=== PATIENT | male | born 1940 | race Caucasian/White ===

== ENCOUNTER → 2016-11-29 | Outpatient (CLI) | payer BC ==
[~2016-11-29] MED LIST: ALBU4TAB10 PO; ALBUAER2 INH; ASCA500 PO; ASPI81TA28 PO; ATV5X PO; BUSP1TAB46 PO; DICY1TAB25 PO; EFFSR75 PO; INSDGIPEN SC; INSU1INJ2 SQ; INSU50IN3 SC; LEVA45AE INH; LEVO100T PO; LEVO112T4 PO; LEVO1TAB35 PO; LPT/20 PO; LPT20 PO; MRLP17 PO; MULT-506 PO; OMEP20CA9 PO; PANT40TA PO; PLV75 PO; PRVHFAIN INH; SYMIN160 INH; TPRSR/25 PO; VENL150C56 PO; VNTHFA/IN INH; [UNRECOGNIZED DRUG - CODE] INJ
[2016-11-29 18:11] LABS: THYROID STIMULATING HORMONE 0.236 uIu/ml (0.300-4.500)
== END | disposition home or self-care (01) ==
LOC: C.LABPVFM 13:26
PROVIDERS: ATTEND Nurse Practitioner
DX: E03.9 Hypothyroidism, unspecified (principal)

== ENCOUNTER → 2016-12-16 | Outpatient (CLI) | payer BC ==
--- NOTE | 2016-12-16 14:52 | DIAGNOSTIC IMAGING REPORT ---
TWO VIEW CHEST CLINICAL HISTORY: Dyspnea. FINDINGS: PA and lateral chest radiographs are compared to study dated 07/27/2015 and correlated with chest CT dated 03/06/2015. The cardiomediastinal silhouette is unremarkable. There is atherosclerotic calcification of the thoracic aorta. Advanced emphysema and chronic interstitial thickening are similar to previous. There are numerous foci of parenchymal nodularity with more focal patchy consolidation seen in the right upper lobe. There is biapical scarring. No pleural effusion or pneumothorax is identified. The skeletal structures are osteopenic. The bony thorax appears intact. IMPRESSION: 1. Advanced emphysema. 2. There are scattered foci of parenchymal nodularity with more focal patchy airspace consolidation seen in the right upper lobe. The appearance suggests an infectious/inflammatory pneumonitis. Clinical correlation will be required and radiographic follow-up to resolution is recommended. Electronically signed by: Vega Johnston M.D. 12/16/2016 2:51 PM Dictated Date/Time: 12/16/2016 2:49 PM
== END | disposition home or self-care (01) ==
LOC: C.RADPV 14:27
PROVIDERS: ATTEND Nurse Practitioner
DX: R06.02 Shortness of breath (principal); J43.9 Emphysema, unspecified; R91.8 Other nonspecific abnormal finding of lung field

== ENCOUNTER → 2016-12-31 | Outpatient (CLI) | payer BC ==
[2016-12-31 12:47] LABS: ALT/SGPT 19 U/L (12-78); AST/SGOT 13 U/L (15-37); BLOOD UREA NITROGEN 15 mg/dl (7-18); BUN/CREATININE RATIO 13.4 (10-20); CALCIUM 9.1 mg/dl (8.5-10.1); CARBON DIOXIDE 30 mmol/L (21-32); CHLORIDE 98 mmol/L (98-107); GLUCOSE 324 mg/dl (70-99); POTASSIUM 4.3 mmol/L (3.5-5.1); SODIUM 136 mmol/L (136-145)
[2016-12-31 12:50] LABS: ALB/GLOB RATIO 0.9 (0.9-2); ALKALINE PHOSPHATASE 132 U/L (45-117); CHOLESTEROL 208 mg/dl (0-200); CHOLESTEROL/HDL RATIO 4.7; HDL CHOLESTEROL 44 mg/dl; LDL CHOLESTEROL CALCULATED 115 mg/dl; TRIGLYCERIDES 246 mg/dl (0-150); VERY LOW DENSITY LIPOPROT CALC 49 mg/dl
[2016-12-31 12:57] LABS: BETA-HYDROXYBUTYRATE 0.97 mg/dL (0.2-2.81)
[2016-12-31 13:13] LABS: RATIO 35.8 mcg/mg (0-30.0)
[2016-12-31 13:18] LABS: ESTIMATED AVERAGE GLUCOSE 286 mg/dl; HA1C FLAG Normal (Normal)
--- NOTE | 2017-01-04 10:46 | CODING QUERY MEDICAL NECESSITY ---
SUPPORTING DIAGNOSIS NEEDED A supporting diagnosis is required for the test/procedure performed on this patient in order for us to be reimbursed by the patient's insurance. Please provide a supporting diagnosis for the following test/procedure listed below next to the test name along with your signature. *If there is no additional diagnosis for this patient that would support the following test/procedure please document that below next to the test/procedure. Test(s)/Procedure(s) that require a supporting diagnosis: * GLYCATED HEMOGLOBIN DIAGNOSIS: * DOS: 12/31/16 Provider Signature: Date: Thank you Monica Busby Health Information Management Once completed, please kindly fax back to [phone] For questions please call [phone]
== END | disposition home or self-care (01) ==
LOC: C.LABPVFM 10:10
PROVIDERS: ATTEND Nurse Practitioner Adult Health
DX: E78.5 Hyperlipidemia, unspecified (principal); E11.49 Type 2 diabetes mellitus with other diabetic neurological complication

== ENCOUNTER → 2017-01-14 | Outpatient (CLI) | payer BC | END | disposition home or self-care (01) | LOC: C.LABPVFM 09:44 | PROVIDERS: ATTEND Nurse Practitioner | DX: E03.9 Hypothyroidism, unspecified (principal) ==

== ENCOUNTER 2017-02-17 09:07 | Inpatient (IN) | payer BC, OTHER ==
[~2017-02-17] VITALS: Ht 182.9 cm; Wt 74.0 kg
[~2017-02-17 09:07] MED LIST changes: -ALBU4TAB10 PO; -BUSP1TAB46 PO; -DICY1TAB25 PO; -INSDGIPEN SC; -INSU1INJ2 SQ; -LEVA45AE INH; -LEVO100T PO; -LEVO1TAB35 PO; -LPT20 PO; -MRLP17 PO; -PANT40TA PO; -PLV75 PO; -PRVHFAIN INH; -VENL150C56 PO; -VNTHFA/IN INH
--- NOTE | 2017-02-17 09:35 | EMERGENCY ROOM VISIT NOTE ---
History Report prepared by Jody: Ashley Desouza Under the Supervision of: Dr. Pierce Cook M.D. First contact with patient: 09:13 Chief Complaint: ILLNESS Stated Complaint: ILLNESS History of Present Illness The patient is a 76 year old male who presents to the Emergency Room with complaints of a persistent cough over the past 3 days. The cough is productive with yellow sputum. Yesterday, the patient followed up with his PCP and as diagnosed with pneumonia. He was put on a Z-sergio and took his first dose yesterday. Since then, he has continued to feel nauseated and generally feel unwell. The patient is not normally on oxygen at home. He occasionally has some shortness of breath when walking around the house. He has an inhaler at home. He has been taking Tylenol, most recently last night. Source of History: patient Onset: 3 days ago Position: other (global) Quality: other (productive cough w/ yellow sputum) Timing: other (persistent) Associated Symptoms: + SOB, + nausea Review of Systems See HPI for pertinent positives & negatives. A total of 10 systems reviewed and were otherwise negative. Past Medical & Surgical Medical Problems: (1) Asthma (2) Bilateral pneumonia (3) Bronchitis (4) COPD exacerbation (5) Diabetes (6) Dyspnea (7) Pneumonia Surgical Problems: (1) H/O lumbar discectomy Family History Cancer Diabetes mellitus Heart disease Hypertension Lung disease Social History Smoking Status: Former Smoker Alcohol Use: none Marital Status: Housing Status: lives with family Occupation Status: unemployed Current/Historical Medications Scheduled Alprostadil (Vasodilator) (Edex), 20 MCG INJ UD Ascorbic Acid (Vitamin C), 500 MG PO DAILY Aspirin (Aspirin Ec), 81 MG PO DAILY Atorvastatin (Atorvastatin Calcium), 20 MG PO QPM Budesonide/Formoterol Fumarate (Symbicort 160/4.5 Inhaler), 2 PUFFS INH BID Insulin Aspart (Novolog Penfill), 15 UNITS SQ AC Insulin Glargine (Lantus Solostar), 35 UNITS SC QPM Levothyroxine Sodium (Levothyroxine Sodium), 112 MCG PO DAILY Metoprolol Succinate (Metoprolol Succinate ER), 25 MG PO BID Multivitamin (Multivitamin), 1 TAB PO DAILY Omeprazole (Prilosec), 20 MG PO DAILY Venlafaxine Hcl (Effexor Extended Rel), 75 MG PO DAILY Scheduled PRN Lorazepam (Lorazepam), 0.5 MG PO HS PRN for Sleep Miscellaneous Medications Albuterol (Ventolin), 4 MG PO Allergies Coded Allergies: No Known Allergies (Verified , 03/06/15) Physical Exam Vital Signs Date Time Temp Pulse Resp B/P Pulse Ox O2 Delivery O2 Flow Rate FiO2 02/17/17 10:43 102 20 117/72 100 Nebulizer 7.0 02/17/17 10:30 99 18 95 Room Air 02/17/17 10:04 102 22 137/75 96 Room Air 02/17/17 09:29 95 Room Air 02/17/17 09:29 95 Room Air 02/17/17 09:18 104 02/17/17 09:13 36.7 105 21 153/84 95 Room Air Physical Exam GENERAL: Patient is a healthy-appearing well-nourished 76 year old male HEAD: Normocephalic atraumatic EYES: Ocular movements intact pupils equal and react to light OROPHARYNX mucous membranes are moist no exudates present no erythema or edema present NECK: Supple no nuchal rigidity CHEST: Good equal expansion LUNGS: Wheezes on the left to auscultation CARDIAC: Normal S1 and S2 ABDOMEN: Soft nontender no guarding BACK: No CVA tenderness EXTREMITIES: No pain upon palpation normal muscle strength in all groups no clubbing cyanosis or edema NEURO: Patient is following commands is answering questions appropriately. Alert and oriented x3 Cranial Nerves 2-12 grossly intact Medical Decision & Procedures ER Provider Diagnostic Interpretation: Radiology results as stated below per my review and radiologist interpretation: CHEST ONE VIEW PORTABLE CLINICAL HISTORY: Shortness of breath COMPARISON STUDY: 12/16/2016 FINDINGS: The cardiac images so contours remain stable. The chest is emphysematous configuration. Minimal increased markings persist within the right upper lung zone laterally, likely representing scarring or inflammatory residua. There is no acute parenchymal consolidation. There are no pleural effusions.[ IMPRESSION: 1. Emphysema 2. Residual increased markings within the right upper lung zone laterally, likely representing scarring or an inflammatory residua. Electronically signed by: Ferny Pina M.D. 02/17/2017 10:01 AM Dictated Date/Time: 02/17/2017 9:59 AM Laboratory Results Test 02/17/17 00:00 02/17/17 09:02/17/17 09:30 Urine Color YELLOW Urine Appearance CLEAR (CLEAR) Urine pH 6.0 (4.5-7.5) Urine Specific [place] 1.029 (1.000-1.030) Urine Protein TRACE (NEG) Urine Glucose (UA) 3+ (NEG) Urine Ketones 1+ (NEG) Urine Occult Blood NEG (NEG) Urine Nitrite NEG (NEG) Urine Bilirubin NEG (NEG) Urine Urobilinogen NEG (NEG) Urine Leukocyte Esterase NEG (NEG) Urine WBC (Auto) 1-5 /hpf (0-5) Urine RBC (Auto) 0-4 /hpf (0-4) Urine Hyaline Casts (Auto) 0 /lpf (0-5) Urine Epithelial Cells (Auto) 20-30 /lpf (0-5) Urine Bacteria (Auto) NEG (NEG) Prothrombin Time 10.7 SECONDS (9.0-12.0) Prothromb Time International Ratio 1.0 (0.9-1.1) Activated Partial Thromboplast Time 32.9 SECONDS (21.0-31.0) Partial Thromboplastin Ratio 1.3 Est Creatinine Clear Calc Drug Dose 66.8 ml/min Total Bilirubin 0.7 mg/dl (0.2-1) Aspartate Amino Transf (AST/SGOT) 22 U/L (15-37) Alanine Aminotransferase (ALT/SGPT) 20 U/L (12-78) Alkaline Phosphatase 121 U/L (45-117) Total Creatine Kinase 239 U/L (39-308) Creatine Kinase MB 1.8 ng/ml (0.5-3.6) Creatine Kinase MB Ratio 0.8 (0-3.0) Troponin I < 0.015 ng/ml (0-0.045) Total Protein 7.5 gm/dl (6.4-8.2) Albumin 3.6 gm/dl (3.4-5.0) Globulin 3.9 gm/dl (2.5-4.0) Albumin/Globulin Ratio 0.9 (0.9-2) Influenza Type A (RT-PCR) Neg for Influ A (NEG) Influenza Type A Antigen Neg for Influ A (NEG) Influenza Type B Antigen Neg for Influ B (NEG) Influenza Type B (RT-PCR) Neg for Influ B (NEG) Labs reviewed by ED physician. Medications Administered Medications (Trade) Dose Ordered Sig/Rose Mary Route Start Time Stop Time Status Last Admin Dose Admin Albuterol/ Ipratropium 12 ml 12 ml ONE STAT INH 02/17/17 09:45 02/17/17 09:46 DC 02/17/17 10:30 12 ML Sodium Chloride (Nss 1000ml) 1,000 ml @ 999 mls/hr Q1H1M STAT IV 02/17/17 09:45 02/17/17 10:45 DC 02/17/17 10:02 999 MLS/HR Acetaminophen (Tylenol Tab) 1,000 mg NOW STAT PO 02/17/17 09:45 02/17/17 09:46 DC 02/17/17 09:59 1,000 MG Piperacillin Sod/ Tazobactam Sod (Zosyn Iv) 4.5 gm NOW STAT IV 02/17/17 10:11 02/17/17 10:14 DC 02/17/17 10:42 4.5 GM Levofloxacin 750 mg 750 mg NOW STAT IV 02/17/17 10:11 02/17/17 10:14 DC 02/17/17 10:42 750 MG Vancomycin HCl/ Sodium Chloride (Vancomycin Inj/ Nss 250ml) 270 ml @ 125 mls/hr NOW STAT IV 02/17/17 10:11 02/17/17 12:20 DC 02/17/17 12:10 125 MLS/HR ECG Indication: SOB/dyspnea Rate (beats per minute): 101 Rhythm: other (accelerated junctional) Findings: no acute ischemic change, no ectopy ED Course 0916: Past medical records reviewed. The patient was evaluated in room A11. A complete history and physical examination was performed. 0945: Ordered Tylenol Tab 1000 mg PO, NSS 1000 ml @ 999 mls/hr IV. 1011: Ordered Vancomycin HCl 1000 mg/NSS 270 ml @ 125 mls/hr IV, Levofloxacin 750 mg IV, Zosyn 4.5 gm IV. 1041: Upon reexamination the patient is resting comfortably. I discussed results and treatment plan with the patient. He verbalizes agreement and understanding. I spoke with Dr. Rowell from the [facility] Hospitalist Service. The patient will be evaluated for further management. Medical Decision Differential diagnosis: Etiologies such as infections, reactive airway disease, pneumonia, pneumothorax , COPD, CHF, cardiac ischemia, pulmonary embolism, musculoskeletal, gastrointestinal, as well as others were entertained. This is a 76-year-old male who presents emergency department complaining of shortness of breath. The patient is acutely tachypneic on examination. He does have evidence of pneumonia on his chest x-ray. The patient was placed on an antibiotic yesterday however has continued to deteriorate. Based on these findings blood cultures were obtained. The patient does have an elevation in his white blood count. He was started on antibiotics. His chest x-rays concerning for pneumonia. I did discuss the case with the hospitalist service who agreed to admit the patient. Patient was in agreement with the treatment plan. Consults Time Called: 1035 Consulting Physician: Dr. Sorin HARVEY Hospitalist Returned Call: [phone] I discussed the case with him. The patient will be evaluated for further management. Impression Primary Impression: Pneumonia Scribe Attestation The scribe's documentation has been prepared under my direction and personally reviewed by me in its entirety. I confirm that the note above accurately reflects all work, treatment, procedures, and medical decision making performed by me. Departure Information Dispostion Being Evaluated By Hospitalist Referrals Maribell Worrell, Danae (PCP) Patient Instructions [facility]
[2017-02-17] MEDS ORDERED: ACETAMINOPHEN 500 MG TAB PO STA (09:45)
[2017-02-17] MEDS ORDERED: SODIUM CHLORIDE 0.9% 1000ML 1,000 ML IV STA (09:45)
[2017-02-17] MEDS ORDERED: ALBUT/IPRATROP 3MG/0.5MG NEB 3 ML VIAL INH STA (09:45)
[2017-02-17 09:51] LABS: BASO % 0.2 %; BASO ABS # 0.02 K/uL (0-0.2); COMPLETE YES; EOS % 0.2 %; HEMATOCRIT 37.7 % (42-52); IG% 0.2 %; LYMPH % 6.7 %; LYMPH ABS # 0.57 K/uL (1.2-3.4); MEAN CORPUSCULAR HGB CONC 33.7 g/dl (32-36); MEAN PLATELET VOLUME 8.9 fL (7.4-10.4); NEUT % 82.7 %; PLATELET COUNT 213 K/uL (130-400); RED BLOOD COUNT 4.54 M/uL (4.7-6.1); WHITE BLOOD COUNT 8.46 K/uL (4.8-10.8)
[2017-02-17 09:59] LABS: ALT/SGPT 20 U/L (12-78); AST/SGOT 22 U/L (15-37); BLOOD UREA NITROGEN 12 mg/dl (7-18); BUN/CREATININE RATIO 12.4 (10-20); CALCIUM 8.8 mg/dl (8.5-10.1); CARBON DIOXIDE 29 mmol/L (21-32); CHLORIDE 98 mmol/L (98-107); GLUCOSE 233 mg/dl (70-99); SODIUM 134 mmol/L (136-145)
--- NOTE | 2017-02-17 10:03 | DIAGNOSTIC IMAGING REPORT ---
CHEST ONE VIEW PORTABLE CLINICAL HISTORY: Shortness of breath COMPARISON STUDY: 12/16/2016 FINDINGS: The cardiac images so contours remain stable. The chest is emphysematous configuration. Minimal increased markings persist within the right upper lung zone laterally, likely representing scarring or inflammatory residua. There is no acute parenchymal consolidation. There are no pleural effusions.[ IMPRESSION: 1. Emphysema 2. Residual increased markings within the right upper lung zone laterally, likely representing scarring or an inflammatory residua. Electronically signed by: Ferny Pina M.D. 02/17/2017 10:01 AM Dictated Date/Time: 02/17/2017 9:59 AM
[2017-02-17] MEDS ORDERED: ALBU4TAB10 PO (10:06)
[2017-02-17] MEDS ORDERED: LEVAQUIN 750MG / 150ML D5W IV STA (10:11)
[2017-02-17] MEDS ORDERED: VANCOMYCIN INJ 1,000 MG in SODIUM CHLORIDE 0.9% 250ML 250 ML IV STA (10:11)
[2017-02-17] MEDS ORDERED: PIPERACILLIN/TAZOBACTAM 4.5 GM/100ML D5W IV STA (10:11)
[2017-02-17 10:15] LABS: ALB/GLOB RATIO 0.9 (0.9-2); ALKALINE PHOSPHATASE 121 U/L (45-117); CKMB/CK RATIO 0.8 (0-3.0)
[2017-02-17 10:30] VITALS: PULSE 99; O2SAT 95
[2017-02-17] MEDS ORDERED: LORAZEPAM 0.5 MG TAB PO PRN ×2 (11:00→13:00)
[2017-02-17] MEDS ORDERED: ONDANSETRON INJ 2 MG/ML 2 ML VIAL IV PRN (11:00)
[2017-02-17] MEDS ORDERED: ACETAMINOPHEN 325 MG TAB PO PRN (11:00)
[2017-02-17 11:11] VITALS: O2SAT 95; Ht 182.9 cm; Wt 74.0 kg
[2017-02-17] MEDS ORDERED: GLUCAGON FOR INJ 1 MG VIAL SQ PRN (11:15)
[2017-02-17] MEDS ORDERED: GLUCOSE 10 TABS/TUBE PO PRN (11:15)
[2017-02-17] MEDS ORDERED: DEXTROSE 50% 50 ML SYR IV PRN (11:15)
[2017-02-17] MEDS ORDERED: GLUCOSE 40% GEL 15 GM TUBE PO PRN (11:15)
[2017-02-17 11:27] LABS: PARTIAL THROMBOPLASTIN RATIO 1.3; PROTHROMBIN TIME (PATIENT) 10.7 SECONDS (9.0-12.0)
[2017-02-17] MEDS ORDERED: LEVALBUTEROL/IPRATROPIUM NEB INH PRN (11:30)
--- NOTE | 2017-02-17 11:42 | History and Physical ---
History & Physical Date & Time of Service: Feb 17, 2017 at 11:15 Chief Complaint: Illness Primary Care Physician: Maribell Worrell C.R.N.P History of Present Illness Source: patient, hospital records 76 yo male with a history of COPD, asthma and DM, presents to the ED due to feeling "loopy" after starting Zithromax yesterday as outpatient. The patient reports feeling ill for several days with chills, sweats, poor appetite, increase shortness of breath and a productive cough of yellow sputum. He was using his maintenance and rescue inhalers but continued to get worse. He said that he has a history of pneumonia and had these symptoms at that time. He went to see Dr. Velez on 02/16 and was prescribed Zithromax for pneumonia. After one dose the patient had confusion and cannot remember everything that happened last night. His breathing got worse overnight. For these reasons he presented to the ED. His CXR showed emphysema and right upper lobe scarring. He had a normal WBC and normal renal function. He was started on Levaquin IV and given an hour long nebulizer treatment. On my exam, he just finished the nebulizer and was feeling sweaty and jittery, feels like the treatment made him worse. Past Medical/Surgical History Medical Problems: (1) Asthma Status: Chronic (2) Bronchitis Status: Chronic (3) COPD exacerbation Status: Chronic (4) Diabetes Status: Chronic (5) Pneumonia Status: Resolved Surgical Problems: (1) H/O lumbar discectomy Status: Resolved Family History Cancer Diabetes mellitus Heart disease Hypertension Lung disease Social History Smoking Status: Former Smoker Marital Status: Occupational Status: unemployed Immunizations History of Influenza Vaccine: Yes Influenza Vaccine Date: Aug 14, 2009 History of Tetanus Vaccine?: Yes Tetanus Immunization Date: March 28, 2005 History of Pneumococcal: Yes Pneumococcal Date: Aug 28, 2009 History of Hepatitis B Vaccine: No Multi-Drug Resistant Organisms History of MDRO: No Allergies Coded Allergies: No Known Allergies (Verified , 03/06/15) Home Medications Scheduled Alprostadil (Vasodilator) (Edex), 20 MCG INJ UD Ascorbic Acid (Vitamin C), 500 MG PO DAILY Aspirin (Aspirin Ec), 81 MG PO DAILY Atorvastatin (Atorvastatin Calcium), 20 MG PO QPM Budesonide/Formoterol Fumarate (Symbicort 160/4.5 Inhaler), 2 PUFFS INH BID Insulin Lispro Protamine & Lis (Humalog Mix 50/50 Kwikpen), 32 UNITS SC BID Levothyroxine Sodium (Levothyroxine Sodium), 112 MCG PO DAILY Metoprolol Succinate (Metoprolol Succinate ER), 25 MG PO BID Multivitamin (Multivitamin), 1 TAB PO DAILY Omeprazole (Prilosec), 20 MG PO DAILY Venlafaxine Hcl (Effexor Extended Rel), 75 MG PO DAILY Scheduled PRN Lorazepam (Lorazepam), 0.5 MG PO HS PRN for Sleep Miscellaneous Medications Albuterol (Ventolin), 4 MG PO Review of Systems Constitutional: + chills, + fatigue, + sweats, + weakness, No fever, No weight loss Eyes: No diplopia, No discharge, No eye pain, No problem reported, No redness, No worsening of vision ENT: No dental problems, No hearing loss, No nasal symptoms, No problem reported, No sore throat, No tinnitus, No trouble swallowing, No unusual epistaxis Respiratory: + cough, + dyspnea at rest, + dyspnea on exertion, + shortness of breath, + sputum, No hemoptysis, No wheezing Cardiovascular: No PND, No chest pain, No claudication, No edema, No orthopnea , No palpitations, No problem reported Abdomen: + problem reported (loss of appetite), No GI bleeding, No constipation , No diarrhea, No nausea, No pain, No vomiting Musculoskeletal: No calf pain, No joint pain, No muscle pain, No problem reported, No swelling Genitourinary - Male: No dysuria, No hematuria, No urinary frequency, No urinary urgency Neurologic: + memory loss (confusion last night), No balance problems, No numbness/tingling, No paralysis, No problem reported, No vertigo, No weakness Psychiatric: No anhedonism, No anxiety, No depression symptoms, No insomnia, No problem reported, No substance abuse Endocrine: No excessive thirst, No excessive urination, No fatigue, No problem reported Hematologic / Lymphatic: No abnormal bleeding/bruising, No clotting problems, No night sweats, No problem reported, No swollen lymph nodes Integumentary: No bleeding, No color change, No itch, No new/changing skin lesions, No problem reported, No rash Allergic / Immunologic: No environmental allergies, No food allergies, No frequent infections, No hives, No pet sensitivities, No poor healing, No problem reported, No prolonged convalescence, No seasonal allergies Physical Exam Vital Signs Date Time Temp Pulse Resp B/P Pulse Ox O2 Delivery O2 Flow Rate FiO2 02/17/17 10:43 102 20 117/72 100 Nebulizer 7.0 02/17/17 10:30 99 18 95 Room Air 02/17/17 10:04 102 22 137/75 96 Room Air 02/17/17 09:29 95 Room Air 02/17/17 09:29 95 Room Air 02/17/17 09:18 104 02/17/17 09:13 36.7 105 21 153/84 95 Room Air General Appearance: WD/WN, no apparent distress Head: normocephalic, atraumatic Eyes: normal inspection, EOMI, sclerae normal ENT: normal ENT inspection, hearing grossly normal, pharynx normal Neck: supple, no adenopathy, no JVD, trachea midline Respiratory/Chest: chest non-tender, no respiratory distress, no accessory muscle use, + crackles (right base) Cardiovascular: no edema, no gallop, no JVD, no murmur, normal peripheral pulses, + tachycardia Abdomen/GI: normal bowel sounds, non tender, soft, no organomegaly Back: normal inspection, no CVA tenderness, no muscle spasm, normal range of motion Extremities/Musculoskelatal: normal inspection, no calf tenderness, normal capillary refill, no pedal edema, normal range of motion, pelvis stable Neurologic/Psych: attending psychiatrist II-XII nml as tested, no motor/sensory deficits, alert, normal mood/affect, normal reflexes, oriented x 3 Skin: normal color, warm/dry, no rash Lymphatic: no adenopathy Diagnostics Laboratory Results Results Past 24 Hours Test 02/17/17 09:25 02/17/17 09:30 Range/Units White Blood Count 8.46 4.8-10.8 K/uL Red Blood Count 4.54 4.7-6.1 M/uL Hemoglobin 12.7 14.0-18.0 g/dL Hematocrit 37.7 42-52 % Mean Corpuscular Volume 83.0 80-100 fL Mean Corpuscular Hemoglobin 28.0 25-34 pg Mean Corpuscular Hemoglobin Concent 33.7 32-36 g/dl Platelet Count 213 130-400 K/uL Mean Platelet Volume 8.9 7.4-10.4 fL Neutrophils (%) (Auto) 82.7 % Lymphocytes (%) (Auto) 6.7 % Monocytes (%) (Auto) 10.0 % Eosinophils (%) (Auto) 0.2 % Basophils (%) (Auto) 0.2 % Neutrophils # (Auto) 6.98 1.4-6.5 K/uL Lymphocytes # (Auto) 0.57 1.2-3.4 K/uL Monocytes # (Auto) 0.85 0.11-0.59 K/uL Eosinophils # (Auto) 0.02 0-0.5 K/uL Basophils # (Auto) 0.02 0-0.2 K/uL RDW Standard Deviation 44.8 36.4-46.3 fL RDW Coefficient of Variation 14.7 11.5-14.5 % Immature Granulocyte % (Auto) 0.2 % Immature Granulocyte # (Auto) 0.02 0.00-0.02 K/uL Sodium Level 134 136-145 mmol/L Potassium Level 4.0 3.5-5.1 mmol/L Chloride Level 98 98-107 mmol/L Carbon Dioxide Level 29 21-32 mmol/L Anion Gap 7.0 3-11 mmol/L Blood Urea Nitrogen 12 7-18 mg/dl Creatinine 1.00 0.60-1.40 mg/dl Est Creatinine Clear Calc Drug Dose 66.8 ml/min Estimated GFR () 85.0 Estimated GFR (Non- 73.3 BUN/Creatinine Ratio 12.4 10-20 Random Glucose 233 70-99 mg/dl Calcium Level 8.8 8.5-10.1 mg/dl Total Bilirubin 0.7 0.2-1 mg/dl Aspartate Amino Transf (AST/SGOT) 22 15-37 U/L Alanine Aminotransferase (ALT/SGPT) 20 12-78 U/L Alkaline Phosphatase 121 45-117 U/L Total Creatine Kinase 239 39-308 U/L Creatine Kinase MB 1.8 0.5-3.6 ng/ml Creatine Kinase MB Ratio 0.8 0-3.0 Troponin I < 0.015 0-0.045 ng/ml Total Protein 7.5 6.4-8.2 gm/dl Albumin 3.6 3.4-5.0 gm/dl Globulin 3.9 2.5-4.0 gm/dl Albumin/Globulin Ratio 0.9 0.9-2 Microbiology Results 02/17/17 Blood Culture, Received Pending 02/17/17 Blood Culture, Received Pending Diagnostic Radiology CXR - emphysematous changes, scarring right upper lobe, no definitive infiltrate EKG accelerated junctional rhythm Impression Assessment and Plan 76 yo male with productive cough and dyspnea, concerns for pneumonia as outpatient, bad reaction to Zithromax - Community acquired pneumonia: difficult to see an infiltrate on CXR , has some crackles right base and productive cough given his age and COPD at baseline, will admit for Levaquin IV and nebulizers since he had a bad reaction to hour long Albuterol, will administer Levalbuterol instead, only every 6 hours as needed NSS at 100cc/hr suspect that he can transition to Levaquin PO tomorrow, complete 5-7 days total, possible d/c tomorrow - COPD: no signs of exacerbation, no wheezing on exam, will continue Symbicort, use Levalbuterol PRN - DM: consult pharmacy to convert home insulin regimen while here, Novolog coverage, diabetic diet - Hyperlipidemia: statin - Depression: Effexor - DVT prophylaxis: Lovenox Level of Care Med/Surg Resuscitation Status FULL RESUSCITATION VTE Prophylaxis VTE Risk Assessment Done? Y/N: Yes Risk Level: High Given or contraindicated: Enoxaparin (Lovenox)SQ Additional Copies To Maribell Worrell C.R.N.P
[2017-02-17] MEDS ORDERED: ALBUT/IPRATROP 3MG/0.5MG NEB 3 ML VIAL INH SCH (12:00)
[2017-02-17] MEDS: SODIUM CHLORIDE 0.9% 1000ML 1,000 ML IV SCH ×2 (12:10→21:26)
[2017-02-17] MEDS ORDERED: LEVALBUTEROL 0.63MG/3 ML NEB INH PRN (12:15)
[2017-02-17] MEDS ORDERED: IPRATROPIUM BROMIDE NEB SOLN 0.02% 2.5 ML VIAL INH PRN (12:15)
[2017-02-17] MEDS ORDERED: LORAZEPAM 1 MG TAB PO STA (12:46)
[2017-02-17 13:23] LABS: INFLUENZA A PCR Neg for Influ A (NEG); INFLUENZA B PCR Neg for Influ B (NEG)
[2017-02-17] MEDS ORDERED: PHARMACY GLYCEMIC MGMT CONSULT PRN (13:30)
[2017-02-17] MEDS: INSULIN ASPART 100 UNITS/ML 3 ML PEN SC SCH ×3 (13:30→22:05)
[2017-02-17 14:42] VITALS: BP 115/63; PULSE 92; TEMP 36.9; O2SAT 96
--- NOTE | 2017-02-17 14:49 | Pharmacy Progress Note ---
Glycemic Control Intl Consult Date of Service Feb 17, 2017. Scope Glycemic Pharmacist consulted by Dr Rowell on 02/17/17 for glycemic control and to write orders per [facility] inpatient glycemic control protocol Objective Weight (Kilograms): 74.000 Accuchecks BSG (last 24hrs): Test 02/17/17 09:25 Random Glucose 233 mg/dl (70-99) Laboratory Data (last 24hrs) Test 02/17/17 09:25 Anion Gap 7.0 mmol/L BUN/Creatinine Ratio 12.4 Blood Urea Nitrogen 12 mg/dl Creatinine 1.00 mg/dl Potassium Level 4.0 mmol/L Sodium Level 134 mmol/L White Blood Count 8.46 K/uL Red Blood Count 4.54 M/uL Hemoglobin 12.7 g/dL Hematocrit 37.7 % Mean Corpuscular Volume 83.0 fL Mean Corpuscular Hemoglobin 28.0 pg Mean Corpuscular Hemoglobin Concent 33.7 g/dl Platelet Count 213 K/uL Mean Platelet Volume 8.9 fL Neutrophils (%) (Auto) 82.7 % Lymphocytes (%) (Auto) 6.7 % Monocytes (%) (Auto) 10.0 % Eosinophils (%) (Auto) 0.2 % Basophils (%) (Auto) 0.2 % Neutrophils # (Auto) 6.98 K/uL Lymphocytes # (Auto) 0.57 K/uL Monocytes # (Auto) 0.85 K/uL Eosinophils # (Auto) 0.02 K/uL Basophils # (Auto) 0.02 K/uL HbA1c Item Value Date Time Hemoglobin A1c 11.6 % H 12/31/16 1015 Recent Pertinent Medications Outpatient Anti-diabetic Regimen: * Humalog mix 50/50 32 units SQ BID * A1c = 11.6 % 12/31/16 Risk Factors for Insulin Resistance: * Infection: Vancomycin + Zosyn IV x 1 dose in ER, Levaquin IV daily for CAP * Diet: AHA/T2DM Assessment & Plan ASSESSMENT: * 76 yr old T2DM male with poor outpatient control evidenced by recent A1c of 11.6 % admitted with CAP. * Will convert the patient's home dose of Humalog 50/50 (total of 64 units per day) to a 50/50 basal/bolus regimen with lantus and novolog. * ADA & AACE recommend a goal blood sugar range 140-180 mg/dl for the majority of critically ill & non-critically ill patients. However, more stringent targets may be selected in individual cases. Will utilize more stringent goal of 110-140 mg/dl based on patient age & comorbidities. Additionally, tighter glycemic control is warranted to facilitate wound/infection healing. PLAN FOR INPATIENT GLYCEMIC CONTROL: * Basal insulin with LANTUS 15 units SQ BID * NOVOLOG per scale ACHS * Goal Range: Low 110 mg/dL - High 140 mg/dL * Correction Factor: 30 mg/dL/unit * Nutritional / Prandial insulin per carb ratio of 1 unit per 10 grams CHO consumed * Please note that the plan above was derived based on current level of insulin resistance and hospital stress. These recommendations are appropriate for inpatient admission only. Plan of care upon discharge will need to be reassessed to avoid potential outpatient hypo/hyperglycemia. Thank you.
[2017-02-17 16:00] VITALS: O2SAT 96
[2017-02-17 16:36] LABS: URINE APPEARANCE CLEAR (CLEAR); URINE BILIRUBIN NEG (NEG); URINE COLOR YELLOW; URINE EPITHELIAL CELL AUTO 20-30 /lpf (0-5); URINE NITRITE NEG (NEG); URINE SPECIFIC GRAVITY 1.029 (1.000-1.030); UROBILINOGEN NEG (NEG)
[2017-02-17 16:39] LABS: MANUAL MICROSCOPIC REQUIRED? NO; REVIEW REQ? NO
[2017-02-17] MEDS ORDERED: LORAZEPAM INJ 1 MG in SYRINGE 0.5 ML IV PRN (17:45)
[2017-02-17] MEDS: METOPROLOL SUCC 25MG EXT REL TAB PO SCH (19:43)
[2017-02-17] MEDS ORDERED: INSULIN GLARGINE SOLOSTAR 100 UNITS/ML 3 ML PEN SC SCH ×2 (20:00→22:00)
[2017-02-17] MEDS ORDERED: INSU1INJ2 SQ (20:24)
[2017-02-17] MEDS ORDERED: INSDGIPEN SC (20:24)
[2017-02-17] MEDS ORDERED: ATORVASTATIN 20 MG TAB PO SCH (21:00)
[2017-02-17] MEDS ORDERED: ENOXAPARIN 40 MG/0.4 ML SYR SQ SCH (21:00)
[2017-02-17] MEDS: BUDESONIDE/FORMOTEROL FUMARATE 160/4.5 60 PUFFS/INHALER INH SCH (21:40)
[2017-02-17 22:28] VITALS: PULSE 106; O2SAT 100
[2017-02-17 23:17] VITALS: BP 138/66; PULSE 108; TEMP 36.9; O2SAT 96
[2017-02-18] MEDS ORDERED: MoRPHine SULFATE 2 MG/ML CARP IV STA (00:38)
[2017-02-18] MEDS ORDERED: LEVOTHYROXINE 112 MCG TAB PO SCH (06:30)
[2017-02-18] MEDS: INSULIN ASPART 100 UNITS/ML 3 ML PEN SC SCH ×2 (06:30→12:33)
[2017-02-18 07:10] VITALS: BP 125/72; PULSE 95; TEMP 36.8; O2SAT 94
[2017-02-18 07:48] LABS: BASO % 0.2 %; BASO ABS # 0.01 K/uL (0-0.2); COMPLETE YES; EOS % 1.2 %; HEMATOCRIT 34.1 % (42-52); IG% 0.2 %; LYMPH % 14.8 %; LYMPH ABS # 0.75 K/uL (1.2-3.4); MEAN CELL VOLUME 83.2 fL (80-100); MEAN CORPUSCULAR HEMOGLOBIN 27.3 pg (25-34); MEAN CORPUSCULAR HGB CONC 32.8 g/dl (32-36); MEAN PLATELET VOLUME 8.8 fL (7.4-10.4); MONO % 13.6 %; PLATELET COUNT 180 K/uL (130-400); WHITE BLOOD COUNT 5.08 K/uL (4.8-10.8)
[2017-02-18] MEDS ORDERED: PANTOprazole SOD 40 MG TAB PO SCH (08:00)
[2017-02-18] MEDS ORDERED: ASPIRIN 81 MG ECTAB PO SCH (08:00)
[2017-02-18] MEDS ORDERED: VENLAFAXINE HCL XR 75 MG CAPXR PO SCH (08:00)
[2017-02-18 08:24] LABS: BUN/CREATININE RATIO 9.3 (10-20); CREATININE 0.88 mg/dl (0.60-1.40); MAGNESIUM 1.8 mg/dl (1.8-2.4); POTASSIUM 3.5 mmol/L (3.5-5.1)
[2017-02-18 08:31] LABS: CALCIUM 8.4 mg/dl (8.5-10.1)
[2017-02-18] MEDS: BUDESONIDE/FORMOTEROL FUMARATE 160/4.5 60 PUFFS/INHALER INH SCH (09:01)
[2017-02-18] MEDS: METOPROLOL SUCC 25MG EXT REL TAB PO SCH (09:01)
[2017-02-18] MEDS ORDERED: PRVHFAIN INH (09:11)
[2017-02-18] MEDS ORDERED: LEVO1TAB35 PO (09:11)
--- NOTE | 2017-02-18 09:13 | Discharge Instructions ---
Discharge Instructions Date of Service Feb 18, 2017. Admission Reason for Admission: Bilateral Pneumonia, Dyspnea Discharge Discharge Diagnosis / Problem: pneumonia Discharge Goals Goal(s): Diagnostic testing, Therapeutic intervention Activity Recommendations Activity Limitations: resume your previous activity (take it fairly easy for the next month - no heavy lifting, overhead lifting, repetitive movements) . Instructions / Follow-Up Instructions / Follow-Up pneumonia -fortunately this seemed fairly mild and you got better right away with a simple change in antibiotics -finish out 7 total days of the levaquin - next dose to be tomorrow. as we discussed, while rare, levaquin can occasionally set people up for tendon rupture/tendonitis - which is why we'd recommend taking it fairly easy for the next month, just to help protect you from that as a possibility -we'll work on setting up follow up with [facility] for early next week Current Hospital Diet Patient's current hospital diet: AHA Diet (Heart Healthy), Diabetes Type 2 Diet Discharge Diet Recommended Diet: AHA Diet (Heart Healthy), Diabetes Type 2 Diet Pending Studies Studies pending at discharge: no Laboratory Results Hemoglobin A1c Test 12/31/16 10:15 Range/Units Estimated Average Glucose 286 mg/dl Hemoglobin A1c 11.6 H 4.5-5.6 % Lipid Panel Test 12/31/16 10:15 Range/Units Triglycerides Level 246 H 0-150 mg/dl Cholesterol Level 208 H 0-200 mg/dl HDL Cholesterol 44 mg/dl Cholesterol/HDL Ratio 4.7 LDL Cholesterol, Calculated 115 mg/dl Medical Emergencies . Who to Call and When: Medical Emergencies: If at any time you feel your situation is an emergency, please call 911 immediately. . Non-Emergent Contact Non-Emergency issues call your: Primary Care Provider . . "Provider Documentation" section prepared by Tristan Guillen. . VTE Core Measure Inpt VTE Proph given/why not?: Enoxaparin (Lovenox)SQ
[2017-02-18] MEDS ORDERED: LEVA45AE INH (09:55)
[2017-02-18 10:50] VITALS: BP 125/72; PULSE 95; TEMP 36.8; O2SAT 94
[2017-02-18] MEDS ORDERED: LEVOFLOXACIN 750 MG TAB PO ONE (11:00)
[2017-02-18] MEDS ORDERED: LEVOFLOXACIN / D5W 750 MG in PREMIXED IN D5W 150 ML IV SCH (11:00)
--- NOTE | 2017-02-18 16:29 | Discharge Summary ---
Discharge Summary Date of Service Feb 18, 2017. Discharge Summary Admission Date: Feb 17, 2017 at 10:49 Discharge Date: Feb 18, 2017 Discharge Disposition: Home Principal Diagnosis: CAP Immunizations: Have You Had Influenza Vaccine: Yes Influenza Vaccine Date: Aug 14, 2009 History of Tetanus Vaccine?: Yes Tetanus Immunization Date: March 28, 2005 History of Pneumococcal: Yes Pneumococcal Date: Aug 28, 2009 History of Hepatitis B Vaccine: No Procedures: CHEST ONE VIEW PORTABLE CLINICAL HISTORY: Shortness of breath COMPARISON STUDY: 12/16/2016 FINDINGS: The cardiac images so contours remain stable. The chest is emphysematous configuration. Minimal increased markings persist within the right upper lung zone laterally, likely representing scarring or inflammatory residua. There is no acute parenchymal consolidation. There are no pleural effusions.[ IMPRESSION: 1. Emphysema 2. Residual increased markings within the right upper lung zone laterally, likely representing scarring or an inflammatory residua. Electronically signed by: Ferny Pina M.D. 02/17/2017 10:01 AM Dictated Date/Time: 02/17/2017 9:59 AM Last Resulted CBC 02/18/17 07:15 Red Blood Count 4.10, Mean Corpuscular Volume 83.2, Mean Corpuscular Hemoglobin 27.3, Mean Corpuscular Hemoglobin Concent 32.8, Mean Platelet Volume 8.8, Neutrophils (%) (Auto) 70.0, Lymphocytes (%) (Auto) 14.8, Monocytes (%) (Auto) 13.6, Eosinophils (%) (Auto) 1.2, Basophils (%) (Auto) 0.2, Neutrophils # (Auto ) 3.56, Lymphocytes # (Auto) 0.75, Monocytes # (Auto) 0.69, Eosinophils # (Auto ) 0.06, Basophils # (Auto) 0.01 Last Resulted BMP 02/18/17 07:15 Medication Reconciliation New Medications: Levalbuterol Tartrate (Levalbuterol Tartrate Hfa) 45 Mcg/Act Aer 1 PUFF INH Q6, #1 INHALER Levofloxacin (Levaquin) 750 Mg Tab 750 MG PO DAILY for 5 Days, #5 TAB Continued Medications: Albuterol (Ventolin) 4 Mg Tab 4 MG PO, TAB Alprostadil (Vasodilator) (Edex) 20 Mcg Kit 20 MCG INJ UD Ascorbic Acid (Vitamin C) 500 Mg Tab 500 MG PO DAILY Aspirin (Aspirin Ec) 81 Mg Tab 81 MG PO DAILY Atorvastatin (Atorvastatin Calcium) 20 Mg Tab 20 MG PO QPM Budesonide/Formoterol Fumarate (Symbicort 160/4.5 Inhaler) 120 Puffs/ Aero 2 PUFFS INH BID RINSE MOUTH AFTER USE. Insulin Aspart (Novolog Penfill) 100 Unit/Ml Inj 15 UNITS SQ AC Insulin Glargine (Lantus Solostar) 100 Unit/Ml Inj 35 UNITS SC QPM, PEN Levothyroxine Sodium (Levothyroxine Sodium) 112 Mcg Tab 112 MCG PO DAILY Lorazepam (Lorazepam) 0.5 Mg Tab 0.5 MG PO HS PRN for Sleep Metoprolol Succinate (Metoprolol Succinate ER) 25 Mg Tabcr 25 MG PO BID Multivitamin (Multivitamin) Tab 1 TAB PO DAILY Omeprazole (Prilosec) 20 Mg Cap 20 MG PO DAILY Venlafaxine Hcl (Effexor Extended Rel) 75 Mg Capcr 75 MG PO DAILY Discharge Exam Physical Exam: General Appearance: no apparent distress Eyes: EOMI ENT: hearing grossly normal Neck: trachea midline Respiratory/Chest: no respiratory distress, no accessory muscle use, + rales (base L) Extremities: normal inspection 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 fortunately improved - stable for home on levaquin, xopenex HFA (xopenex due to having a bad reaction (shaky, sweaty) to albuterol) outaptient follow up next week - COPD: no signs of exacerbation, no wheezing on exam, will continue Symbicort, use Levalbuterol PRN - DM: home on home regimen - Hyperlipidemia: statin - Depression: Effexor - DVT prophylaxis: Lovenox stable for home, PCP next week Total Time Spent: Less than 30 minutes This includes examination of the patient, discharge planning, medication reconciliation, and communication with other providers. Discharge Instructions Please refer to the electronic Patient Visit Report (Discharge Instructions) for additional information. Additional Copies To Maribell Worrell C.R.N.P; Amauri Velez M.D.
[2017-02-18] MEDS ORDERED: INSULIN GLARGINE SOLOSTAR 100 UNITS/ML 3 ML PEN SC SCH (22:00)
== END 2017-02-18 13:15 | disposition home or self-care (01) | DRG 190 ==
LOC: ENRESERVTM → ENRESERVDT → EDBD 09:07 → C.EDA 09:09 → C.MS4W 10:49
PROVIDERS: ADMIT Internal Medicine; ATTEND Internal Medicine
DX: J44.0 Chronic obstructive pulmonary disease with (acute) lower respiratory infection (principal); J18.9 Pneumonia, unspecified organism; J44.9 Chronic obstructive pulmonary disease, unspecified; E11.9 Type 2 diabetes mellitus without complications; Z80.9 Family history of malignant neoplasm, unspecified; Z83.3 Family history of diabetes mellitus; Z82.49 Family history of ischemic heart disease and other diseases of the circulatory system; Z83.6 Family history of other diseases of the respiratory system; Z87.891 Personal history of nicotine dependence; Z79.82 Long term (current) use of aspirin; Z79.899 Other long term (current) drug therapy; E78.5 Hyperlipidemia, unspecified; F32.9 Major depressive disorder, single episode, unspecified

== ENCOUNTER → 2017-03-07 | Outpatient (CLI) | payer BC, OTHER ==
[~2017-03-07] MED LIST changes: +ALBU4TAB10 PO; -ALBUAER2 INH; +ATOR-24 PO; +BUSP1TAB46 PO; +DICY1TAB25 PO; +INSDGIPEN SC; +INSU1INJ2 SQ; -INSU50IN3 SC; +LEVA45AE INH; +LEVO100T PO; +LPT20 PO; +MRLP17 PO; +PANT1TAB48 PO; +PANT40TA PO; +PLAVIX75 PO; +PLV75 PO; +PRD20 PO; +VENL150C56 PO; +VNTHFA/IN INH
[2017-03-07 17:42] LABS: BASO % 0.9 %; BASO ABS # 0.06 K/uL (0-0.2); COMPLETE YES; EOS % 9.6 %; HEMATOCRIT 44.9 % (42-52); IG% 0.2 %; LYMPH % 17.2 %; LYMPH ABS # 1.12 K/uL (1.2-3.4); MEAN CELL VOLUME 84.1 fL (80-100); MEAN CORPUSCULAR HEMOGLOBIN 26.8 pg (25-34); MEAN CORPUSCULAR HGB CONC 31.8 g/dl (32-36); MEAN PLATELET VOLUME 9.5 fL (7.4-10.4); MONO % 9.2 %; NEUT % 62.9 %; PLATELET COUNT 363 K/uL (130-400); RED BLOOD COUNT 5.34 M/uL (4.7-6.1); WHITE BLOOD COUNT 6.53 K/uL (4.8-10.8)
[2017-03-07 18:04] LABS: ESTIMATED AVERAGE GLUCOSE 266 mg/dl; HA1C FLAG Normal (Normal)
[2017-03-07 18:19] LABS: BLOOD UREA NITROGEN 20 mg/dl (7-18); BUN/CREATININE RATIO 15.6 (10-20); CARBON DIOXIDE 29 mmol/L (21-32); CHLORIDE 101 mmol/L (98-107); GLUCOSE 399 mg/dl (70-99); POTASSIUM 4.3 mmol/L (3.5-5.1); SODIUM 136 mmol/L (136-145)
[2017-03-07 18:40] LABS: BETA-HYDROXYBUTYRATE 1.25 mg/dL (0.2-2.81)
== END | disposition home or self-care (01) ==
LOC: C.LABPVFM 13:47
PROVIDERS: ATTEND Family Medicine
DX: A31.0 Pulmonary mycobacterial infection (principal); E11.49 Type 2 diabetes mellitus with other diabetic neurological complication

== ENCOUNTER 2017-04-11 09:57 | Inpatient (IN) | payer BC, OTHER ==
[~2017-04-11] VITALS: Ht 182.9 cm; Wt 70.6 kg
[~2017-04-11 09:57] MED LIST changes: -ATOR-24 PO; -BUSP1TAB46 PO; -DICY1TAB25 PO; -LEVO100T PO; -LPT20 PO; -MRLP17 PO; -PANT1TAB48 PO; -PANT40TA PO; -PLAVIX75 PO; -PLV75 PO; -PRD20 PO; -VENL150C56 PO; -VNTHFA/IN INH
[2017-04-11] MEDS ORDERED: SODIUM CHLORIDE 0.9% 1000ML 1,000 ML IV SCH (10:10)
[2017-04-11] MEDS ORDERED: SODIUM CHLORIDE 0.9% 500ML 500 ML IV STA (10:10)
[2017-04-11] MEDS ORDERED: SODIUM CHLORIDE 0.9% 1000ML 1,000 ML IV STA (10:14)
[2017-04-11 10:27] LABS: BASO % 0.4 %; BASO ABS # 0.03 K/uL (0-0.2); COMPLETE YES; HEMATOCRIT 39.6 % (42-52); IG% 0.1 %; LYMPH % 20.2 %; LYMPH ABS # 1.49 K/uL (1.2-3.4); MEAN CELL VOLUME 83.5 fL (80-100); MEAN CORPUSCULAR HEMOGLOBIN 28.1 pg (25-34); MEAN CORPUSCULAR HGB CONC 33.6 g/dl (32-36); MEAN PLATELET VOLUME 9.1 fL (7.4-10.4); MONO % 8.7 %; NEUT % 67.6 %; PLATELET COUNT 237 K/uL (130-400); RED BLOOD COUNT 4.74 M/uL (4.7-6.1); WHITE BLOOD COUNT 7.37 K/uL (4.8-10.8)
[2017-04-11 10:37] LABS: PROTHROMBIN TIME (PATIENT) 10.6 SECONDS (9.0-12.0)
--- NOTE | 2017-04-11 10:38 | DIAGNOSTIC IMAGING REPORT ---
CHEST ONE VIEW PORTABLE CLINICAL HISTORY: Stroke mental status change COMPARISON STUDY: 02/17/2017 FINDINGS: The bones soft tissues and hemidiaphragms are normal. The cardiomediastinal silhouette is normal. The lungs are clear. The pulmonary vasculature is normal. IMPRESSION: Negative chest. Electronically signed by: Kwesi Powell M.D. 04/11/2017 10:36 AM Dictated Date/Time: 04/11/2017 10:36 AM
[2017-04-11] MEDS ORDERED: LEVO100T PO (10:40)
[2017-04-11] MEDS ORDERED: DICY1TAB25 PO (10:40)
[2017-04-11] MEDS ORDERED: BUSP1TAB46 PO (10:40)
[2017-04-11] MEDS ORDERED: VENL150C56 PO (10:40)
[2017-04-11] MEDS ORDERED: VNTHFA/IN INH (10:40)
[2017-04-11] MEDS ORDERED: MRLP17 PO (10:40)
[2017-04-11 10:48] LABS: BLOOD UREA NITROGEN 16 mg/dl (7-18); BUN/CREATININE RATIO 14.5 (10-20); CARBON DIOXIDE 28 mmol/L (21-32); CHLORIDE 102 mmol/L (98-107); CKMB/CK RATIO 0.9 (0-3.0); GLUCOSE 360 mg/dl (70-99); POTASSIUM 4.8 mmol/L (3.5-5.1); SODIUM 138 mmol/L (136-145)
[2017-04-11] MEDS ORDERED: NovoLIN-R INSULIN PER UNIT CHARGE IV STA (10:51)
[2017-04-11 10:59] LABS: URINE APPEARANCE CLEAR (CLEAR); URINE BILIRUBIN NEG (NEG); URINE COLOR YELLOW; URINE NITRITE NEG (NEG); URINE PH 5.5 (4.5-7.5); URINE SPECIFIC GRAVITY 1.032 (1.000-1.030); UROBILINOGEN NEG (NEG); ZZUR CULT IF INDIC CLEAN CATCH NO
[2017-04-11 10:59] LABS: BETA-HYDROXYBUTYRATE 1.11 mg/dL (0.2-2.81)
[2017-04-11 11:02] LABS: MANUAL MICROSCOPIC REQUIRED? NO; REVIEW REQ? NO
[2017-04-11 11:03] LABS: ESTIMATED AVERAGE GLUCOSE 255 mg/dl; HA1C FLAG Normal (Normal)
--- NOTE | 2017-04-11 11:08 | DIAGNOSTIC IMAGING REPORT ---
HEAD CT NONCONTRAST CT DOSE: 580.48 mGy.cm HISTORY: Weakness. Stroke TECHNIQUE: Multiaxial CT images of the head were performed without the use of intravenous contrast. Automated exposure control was utilized for this study. Comparison: Head CT 05/24/2016. Findings: The paranasal sinuses and mastoid air cells are clear. The calvarium and skull base are intact. There is no mass, hematoma, midline shift, acute infarct. White matter hypodensity is nonspecific but suggestive of microvascular ischemic change. The ventricles and sulci demonstrate mild age-related involutional changes. Impression: No significant change compared to the prior study. No acute intracranial abnormality. Electronically signed by: Jeet Pacheco M.D. 04/11/2017 11:07 AM Dictated Date/Time: 04/11/2017 11:01 AM
--- NOTE | 2017-04-11 11:32 | EMERGENCY ROOM VISIT NOTE ---
History Report prepared by Jody: Anjelica Frank Under the Supervision of: Dr. Pierce Cook M.D. First contact with patient: 10:00 History of Present Illness The patient is a 76 year old male who presents to the Emergency Room for further evaluation of constant stroke-like symptoms that were first noticed 1-2 days ago but his . The patient came to the ED via ambulance from [facility]. EMS reports that the patient's took him to [facility] to be evaluated for slurred speech and difficulty ambulating. They evaluated the patient then sent him into the ED for further evaluation. The patient denies any lightheadedness or dizziness with walking. He also denies feeling off balance when he ambulates. He does not have any complaints with the exception of being thirsty. The patient takes a baby aspirin daily, but denies being on any other blood thinners. Nursing staff report that the patient's blood sugar has been in the 300s. The patient states that he takes insulin. Source of History: patient, EMS Onset: 1-2 days ago Position: other (global) Quality: other (stroke-like symptoms) Timing: constant Note: difficulty ambulating, slurred speech, thirsty, no lightheadedness or dizziness with ambulating, no feeling of being off balance when ambulating Review of Systems See HPI for pertinent positives & negatives. A total of 10 systems reviewed and were otherwise negative. Past Medical & Surgical Medical Problems: (1) Asthma (2) Bilateral pneumonia (3) Bronchitis (4) COPD exacerbation (5) Diabetes (6) Dyspnea (7) Pneumonia (8) Stroke-like symptoms Surgical Problems: (1) H/O lumbar discectomy Family History Cancer Diabetes mellitus Heart disease Hypertension Lung disease Social History Smoking Status: Former Smoker Alcohol Use: none Marital Status: Housing Status: lives with family Occupation Status: unemployed Current/Historical Medications Scheduled Albuterol Hfa (Ventolin Hfa), 2-4 PUFFS INH Q6H Alprostadil (Vasodilator) (Edex), 20 MCG INJ UD Ascorbic Acid (Vitamin C), 500 MG PO DAILY Aspirin (Aspirin Ec), 81 MG PO DAILY Atorvastatin (Atorvastatin Calcium), 20 MG PO QPM Budesonide/Formoterol Fumarate (Symbicort 160/4.5 Inhaler), 2 PUFFS INH BID Dicyclomine HCl (Dicyclomine HCl), 20 MG PO BID Insulin Aspart (Novolog Penfill), UNITS SQ UD Insulin Glargine (Lantus Solostar), 35 UNITS SC QPM Levalbuterol Tartrate (Levalbuterol Tartrate Hfa), 1 PUFF INH Q6 Levothyroxine Sodium (Synthroid), 100 MCG PO DAILY Metoprolol Succinate (Metoprolol Succinate ER), 25 MG PO BID Multivitamin (Multivitamin), 1 TAB PO DAILY Omeprazole (Prilosec), 20 MG PO DAILY Polyethylene (Miralax), 17 GM PO DAILY Venlafaxine Hcl (Effexor Extended Rel), 150 MG PO DAILY Scheduled PRN Buspirone Hcl (Buspirone Hcl), 7.5 MG PO TID PRN for Anxiety Allergies Coded Allergies: No Known Allergies (Verified , 04/11/17) Physical Exam Vital Signs Date Time Temp Pulse Resp B/P (MAP) Pulse Ox O2 Delivery O2 Flow Rate FiO2 04/11/17 12:32 84 20 04/11/17 12:31 154/86 04/11/17 12:15 85 20 147/82 98 Room Air 04/11/17 12:02 84 21 100 04/11/17 12:01 147/82 04/11/17 11:45 85 20 146/74 99 Room Air 04/11/17 11:32 84 17 100 04/11/17 11:27 83 18 100 04/11/17 11:14 76 18 125/72 98 Room Air 04/11/17 11:08 125/72 04/11/17 10:45 84 20 140/82 97 Room Air 04/11/17 10:31 140/82 04/11/17 10:27 82 15 98 04/11/17 10:23 36.9 85 16 147/83 98 Room Air 04/11/17 10:20 98 Room Air 04/11/17 10:10 147/83 04/11/17 10:07 88 04/11/17 10:04 147/83 Physical Exam GENERAL: Patient is a healthy-appearing well-nourished male HEAD: Normocephalic atraumatic EYES: Ocular movements intact pupils equal and react to light OROPHARYNX mucous membranes are moist no exudates present no erythema or edema present NECK: Supple no nuchal rigidity CHEST: Good equal expansion LUNGS: Clear and equal to auscultation CARDIAC: Normal S1 and S2 ABDOMEN: Soft nontender no guarding BACK: No CVA tenderness EXTREMITIES: No pain upon palpation normal muscle strength in all groups no clubbing cyanosis or edema NEURO: Patient is following commands and answering questions appropriately. Alert and oriented x3 Cranial Nerves 2-12 grossly intact. Slight slurring of speech. Medical Decision & Procedures ER Provider Diagnostic Interpretation: Radiology results as stated below per my review and radiologist interpretation: CHEST ONE VIEW PORTABLE FINDINGS: The bones soft tissues and hemidiaphragms are normal. The cardiomediastinal silhouette is normal. The lungs are clear. The pulmonary vasculature is normal. IMPRESSION: Negative chest. Electronically signed by: Kwesi Powell M.D. 04/11/2017 10:36 AM Dictated Date/Time: 04/11/2017 10:[address] NONCONTRAST Findings: The paranasal sinuses and mastoid air cells are clear. The calvarium and skull base are intact. There is no mass, hematoma, midline shift, acute infarct. White matter hypodensity is nonspecific but suggestive of microvascular ischemic change. The ventricles and sulci demonstrate mild age-related involutional changes. Impression: No significant change compared to the prior study. No acute intracranial abnormality. Electronically signed by: Jeet Pacheco M.D. 04/11/2017 11:07 AM Dictated Date/Time: 04/11/2017 11:01 AM Laboratory Results Test 04/11/17 10:05 04/11/17 10:30 Prothrombin Time 10.6 SECONDS (9.0-12.0) Prothromb Time International Ratio 1.0 (0.9-1.1) Activated Partial Thromboplast Time 26.8 SECONDS (21.0-31.0) Partial Thromboplastin Ratio 1.0 Estimated Average Glucose 255 mg/dl Hemoglobin A1c 10.5 % (4.5-5.6) Total Creatine Kinase 355 U/L (39-308) Beta-Hydroxybutyric Acid 1.11 mg/dL (0.2-2.81) Lyme Disease IgG Antibody NEG (NEG) Lyme Disease IgM Antibody NEG (NEG) Urine Color YELLOW Urine Appearance CLEAR (CLEAR) Urine pH 5.5 (4.5-7.5) Urine Specific [place] 1.032 (1.000-1.030) Urine Protein NEG (NEG) Urine Glucose (UA) 3+ (NEG) Urine Ketones NEG (NEG) Urine Occult Blood 3+ (NEG) Urine Nitrite NEG (NEG) Urine Bilirubin NEG (NEG) Urine Urobilinogen NEG (NEG) Urine Leukocyte Esterase NEG (NEG) Urine WBC (Auto) 1-5 /hpf (0-5) Urine RBC (Auto) >30 /hpf (0-4) Urine Hyaline Casts (Auto) 0 /lpf (0-5) Urine Epithelial Cells (Auto) 5-10 /lpf (0-5) Urine Bacteria (Auto) NEG (NEG) Labs reviewed by ED physician. Medications Administered Medications (Trade) Dose Ordered Sig/Rose Mary Route Start Time Stop Time Status Last Admin Dose Admin Sodium Chloride 1,000 ml @ 50 mls/hr Q20H IV 04/11/17 10:10 04/11/17 14:08 DC 04/11/17 11:41 50 MLS/HR Sodium Chloride 500 ml @ 999 mls/hr Q31M STAT IV 04/11/17 10:10 04/11/17 10:40 DC 04/11/17 10:39 999 MLS/HR Insulin Human Regular (novoLIN-R U-100 PER UNIT) 10 units NOW STAT IV 04/11/17 10:51 04/11/17 10:53 DC 04/11/17 11:20 10 UNITS Aspirin (Aspirin Chew) 360 mg NOW STAT PO 04/11/17 11:51 04/11/17 11:53 DC 04/11/17 12:17 243 MG Ondansetron HCl (Zofran Inj) 4 mg Q6H PRN IV 04/11/17 12:30 05/11/17 12:29 04/12/17 01:46 4 MG Buspirone HCl (Buspar Tab) 7.5 mg TID PRN PO 04/11/17 12:30 05/11/17 12:29 04/12/17 00:56 10 MG Sodium Chloride 1,000 ml @ 100 mls/hr Q10H IV 04/11/17 12:30 05/11/17 12:29 04/12/17 07:46 100 MLS/HR ECG Indication: weakness Rate (beats per minute): 77 Rhythm: normal sinus Findings: no acute ischemic change, no ectopy ED Course 1003: Past medical records reviewed. The patient was evaluated in room A2. A complete history and physical examination was performed. 1010: Ordered Sodium Chloride 500 ml @ 999 mls/hr IV, Sodium Chloride 1000 ml @ 50 mls/hr IV 1014: Ordered Sodium Chloride 1000 ml @ 999 mls/hr IV 1051: Ordered Insulin Human [id number] units IV 1144: Upon reexamination the patient is resting comfortably. I discussed results and treatment plan with the patient. He verbalizes agreement and understanding. The patient will be evaluated for further management. 1151: Ordered Aspirin 360 mg PO 1152: I discussed the patient's case with Dr. Kim HARVEY, he has agreed to evaluate the patient for further management and care. Medical Decision Differential diagnosis: Etiologies such as metabolic, infection, hypo/hyperglycemia, electrolyte abnormalities, cardiac sources, intracerebral event, toxicologic, neurologic, as well as others were entertained. Medication Reconciliation: I attest that I have personally reviewed the patient' s current medication list Blood Pressure Screening: Patient was found to have an elevated blood pressure and was referred to their primary care doctor for recheck and further treatment This is a 76-year-old male who presents emergency department after being sent in by his primary care physician. The patient is complaining of slurred speech along with a facial droop. Due to the nature of the patient's complaints stroke workup was initiated. The patient's symptoms have been ongoing for longer than 3 hours. CAT scan of the head does not reveal any acute process. I do believe that the patient should be admitted for further stroke rule out. I did discuss the case with the hospitalist service who agreed to admit the patient. Patient was in agreement with the treatment plan. Consults Time Called: 1146 Consulting Physician: Dr. Kim HARVEY Returned Call: 1152 I discussed the patient's case with Dr. Kim HARVEY, he has agreed to evaluate the patient for further management and care. Impression Primary Impression: TIA (transient ischemic attack) Scribe Attestation The scribe's documentation has been prepared under my direction and personally reviewed by me in its entirety. I confirm that the note above accurately reflects all work, treatment, procedures, and medical decision making performed by me. Departure Information Dispostion Being Evaluated By Hospitalist Referrals Maribell Worrell, C.R.N.P (PCP) Problem Qualifiers Primary Impression: TIA (transient ischemic attack) Transient cerebral ischemia type: unspecified Qualified Codes: G45.9 - Transient cerebral ischemic attack, unspecified
[2017-04-11 11:33] LABS: LYME DISEASE AB IGG NEG (NEG)
[2017-04-11 11:35] LABS: LYME DISEASE AB IGM NEG (NEG)
[2017-04-11] MEDS ORDERED: ASPIRIN 81 MG CHEW PO STA (11:51)
[2017-04-11] MEDS ORDERED: ALUMINUM/MAGNESIUM/SIMETH (MAALOX MAX) 30 ML UDC PO PRN (12:30)
[2017-04-11] MEDS ORDERED: ONDANSETRON INJ 2 MG/ML 2 ML VIAL IV PRN (12:30)
[2017-04-11] MEDS ORDERED: PHARMACIST DISCHARGE MED REC CONSULT PRN (12:30)
[2017-04-11] MEDS ORDERED: ACETAMINOPHEN 325 MG TAB PO PRN (12:30)
[2017-04-11] MEDS ORDERED: POLYETHYLENE (MIRALAX) 17 GM PACK PO PRN (12:30)
[2017-04-11] MEDS ORDERED: MAGNESIUM HYDROXIDE SUSP 30 ML UDC PO PRN (12:30)
[2017-04-11] MEDS ORDERED: ALPROSTADIL 20 MCG INJ SCH (12:30)
[2017-04-11] MEDS ORDERED: ALBUTEROL HFA 8 GM INHALER INH PRN (12:30)
[2017-04-11] MEDS ORDERED: NITROGLYCERIN 0.4 MG SL PER TAB CHARGE SL PRN (12:30)
--- NOTE | 2017-04-11 12:58 | History and Physical ---
History & Physical Date & Time of Service: Apr 11, 2017 at 12:38 Chief Complaint: Primary Care Physician: Maribell Worrell C.R.N.P History of Present Illness Source: patient, family, clinic records, hospital records Patient is a pleasant 76 y/o male, with PMHx of COPD, asthma, T2DM, hyperlipidemia, depression, hypothyroidism, and GERD, who presented to the ED because of stroke-like symptoms over the past 24 hours. The patient's had a PCP appointment today. During that appointment, the PCP noticed the patient was walking abnormally and instructed patient to come to the ED. According to family at bedside, they noticed the patient had a left foot drop during mosque last evening; he almost tripped over his foot. They also noted the patient has been slurring his speech. Family denies any confusion. Patient denies any cardiac history. Denies history of PE/DVT, or TIA/stroke. Patient denies any fever, chills, sweats, lightheadedness, dizziness, vision changes, CP, palpitations, edema, SOB, wheezing, cough, abdominal pain, nausea, vomiting, diarrhea, urinary symptoms, melena, numbness/tingling, muscle/joint pain, anxiety/depression, active bleeding, or new skin discoloration/changes. When patient arrived to ED, his BSG level was 360- he was treated with 10 u of Novolin. At admission, BSG was 249. According to the patient, his sugars have been running in the 200s over the last week or so. Past Medical/Surgical History Medical Problems: 1. COPD 2. Asthma 3. T2DM 4. Hyperlipidemia 5. Depression 6. GERD 7. Hypothyroidism Surgical Problems: 1. h/o lumbar discectomy Family History Cancer Diabetes mellitus Heart disease Hypertension Lung disease Social History Smoking Status: Former Smoker Marital Status: Housing status: lives with family Occupational Status: unemployed Immunizations History of Influenza Vaccine: Yes Influenza Vaccine Date: Aug 14, 2009 History of Tetanus Vaccine?: Yes Tetanus Immunization Date: March 28, 2005 History of Pneumococcal: Yes Pneumococcal Date: Aug 28, 2009 History of Hepatitis B Vaccine: No Multi-Drug Resistant Organisms History of MDRO: No Allergies Coded Allergies: No Known Allergies (Verified , 04/11/17) Home Medications Scheduled Albuterol Hfa (Ventolin Hfa), 2-4 PUFFS INH Q6H Alprostadil (Vasodilator) (Edex), 20 MCG INJ UD Ascorbic Acid (Vitamin C), 500 MG PO DAILY Aspirin (Aspirin Ec), 81 MG PO DAILY Atorvastatin (Atorvastatin Calcium), 20 MG PO QPM Budesonide/Formoterol Fumarate (Symbicort 160/4.5 Inhaler), 2 PUFFS INH BID Dicyclomine HCl (Dicyclomine HCl), 20 MG PO BID Insulin Aspart (Novolog Penfill), UNITS SQ UD Insulin Glargine (Lantus Solostar), 35 UNITS SC QPM Levalbuterol Tartrate (Levalbuterol Tartrate Hfa), 1 PUFF INH Q6 Levothyroxine Sodium (Synthroid), 100 MCG PO DAILY Metoprolol Succinate (Metoprolol Succinate ER), 25 MG PO BID Multivitamin (Multivitamin), 1 TAB PO DAILY Omeprazole (Prilosec), 20 MG PO DAILY Polyethylene (Miralax), 17 GM PO DAILY Venlafaxine Hcl (Effexor Extended Rel), 150 MG PO DAILY Scheduled PRN Buspirone Hcl (Buspirone Hcl), 7.5 MG PO TID PRN for Anxiety Physical Exam Vital Signs Date Time Temp Pulse Resp B/P (MAP) Pulse Ox O2 Delivery O2 Flow Rate FiO2 04/11/17 12:15 85 20 147/82 98 Room Air 04/11/17 11:45 85 20 146/74 99 Room Air 04/11/17 11:27 83 18 100 04/11/17 11:14 76 18 125/72 98 Room Air 04/11/17 11:08 125/72 04/11/17 10:45 84 20 140/82 97 Room Air 04/11/17 10:31 140/82 04/11/17 10:27 82 15 98 04/11/17 10:23 36.9 85 16 147/83 98 Room Air 04/11/17 10:20 98 Room Air 04/11/17 10:10 147/83 04/11/17 10:07 88 04/11/17 10:04 147/83 General Appearance: no apparent distress Head: normocephalic, atraumatic Eyes: normal inspection, PERRL ENT: hearing grossly normal Neck: supple Respiratory/Chest: lungs clear, no respiratory distress, no accessory muscle use Cardiovascular: regular rate, rhythm, normal peripheral pulses Abdomen/GI: normal bowel sounds, non tender, soft Back: normal inspection Extremities/Musculoskelatal: no calf tenderness, no pedal edema Neurologic/Psych: no motor/sensory deficits, alert, normal mood/affect, oriented x 3 Skin: normal color, warm/dry, no rash Diagnostics Laboratory Results Results Past 24 Hours Test 04/11/17 10:05 04/11/17 10:26 04/11/17 10:30 Range/Units White Blood Count 7.37 4.8-10.8 K/uL Red Blood Count 4.74 4.7-6.1 M/uL Hemoglobin 13.3 14.0-18.0 g/dL Hematocrit 39.6 42-52 % Mean Corpuscular Volume 83.5 80-100 fL Mean Corpuscular Hemoglobin 28.1 25-34 pg Mean Corpuscular Hemoglobin Concent 33.6 32-36 g/dl Platelet Count 237 130-400 K/uL Mean Platelet Volume 9.1 7.4-10.4 fL Neutrophils (%) (Auto) 67.6 % Lymphocytes (%) (Auto) 20.2 % Monocytes (%) (Auto) 8.7 % Eosinophils (%) (Auto) 3.0 % Basophils (%) (Auto) 0.4 % Neutrophils # (Auto) 4.98 1.4-6.5 K/uL Lymphocytes # (Auto) 1.49 1.2-3.4 K/uL Monocytes # (Auto) 0.64 0.11-0.59 K/uL Eosinophils # (Auto) 0.22 0-0.5 K/uL Basophils # (Auto) 0.03 0-0.2 K/uL RDW Standard Deviation 39.6 36.4-46.3 fL RDW Coefficient of Variation 13.1 11.5-14.5 % Immature Granulocyte % (Auto) 0.1 % Immature Granulocyte # (Auto) 0.01 0.00-0.02 K/uL Prothrombin Time 10.6 9.0-12.0 SECONDS Prothromb Time International Ratio 1.0 0.9-1.1 Activated Partial Thromboplast Time 26.8 21.0-31.0 SECONDS Partial Thromboplastin Ratio 1.0 Sodium Level 138 136-145 mmol/L Potassium Level 4.8 3.5-5.1 mmol/L Chloride Level 102 98-107 mmol/L Carbon Dioxide Level 28 21-32 mmol/L Anion Gap 8.0 3-11 mmol/L Blood Urea Nitrogen 16 7-18 mg/dl Creatinine 1.10 0.60-1.40 mg/dl Est Creatinine Clear Calc Drug Dose 58.8 ml/min Estimated GFR () 75.7 Estimated GFR (Non- 65.3 BUN/Creatinine Ratio 14.5 10-20 Random Glucose 360 70-99 mg/dl Estimated Average Glucose 255 mg/dl Hemoglobin A1c 10.5 4.5-5.6 % Calcium Level 9.0 8.5-10.1 mg/dl Total Creatine Kinase 355 39-308 U/L Creatine Kinase MB 3.2 0.5-3.6 ng/ml Creatine Kinase MB Ratio 0.9 0-3.0 Troponin I < 0.015 0-0.045 ng/ml Beta-Hydroxybutyric Acid 1.11 0.2-2.81 mg/dL Lyme Disease IgG Antibody NEG NEG Lyme Disease IgM Antibody NEG NEG Bedside Glucose 321 70-99 mg/dl Urine Color YELLOW Urine Appearance CLEAR CLEAR Urine pH 5.5 4.5-7.5 Urine Specific [place] 1.032 1.000-1.030 Urine Protein NEG NEG Urine Glucose (UA) 3+ NEG Urine Ketones NEG NEG Urine Occult Blood 3+ NEG Urine Nitrite NEG NEG Urine Bilirubin NEG NEG Urine Urobilinogen NEG NEG Urine Leukocyte Esterase NEG NEG Urine WBC (Auto) 1-5 0-5 /hpf Urine RBC (Auto) >30 0-4 /hpf Urine Hyaline Casts (Auto) 0 0-5 /lpf Urine Epithelial Cells (Auto) 5-10 0-5 /lpf Urine Bacteria (Auto) NEG NEG Diagnostic Radiology HEAD CT NONCONTRAST CT DOSE: 580.48 mGy.cm HISTORY: Weakness. Stroke TECHNIQUE: Multiaxial CT images of the head were performed without the use of intravenous contrast. Automated exposure control was utilized for this study. Comparison: Head CT 05/24/2016. Findings: The paranasal sinuses and mastoid air cells are clear. The calvarium and skull base are intact. There is no mass, hematoma, midline shift, acute infarct. White matter hypodensity is nonspecific but suggestive of microvascular ischemic change. The ventricles and sulci demonstrate mild age-related involutional changes. Impression: No significant change compared to the prior study. No acute intracranial abnormality. Electronically signed by: Jeet Pacheco M.D. 04/11/2017 11:07 AM Dictated Date/Time: 04/11/2017 11:01 AM The status of this report is Signed. Draft = Not yet reviewed or approved by Radiologist. Signed = Reviewed and approved by Radiologist. CHEST ONE VIEW PORTABLE CLINICAL HISTORY: Stroke mental status change COMPARISON STUDY: 02/17/2017 FINDINGS: The bones soft tissues and hemidiaphragms are normal. The cardiomediastinal silhouette is normal. The lungs are clear. The pulmonary vasculature is normal. IMPRESSION: Negative chest. Electronically signed by: Kwesi Powell M.D. 04/11/2017 10:36 AM Dictated Date/Time: 04/11/2017 10:36 AM The status of this report is Signed. Draft = Not yet reviewed or approved by Radiologist. Signed = Reviewed and approved by Radiologist. EKG CARA EVRA ID:[id number] 11-APR-2017 10:14:48 [facility] Poor data quality, interpretation may be adversely affected Normal sinus rhythm Normal ECG When compared with ECG of 17-FEB-2017 09:34, Criteria for Septal infarct are no longer Present Confirmed by ANNETTA ARRIAGA ([id number]) on 04/11/2017 12:30:48 PM 25mm/s 10mm/mV 150Hz 8.0 SP2 12SL 241 MELIA: 9 Referred by: Referred Self Confirmed By: ANNETTA Villarreal. rate 77 BPM MT interval 162 ms QRS duration 82 ms QT/QTc 364/411 ms P-R-T axes 73 -16 61 1940 (76 yr) Male 70in Room:[facility] Loc:[address] Fireman:LENORE Marcus ind: Impression Assessment and Plan Patient is a pleasant 76 y/o male, with PMHx of COPD, asthma, T2DM, hyperlipidemia, depression, hypothyroidism, and GERD, who presented to the ED because of stroke-like symptoms over the past 24 hours. Stroke-like symptoms: - Admit to tele for cardiac monitoring - Trend cardiac enzymes- initial enzymes negative - IV NSS @ 100 ml/hr - Continue ASA 81 mg daily - Stroke protocol: --PT/OT and speech evaluation --Aspiration/fall precautions --Dysphagia screen, advance diet as tolerated --Routine neuro checks --Elevate HOB - CT of head- unremarkable for acute process - CXR- negative for acute process - UA reviewed - Lyme screen- negative - Check MRI brain combo, bilateral carotid US, and ECHO - Consulted neurology, appreciate recommendations T2DM w/ hyperglycemia, hA1C= 10.5%: - Continue Lantus 35 u HS - BSG ACHS w/ sliding insulin scale COPD/Asthma: Continue home inhalers Hyperlipidemia: - Continue Atorvastatin 20 mg QPM - Check lipid panel Hypothyroidism: - Continue Synthroid 100 mcg daily - TSH 0.631 on 01/14/17 Depression: Continue Effexor 150 mg daily GERD: Protonix 40 mg daily- resume Prilosec at discharge GI Prophylaxis: Maalox PRN, IV Zofran PRN, Colace and/or Milk of Mag PRN DVT prophylaxis: Heparin 5000 units SQ q12 hrs, [place] and SCDs Code Status: LEVEL V, DNR Dispo: From home, lives w/ - professor of social work consulted - PT/OT evaluations pending Level of Care Telemetry Resuscitation Status DO NOT RESUSCITATE VTE Prophylaxis VTE Risk Assessment Done? Y/N: Yes Risk Level: Moderate Given or contraindicated: Unfractionated heparin SQ, T.E.D. Stockings, SCD's
[2017-04-11] MEDS ORDERED: IV FLUIDS COMPLETED PRN (13:30)
--- NOTE | 2017-04-11 14:26 | DIAGNOSTIC IMAGING REPORT ---
ORBIT RADIOGRAPHS 3 VIEWS HISTORY: Pre-MRI pre-MRI screening. COMPARISON: None. FINDINGS: There are no radiopaque foreign bodies identified within the orbits. IMPRESSION: No radiopaque foreign bodies identified within the orbits. Electronically signed by: Kwesi Powell M.D. 04/11/2017 2:25 PM Dictated Date/Time: 04/11/2017 2:24 PM
[2017-04-11] MEDS ORDERED: GLUCOSE 10 TABS/TUBE PO PRN (14:30)
[2017-04-11] MEDS ORDERED: GLUCOSE 40% GEL 15 GM TUBE PO PRN (14:30)
[2017-04-11] MEDS ORDERED: GLUCAGON FOR INJ 1 MG VIAL SQ PRN (14:30)
[2017-04-11] MEDS ORDERED: DEXTROSE 50% 50 ML SYR IV PRN (14:30)
[2017-04-11 15:00] VITALS: BP 131/71; PULSE 87; TEMP 36.7; O2SAT 92; BMI 21.1
[2017-04-11] MEDS: SODIUM CHLORIDE 0.9% 1000ML 1,000 ML IV SCH (15:55)
--- NOTE | 2017-04-11 16:46 | ECHOCARDIOGRAM REPORT ---
*NOTICE TO RECEIVING CONSTITUTION PARTY AGENCY This information is strictly Confidential and protected under [place] law. [place] law prohibits you from making any further disclosure of this information unless further disclosure is expressly permitted by the written consent of the person to whom it pertains or is authorized by law. A general authorization for the release of medical or other information is not sufficient for this purpose. Hospital accepts no responsibility if the information is made available to any other person, INCLUDING THE PATIENT. Interpretation Summary * Name: CARA VERA Study Date: 04/11/2017 01:36 PM BP: 149/88 mmHg * Patient Location: [facility] HR: 86 * : 1940 (M/d/yyyy) Gender: Male Height: 72 in * Age: 76 yrs Ethnicity: CA Weight: 157 lb * Ordering Physician: Joana Biggs * Referring Physician: JAILYN * Performed By: Amy Gaspar * * Reason For Study: CEREBRAL ISCHEMIA/ EMBOLUS * BSA: 1.9 m2 * -- Conclusions -- * 1. Normal LV size. Mild concentric LVH. * 2. Normal LV systolic function. LVEF 60-65%. No regional wall motion abnormalities. * 3. Normal RV size and function. * 4. Grade I diastolic dysfunction. * 5. Mild aortic valve sclerosis without stenosis. * 6. Negative bubble study for interatrial shunt. * 7. Compared with prior study on 03/07/2015: No significant change. Procedure Details * A saline contrast injection was performed to assess for cardiac shunting. * The injection was performed through an intravenous line in the left arm. * The attending nurse who injected the saline contrast was ALICE BRAUN RN. * A total of 20 cc of agitated saline was given. Left Ventricle * The left ventricle is grossly normal size. * There is mild concentric left ventricular hypertrophy. * Ejection Fraction = 60-65%. * No regional wall motion abnormalities noted. Right Ventricle * The right ventricle is grossly normal size. * The right ventricular systolic function is normal as assessed by tricuspid annular plane systolic excursion (TAPSE) (normal >1.5 cm). Atria * The left atrial size is normal. * Right atrial size is normal. * Injection of contrast documented an interatrial shunt. Mitral Valve * The mitral valve leaflets appear thickened, but open well. * There is no mitral valve stenosis. * There is trace mitral regurgitation. Tricuspid Valve * The tricuspid valve is not well visualized, but is grossly normal. * There is no tricuspid stenosis. * There is trace tricuspid regurgitation. Aortic Valve * The aortic valve is trileaflet. * Aortic valve sclerosis mild, without significant aortic valvular stenosis. * No hemodynamically significant valvular aortic stenosis. * There is no significant aortic regurgitation. Pulmonic Valve * The pulmonary valve is inadequately visualized, but the Doppler data is adequate for interpretation. * Pulmonic stenosis is absent. * There is no significant pulmonary regurgitation. Great Vessels * The aortic root and proximal ascending aorta are normal sized. Pericardium/Pleural * There is no pericardial effusion. Great Vessels * Normal inferior vena cava size and collapsability with sniff indicates a normal right atrial pressure of 3 mmHg Left Ventricular Diastolic Function * Grade I diastolic dysfunction, (abnormal relaxation pattern). MMode 2D Measurements and Calculations IVSd 1.4 cm IVSs 1.4 cm LVIDd 4.0 cm LVIDs 3.0 cm LVPWd 1.2 cm LVPWs 1.3 cm IVS/LVPW 1.2 FS 25.8 % EDV(Teich) 69.5 ml ESV(Teich) 33.9 ml EF(Teich) 51.2 % EDV(cubed) 63.4 ml ESV(cubed) 25.9 ml EF(cubed) 59.1 % % IVS thick 3.0 % % LVPW thick 8.2 % LV mass(C)d 184.5 grams LV mass(C)dI 96.0 grams/m\S\2 LV mass(C)s 132.2 grams LV mass(C)sI 68.8 grams/m\S\2 CO(Teich) 3.0 l/min CI(Teich) 1.6 l/min/m\S\2 SV(Teich) 35.6 ml SI(Teich) 18.5 ml/m\S\2 CO(cubed) 3.1 l/min CI(cubed) 1.6 l/min/m\S\2 SV(cubed) 37.4 ml SI(cubed) 19.5 ml/m\S\2 ACS 1.8 cm asc Aorta Diam 3.3 cm LVOT diam 1.9 cm LVOT area 3.0 cm\S\2 LVAd ap4 29.8 cm\S\2 LVLd ap4 8.3 cm EDV(MOD-sp4) 88.5 ml LVAs ap4 18.8 cm\S\2 LVLs ap4 7.2 cm ESV(MOD-sp4) 41.5 ml EF(MOD-sp4) 53.1 % LVAd ap2 27.4 cm\S\2 LVLd ap2 8.2 cm EDV(MOD-sp2) 77.2 ml LVAs ap2 16.8 cm\S\2 LVLs ap2 6.8 cm ESV(MOD-sp2) 35.1 ml EF(MOD-sp2) 54.5 % CO(MOD-sp4) 3.9 l/min CI(MOD-sp4) 2.1 l/min/m\S\2 SV(MOD-sp4) 47.0 ml SI(MOD-sp4) 24.5 ml/m\S\2 CO(MOD-sp2) 3.5 l/min CI(MOD-sp2) 1.8 l/min/m\S\2 SV(MOD-sp2) 42.1 ml SI(MOD-sp2) 21.9 ml/m\S\2 Doppler Measurements and Calculations MV E max keegan 73.3 cm/sec MV A max keegan 89.8 cm/sec MV E/A 0.82 MV P1/2t max keegan 80.2 cm/sec MV P1/2t 94.2 msec MVA(P1/2t) 2.3 cm\S\2 MV dec slope 249.4 cm/sec\S\2 MV dec time 0.27 sec Ao V2 max 102.6 cm/sec Ao max PG 4.2 mmHg Ao max PG (full) 1.2 mmHg PRESLEY(V,A) 2.5 cm\S\2 PRESLEY(V,D) 2.5 cm\S\2 LV V1 max PG 3.0 mmHg LV V1 max 86.3 cm/sec PA V2 max 66.0 cm/sec PA max PG 1.7 mmHg
[2017-04-11] MEDS ORDERED: GADAVIST IV PRN (17:15)
--- NOTE | 2017-04-11 17:26 | DIAGNOSTIC IMAGING REPORT ---
MRI OF THE BRAIN WITHOUT AND WITH IV CONTRAST CLINICAL HISTORY: Stroke. COMPARISON STUDY: MRI of the brain December 29, [address] April 11, 2017. TECHNIQUE: Utilizing a 1.5 Nicky magnet and dedicated coil, multiplanar, multiecho imaging of the brain was performed pre and postcontrast administration. IV administration of 7 mL of Gadavist contrast was uneventful. FINDINGS: There is a 9 mm focus of restricted diffusion within the right cerebral peduncle shown on axial image 10 of 44. There is mild associated signal abnormality on the T2-weighted sequences. This represents an acute infarct. No additional foci of acute infarction are present. There are no intracranial masses or pathologic enhancement. Ventricular system is normal for age. Basilar cisterns are patent. There are no extra-axial collections. Flow-voids for the major intracranial vessels are present. Scattered white matter T2 hyperintense foci suggest small vessel disease. 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 Calvarial signal is maintained. Orbits are unremarkable. IMPRESSION: 1. 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 No mass effect or hemorrhagic conversion. 2. No intracranial masses or pathologic enhancement. 3. Moderate small vessel disease. Electronically signed by: Fam Pelayo M.D. 04/11/2017 5:25 PM Dictated Date/Time: 04/11/2017 5:17 PM
--- NOTE | 2017-04-11 17:36 | DIAGNOSTIC IMAGING REPORT ---
CAROTID ARTERY ULTRASOUND CLINICAL HISTORY: Stroke COMPARISON STUDY: Carotid ultrasound December 29, 2011. TECHNIQUE: Real-time, grayscale, and color Doppler sonography of the carotid and vertebral arteries was performed. Images were viewed in the transverse and longitudinal planes. FINDINGS: There is moderate atherosclerotic plaque. Velocity measurements are listed below. COMMON CAROTID PEAK SYSTOLIC VELOCITY (CM/S): RIGHT 101 LEFT 93 ICA PEAK SYSTOLIC VELOCITY (CM/S): RIGHT 66 LEFT 76 The systolic ratios between the internal to common carotid arteries were normal. Antegrade flow is seen in the vertebral arteries. The external carotid arteries are patent. Blood pressure in the right arm measured 139/74. Blood pressure in the left arm measured 121/59. IMPRESSION: No evidence of a hemodynamically significant stenosis. Electronically signed by: Fam Pelayo M.D. 04/11/2017 5:34 PM Dictated Date/Time: 04/11/2017 5:33 PM
[2017-04-11] MEDS: INSULIN ASPART 100 UNITS/ML 3 ML PEN SC SCH ×2 (17:49→21:10)
[2017-04-11] MEDS ORDERED: LEValbuterol HFA 15GM INHALER INH SCH (18:00)
[2017-04-11 19:57] VITALS: BP 129/64; PULSE 85; TEMP 36.6; O2SAT 95
[2017-04-11] MEDS ORDERED: ATORVASTATIN 20 MG TAB PO SCH (21:00)
[2017-04-11] MEDS: BUDESONIDE/FORMOTEROL FUMARATE 160/4.5 60 PUFFS/INHALER INH SCH (21:03)
[2017-04-11] MEDS: DICYCLOMINE HCL 20 MG TAB PO SCH (21:03)
[2017-04-11] MEDS: METOPROLOL SUCC 25MG EXT REL TAB PO SCH (21:04)
[2017-04-11] MEDS: HEPARIN SOD 5000 UNIT/0.5 ML CARP SQ SCH (21:11)
[2017-04-11 23:56] VITALS: BP 144/71; PULSE 80; TEMP 37; O2SAT 94
[2017-04-11 23:59] VITALS: O2SAT 94
[2017-04-12] VITALS (7 sets, daily range): BP systolic 127–138; BP diastolic 7–78; PULSE 76–87; TEMP 36.4–36.8; O2SAT 93–97; Ht 182.9 cm; Wt 70.6 kg
[2017-04-12] MEDS: SODIUM CHLORIDE 0.9% 1000ML 1,000 ML IV SCH ×2 (01:46→07:46)
[2017-04-12] MEDS ORDERED: LEVOTHYROXINE 100 MCG TAB PO SCH (06:00)
[2017-04-12 06:07] LABS: BASO % 0.9 %; BASO ABS # 0.06 K/uL (0-0.2); COMPLETE YES; EOS % 5.5 %; HEMATOCRIT 37.6 % (42-52); IG% 0.3 %; LYMPH % 24.4 %; LYMPH ABS # 1.64 K/uL (1.2-3.4); MEAN CELL VOLUME 82.8 fL (80-100); MEAN CORPUSCULAR HEMOGLOBIN 27.5 pg (25-34); MEAN CORPUSCULAR HGB CONC 33.2 g/dl (32-36); MONO % 13.2 %; NEUT % 55.7 %; PLATELET COUNT 226 K/uL (130-400); RED BLOOD COUNT 4.54 M/uL (4.7-6.1); WHITE BLOOD COUNT 6.72 K/uL (4.8-10.8)
[2017-04-12 06:47] LABS: BUN/CREATININE RATIO 13.1 (10-20); CALCIUM 8.2 mg/dl (8.5-10.1); CREATININE 0.95 mg/dl (0.60-1.40); POTASSIUM 4.5 mmol/L (3.5-5.1)
[2017-04-12] MEDS: BUDESONIDE/FORMOTEROL FUMARATE 160/4.5 60 PUFFS/INHALER INH SCH (07:40)
[2017-04-12] MEDS: METOPROLOL SUCC 25MG EXT REL TAB PO SCH (07:40)
[2017-04-12] MEDS: DICYCLOMINE HCL 20 MG TAB PO SCH (07:41)
[2017-04-12] MEDS: INSULIN ASPART 100 UNITS/ML 3 ML PEN SC SCH ×2 (07:42→11:58)
[2017-04-12] MEDS: HEPARIN SOD 5000 UNIT/0.5 ML CARP SQ SCH (07:43)
[2017-04-12] MEDS ORDERED: ASCORBIC ACID 500 MG TAB PO SCH (09:00)
[2017-04-12] MEDS ORDERED: POLYETHYLENE (MIRALAX) 17 GM PACK PO SCH (09:00)
[2017-04-12] MEDS ORDERED: PANTOprazole SOD 40 MG TAB PO SCH (09:00)
[2017-04-12] MEDS ORDERED: VENLAFAXINE HCL XR 150 MG CAPXR PO SCH (09:00)
[2017-04-12] MEDS ORDERED: MULTIVITAMIN TAB PO SCH (09:00)
[2017-04-12] MEDS ORDERED: ASPIRIN 81 MG ECTAB PO SCH (09:00)
--- NOTE | 2017-04-12 10:06 | Neurology Consultation ---
Neurology Consultation Date of Consultation: Apr 12, 2017. Attending Physician: Delta Alvarez MD, PhD Primary Care Physician: Maribell Worrell C.RNoelleNEzio Reason for Consultation: Stroke History of Present Illness Source: patient, hospital records The patient is a 76-year-old male with a chief complaint of left lower extremity weakness and slurred speech that were noticed yesterday. The patient indicates that his symptoms have been improving. Past medical history notable for diabetes mellitus and hyperlipidemia. A recently completed electrocardiogram reveals a normal sinus rhythm. A transthoracic echocardiogram is unremarkable. Past Medical/Surgical History Medical Problems: (1) TIA (transient ischemic attack) Status: Acute Family History Family history notable for diabetes and hypertension Social History Smoking Status: Never smoker Marital Status: Housing Status: lives with family Occupation Status: unemployed Allergies Coded Allergies: No Known Allergies (Verified , 04/11/17) Current Inpatient Medications Current Inpatient Medications Medications (Trade) Dose Ordered Sig/Rose Mary Route Start Time Stop Time Status Last Admin Dose Admin Heparin Sodium (Porcine) (Heparin Sq 5000 Unit/0.5ml) 5,000 unit Q12 SQ 04/11/17 21:00 05/11/17 20:59 04/12/17 07:43 5,000 UNIT Acetaminophen (Tylenol Tab) 650 mg Q4H PRN PO 04/11/17 12:30 05/11/17 12:29 Al Hydrox/Mg Hydrox/Simethicone (Maalox Max Susp) 15 ml Q4H PRN PO 04/11/17 12:30 05/11/17 12:29 Magnesium Hydroxide (Milk Of Magnesia Susp) 30 ml Q12H PRN PO 04/11/17 12:30 05/11/17 12:29 Ondansetron HCl (Zofran Inj) 4 mg Q6H PRN IV 04/11/17 12:30 05/11/17 12:29 04/12/17 01:46 4 MG Nitroglycerin (Nitrostat Tab) 0.4 mg UD PRN SL 04/11/17 12:30 05/11/17 12:29 Polyethylene (Miralax Powder Packet) 17 gm DAILY PRN PO 04/11/17 12:30 05/11/17 12:29 Miscellaneous Information (Pharmacist Discharge Med Rec Consult) 1 ea UD PRN N/A 04/11/17 12:30 05/11/17 12:29 Albuterol (Ventolin Hfa Inhaler) 2 puffs Q6 PRN INH 04/11/17 12:30 05/11/17 12:29 Ascorbic Acid (Vitamin C Tab) 500 mg DAILY PO 04/12/17 09:00 05/12/17 08:59 04/12/17 07:40 500 MG Aspirin (Ecotrin Tab) 81 mg DAILY PO 04/12/17 09:00 05/12/17 08:59 04/12/17 07:40 81 MG Atorvastatin Calcium (Lipitor Tab) 20 mg QPM PO 04/11/17 21:00 05/11/17 20:59 04/11/17 21:04 20 MG Budesonide/ Formoterol Fumarate (Symbicort 160/ 4.5 Inh) 2 puffs BID INH 04/11/17 21:00 05/11/17 20:59 04/12/17 07:40 2 PUFFS Dicyclomine HCl (Bentyl Tab) 20 mg BID PO 04/11/17 21:00 05/11/17 20:59 04/12/17 07:41 20 MG Levothyroxine Sodium (Synthroid Tab) 100 mcg DAILYBB PO 04/12/17 06:00 05/12/17 06:59 04/12/17 06:20 100 MCG Metoprolol Succinate (Toprol Xl Tab) 25 mg BID PO 04/11/17 21:00 05/11/17 20:59 04/12/17 07:40 25 MG Multivitamins (Multivitamin Tab) 1 tab DAILY PO 04/12/17 09:00 05/12/17 08:59 04/12/17 07:41 1 TAB Polyethylene (Miralax Powder Packet) 17 gm DAILY PO 04/12/17 09:00 05/12/17 08:59 Venlafaxine HCl (effeXOR EXTENDED REL CAP) 150 mg DAILY PO 04/12/17 09:00 05/12/17 08:59 04/12/17 07:41 150 MG Buspirone HCl (Buspar Tab) 7.5 mg TID PRN PO 04/11/17 12:30 05/11/17 12:29 04/12/17 00:56 10 MG Pantoprazole Sodium (Protonix Tab) 40 mg QAM PO 04/12/17 09:00 05/12/17 08:59 04/12/17 07:41 40 MG Sodium Chloride 1,000 ml @ 100 mls/hr Q10H IV 04/11/17 12:30 05/11/17 12:29 04/12/17 07:46 100 MLS/HR Insulin Aspart (novoLOG ASPART) SLIDING SCALE G... ACHS SC 04/11/17 16:00 05/11/17 15:59 04/12/17 07:42 7 UNITS Miscellaneous (Iv Fluids Completed) 1 ea PRN PRN N/A 04/11/17 13:30 04/11/18 13:29 Glucose (Glucose 40% Gel) 15-30 GRAMS 15 GRAMS... UD PRN PO 04/11/17 14:30 05/11/17 14:29 Glucose (Glucose Chew Tab) 4-8 Tablets 4 Tabl... UD PRN PO 04/11/17 14:30 05/11/17 14:29 Dextrose (Dextrose 50% 50ML Syringe) 25-50ML OF 50% DW IV FOR... UD PRN IV 04/11/17 14:30 05/11/17 14:29 Glucagon (Glucagon Inj) 1 mg UD PRN SQ 04/11/17 14:30 05/11/17 14:29 Gadobutrol (Gadavist) 7 mmol UD PRN IV 04/11/17 17:15 04/15/17 17:14 Review of Systems The patient denies headache, fever, chills, vision changes, hearing changes, or vertigo. He is aware that his speech sounds slightly slurred. A full 10 point review of systems was obtained from this patient with pertinent positives and negatives described in the history of present illness and otherwise listed above. All remaining systems reviewed and are negative. Physical Exam Vital Signs (Past 24 Hrs): Date Time Temp Pulse Resp B/P (MAP) Pulse Ox O2 Delivery O2 Flow Rate FiO2 04/12/17 08:00 Room Air 04/12/17 07:06 36.6 87 20 136/73 (94) 93 Room Air 04/12/17 04:00 96 Room Air 04/12/17 03:49 36.8 82 20 138/66 (90) 94 Room Air 04/11/17 23:59 94 Room Air 04/11/17 23:56 37.0 80 20 144/71 (95) 94 Room Air 04/11/17 20:00 Room Air 04/11/17 19:57 36.6 85 18 129/64 (85) 95 Room Air 04/11/17 15:00 36.7 87 16 131/71 92 Room Air 04/11/17 14:01 86 149/88 97 04/11/17 13:59 135/80 04/11/17 13:32 87 15 04/11/17 13:31 129/81 04/11/17 13:02 84 18 96 04/11/17 13:01 134/77 04/11/17 12:53 86 04/11/17 12:32 84 20 04/11/17 12:31 154/86 04/11/17 12:15 85 20 147/82 98 Room Air 04/11/17 12:02 84 21 100 04/11/17 12:01 147/82 04/11/17 11:45 85 20 146/74 99 Room Air 04/11/17 11:32 84 17 100 04/11/17 11:27 83 18 100 04/11/17 11:14 76 18 125/72 98 Room Air 04/11/17 11:08 125/72 04/11/17 10:45 84 20 140/82 97 Room Air 04/11/17 10:31 140/82 04/11/17 10:27 82 15 98 04/11/17 10:23 36.9 85 16 147/83 98 Room Air 04/11/17 10:20 98 Room Air 04/11/17 10:10 147/83 04/11/17 10:07 88 04/11/17 10:04 147/83 The patient is a well-developed, well-nourished, elderly male, no acute distress. He is alert and oriented to person and place but not to the exact date. Recent memory mildly impaired. Attention normal. Concentration mildly impaired with difficulty spelling rolled backwards. Patient is able to name objects and repeat phrases although his speech is slightly dysarthric sounding. Patient exhibits an age-appropriate fund of knowledge and normal vocabulary. Visual boyd full to confrontation. Visual acuity normal. Pupils equal round reactive to light and accommodation. Eye movements normal. Facial sensation intact. There is normal facial symmetry and strength. Hearing intact. Tongue and palate move well and are midline. Shoulder shrug intact. There is diminished sensation to light touch and vibration following a length dependent pattern. Deep tendon reflexes are generally diminished for the upper and lower limbs. The right plantar response is downgoing, left plantar response equivocal. There is no dysmetria with finger to nose testing bilaterally. There is slight dysmetria with [id number] on the left. Heel to argueta for the right normal. Ophthalmoscopic examination reveals normal-appearing optic disks and posterior segments. No papilledema or hemorrhages. Carotid pulses normal bilaterally, no bruits. Gait appears a bit unbalanced, tendency to lean to the left. Station wide-based. Muscle strength testing reveals generally intact strength for the arms and legs bilaterally. Muscle tone normal throughout. No atrophy. No abnormal movements observed. Laboratory Results Past 24 Hours: 04/12/17 05:10 Red Blood Count 4.54, Mean Corpuscular Volume 82.8, Mean Corpuscular Hemoglobin 27.5, Mean Corpuscular Hemoglobin Concent 33.2, Mean Platelet Volume 9.0, Neutrophils (%) (Auto) 55.7, Lymphocytes (%) (Auto) 24.4, Monocytes (%) (Auto) 13.2, Eosinophils (%) (Auto) 5.5, Basophils (%) (Auto) 0.9, Neutrophils # (Auto ) 3.74, Lymphocytes # (Auto) 1.64, Monocytes # (Auto) 0.89, Eosinophils # (Auto ) 0.37, Basophils # (Auto) 0.06 04/12/17 05:10 Test 04/11/17 10:05 04/11/17 10:30 04/12/17 02:25 04/12/17 02:35 Prothrombin Time 10.6 SECONDS (9.0-12.0) Prothromb Time International Ratio 1.0 (0.9-1.1) Activated Partial Thromboplast Time 26.8 SECONDS (21.0-31.0) Partial Thromboplastin Ratio 1.0 Estimated Average Glucose 255 mg/dl Hemoglobin A1c 10.5 % (4.5-5.6) Total Creatine Kinase 355 U/L (39-308) Beta-Hydroxybutyric Acid 1.11 mg/dL (0.2-2.81) Lyme Disease IgG Antibody NEG (NEG) Lyme Disease IgM Antibody NEG (NEG) Urine Color YELLOW Urine Appearance CLEAR (CLEAR) Urine pH 5.5 (4.5-7.5) Urine Specific [place] 1.032 (1.000-1.030) Urine Protein NEG (NEG) Urine Glucose (UA) 3+ (NEG) Urine Ketones NEG (NEG) Urine Occult Blood 3+ (NEG) Urine Nitrite NEG (NEG) Urine Bilirubin NEG (NEG) Urine Urobilinogen NEG (NEG) Urine Leukocyte Esterase NEG (NEG) Urine WBC (Auto) 1-5 /hpf (0-5) Urine RBC (Auto) >30 /hpf (0-4) Urine Hyaline Casts (Auto) 0 /lpf (0-5) Urine Epithelial Cells (Auto) 5-10 /lpf (0-5) Urine Bacteria (Auto) NEG (NEG) Creatine Kinase MB Ratio (0-3.0) Creatine Kinase MB 2.4 ng/ml (0.5-3.6) Troponin I < 0.015 ng/ml (0-0.045) Test 04/12/17 05:10 04/12/17 06:36 White Blood Count 6.72 K/uL (4.8-10.8) Red Blood Count 4.54 M/uL (4.7-6.1) Hemoglobin 12.5 g/dL (14.0-18.0) Hematocrit 37.6 % (42-52) Mean Corpuscular Volume 82.8 fL (80-100) Mean Corpuscular Hemoglobin 27.5 pg (25-34) Mean Corpuscular Hemoglobin Concent 33.2 g/dl (32-36) Platelet Count 226 K/uL (130-400) Mean Platelet Volume 9.0 fL (7.4-10.4) Neutrophils (%) (Auto) 55.7 % Lymphocytes (%) (Auto) 24.4 % Monocytes (%) (Auto) 13.2 % Eosinophils (%) (Auto) 5.5 % Basophils (%) (Auto) 0.9 % Neutrophils # (Auto) 3.74 K/uL (1.4-6.5) Lymphocytes # (Auto) 1.64 K/uL (1.2-3.4) Monocytes # (Auto) 0.89 K/uL (0.11-0.59) Eosinophils # (Auto) 0.37 K/uL (0-0.5) Basophils # (Auto) 0.06 K/uL (0-0.2) RDW Standard Deviation 39.0 fL (36.4-46.3) RDW Coefficient of Variation 12.9 % (11.5-14.5) Immature Granulocyte % (Auto) 0.3 % Immature Granulocyte # (Auto) 0.02 K/uL (0.00-0.02) Anion Gap 5.0 mmol/L (3-11) Est Creatinine Clear Calc Drug Dose 67.1 ml/min Estimated GFR () 90.4 Estimated GFR (Non- 78.0 BUN/Creatinine Ratio 13.1 (10-20) Calcium Level 8.2 mg/dl (8.5-10.1) Triglycerides Level 235 mg/dl (0-150) Cholesterol Level 169 mg/dl (0-200) HDL Cholesterol 34 mg/dl LDL Cholesterol, Calculated 88 mg/dl VLDL Cholesterol, Calculated 47 mg/dl Cholesterol/HDL Ratio 5.0 Bedside Glucose 248 mg/dl (70-99) Imaging Recently completed brain MRI reveals an small acute infarct within the right cerebral peduncle. 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 He has mild residual weakness of the left leg, associated gait impairment, as well as associated mild dysarthria. Diabetes mellitus is a significant stroke risk factor in this patient Plan Improved control of this patient's diabetes mellitus would likely be beneficial in terms of stroke reduction going forward. Antiplatelet therapy is indicated in this patient. However, I would switch him from aspirin to Plavix 75 mg per day. PT/OT/speech therapy Further recommendations Contact me if I may be of further assistance
--- NOTE | 2017-04-12 13:23 | Hospitalist Progress Note ---
Hospitalist Progress Note Date of Service Apr 12, 2017. Subjective Pt evaluation today including: conversation w/ patient, physical exam, chart review, lab review, review of studies, review of inpatient medication list Patient seen and evaluated. Was admitted for gait abnormality and slurred speech with confirmed CVA on MRI. Patient reporting that he feels his walking is improving but reports that he didn't pay much attention to his symptoms but his family members noticed them. L sided facial drooping noted with some slurring but speech is largely clear. Does have some word finding issues and some issues with recall but is able to get out what he is trying to say with time. Discussed his sugars at home and reports using 15 units insulin with each meal and additional sliding scale with Lantus 35 units at night. Appears diet is a large component of his high glucose and patient aware. Discussed medication changes and updated him on current plan. PT/OT states he could return home with family support and home PT/OT/Speech Constitutional: No fever, No chills Eyes: No worsening of vision ENT: No nasal symptoms, No sore throat, No trouble swallowing Respiratory: No cough, No shortness of breath Cardiovascular: No chest pain Abdomen: No pain, No nausea, No vomiting, No diarrhea, No constipation Musculoskeletal: No swelling, No calf pain Male : No dysuria Neurologic: No weakness, No numbness/tingling Skin: No rash Medications Current Inpatient Medications Medications (Trade) Dose Ordered Sig/Rose Mary Route Start Time Stop Time Status Last Admin Dose Admin Heparin Sodium (Porcine) (Heparin Sq 5000 Unit/0.5ml) 5,000 unit Q12 SQ 04/11/17 21:00 05/11/17 20:59 04/12/17 07:43 5,000 UNIT Acetaminophen (Tylenol Tab) 650 mg Q4H PRN PO 04/11/17 12:30 05/11/17 12:29 Al Hydrox/Mg Hydrox/Simethicone (Maalox Max Susp) 15 ml Q4H PRN PO 04/11/17 12:30 05/11/17 12:29 Magnesium Hydroxide (Milk Of Magnesia Susp) 30 ml Q12H PRN PO 04/11/17 12:30 05/11/17 12:29 Ondansetron HCl (Zofran Inj) 4 mg Q6H PRN IV 04/11/17 12:30 05/11/17 12:29 04/12/17 01:46 4 MG Nitroglycerin (Nitrostat Tab) 0.4 mg UD PRN SL 04/11/17 12:30 05/11/17 12:29 Polyethylene (Miralax Powder Packet) 17 gm DAILY PRN PO 04/11/17 12:30 05/11/17 12:29 Miscellaneous Information (Pharmacist Discharge Med Rec Consult) 1 ea UD PRN N/A 04/11/17 12:30 05/11/17 12:29 Albuterol (Ventolin Hfa Inhaler) 2 puffs Q6 PRN INH 04/11/17 12:30 05/11/17 12:29 Ascorbic Acid (Vitamin C Tab) 500 mg DAILY PO 04/12/17 09:00 05/12/17 08:59 04/12/17 07:40 500 MG Budesonide/ Formoterol Fumarate (Symbicort 160/ 4.5 Inh) 2 puffs BID INH 04/11/17 21:00 05/11/17 20:59 04/12/17 07:40 2 PUFFS Dicyclomine HCl (Bentyl Tab) 20 mg BID PO 04/11/17 21:00 05/11/17 20:59 04/12/17 07:41 20 MG Levothyroxine Sodium (Synthroid Tab) 100 mcg DAILYBB PO 04/12/17 06:00 05/12/17 06:59 04/12/17 06:20 100 MCG Metoprolol Succinate (Toprol Xl Tab) 25 mg BID PO 04/11/17 21:00 05/11/17 20:59 04/12/17 07:40 25 MG Multivitamins (Multivitamin Tab) 1 tab DAILY PO 04/12/17 09:00 05/12/17 08:59 04/12/17 07:41 1 TAB Polyethylene (Miralax Powder Packet) 17 gm DAILY PO 04/12/17 09:00 05/12/17 08:59 Venlafaxine HCl (effeXOR EXTENDED REL CAP) 150 mg DAILY PO 04/12/17 09:00 05/12/17 08:59 04/12/17 07:41 150 MG Buspirone HCl (Buspar Tab) 7.5 mg TID PRN PO 04/11/17 12:30 05/11/17 12:29 04/12/17 00:56 10 MG Pantoprazole Sodium (Protonix Tab) 40 mg QAM PO 04/12/17 09:00 05/12/17 08:59 04/12/17 07:41 40 MG Insulin Aspart (novoLOG ASPART) SLIDING SCALE G... ACHS SC 04/11/17 16:00 05/11/17 15:59 04/12/17 11:58 8 UNITS Miscellaneous (Iv Fluids Completed) 1 ea PRN PRN N/A 04/11/17 13:30 04/11/18 13:29 Glucose (Glucose 40% Gel) 15-30 GRAMS 15 GRAMS... UD PRN PO 04/11/17 14:30 05/11/17 14:29 Glucose (Glucose Chew Tab) 4-8 Tablets 4 Tabl... UD PRN PO 04/11/17 14:30 05/11/17 14:29 Dextrose (Dextrose 50% 50ML Syringe) 25-50ML OF 50% DW IV FOR... UD PRN IV 04/11/17 14:30 05/11/17 14:29 Glucagon (Glucagon Inj) 1 mg UD PRN SQ 04/11/17 14:30 05/11/17 14:29 Gadobutrol (Gadavist) 7 mmol UD PRN IV 04/11/17 17:15 04/15/17 17:14 Insulin Glargine (Lantus Solostar Pen) 40 unit QPM SC 04/12/17 21:00 05/12/17 20:59 Clopidogrel Bisulfate (plAVix TAB) 75 mg QAM PO 04/13/17 09:00 05/13/17 08:59 Atorvastatin Calcium (Lipitor Tab) 40 mg QPM PO 04/12/17 21:00 05/11/17 20:59 UNV Objective Vital Signs Date Time Temp Pulse Resp B/P (MAP) Pulse Ox O2 Delivery O2 Flow Rate FiO2 04/12/17 12:00 Room Air 04/12/17 11:16 36.6 79 79 128/71 (90) 95 Room Air 04/12/17 08:00 Room Air 04/12/17 07:06 36.6 87 20 136/73 (94) 93 Room Air 04/12/17 04:00 96 Room Air 04/12/17 03:49 36.8 82 20 138/66 (90) 94 Room Air 04/11/17 23:59 94 Room Air 04/11/17 23:56 37.0 80 20 144/71 (95) 94 Room Air 04/11/17 20:00 Room Air 04/11/17 19:57 36.6 85 18 129/64 (85) 95 Room Air 04/11/17 15:00 36.7 87 16 131/71 92 Room Air 04/11/17 14:01 86 149/88 97 04/11/17 13:59 135/80 04/11/17 13:32 87 15 04/11/17 13:31 129/81 04/11/17 13:02 84 18 96 Physical Exam General Appearance: WD/WN, no apparent distress Eyes: sclerae normal ENT: hearing grossly normal Neck: supple, no JVD, trachea midline Respiratory/Chest: lungs clear, normal breath sounds, no respiratory distress, no accessory muscle use Cardiovascular: regular rate, rhythm, no gallop, no murmur Abdomen: normal bowel sounds, non tender, soft Extremities: no pedal edema, no calf tenderness Neurologic/Psychiatric: alert, oriented x 3, + facial droop (mild L facial droop; ), + pertinent finding (strength equal with hand disaster director and flexion/ extension of elbow; strength equal in lower extremities to dorsiflexion/plantar flexion and hip flexion; neg Romberg) Skin: normal color, warm/dry Laboratory Results Last 24 Hours Test 04/11/17 17:31 04/11/17 18:15 04/11/17 18:25 04/11/17 20:31 Bedside Glucose 218 mg/dl 209 mg/dl Creatine Kinase MB 2.1 ng/ml Troponin I < 0.015 ng/ml Creatine Kinase MB Ratio Test 04/12/17 02:25 04/12/17 02:35 04/12/17 05:10 04/12/17 06:36 Creatine Kinase MB Ratio Creatine Kinase MB 2.4 ng/ml Troponin I < 0.015 ng/ml White Blood Count 6.72 K/uL Red Blood Count 4.54 M/uL Hemoglobin 12.5 g/dL Hematocrit 37.6 % Mean Corpuscular Volume 82.8 fL Mean Corpuscular Hemoglobin 27.5 pg Mean Corpuscular Hemoglobin Concent 33.2 g/dl Platelet Count 226 K/uL Mean Platelet Volume 9.0 fL Neutrophils (%) (Auto) 55.7 % Lymphocytes (%) (Auto) 24.4 % Monocytes (%) (Auto) 13.2 % Eosinophils (%) (Auto) 5.5 % Basophils (%) (Auto) 0.9 % Neutrophils # (Auto) 3.74 K/uL Lymphocytes # (Auto) 1.64 K/uL Monocytes # (Auto) 0.89 K/uL Eosinophils # (Auto) 0.37 K/uL Basophils # (Auto) 0.06 K/uL RDW Standard Deviation 39.0 fL RDW Coefficient of Variation 12.9 % Immature Granulocyte % (Auto) 0.3 % Immature Granulocyte # (Auto) 0.02 K/uL Sodium Level 139 mmol/L Potassium Level 4.5 mmol/L Chloride Level 103 mmol/L Carbon Dioxide Level 31 mmol/L Anion Gap 5.0 mmol/L Blood Urea Nitrogen 12 mg/dl Creatinine 0.95 mg/dl Est Creatinine Clear Calc Drug Dose 67.1 ml/min Estimated GFR () 90.4 Estimated GFR (Non- 78.0 BUN/Creatinine Ratio 13.1 Random Glucose 218 mg/dl Calcium Level 8.2 mg/dl Triglycerides Level 235 mg/dl Cholesterol Level 169 mg/dl HDL Cholesterol 34 mg/dl LDL Cholesterol, Calculated 88 mg/dl VLDL Cholesterol, Calculated 47 mg/dl Cholesterol/HDL Ratio 5.0 Bedside Glucose 248 mg/dl Test 04/12/17 11:05 Bedside Glucose 304 mg/dl Assessment and Plan Mr. Falk is a 76 y/o male, with PMHx of COPD, asthma, T2DM, hyperlipidemia , depression, hypothyroidism, and GERD, who presented to the ED because of stroke-like symptoms over the past 24 hours. CVA confirmed on MRI R Cerebral Peduncle CVA: - D/C ASA and start Plavix 75 mg daily - Continue neuro checks and NIH stroke scale - Lipid panel with elevated triglycerides - Increased Atorvastatin from 20 mg to 40 mg daily - Echo reveals EF 60-65% with no wall motion abnormalities; grade I diastolic dysfunction - Neurology following - recommendations reviewed - will change ASA to Plavix T2DM with Hyperglycemia: UNCONTROLLED - A1c 10.5 - Confirms compliance with insulin but does report diet non-compliance - follows with endocrinology as outpatient - Change Lantus from 35 units to 40 units HS -- Plan to D/C home with Lantus 40 units and continue insulin at 15 units at meals and sliding coverage if needed COPD/Asthma without Exacerbation: STABLE Continue home inhalers Hypothyroidism: STABLE - Synthroid 100 mcg daily DVT Prophylaxis: Heparin 5000 units SC Q12H Code Status: LEVEL V, DNR Disposition: From home, lives w/ - PT/OT/Speech - home with home services to address deficits - Plan for discharge tomorrow Continued [facility] stay due to: ambulation difficulties Discharge planning: home (with PT/OT/Speech services)
[2017-04-12] MEDS ORDERED: INSDGIPEN SC (15:01)
[2017-04-12] MEDS ORDERED: PLV75 PO (15:01)
[2017-04-12] MEDS ORDERED: LPT20 PO (15:01)
--- NOTE | 2017-04-12 15:15 | Discharge Instructions ---
Discharge Instructions Date of Service Apr 12, 2017. Admission Reason for Admission: Stroke-Like Symptoms Discharge Discharge Diagnosis / Problem: Right cerebral stroke, ischemic, diabetes, poorly controlled Discharge Goals Goal(s): Improve function, Improve disease control (better diabetes control) Activity Recommendations Activity Limitations: resume your previous activity Lifting Limitations: none Exercise/Sports Limitations: as tolerated May Resume Sexual Activity: when tolerated Shower/Bathe: no limitations Driving or Machine Use: no limitations . Instructions / Follow-Up Instructions / Follow-Up Medications: - LANTUS: will increase to 40 units given the HbA1c of 10.5, start this dose this evening - NOVOLOG: continue to take 15 units with meals, eat consistently, refer to the sliding scale below - LIPITOR: dose increased from 20mg to 40mg, this is for better stroke prevention, considered high intensity - PLAVIX: antiplatelet medication to prevent future strokes, this replaces aspirin, stop aspirin Right cerebral ischemic stroke: cause is likely small vessel disease which is worsened by poor sugar control work up included echocardiogram, carotid doppler, telemetry monitoring that was all normal neurology recommends changing to Plavix and better sugar control to prevent future strokes Diabetes: stroke is a warning, puts you at risk for future strokes if you do not tighten up you glucose control increased Lantus to 40 units, may need adjusted further but will defer to endocrinology Novolog: continue to take 15 units with meals in addition, refer to this sliding scale, is based off of glucose reading prior to eating goal is 150 blood sugar additional Novolog 150-200 2 units 200-250 4 units 250-300 6 units 300-350 8 units > 350 10 units also, for the next week, check sugars randomly one hour after meals, will give you a better idea of how well the novolog is covering your meals FOLLOW UP - Maribell Worrell in one week - Neurology clinic in one month - Endocrinology in the beginning of April as previously scheduled Risk Factors for Stroke: You can reduce your chances of stroke by working with your medical provider to adopt a healthy lifestyle. Some specific ways to lower your chance of stroke are: * If you are a smoker, now is the time to stop smoking cigarettes * If you are diabetic, improve the control of your blood sugars * Avoid excessive amounts of alcohol * Control high blood pressure * Lose weight if you are overweight * Be sure to lead an active lifestyle * Eat a healthy diet low in salt, cholesterol and fat You should know about other risk factors for stroke that you are unable to control. These include: * Age 55 years or older * Male gender * Certain racial groups: , or / * Family History of Stroke, Mini stroke or Heart Attack * Sickle Cell Disease Follow Up: It is important for you to keep your follow up appointments with your medical provider. Current Hospital Diet Patient's current hospital diet: Diabetes Type 2 Diet, AHA Diet (Heart Healthy) Discharge Diet Recommended Diet: AHA Diet (Heart Healthy), Diabetes Type 2 Diet Pending Studies Studies pending at discharge: no Laboratory Results Hemoglobin A1c Test 04/11/17 10:05 Range/Units Estimated Average Glucose 255 mg/dl Hemoglobin A1c 10.5 H 4.5-5.6 % Lipid Panel Test 04/12/17 05:10 Range/Units Triglycerides Level 235 H 0-150 mg/dl Cholesterol Level 169 0-200 mg/dl HDL Cholesterol 34 mg/dl Cholesterol/HDL Ratio 5.0 LDL Cholesterol, Calculated 88 mg/dl Medical Emergencies . Who to Call and When: Medical Emergencies: Call 911 immediately if you experience any of the following warning signs and symptoms of Stroke: * Sudden numbness or weakness of the face, arm or leg, especially on one side of the body * Sudden confusion, trouble speaking or understanding * Sudden trouble seeing in one or both eyes * Sudden trouble walking, dizziness, loss of balance or coordination * Sudden severe headache with no cause Do not delay calling 911 if you experience any warning signs or symptoms of a stroke. Delay in seeking medical attention may affect what treatments can be given to you. . Non-Emergent Contact Non-Emergency issues call your: Primary Care Provider Call Non-Emergent contact if: you have any medication questions . . "Provider Documentation" section prepared by Ranjeet Rowell. . Stroke Core Measures Reason no t-PA for Stroke: Treatment not indicated Reason no antithrom by day 2: Treatment provided - N/A Reason no antithrom at D/C: Treatment provided - N/A Reason no statin at D/C: Treatment provided - N/A Reason no anticoag w/a fib: Treatment not indicated VTE Core Measure Inpt VTE Proph given/why not?: Unfractionated heparin SQ, T.E.D. Stockings, SCD 's [place] Drug Monitoring Program Search Results: no issues identified
--- NOTE | 2017-04-12 15:44 | Discharge Summary ---
Discharge Summary Date of Service Apr 12, 2017. Discharge Summary Admission Date: Apr 11, 2017 at 12:49 Discharge Date: Apr 12, 2017 Discharge Disposition: Home with services Principal Diagnosis: R Cerebral Peduncle CVA Problems/Secondary Diagnoses: 1. T2DM, Uncontrolled 2. COPD/Asthma 3. HLD 4. Hypothyroidism 5. GERD 6. Depression Immunizations: Have You Had Influenza Vaccine: Yes Influenza Vaccine Date: Aug 14, 2009 History of Tetanus Vaccine?: Yes Tetanus Immunization Date: March 28, 2005 History of Pneumococcal: Yes Pneumococcal Date: Aug 28, 2009 History of Hepatitis B Vaccine: No Procedures: 1. MRI OF THE BRAIN WITHOUT AND WITH IV CONTRAST FINDINGS: There is a 9 mm focus of restricted diffusion within the right cerebral peduncle shown on axial image 10 of 44. There is mild associated signal abnormality on the T2-weighted sequences. This represents an acute infarct. No additional foci of acute infarction are present. There are no intracranial masses or pathologic enhancement. Ventricular system is normal for age. Basilar cisterns are patent. There are no extra-axial collections. Flow-voids for the major intracranial vessels are present. Scattered white matter T2 hyperintense foci suggest small vessel disease. 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 Calvarial signal is maintained. Orbits are unremarkable. IMPRESSION: 1. 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 No mass effect or hemorrhagic conversion. 2. No intracranial masses or pathologic enhancement. 3. Moderate small vessel disease. 2. CAROTID ARTERY ULTRASOUND FINDINGS: There is moderate atherosclerotic plaque. Velocity measurements are listed below. COMMON CAROTID PEAK SYSTOLIC VELOCITY (CM/S): RIGHT 101 LEFT 93 ICA PEAK SYSTOLIC VELOCITY (CM/S): RIGHT 66 LEFT 76 The systolic ratios between the internal to common carotid arteries were normal. Antegrade flow is seen in the vertebral arteries. The external carotid arteries are patent. Blood pressure in the right arm measured 139/74. Blood pressure in the left arm measured 121/59. IMPRESSION: No evidence of a hemodynamically significant stenosis. 3. ECHOCARDIOGRAM -- Conclusions -- * 1. Normal LV size. Mild concentric LVH. * 2. Normal LV systolic function. LVEF 60-65%. No regional wall motion abnormalities. * 3. Normal RV size and function. * 4. Grade I diastolic dysfunction. * 5. Mild aortic valve sclerosis without stenosis. * 6. Negative bubble study for interatrial shunt. * 7. Compared with prior study on 03/07/2015: No significant change. Consultations: 1. Neurology 2. PT/OT Medication Reconciliation New Medications: Atorvastatin (Atorvastatin Calcium) 20 Mg Tab 40 MG PO QPM, #60 TAB 2 Refills Clopidogrel Bisulfate (Clopidogrel) 75 Mg Tab 75 MG PO QAM, #30 TAB 2 Refills Insulin Glargine (Lantus Solostar) 100 Unit/Ml Inj 40 UNIT SC QPM, #1 BOX 2 Refills Continued Medications: Albuterol Hfa (Ventolin Hfa) 200 Puffs/60200 Mcg Aers 2-4 PUFFS INH Q6H, #1 INHALER Alprostadil (Vasodilator) (Edex) 20 Mcg Kit 20 MCG INJ UD Ascorbic Acid (Vitamin C) 500 Mg Tab 500 MG PO DAILY Budesonide/Formoterol Fumarate (Symbicort 160/4.5 Inhaler) 120 Puffs/ Aero 2 PUFFS INH BID RINSE MOUTH AFTER USE. Buspirone Hcl (Buspirone Hcl) 7.5 Mg Tab 7.5 MG PO TID PRN for Anxiety Dicyclomine HCl (Dicyclomine HCl) 20 Mg Tab 20 MG PO BID Insulin Aspart (Novolog Penfill) 100 Unit/Ml Inj UNITS SQ UD SLINDING SCALE Levalbuterol Tartrate (Levalbuterol Tartrate Hfa) 45 Mcg/Act Aer 1 PUFF INH Q6, #1 INHALER Levothyroxine Sodium (Synthroid) 100 Mcg Tab 100 MCG PO DAILY, TAB Metoprolol Succinate (Metoprolol Succinate ER) 25 Mg Tabcr 25 MG PO BID Multivitamin (Multivitamin) Tab 1 TAB PO DAILY Omeprazole (Prilosec) 20 Mg Cap 20 MG PO DAILY Polyethylene (Miralax) 17 Gm Pow 17 GM PO DAILY Venlafaxine Hcl (Effexor Extended Rel) 150 Mg Cap 150 MG PO DAILY, CAP Discontinued Medications: Aspirin (Aspirin Ec) 81 Mg Tab 81 MG PO DAILY Atorvastatin (Atorvastatin Calcium) 20 Mg Tab 20 MG PO QPM Insulin Glargine (Lantus Solostar) 100 Unit/Ml Inj 35 UNITS SC QPM, PEN Discharge Exam REVIEW OF SYSTEMS: Constitutional: No fever, No chills Eyes: No worsening of vision ENT: No nasal symptoms, No sore throat, No trouble swallowing Respiratory: No cough, No shortness of breath Cardiovascular: No chest pain Abdomen: No pain, No nausea, No vomiting, No diarrhea, No constipation Musculoskeletal: No swelling, No calf pain Male : No dysuria Neurologic: No weakness, No numbness/tingling Skin: No rash PHYSICAL EXAMINATION: General Appearance: WD/WN, no apparent distress Eyes: sclerae normal ENT: hearing grossly normal Neck: supple, no JVD, trachea midline Respiratory/Chest: lungs clear, normal breath sounds, no respiratory distress, no accessory muscle use Cardiovascular: regular rate, rhythm, no gallop, no murmur Abdomen: normal bowel sounds, non tender, soft Extremities: no pedal edema, no calf tenderness Neurologic/Psychiatric: alert, oriented x 3, + facial droop (mild L facial droop; ), + pertinent finding (strength equal with hand rock cutter and flexion/ extension of elbow; strength equal in lower extremities to dorsiflexion/plantar flexion and hip flexion; neg Romberg) Skin: normal color, warm/dry Hospital Course ADMISSION: Patient is a pleasant 76 y/o male, with PMHx of COPD, asthma, T2DM, hyperlipidemia, depression, hypothyroidism, and GERD, who presented to the ED because of stroke-like symptoms over the past 24 hours. The patient's had a PCP appointment today. During that appointment, the PCP noticed the patient was walking abnormally and instructed patient to come to the ED. According to family at bedside, they noticed the patient had a left foot drop during sikh last evening; he almost tripped over his foot. They also noted the patient has been slurring his speech. Family denies any confusion. Patient denies any cardiac history. Denies history of PE/DVT, or TIA/stroke. Patient denies any fever, chills, sweats, lightheadedness, dizziness, vision changes, CP, palpitations, edema, SOB, wheezing, cough, abdominal pain, nausea, vomiting, diarrhea, urinary symptoms, melena, numbness/tingling, muscle/joint pain, anxiety/depression, active bleeding, or new skin discoloration/changes. When patient arrived to ED, his BSG level was 360- he was treated with 10 u of Novolin. At admission, BSG was 249. According to the patient, his sugars have been running in the 200s over the last week or so. HOSPITAL COURSE: Mr. Falk was admitted for acute R cerebral peduncle CVA with signs of gait dysfunction, mild L facial droop, mild dysarthria, and some word finding abnormalities. Lipid panel obtained with the only abnormality noted for triglycerides elevated at 235. Given CVA and other risk factors, his Atorvastatin was increased to 40 mg daily. As this event occurred while on ASA this was D/C'd and Plavix 75 mg daily instituted. Goal for improvement in diabetes control as patient reports insulin compliance but admits to diet non- compliance. Increased Lantus to 40 units SC daily and instructed to continue fixed meal-time coverage of 15 units and sliding scale. He is to follow-up with Endocrinology as an outpatient. PT/OT/Speech evaluations completed recommending to return home with all of these services to improve on current deficits. Patient is stable and optimal for D/C home with PT/OT/Speech services and PCP follow-up. Total Time Spent: Greater than 30 minutes This includes examination of the patient, discharge planning, medication reconciliation, and communication with other providers. Discharge Instructions Please refer to the electronic Patient Visit Report (Discharge Instructions) for additional information. Additional Copies To Maribell Worrell C.R.N.P
[2017-04-12] MEDS ORDERED: PANT40TA PO (16:16)
--- NOTE | 2017-04-12 16:37 | Pharmacy Progress Note ---
Pharmacist Stroke Counseling Date of Service Apr 12, 2017. Scope Pharmacy has been consulted to provide medication discharge counseling for this patient admitted with ischemic stroke/hemorrhagic stroke/ transient ischemic attack as per the Pharmacist Discharge Counseling for Stroke Patients Protocol. Medications on Discharge New Medications: Pantoprazole (Protonix) 40 Mg Tab 40 MG PO DAILY, #30 TAB Atorvastatin (Atorvastatin Calcium) 20 Mg Tab 40 MG PO QPM, #60 TAB 2 Refills Clopidogrel Bisulfate (Clopidogrel) 75 Mg Tab 75 MG PO QAM, #30 TAB 2 Refills Insulin Glargine (Lantus Solostar) 100 Unit/Ml Inj 40 UNIT SC QPM, #1 BOX 2 Refills Continued Medications: Albuterol Hfa (Ventolin Hfa) 200 Puffs/52431 Mcg Aers 2-4 PUFFS INH Q6H, #1 INHALER Alprostadil (Vasodilator) (Edex) 20 Mcg Kit 20 MCG INJ UD Ascorbic Acid (Vitamin C) 500 Mg Tab 500 MG PO DAILY Budesonide/Formoterol Fumarate (Symbicort 160/4.5 Inhaler) 120 Puffs/ Aero 2 PUFFS INH BID RINSE MOUTH AFTER USE. Buspirone Hcl (Buspirone Hcl) 7.5 Mg Tab 7.5 MG PO TID PRN for Anxiety Dicyclomine HCl (Dicyclomine HCl) 20 Mg Tab 20 MG PO BID Insulin Aspart (Novolog Penfill) 100 Unit/Ml Inj UNITS SQ UD SLINDING SCALE Levalbuterol Tartrate (Levalbuterol Tartrate Hfa) 45 Mcg/Act Aer 1 PUFF INH Q6, #1 INHALER Levothyroxine Sodium (Synthroid) 100 Mcg Tab 100 MCG PO DAILY, TAB Metoprolol Succinate (Metoprolol Succinate ER) 25 Mg Tabcr 25 MG PO BID Multivitamin (Multivitamin) Tab 1 TAB PO DAILY Polyethylene (Miralax) 17 Gm Pow 17 GM PO DAILY Venlafaxine Hcl (Effexor Extended Rel) 150 Mg Cap 150 MG PO DAILY, CAP Discontinued Medications: Aspirin (Aspirin Ec) 81 Mg Tab 81 MG PO DAILY Atorvastatin (Atorvastatin Calcium) 20 Mg Tab 20 MG PO QPM Insulin Glargine (Lantus Solostar) 100 Unit/Ml Inj 35 UNITS SC QPM, PEN Action The above medications, specifically ones for stroke treatment/prophylaxis, have been reviewed in detail with the patient prior to discharge. This includes indication, common adverse reactions, drug interactions, and medication administration. Medication counseling has been employed using the teach-back method to ensure understanding. Outcome The patient has demonstrated understanding of the medications. Please note, they are aware that the pharmacist will call them within 72 hours post-discharge to confirm that the appropriate medications are being taken and answer any further medication related questions the patient might have at that time. Contact information Individual to be contacted: patient/ (martita) Relationship to patient (if applicable): Phone number: [phone] Best time to call: am Additional comments: Patient very pleasant to talk with. Originally discharged on omeprazole, however contacted provider who then switched to pantoprazole due to drug interaction with plavix. (notified nurse who had already printed discharge document so that she could change it). Patient was familiar with drug names, but had a hard time telling me why he takes them. He told me that his is much better with managing his medications. I reviewed all of the medications that he was to continue and he was not sure if he was still on the Alprostadil ( clarify on post discharge telephone call), but all of the others sounded familiar. Educated him on the importance of getting these new medications filled as soon as possible. (he had stated in the past that he has trouble with his pharmacy having medications in stock). Talked about how he will start keeping a log to monitor his blood glucose levels and bringing that with him to the doctors. Thank you for allowing pharmacy to be involved in the care of this patient. Please call [phone] or [phone] with any additional questions
[2017-04-12] MEDS ORDERED: INSULIN GLARGINE SOLOSTAR 100 UNITS/ML 3 ML PEN SC SCH (21:00)
[2017-04-12] MEDS ORDERED: ATORVASTATIN 20 MG TAB PO SCH (21:00)
[2017-04-13] MEDS ORDERED: CLOPIDOGREL BISULFATE 75 MG TAB PO SCH (09:00)
--- NOTE | 2017-04-15 15:59 | Pharmacy Progress Note ---
Pharmacist Post D/C Phone Note Date of phone call: Apr 15, 2017. 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 Discharge counseling pharmacist contact information has already been provided to the patient should questions arise. Thank you for allowing us to be involved in the care of this patient.
== END 2017-04-12 18:05 | disposition home health service (06) | DRG 66 ==
LOC: EDBD 09:57 → C.EDA 09:58 → C.2T 12:49 → EDBEDREQ 12:50 → ENRESERV 12:53
PROVIDERS: ADMIT Hospitalist; ATTEND Internal Medicine
DX: I63.9 Cerebral infarction, unspecified (principal); R29.810 Facial weakness; R26.9 Unspecified abnormalities of gait and mobility; R47.1 Dysarthria and anarthria; R47.81 Slurred speech; E03.9 Hypothyroidism, unspecified; J44.9 Chronic obstructive pulmonary disease, unspecified; E11.65 Type 2 diabetes mellitus with hyperglycemia; E78.5 Hyperlipidemia, unspecified; F32.9 Major depressive disorder, single episode, unspecified; K21.9 Gastro-esophageal reflux disease without esophagitis; Z79.82 Long term (current) use of aspirin; Z79.899 Other long term (current) drug therapy; Z79.4 Long term (current) use of insulin; Z66 Do not resuscitate; Z87.891 Personal history of nicotine dependence; Z80.9 Family history of malignant neoplasm, unspecified; Z83.3 Family history of diabetes mellitus; Z82.49 Family history of ischemic heart disease and other diseases of the circulatory system; Z83.6 Family history of other diseases of the respiratory system; Z91.19 Patient's noncompliance with other medical treatment and regimen

== ENCOUNTER → 2017-06-07 | Outpatient (CLI) | payer BC, OTHER ==
[~2017-06-07] MED LIST changes: -ALBU4TAB10 PO; -ASPI81TA28 PO; -ATV5X PO; +BUSP1TAB46 PO; +DICY1TAB25 PO; -EFFSR75 PO; +LEVO100T PO; -LEVO112T4 PO; -LPT/20 PO; +LPT20 PO; +MRLP17 PO; -OMEP20CA9 PO; +PANT40TA PO; +PLV75 PO; +VENL150C56 PO; +VNTHFA/IN INH
[2017-06-08 07:56] LABS: ESTIMATED AVERAGE GLUCOSE 229 mg/dl; HA1C FLAG Normal (Normal)
== END | disposition home or self-care (01) ==
LOC: C.LABPVFM 15:40
PROVIDERS: ATTEND Nurse Practitioner Adult Health
DX: E11.49 Type 2 diabetes mellitus with other diabetic neurological complication (principal); E03.9 Hypothyroidism, unspecified

== ENCOUNTER → 2017-07-13 | Outpatient (CLI) | payer BC, OTHER ==
[2017-07-13 13:07] LABS: BLOOD UREA NITROGEN 17 mg/dl (7-18); BUN/CREATININE RATIO 15.6 (10-20); CALCIUM 9.1 mg/dl (8.5-10.1); CARBON DIOXIDE 30 mmol/L (21-32); CHLORIDE 102 mmol/L (98-107); CHOLESTEROL 157 mg/dl (0-200); GLUCOSE 215 mg/dl (70-99); POTASSIUM 4.1 mmol/L (3.5-5.1); SODIUM 136 mmol/L (136-145); TRIGLYCERIDES 166 mg/dl (0-150); VERY LOW DENSITY LIPOPROT CALC 33 mg/dl
[2017-07-13 13:10] LABS: CHOLESTEROL/HDL RATIO 3.6; HDL CHOLESTEROL 44 mg/dl; LDL CHOLESTEROL CALCULATED 80 mg/dl
== END | disposition home or self-care (01) ==
LOC: C.LABPVFM 09:18
PROVIDERS: ATTEND Nurse Practitioner
DX: E78.5 Hyperlipidemia, unspecified (principal); I10 Essential (primary) hypertension

== ENCOUNTER 2017-08-27 20:31 | Observation (INO) | payer BC, OTHER ==
[~2017-08-27] VITALS: Ht 182.9 cm; Wt 69.7 kg
[2017-08-27 21:28] LABS: BASO % 0.6 %; BASO ABS # 0.04 K/uL (0-0.2); COMPLETE YES; EOS % 3.4 %; IG% 0.1 %; LYMPH % 19.5 %; LYMPH ABS # 1.42 K/uL (1.2-3.4); MEAN CELL VOLUME 81.2 fL (80-100); MEAN CORPUSCULAR HEMOGLOBIN 27.5 pg (25-34); MEAN CORPUSCULAR HGB CONC 33.9 g/dl (32-36); MONO % 11.7 %; NEUT % 64.7 %; PLATELET COUNT 282 K/uL (130-400); RED BLOOD COUNT 5.05 M/uL (4.7-6.1); WHITE BLOOD COUNT 7.27 K/uL (4.8-10.8)
[2017-08-27] MEDS ORDERED: PANT1TAB48 PO (21:30)
[2017-08-27] MEDS ORDERED: LEVA45AE INH (21:30)
[2017-08-27] MEDS ORDERED: PLAVIX75 PO (21:30)
[2017-08-27] MEDS ORDERED: ATOR-24 PO (21:30)
[2017-08-27] MEDS ORDERED: INSDGIPEN SC (21:30)
[2017-08-27 21:43] LABS: BLOOD UREA NITROGEN 16 mg/dl (7-18); BUN/CREATININE RATIO 12.9 (10-20); CARBON DIOXIDE 31 mmol/L (21-32); CHLORIDE 105 mmol/L (98-107); CREATININE 1.22 mg/dl (0.60-1.40); GLUCOSE 159 mg/dl (70-99); POTASSIUM 3.9 mmol/L (3.5-5.1); SODIUM 141 mmol/L (136-145)
[2017-08-27] MEDS ORDERED: ALBUT/IPRATROP 3MG/0.5MG NEB 3 ML VIAL INH STA (21:43)
--- NOTE | 2017-08-27 21:55 | DIAGNOSTIC IMAGING REPORT ---
CHEST 2 VIEWS ROUTINE CLINICAL HISTORY: 2 day hx of SOB. rule out infection dyspnea COMPARISON STUDY: 04/11/2017 FINDINGS: Mild emphysematous change. Minimal scattered chronic fibrotic change. No focal infiltrate. IMPRESSION: No acute process. Mild emphysematous change. The above report was generated using voice recognition software. It may contain grammatical, syntax or spelling errors. Electronically signed by: Kwesi Powell M.D. 08/27/2017 9:54 PM Dictated Date/Time: 08/27/2017 9:53 PM
--- NOTE | 2017-08-27 22:07 | EMERGENCY ROOM VISIT NOTE ---
History First contact with patient: 20:41 Chief Complaint: SHORTNESS OF BREATH Stated Complaint: TROUBLE BREATHING,SOB Nursing Triage Summary: Patient reports intermittent shortness of breath, especially upon exertion, over the last week. Patient denies any chest pain. Patient denies any lung problems. Patient is a diabetic and takes insulin to control his blood sugars. History of Present Illness The patient is a 77 year old male with a PMH of DM, COPD, asthma, HTN, hypercholesterolemia and hypothyroidism who presents to the Emergency Room with complaints of a two day history of shortness of breath. He has a history of asthma and COPD, and has inhalers prescribed. He states that over the last 2 days, he has noticed shortness of breath at rest, and worst with exertion. His notes he has been more fatigued in the last few days and that he gets short of breath with walking down the [place], and especially with stairs. He denies cough, fever, chills, chest pain, nausea, vomiting. He states he does not have a history of heart failure, no previous heart attacks, denies orthopnea and PND, and states he only needs one pillow to sleep at night. He denies recent travel or immobilization, but is currently recovering from a stroke he had 4 months ago. Of note, he has a 20 pack year history of smoking, and quit 40 years ago. He denies alcohol use or recreational drugs. Review of Systems See HPI for pertinent positives & negatives. A total of 10 systems reviewed and were otherwise negative. Past Medical/Surgical History Medical Problems: (1) Asthma (2) Bilateral pneumonia (3) Bronchitis (4) COPD exacerbation (5) Diabetes (6) Dyspnea (7) Pneumonia (8) Stroke-like symptoms Surgical Problems: (1) H/O lumbar discectomy Family History Cancer Diabetes mellitus Heart disease Hypertension Lung disease Social History Smoking Status: Never Smoker Alcohol Use: none Marital Status: Housing Status: lives with family Occupation Status: unemployed Current/Historical Medications Scheduled Albuterol Hfa (Ventolin Hfa), 2-4 PUFFS INH Q6H Ascorbic Acid (Vitamin C), 500 MG PO DAILY Atorvastatin (Lipitor), 40 MG PO DAILY Budesonide/Formoterol Fumarate (Symbicort 160/4.5 Inhaler), 2 PUFFS INH BID Clopidogrel Bisulfate (Plavix), 75 MG PO QAM Dicyclomine HCl (Dicyclomine HCl), 20 MG PO BID Insulin Aspart (Novolog Penfill), UNITS SQ UD Insulin Glargine (Lantus Solostar), 30 UNITS SC QPM Levalbuterol Tartrate (Levalbuterol Tartrate Hfa), 1 PUFF INH Q6H Levothyroxine Sodium (Synthroid), 100 MCG PO DAILY Metoprolol Succinate (Metoprolol Succinate ER), 25 MG PO BID Multivitamin (Multivitamin), 1 TAB PO DAILY Pantoprazole (Protonix), 40 MG PO DAILY Polyethylene (Miralax), 17 GM PO DAILY Venlafaxine Hcl (Effexor Extended Rel), 150 MG PO DAILY Scheduled PRN Buspirone Hcl (Buspirone Hcl), 7.5 MG PO TID PRN for Anxiety Physical Exam Vital Signs Date Time Temp Pulse Resp B/P (MAP) Pulse Ox O2 Delivery O2 Flow Rate FiO2 08/27/17 22:36 91 18 123/79 98 Room Air 08/27/17 21:22 Room Air 08/27/17 21:12 94 08/27/17 21:00 Room Air 08/27/17 20:37 36.8 104 16 147/76 93 Room Air Physical Exam HEENT: Head - normocephalic and atraumatic. Pupils are equal, round, and reactive to light. Extraocular eye muscles are intact and sclera are anicteric. Ears - bilaterally patent canals with noninjected tympanic membranes and no evidence of hemotympanum. Nose - moist nasal mucosa without discharge. Mouth - moist buccal mucosa. Oropharynx is nonerythematous and there is no tonsillar exudate or edema noted. Neck: Supple; no JVD, nuchal rigidity, cervical lymphadenopathy, or auscultated bruits. Heart: Regular rate and rhythm. There is a normal S1 and S2 with no murmurs, clicks, or gallops appreciated. Lungs: Clear to auscultation bilaterally with no wheezes, rales, or rhonchi. Soft breath sounds bilaterally. Abdomen: Soft, completely nontender, nondistended, with good bowel sounds. There are no palpable pulsatile masses or hepatosplenomegaly. There is no guarding, rigidity, or rebound noted. Extremities: No evidence of cyanosis, clubbing, or edema. There are easily palpable peripheral pulses. Neuro:The patient is awake and alert, oriented to day, time, and place. Muscle strength is 5/5 in all 4 extremities. 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 There are no cerebellar signs. Medical Decision & Procedures ER Provider Diagnostic Interpretation: CHEST 2 VIEWS ROUTINE CLINICAL HISTORY: 2 day hx of SOB. rule out infection dyspnea COMPARISON STUDY: 04/11/2017 FINDINGS: Mild emphysematous change. Minimal scattered chronic fibrotic change. No focal infiltrate. IMPRESSION: No acute process. Mild emphysematous change. Laboratory Results 08/27/17 21:00 Red Blood Count 5.05, Mean Corpuscular Volume 81.2, Mean Corpuscular Hemoglobin 27.5, Mean Corpuscular Hemoglobin Concent 33.9, Mean Platelet Volume 9.0, Neutrophils (%) (Auto) 64.7, Lymphocytes (%) (Auto) 19.5, Monocytes (%) (Auto) 11.7, Eosinophils (%) (Auto) 3.4, Basophils (%) (Auto) 0.6, Neutrophils # (Auto ) 4.70, Lymphocytes # (Auto) 1.42, Monocytes # (Auto) 0.85, Eosinophils # (Auto ) 0.25, Basophils # (Auto) 0.04 08/27/17 21:00 Test 08/27/17 21:00 08/27/17 21:27 White Blood Count 7.27 K/uL (4.8-10.8) Red Blood Count 5.05 M/uL (4.7-6.1) Hemoglobin 13.9 g/dL (14.0-18.0) Hematocrit 41.0 % (42-52) Mean Corpuscular Volume 81.2 fL (80-100) Mean Corpuscular Hemoglobin 27.5 pg (25-34) Mean Corpuscular Hemoglobin Concent 33.9 g/dl (32-36) Platelet Count 282 K/uL (130-400) Mean Platelet Volume 9.0 fL (7.4-10.4) Neutrophils (%) (Auto) 64.7 % Lymphocytes (%) (Auto) 19.5 % Monocytes (%) (Auto) 11.7 % Eosinophils (%) (Auto) 3.4 % Basophils (%) (Auto) 0.6 % Neutrophils # (Auto) 4.70 K/uL (1.4-6.5) Lymphocytes # (Auto) 1.42 K/uL (1.2-3.4) Monocytes # (Auto) 0.85 K/uL (0.11-0.59) Eosinophils # (Auto) 0.25 K/uL (0-0.5) Basophils # (Auto) 0.04 K/uL (0-0.2) RDW Standard Deviation 42.2 fL (36.4-46.3) RDW Coefficient of Variation 14.2 % (11.5-14.5) Immature Granulocyte % (Auto) 0.1 % Immature Granulocyte # (Auto) 0.01 K/uL (0.00-0.02) Anion Gap 5.0 mmol/L (3-11) Est Creatinine Clear Calc Drug Dose 52.8 ml/min Estimated GFR () 66.3 Estimated GFR (Non- 57.2 BUN/Creatinine Ratio 12.9 (10-20) Calcium Level 9.0 mg/dl (8.5-10.1) Troponin I < 0.015 ng/ml (0-0.045) Pro-B-Type Natriuretic Peptide 30 pg/ml (0-1800) Bedside Troponin I 0.050 ng/ml (0-0.045) Medications Administered Medications (Trade) Dose Ordered Sig/Rose Mary Route Start Time Stop Time Status Last Admin Dose Admin Albuterol/ Ipratropium (Duoneb) 3 ml Q4R STAT INH 08/27/17 21:43 08/27/17 21:44 DC 08/27/17 21:55 3 ML ED Course 20:45: The patient was evaluated in room B4. 21:00: The case was discussed with the attending, Dr. Fields and the patient was seen again with Dr. Fields. 21:45: The patient was reassessed. He feels well at this time. His troponin was elevated at 0.05, and I discussed admitting him for further cardiac workup with him. The patient was agreeable to this plan. 22:30: The case was discussed with [facility] hospitalist, Dr. Zamudio and Dr. Shepard, resident. 22:45: Patient was reassessed, he states he feels well. No SOB at this time. Medical Decision The patient is a 77 year old male with a PMH of DM, COPD, asthma, HTN, hypercholesterolemia and hypothyroidism who presents to the Emergency Room with complaints of a two day history of shortness of breath. Differentials include: pneumonia, infective exacerbation of COPD, ID, PE, asthma attack. Given his increase in troponin (0.05), he will be admitted for a cardiac workup. The patient and his family were in agreement with this plan. Impression Primary Impression: SOB (shortness of breath) Additional Impression: Elevated troponin Departure Information Dispostion Admitted as an inpatient Referrals Maribell Worrell, Yumiko.R.N.P (PCP) Patient Instructions My [facility] Resident Tracking Resident Involvement: Resident Care Provided Care Provided: Adult ED Problem Qualifiers
--- NOTE | 2017-08-27 22:17 | EMERGENCY ROOM VISIT NOTE ---
History Report prepared by Jody: Adrien Ingram Under the Supervision of: Dr. Vega Fields M.D. First contact with patient: 20:39 Chief Complaint: SHORTNESS OF BREATH Stated Complaint: TROUBLE BREATHING,SOB History of Present Illness The patient is a 77 year old male who presents to the Emergency Room with complaints of worsening shortness of breath that began two days ago. He states that his shortness of breath is worsened with exertion. The patient is accompanied by his who states that he has been having difficulty climbing stairs or walking down the [place] without becoming short of breath. He reports that he has been taking his inhalers and Albuterol, but denies any relief of symptoms. The patient states that he had a pulmonary test done a week ago, which was normal. The patient admits to a history of pneumonia, diabetes, hypertension, COPD, asthma, and hypothyroidism. He denies a history of a blood clot in leg or lung, heart failure, and a heart attack. The patient admits that he is a former smoker. He denies cough, leg swelling, fever, chest pain, nausea , vomiting, chills, and recent travel. Source of History: patient, spouse/significant other Onset: two days ago Position: other (global) Quality: other (global) Timing: worsening Modifying Factors (Worsening): exertion Modifying Factors (Relieving): other (Albuterol, inhalers) Associated Symptoms: No fevers, No chills, No cough, No chest pain, No nausea, No vomiting Review of Systems See HPI for pertinent positives & negatives. A total of 10 systems reviewed and were otherwise negative. Past Medical & Surgical Medical Problems: (1) Asthma (2) Bilateral pneumonia (3) Bronchitis (4) COPD exacerbation (5) Diabetes (6) Dyspnea (7) Pneumonia (8) Stroke-like symptoms Surgical Problems: (1) H/O lumbar discectomy Family History Cancer Diabetes mellitus Heart disease Hypertension Lung disease Social History Smoking Status: Never Smoker Alcohol Use: none Marital Status: Housing Status: lives with family Occupation Status: unemployed Current/Historical Medications Scheduled Albuterol Hfa (Ventolin Hfa), 2-4 PUFFS INH Q6H Ascorbic Acid (Vitamin C), 500 MG PO DAILY Atorvastatin (Lipitor), 40 MG PO DAILY Budesonide/Formoterol Fumarate (Symbicort 160/4.5 Inhaler), 2 PUFFS INH BID Clopidogrel Bisulfate (Plavix), 75 MG PO QAM Dicyclomine HCl (Dicyclomine HCl), 20 MG PO BID Insulin Aspart (Novolog Penfill), UNITS SQ UD Insulin Glargine (Lantus Solostar), 30 UNITS SC QPM Levalbuterol Tartrate (Levalbuterol Tartrate Hfa), 1 PUFF INH Q6H Levothyroxine Sodium (Synthroid), 100 MCG PO DAILY Metoprolol Succinate (Metoprolol Succinate ER), 25 MG PO BID Multivitamin (Multivitamin), 1 TAB PO DAILY Pantoprazole (Protonix), 40 MG PO DAILY Polyethylene (Miralax), 17 GM PO DAILY Venlafaxine Hcl (Effexor Extended Rel), 150 MG PO DAILY Scheduled PRN Buspirone Hcl (Buspirone Hcl), 7.5 MG PO TID PRN for Anxiety Allergies Coded Allergies: No Known Allergies (Verified , 08/27/17) Physical Exam Vital Signs Date Time Temp Pulse Resp B/P (MAP) Pulse Ox O2 Delivery O2 Flow Rate FiO2 08/27/17 22:36 91 18 123/79 98 Room Air 08/27/17 21:22 Room Air 08/27/17 21:12 94 08/27/17 21:00 Room Air 08/27/17 20:37 36.8 104 16 147/76 93 Room Air Physical Exam GENERAL: Patient is in no acute distress. HEENT: No acute trauma, normocephalic atraumatic, mucous membranes moist, no nasal congestion, no scleral icterus. NECK: No stridor, no adenopathy, no meningismus, trachea is midline. LUNGS: Diminished breath sounds bilaterally. Breaths sounds are equal. No wheezing or rhonchi. HEART: Without murmurs gallops or rubs, regular rate and rhythm. ABDOMEN: Soft, nontender, bowel sounds positive, no hernias, no peritonitis. EXTREMITIES: No cyanosis or edema, full range of motion of all the joints without pain or difficulty, no signs for acute trauma. NEUROLOGIC: Oriented x 3, no acute motor or sensory deficits, no focal weakness. SKIN: No rash, no jaundice, no diaphoresis. Medical Decision & Procedures ER Provider Diagnostic Interpretation: X-ray results as stated below per interpretation by me and the radiologist: CHEST 2 VIEWS ROUTINE CLINICAL HISTORY: 2 day hx of SOB. rule out infection dyspnea COMPARISON STUDY: 04/11/2017 FINDINGS: Mild emphysematous change. Minimal scattered chronic fibrotic change. No focal infiltrate. IMPRESSION: No acute process. Mild emphysematous change. The above report was generated using voice recognition software. It may contain grammatical, syntax or spelling errors. Electronically signed by: Kwesi Powell M.D. 08/27/2017 9:54 PM Dictated Date/Time: 08/27/2017 9:53 PM Laboratory Results 08/27/17 21:00 Red Blood Count 5.05, Mean Corpuscular Volume 81.2, Mean Corpuscular Hemoglobin 27.5, Mean Corpuscular Hemoglobin Concent 33.9, Mean Platelet Volume 9.0, Neutrophils (%) (Auto) 64.7, Lymphocytes (%) (Auto) 19.5, Monocytes (%) (Auto) 11.7, Eosinophils (%) (Auto) 3.4, Basophils (%) (Auto) 0.6, Neutrophils # (Auto ) 4.70, Lymphocytes # (Auto) 1.42, Monocytes # (Auto) 0.85, Eosinophils # (Auto ) 0.25, Basophils # (Auto) 0.04 08/27/17 21:00 Test 08/27/17 21:00 08/27/17 21:27 White Blood Count 7.27 K/uL (4.8-10.8) Red Blood Count 5.05 M/uL (4.7-6.1) Hemoglobin 13.9 g/dL (14.0-18.0) Hematocrit 41.0 % (42-52) Mean Corpuscular Volume 81.2 fL (80-100) Mean Corpuscular Hemoglobin 27.5 pg (25-34) Mean Corpuscular Hemoglobin Concent 33.9 g/dl (32-36) Platelet Count 282 K/uL (130-400) Mean Platelet Volume 9.0 fL (7.4-10.4) Neutrophils (%) (Auto) 64.7 % Lymphocytes (%) (Auto) 19.5 % Monocytes (%) (Auto) 11.7 % Eosinophils (%) (Auto) 3.4 % Basophils (%) (Auto) 0.6 % Neutrophils # (Auto) 4.70 K/uL (1.4-6.5) Lymphocytes # (Auto) 1.42 K/uL (1.2-3.4) Monocytes # (Auto) 0.85 K/uL (0.11-0.59) Eosinophils # (Auto) 0.25 K/uL (0-0.5) Basophils # (Auto) 0.04 K/uL (0-0.2) RDW Standard Deviation 42.2 fL (36.4-46.3) RDW Coefficient of Variation 14.2 % (11.5-14.5) Immature Granulocyte % (Auto) 0.1 % Immature Granulocyte # (Auto) 0.01 K/uL (0.00-0.02) Prothrombin Time 10.6 SECONDS (9.0-12.0) Prothromb Time International Ratio 1.0 (0.9-1.1) Anion Gap 5.0 mmol/L (3-11) Est Creatinine Clear Calc Drug Dose 52.8 ml/min Estimated GFR () 66.3 Estimated GFR (Non- 57.2 BUN/Creatinine Ratio 12.9 (10-20) Calcium Level 9.0 mg/dl (8.5-10.1) Troponin I < 0.015 ng/ml (0-0.045) Pro-B-Type Natriuretic Peptide 30 pg/ml (0-1800) Bedside Troponin I 0.050 ng/ml (0-0.045) Laboratory results reviewed by me. Medications Administered Medications (Trade) Dose Ordered Sig/Rose Mary Route Start Time Stop Time Status Last Admin Dose Admin Albuterol/ Ipratropium (Duoneb) 3 ml Q4R STAT INH 08/27/17 21:43 08/27/17 21:44 DC 08/27/17 21:55 3 ML ECG Indication: SOB/dyspnea Rate (beats per minute): 91 Rhythm: normal sinus Findings: no acute ischemic change, no ectopy ED Course 2057: The patient was evaluated in room B04B. A complete history and physical exam was performed. 2142: Ordered Duoneb 3 ml INH. 2158: I discussed the patients case with Dr. Zamudio, [facility] Hospitalist. He understands the patients condition and agrees to accept the patient. The patient will be further evaluated. 2213: I reevaluated the patient and updated him on his results. He reports no chest pain. I discussed the patient's treatment plan and he agrees. The patient will be further evaluated. Medical Decision The patient is a 77 year old male who presents to the ED with complaints of worsening shortness of breath that began two days ago. Differential diagnoses considered include exacerbation of COPD, bronchitis, pneumonia, anemia, electrolyte imbalance, and PR. There is no leukocytosis or concerning anemia. No significant electrolyte abnormality or kidney failure. EKG shows a normal sinus rhythm, no acute ischemia. Chest film shows some emphysema-like changes, no pneumonia, pneumothorax or mediastinal widening. Cardiac enzyme testing times one does show a very slight troponin elevation. The patient presents with dyspnea, his symptoms worsen with any exertion. He denies chest pain. He does have cardiac risk factors. With the elevation to his troponin, with the dyspnea on exertion, further cardiac workup was felt warranted. The caser has been involved. The on-call hospitalist was consulted. Medication Reconcilliation Current Medication List: was personally reviewed by me Blood Pressure Screening Patient's blood pressure: Elevated blood pressure Blood pressure disposition: Elevated BP felt to be situational Consults Time Called: 2158 Consulting Physician: Dr. Zamudio, [facility] Hospitalist Returned Call: 2158 I discussed the patients case with Dr. Zamudio [facility] Hospitalist. He understands the patient's condition and agrees to accept the patient. The patient will be further evaluated. Impression Primary Impression: SOB (shortness of breath) Additional Impression: Troponin level elevated Scribe Attestation The scribe's documentation has been prepared under my direction and personally reviewed by me in its entirety. I confirm that the note above accurately reflects all work, treatment, procedures, and medical decision making performed by me. Departure Information Dispostion Being Evaluated By Hospitalist Referrals Maribell Worrell, NicoN.Felicitas (PCP) Patient Instructions My [facility] Problem Qualifiers
[2017-08-27] MEDS ORDERED: CLINDAMYCIN HCL 150 MG CAP PO ONE (22:30)
[2017-08-27] MEDS ORDERED: OXYCODONE IR HOME PACK PO ONE (22:30)
[2017-08-27] MEDS ORDERED: ALUMINUM/MAGNESIUM/SIMETH (MAALOX MAX) 30 ML UDC PO PRN (23:00)
[2017-08-27] MEDS ORDERED: MAGNESIUM HYDROXIDE SUSP 30 ML UDC PO PRN (23:00)
[2017-08-27] MEDS ORDERED: BusPIRone 15 MG TAB PO PRN (23:00)
[2017-08-27] MEDS ORDERED: ONDANSETRON INJ 2 MG/ML 2 ML VIAL IV PRN (23:00)
[2017-08-27] MEDS ORDERED: NITROGLYCERIN 0.4 MG SL PER TAB CHARGE SL PRN (23:00)
[2017-08-27] MEDS ORDERED: ACETAMINOPHEN 325 MG TAB PO PRN (23:00)
[2017-08-27] MEDS ORDERED: POLYETHYLENE (MIRALAX) 17 GM PACK PO PRN (23:00)
[2017-08-27] MEDS ORDERED: MoRPHine SULFATE 2 MG/ML CARP IV PRN (23:00)
[2017-08-27 23:37] VITALS: BP 142/76; PULSE 96; TEMP 36.5; O2SAT 97; BMI 22.4
--- NOTE | 2017-08-27 23:39 | History and Physical ---
History & Physical Date & Time of Service: Aug 27, 2017 at 23:29 Chief Complaint: Trouble Breathing,Sob Primary Care Physician: Maribell Worrell C.R.NNoelleP History of Present Illness Source: patient 77 y/o F Hx recent CVA without significant residuals, HTN, HPL, DM, COPD. Pt presents with 3 days progressive SOB. Denies a cough, fever, CP, n/v. Troponin found elevated in ER however, this corresponds to his baseline. Pt is not requiring 02 at time of admission. 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 5) Chronic troponin elevation (~0.05) 6) COPD 7) Depression 8) Grade I diastolic dysfunction on echo 2014 Surgical Problems: Lumbar discectomy Family History Cancer Diabetes mellitus Heart disease Hypertension Lung disease Social History Quit smoking 40 yrs ago - does not drink Smoking Status: Never Smoker Marital Status: Housing status: lives with family Occupational Status: unemployed Immunizations History of Influenza Vaccine: Yes Influenza Vaccine Date: Aug 14, 2009 History of Tetanus Vaccine?: Yes Tetanus Immunization Date: March 28, 2005 History of Pneumococcal: Yes Pneumococcal Date: Aug 28, 2009 History of Hepatitis B Vaccine: No Multi-Drug Resistant Organisms History of MDRO: No Allergies Coded Allergies: No Known Allergies (Verified , 08/27/17) Home Medications Scheduled Albuterol Hfa (Ventolin Hfa), 2-4 PUFFS INH Q6H Ascorbic Acid (Vitamin C), 500 MG PO DAILY Atorvastatin (Lipitor), 40 MG PO DAILY Budesonide/Formoterol Fumarate (Symbicort 160/4.5 Inhaler), 2 PUFFS INH BID Clopidogrel Bisulfate (Plavix), 75 MG PO QAM Dicyclomine HCl (Dicyclomine HCl), 20 MG PO BID Insulin Aspart (Novolog Penfill), UNITS SQ UD Insulin Glargine (Lantus Solostar), 30 UNITS SC QPM Levalbuterol Tartrate (Levalbuterol Tartrate Hfa), 1 PUFF INH Q6H Levothyroxine Sodium (Synthroid), 100 MCG PO DAILY Metoprolol Succinate (Metoprolol Succinate ER), 25 MG PO BID Multivitamin (Multivitamin), 1 TAB PO DAILY Pantoprazole (Protonix), 40 MG PO DAILY Polyethylene (Miralax), 17 GM PO DAILY Venlafaxine Hcl (Effexor Extended Rel), 150 MG PO DAILY Scheduled PRN Buspirone Hcl (Buspirone Hcl), 7.5 MG PO TID PRN for Anxiety Review of Systems Constitutional: No fever, No chills, No sweats Eyes: No worsening of vision ENT: No hearing loss, No unusual epistaxis, No nasal symptoms Respiratory: + shortness of breath, + dyspnea on exertion, + dyspnea at rest, No cough, No wheezing Cardiovascular: No chest pain, No orthopnea, No PND Abdomen: No pain, No nausea, No vomiting Musculoskeletal: No joint pain Genitourinary - Male: No hematuria, No dysuria Neurologic: No memory loss, No paralysis, No weakness Psychiatric: No depression symptoms Endocrine: No fatigue Hematologic / Lymphatic: No abnormal bleeding/bruising Integumentary: No rash Allergic / Immunologic: No environmental allergies Physical Exam Vital Signs Date Time Temp Pulse Resp B/P (MAP) Pulse Ox O2 Delivery O2 Flow Rate FiO2 08/27/17 22:36 91 18 123/79 98 Room Air 08/27/17 21:22 Room Air 08/27/17 21:12 94 08/27/17 21:00 Room Air 08/27/17 20:37 36.8 104 16 147/76 93 Room Air General Appearance: WD/WN, no apparent distress Head: normocephalic Eyes: normal inspection, EOMI ENT: normal ENT inspection, hearing grossly normal, pharynx normal Neck: supple, no JVD Respiratory/Chest: chest non-tender, lungs clear, + pertinent finding ( Decreased air movement without crackles or wheezing) Cardiovascular: regular rate, rhythm, no edema, no gallop Abdomen/GI: normal bowel sounds, non tender, no organomegaly Back: normal inspection, no CVA tenderness, no muscle spasm Extremities/Musculoskelatal: normal inspection Neurologic/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: 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, no motor/sensory deficits, alert, oriented x 3 Skin: normal color Diagnostics Laboratory Results Results Past 24 Hours Test 08/27/17 21:00 08/27/17 21:27 Range/Units White Blood Count 7.27 4.8-10.8 K/uL Red Blood Count 5.05 4.7-6.1 M/uL Hemoglobin 13.9 14.0-18.0 g/dL Hematocrit 41.0 42-52 % Mean Corpuscular Volume 81.2 80-100 fL Mean Corpuscular Hemoglobin 27.5 25-34 pg Mean Corpuscular Hemoglobin Concent 33.9 32-36 g/dl Platelet Count 282 130-400 K/uL Mean Platelet Volume 9.0 7.4-10.4 fL Neutrophils (%) (Auto) 64.7 % Lymphocytes (%) (Auto) 19.5 % Monocytes (%) (Auto) 11.7 % Eosinophils (%) (Auto) 3.4 % Basophils (%) (Auto) 0.6 % Neutrophils # (Auto) 4.70 1.4-6.5 K/uL Lymphocytes # (Auto) 1.42 1.2-3.4 K/uL Monocytes # (Auto) 0.85 0.11-0.59 K/uL Eosinophils # (Auto) 0.25 0-0.5 K/uL Basophils # (Auto) 0.04 0-0.2 K/uL RDW Standard Deviation 42.2 36.4-46.3 fL RDW Coefficient of Variation 14.2 11.5-14.5 % Immature Granulocyte % (Auto) 0.1 % Immature Granulocyte # (Auto) 0.01 0.00-0.02 K/uL Sodium Level 141 136-145 mmol/L Potassium Level 3.9 3.5-5.1 mmol/L Chloride Level 105 98-107 mmol/L Carbon Dioxide Level 31 21-32 mmol/L Anion Gap 5.0 3-11 mmol/L Blood Urea Nitrogen 16 7-18 mg/dl Creatinine 1.22 0.60-1.40 mg/dl Est Creatinine Clear Calc Drug Dose 52.8 ml/min Estimated GFR () 66.3 Estimated GFR (Non- 57.2 BUN/Creatinine Ratio 12.9 10-20 Random Glucose 159 70-99 mg/dl Calcium Level 9.0 8.5-10.1 mg/dl Troponin I < 0.015 0-0.045 ng/ml Pro-B-Type Natriuretic Peptide 30 0-1800 pg/ml Bedside Troponin I 0.050 0-0.045 ng/ml CXR normal EKG NSR with a L axis Impression Assessment and Plan 77 y/o F Hx recent CVA without significant residuals, HTN, HPL, DM, COPD. Pt presents with 3 days progressive SOB. Denies a cough, fever, CP, n/v. Troponin found elevated in ER however, this corresponds to his baseline. Pt is not requiring 02 at time of admission. 1) COPD exacerbation - Duonebs, PRN albuterol, prednisone provided. Will reassess AM 2) Elevated trop - corresponds to baseline - was worked up in 2015 - no WMAs on echo at that time - do not see need for immediate frther w/u unless trop increases 3) recent CVA - remains on Plavix and ASA' 4) DM - placed on SS 5) HTN/HPL - cont Lipitor, Toprol. Full code - Lovenox prophylaxis Total time for this admit including review of labs, meds, imaging, records - discussion with pt and ER attending - 33 min Level of Care Telemetry Resuscitation Status FULL RESUSCITATION VTE Prophylaxis VTE Risk Assessment Done? Y/N: Yes Risk Level: Moderate Given or contraindicated: Enoxaparin (Lovenox)SQ
[2017-08-27] MEDS ORDERED: LEVALBUTEROL 1.25MG/0.5ML NEB INH PRN (23:45)
[2017-08-27] MEDS ORDERED: IV FLUIDS COMPLETED PRN (23:45)
[2017-08-28] VITALS (7 sets, daily range): BP systolic 111–161; BP diastolic 53–83; PULSE 88–104; TEMP 36.4–37; O2SAT 92–97
[2017-08-28 00:11] LABS: PROTHROMBIN TIME (PATIENT) 10.6 SECONDS (9.0-12.0)
[2017-08-28] MEDS: METHYLPREDNISOLONE IV 40 MG in SYRINGE 0 ML IV SCH ×2 (00:15→06:10)
[2017-08-28] MEDS: INSULIN ASPART 100 UNITS/ML 3 ML PEN SC SCH ×4 (05:11→20:42)
[2017-08-28] MEDS ORDERED: NURSING VERBAL MED ORDER ONE (05:15)
[2017-08-28] MEDS ORDERED: INSULIN ASPART 100 UNITS/ML 3 ML PEN SC ONE (05:30)
[2017-08-28] MEDS: LEVOTHYROXINE 100 MCG TAB PO SCH (06:09)
[2017-08-28] MEDS ORDERED: ALBUT/IPRATROP 3MG/0.5MG NEB 3 ML VIAL INH SCH (08:00)
[2017-08-28] MEDS: VENLAFAXINE HCL XR 150 MG CAPXR PO SCH (08:27)
[2017-08-28] MEDS: POLYETHYLENE (MIRALAX) 17 GM PACK PO SCH (08:28)
[2017-08-28] MEDS: BUDESONIDE/FORMOTEROL FUMARATE 160/4.5 60 PUFFS/INHALER INH SCH ×2 (08:28→21:24)
[2017-08-28] MEDS: METOPROLOL SUCC 25MG EXT REL TAB PO SCH ×2 (08:28→21:24)
[2017-08-28] MEDS: ATORVASTATIN 40 MG TAB PO SCH (08:28)
[2017-08-28] MEDS: CLOPIDOGREL BISULFATE 75 MG TAB PO SCH (08:28)
[2017-08-28] MEDS: DICYCLOMINE HCL 20 MG TAB PO SCH ×2 (08:28→21:24)
[2017-08-28] MEDS: ASPIRIN 81 MG ECTAB PO SCH (08:28)
[2017-08-28] MEDS: PANTOprazole SOD 40 MG TAB PO SCH (08:29)
[2017-08-28] MEDS: ENOXAPARIN 40 MG/0.4 ML SYR SC SCH (08:29)
[2017-08-28] MEDS ORDERED: LORAZEPAM 0.5 MG TAB PO STA (08:48)
[2017-08-28] MEDS ORDERED: LORAZEPAM 0.5 MG TAB PO PRN (11:15)
[2017-08-28] MEDS ORDERED: PHARMACY GLYCEMIC MGMT CONSULT PRN (13:03)
[2017-08-28] MEDS ORDERED: INSULIN GLARGINE SOLOSTAR 100 UNITS/ML 3 ML PEN SC ONE (13:45)
--- NOTE | 2017-08-28 14:03 | Pharmacy Progress Note ---
Glycemic Control Intl Consult Date of Service Aug 28, 2017. Scope Glycemic Pharmacist consulted by Dr Quiroz on 08/28/17 for glycemic control and to write orders per [facility] inpatient glycemic control protocol Objective Weight (Kilograms): 69.700 Accuchecks BSG (last 24hrs): Test 08/27/17 21:00 08/28/17 04:52 08/28/17 07:04 08/28/17 11:29 Random Glucose 159 mg/dl (70-99) Bedside Glucose 369 mg/dl (70-99) 344 mg/dl (70-99) 398 mg/dl (70-99) Laboratory Data (last 24hrs) HbA1c 9.6% on 06/07/17 Recent Pertinent Medications Outpatient Anti-diabetic Regimen: * Lantus 30 units SQ PM * NovoLog with meals {fixed dose} + SSI * NovoLog 10 units with breakfast, 15 units with lunch, & 15 units with dinner * Sliding Scale goal, 90-130 mg/dl with SF = 45 mg/dl/unit The patient is currently receiving: * Basal insulin: Lantus 30 units every 24 hours --> to start * Correctional Insulin: Novolog Correction per scale ACHS Goal Range: Low 120 mg/dL - High 160 mg/dL Correction Factor: 40 mg/dL/unit * Prandial insulin: Per carb ratio of 1 unit per -- grams CHO consumed Risk Factors for Insulin Resistance: * Steroids Assessment & Plan ASSESSMENT: * 77yo T2DM male with suboptimal control as an outpatient. Recent A1c is above goal at 9.6%. Pt follows with [facility] Endocrinology as an outpatient * Pt with sustained SEVERE hyperglycemia while admitted secondary to: steroids & insulin deficiency * Basal insulin dose was missed last evening, outpatient dose of Lantus is ordered but it is starting 08/28/17. Last dose of Lantus was administered PM. * Additionally patient is not ordered a carb ratio with current orders. Pt administers NovoLog for CHO coverage as an outpatient. Steroids have their most profound effect on post-prandial hyperglycemia therefore aggressive CF, CR warranted * BSGs since admission: 159, 369, 344, 398 * AM fasting (344 mg/dl) is elevated d/t missed dose of basal insulin 08/27 & steroids * Post-prandial BSGs (398 mg/dl) are elevated d/t no carb ratio ordered and steroids * Steroids changed from Solumedrol 40mg IV Q6hrs to Prednisone 20mg PO BIDM --> this step down should yield improvement in BSGs PLAN FOR INPATIENT GLYCEMIC CONTROL: stress 2 outpatient dose (70 units/day) for steroids and titrate based on BSG trends and step down in steroid dosing. * Basal insulin * Lantus 45 units SQ x 1 dose ANA MARIA. This is outpatient dose of 30 units + half of missed dose last evening, then, * Resume Lantus 30 units SQ HS on 08/29/17 PM * Bolus insulin * NovoLog per scale ACHS or Q6hrs while NPO. Additional checks + coverage at 0000 & 0400 for sustained hyperglycemia * Goal Range: Low 120 mg/dL - High 160 mg/dL * Correction Factor: 20 mg/dL/unit * Nutritional / Prandial insulin per carb ratio of 1 unit per 6 grams CHO consumed * Please note that the plan above was derived based on current level of insulin resistance and hospital stress. These recommendations are appropriate for inpatient admission only. Plan of care upon discharge will need to be reassessed to avoid potential outpatient hypo/hyperglycemia. Thank you.
--- NOTE | 2017-08-28 17:03 | Family Medicine Progress Note ---
Progress Note Date of Service Aug 28, 2017. Subjective Pt evaluation today including: conversation w/ patient, physical exam, chart review, lab review Pt describes feeling much better. Pt denies SOB, CP, syncope or presyncope Pt does report having panic attacks, feeling lots of anxiety Constitutional: No fever, No chills, No sweats Respiratory: No cough, No sputum, No wheezing, No shortness of breath, No dyspnea on exertion Cardiovascular: No chest pain, No orthopnea, No edema, No claudication, No palpitations Abdomen: No nausea, No vomiting, No diarrhea, No constipation Psychiatric: + anxiety Medications Current Inpatient Medications Medications (Trade) Dose Ordered Sig/Rose Mary Route Start Time Stop Time Status Last Admin Dose Admin Atorvastatin Calcium (Lipitor Tab) 40 mg DAILY PO 08/28/17 09:00 09/27/17 08:59 08/28/17 08:28 40 MG Budesonide/ Formoterol Fumarate (Symbicort 160/ 4.5 Inh) 2 puffs BID INH 08/28/17 09:00 09/27/17 08:59 08/28/17 08:28 2 PUFFS Clopidogrel Bisulfate (plAVix TAB) 75 mg QAM PO 08/28/17 09:00 09/27/17 08:59 08/28/17 08:28 75 MG Dicyclomine HCl (Bentyl Tab) 20 mg BID PO 08/28/17 09:00 09/27/17 08:59 08/28/17 08:28 20 MG Insulin Glargine (Lantus Solostar Pen) 30 units QPM SC 08/28/17 21:00 09/27/17 20:59 Future hold Levothyroxine Sodium (Synthroid Tab) 100 mcg DAILYBB PO 08/28/17 06:00 09/27/17 05:59 08/28/17 06:09 100 MCG Metoprolol Succinate (Toprol Xl Tab) 25 mg BID PO 08/28/17 09:00 09/27/17 08:59 08/28/17 08:28 25 MG Pantoprazole Sodium (Protonix Tab) 40 mg DAILY PO 08/28/17 09:00 09/27/17 08:59 08/28/17 08:29 40 MG Polyethylene (Miralax Powder Packet) 17 gm DAILY PO 08/28/17 09:00 09/27/17 08:59 08/28/17 08:28 17 GM Venlafaxine HCl (effeXOR EXTENDED REL CAP) 150 mg DAILY PO 08/28/17 09:00 09/27/17 08:59 08/28/17 08:27 150 MG Buspirone HCl (BusPAR TAB) 7.5 mg TID PRN PO 08/27/17 23:00 09/26/17 22:59 Enoxaparin Sodium (Lovenox Inj) 40 mg Q24H SC 08/28/17 09:00 09/27/17 08:59 08/28/17 08:29 40 MG Acetaminophen (Tylenol Tab) 650 mg Q4H PRN PO 08/27/17 23:00 09/26/17 22:59 Al Hydrox/Mg Hydrox/Simethicone (Maalox Max Susp) 15 ml Q4H PRN PO 08/27/17 23:00 09/26/17 22:59 08/28/17 08:26 15 ML Magnesium Hydroxide (Milk Of Magnesia Susp) 30 ml Q12H PRN PO 08/27/17 23:00 09/26/17 22:59 Ondansetron HCl (Zofran Inj) 4 mg Q6H PRN IV 08/27/17 23:00 09/26/17 22:59 08/28/17 10:19 4 MG Nitroglycerin (Nitrostat Tab) 0.4 mg UD PRN SL 08/27/17 23:00 09/26/17 22:59 Morphine Sulfate (MoRPHine SULFATE INJ) 2 mg Q30M PRN IV 08/27/17 23:00 09/10/17 22:59 Aspirin (Ecotrin Tab) 81 mg QAM PO 08/28/17 09:00 09/27/17 08:59 08/28/17 08:28 81 MG Polyethylene (Miralax Powder Packet) 17 gm DAILY PRN PO 08/27/17 23:00 09/26/17 22:59 Insulin Aspart (novoLOG ASPART) SLIDING SCALE G... ACHS SC 08/28/17 07:00 09/27/17 06:59 08/28/17 12:03 6 UNITS Levalbuterol (Xopenex 1.25MG/ 0.5ML Neb) 1.25 mg Q4H PRN INH 08/27/17 23:45 09/26/17 23:44 Miscellaneous (Iv Fluids Completed) 1 ea PRN PRN N/A 08/27/17 23:45 08/27/18 23:44 Lorazepam (Ativan Tab) 0.5 mg QD@08 PRN PO 08/28/17 11:15 09/27/17 11:14 Prednisone (PredniSONE TAB) 20 mg BIDM PO 08/28/17 16:45 09/27/17 16:44 Miscellaneous Information (Consult Glycemic Management Pharmacy) 1 ea UD PRN N/A 08/28/17 13:03 09/27/17 13:02 Insulin Aspart (novoLOG ASPART) SLIDING SCALE G... TODAY@0000,0400 [place] 08/29/17 00:00 08/29/17 04:01 Objective Vital Signs 08/27/17 21:00 Red Blood Count 5.05, Mean Corpuscular Volume 81.2, Mean Corpuscular Hemoglobin 27.5, Mean Corpuscular Hemoglobin Concent 33.9, Mean Platelet Volume 9.0, Neutrophils (%) (Auto) 64.7, Lymphocytes (%) (Auto) 19.5, Monocytes (%) (Auto) 11.7, Eosinophils (%) (Auto) 3.4, Basophils (%) (Auto) 0.6, Neutrophils # (Auto ) 4.70, Lymphocytes # (Auto) 1.42, Monocytes # (Auto) 0.85, Eosinophils # (Auto ) 0.25, Basophils # (Auto) 0.04 08/27/17 21:00 Test 08/27/17 21:00 08/27/17 21:27 08/28/17 11:29 08/28/17 14:01 White Blood Count 7.27 K/uL (4.8-10.8) Red Blood Count 5.05 M/uL (4.7-6.1) Hemoglobin 13.9 g/dL (14.0-18.0) Hematocrit 41.0 % (42-52) Mean Corpuscular Volume 81.2 fL (80-100) Mean Corpuscular Hemoglobin 27.5 pg (25-34) Mean Corpuscular Hemoglobin Concent 33.9 g/dl (32-36) Platelet Count 282 K/uL (130-400) Mean Platelet Volume 9.0 fL (7.4-10.4) Neutrophils (%) (Auto) 64.7 % Lymphocytes (%) (Auto) 19.5 % Monocytes (%) (Auto) 11.7 % Eosinophils (%) (Auto) 3.4 % Basophils (%) (Auto) 0.6 % Neutrophils # (Auto) 4.70 K/uL (1.4-6.5) Lymphocytes # (Auto) 1.42 K/uL (1.2-3.4) Monocytes # (Auto) 0.85 K/uL (0.11-0.59) Eosinophils # (Auto) 0.25 K/uL (0-0.5) Basophils # (Auto) 0.04 K/uL (0-0.2) RDW Standard Deviation 42.2 fL (36.4-46.3) RDW Coefficient of Variation 14.2 % (11.5-14.5) Immature Granulocyte % (Auto) 0.1 % Immature Granulocyte # (Auto) 0.01 K/uL (0.00-0.02) Prothrombin Time 10.6 SECONDS (9.0-12.0) Prothromb Time International Ratio 1.0 (0.9-1.1) Anion Gap 5.0 mmol/L (3-11) Est Creatinine Clear Calc Drug Dose 52.8 ml/min Estimated GFR () 66.3 Estimated GFR (Non- 57.2 BUN/Creatinine Ratio 12.9 (10-20) Calcium Level 9.0 mg/dl (8.5-10.1) Pro-B-Type Natriuretic Peptide 30 pg/ml (0-1800) Bedside Troponin I 0.050 ng/ml (0-0.045) Bedside Glucose 398 mg/dl (70-99) Troponin I < 0.015 ng/ml (0-0.045) Physical Exam General Appearance: WD/WN, + mild distress Neck: supple, no adenopathy, thyroid normal Respiratory/Chest: chest non-tender, lungs clear, normal breath sounds, no respiratory distress, no accessory muscle use Cardiovascular: regular rate, rhythm, no edema, no gallop, no JVD, no murmur Abdomen: normal bowel sounds, non tender, soft, no organomegaly, no pulsatile mass Neurologic/Psychiatric: alert, normal mood/affect, oriented x 3 Skin: normal color, warm/dry, no rash Laboratory Results 08/27/17 21:00 Red Blood Count 5.05, Mean Corpuscular Volume 81.2, Mean Corpuscular Hemoglobin 27.5, Mean Corpuscular Hemoglobin Concent 33.9, Mean Platelet Volume 9.0, Neutrophils (%) (Auto) 64.7, Lymphocytes (%) (Auto) 19.5, Monocytes (%) (Auto) 11.7, Eosinophils (%) (Auto) 3.4, Basophils (%) (Auto) 0.6, Neutrophils # (Auto ) 4.70, Lymphocytes # (Auto) 1.42, Monocytes # (Auto) 0.85, Eosinophils # (Auto ) 0.25, Basophils # (Auto) 0.04 08/27/17 21:00 Test 08/27/17 21:00 08/27/17 21:27 08/28/17 11:29 08/28/17 14:01 White Blood Count 7.27 K/uL (4.8-10.8) Red Blood Count 5.05 M/uL (4.7-6.1) Hemoglobin 13.9 g/dL (14.0-18.0) Hematocrit 41.0 % (42-52) Mean Corpuscular Volume 81.2 fL (80-100) Mean Corpuscular Hemoglobin 27.5 pg (25-34) Mean Corpuscular Hemoglobin Concent 33.9 g/dl (32-36) Platelet Count 282 K/uL (130-400) Mean Platelet Volume 9.0 fL (7.4-10.4) Neutrophils (%) (Auto) 64.7 % Lymphocytes (%) (Auto) 19.5 % Monocytes (%) (Auto) 11.7 % Eosinophils (%) (Auto) 3.4 % Basophils (%) (Auto) 0.6 % Neutrophils # (Auto) 4.70 K/uL (1.4-6.5) Lymphocytes # (Auto) 1.42 K/uL (1.2-3.4) Monocytes # (Auto) 0.85 K/uL (0.11-0.59) Eosinophils # (Auto) 0.25 K/uL (0-0.5) Basophils # (Auto) 0.04 K/uL (0-0.2) RDW Standard Deviation 42.2 fL (36.4-46.3) RDW Coefficient of Variation 14.2 % (11.5-14.5) Immature Granulocyte % (Auto) 0.1 % Immature Granulocyte # (Auto) 0.01 K/uL (0.00-0.02) Prothrombin Time 10.6 SECONDS (9.0-12.0) Prothromb Time International Ratio 1.0 (0.9-1.1) Anion Gap 5.0 mmol/L (3-11) Est Creatinine Clear Calc Drug Dose 52.8 ml/min Estimated GFR () 66.3 Estimated GFR (Non- 57.2 BUN/Creatinine Ratio 12.9 (10-20) Calcium Level 9.0 mg/dl (8.5-10.1) Pro-B-Type Natriuretic Peptide 30 pg/ml (0-1800) Bedside Troponin I 0.050 ng/ml (0-0.045) Bedside Glucose 398 mg/dl (70-99) Troponin I < 0.015 ng/ml (0-0.045) Assessment and Plan 77 yo male with recent CVA and PMH significant for HTN, HLD DM, COPD presents with three days of progressive SOB. Pt had an elevated troponin in the ED. Pt was admitted and treated for what appears to be a COPD exacerbation. Pt was given 40 mg Solu-Medrol. By morning rounds, patients condition was improved. Exam was unremarkable for SOB, wheezing or cough Reviewed patient's Troponin in the ED in conjunction with the following risk factors. Used ELLI risk calculator Pt had a ELLI score of 4, which correlates with 20% risk at 14 days of: all- cause mortality, new or recurrent AL, or severe recurrent ischemia requiring urgent revascularization. Further cardio workup was seen prudent-->Dobutamine stress ECHO was ordered for tomorrow COPD exacerbation Duonebs PRN albuterol 40 mg Solu-Medrol IV in the ED Pt switched to 40 mg PO prednisone Elevated trop Trop X3: .050, <.015, <.015 EKG--NSR, rate of 90 Panic attacks/Anxiety Continue Buspar Pt prescribed Ativan .5mg Recent CVA Continue Plavix and ASA' DM Glycemic consult ordered HTN/HPL cont Lipitor, Toprol. DVT ppx: Enoxaparin
[2017-08-28] MEDS ORDERED: INSULIN GLARGINE SOLOSTAR 100 UNITS/ML 3 ML PEN SC SCH (21:00)
[2017-08-29] VITALS: O2SAT 94
[2017-08-29] MEDS: INSULIN ASPART 100 UNITS/ML 3 ML PEN SC SCH ×4 (00:05→12:08)
[2017-08-29 04:31] VITALS: BP 108/52; PULSE 88; TEMP 36.4; O2SAT 92
[2017-08-29] MEDS: LEVOTHYROXINE 100 MCG TAB PO SCH (06:15)
[2017-08-29 06:42] LABS: HEMATOCRIT 38.9 % (42-52); MEAN CELL VOLUME 80.5 fL (80-100); MEAN CORPUSCULAR HEMOGLOBIN 26.7 pg (25-34); MEAN CORPUSCULAR HGB CONC 33.2 g/dl (32-36); MEAN PLATELET VOLUME 9.4 fL (7.4-10.4); PLATELET COUNT 279 K/uL (130-400); RED BLOOD COUNT 4.83 M/uL (4.7-6.1); WHITE BLOOD COUNT 18.06 K/uL (4.8-10.8)
[2017-08-29 07:17] LABS: BUN/CREATININE RATIO 20.8 (10-20); CALCIUM 9.4 mg/dl (8.5-10.1); CREATININE 1.18 mg/dl (0.60-1.40); POTASSIUM 4.6 mmol/L (3.5-5.1)
[2017-08-29] MEDS ORDERED: INSULIN GLARGINE SOLOSTAR 100 UNITS/ML 3 ML PEN SC ONE (07:30)
[2017-08-29 07:38] VITALS: BP 114/53; PULSE 80; TEMP 36.6; O2SAT 95
--- NOTE | 2017-08-29 08:11 | Family Medicine Progress Note ---
Progress Note Date of Service Aug 29, 2017. Assessment and Plan 77M here for progressive SOB and elevated troponin in ED COPD exac -Duonebs -albuterol PRN -Prednisone PO 40mg Elev troponins, chronically (~0.05) -EKG showed Normal sinus rhythm with Left axis deviation. When compared with ECG of 12-APR-2017 No significant change was found. -Due to review of patient's ELLI score of 4, which correlates with 20% risk at 14 days of: all-cause mortality, new or recurrent PR, or severe recurrent ischemia requiring urgent revascularization, cardio workup ordered-->Dobutamine stress ECHO done today is negative for ischemia or structural abnormalities, DM -managed with insulin, on a sliding scale. 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
[2017-08-29 08:21] LABS: ESTIMATED AVERAGE GLUCOSE 229 mg/dl; HA1C FLAG Normal (Normal)
[2017-08-29] MEDS ORDERED: ATROPINE SULFATE 0.1 MG/ML 5ML SYR ONE (09:29)
[2017-08-29] MEDS ORDERED: DOBUTamine 500MG / 250ML D5W ONE (09:29)
[2017-08-29] MEDS ORDERED: METOPROLOL TARTRATE 1 MG/ML VIAL ONE (09:29)
[2017-08-29 10:42] VITALS: BP 126/83; PULSE 85; TEMP 36.6; O2SAT 95
--- NOTE | 2017-08-29 11:25 | DOBUTAMINE ECHO ---
*NOTICE TO RECEIVING LIBERTARIAN AGENCY This information is strictly Confidential and protected under [place] law. [place] law prohibits you from making any further disclosure of this information unless further disclosure is expressly permitted by the written consent of the person to whom it pertains or is authorized by law. A general authorization for the release of medical or other information is not sufficient for this purpose. Hospital accepts no responsibility if the information is made available to any other person, INCLUDING THE PATIENT. Interpretation Summary * Name: CARA VERA Study Date: 08/29/2017 08:33 AM BP: 125/58 mmHg * Patient Location: .2E\S\E207\S\1 HR: 83 * : 1940 (M/d/yyyy) Gender: Male Height: 72 in * Age: 77 yrs Ethnicity: CA Weight: 153 lb * Ordering Physician: Merrick Quiroz * Referring Physician: Self, Referred * Performed By: Sarah Krishna RDCS * * Reason For Study: TROPONIN .050, chao score of 4 * BSA: 1.9 m2 * -- Conclusions -- * Dobutamine Stress Echo: * 1. Negative Dobutamine stress echo for ischemia at 98 % MPHR. * 2. Negative Dobutamine ECG for ischemia at 98 % MPHR. * 3. Appropriate blood pressure response. * 4. No arrhythmia. * 5. No chest pain reported. * Echo: * 1. Normal left ventricular size and systolic function. EF 60-65%. No regional wall motion abnormalities. Mild concentric left ventricular hypertrophy. Type 1 diastolic dysfunction. * 2. Mild mitral regurgitation. Procedure Details * DOBUTAMINE ECHO, CPT#85440 Left Ventricle * The left ventricle is normal in size. * There is mild concentric left ventricular hypertrophy. * Left ventricular systolic function is normal. * The left ventricular ejection fraction increases normally with stress. The left ventricular end-systolic cavity size reduces post-stress (normal response). The left ventricular wall motion with stress is normal. * No regional wall motion abnormalities noted. * Resting wall motion: Normal. Stress wall motion: Appropriate increase in Left ventricular systolic function and decrease in cavity size. No stress induced segmental wall motion abnormalities. Right Ventricle * The right ventricle is normal in size and function. Atria * The left atrial size is normal. * Right atrial size is normal. * There is no evidence of atrial septal defect, but resolution does not allow assessment for a patent foramen ovale. Mitral Valve * The mitral valve leaflets appear normal. There is no evidence of stenosis, fluttering, or prolapse. * There is mild mitral regurgitation. Tricuspid Valve * The tricuspid valve is not well visualized, but is grossly normal. * There is no tricuspid stenosis. * There is trace tricuspid regurgitation. Aortic Valve * The aortic valve is trileaflet. * No hemodynamically significant valvular aortic stenosis. * No aortic regurgitation is present. Pulmonic Valve * The pulmonary valve is inadequately visualized, but the Doppler data is adequate for interpretation. * There is no significant pulmonary regurgitation. Great Vessels * The aortic root is normal size. * Ascending aorta of normal dimension * Normal pulmonary venous flow pattern. Normal IVC size and inspiratory collapse. Pericardium * There is no pericardial effusion. Stress Parameters * NSR at 76 bpm. * Stress ECG: No ST changes. No arrhythmias. * The stress portion of this study was personally supervised by the undersigned interpreting physician. * Rest heart rate was '83' BPM. * Rest blood pressure was '125/58' * Maximum heart rate achieved was 142 bpm. * Maximum heart rate was 98 % of maximum age-predicted heart rate. * Maximum blood pressure was '156/37' * Maximum Dobutamine infusion rate was '40' mcg/kg/min. * A total of .5 mg of intravenous Atropine was used to supplement Dobutamine for heart rate response. * Dobutamine infusion was terminated due to achieving target heart rate * A total of 10 mg of IV Metoprolol was administered to reverse Dobutamine-induced tachycardia. * The patient did not exhibit any symptoms during drug infusion. MMode 2D Measurements and Calculations IVSd 1.2 cm IVSs 1.7 cm LVIDd 3.8 cm LVIDs 2.4 cm LVPWd 1.2 cm LVPWs 2.0 cm IVS/LVPW 1.0 FS 36.9 % EDV(Teich) 62.4 ml ESV(Teich) 20.3 ml EF(Teich) 67.5 % EDV(cubed) 55.4 ml ESV(cubed) 13.9 ml EF(cubed) 74.8 % % IVS thick 40.3 % % LVPW thick 61.6 % LV mass(C)d 160.8 grams LV mass(C)dI 84.6 grams/m\S\2 LV mass(C)s 181.1 grams LV mass(C)sI 95.3 grams/m\S\2 SV(Teich) 42.1 ml SI(Teich) 22.2 ml/m\S\2 SV(cubed) 41.5 ml SI(cubed) 21.8 ml/m\S\2 Ao root diam 3.9 cm Ao root area 12.1 cm\S\2 LA dimension 2.8 cm asc Aorta Diam 3.2 cm LA/Ao 0.71 LVAd ap4 23.7 cm\S\2 LVLd ap4 7.3 cm EDV(MOD-sp4) 67.7 ml EDV(sp4-el) 65.4 ml LVAs ap4 13.8 cm\S\2 LVLs ap4 6.4 cm ESV(MOD-sp4) 28.2 ml ESV(sp4-el) 25.2 ml EF(MOD-sp4) 58.4 % EF(sp4-el) 61.5 % EDV(MOD-sp2) 86.0 ml ESV(MOD-sp2) 38.0 ml EF(MOD-sp2) 55.8 % SV(MOD-sp4) 39.5 ml SI(MOD-sp4) 20.8 ml/m\S\2 SV(MOD-sp2) 48.0 ml SI(MOD-sp2) 25.2 ml/m\S\2 SV(sp4-el) 40.2 ml SI(sp4-el) 21.1 ml/m\S\2 Doppler Measurements and Calculations MV E max keegan 72.1 cm/sec MV A max keegan 83.4 cm/sec MV E/A 0.86 MV dec time 0.23 sec Ao V2 max 103.4 cm/sec Ao max PG 4.3 mmHg Ao max PG (full) 0.25 mmHg LV V1 max PG 4.0 mmHg LV V1 max 100.3 cm/sec MR max keegan 507.2 cm/sec MR max PG 102.9 mmHg
[2017-08-29] MEDS: VENLAFAXINE HCL XR 150 MG CAPXR PO SCH (12:02)
[2017-08-29] MEDS: BUDESONIDE/FORMOTEROL FUMARATE 160/4.5 60 PUFFS/INHALER INH SCH (12:03)
[2017-08-29] MEDS: DICYCLOMINE HCL 20 MG TAB PO SCH (12:03)
[2017-08-29] MEDS: METOPROLOL SUCC 25MG EXT REL TAB PO SCH (12:03)
[2017-08-29] MEDS: ASPIRIN 81 MG ECTAB PO SCH (12:03)
[2017-08-29] MEDS: ATORVASTATIN 40 MG TAB PO SCH (12:03)
[2017-08-29] MEDS: PANTOprazole SOD 40 MG TAB PO SCH (12:04)
[2017-08-29] MEDS: CLOPIDOGREL BISULFATE 75 MG TAB PO SCH (12:04)
[2017-08-29] MEDS: POLYETHYLENE (MIRALAX) 17 GM PACK PO SCH (12:04)
[2017-08-29] MEDS: ENOXAPARIN 40 MG/0.4 ML SYR SC SCH (12:04)
[2017-08-29] MEDS ORDERED: PRD20 PO (14:39)
[2017-08-29 14:54] VITALS: Ht 182.9 cm; Wt 69.7 kg
--- NOTE | 2017-08-29 14:55 | Discharge Instructions ---
Discharge Instructions Date of Service Aug 29, 2017. Admission Reason for Admission: Copd Exacerbation,Troponin Level Elevated Discharge Discharge Diagnosis / Problem: Shortness of breath, Troponin Level Elevated Discharge Goals Goal(s): Decrease discomfort, Improve function, Increase independence, Improve disease control, Learn about illness, Therapeutic intervention Activity Recommendations Activity Limitations: as noted below Exercise/Sports Limitations: as tolerated May Resume Sexual Activity: when tolerated Shower/Bathe: no limitations Driving or Machine Use: no limitations . Instructions / Follow-Up Instructions / Follow-Up Mr. Falk, ranjan were admitted for shortness of breath and an elevated cardiac enzyme called troponins. We treated your shortness of breath with Duonebs and also steroids. You are going home on a short course of steroids to be taken by mouth, in order to help with symptoms. On your medication list coming in, I notice that you are on both ventolin ( albuterol) and xopenex (levalbuterol). These two drugs work in the same way and are not to be used together if at all possible. I recommend continuing one or the other, to be inhaled 1 puff every 6 hours as needed. Levalbuterol tends to have less side effects of jitteriness, etc, so I left this on your medication list. Otherwise, please continue taking all your other medications as scheduled. With regard to your elevated heart enzymes (troponins), we performed a stress test to ensure your heart is healthy - results of which came back NORMAL. Please follow up in office with your primary care practitioner within 1 week of discharge. Please also discuss your symptoms of anxiety, and make sure your medications are appropriately treating this. Thank you for allowing us to participate in your care. Current Hospital Diet Patient's current hospital diet: AHA Diet (Heart Healthy), Diabetes Type 2 Diet Discharge Diet Recommended Diet: Diabetes Type 2 Diet Pending Studies Studies pending at discharge: no Laboratory Results Hemoglobin A1c Test 08/29/17 06:01 Range/Units Estimated Average Glucose 229 mg/dl Hemoglobin A1c 9.6 H 4.5-5.6 % Lipid Panel Test 07/13/17 09:30 Range/Units Triglycerides Level 166 H 0-150 mg/dl Cholesterol Level 157 0-200 mg/dl HDL Cholesterol 44 mg/dl Cholesterol/HDL Ratio 3.6 LDL Cholesterol, Calculated 80 mg/dl Medical Emergencies . Who to Call and When: Medical Emergencies: If at any time you feel your situation is an emergency, please call 911 immediately. . Non-Emergent Contact Non-Emergency issues call your: Primary Care Provider . . "Provider Documentation" section prepared by Amaya Quiroz. . VTE Core Measure Inpt VTE Proph given/why not?: Enoxaparin (Lovenox)SQ
[2017-08-29 15:02] VITALS: BP 126/83; PULSE 85; TEMP 36.6; O2SAT 95
--- NOTE | 2017-08-29 15:28 | Discharge Summary ---
Discharge Summary Date of Service Aug 29, 2017. (Amaya Quiroz M.D.) Discharge Summary Admission Date: Aug 27, 2017 at 22:53 Discharge Date: Aug 29, 2017 Discharge Disposition: Home Principal Diagnosis: Shortness of Breath, elevated Troponins Immunizations: Have You Had Influenza Vaccine: Yes Influenza Vaccine Date: Aug 14, 2009 History of Tetanus Vaccine?: Yes Tetanus Immunization Date: March 28, 2005 History of Pneumococcal: Yes Pneumococcal Date: Aug 28, 2009 History of Hepatitis B Vaccine: No (Amaya Quiroz M.D.) Medication Reconciliation New Medications: Prednisone (Prednisone) 20 Mg Tab 20 MG PO BIDM for 4 Days, #6 TAB 40mg x 2 days 20mg x 2 days Continued Medications: Ascorbic Acid (Vitamin C) 500 Mg Tab 500 MG PO DAILY Atorvastatin (Lipitor) 40 Mg Tab 40 MG PO DAILY, TAB Budesonide/Formoterol Fumarate (Symbicort 160/4.5 Inhaler) 120 Puffs/ Aero 2 PUFFS INH BID RINSE MOUTH AFTER USE. Buspirone Hcl (Buspirone Hcl) 7.5 Mg Tab 7.5 MG PO TID PRN for Anxiety Clopidogrel Bisulfate (Plavix) 75 Mg Tab 75 MG PO QAM for 90 Days, #90 TAB 3 Refills Dicyclomine HCl (Dicyclomine HCl) 20 Mg Tab 20 MG PO BID Insulin Aspart (Novolog Penfill) 100 Unit/Ml Inj UNITS SQ UD 10 units with breakfast, 15 units with lunch and dinner PLUS Sliding scale per parameters; goal 90-130 mg/dl SF = 45 mg/dl/unit Insulin Glargine (Lantus Solostar) 100 Unit/Ml Inj 30 UNITS SC QPM, PEN Levalbuterol Tartrate (Levalbuterol Tartrate Hfa) 45 Mcg/Act Aer 1 PUFF INH Q6H Levothyroxine Sodium (Synthroid) 100 Mcg Tab 100 MCG PO DAILY, TAB Metoprolol Succinate (Metoprolol Succinate ER) 25 Mg Tabcr 25 MG PO BID Multivitamin (Multivitamin) Tab 1 TAB PO DAILY Pantoprazole (Protonix) 40 Mg Tab 40 MG PO DAILY, #30 TAB Polyethylene (Miralax) 17 Gm Pow 17 GM PO DAILY Venlafaxine Hcl (Effexor Extended Rel) 150 Mg Cap 150 MG PO DAILY, CAP Discontinued Medications: Albuterol Hfa (Ventolin Hfa) 200 Puffs/05555 Mcg Aers 2-4 PUFFS INH Q6H, #1 INHALER Discharge Exam Review of Systems: Constitutional: No fever, No chills Respiratory: No cough, No sputum, No wheezing, No shortness of breath Cardiovascular: No chest pain Abdomen: No pain, No nausea, No vomiting Psychiatric: + anxiety (pt reports yesterday feeling anxiety) Physical Exam: General Appearance: WD/WN, no apparent distress Eyes: normal inspection, EOMI Respiratory/Chest: chest non-tender, lungs clear, normal breath sounds, no respiratory distress, no accessory muscle use Cardiovascular: regular rate, rhythm, no edema, no gallop, no JVD Abdomen / GI: normal bowel sounds, non tender, soft Extremities: normal inspection, no calf tenderness, no pedal edema Neurologic/Psychiatric: alert, normal mood/affect, normal reflexes Skin: normal color, warm/dry, no rash (Amaya Quiroz M.D.) Hospital Course Reason for admission: 77 year old male here for progressive SOB and elevated troponin in ED Summary of hospital course: 08/27/17 - 08/29/17 Mr. Falk was admitted to the hospital for shortness of breath on the background of chronic respiratory failure, and also was found to have elevated troponin enzymes x1 to 0.05. Treatment for his shortness of breath included Duonebs, albuterol, and Solumedrol. We were going to send patient home on a prednisone taper, but patient refused saying that this medicine makes him jittery. He was made aware of the risks and benefits of treatment, verbalized understanding. The script for prednisone was sent to his pharmacy should he elect to take it. Otherwise, it appears his troponin has been chronically elevated in the past and that perhaps this is what caused the abnormal finding in the ED. Even so, a dobutamine stress test was done of his heart and was found to be normal. No further work up is indicated at this time. Lastly, patient was educated on inhaler use, and his medication list now only includes one short acting bronchodilator and Symbicort. Patient may or may not have been over using his albuterol or levalbuterol on presentation, which would have contributed to side effects. Pt does complain of anxiety for which he takes Buspirone, albeit two times a day. Pt was encouraged to discuss his anxiety treatment further with his primary care practitioner. No other changes were made to his medication list. We appreciate the opportunity to participate in Mr. Falk's care. Total Time Spent: Greater than 30 minutes This includes examination of the patient, discharge planning, medication reconciliation, and communication with other providers. (Amaya Quiroz M.D.) Resident Physician Supervision Note: I was present with Dr. Quiroz during the history and exam. I discussed the case with the resident and agree with the findings and plan as documented in the note. Any exceptions or clarifications are listed here: Upon my examination today, the patient was without complaints. Review the results of his dobutamine stress echocardiogram with him. He denies having any shortness of breath. In fact, in retrospect, he thinks the shortness of breath was improving as he arrived to the emergency department. Upon examination today, there is no wheezing rhonchi or rales. If there is an element of a COPD exacerbation, it is mild; his extended hospitalization was more due to the elevated cardiac enzymes. Agree with discharge today close clinical follow-up with his primary care physician. He will return to the emergency department for sudden or severe recurrence of symptoms including shortness of breath and her chest pain. Documented By: Ronnie Osullivan Total Time Spent: Less than 30 minutes (Ronnie Osullivan.,D.O.) Discharge Instructions Please refer to the electronic Patient Visit Report (Discharge Instructions) for additional information. (Amaya Quiroz M.D.) Additional Copies To Maribell Worrell C.RNoelleNEzio Resident Tracking Resident Involvement: Resident Care Provided Care Provided: Adult Hospital Medicine (Amaya Quiroz M.D.)
[2017-08-29 15:50] VITALS: BP 126/83; PULSE 82; TEMP 36.6; O2SAT 97
[2017-08-29] MEDS ORDERED: INSULIN GLARGINE SOLOSTAR 100 UNITS/ML 3 ML PEN SC SCH (21:00)
== END 2017-08-29 16:40 | disposition home or self-care (01) ==
LOC: C.EDB 20:32 → C.2E 22:53 → ENRESERV 23:00 → CANRESERV 23:04 → ENRESERV 23:06
PROVIDERS: ADMIT Internal Medicine; ATTEND Family Medicine
DX: J44.1 Chronic obstructive pulmonary disease with (acute) exacerbation (principal); R79.89 Other specified abnormal findings of blood chemistry; I10 Essential (primary) hypertension; E78.5 Hyperlipidemia, unspecified; E11.9 Type 2 diabetes mellitus without complications; E03.9 Hypothyroidism, unspecified; Z87.891 Personal history of nicotine dependence; Z79.4 Long term (current) use of insulin; Z79.899 Other long term (current) drug therapy; F32.9 Major depressive disorder, single episode, unspecified; Z86.73 Personal history of transient ischemic attack (TIA), and cerebral infarction without residual deficits

== ENCOUNTER → 2017-10-13 | Outpatient (CLI) | payer BC ==
[~2017-10-13] MED LIST changes: +ATOR-24 PO; +EFFSR/75 PO; +HYCUDL5 PO; -LPT20 PO; +METO5TAB2 PO; +ONDA4TAB9 PO; +PANT1TAB3 PO; -PANT40TA PO; +PLAVIX75 PO; -PLV75 PO; +PRD20 PO; +PRVHFAIN INH; +SULF800T23 PO; -VNTHFA/IN INH; +[UNRECOGNIZED DRUG - CODE]; -[UNRECOGNIZED DRUG - CODE] INJ
== END | disposition home or self-care (01) ==
LOC: C.PATHSPEC 10:37
PROVIDERS: ATTEND Nurse Practitioner
DX: R31.9 Hematuria, unspecified (principal)

== ENCOUNTER → 2017-10-13 | Outpatient (CLI) | payer BC ==
--- NOTE | 2017-10-13 14:39 | DIAGNOSTIC IMAGING REPORT ---
KUB CLINICAL HISTORY: HEMATURIA flank pain COMPARISON STUDY: 12/28/2007 FINDINGS: Findings of an extensive decompression laminectomy and fusion of the lumbar spine. No significant nephrocalcinosis. Several pelvic vascular calcifications. Nonobstructive bowel pattern. IMPRESSION: No acute process. The above report was generated using voice recognition software. It may contain grammatical, syntax or spelling errors. Electronically signed by: Kwesi Powell M.D. 10/13/2017 2:38 PM Dictated Date/Time: 10/13/2017 2:37 PM
[2017-10-13 17:30] LABS: URINE EPITHELIAL CELL AUTO 20-30 /lpf (0-5); ZZInitiateTest Complete
[2017-10-13 17:35] LABS: MANUAL MICROSCOPIC REQUIRED? NO; REVIEW REQ? YES
== END | disposition home or self-care (01) ==
LOC: C.RADPV 14:22
PROVIDERS: ATTEND Nurse Practitioner
DX: R31.9 Hematuria, unspecified (principal)

== ENCOUNTER 2017-10-16 20:50 | Emergency (ER) | payer BC ==
[~2017-10-16] VITALS: Ht 182.9 cm; Wt 72.7 kg
[~2017-10-16 20:50] MED LIST changes: -EFFSR/75 PO; -HYCUDL5 PO; -METO5TAB2 PO; -ONDA4TAB9 PO; -PRVHFAIN INH; -[UNRECOGNIZED DRUG - CODE]
[2017-10-16 21:05] VITALS: TEMP 36.7; Ht 182.9 cm; Wt 72.7 kg
[2017-10-16] MEDS ORDERED: ONDANSETRON INJ 2 MG/ML 2 ML VIAL IV STA (21:17)
[2017-10-16] MEDS ORDERED: SODIUM CHLORIDE 0.9% 1000ML 1,000 ML IV STA (21:17)
[2017-10-16 21:33] VITALS: O2SAT 98
[2017-10-16 21:50] LABS: URINE APPEARANCE CLOUDY (CLEAR); URINE BILIRUBIN NEG (NEG); URINE COLOR ORANGE; URINE EPITHELIAL CELL AUTO 20-30 /lpf (0-5); URINE NITRITE NEG (NEG); URINE SPECIFIC GRAVITY 1.035 (1.000-1.030); UROBILINOGEN NEG (NEG)
[2017-10-16 21:51] LABS: MANUAL MICROSCOPIC REQUIRED? NO; REVIEW REQ? NO
[2017-10-16 22:17] LABS: BASO % 0.3 %; BASO ABS # 0.03 K/uL (0-0.2); COMPLETE YES; EOS % 1.7 %; HEMATOCRIT 40.2 % (42-52); IG% 0.2 %; LYMPH % 10.6 %; LYMPH ABS # 1.06 K/uL (1.2-3.4); MEAN CELL VOLUME 81.5 fL (80-100); MEAN CORPUSCULAR HEMOGLOBIN 27.2 pg (25-34); MEAN CORPUSCULAR HGB CONC 33.3 g/dl (32-36); MEAN PLATELET VOLUME 9.3 fL (7.4-10.4); MONO % 9.5 %; NEUT % 77.7 %; PLATELET COUNT 267 K/uL (130-400); RED BLOOD COUNT 4.93 M/uL (4.7-6.1); WHITE BLOOD COUNT 9.96 K/uL (4.8-10.8)
[2017-10-16] MEDS ORDERED: [UNRECOGNIZED DRUG - CODE] (22:25)
[2017-10-16] MEDS ORDERED: HYCUDL5 PO (22:25)
[2017-10-16] MEDS ORDERED: METO5TAB2 PO (22:25)
[2017-10-16] MEDS ORDERED: PRVHFAIN INH (22:25)
[2017-10-16] MEDS ORDERED: ONDA4TAB9 PO (22:25)
[2017-10-16] MEDS ORDERED: EFFSR/75 PO (22:25)
[2017-10-16 22:34] LABS: PROTHROMBIN TIME (PATIENT) 10.2 SECONDS (9.0-12.0)
--- NOTE | 2017-10-16 22:45 | DIAGNOSTIC IMAGING REPORT ---
CHEST ONE VIEW PORTABLE CLINICAL HISTORY: 77 years-old Male presenting with EVALUATE WEAKNESS. TECHNIQUE: PICC to COMPARISON: 08/27/2017. FINDINGS: Atherosclerosis of aortic arch. Tortuosity of the descending thoracic aorta. Cardiac silhouette normal in size. Lungs and pleural spaces clear. Osseous structures normal. Upper abdomen normal. IMPRESSION: 1. No acute cardiopulmonary disease. Electronically signed by: Wallace Baldwin M.D. 10/16/2017 10:43 PM Dictated Date/Time: 10/16/2017 10:43 PM
[2017-10-16] MEDS ORDERED: CEFTRIAXONE SOD INJ 1 GM ADDVIAL IV STA (22:52)
--- NOTE | 2017-10-16 22:55 | DIAGNOSTIC IMAGING REPORT ---
ABD/PELVIS WITHOUT FOR STONE CLINICAL HISTORY: 77 years-old Male presenting with hematuria, high blood sugar, anxious, abdominal pain. TECHNIQUE: Multidetector CT of the abdomen and pelvis was performed without the use of intravenous contrast. IV contrast: None. A dose lowering technique was used consistent with the principles of ALARA (as low as reasonably achievable). COMPARISON: 07/27/2015. CT DOSE (mGy.cm): The estimated cumulative dose is 273.75 mGy.cm. FINDINGS: Wheel Filler topogram: Unremarkable. Lung bases: Interval increase in tree-in-bud and randomly distributed solid nodularity in the right middle lobe, lingula, and posterior basal lower lobes. Normal heart size. No pericardial or pleural effusion. Liver: Normal morphology. Normal density. Biliary: No gross biliary ductal dilatation allowing for noncontrast technique. Normal gallbladder. Pancreas: Mild parenchymal atrophy. Spleen: Normal noncontrast appearance. Adrenal glands: Normal noncontrast appearance. Kidneys and ureters: Normal noncontrast appearance. No nephrolithiasis. No hydronephrosis. Normal ureters. Bladder: Normal. Pelvic organs: Prostate enlargement likely secondary to benign prostatic hyperplasia. Bowel: Limited diverticulosis of the descending and sigmoid colon. Mild stool burden in the right colon. The appendix is normal. No bowel obstruction. Peritoneal cavity: No free fluid or intraperitoneal gas. Lymph nodes: No gross lymphadenopathy allowing for noncontrast technique. Vasculature: Atherosclerosis of the normal caliber abdominal aorta. Abdominal wall: Small fat-containing umbilical hernia. Minimal infiltration of the subcutaneous fat of the upper abdomen, indeterminate and possibly related to medication administration. Bilateral fat-containing inguinal hernias. Musculoskeletal: Degenerative changes of the spine. IMPRESSION: 1. No nephrolithiasis or hydronephrosis. 2. Prostatomegaly. 3. Interval increase in tree-in-bud and randomly distributed nodules at the lung bases. This is most concerning for an infectious etiology. Given the chronicity, or typical mycobacterial infections such as mycobacterium avium intracellulare not excluded. Electronically signed by: Wallace Baldwin M.D. 10/16/2017 10:54 PM Dictated Date/Time: 10/16/2017 10:47 PM
[2017-10-16 22:58] LABS: ALKALINE PHOSPHATASE 110 U/L (45-117); ALT/SGPT 22 U/L (12-78); AST/SGOT 29 U/L (15-37); BLOOD UREA NITROGEN 13 mg/dl (7-18); BUN/CREATININE RATIO 10.4 (10-20); CALCIUM 9.5 mg/dl (8.5-10.1); CARBON DIOXIDE 26 mmol/L (21-32); CHLORIDE 103 mmol/L (98-107); CREATININE 1.27 mg/dl (0.60-1.40); GLUCOSE 250 mg/dl (70-99); POTASSIUM 3.9 mmol/L (3.5-5.1); SODIUM 138 mmol/L (136-145)
[2017-10-17] MEDS ORDERED: SULF800T23 PO (00:05)
[2017-10-17 00:10] VITALS: BP 154/78; PULSE 78; O2SAT 98
--- NOTE | 2017-10-17 02:16 | EMERGENCY ROOM VISIT NOTE ---
History Report prepared by Jody: Jud Hinson Under the Supervision of: Dr. Amauri Oates M.D. First contact with patient: 21:08 Chief Complaint: HYPOGLYCEMIA Stated Complaint: HIGH+LOW BLOOD SUGAR, ANXIETY, ABD PAIN History of Present Illness The patient is a 77 year old male who presents to the Emergency Room with complaints of persistent blood sugar complications that began a few days ago. The patient's daughter states that this morning the patient had a blood sugar of 57, causing him to have anxiety and not feel well. The patient had a cinnamon roll to try to raise his blood sugar, noting they went to denominational and when they rechecked his blood sugar it was in the 300's. The patient rechecked his blood sugar several hours later, after eating pasta with meat and jell-o, noting it was 50's again. The last time the patient checked his blood sugar, he had abdominal pain, a fever, chills, and sweating. The patient has had some dark stools recently after taking Pepto-Bismol, but no hematochezia. He notes that he had blood in his urine 2 weeks ago but that resolved. He then had symptoms again and saw his PCP 3 days ago and a urine test was concerning. He then had a prescription for Bactrim. He did not take this over the last few days but decided to start it today. He denies a history of prostate problems. The patient states a history of COPD, noting he is often wheezing. He also states a history of kidney stones. Pt denies LOC, headache, visual changes, neck pain, chest pain, breathing difficulties, nausea, vomiting, back pain, urinary symptoms, numbness, weakness , lymphadenopathy, rash, or other complaints. Source of History: patient Onset: few days ago Position: other (global) Symptom Intensity: Quality: other (blood sugar complications ) Timing: other (persistent) Associated Symptoms: + fevers, + chills, + diaphoresis, + melena, + urinary symptoms, No cough, No hematochezia, No diarrhea Review of Systems See HPI for pertinent positives and negatives. A total of ten systems were reviewed and were otherwise negative. Past Medical & Surgical Medical Problems: (1) Asthma (2) Bilateral pneumonia (3) Bronchitis (4) COPD exacerbation (5) Diabetes (6) Dyspnea (7) Pneumonia (8) Stroke-like symptoms Surgical Problems: (1) H/O lumbar discectomy Family History Cancer Diabetes mellitus Heart disease Hypertension Lung disease Social History Smoking Status: Never Smoker Alcohol Use: none Drug Use: none Marital Status: Housing Status: lives with family Occupation Status: retired Current/Historical Medications Scheduled Alprostadil (Vasodilator) (Edex), UD Ascorbic Acid (Vitamin C), 500 MG PO DAILY Atorvastatin (Lipitor), 40 MG PO DAILY Budesonide/Formoterol Fumarate (Symbicort 160/4.5 Inhaler), 2 PUFFS INH BID Clopidogrel Bisulfate (Plavix), 75 MG PO QAM Dicyclomine HCl (Dicyclomine HCl), 20 MG PO BID Insulin Aspart (Novolog Penfill), UNITS SQ UD Insulin Glargine (Lantus Solostar), 30 UNITS SC QPM Levothyroxine Sodium (Synthroid), 100 MCG PO DAILY Metoclopramide Hcl (Metoclopramide Hcl), 5 MG PO DAILYBB Metoprolol Succinate (Metoprolol Succinate ER), 25 MG PO BID Multivitamin (Multivitamin), 1 TAB PO DAILY Pantoprazole (Protonix), 40 MG PO DAILY Polyethylene (Miralax), 17 GM PO DAILY Sulfa/Trimethoprim (Bactrim Ds 800MG/160MG), 1 TAB PO BID Sulfamethoxazole-Trimethoprim (Bactrim Ds 800MG/160MG), 1 TAB PO BID Venlafaxine HCl (Venlafaxine HCl ER), 75 MG PO QDB Scheduled PRN Albuterol (Ventolin Hfa), 2 PUFFS INH Q4 PRN for SOB/Wheezing Buspirone Hcl (Buspirone Hcl), 7.5 MG PO TID PRN for Anxiety Hydrocodone/Homatropine (Hydromet 5-1.5 mg/5Ml), 5 ML PO BID PRN for Levalbuterol Tartrate (Levalbuterol Tartrate Hfa), 1 PUFF INH Q6H PRN for Shortness of Breath Ondansetron (Ondansetron HCl), 4 MG PO Q8 PRN for Nausea Allergies Coded Allergies: No Known Allergies (Verified , 10/16/17) Physical Exam Vital Signs Date Time Temp Pulse Resp B/P (MAP) Pulse Ox O2 Delivery O2 Flow Rate FiO2 10/17/17 00:10 78 18 154/78 98 10/16/17 23:10 90 20 156/85 97 Room Air 10/16/17 22:17 99 144/80 98 Room Air 10/16/17 21:35 103 10/16/17 21:33 98 Room Air 10/16/17 21:05 36.7 107 20 158/84 96 Room Air Physical Exam GENERAL: Awake, alert, well-appearing, in no distress HENT: Normocephalic, atraumatic. Oropharynx unremarkable. EYES: Normal conjunctiva. Sclera non-icteric. NECK: Supple. No nuchal rigidity. FROM. No JVD. RESPIRATORY: Clear to auscultation. CARDIAC: Tachycardic rate, normal rhythm. Extremities warm and well perfused. Pulses equal. ABDOMEN: Soft, non-distended. No tenderness to palpation. No rebound or guarding. No masses. RECTAL: Deferred. MUSCULOSKELETAL: Chest examination reveals no tenderness. The back is symmetrical on inspection without obvious abnormality. There is no CVA tenderness to palpation. No joint edema. LOWER EXTREMITIES: Calves are equal size bilaterally and non-tender. No edema. No discoloration. NEURO: Normal sensorium. No sensory or motor deficits noted. SKIN: No rash or jaundice noted. Medical Decision & Procedures ER Provider Diagnostic Interpretation: Radiology results as stated below per my review and radiologist interpretation: ABD/PELVIS WITHOUT FOR STONE CLINICAL HISTORY: 77 years-old Male presenting with hematuria, high blood sugar, anxious, abdominal pain. TECHNIQUE: Multidetector CT of the abdomen and pelvis was performed without the use of intravenous contrast. IV contrast: None. A dose lowering technique was used consistent with the principles of ALARA (as low as reasonably achievable). COMPARISON: 07/27/2015. CT DOSE (mGy.cm): The estimated cumulative dose is 273.75 mGy.cm. FINDINGS: Technical Sales Engineer topogram: Unremarkable. Lung bases: Interval increase in tree-in-bud and randomly distributed solid nodularity in the right middle lobe, lingula, and posterior basal lower lobes. Normal heart size. No pericardial or pleural effusion. Liver: Normal morphology. Normal density. Biliary: No gross biliary ductal dilatation allowing for noncontrast technique. Normal gallbladder. Pancreas: Mild parenchymal atrophy. Spleen: Normal noncontrast appearance. Adrenal glands: Normal noncontrast appearance. Kidneys and ureters: Normal noncontrast appearance. No nephrolithiasis. No hydronephrosis. Normal ureters. Bladder: Normal. Pelvic organs: Prostate enlargement likely secondary to benign prostatic hyperplasia. Bowel: Limited diverticulosis of the descending and sigmoid colon. Mild stool burden in the right colon. The appendix is normal. No bowel obstruction. Peritoneal cavity: No free fluid or intraperitoneal gas. Lymph nodes: No gross lymphadenopathy allowing for noncontrast technique. Vasculature: Atherosclerosis of the normal caliber abdominal aorta. Abdominal wall: Small fat-containing umbilical hernia. Minimal infiltration of the subcutaneous fat of the upper abdomen, indeterminate and possibly related to medication administration. Bilateral fat-containing inguinal hernias. Musculoskeletal: Degenerative changes of the spine. IMPRESSION: 1. No nephrolithiasis or hydronephrosis. 2. Prostatomegaly. 3. Interval increase in tree-in-bud and randomly distributed nodules at the lung bases. This is most concerning for an infectious etiology. Given the chronicity, or typical mycobacterial infections such as mycobacterium avium intracellulare not excluded. Electronically signed by: Wallace Baldwin M.D. 10/16/2017 10:54 PM ABD/PELVIS WITHOUT FOR STONE CLINICAL HISTORY: 77 years-old Male presenting with hematuria, high blood sugar, anxious, abdominal pain. TECHNIQUE: Multidetector CT of the abdomen and pelvis was performed without the use of intravenous contrast. IV contrast: None. A dose lowering technique was used consistent with the principles of ALARA (as low as reasonably achievable). COMPARISON: 07/27/2015. CT DOSE (mGy.cm): The estimated cumulative dose is 273.75 mGy.cm. FINDINGS: Technical Sales Engineer topogram: Unremarkable. Lung bases: Interval increase in tree-in-bud and randomly distributed solid nodularity in the right middle lobe, lingula, and posterior basal lower lobes. Normal heart size. No pericardial or pleural effusion. Liver: Normal morphology. Normal density. Biliary: No gross biliary ductal dilatation allowing for noncontrast technique. Normal gallbladder. Pancreas: Mild parenchymal atrophy. Spleen: Normal noncontrast appearance. Adrenal glands: Normal noncontrast appearance. Kidneys and ureters: Normal noncontrast appearance. No nephrolithiasis. No hydronephrosis. Normal ureters. Bladder: Normal. Pelvic organs: Prostate enlargement likely secondary to benign prostatic hyperplasia. Bowel: Limited diverticulosis of the descending and sigmoid colon. Mild stool burden in the right colon. The appendix is normal. No bowel obstruction. Peritoneal cavity: No free fluid or intraperitoneal gas. Lymph nodes: No gross lymphadenopathy allowing for noncontrast technique. Vasculature: Atherosclerosis of the normal caliber abdominal aorta. Abdominal wall: Small fat-containing umbilical hernia. Minimal infiltration of the subcutaneous fat of the upper abdomen, indeterminate and possibly related to medication administration. Bilateral fat-containing inguinal hernias. Musculoskeletal: Degenerative changes of the spine. IMPRESSION: 1. No nephrolithiasis or hydronephrosis. 2. Prostatomegaly. 3. Interval increase in tree-in-bud and randomly distributed nodules at the lung bases. This is most concerning for an infectious etiology. Given the chronicity, or typical mycobacterial infections such as mycobacterium avium intracellulare not excluded. Electronically signed by: Wallcae Baldwin M.D. 10/16/2017 10:54 PM Laboratory Results 10/16/17 21:55 Red Blood Count 4.93, Mean Corpuscular Volume 81.5, Mean Corpuscular Hemoglobin 27.2, Mean Corpuscular Hemoglobin Concent 33.3, Mean Platelet Volume 9.3, Neutrophils (%) (Auto) 77.7, Lymphocytes (%) (Auto) 10.6, Monocytes (%) (Auto) 9.5, Eosinophils (%) (Auto) 1.7, Basophils (%) (Auto) 0.3, Neutrophils # (Auto) 7.73, Lymphocytes # (Auto) 1.06, Monocytes # (Auto) 0.95, Eosinophils # (Auto) 0.17, Basophils # (Auto) 0.03 10/16/17 21:55 Test 10/16/17 21:40 10/16/17 21:55 10/16/17 23:48 Urine Color ORANGE Urine Appearance CLOUDY (CLEAR) Urine pH 5.0 (4.5-7.5) Urine Specific [place] 1.035 (1.000-1.030) Urine Protein 1+ (NEG) Urine Glucose (UA) 3+ (NEG) Urine Ketones NEG (NEG) Urine Occult Blood 3+ (NEG) Urine Nitrite NEG (NEG) Urine Bilirubin NEG (NEG) Urine Urobilinogen NEG (NEG) Urine Leukocyte Esterase TRACE (NEG) Urine WBC (Auto) 10-30 /hpf (0-5) Urine RBC (Auto) >30 /hpf (0-4) Urine Hyaline Casts (Auto) 0 /lpf (0-5) Urine Epithelial Cells (Auto) 20-30 /lpf (0-5) Urine Bacteria (Auto) NEG (NEG) White Blood Count 9.96 K/uL (4.8-10.8) Red Blood Count 4.93 M/uL (4.7-6.1) Hemoglobin 13.4 g/dL (14.0-18.0) Hematocrit 40.2 % (42-52) Mean Corpuscular Volume 81.5 fL (80-100) Mean Corpuscular Hemoglobin 27.2 pg (25-34) Mean Corpuscular Hemoglobin Concent 33.3 g/dl (32-36) Platelet Count 267 K/uL (130-400) Mean Platelet Volume 9.3 fL (7.4-10.4) Neutrophils (%) (Auto) 77.7 % Lymphocytes (%) (Auto) 10.6 % Monocytes (%) (Auto) 9.5 % Eosinophils (%) (Auto) 1.7 % Basophils (%) (Auto) 0.3 % Neutrophils # (Auto) 7.73 K/uL (1.4-6.5) Lymphocytes # (Auto) 1.06 K/uL (1.2-3.4) Monocytes # (Auto) 0.95 K/uL (0.11-0.59) Eosinophils # (Auto) 0.17 K/uL (0-0.5) Basophils # (Auto) 0.03 K/uL (0-0.2) RDW Standard Deviation 41.3 fL (36.4-46.3) RDW Coefficient of Variation 13.9 % (11.5-14.5) Immature Granulocyte % (Auto) 0.2 % Immature Granulocyte # (Auto) 0.02 K/uL (0.00-0.02) Prothrombin Time 10.2 SECONDS (9.0-12.0) Prothromb Time International Ratio 1.0 (0.9-1.1) Activated Partial Thromboplast Time 25.6 SECONDS (21.0-31.0) Partial Thromboplastin Ratio 1.0 Anion Gap 9.0 mmol/L (3-11) Est Creatinine Clear Calc Drug Dose 50.9 ml/min Estimated GFR () 63.2 Estimated GFR (Non- 54.5 BUN/Creatinine Ratio 10.4 (10-20) Calcium Level 9.5 mg/dl (8.5-10.1) Magnesium Level 2.0 mg/dl (1.8-2.4) Total Bilirubin 0.3 mg/dl (0.2-1) Direct Bilirubin mg/dl (0-0.2) Aspartate Amino Transf (AST/SGOT) 29 U/L (15-37) Alanine Aminotransferase (ALT/SGPT) 22 U/L (12-78) Alkaline Phosphatase 110 U/L (45-117) Troponin I < 0.015 ng/ml (0-0.045) Total Protein 8.1 gm/dl (6.4-8.2) Albumin 4.1 gm/dl (3.4-5.0) Lipase 145 U/L (73-393) Thyroid Stimulating Hormone (TSH) 1.190 uIu/ml (0.300-4.500) Chemistry Specimen Hemolysis Bedside Glucose 176 mg/dl (70-99) Laboratory results reviewed by me Medications Administered Medications (Trade) Dose Ordered Sig/Rose Mary Route Start Time Stop Time Status Last Admin Dose Admin Sodium Chloride 1,000 ml @ 125 mls/hr Q8H STAT IV 10/16/17 21:17 10/17/17 01:05 DC 10/16/17 21:17 125 MLS/HR Ondansetron HCl (Zofran Inj) 4 mg NOW STAT IV 10/16/17 21:17 10/16/17 21:19 DC 10/16/17 22:15 4 MG Ceftriaxone Sodium (Rocephin Inj) 1 gm NOW STAT IV 10/16/17 22:52 10/16/17 22:53 DC 10/16/17 22:52 1 GM ECG Indication: abdominal pain Rate (beats per minute): 99 Rhythm: normal sinus Findings: no acute ischemic change, left axis deviation, no ectopy ED Course 2107: The patient was evaluated in room C8. A complete history and physical exam was performed. 2116: Ordered Sodium Chloride 1000ml @ 125mls/hr IV and Zofran Inj 4mg IV. 2251: I reevaluated the patient, who was resting comfortably. 2252: Ordered Ceftriaxone Sodium 1gm IV. 2316:I Reevaluated the patient, who states he is feeling better. 0110: I reevaluated the patient. Discussed results and discharge instructions: He verbalized understanding and agreement. The patient is ready for discharge. Medical Decision Prior records/ancillary studies reviewed and summarized above. Nursing notes reviewed and agree them. Additional history obtained from family. The patient's history was concerning for blood sugar problems, urinary issues, and abdominal pain. Differential diagnosis: Etiologies such as UTI, renal colic, metabolic, infection, hypo/hyperglycemia, electrolyte abnormalities, cardiac sources, intracerebral event, toxicologic, neurologic, as well as others were entertained. Physical examination: As above. Clinically the patient looks well. He had a rather benign abdomen. ER treatment provided: IV Lock IV saline hydration On reassessment the patient felt better. IV Rocephin Diagnostics interpretation by me: ECG: No ischemia. The labs revealed an unremarkable CBC and chemistry panel. Urinalysis was concerning for infection. The patient had mild hyperglycemia. His blood sugar was monitored and he had slight improvement. No further hypoglycemic episodes. Imaging studies: CT scan as above The patient is doing well and his imaging along with blood work look excellent. He has moderate signs of infection on his urinalysis. Prior urinalysis was concerning as well. Culture had skin julio without specific sensitivities listed. He had taken one dose of Bactrim this evening. This was after his hypoglycemic episodes earlier. The patient was treated with IV Rocephin. His sugar was monitored multiple times in the Emergency Room and he had no hypoglycemia episodes. CT imaging did not reveal any evidence of emergent pathology. I suspect the patient has a UTI and since it hasn't been treated despite being prescribed antibiotics earlier along with the fact that he has prostate issues I we will treat him for an extended course to cover prostatitis. The patient felt comfortable with this plan. He desired discharge and is doing so well at this time I think it is reasonable. Family feels comfortable. He will be with his as well as his daughter who is visiting from out of town. If he worsens in any way whatsoever he will be brought back to the emergency department for reevaluation. The patient and family will contact the primary clinic tomorrow and have arrangements for a close follow-up. He will record his blood sugars as well as his daily intake so that his insulin regimen can be monitored. Because of the hypoglycemic episode earlier today I did advise the patient to cut his evening Lantus in half and monitor closely. He feels comfortable with this.I gave my usual and customary discussion regarding this issue. By the evaluation outlined above other emergent etiologies such as those listed in the differential, as well as others, were deemed relatively unlikely. The patient and for educated about the findings as listed above. All questions were answered and they were pleased with the treatment. Return instructions were outlined and the patient was discharged in stable condition. The patient was referred to his primary clinic for follow-up for a recheck of the current condition. Medication Reconcilliation Current Medication List: was personally reviewed by me Blood Pressure Screening Patient's blood pressure: Elevated blood pressure Blood pressure disposition: Elevated BP felt to be situational, Referred to PCP Impression Primary Impression: UTI (urinary tract infection) Additional Impressions: Hyperglycemia transient hypoglycemia Scribe Attestation The scribe's documentation has been prepared under my direction and personally reviewed by me in its entirety. I confirm that the note above accurately reflects all work, treatment, procedures, and medical decision making performed by me. Departure Information Dispostion Home / Self-Care Prescriptions Sulfa/Trimethoprim (Bactrim Ds 800MG/160MG) Tab 1 TAB PO BID for 16 Days, #32 TAB Prov: Amauri Oates MD 10/17/17 Referrals Maribell Worrell C.RNoelleN.P (PCP) Forms HOME CARE DOCUMENTATION FORM, IMPORTANT VISIT INFORMATION, WORK / SCHOOL INSTRUCTIONS Patient Instructions My [facility] Additional Instructions Cut the Lantus dose in half this evening. Continue the Bactrim prescription however it will be extended for a full 3 weeks to cover the urinary tract and prostate. Trimethoprim-Sulfamethoxazole( Bactrim DS): Take one pill twice daily for 21 days for your urine infection. All antibiotics can cause diarrhea. If this occurs and you feel worse or it does not resolve in 1-2 days follow up with your doctor or return to the Emergency Department as this could be signs of serious underlying problems. Any medication can cause an allergic reaction, stop the pills immediately and return to the ER for rash, hives, breathing difficulties, or swelling. Acetaminophen(Tylenol) may be used for fever or pain. Use 1000mg every six hours as nee and I did not radiate are Nepalese gentleman who think herded. Avoid using more than 4000mg in a 24 hour period. Rest and drink plenty of fluids. Continue current medications. Monitor your blood sugar 4-5 times a day. Record the times. Record your daily intake of food and take this information to your doctor for follow-up so that your diabetic insulin regimen can be evaluated. Return to the ER immediately for worsening or persistent abdominal pain, vomiting, fevers, back or flank pain, worsening of your condition, or as needed. Follow up with your primary physician within 1-2 days for a recheck of the current condition. Problem Qualifiers
== END 2017-10-17 00:10 | disposition home or self-care (01) ==
LOC: C.EDB 20:52 → C.EDC 10-17 00:10
DX: N39.0 Urinary tract infection, site not specified (principal); E11.65 Type 2 diabetes mellitus with hyperglycemia; E11.649 Type 2 diabetes mellitus with hypoglycemia without coma; J44.9 Chronic obstructive pulmonary disease, unspecified; R03.0 Elevated blood-pressure reading, without diagnosis of hypertension; Z87.442 Personal history of urinary calculi; Z83.3 Family history of diabetes mellitus; Z82.49 Family history of ischemic heart disease and other diseases of the circulatory system; Z83.6 Family history of other diseases of the respiratory system; Z79.4 Long term (current) use of insulin

== ENCOUNTER → 2017-10-19 | Outpatient (CLI) | payer BC ==
[~2017-10-19] MED LIST changes: +EFFSR/75 PO; +HYCUDL5 PO; +METO5TAB2 PO; +ONDA4TAB9 PO; -PRD20 PO; +PRVHFAIN INH; -VENL150C56 PO; +[UNRECOGNIZED DRUG - CODE]
== END | disposition home or self-care (01) ==
LOC: C.LABSPEC 17:05
PROVIDERS: ATTEND Urology
DX: N39.0 Urinary tract infection, site not specified (principal); R31.0 Gross hematuria

== ENCOUNTER 2017-10-25 03:29 | Inpatient (IN) | payer BC, OTHER ==
[~2017-10-25] VITALS: Ht 182.9 cm; Wt 68.4 kg
[~2017-10-25 03:29] MED LIST changes: -ASCA500 PO; -BUSP1TAB46 PO; -HYCUDL5 PO; -INSDGIPEN SC; -LEVA45AE INH; -METO5TAB2 PO; -MRLP17 PO; -MULT-506 PO; -ONDA4TAB9 PO; -PANT1TAB3 PO; -SYMIN160 INH; -TPRSR/25 PO; -[UNRECOGNIZED DRUG - CODE]
[2017-10-25] MEDS ORDERED: SODIUM CHLORIDE 0.9% 1000ML 1,000 ML IV STA (04:00)
--- NOTE | 2017-10-25 04:08 | EMERGENCY ROOM VISIT NOTE ---
History Report prepared by Jody: Ted Cage Under the Supervision of: Dr. Kelly Robins D.O. First contact with patient: 03:45 Chief Complaint: FLU LIKE SX Stated Complaint: FLU-LIKE SYMPTOMS History of Present Illness The patient is a 77 year old male who presents to the Emergency Room with complaints of flu-like symptoms that began a couple days ago. At that time, the patient began to experience chills with no objective fevers. His symptoms progressed into some generalized weakness, lethargy, and increased sleeping as well. Yesterday, he took his temperature and notes to be febrile. He has not been keeping up with his fluids secondary to his increased somnolence. He denies any cough or abdominal pain. He becomes mildly short of breath with exertion. He is currently treating a UTI with Bactrim. He denies any new medications otherwise. He notes that he has been having trouble with his sugars recently as well. He received his influenza immunization this year. He has been taking Tylenol and Ibuprofen as well. Source of History: patient Onset: a couple of days ago Position: other (Global) Symptom Intensity: moderate Quality: other (Flu-like illness) Timing: constant Associated Symptoms: + fevers, + chills, + SOB (with exertion), + urinary symptoms (treating a UTI), + weakness, No cough, No abdominal pain Review of Systems See HPI for pertinent positives & negatives. A total of 10 systems reviewed and were otherwise negative. Past Medical & Surgical Medical Problems: (1) Asthma (2) Bilateral pneumonia (3) Bronchitis (4) COPD exacerbation (5) Diabetes (6) Dyspnea (7) General ill feeling (8) Pneumonia (9) Stroke-like symptoms Surgical Problems: (1) H/O lumbar discectomy Family History Cancer Diabetes mellitus Heart disease Hypertension Lung disease Social History Smoking Status: Former Smoker Alcohol Use: none Drug Use: none Marital Status: Housing Status: lives with family Occupation Status: retired Current/Historical Medications Scheduled Alprostadil (Vasodilator) (Edex), 1 DOSE INJ UD Ascorbic Acid (Vitamin C), 500 MG PO DAILY Atorvastatin (Atorvastatin Calcium), 40 MG PO DAILY Budesonide/Formoterol Fumarate (Symbicort 160/4.5 Inhaler), 2 PUFFS INH BID Clopidogrel Bisulfate (Clopidogrel), 75 MG PO QAM Dicyclomine Hcl (Dicyclomine Hcl), 20 MG PO BID Insulin Aspart (Novolog Flexpen), 1 DOSE SC UD Insulin Glargine (Lantus Solostar), 30 UNITS SC HS Levothyroxine Sodium (Levothyroxine Sodium), 100 MCG PO DAILY Metoclopramide Hcl (Metoclopramide Hcl), 5 MG PO DAILYBB Metoprolol Succinate (Metoprolol Succinate ER), 25 MG PO BID Multivitamin (Multivitamin), 1 TAB PO DAILY Pantoprazole (Protonix), 40 MG PO DAILY Polyethylene (Miralax), 17 GM PO DAILY Sulfamethoxazole-Trimethoprim (Bactrim Ds 800MG/160MG), 1 TAB PO BID Venlafaxine Hcl (Effexor Extended Rel), 75 MG PO DAILY Scheduled PRN Albuterol Hfa (Ventolin Hfa), 2 PUFFS INH Q4-6HRS PRN for SOB/Wheezing Buspirone Hcl (Buspirone Hcl), 7.5 MG PO TID PRN for Anxiety Hydrocodone/Homatropine (Hydromet 5-1.5 mg/5Ml), 5 ML PO BID PRN for SORE THROAT Levalbuterol Tartrate (Levalbuterol Tartrate Hfa), 1 PUFF INH Q6H PRN for Shortness of Breath Ondansetron (Ondansetron HCl), 4 MG PO Q8 PRN for Nausea Allergies Coded Allergies: Levofloxacin (Verified Adverse Reaction, Unknown, fidgety and anxiety, ) Physical Exam Vital Signs Date Time Temp Pulse Resp B/P (MAP) Pulse Ox O2 Delivery O2 Flow Rate FiO2 10/25/17 08:26 106 20 162/79 96 Room Air 10/25/17 07:00 99 Room Air 10/25/17 06:54 100 20 146/79 99 Room Air 10/25/17 05:59 77 139/107 10/25/17 04:29 65 146/71 10/25/17 04:11 95 10/25/17 03:34 37.1 97 18 148/67 94 Room Air Physical Exam General: Slow to answer questions. HEENT: Head - normocephalic and atraumatic. Pupils are equal, round, and reactive to light. Extraocular eye muscles are intact and sclera are anicteric. Ears - bilaterally patent canals with noninjected tympanic membranes and no evidence of hemotympanum. Nose - moist nasal mucosa without discharge. Mouth - moist buccal mucosa. Oropharynx is nonerythematous and there is no tonsillar exudate or edema noted. Neck: Supple; no JVD, nuchal rigidity, cervical lymphadenopathy, or auscultated bruits. Heart: Regular rate and rhythm. There is a normal S1 and S2 with no murmurs, clicks, or gallops appreciated. Lungs: Clear to auscultation bilaterally with no wheezes, rales, or rhonchi. Abdomen: Soft, completely nontender, nondistended, with good bowel sounds. There are no palpable pulsatile masses or hepatosplenomegaly. There is no guarding, rigidity, or rebound noted. Extremities: No evidence of cyanosis, clubbing, or edema. There are easily palpable peripheral pulses. Skin: Pale but warm. Neuro:The patient is awake and alert, oriented to day and place with mild confusion on the time. Muscle strength is 5/5 in all 4 extremities. The patient has equal patient liaison strength and equal pedal push and pull. There are no cerebellar signs. Medical Decision & Procedures ER Provider Diagnostic Interpretation: Radiology results as stated below per my review and the radiologist's interpretation: CT HEAD: No ICH, mass effect or edema. No evidence of acute cortical stroke. Periventricular small vessel ischemic change. Visualized sinuses and mastoid air cells are clear. Radiologist: Selwyn Mayers M.D. Laboratory Results 10/25/17 03:40 Red Blood Count 4.86, Mean Corpuscular Volume 81.5, Mean Corpuscular Hemoglobin 27.2, Mean Corpuscular Hemoglobin Concent 33.3, Mean Platelet Volume 9.1, Neutrophils (%) (Auto) 85.5, Lymphocytes (%) (Auto) 3.1, Monocytes (%) (Auto) 10.7, Eosinophils (%) (Auto) 0.1, Basophils (%) (Auto) 0.1, Neutrophils # (Auto ) 7.23, Lymphocytes # (Auto) 0.26, Monocytes # (Auto) 0.90, Eosinophils # (Auto ) 0.01, Basophils # (Auto) 0.01 10/25/17 03:40 Test 10/25/17 03:40 10/25/17 05:35 White Blood Count 8.45 K/uL (4.8-10.8) Red Blood Count 4.86 M/uL (4.7-6.1) Hemoglobin 13.2 g/dL (14.0-18.0) Hematocrit 39.6 % (42-52) Mean Corpuscular Volume 81.5 fL (80-100) Mean Corpuscular Hemoglobin 27.2 pg (25-34) Mean Corpuscular Hemoglobin Concent 33.3 g/dl (32-36) Platelet Count 244 K/uL (130-400) Mean Platelet Volume 9.1 fL (7.4-10.4) Neutrophils (%) (Auto) 85.5 % Lymphocytes (%) (Auto) 3.1 % Monocytes (%) (Auto) 10.7 % Eosinophils (%) (Auto) 0.1 % Basophils (%) (Auto) 0.1 % Neutrophils # (Auto) 7.23 K/uL (1.4-6.5) Lymphocytes # (Auto) 0.26 K/uL (1.2-3.4) Monocytes # (Auto) 0.90 K/uL (0.11-0.59) Eosinophils # (Auto) 0.01 K/uL (0-0.5) Basophils # (Auto) 0.01 K/uL (0-0.2) RDW Standard Deviation 42.6 fL (36.4-46.3) RDW Coefficient of Variation 14.4 % (11.5-14.5) Immature Granulocyte % (Auto) 0.5 % Immature Granulocyte # (Auto) 0.04 K/uL (0.00-0.02) Anion Gap 8.0 mmol/L (3-11) Est Creatinine Clear Calc Drug Dose 45.3 ml/min Estimated GFR () 54.7 Estimated GFR (Non- 47.2 BUN/Creatinine Ratio 13.3 (10-20) Calcium Level 8.9 mg/dl (8.5-10.1) Influenza Type A Antigen Neg for Influ A (NEG) Influenza Type B Antigen Neg for Influ B (NEG) Urine Color DK YELLOW Urine Appearance CLEAR (CLEAR) Urine pH 5.0 (4.5-7.5) Urine Specific [place] 1.027 (1.000-1.030) Urine Protein 1+ (NEG) Urine Glucose (UA) TRACE (NEG) Urine Ketones 1+ (NEG) Urine Occult Blood TRACE (NEG) Urine Nitrite NEG (NEG) Urine Bilirubin NEG (NEG) Urine Urobilinogen NEG (NEG) Urine Leukocyte Esterase NEG (NEG) Urine WBC (Auto) 5-10 /hpf (0-5) Urine RBC (Auto) 0-4 /hpf (0-4) Urine Hyaline Casts (Auto) 1-5 /lpf (0-5) Urine Epithelial Cells (Auto) >30 /lpf (0-5) Urine Bacteria (Auto) NEG (NEG) Urine Renal Epithelial Cells /lpf (0-5) Laboratory results per my review. Medications Administered Medications (Trade) Dose Ordered Sig/Rose Mary Route Start Time Stop Time Status Last Admin Dose Admin Sodium Chloride 1,000 ml @ 999 mls/hr Q1H1M STAT IV 10/25/17 04:00 10/25/17 05:00 DC 10/25/17 04:00 999 MLS/HR Hydrocodone Bit/ Homatropine Methylb (Hycodan Syrup) 5 ml STK-MED ONCE .ROUTE 10/25/17 08:16 10/25/17 08:17 DC 10/25/17 08:26 5 ML Ondansetron HCl (Zofran Inj) 4 mg Q6H PRN IV 10/25/17 08:30 11/24/17 08:29 10/25/17 21:38 4 MG Procedure Sodium Chloride 1000 ml @ 999 mls/hr IV ECG Indication: weakness Rate (beats per minute): 91 Rhythm: normal sinus Findings: no acute ischemic change, no ectopy ED Course 0345: Past medical records reviewed. The patient was evaluated in room B6. A complete history and physical exam was performed. An IV lock was initiated and labs are drones above. A twelve-lead EKG was obtained as described above. Patient had a CT scan of the brain as described above. 0400: Ordered Sodium Chloride 1000 ml @ 999 mls/hr IV. 0529: The patient is feeling better. He will be giving us a urine specimen. He is currently drinking marilyn franklin. 0604: The patient required nursing staff to hold him up while he went to the bathroom. He is too weak to be discharged. 0630: Upon reevaluation, I discussed findings and results with him. He verbalized agreement of the treatment plan. I spoke with Dr. Garcia of the [facility]. The patient will be evaluated for further management and care. Medical Decision The patient is a 77 year old male who presents to the ED with flu-like symptoms. Differential diagnosis includes influenza, medication side effects, dehydration, intracranial process, hypoglycemia, and anemia. Laboratory Results: White blood cell count normal at 8.4, stable H&H, influenza testing negative, sodium low at 131, BUN 19, creatinine 1.4, and glucose 127 This is a 77-year-old male patient presents to the emergency department with extreme weakness, lethargy and decreased oral intake. The family explains that the patient has had previous episodes similar to this when taking antibiotics. They believe that he has side effects or reaction to the antibiotics. He was noted to have a low sodium. The patient described feeling somewhat better after IV hydration and drinking oral liquids. However, nursing staff had to hold the patient up in order to urinate. They did not feel that he will be safe for discharge or to the care of his family. The patient was would was willing to stay for in patient care. The Bactrim may need to be changed because of the side effects. Medication Reconcilliation Current Medication List: was personally reviewed by me Blood Pressure Screening Patient's blood pressure: Elevated blood pressure Will be addressed as an inpatient. Consults Time Called: [phone] Consulting Physician: Dr. Garcia - [facility] [place] Returned Call: [phone] Discussed the patient's case. The patient will be evaluated for further management. Impression Primary Impression: Weakness Additional Impressions: Hyponatremia Medication side effect Scribe Attestation The scribe's documentation has been prepared under my direction and personally reviewed by me in its entirety. I confirm that the note above accurately reflects all work, treatment, procedures, and medical decision making performed by me. Departure Information Dispostion Being Evaluated By Hospitalist Referrals Maribell Worrell, C.R.N.P (PCP) Patient Instructions [facility] Problem Qualifiers Additional Impressions: Medication side effect Encounter type: initial encounter Qualified Codes: T88.7XXA - Unspecified adverse effect of drug or medicament, initial encounter
[2017-10-25] MEDS ORDERED: DICY20TA10 PO (04:23)
[2017-10-25] MEDS ORDERED: PLV75 PO (04:23)
[2017-10-25] MEDS ORDERED: EFFSR75 PO (04:23)
[2017-10-25] MEDS ORDERED: LEVO100T7 PO (04:23)
[2017-10-25] MEDS ORDERED: NVLGI/PEN SC (04:23)
[2017-10-25] MEDS ORDERED: VNTHFA/IN INH (04:25)
[2017-10-25] MEDS ORDERED: LPT40 PO (04:25)
[2017-10-25 04:41] LABS: BASO % 0.1 %; BASO ABS # 0.01 K/uL (0-0.2); EOS % 0.1 %; EOS ABS # 0.01 K/uL (0-0.5); HEMATOCRIT 39.6 % (42-52); HEMOGLOBIN 13.2 g/dL (14.0-18.0); IG# 0.04 K/uL (0.00-0.02); LYMPH % 3.1 %; LYMPH ABS # 0.26 K/uL (1.2-3.4); MEAN CELL VOLUME 81.5 fL (80-100); MEAN CORPUSCULAR HEMOGLOBIN 27.2 pg (25-34); MEAN CORPUSCULAR HGB CONC 33.3 g/dl (32-36); MEAN PLATELET VOLUME 9.1 fL (7.4-10.4); MONO % 10.7 %; NEUT % 85.5 %; NEUT ABS # 7.23 K/uL (1.4-6.5); PLATELET COUNT 244 K/uL (130-400); RED CELL DISTRIBUTION WIDTH CV 14.4 % (11.5-14.5); RED CELL DISTRIBUTION WIDTH SD 42.6 fL (36.4-46.3); WHITE BLOOD COUNT 8.45 K/uL (4.8-10.8)
[2017-10-25 04:45] LABS: INFLUENZA B ANTIGEN Neg for Influ B (NEG)
[2017-10-25 04:54] LABS: CALCIUM 8.9 mg/dl (8.5-10.1); CREATININE 1.43 mg/dl (0.60-1.40); POTASSIUM 4.2 mmol/L (3.5-5.1)
[2017-10-25 07:00] VITALS: O2SAT 99; BMI 21.8
--- NOTE | 2017-10-25 07:06 | DIAGNOSTIC IMAGING REPORT ---
HEAD WITHOUT CONTRAST (CT) CT DOSE: 614.27 mGy.cm HISTORY: Mental status change altered ms TECHNIQUE: Multiaxial CT images of the head were performed without the use of intravenous contrast. A dose lowering technique was utilized adhering to the principles of ALARA. Comparison: 04/11/2017 Findings: The paranasal sinuses and mastoid air cells are clear. The calvarium and skull base are intact. The ventricles and sulci are within normal limits. There is no mass, hematoma, midline shift, or acute infarct. Age-related chronic small vessel change unaltered from the prior study. Impression: No acute intracranial abnormality. Chronic age-related small vessel change. The above report was generated using voice recognition software. It may contain grammatical, syntax or spelling errors. Electronically signed by: Kwesi Powell M.D. 10/25/2017 7:04 AM Dictated Date/Time: 10/25/2017 7:03 AM
[2017-10-25] MEDS ORDERED: ALPROSTADIL INJ SCH (07:45)
[2017-10-25] MEDS ORDERED: HYDROCODONE/HOMATROPINE SYRUP 5MG/1.5MG 5ML UDP PO PRN (07:45)
[2017-10-25] MEDS ORDERED: HYDROCODONE/HOMATROPINE SYRUP 5MG/1.5MG 5ML UDP ONE (08:16)
[2017-10-25] MEDS ORDERED: ALUMINUM/MAGNESIUM/SIMETH (MAALOX MAX) 30 ML UDC PO PRN (08:30)
[2017-10-25] MEDS ORDERED: POLYETHYLENE (MIRALAX) 17 GM PACK PO PRN (08:30)
[2017-10-25] MEDS ORDERED: LORAZEPAM 2 MG/ML 1 ML VIAL IV PRN ×2 (08:45)
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
[2017-10-25] MEDS ORDERED: DICYCLOMINE HCL 20 MG TAB PO SCH (09:00)
--- NOTE | 2017-10-25 09:10 | DIAGNOSTIC IMAGING REPORT ---
RENAL ULTRASOUND HISTORY: persistent hematuria COMPARISON: Abdomen and pelvis CT 10/16/2017. FINDINGS: Right kidney: 10.5 cm. No hydronephrosis. Normal corticomedullary differentiation and cortical thickness for age. Left kidney: 10.0 cm. No hydronephrosis. Normal corticomedullary differentiation and cortical thickness for age. Bladder: No bladder wall thickening. The bilateral ureteral jets were identified. IMPRESSION: Normal renal ultrasound. Electronically signed by: Jeet Pahceco M.D. 10/25/2017 9:09 AM Dictated Date/Time: 10/25/2017 9:05 AM
[2017-10-25] MEDS ORDERED: LORAZEPAM 0.5 MG TAB ONE (09:14)
[2017-10-25 09:52] VITALS: BP 150/74; PULSE 99; TEMP 37.5; O2SAT 98
[2017-10-25] MEDS ORDERED: ONDANSETRON 4 MG TAB PO PRN (10:30)
[2017-10-25] MEDS: SODIUM CHLORIDE 0.9% 1000ML 1,000 ML IV SCH ×2 (10:36→20:12)
[2017-10-25] MEDS ORDERED: MRLP17 PO (10:40)
[2017-10-25] MEDS ORDERED: BUSP1TAB46 PO (10:40)
[2017-10-25] MEDS ORDERED: GLUCOSE 40% GEL 15 GM TUBE PO PRN (10:45)
[2017-10-25] MEDS ORDERED: GLUCOSE 10 TABS/TUBE PO PRN (10:45)
[2017-10-25] MEDS ORDERED: DEXTROSE 50% 50 ML SYR IV PRN (10:45)
[2017-10-25] MEDS ORDERED: GLUCAGON FOR INJ 1 MG VIAL SQ PRN (10:45)
[2017-10-25] MEDS: BUDESONIDE/FORMOTEROL FUMARATE 160/4.5 60 PUFFS/INHALER INH SCH ×2 (11:08→20:13)
[2017-10-25] MEDS: PANTOprazole SOD 40 MG TAB PO SCH (11:09)
[2017-10-25] MEDS: MULTIVITAMIN TAB PO SCH (11:09)
[2017-10-25] MEDS: POLYETHYLENE (MIRALAX) 17 GM PACK PO SCH (11:09)
[2017-10-25] MEDS ORDERED: IV FLUIDS COMPLETED PRN (11:15)
--- NOTE | 2017-10-25 11:35 | DIAGNOSTIC IMAGING REPORT ---
TWO VIEW CHEST CLINICAL HISTORY: Follow-up abnormal lung bases on prior abdominal CT scan. FINDINGS: PA and lateral chest radiographs are compared to study dated 10/16/2017 and correlated with chest CT dated 03/06/[address] dated 10/16/2017. The PA view is degraded by patient rotation. The cardiac silhouette is unremarkable. There is atherosclerotic calcification and uncoiling of the thoracic aorta. Emphysema and chronic interstitial thickening are similar to previous. Irregular airspace opacities are present in the right upper lung. No lobar consolidation or pleural effusion is identified. Apical scarring is observed. There is no pneumothorax. The skeletal structures are osteopenic. Degenerative change is noted throughout the thoracic spine. IMPRESSION: 1. Emphysema. 2. There are airspace opacities in the right upper lung which may represent an infectious/inflammatory pneumonitis. Continued radiographic follow-up to resolution is recommended. 3. There is no lobar consolidation or pleural effusion. Electronically signed by: Vega Johnston M.D. 10/25/2017 11:34 AM Dictated Date/Time: 10/25/2017 11:31 AM
[2017-10-25] MEDS: IPRATROPIUM BROMIDE/ALBUTEROL respimat INH INH SCH ×4 (11:40→20:13)
[2017-10-25] MEDS: AMOXICILLIN/CLAVULANATE TAB 875 MG TAB PO SCH ×2 (11:42→16:59)
[2017-10-25] MEDS: CLOPIDOGREL BISULFATE 75 MG TAB PO SCH (11:43)
[2017-10-25] MEDS: VENLAFAXINE HCL XR 75 MG CAPXR PO SCH (11:43)
[2017-10-25] MEDS: ATORVASTATIN 40 MG TAB PO SCH (11:43)
[2017-10-25] MEDS: METOPROLOL SUCC 25MG EXT REL TAB PO SCH ×2 (11:43→20:14)
[2017-10-25] MEDS: ASCORBIC ACID 500 MG TAB PO SCH (11:44)
[2017-10-25 12:17] LABS: INR 1.2 (0.9-1.1)
[2017-10-25] MEDS: INSULIN ASPART 100 UNITS/ML 3 ML PEN SC SCH ×3 (12:27→20:21)
[2017-10-25] MEDS: OXYCODONE HCL IR 5 MG TAB (IMMEDIATE RELEASE) PO PRN (13:51)
[2017-10-25] MEDS: ENOXAPARIN 40 MG/0.4 ML SYR SQ SCH (13:51)
[2017-10-25] MEDS: LORAZEPAM 0.5 MG TAB PO PRN ×2 (14:47→21:38)
[2017-10-25 16:26] VITALS: BP 127/69; PULSE 86; TEMP 37; O2SAT 91
[2017-10-25 18:00] VITALS: O2SAT 91
[2017-10-25] MEDS ORDERED: MULT-506 PO (18:27)
[2017-10-25] MEDS ORDERED: TPRSR/25 PO (18:38)
[2017-10-25] MEDS: QUETIAPINE FUMARATE 25 MG TAB PO SCH (20:14)
[2017-10-25] MEDS: INSULIN GLARGINE SOLOSTAR 100 UNITS/ML 3 ML PEN SC SCH (20:22)
[2017-10-25] MEDS ORDERED: PANT1TAB3 PO (21:30)
[2017-10-25] MEDS ORDERED: LEVA45AE INH (21:30)
[2017-10-25] MEDS ORDERED: INSDGIPEN SC (21:30)
[2017-10-25] MEDS: ONDANSETRON INJ 2 MG/ML 2 ML VIAL IV PRN (21:38)
[2017-10-25] MEDS ORDERED: ONDA4TAB9 PO (22:25)
[2017-10-25] MEDS ORDERED: METO5TAB2 PO (22:25)
[2017-10-25] MEDS ORDERED: HYCUDL5 PO (22:25)
[2017-10-25] MEDS ORDERED: SULF800T23 PO (22:25)
[2017-10-25] MEDS ORDERED: [UNRECOGNIZED DRUG - CODE] INJ (22:25)
[2017-10-25] MEDS ORDERED: SYMIN160 INH (22:30)
[2017-10-25] MEDS ORDERED: ASCA500 PO (22:30)
[2017-10-25 23:22] VITALS: BP 109/64; PULSE 80; TEMP 37; O2SAT 95
[2017-10-26] MEDS: LEVOTHYROXINE 100 MCG TAB PO SCH (04:55)
[2017-10-26] MEDS: SODIUM CHLORIDE 0.9% 1000ML 1,000 ML IV SCH ×2 (06:08→17:19)
[2017-10-26] MEDS: OXYCODONE HCL IR 5 MG TAB (IMMEDIATE RELEASE) PO PRN (06:09)
[2017-10-26 06:59] LABS: CALCIUM 7.7 mg/dl (8.5-10.1); CREATININE 1.21 mg/dl (0.60-1.40); POTASSIUM 3.9 mmol/L (3.5-5.1)
[2017-10-26] MEDS ORDERED: METOCLOPRAMIDE HCL 5 MG TAB PO SCH (07:00)
[2017-10-26 07:08] LABS: HEMATOCRIT 30.7 % (42-52); MEAN CELL VOLUME 81.2 fL (80-100); MEAN CORPUSCULAR HEMOGLOBIN 26.5 pg (25-34); MEAN CORPUSCULAR HGB CONC 32.6 g/dl (32-36); MEAN PLATELET VOLUME 8.9 fL (7.4-10.4); PLATELET COUNT 189 K/uL (130-400); RED CELL DISTRIBUTION WIDTH CV 14.4 % (11.5-14.5); RED CELL DISTRIBUTION WIDTH SD 42.7 fL (36.4-46.3); WHITE BLOOD COUNT 6.05 K/uL (4.8-10.8)
[2017-10-26 07:28] VITALS: BP 114/62; PULSE 90; TEMP 37.3; O2SAT 90
[2017-10-26 08:01] VITALS: O2SAT 90
[2017-10-26] MEDS: AMOXICILLIN/CLAVULANATE TAB 875 MG TAB PO SCH ×2 (08:02→17:21)
[2017-10-26] MEDS: ENOXAPARIN 40 MG/0.4 ML SYR SQ SCH (08:03)
[2017-10-26] MEDS: POLYETHYLENE (MIRALAX) 17 GM PACK PO SCH (08:03)
[2017-10-26] MEDS: PANTOprazole SOD 40 MG TAB PO SCH (08:03)
[2017-10-26] MEDS: MULTIVITAMIN TAB PO SCH (08:03)
[2017-10-26] MEDS: ATORVASTATIN 40 MG TAB PO SCH (08:03)
[2017-10-26] MEDS: VENLAFAXINE HCL XR 75 MG CAPXR PO SCH (08:03)
[2017-10-26] MEDS: METOPROLOL SUCC 25MG EXT REL TAB PO SCH ×2 (08:03→20:39)
[2017-10-26] MEDS: BUDESONIDE/FORMOTEROL FUMARATE 160/4.5 60 PUFFS/INHALER INH SCH ×2 (08:03→20:38)
[2017-10-26] MEDS: ASCORBIC ACID 500 MG TAB PO SCH (08:03)
[2017-10-26] MEDS: CLOPIDOGREL BISULFATE 75 MG TAB PO SCH (08:03)
[2017-10-26] MEDS: IPRATROPIUM BROMIDE/ALBUTEROL respimat INH INH SCH ×4 (08:03→20:38)
[2017-10-26] MEDS: INSULIN ASPART 100 UNITS/ML 3 ML PEN SC SCH ×4 (08:54→20:45)
[2017-10-26] MEDS ORDERED: KETOROLAC TROMETHAMINE 15 MG/ML VIAL IV. STA (12:44)
[2017-10-26 15:45] VITALS: BP 101/58; PULSE 82; O2SAT 94
[2017-10-26 16:02] VITALS: O2SAT 94
--- NOTE | 2017-10-26 16:02 | Progress Note ---
Subjective Date of Service: Oct 26, 2017. Subjective pt is much less restless today, has only focal complaints of shoulder pain, no other issues, daughter is at bedside and states he looks more like his baseline Problem List Medical Problems: (1) Hyponatremia Status: Acute (2) Medication side effect Status: Acute (3) SOB (shortness of breath) Status: Acute (4) TIA (transient ischemic attack) Status: Acute (5) Troponin level elevated Status: Acute (6) Weakness Status: Acute Review of Systems Constitutional: No fever, No chills, No weakness, No fatigue Respiratory: No cough, No shortness of breath, No dyspnea on exertion Cardiac: No chest pain, No orthopnea Abdomen: No pain, No nausea Musculoskeletal: + joint pain, + muscle pain Neurologic: + weakness, + balance problems, No memory loss, No paralysis Objective Vital Signs Date Time Temp Pulse Resp B/P (MAP) Pulse Ox O2 Delivery O2 Flow Rate FiO2 10/26/17 08:01 90 Room Air 10/26/17 07:28 37.3 90 18 114/62 (79) 90 Room Air 10/26/17 00:00 Room Air 10/25/17 23:22 37.0 80 16 109/64 (79) 95 Room Air 10/25/17 18:00 91 Room Air 10/25/17 16:26 37.0 86 20 127/69 (88) 91 Physical Exam General Appearance: WD/WN, + mild distress Eyes: normal inspection, sclerae normal Respiratory/Chest: chest non-tender, lungs clear, normal breath sounds Cardiovascular: regular rate, rhythm, no murmur Abdomen: normal bowel sounds, non tender, soft Extremities: no pedal edema, no calf tenderness Neurologic/Psychiatric: alert, oriented x 3 Laboratory Results Last 24 Hours Test 10/25/17 16:43 10/25/17 20:18 10/26/17 06:19 10/26/17 07:37 Bedside Glucose 135 mg/dl 178 mg/dl 143 mg/dl White Blood Count 6.05 K/uL Red Blood Count 3.78 M/uL Hemoglobin 10.0 g/dL Hematocrit 30.7 % Mean Corpuscular Volume 81.2 fL Mean Corpuscular Hemoglobin 26.5 pg Mean Corpuscular Hemoglobin Concent 32.6 g/dl RDW Standard Deviation 42.7 fL RDW Coefficient of Variation 14.4 % Platelet Count 189 K/uL Mean Platelet Volume 8.9 fL Sodium Level 129 mmol/L Potassium Level 3.9 mmol/L Chloride Level 100 mmol/L Carbon Dioxide Level 23 mmol/L Anion Gap 6.0 mmol/L Blood Urea Nitrogen 15 mg/dl Creatinine 1.21 mg/dl Est Creatinine Clear Calc Drug Dose 53.5 ml/min Estimated GFR () 67.0 Estimated GFR (Non- 57.8 BUN/Creatinine Ratio 12.1 Random Glucose 144 mg/dl Calcium Level 7.7 mg/dl Test 10/26/17 11:34 10/26/17 13:05 Bedside Glucose 210 mg/dl Urine Random Sodium 44 mEq/L Assessment and Plan 77 M presents with chills, restlessness and general ill feeling. Has improved but not yet had therapy evaluation, not quite to baseline and family is concerned, with complaints of joint pain will check ESR, try toradol and avoid opiates to avoid encephalopathy Illness, in past has not had renal U/s to eval for hematuria, did have CT with large prostate, presumedly this pt is treated for prostatitis. Will change bactrim to augmentin in case bactrim is reacting with some of his other meds, will check renal u/s. comment on CT from this month of tree in bud in lungs will prompt a CXR, but not treatment as the pt does not have any active pulmonary symptoms Restless ness, improved with stopoing bentyl and reglan along with hydrocodone cough syrup,not much sleep with seroquel DM will have basal bolus and ssi along with diabetic diet Cerebrovascular risk reduction with history of stroke, will continue plavix and aspirin COPD will add combivent and continue symbicort clinically stable at this time lovenox for DVT prevention, PT/OT evaluation
[2017-10-26 16:05] VITALS: BP 101/58; PULSE 82; TEMP 37; O2SAT 94
[2017-10-26] MEDS: QUETIAPINE FUMARATE 25 MG TAB PO SCH (20:39)
[2017-10-26] MEDS: INSULIN GLARGINE SOLOSTAR 100 UNITS/ML 3 ML PEN SC SCH (20:45)
[2017-10-26 20:46] VITALS: BP 120/60; PULSE 71
[2017-10-26] MEDS: LORAZEPAM 0.5 MG TAB PO PRN (21:49)
[2017-10-27] VITALS (7 sets, daily range): BP systolic 108–130; BP diastolic 49–69; PULSE 82–101; TEMP 36.7–37; O2SAT 92–96
[2017-10-27] MEDS: SODIUM CHLORIDE 0.9% 1000ML 1,000 ML IV SCH ×2 (01:10→12:32)
[2017-10-27] MEDS ORDERED: HALOPERIDOL LACTATE 5 MG/ML 1 ML VIAL IM ONE (02:00)
[2017-10-27] MEDS ORDERED: HALOPERIDOL LACTATE 5 MG/ML 1 ML VIAL ONE (02:17)
[2017-10-27] MEDS: LEVOTHYROXINE 100 MCG TAB PO SCH ×2 (05:30→05:47)
[2017-10-27] MEDS: BUDESONIDE/FORMOTEROL FUMARATE 160/4.5 60 PUFFS/INHALER INH SCH ×2 (05:46→21:17)
[2017-10-27] MEDS: ONDANSETRON INJ 2 MG/ML 2 ML VIAL IV PRN (05:52)
[2017-10-27 08:09] LABS: HEMATOCRIT 26.4 % (42-52); HEMOGLOBIN 8.7 g/dL (14.0-18.0); MEAN CELL VOLUME 80.7 fL (80-100); MEAN CORPUSCULAR HEMOGLOBIN 26.6 pg (25-34); MEAN PLATELET VOLUME 8.8 fL (7.4-10.4); PLATELET COUNT 167 K/uL (130-400); RED CELL DISTRIBUTION WIDTH CV 14.4 % (11.5-14.5); RED CELL DISTRIBUTION WIDTH SD 42.5 fL (36.4-46.3); WHITE BLOOD COUNT 5.08 K/uL (4.8-10.8)
[2017-10-27] MEDS: INSULIN ASPART 100 UNITS/ML 3 ML PEN SC SCH ×4 (08:14→21:20)
[2017-10-27] MEDS: AMOXICILLIN/CLAVULANATE TAB 875 MG TAB PO SCH (08:15)
[2017-10-27 08:35] LABS: CALCIUM 7.5 mg/dl (8.5-10.1); CREATININE 0.99 mg/dl (0.60-1.40); POTASSIUM 3.7 mmol/L (3.5-5.1)
[2017-10-27] MEDS: POLYETHYLENE (MIRALAX) 17 GM PACK PO SCH (09:00)
[2017-10-27] MEDS: METOPROLOL SUCC 25MG EXT REL TAB PO SCH ×2 (09:17→21:18)
[2017-10-27] MEDS: ALBUTEROL HFA 8 GM INHALER INH PRN ×3 (09:17→23:44)
[2017-10-27] MEDS: VENLAFAXINE HCL XR 75 MG CAPXR PO SCH (09:18)
[2017-10-27] MEDS: ASCORBIC ACID 500 MG TAB PO SCH (09:18)
[2017-10-27] MEDS: MULTIVITAMIN TAB PO SCH (09:18)
[2017-10-27] MEDS: CLOPIDOGREL BISULFATE 75 MG TAB PO SCH (09:19)
[2017-10-27] MEDS: ATORVASTATIN 40 MG TAB PO SCH (09:20)
[2017-10-27] MEDS: ENOXAPARIN 40 MG/0.4 ML SYR SQ SCH (09:20)
[2017-10-27] MEDS: IPRATROPIUM BROMIDE/ALBUTEROL respimat INH INH SCH ×4 (09:21→21:17)
[2017-10-27] MEDS: PANTOprazole INJ 40 MG in SYRINGE 0 ML IV SCH ×2 (11:02→21:16)
[2017-10-27] MEDS ORDERED: OPTIRAY 320 IV PRN (12:30)
--- NOTE | 2017-10-27 13:28 | Gastrointestinal Consultation ---
Gastrointestinal Consultation Date of Consultation: Oct 27, 2017 Attending Physician: Sorin Barger Consulting Physician: Fritz Maxwell Reason for Consultation: Anemia History of Present Illness Patient is a 77 year old male who was brought to ED by family for "flu like symptoms". He was c/o feeling feverish, having body aches, acting confused and having weakness for several days. Had appeared to be restless and c/o not feeling "comfortable" but unable to pin point any certain pain in body parts. Had been on Bactrim for last 6 days for hematuria presumed to be from UTI. Urine cx here negative. Upon eval, noted BS was 350. Cr 1.4 up from baseline but after hydration now normal. Hgb initially 13 now down to 8. He denies any abd pain, n/v. Appetite seems at baseline per his ht's report. He did notice black colored semi formed stools once a while but so far stools in here had been brown. Renal u/s, CT head negative. CXR ? pneumonitis on RUL area, he does have emphysema Last EGD/Colonoscopy [place] [address] Arteaga - signs of GERD and colonic diverticulosis. Past Medical/Surgical History Medical Problems: (1) Hyponatremia Status: Acute (2) Medication side effect Status: Acute (3) SOB (shortness of breath) Status: Acute (4) TIA (transient ischemic attack) Status: Acute (5) Troponin level elevated Status: Acute (6) Weakness Status: Acute Past Medical History: See above , COPD, DM , hx of pneumonia Past Surgical History: Lumbar discectomy CVA Hematuria Family History Cancer Diabetes mellitus Heart disease Hypertension Lung disease Social History Smoking Status: Former Smoker Alcohol Use: none Drug Use: none Marital Status: Housing Status: lives with family Occupation Status: retired Allergies Coded Allergies: Levofloxacin (Verified Adverse Reaction, Unknown, fidgety and anxiety, ) Current Medications Home Meds and Scripts Medications Dose Route/Sig Max Daily Dose Days Date Category Dose Instructions Atorvastatin Calcium (Atorvastatin) 40 Mg Tab 40 Mg PO DAILY 10/25/17 Reported Ventolin Hfa (Albuterol) 200 Puffs/34372 Mcg Aers 2 Puffs INH Q4-6HRS PRN 10/25/17 Reported Effexor Extended Rel (Venlafaxine Hcl) 75 Mg Capcr 75 Mg PO DAILY 10/25/17 Reported TAKE THIS MEDICATION ONCE DAILY WITH FOOD Clopidogrel (Clopidogrel Bisulfate) 75 Mg Tab 75 Mg PO QAM 10/25/17 Reported Levothyroxine Sodium 100 Mcg Tab 100 Mcg PO DAILY 10/25/17 Reported Novolog Flexpen (Insulin Aspart) 100 Units/Ml Inj 1 Dose SC UD 10/25/17 Reported ADMINISTER 10 UNITS BEFORE BREAKFAST, 15 UNITS BEFORE LUNCH AND 20 UNITS BEFORE EVENING MEAL Dicyclomine Hcl 20 Mg Tab 20 Mg PO BID 10/25/17 Reported Edex (Alprostadil (Vasodilator)) 20 Mcg Kit 1 Dose INJ UD 10/16/17 Reported Hydromet 5-1.5 mg/5Ml (Hydrocodone Bit/Homatropine Methylb) 5 Ml/Cup Syrp 5 Ml PO BID PRN 10/16/17 Reported Ondansetron HCl (Ondansetron) 4 Mg Tab 4 Mg PO Q8 PRN 10/16/17 Reported Bactrim Ds 800MG/160MG (Sulfamethoxazole-Trimethoprim) 1 Tab Tab 1 Tab PO BID 16 10/16/17 Reported SCRIPT FILLED 10/17/2017, TAKE DIRECTED UNTIL GONE Metoclopramide Hcl 5 Mg Tab 5 Mg PO DAILYBB 10/16/17 Reported TAKE THIS MEDICATION 30 MINUTES BEFORE BREAKFAST Protonix (Pantoprazole) 40 Mg Tab 40 Mg PO DAILY 08/27/17 Reported Levalbuterol Tartrate Hfa (Levalbuterol Tartrate) 45 Mcg/Act Aer 1 Puff INH Q6H PRN 08/27/17 Reported Lantus Solostar (Insulin Glargine) 100 Unit/Ml Inj 30 Units SC HS 08/27/17 Reported Miralax (Polyethylene) 17 Gm Pow 17 Gm PO DAILY 04/11/17 Reported Buspirone Hcl 7.5 Mg Tab 7.5 Mg PO TID PRN 04/11/17 Reported Metoprolol Succinate ER (Metoprolol Succinate) 25 Mg Tabcr 25 Mg PO BID 07/27/15 Reported Multivitamin (Multivitamins) Tab 1 Tab PO DAILY 10/02/14 Reported Vitamin C (Ascorbic Acid) 500 Mg Tab 500 Mg PO DAILY 09/02/14 Reported Symbicort 160/4.5 Inhaler (Budesonide/Formoterol Fumarate) 120 Puffs/ Aero 2 Puffs INH BID 09/02/14 Reported RINSE MOUTH AFTER USE. Review of Systems Constitutional: + weakness, No fever, No chills Respiratory: + cough, No shortness of breath Cardiac: No chest pain Abdomen: + see HPI, No pain, No nausea, No vomiting Neuro: + see HPI Physical Exam Date Time Temp Pulse Resp B/P (MAP) Pulse Ox O2 Delivery O2 Flow Rate FiO2 10/27/17 09:00 Room Air 10/27/17 07:52 36.8 93 20 130/67 (88) 95 Room Air 10/27/17 00:10 37.0 101 24 123/69 (87) 92 Room Air 10/26/17 23:30 Room Air 10/26/17 20:46 71 120/60 (80) 10/26/17 16:05 37.0 82 18 101/58 (72) 94 Room Air 10/26/17 16:02 94 Room Air 10/26/17 15:45 82 94 General Appearance: WD/WN, no apparent distress (but appears restless) Eyes: normal inspection, PERRL, EOMI Neck: supple, no JVD, trachea midline Respiratory/Chest: normal breath sounds, no respiratory distress, no accessory muscle use Cardiovascular: regular rate, rhythm, no gallop, no murmur Abdomen: normal bowel sounds, non tender, soft Extremities: normal inspection, no pedal edema, no calf tenderness Neurologic/Psych: alert, normal mood/affect, oriented x 3 Skin: normal color, no jaundice, no rash Laboratory Results Last 24 Hours Test 10/26/17 16:25 10/26/17 20:03 10/27/17 07:44 10/27/17 07:49 Bedside Glucose 207 mg/dl 232 mg/dl 165 mg/dl White Blood Count 5.08 K/uL Red Blood Count 3.27 M/uL Hemoglobin 8.7 g/dL Hematocrit 26.4 % Mean Corpuscular Volume 80.7 fL Mean Corpuscular Hemoglobin 26.6 pg Mean Corpuscular Hemoglobin Concent 33.0 g/dl RDW Standard Deviation 42.5 fL RDW Coefficient of Variation 14.4 % Platelet Count 167 K/uL Mean Platelet Volume 8.8 fL Erythrocyte Sedimentation Rate 68 mm/hr Sodium Level 131 mmol/L Potassium Level 3.7 mmol/L Chloride Level 102 mmol/L Carbon Dioxide Level 20 mmol/L Anion Gap 9.0 mmol/L Blood Urea Nitrogen 15 mg/dl Creatinine 0.99 mg/dl Est Creatinine Clear Calc Drug Dose 65.4 ml/min Estimated GFR () 85.4 Estimated GFR (Non- 73.7 BUN/Creatinine Ratio 15.2 Random Glucose 151 mg/dl Calcium Level 7.5 mg/dl Test 10/27/17 08:32 10/27/17 11:35 Iron Level 12 mcg/dl Total Iron Binding Capacity 242 mcg/dl Transferrin 199 mg/dl Transferrin % Saturation 4 % Ferritin 115.8 ng/ml Vitamin B12 Level 325 pg/mL Folate 12.71 ng/mL Bedside Glucose 204 mg/dl Impression Patient is a 77 year old male admitted for "flu like symptoms" though flu negative, having restlessness, weakness. BS noted to be elevated on admission along w some dehydration - resolved. GI consulted as pt's H/H is decreasing initially now 06/26. He noted black stools a few times but normal stools while here. No other active s/s of GI bleeding. Last endoscopic eval via EGD/ Colonoscopy by Dr. Arteaga in 2011 relatively unremarkable. Plan - Monitor H/H and transfuse prn - Correct Na - Check iron panel - Agree w CT abd/pelvis by primary team. - Family prefer to hold off on endoscopic workup for now unless pt develops worsening anemia or active GI bleeding. Will monitor and help arrange f/u w Dr. Ivory ([facility]) upon DC. ATTESTATION: I have performed a history and physical examination of this patient and reviewed the electronic record. Specifically, on physical examination abdomen is soft and nontender. I have discussed the case with RONNIE Hummel. The above note reflects my findings, conclusions, and recommendations. Fritz Maxwell MD
[2017-10-27] MEDS ORDERED: BENZONATATE 100MG CAP PO PRN (13:30)
--- NOTE | 2017-10-27 13:38 | DIAGNOSTIC IMAGING REPORT ---
CT SCAN OF THE ABDOMEN AND PELVIS WITH IV CONTRAST CLINICAL HISTORY: Generalized abdominal pain. COMPARISON STUDY: Abdominal CT dated 10/16/2017. Renal ultrasound dated 10/25/2017. TECHNIQUE: Following the IV administration of 93 cc of Optiray 320, CT scan of the abdomen and pelvis is performed from the lung bases to the proximal femora. Images are reviewed in the axial, sagittal, and coronal planes. IV contrast was administered without complication. A dose lowering technique was utilized adhering to the principles of ALARA. CT DOSE: 888.41 mGycm FINDINGS: Lung bases: The heart is normal in size and without pericardial effusion. Tree-in-bud airspace opacities are present at both lung bases. A 4 mm left lower lobe nodule is seen on image #20. Additional nodular densities are also similar to previous. There is a tiny hiatal hernia. Liver: The contrast-enhanced liver is normal in size, contour, and attenuation. There is no intrahepatic biliary ductal dilatation. The hepatic veins and portal veins are patent. A 12 mm cyst is noted in the left hepatic lobe. Periportal edema is identified. Gallbladder: Contracted and grossly unremarkable. There is trace pericholecystic fluid. Spleen: The spleen is mildly enlarged measuring 13.6 cm in length. Pancreas: Moderately atrophic and grossly unremarkable. Adrenal glands: Unremarkable. Kidneys: The contrast enhanced kidneys demonstrate mild cortical atrophy and are without hydronephrosis. The kidneys enhance symmetrically. A 2.2 cm cyst is present in the left upper pole. Additional subcentimeter cortical hypodensities also likely represent cysts but are too small for definitive characterization. Abdominal vasculature: The abdominal aorta is normal in course and caliber noting moderate atherosclerotic calcification. Bowel: There is mild colonic diverticulosis without CT evidence of acute diverticulitis. No bowel obstruction is seen. A portion of the sigmoid colon is contained within a left inguinal hernia. The appendix is not visualized. Peritoneum: There is no intraperitoneal free air. There is trace free fluid in the pelvis. There is a small fat-containing umbilical hernia. Lymphadenopathy: None. Pelvic viscera: The prostate gland is enlarged and heterogeneous. There is median lobe hypertrophy. There is a large mass lesion identified involving the posterior left wall of the bladder. This measures 3.1 x 2.6 cm as seen on image #312. There are bilateral fat-containing inguinal hernias. A component of the sigmoid colon is present within the left inguinal hernia. Skeletal structures: The skeletal structures are osteopenic. Moderate lumbosacral spondylosis is observed. 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 No lytic or blastic lesions are seen. IMPRESSION: 1. There is a 3.1 cm enhancing mass lesion involving the left posterior wall of the bladder. This should be considered bladder neoplasm until proven otherwise. Follow-up with urology is recommended. 2. There is no evidence of metastatic disease in the abdomen or pelvis. 3. The gallbladder is contracted and grossly unremarkable. 4. Hepatic periportal edema is noted and there is trace pericholecystic fluid as well as trace free fluid in the cul-de-sac. This is of indeterminant significance and may be related to hydration status. Clinical correlation will be required. 5. Tree-in-bud airspace opacities are present both lung bases, likely representing an atypical infectious/inflammatory process. 6. There are bilateral inguinal hernias. The left inguinal hernia contains a small segment of nonobstructed sigmoid colon. 7. Mild colonic diverticulosis without CT evidence of acute diverticulitis. 8. Mild splenomegaly. 9. Additional findings as above. Electronically signed by: Vega Johnston M.D. 10/27/2017 1:37 PM Dictated Date/Time: 10/27/2017 1:26 PM
[2017-10-27] MEDS: GUAIFENESIN SUGAR FREE 200 MG/10 ML UDC PO PRN (15:59)
--- NOTE | 2017-10-27 16:35 | Progress Note ---
Subjective Date of Service: Oct 27, 2017. Subjective this pt did have some sundowning last pm, did receive haldol. he appears anemic as is pale, has no abdominal pain or melena Problem List Medical Problems: (1) Hyponatremia Status: Acute (2) Medication side effect Status: Acute (3) SOB (shortness of breath) Status: Acute (4) TIA (transient ischemic attack) Status: Acute (5) Troponin level elevated Status: Acute (6) Weakness Status: Acute Review of Systems Constitutional: No fever, No chills Respiratory: No cough, No shortness of breath Cardiac: No chest pain, No edema Abdomen: No pain, No nausea, No vomiting, No diarrhea Male : No dysuria, No urinary frequency Psychiatric: No depression symptoms, No anxiety Objective Vital Signs Date Time Temp Pulse Resp B/P (MAP) Pulse Ox O2 Delivery O2 Flow Rate FiO2 10/27/17 15:05 36.8 82 18 108/49 (68) 96 Room Air 10/27/17 09:00 Room Air 10/27/17 07:52 36.8 93 20 130/67 (88) 95 Room Air 10/27/17 00:10 37.0 101 24 123/69 (87) 92 Room Air 10/26/17 23:30 Room Air 10/26/17 20:46 71 120/60 (80) Physical Exam General Appearance: WD/WN, + mild distress Eyes: normal inspection, sclerae normal Respiratory/Chest: chest non-tender, lungs clear, normal breath sounds Cardiovascular: regular rate, rhythm, no murmur Abdomen: normal bowel sounds, non tender, soft Extremities: no pedal edema, no calf tenderness Neurologic/Psychiatric: alert, oriented x 3 Laboratory Results Last 24 Hours Test 10/26/17 16:25 10/26/17 20:03 10/27/17 07:44 10/27/17 07:49 Bedside Glucose 207 mg/dl 232 mg/dl 165 mg/dl White Blood Count 5.08 K/uL Red Blood Count 3.27 M/uL Hemoglobin 8.7 g/dL Hematocrit 26.4 % Mean Corpuscular Volume 80.7 fL Mean Corpuscular Hemoglobin 26.6 pg Mean Corpuscular Hemoglobin Concent 33.0 g/dl RDW Standard Deviation 42.5 fL RDW Coefficient of Variation 14.4 % Platelet Count 167 K/uL Mean Platelet Volume 8.8 fL Erythrocyte Sedimentation Rate 68 mm/hr Sodium Level 131 mmol/L Potassium Level 3.7 mmol/L Chloride Level 102 mmol/L Carbon Dioxide Level 20 mmol/L Anion Gap 9.0 mmol/L Blood Urea Nitrogen 15 mg/dl Creatinine 0.99 mg/dl Est Creatinine Clear Calc Drug Dose 65.4 ml/min Estimated GFR () 85.4 Estimated GFR (Non- 73.7 BUN/Creatinine Ratio 15.2 Random Glucose 151 mg/dl Calcium Level 7.5 mg/dl Test 10/27/17 08:32 10/27/17 11:35 Iron Level 12 mcg/dl Total Iron Binding Capacity 242 mcg/dl Transferrin 199 mg/dl Transferrin % Saturation 4 % Ferritin 115.8 ng/ml Vitamin B12 Level 325 pg/mL Folate 12.71 ng/mL Bedside Glucose 204 mg/dl Assessment and Plan 77 M presents with chills, restlessness and general ill feeling. had sundowning last evening and no to baseline and family is concerned Anemic, did check and is very iron deficient, CT scan of abdomen did reveal possible bladder mass, not enough significant hematuria to suggest this as cause with complaints of joint pain ESR no elevated enought to consider PMR, no complaints after using toradol Ct also comments on tree in bud appearance of bases concerns for pneumonitis or atypical infection, will change augmentin to azithromycin Restless ness, improved with stooping kassie and francoise did have some sundowning will stop seroquel DM stable with basal bolus and ssi along with diabetic diet Cerebrovascular risk reduction with history of stroke, will continue plavix and aspirin COPD will add combivent and continue symbicort clinically stable at this time lovenox was stopped with anemia adding scd's
[2017-10-27] MEDS: AZITHROMYCIN IV 500 MG in DEXTROSE 5% 250ML 250 ML IV SCH (16:53)
[2017-10-27] MEDS: FORMOTEROL FUMA NEBULIZER SOLN 20 MCG/2 ML VIAL INH SCH ×2 (17:27→18:57)
[2017-10-27] MEDS: LORAZEPAM INJ 1 MG in SYRINGE 0.5 ML IV PRN (17:27)
[2017-10-27] MEDS: ALBUT/IPRATROP 3MG/0.5MG NEB 3 ML VIAL INH PRN (17:28)
[2017-10-27 19:08] LABS: HEMATOCRIT 27.6 % (42-52); HEMOGLOBIN 9.1 g/dL (14.0-18.0)
[2017-10-27] MEDS ORDERED: NURSING VERBAL MED ORDER ONE (20:45)
[2017-10-27] MEDS: LORAZEPAM 1 MG TAB PO SCH (21:16)
[2017-10-27] MEDS: INSULIN GLARGINE SOLOSTAR 100 UNITS/ML 3 ML PEN SC SCH (21:21)
[2017-10-28] VITALS (10 sets, daily range): BP systolic 109–156; BP diastolic 49–78; PULSE 87–133; TEMP 36.4–36.8; O2SAT 93–99
[2017-10-28] MEDS: IPRATROPIUM BROMIDE/ALBUTEROL respimat INH INH SCH ×4 (01:54→12:28)
[2017-10-28] MEDS: LEVOTHYROXINE 100 MCG TAB PO SCH (05:51)
[2017-10-28] MEDS: FORMOTEROL FUMA NEBULIZER SOLN 20 MCG/2 ML VIAL INH SCH (06:54)
[2017-10-28 08:06] LABS: HEMATOCRIT 27.7 % (42-52); HEMOGLOBIN 9.2 g/dL (14.0-18.0); MEAN CELL VOLUME 80.8 fL (80-100); MEAN CORPUSCULAR HEMOGLOBIN 26.8 pg (25-34); MEAN CORPUSCULAR HGB CONC 33.2 g/dl (32-36); MEAN PLATELET VOLUME 8.7 fL (7.4-10.4); PLATELET COUNT 208 K/uL (130-400); RED CELL DISTRIBUTION WIDTH CV 14.5 % (11.5-14.5); RED CELL DISTRIBUTION WIDTH SD 42.5 fL (36.4-46.3); WHITE BLOOD COUNT 4.44 K/uL (4.8-10.8)
[2017-10-28] MEDS: PANTOprazole INJ 40 MG in SYRINGE 0 ML IV SCH (08:09)
[2017-10-28] MEDS: BUDESONIDE/FORMOTEROL FUMARATE 160/4.5 60 PUFFS/INHALER INH SCH ×2 (08:09→19:27)
[2017-10-28] MEDS: AZITHROMYCIN IV 500 MG in DEXTROSE 5% 250ML 250 ML IV SCH (08:09)
[2017-10-28] MEDS: ALBUTEROL HFA 8 GM INHALER INH PRN (08:13)
[2017-10-28] MEDS: VENLAFAXINE HCL XR 75 MG CAPXR PO SCH (08:23)
[2017-10-28] MEDS: ATORVASTATIN 40 MG TAB PO SCH (08:23)
[2017-10-28] MEDS: MULTIVITAMIN TAB PO SCH (08:24)
[2017-10-28] MEDS: METOPROLOL SUCC 25MG EXT REL TAB PO SCH (08:24)
[2017-10-28] MEDS: CLOPIDOGREL BISULFATE 75 MG TAB PO SCH (08:24)
[2017-10-28] MEDS: ASCORBIC ACID 500 MG TAB PO SCH (08:25)
[2017-10-28] MEDS: POLYETHYLENE (MIRALAX) 17 GM PACK PO SCH (08:25)
[2017-10-28] MEDS: GUAIFENESIN SUGAR FREE 200 MG/10 ML UDC PO PRN ×2 (08:30→21:50)
[2017-10-28 08:39] LABS: CALCIUM 8.1 mg/dl (8.5-10.1); CREATININE 0.93 mg/dl (0.60-1.40); POTASSIUM 3.4 mmol/L (3.5-5.1)
[2017-10-28] MEDS: INSULIN ASPART 100 UNITS/ML 3 ML PEN SC SCH ×4 (08:41→21:00)
[2017-10-28] MEDS: ALBUT/IPRATROP 3MG/0.5MG NEB 3 ML VIAL INH PRN (08:56)
[2017-10-28] MEDS ORDERED: METOPROLOL TARTRATE 1 MG/ML VIAL IV PRN (09:45)
[2017-10-28] MEDS ORDERED: IRON SUCROSE INJ 100 MG in SODIUM CHLORIDE 0.9% 100ML 100 ML IV SCH (10:00)
[2017-10-28] MEDS ORDERED: MAGNESIUM SULFATE 1GM / D5W 1 GM in PREMIXED IN D5W 100 ML IV ONE (10:00)
[2017-10-28] MEDS: METHYLPREDNISOLONE IV 40 MG in SYRINGE 0 ML IV SCH ×2 (10:09→19:25)
[2017-10-28] MEDS: POTASSIUM CHLR 10 MEQ / WTR 10 MEQ in PREMIXED WATER 100 ML IV SCH ×3 (10:31→12:46)
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
[2017-10-28] MEDS ORDERED: OPTIRAY 320 IV PRN (11:15)
[2017-10-28] MEDS ORDERED: DILTIAZEM BOLUS / DRIP IV STA (11:32)
--- NOTE | 2017-10-28 12:02 | Cardiology Consultation ---
Cardiology Consultation Date of Consultation: Oct 28, 2017. Requesting Physician: Dr. Barger Attending Physician: Dr. Joe Reason for Consultation: Atrial fibrillation with RVR Pt evaluation today including: conversation w/ patient, conversation w/ family , physical exam, chart review, lab review, review of studies, conversation w/ hospice consultant, review of inpatient medication list, conversation w/ attending History of Present Illness Mr. Falk is a 77-year-old male with no known cardiac history who presented to the ED on 10/25/2017 with flu like symptoms including generalized body aches , fevers/chills, and weakness. His hospital course has been complicated by anemia with a drop in his hemoglobin to 8.7. He was discovered to be iron deficient and is currently being treated with iron supplementation. A CT scan was also concerning for pneumonitis or atypical infection, and he has been initiated on appropriate medical therapy. The CT scan also identified a bladder mass, and he will potentially be undergoing a cysto with transurethral resection of the bladder tumor in the near future. From a cardiovascular standpoint, he was found to go into atrial fibrillation with RVR this morning, 10/28/2017. His rate has been up to the 150s-160s at times. He has been continued on his Toprol XL 25 mg BID, which was his [employer] dosing. He has been treated with IV lopressor 5 mg as well for better rate control. He is not currently anticoagulated due to his anemia. The patient is currently being seen in his room in [facility]. His daughter who accompanies him in the room helps to provide some of the history. The patient reports that he is asymptomatic with the atrial fibrillation. He denies any palpitations, lightheadedness, or presyncope. He notes some chest wall pain in association with coughing. He denies any anginal symptoms. He notes shortness of breath as well as wheezing and a cough productive of yellow mucous over the last couple of days. He has not had any melena, hematochezia, or hematuria during this hospitalization, but he reports some black stools about a week ago. He denies cerebrovascular symptoms. He denies nausea, vomiting, abdominal pain, or diarrhea. He denies claudication symptoms. Review of systems: As noted in HPI. All other 10 point ROS reviewed and otherwise negative. Past Medical/Surgical History 1. COPD 2. History of CVA in 03/2017 3. Hypothyroidism 4. Type 2 diabetes mellitus, on insulin 5. Hypercholesterolemia 6. Hypertension 7. Anxiety with depression 8. Irritable bowel syndrome 9. GERD 10. S/P Lumbar surgery 15-20 years ago Family History Cancer Diabetes mellitus Heart disease Hypertension Lung disease His nephew had CABG in his 50s. His brother also had CABG in his 50s. Social History Smoking Status: Former Smoker History of Alcohol Use: No He is with 2 children. He does not have any grandchildren. 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 He quit smoking 40 years ago. He previously smoked up to 1.5 ppd for 20 years. He denies alcohol or illicit drug use. Review of Systems Respiratory: + cough, No shortness of breath Cardiac: No chest pain Allergies Coded Allergies: Levofloxacin (Verified Adverse Reaction, Unknown, fidgety and anxiety, ) Medications Current Inpatient Medications Medications (Trade) Dose Ordered Sig/Rose Mary Route Start Time Stop Time Status Last Admin Dose Admin Albuterol (Ventolin Hfa Inhaler) 2 puffs QIDR PRN INH 10/25/17 07:45 11/24/17 07:44 10/28/17 08:13 2 PUFFS Ascorbic Acid (Vitamin C Tab) 500 mg DAILY PO 10/25/17 10:45 11/24/17 10:44 10/28/17 08:25 500 MG Atorvastatin Calcium (Lipitor Tab) 40 mg DAILY PO 10/25/17 10:45 11/24/17 10:44 10/28/17 08:23 40 MG Budesonide/ Formoterol Fumarate (Symbicort 160/ 4.5 Inh) 2 puffs BID INH 10/25/17 09:00 11/24/17 08:59 10/28/17 08:09 2 PUFFS Clopidogrel Bisulfate (plAVix TAB) 75 mg QAM PO 10/25/17 10:45 11/24/17 10:44 10/28/17 08:24 75 MG Insulin Aspart (novoLOG ASPART) ACHS SC 10/25/17 11:00 11/24/17 10:59 10/27/17 21:20 5 UNITS Levothyroxine Sodium (Synthroid Tab) 100 mcg DAILYBB PO 10/26/17 06:30 11/25/17 06:29 10/28/17 05:51 100 MCG Metoprolol Succinate (Toprol Xl Tab) 25 mg BID PO 10/25/17 10:45 11/24/17 10:44 10/28/17 08:24 25 MG Multivitamins (Multivitamin Tab) 1 tab DAILY PO 10/25/17 10:45 11/24/17 10:44 10/28/17 08:24 1 TAB Ondansetron HCl (Zofran Tab) 4 mg Q8 PRN PO 10/25/17 10:30 11/24/17 10:29 Polyethylene (Miralax Powder Packet) 17 gm DAILY PO 10/25/17 10:45 11/24/17 10:44 10/28/17 08:25 17 GM Venlafaxine HCl (effeXOR EXTENDED REL CAP) 75 mg DAILY PO 10/25/17 10:45 11/24/17 10:44 10/28/17 08:23 75 MG Acetaminophen (Tylenol Tab) 650 mg Q4H PRN PO 10/25/17 08:30 11/24/17 08:29 Al Hydrox/Mg Hydrox/Simethicone (Maalox Max Susp) 15 ml Q4H PRN PO 10/25/17 08:30 11/24/17 08:29 Polyethylene (Miralax Powder Packet) 17 gm DAILY PRN PO 10/25/17 08:30 11/24/17 08:29 Ondansetron HCl (Zofran Inj) 4 mg Q6H PRN IV 10/25/17 08:30 11/24/17 08:29 10/27/17 05:52 4 MG Lorazepam (Ativan Tab) 0.5 mg Q6 PRN PO 10/25/17 08:45 11/24/17 08:44 10/26/17 21:49 0.5 MG Oxycodone HCl (Roxicodone Immediate Rel Tab) 10 mg Q6 PRN PO 10/25/17 08:45 11/08/17 08:44 10/26/17 06:09 10 MG Glucose (Glucose 40% Gel) 15-30 GRAMS 15 GRAMS... UD PRN PO 10/25/17 10:45 11/24/17 10:44 Glucose (Glucose Chew Tab) 4-8 Tablets 4 Tabl... UD PRN PO 10/25/17 10:45 11/24/17 10:44 Dextrose (Dextrose 50% 50ML Syringe) 25-50ML OF 50% DW IV FOR... UD PRN IV 10/25/17 10:45 11/24/17 10:44 Glucagon (Glucagon Inj) 1 mg UD PRN SQ 10/25/17 10:45 11/24/17 10:44 Lorazepam 0.5 mg/ Syringe 0.5 ml @ 0.5 mls/min Q4H PRN IV 10/25/17 11:00 11/24/17 10:59 Lorazepam 1 mg/ Syringe 1 ml @ 1 mls/min Q4H PRN IV 10/25/17 11:00 11/24/17 10:59 10/27/17 17:27 1 MLS/MIN Miscellaneous (Iv Fluids Completed) 1 ea PRN PRN N/A 10/25/17 11:15 10/25/18 11:14 Pantoprazole Sodium 40 mg/ Syringe 10 ml @ 5 mls/min DAILY@,21 IV 10/27/17 09:00 11/26/17 08:59 10/28/17 08:09 5 MLS/MIN Guaifenesin (Robitussin Sugar Free Syrup) 200 mg Q6H PRN PO 10/27/17 13:15 11/26/17 13:14 10/28/17 08:30 200 MG Benzonatate (Tessalon Perles Cap) 100 mg Q8H PRN PO 10/27/17 13:30 11/26/17 13:29 10/27/17 21:16 100 MG Ioversol (Optiray 320) 100 ml UD PRN IV 10/27/17 12:30 10/31/17 12:29 Azithromycin 500 mg/Dextrose 255 ml @ 125 mls/hr DAILY IV 10/27/17 16:30 11/03/17 16:29 10/28/17 08:09 125 MLS/HR Albuterol/ Ipratropium (Combivent Respimat Inh) 1 puffs Q4H INH 10/27/17 17:00 11/24/17 08:59 10/28/17 08:08 1 PUFFS Formoterol Fumarate (Perforomist 20MCG/2ML Neb Soln) 20 mcg BIDR INH 10/27/17 20:00 11/26/17 19:59 10/28/17 06:54 20 MCG Lorazepam (Ativan Tab) 1 mg HSZ PO 10/27/17 22:00 11/26/17 21:59 10/27/17 21:16 1 MG Albuterol/ Ipratropium (Duoneb) 3 ml Q2H PRN INH 10/27/17 17:15 11/26/17 17:14 10/28/17 08:56 3 ML Insulin Glargine (Lantus Solostar Pen) 36 units HS SC 10/28/17 21:00 11/24/17 20:59 Methylprednisolone Sodium Succinate 40 mg/Syringe 0.64 ml @ 1.5 mls/min Q12 IV 10/28/17 10:00 11/27/17 09:59 10/28/17 10:09 1.5 MLS/MIN Iron Sucrose 100 mg/Sodium Chloride 105 ml @ 420 mls/hr TODAY@1000 IV 10/28/17 10:00 10/28/17 12:00 10/28/17 10:09 420 MLS/HR Metoprolol Tartrate (Lopressor Iv) 5 mg Q4 PRN IV 10/28/17 09:45 11/27/17 09:44 10/28/17 10:09 5 MG Potassium Chloride 10 meq/ Prmx 100 ml @ 100 mls/hr Q1H IV 10/28/17 10:00 10/28/17 12:59 10/28/17 10:31 100 MLS/HR Ioversol (Optiray 320) 100 ml UD PRN IV 10/28/17 11:15 11/01/17 11:14 UNV Physical Exam Vital Signs Past 12 Hours Date Time Temp Pulse Resp B/P (MAP) Pulse Ox O2 Delivery O2 Flow Rate FiO2 10/28/17 10:26 36.8 129 20 112/66 (81) 93 Room Air 10/28/17 10:15 Room Air 10/28/17 10:09 145 112/68 10/28/17 09:30 109 24 119/63 (81) 94 Room Air 10/28/17 09:30 36.6 109 24 94 10/28/17 09:03 97 24 94 Room Air 10/28/17 08:30 133 96 Room Air 10/28/17 08:00 Room Air 10/28/17 07:45 36.6 99 20 109/49 (69) 97 Room Air 10/28/17 06:55 97 20 94 Room Air 10/27/17 23:35 Room Air 10/27/17 23:22 36.7 84 18 121/66 (84) 95 Room Air Constitutional: Alert, oriented, in no acute distress HEENT: Head is atraumatic and normocephalic. EOMs intact. Sclera anicteric. Face is symmetric. No perioral cyanosis. Mucous membranes moist. Neck: Supple, no JVD, no carotid bruits Pulmonary: Normal respiratory effort, bibasilar crackles Cardiac: Tachycardic, irregular rhythm, normal S1 and S2, no gallops, no rubs, no obvious murmurs Extremities: No clubbing, cyanosis, or edema. Pulses intact Abdomen: Normal bowel sounds, soft, non-tender, no abdominal mass palpated Skin: He appears pale. No rash, no skin lesions Neurological: Oriented to person, place, and time Data Laboratory Results: Last 24 Hours Test 10/27/17 11:35 10/27/17 16:29 10/27/17 17:08 10/27/17 20:02 Bedside Glucose 204 mg/dl 200 mg/dl 221 mg/dl Hemoglobin 9.1 g/dL Hematocrit 27.6 % Test 10/28/17 07:31 10/28/17 07:50 10/28/17 09:55 Bedside Glucose 98 mg/dl White Blood Count 4.44 K/uL Red Blood Count 3.43 M/uL Hemoglobin 9.2 g/dL Hematocrit 27.7 % Mean Corpuscular Volume 80.8 fL Mean Corpuscular Hemoglobin 26.8 pg Mean Corpuscular Hemoglobin Concent 33.2 g/dl RDW Standard Deviation 42.5 fL RDW Coefficient of Variation 14.5 % Platelet Count 208 K/uL Mean Platelet Volume 8.7 fL Sodium Level 136 mmol/L Potassium Level 3.4 mmol/L Chloride Level 105 mmol/L Carbon Dioxide Level 21 mmol/L Anion Gap 9.0 mmol/L Blood Urea Nitrogen 9 mg/dl Creatinine 0.93 mg/dl Est Creatinine Clear Calc Drug Dose 69.6 ml/min Estimated GFR () 92.1 Estimated GFR (Non- 79.5 BUN/Creatinine Ratio 9.1 Random Glucose 99 mg/dl Calcium Level 8.1 mg/dl D-Dimer 2130 ug/L FEU Troponin I < 0.015 ng/ml Dobutamine stress echo 08/29/2017: Negative for ischemia at 98% MPHR. Resting echo with normal LV size and systolic function, EF 60-65%. No regional wall motion abnormalities. Mild concentric LVH. Type 1 diastolic dysfunction. Mild MR. EKG: Atrial fibrillation with rapid ventricular response rate of 117 bpm. Telemetry reviewed: Atrial fibrillation/flutter with rates as high as the 150s- 160s. He periodically has sinus beats. Assessment & Plan ASSESSMENT/PLAN: 1. Atrial fibrillation with RVR: He was found to have new onset atrial fibrillation with RVR this morning. He is asymptomatic with the arrhythmia, however, his rate is inadequately controlled. Will increase his PO Toprol XL to 50 mg BID for better rate control. He will also be initiated on a Diltiazem drip with hold parameters. If his rate becomes better controlled, would slowly wean the Diltiazem drip. Would also consider starting a Heparin drip this admission once safe from a bleeding standpoint. Given his elevated CHADSVASc score, long-term anticoagulation therapy is indicated for thromboembolic prophylaxis, but the initiation of an anticoagulant can be determined closer to discharge. The patient has already been ordered an echocardiogram as well. 2. Hypertension: BP has been well controlled. Will titrate his Toprol XL and add a Diltiazem drip for better rate control of his atrial arrhythmia. 3. Hypercholesterolemia: Continue Lipitor as prescribed. 4. Mitral regurgitation: Mild by echo in July. This can be monitored periodically over time. Thank you for allowing us to see this patient in consultation. The patient was discussed with Dr. Joe who will also be in to see the patient today. Addendum by Cardiology attending: Patient was seen and examined on 10/28/2017. Agree with above with following additions. Was noted to be in atrial fibrillation with rapid ventricular response and consultation was placed for cardiology by the primary service. He denied palpitations. His daughter stated that he did mention while having a coughing episode that he felt something in his chest but symptoms did not last throughout the entirety of his atrial fibrillation with rapid ventricular response. Therefore, he appears to be relatively asymptomatic from the atrial fibrillation. He denied angina or shortness of breath during AFib he was seen earlier today by Mrs. Shahrzad Almaraz PA-C. Shortly after her visit, he spontaneously converted to sinus rhythm. Exam notable for: Neck: No JVD Cardiac: Regular. Normal S1 and S2. No murmurs, rubs, or gallops. Lungs: Clear to auscultation bilaterally. Extremities: No edema. Telemetry personally reviewed. It was notable for atrial fibrillation with rapid ventricular response but is currently in sinus rhythm. ECG personally reviewed from 10/28/2017 at 9:21 a.m.: Intermittent sinus complexes with atrial runs verses short episodes of atrial fibrillation. Heart rate 117 beats per minute. ASSESSMENT/PLAN: 1. Paroxysmal atrial fibrillation: Does not appear to be overly symptomatic. Diagnosis was discussed with he and his family in detail. Multiple treatment strategies discussed. Recommend rate control strategy. Beta-edy has been titrated. Anticoagulation for stroke risk reduction was also discussed. There is concern for recent melena with anemia and also bladder abnormality with potential upcoming procedure. If/when safe from a bleeding standpoint, would consider anticoagulation for stroke risk reduction. 2. Disposition: Please call for any further questions or concerns. Dr. Phan will be available over the weekend for any questions or concerns.
[2017-10-28] MEDS ORDERED: METOPROLOL SUCC 25MG EXT REL TAB PO ONE (12:15)
--- NOTE | 2017-10-28 12:16 | Gastroenterology Progress Note ---
Progress Note Date of Service: Oct 28, 2017 Subjective Pt evaluation today including: conversation w/ patient, conversation w/ family , physical exam, chart review, lab review, review of inpatient medication list Pt feel ok, denies any abd pain, n/v. No black stools. H/H improving. 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 Review of Systems Constitutional: No fever, No chills Respiratory: No cough, No shortness of breath Cardiac: No chest pain Abdomen: No pain, No nausea, No vomiting Medications Current Inpatient Medications Medications (Trade) Dose Ordered Sig/Rose Mary Route Start Time Stop Time Status Last Admin Dose Admin Albuterol (Ventolin Hfa Inhaler) 2 puffs QIDR PRN INH 10/25/17 07:45 11/24/17 07:44 10/28/17 08:13 2 PUFFS Ascorbic Acid (Vitamin C Tab) 500 mg DAILY PO 10/25/17 10:45 11/24/17 10:44 10/28/17 08:25 500 MG Atorvastatin Calcium (Lipitor Tab) 40 mg DAILY PO 10/25/17 10:45 11/24/17 10:44 10/28/17 08:23 40 MG Budesonide/ Formoterol Fumarate (Symbicort 160/ 4.5 Inh) 2 puffs BID INH 10/25/17 09:00 11/24/17 08:59 10/28/17 08:09 2 PUFFS Clopidogrel Bisulfate (plAVix TAB) 75 mg QAM PO 10/25/17 10:45 11/24/17 10:44 10/28/17 08:24 75 MG Insulin Aspart (novoLOG ASPART) ACHS SC 10/25/17 11:00 11/24/17 10:59 10/27/17 21:20 5 UNITS Levothyroxine Sodium (Synthroid Tab) 100 mcg DAILYBB PO 10/26/17 06:30 11/25/17 06:29 10/28/17 05:51 100 MCG Multivitamins (Multivitamin Tab) 1 tab DAILY PO 10/25/17 10:45 11/24/17 10:44 10/28/17 08:24 1 TAB Ondansetron HCl (Zofran Tab) 4 mg Q8 PRN PO 10/25/17 10:30 11/24/17 10:29 Polyethylene (Miralax Powder Packet) 17 gm DAILY PO 10/25/17 10:45 11/24/17 10:44 10/28/17 08:25 17 GM Venlafaxine HCl (effeXOR EXTENDED REL CAP) 75 mg DAILY PO 10/25/17 10:45 11/24/17 10:44 10/28/17 08:23 75 MG Acetaminophen (Tylenol Tab) 650 mg Q4H PRN PO 10/25/17 08:30 11/24/17 08:29 Al Hydrox/Mg Hydrox/Simethicone (Maalox Max Susp) 15 ml Q4H PRN PO 10/25/17 08:30 11/24/17 08:29 Polyethylene (Miralax Powder Packet) 17 gm DAILY PRN PO 10/25/17 08:30 11/24/17 08:29 Ondansetron HCl (Zofran Inj) 4 mg Q6H PRN IV 10/25/17 08:30 11/24/17 08:29 10/27/17 05:52 4 MG Lorazepam (Ativan Tab) 0.5 mg Q6 PRN PO 10/25/17 08:45 11/24/17 08:44 10/26/17 21:49 0.5 MG Oxycodone HCl (Roxicodone Immediate Rel Tab) 10 mg Q6 PRN PO 10/25/17 08:45 11/08/17 08:44 10/26/17 06:09 10 MG Glucose (Glucose 40% Gel) 15-30 GRAMS 15 GRAMS... UD PRN PO 10/25/17 10:45 11/24/17 10:44 Glucose (Glucose Chew Tab) 4-8 Tablets 4 Tabl... UD PRN PO 10/25/17 10:45 11/24/17 10:44 Dextrose (Dextrose 50% 50ML Syringe) 25-50ML OF 50% DW IV FOR... UD PRN IV 10/25/17 10:45 11/24/17 10:44 Glucagon (Glucagon Inj) 1 mg UD PRN SQ 10/25/17 10:45 11/24/17 10:44 Lorazepam 0.5 mg/ Syringe 0.5 ml @ 0.5 mls/min Q4H PRN IV 10/25/17 11:00 11/24/17 10:59 Lorazepam 1 mg/ Syringe 1 ml @ 1 mls/min Q4H PRN IV 10/25/17 11:00 11/24/17 10:59 10/27/17 17:27 1 MLS/MIN Miscellaneous (Iv Fluids Completed) 1 ea PRN PRN N/A 10/25/17 11:15 10/25/18 11:14 Pantoprazole Sodium 40 mg/ Syringe 10 ml @ 5 mls/min DAILY@09,21 IV 10/27/17 09:00 11/26/17 08:59 10/28/17 08:09 5 MLS/MIN Guaifenesin (Robitussin Sugar Free Syrup) 200 mg Q6H PRN PO 10/27/17 13:15 11/26/17 13:14 10/28/17 08:30 200 MG Benzonatate (Tessalon Perles Cap) 100 mg Q8H PRN PO 10/27/17 13:30 11/26/17 13:29 10/27/17 21:16 100 MG Ioversol (Optiray 320) 100 ml UD PRN IV 10/27/17 12:30 10/31/17 12:29 Azithromycin 500 mg/Dextrose 255 ml @ 125 mls/hr DAILY IV 10/27/17 16:30 11/03/17 16:29 10/28/17 08:09 125 MLS/HR Albuterol/ Ipratropium (Combivent Respimat Inh) 1 puffs Q4H INH 10/27/17 17:00 11/24/17 08:59 10/28/17 08:08 1 PUFFS Formoterol Fumarate (Perforomist 20MCG/2ML Neb Soln) 20 mcg BIDR INH 10/27/17 20:00 11/26/17 19:59 10/28/17 06:54 20 MCG Lorazepam (Ativan Tab) 1 mg HSZ PO 10/27/17 22:00 11/26/17 21:59 10/27/17 21:16 1 MG Albuterol/ Ipratropium (Duoneb) 3 ml Q2H PRN INH 10/27/17 17:15 11/26/17 17:14 10/28/17 08:56 3 ML Insulin Glargine (Lantus Solostar Pen) 36 units HS SC 10/28/17 21:00 11/24/17 20:59 Methylprednisolone Sodium Succinate 40 mg/Syringe 0.64 ml @ 1.5 mls/min Q12 IV 10/28/17 10:00 11/27/17 09:59 10/28/17 10:09 1.5 MLS/MIN Metoprolol Tartrate (Lopressor Iv) 5 mg Q4 PRN IV 10/28/17 09:45 11/27/17 09:44 10/28/17 10:09 5 MG Potassium Chloride 10 meq/ Prmx 100 ml @ 100 mls/hr Q1H IV 10/28/17 10:00 10/28/17 12:59 10/28/17 10:31 100 MLS/HR Ioversol (Optiray 320) 100 ml UD PRN IV 10/28/17 11:15 11/01/17 11:14 Metoprolol Succinate (Toprol Xl Tab) 50 mg BID PO 10/28/17 21:00 11/24/17 10:44 Metoprolol Succinate (Toprol Xl Tab) 25 mg TODAY@1215 ONCE PO 10/28/17 12:15 10/28/17 12:16 Objective Vital Signs Date Time Temp Pulse Resp B/P (MAP) Pulse Ox O2 Delivery O2 Flow Rate FiO2 10/28/17 10:26 36.8 129 20 112/66 (81) 93 Room Air 10/28/17 10:15 Room Air 10/28/17 10:09 145 112/68 10/28/17 09:30 109 24 119/63 (81) 94 Room Air 10/28/17 09:30 36.6 109 24 94 10/28/17 09:03 97 24 94 Room Air 10/28/17 08:30 133 96 Room Air 10/28/17 08:00 Room Air 10/28/17 07:45 36.6 99 20 109/49 (69) 97 Room Air 10/28/17 06:55 97 20 94 Room Air 10/27/17 23:35 Room Air 10/27/17 23:22 36.7 84 18 121/66 (84) 95 Room Air 10/27/17 19:01 82 26 95 Room Air 10/27/17 17:28 88 26 96 Room Air 10/27/17 16:02 94 Room Air 10/27/17 15:05 36.8 82 18 108/49 (68) 96 Room Air Physical Exam General Appearance: WD/WN, no apparent distress Eyes: normal inspection, PERRL, EOMI Neck: supple, no JVD, trachea midline Respiratory/Chest: normal breath sounds, no respiratory distress, no accessory muscle use Cardiovascular: regular rate, rhythm, no gallop, no murmur Abdomen: normal bowel sounds, non tender, soft Extremities: normal inspection, no pedal edema, no calf tenderness Neurologic/Psych: alert, normal mood/affect, oriented x 3 Skin: normal color, no jaundice, no rash Laboratory Results Last 24 Hours Test 10/27/17 16:29 10/27/17 17:08 10/27/17 20:02 10/28/17 07:31 Bedside Glucose 200 mg/dl 221 mg/dl 98 mg/dl Hemoglobin 9.1 g/dL Hematocrit 27.6 % Test 10/28/17 07:50 10/28/17 09:55 10/28/17 11:33 White Blood Count 4.44 K/uL Red Blood Count 3.43 M/uL Hemoglobin 9.2 g/dL Hematocrit 27.7 % Mean Corpuscular Volume 80.8 fL Mean Corpuscular Hemoglobin 26.8 pg Mean Corpuscular Hemoglobin Concent 33.2 g/dl RDW Standard Deviation 42.5 fL RDW Coefficient of Variation 14.5 % Platelet Count 208 K/uL Mean Platelet Volume 8.7 fL Sodium Level 136 mmol/L Potassium Level 3.4 mmol/L Chloride Level 105 mmol/L Carbon Dioxide Level 21 mmol/L Anion Gap 9.0 mmol/L Blood Urea Nitrogen 9 mg/dl Creatinine 0.93 mg/dl Est Creatinine Clear Calc Drug Dose 69.6 ml/min Estimated GFR () 92.1 Estimated GFR (Non- 79.5 BUN/Creatinine Ratio 9.1 Random Glucose 99 mg/dl Calcium Level 8.1 mg/dl D-Dimer 2130 ug/L FEU Troponin I < 0.015 ng/ml Bedside Glucose 220 mg/dl Assessment and Plan Patient is a 77 year old male admitted for "flu like symptoms" though flu negative, having restlessness, weakness. BS noted to be elevated on admission along w some dehydration - resolved. GI consulted as pt's H/H is decreasing initially 13/39 now 06/26. He noted black stools a few times but normal stools while here. No other active s/s of GI bleeding. Last endoscopic eval via EGD/ Colonoscopy by Dr. Arteaga in [address] abd/pelvis obtained, revealed 3cm bladder mass. Urology following, plan on resection inpt vs outpt. His H/H is improving, no signs of active GI bleeding. Plans - Monitor H/H and transfuse prn - Check iron panel -> low, will give Ferrous Sulfate 325mg BID. - Will sign off. I have contacted Dr. Ivory ([facility]) office for f/u non emergent endoscopic eval to r/o GI bleeding given anemia upon pt's DC. ATTESTATION: I have performed a history and physical examination of this patient and reviewed the electronic record. Specifically, on physical examination there is no sign of active bleeding. I have discussed the case with RONNIE Hummel. The above note reflects my findings, conclusions, and recommendations. Fritz Maxwell MD
--- NOTE | 2017-10-28 12:16 | DIAGNOSTIC IMAGING REPORT ---
CT ANGIOGRAPHY OF THE CHEST, PULMONARY EMBOLUS PROTOCOL CLINICAL HISTORY: Shortness of breath. COMPARISON STUDY: Chest CT March 06, 2015 and chest radiograph October 25, 2017. TECHNIQUE: Following IV administration of 93 mL of Optiray-320, helical axial images of the chest were obtained utilizing the pulmonary embolus protocol. Maximal intensity projections and sagittal and coronal reformats were viewed on an independent 3D workstation. IV contrast was administered without complication. A dose lowering technique was utilized adhering to the principles of ALARA. CT DOSE: 337.16 mGy.cm FINDINGS: No pulmonary emboli are identified although the lower lobe segmental and subsegmental pulmonary arteries are suboptimally assessed due to respiratory motion. The size of the heart is normal. There is no evidence of thoracic aortic dissection. Note is made of a mildly enlarged subcarinal right hilar lymph nodes which are nonspecific. There are small bilateral pleural effusions. No pneumothorax is present. Evaluation of the lungs is suboptimal given respiratory motion artifact. There are scattered multifocal tree-in-bud nodules throughout the lungs. Similar findings were shown on prior studies. There has been interval prominence of mild subpleural opacities within both upper lobes. Diffuse bronchial wall thickening is noted. There may be interlobular septal thickening which suggests pulmonary edema. Upper abdomen is unremarkable. IMPRESSION: 1. No pulmonary emboli identified although lower lobe segmental and subsegmental pulmonary arteries suboptimally assessed due to respiratory motion artifact. 2. Scattered tree-in-bud nodules throughout the lungs. Similar findings were shown on prior studies and raise the possibility of an atypical mycobacterial infection. Mild subpleural groundglass opacities within the bilateral upper lobes suggest an infectious etiology. 3. Small bilateral pleural effusions with suspected mild interstitial edema. 4. Bronchial wall thickening which was shown on prior exams. 5. Mildly enlarged subcarinal right hilar lymph nodes which are nonspecific. Electronically signed by: Fam Pelayo M.D. 10/28/2017 12:15 PM Dictated Date/Time: 10/28/2017 11:57 AM
[2017-10-28] MEDS: LORAZEPAM INJ 1 MG in SYRINGE 0.5 ML IV PRN (12:17)
--- NOTE | 2017-10-28 15:00 | Progress Note ---
Subjective Date of Service: Oct 28, 2017. Subjective pt remains tearful and this am presented with afib rvr, has no history of this, but has been having intermittent flares of wheezing, did increase copd treatment and started steroids. He self converted to normal sinus rhythm. Problem List Medical Problems: (1) Hyponatremia Status: Acute (2) Medication side effect Status: Acute (3) SOB (shortness of breath) Status: Acute (4) TIA (transient ischemic attack) Status: Acute (5) Troponin level elevated Status: Acute (6) Weakness Status: Acute Review of Systems Constitutional: + weakness, + fatigue, No fever, No chills Respiratory: + cough, + dyspnea on exertion, No shortness of breath Cardiac: No chest pain, No edema Abdomen: + pain, + nausea, + vomiting Musculoskeletal: No joint pain, No muscle pain Male : No dysuria, No urinary frequency Neurologic: No memory loss, No paralysis Psychiatric: + depression symptoms, + anxiety Objective Vital Signs Date Time Temp Pulse Resp B/P (MAP) Pulse Ox O2 Delivery O2 Flow Rate FiO2 10/28/17 12:00 Room Air 10/28/17 10:26 36.8 129 20 112/66 (81) 93 Room Air 10/28/17 10:15 Room Air 10/28/17 10:09 145 112/68 10/28/17 09:30 109 24 119/63 (81) 94 Room Air 10/28/17 09:30 36.6 109 24 94 10/28/17 09:03 97 24 94 Room Air 10/28/17 08:30 133 96 Room Air 10/28/17 08:00 Room Air 10/28/17 07:45 36.6 99 20 109/49 (69) 97 Room Air 10/28/17 06:55 97 20 94 Room Air 10/27/17 23:35 Room Air 10/27/17 23:22 36.7 84 18 121/66 (84) 95 Room Air 10/27/17 19:01 82 26 95 Room Air 10/27/17 17:28 88 26 96 Room Air 10/27/17 16:02 94 Room Air 10/27/17 15:05 36.8 82 18 108/49 (68) 96 Room Air Physical Exam General Appearance: WD/WN, + mild distress Eyes: normal inspection, sclerae normal Neck: supple, no JVD Respiratory/Chest: chest non-tender, + rhonchi, + wheezing Cardiovascular: + tachycardia, + irregularly irregular Abdomen: normal bowel sounds, soft Extremities: no pedal edema, no calf tenderness Neurologic/Psychiatric: alert, oriented x 3 Laboratory Results Last 24 Hours Test 10/27/17 16:29 10/27/17 17:08 10/27/17 20:02 10/28/17 07:31 Bedside Glucose 200 mg/dl 221 mg/dl 98 mg/dl Hemoglobin 9.1 g/dL Hematocrit 27.6 % Test 10/28/17 07:50 10/28/17 09:55 10/28/17 11:33 White Blood Count 4.44 K/uL Red Blood Count 3.43 M/uL Hemoglobin 9.2 g/dL Hematocrit 27.7 % Mean Corpuscular Volume 80.8 fL Mean Corpuscular Hemoglobin 26.8 pg Mean Corpuscular Hemoglobin Concent 33.2 g/dl RDW Standard Deviation 42.5 fL RDW Coefficient of Variation 14.5 % Platelet Count 208 K/uL Mean Platelet Volume 8.7 fL Sodium Level 136 mmol/L Potassium Level 3.4 mmol/L Chloride Level 105 mmol/L Carbon Dioxide Level 21 mmol/L Anion Gap 9.0 mmol/L Blood Urea Nitrogen 9 mg/dl Creatinine 0.93 mg/dl Est Creatinine Clear Calc Drug Dose 69.6 ml/min Estimated GFR () 92.1 Estimated GFR (Non- 79.5 BUN/Creatinine Ratio 9.1 Random Glucose 99 mg/dl Calcium Level 8.1 mg/dl D-Dimer 2130 ug/L FEU Troponin I < 0.015 ng/ml Bedside Glucose 220 mg/dl Assessment and Plan 77 M presents with chills, restlessness and general ill feeling. had owning last evening and no to baseline and family is concerned Anemic, did check and is very iron deficient, CT scan of abdomen did reveal possible bladder mass, not enough significant hematuria to suggest this as cause , since anemia is somewhat stable will give a dose of venofer since he is not getting transfusion today COPD intermittently with wheezes, did CTA and was without PE, comments on tree in bud again, did have bronchi in 2014 for same, is on azithromycin given allergy to Levaquin, will add steroids, nebs and have pulmonary medicine see Afib RVR, treated with b edy and converted with augmenting repletion of hypokalemia and one dose of magnesium with complaints of joint pain ESR no elevated enought to consider PMR, no complaints after using toradol Ct also comments on tree in bud appearance of bases concerns for pneumonitis or atypical infection, did change augmentin to azithromycin Restless ness, improved with stoping bentyl and reglan did have some ing stopped seroquel, did ok with hs ativan DM stable with basal bolus and ssi along with diabetic diet Cerebrovascular risk reduction with history of stroke, will continue plavix and aspirin lovenox was stopped with anemia adding scd's
[2017-10-28] MEDS ORDERED: LEVALBUTEROL 0.63MG/3 ML NEB INH PRN (16:45)
[2017-10-28] MEDS: FERROUS SULFATE 325 MG TAB PO SCH (16:56)
[2017-10-28] MEDS ORDERED: FUROSEMIDE INJ 10 MG in SYRINGE 0 ML IV ONE (18:30)
--- NOTE | 2017-10-28 18:52 | Anesthesiology Progress Note ---
Anesthesia Progress Note Date of Service Oct 28, 2017. Progress Notes The patient is a 77 y/o male scheduled for a TURBT on 11/01/17. He was admitted on 10/25/17 with flu like symptoms. He was found to be anemic and was noted to have a bladder mass on a CT scan. He also had worsening cough which could be exacerbation of his COPD, an atypical pneumonia or CHF. On 10/28/17 he developed afib with RVR which has since converted back to sinus rhythm. PMH includes COPD, asthma, HTN, dyslipidemia, GERD, TIA in March 2017, lumbago, type 2 DM on insulin, and anemia. His CXR from 10/25 showed emphysema and R upper lobe pneumonitis. CT showed bladder mass and was negative for PE. His EKG showed afib with RVR. An echo from 07/30/17 showed EF 60%, mild LVH, mild MR, and type 1 diastolic dysfunction. Significant labs are hgb 9.2, D-Dimer 2130, and BNP 3889. On exam the patient was pleasantly sitting in bed. He had a MP 1 airway with good neck extension. Lungs were clear but had slight crackles at the bases. Heart was RRR. Carotids were negative for bruits. The patient was consented to general anesthesia. He was counseled to remain NPO after midnight on 10/31/17 except for sips of water with pills.
[2017-10-28] MEDS: PANTOprazole SOD 40 MG TAB PO SCH (19:26)
[2017-10-28] MEDS: METOPROLOL SUCC 50MG EXT REL TAB PO SCH (19:28)
[2017-10-28] MEDS: IPRATROPIUM BROMIDE NEB SOLN 0.02% 2.5 ML VIAL INH SCH (19:49)
[2017-10-28] MEDS: LEVALBUTEROL 0.63MG/3 ML NEB INH SCH (19:49)
--- NOTE | 2017-10-28 20:43 | PULMONARY CONSULTATION ---
DATE OF CONSULTATION: 10/28/2017 TIME: 4:50 p.m. HISTORY OF PRESENT ILLNESS: The patient was seen in room 282, bed 2. He is a 77-year-old male who was admitted to the hospital on 10/25/2016. The history is that he was feeling somewhat feverish, feeling weak, and acting confused. Reportedly, he slumped to the floor, although patient himself denies any knowledge of this. His family thought perhaps he was getting the flu. He just was not right. He was very restless and generally uncomfortable in a vague sense. He had been getting treated for a presumed urinary tract infection with Bactrim. He had some persistent hematuria. A day or two after admission, patient developed wheezing. Subsequently, he developed increasing cough. The cough has been productive of sputum that he states is yellow. The patient tells me his cough has been increased for about a week, but his daughter did not substantiate that. The patient was found to have a significant drop in his hemoglobin. Thus, he has undergone a GI consultation. He also has had a urology consultation. He was found to have what appears to be a bladder tumor. This morning, patient went into atrial fibrillation with a rapid rate in the 150s. He was much more short of breath at that time. He did convert down and back to sinus rhythm where I believe he has stayed. The patient has a history of significant COPD. He follows up with Dr. Velez. In July 2017, he had pulmonary function showing an FEV1 of only 52% of predicted and the FEV1/FVC ratio was 59%. He also has a history of [place] infection diagnosed in February of 2015. This was found at bronchoscopy. He saw infectious disease at that time, and a decision was made not to treat. The patient does have a CAT scan showing tree-in-bud changes. At the present time, patient is feeling fairly comfortable. He is not noticing any shortness of breath right now. He does note that he wheezes more when he lays back. It was thought that he was a little dehydrated when he came in and thus he did receive some IV fluids. He was seen by cardiology and an echo is pending. He denies prior cardiac problems. PAST MEDICAL HISTORY: In addition to the above-mentioned complaints patient has diabetes, irritable bowel syndrome, CVA in March 2017, hypothyroidism, hypercholesterolemia, anxiety, and depression. PAST SURGICAL HISTORY: Low back surgery in the lumbar spine. SOCIAL HISTORY: Tobacco, patient is vague. Reportedly, he smoked about 1-1/2 packs per day for 20 years, but he has not smoked for about 40 years. FAMILY HISTORY: Mother at age 86, [place]. Father age 89, had sudden . A brother , COPD. ALLERGIES: None known allergies. MEDICATIONS AT HOME: 1. Alprostadil by injection. 2. Vitamin C. 3. Atorvastatin 40 mg daily. 4. Symbicort 160/4.5 two puffs b.i.d. 5. Clopidogrel 75 mg daily. 6. Dicyclomine 20 mg b.i.d. 7. NovoLog insulin. 8. Lantus insulin 30 units at bedtime. 9. Levothyroxine 100 mcg daily. 10. Metoclopramide 5 mg daily. 11. Metoprolol 25 mg b.i.d. 12. Pantoprazole 40 mg daily. 13. MiraLax daily. 14. Bactrim b.i.d. 15. Venlafaxine 75 mg daily. 16. Ventolin HFA p.r.n. 17. Buspirone 7.5 mg t.i.d. p.r.n. 18. Hydrocodone-Homatropine p.r.n. 19. Levalbuterol 1 puff q. 6 hours p.r.n. 20. Ondansetron 4 mg p.o. up to a total of q. 8 hours p.r.n. nausea. REVIEW OF SYSTEMS: Negative except for the above-mentioned complaints. Ten systems were reviewed. Of note, he did have a drop in hemoglobin after his stay and there is a history of some dark colored bowel movements but none since admission. Otherwise, negative. PHYSICAL EXAMINATION: GENERAL: The patient is a pleasant 77-year-old male who was cooperative, alert and oriented. He was in no distress at rest. Weight is 72.8 kilograms with a BMI of 21.8. VITAL SIGNS: Temperature is 36.4. HEENT: Pupils were reactive. Nares were clear. Mouth exam was negative. NECK: Palpation of the neck reveals no lymph nodes. Neck veins were noted to be distended. HEART: Current heart rate is 99 per minute. The rhythm is regular. Blood pressure is 126/69. CHEST: Normal expansion. Mild wheeze was heard at end expiration. Respiratory rate was 20. Saturation was 99% on room air. ABDOMEN: Soft and nontender. Bowel sounds were present. There was no tenderness to palpation, or masses. EXTREMITIES: Showed no cyanosis, clubbing or edema. The patient had a CAT scan of the chest done today. This was to rule out pulmonary emboli. There was no pulmonary emboli noted. There is mild enlargement of subcarinal and right hilar lymph nodes. There are very small pleural effusions. There are scattered multifocal tree-in-bud nodules, this had been seen on prior studies. There are multiple patchy areas of subpleural opacifications within both upper lobes. I suspect this may reflect pneumonic infiltrates. This was not seen previously. Interlobular septal thickening was reported, which may suggest pulmonary edema. CAT scan of the head done on admission showed no acute abnormality. Renal ultrasound is normal. CAT scan of the abdomen and pelvis shows a 3.1 cm mass lesion in the bladder on the left posterior wall. There was no evidence of metastatic disease. Hepatic periportal edema was noted. LABORATORY DATA: White count is 4.44. Hemoglobin is 9.2, the hemoglobin had been 13.2 on admission. Platelets are 208,000. Sed rate is elevated at 68. INR was 1.2. D-dimer was 2130. Urinalysis showed +1 protein, +1, ketones. Electrolytes show sodium 136, potassium 3.4, chloride 105, bicarb 21. BUN was 9 with a creatinine of 0.93. At the time of admission, his BUN was 19 with a creatinine of 1.43. IMPRESSION: 1. Patchy bilateral lung infiltrates - likely representing pneumonitis. 2. Chronic obstructive pulmonary disease. 3. History of mycobacterium avium-intracellulare infection. 4. Subcarinal lymphadenopathy. 5. Atrial fibrillation. 6. Bladder tumor. COMMENTS AND RECOMMENDATIONS: The case was discussed with Dr. Barger. He is on methylprednisolone and I agree with that. In light of the atrial fibrillation, I believe we should change his bronchodilators to levalbuterol plus ipratropium by nebulizer q. 6 hours. I would drop off on the Perforomist. He also is on Symbicort. He is getting Combivent every 4 hours and I would discontinue that. He is on thyroid supplementation. Perhaps T3 and T4 should be done if they have not been done and possibly TSH, I will defer this to the hospitalist team. We will check 2 sputum samples for AFB. Thank you very much for asking me to assist in his care.
[2017-10-28] MEDS: LORAZEPAM 1 MG TAB PO SCH (20:56)
[2017-10-28] MEDS ORDERED: LEVALBUTEROL/IPRATROPIUM NEB INH SCH (21:00)
[2017-10-28] MEDS: INSULIN GLARGINE SOLOSTAR 100 UNITS/ML 3 ML PEN SC SCH (21:00)
[2017-10-29] VITALS (9 sets, daily range): BP systolic 131–165; BP diastolic 53–84; PULSE 67–110; TEMP 36.3–36.6; O2SAT 95–99
[2017-10-29] MEDS: LEVALBUTEROL 0.63MG/3 ML NEB INH SCH ×4 (01:53→19:39)
[2017-10-29] MEDS: IPRATROPIUM BROMIDE NEB SOLN 0.02% 2.5 ML VIAL INH SCH ×4 (01:53→19:39)
[2017-10-29] MEDS: LORAZEPAM INJ 0.5 MG in SYRINGE 0.25 ML IV PRN (05:19)
[2017-10-29] MEDS: LEVOTHYROXINE 100 MCG TAB PO SCH (05:20)
[2017-10-29 08:06] LABS: HEMATOCRIT 31.1 % (42-52); HEMOGLOBIN 10.6 g/dL (14.0-18.0); MEAN CELL VOLUME 79.7 fL (80-100); MEAN CORPUSCULAR HEMOGLOBIN 27.2 pg (25-34); MEAN CORPUSCULAR HGB CONC 34.1 g/dl (32-36); MEAN PLATELET VOLUME 8.9 fL (7.4-10.4); PLATELET COUNT 260 K/uL (130-400); RED CELL DISTRIBUTION WIDTH CV 14.5 % (11.5-14.5); RED CELL DISTRIBUTION WIDTH SD 41.7 fL (36.4-46.3); WHITE BLOOD COUNT 6.66 K/uL (4.8-10.8)
[2017-10-29] MEDS: FERROUS SULFATE 325 MG TAB PO SCH ×2 (08:43→17:15)
[2017-10-29] MEDS: BUDESONIDE/FORMOTEROL FUMARATE 160/4.5 60 PUFFS/INHALER INH SCH ×2 (08:44→20:30)
[2017-10-29] MEDS: ATORVASTATIN 40 MG TAB PO SCH (08:44)
[2017-10-29] MEDS: METOPROLOL SUCC 50MG EXT REL TAB PO SCH ×2 (08:44→20:31)
[2017-10-29] MEDS: METHYLPREDNISOLONE IV 40 MG in SYRINGE 0 ML IV SCH (08:44)
[2017-10-29] MEDS: CLOPIDOGREL BISULFATE 75 MG TAB PO SCH (08:44)
[2017-10-29] MEDS: ASCORBIC ACID 500 MG TAB PO SCH (08:44)
[2017-10-29] MEDS: PANTOprazole SOD 40 MG TAB PO SCH ×2 (08:44→20:31)
[2017-10-29 08:45] LABS: CALCIUM 8.6 mg/dl (8.5-10.1); CREATININE 1.07 mg/dl (0.60-1.40); POTASSIUM 3.6 mmol/L (3.5-5.1)
[2017-10-29] MEDS: VENLAFAXINE HCL XR 75 MG CAPXR PO SCH (08:45)
[2017-10-29] MEDS: MULTIVITAMIN TAB PO SCH (08:45)
[2017-10-29] MEDS: POLYETHYLENE (MIRALAX) 17 GM PACK PO SCH (08:46)
[2017-10-29] MEDS: INSULIN ASPART 100 UNITS/ML 3 ML PEN SC SCH ×4 (08:54→20:35)
[2017-10-29] MEDS: AZITHROMYCIN IV 500 MG in DEXTROSE 5% 250ML 250 ML IV SCH (09:07)
--- NOTE | 2017-10-29 10:14 | PULMONARY PROGRESS NOTE ---
DATE: 10/29/2017 TIME: 09:50 a.m. SUBJECTIVE: The patient states his breathing is much better. He did, however, have a bad night. He was agitated and confused. Nursing staff was aware of this. He called his daughter at 05:00 a.m. He has been having nighttime symptoms since he came in. His cough is less. He seems to have had stability with his cardiac rhythm. OBJECTIVE: GENERAL: The patient appeared comfortable. He awakened readily when I came in. He seems oriented at present. VITAL SIGNS: Temperature is 36.4. Heart rate was 89 per minute. The rhythm is regular. Blood pressure 165/53. CHEST: Respiratory rate was 20 breaths per minute. Lung boyd revealed diminished breath sounds with just a few rales. Oxygen saturation this morning was 99% on room air. EXTREMITIES: Showed no cyanosis, clubbing or edema. LABORATORY DATA: The patient had a BNP done yesterday that was significantly elevated at 3887. His echo report is still pending. Electrolytes today show sodium 133, potassium 3.6, chloride 102, and bicarbonate 21. BUN is 11 with a creatinine of 1.07. Blood sugar this morning was 242. Troponin last evening was negative. White count is 6.66. Hemoglobin is 10.6. Platelets are 260,000. IMPRESSIONS: 1. Patchy lung infiltrates, likely secondary to pneumonitis. 2. Chronic obstructive pulmonary disease -- moderately severe. 3. History of mycobacterium avium-intracellulare infection -- likely accounting for the tree-in-bud changes on CAT scan. 4. Subcarinal adenopathy. 5. Atrial fibrillation -- paroxysmal. 6. Bladder tumor. COMMENTS AND RECOMMENDATIONS: The patient seems much better. He is having nighttime symptoms including confusion and agitation, which I suspect are related to his hospital stay itself. I spoke with Dr. Barger. We will change the IV steroids to oral steroids. I do not believe he needs a high dose of prednisone at present. We will continue with his neb treatments as present. We are trying to maximize him for his upcoming surgery. SHADY
--- NOTE | 2017-10-29 12:31 | ECHOCARDIOGRAM REPORT ---
*NOTICE TO RECEIVING REPUBLICAN AGENCY This information is strictly Confidential and protected under [place] law. [place] law prohibits you from making any further disclosure of this information unless further disclosure is expressly permitted by the written consent of the person to whom it pertains or is authorized by law. A general authorization for the release of medical or other information is not sufficient for this purpose. Hospital accepts no responsibility if the information is made available to any other person, INCLUDING THE PATIENT. Interpretation Summary * Name: CARA VERA Study Date: 10/29/2017 10:27 AM BP: 165/53 mmHg * Patient Location: [facility]\S\N282\S\2 HR: 87 * : 1940 (M/d/yyyy) Gender: Male Height: 72 in * Age: 77 yrs Ethnicity: CA Weight: 160 lb * Ordering Physician: Sorin Barger * Referring Physician: Self, Referred * Performed By: Wes Zamora RCS * * Reason For Study: A-FIB * BSA: 1.9 m2 * -- Conclusions -- * Left ventricular systolic function is normal. * Diastolic dysfunction, Grade II, consistent with elevated left atrial pressure. * There is mild mitral regurgitation. * Right ventricular systolic pressure is normal. * Mild aortic root dilatation. * Compared to an echocardiogram obtained on 04/11/2017, the degree of mitral regurgitation appears slightly worse and there is stage II diastolic dysfunction. The aortic root also measured enlarged. Procedure Details * A complete two-dimensional transthoracic echocardiogram was performed (2D, M-mode, Doppler and color flow Doppler). Left Ventricle * The left ventricle is normal in size. * There is normal left ventricular wall thickness. * Ejection Fraction = 60-65%. * Left ventricular systolic function is normal. * Diastolic dysfunction, Grade II, consistent with elevated left atrial pressure. * The left ventricular wall motion is normal. Right Ventricle * The right ventricle is normal in size and function. * The right ventricular systolic function is normal as assessed by tricuspid annular plane systolic excursion (TAPSE) (normal >1.5 cm). Atria * The left atrial size is normal. * Right atrial size is normal. Mitral Valve * The mitral valve anatomy is normal. * There is mild mitral regurgitation. Tricuspid Valve * The tricuspid valve is not well visualized, but is grossly normal. * There is trace tricuspid regurgitation. * Right ventricular systolic pressure is normal. Aortic Valve * The aortic valve is normal in structure and function. * The aortic valve is trileaflet. * No hemodynamically significant valvular aortic stenosis. * There is no significant aortic regurgitation. Great Vessels * Mild aortic root dilatation. Pericardium/Pleural * There is no pericardial effusion. Great Vessels * Normal inferior vena cava diameter and respiratory variation suggests normal central venous pressure. MMode 2D Measurements and Calculations IVSd 0.95 cm IVSs 1.6 cm LVIDd 4.5 cm LVIDs 3.0 cm LVPWd 0.96 cm LVPWs 1.4 cm IVS/LVPW 0.99 FS 33.1 % EDV(Teich) 94.6 ml ESV(Teich) 36.2 ml EF(Teich) 61.8 % EDV(cubed) 93.9 ml ESV(cubed) 28.1 ml EF(cubed) 70.0 % % IVS thick 63.2 % % LVPW thick 48.8 % LV mass(C)d 147.1 grams LV mass(C)dI 75.9 grams/m\S\2 LV mass(C)s 159.8 grams LV mass(C)sI 82.5 grams/m\S\2 SV(Teich) 58.4 ml SI(Teich) 30.2 ml/m\S\2 SV(cubed) 65.8 ml SI(cubed) 33.9 ml/m\S\2 Ao root diam 4.2 cm Ao root area 13.9 cm\S\2 ACS 1.9 cm LA dimension 3.9 cm asc Aorta Diam 3.4 cm LA/Ao 0.93 EDV(MOD-sp4) 101.0 ml ESV(MOD-sp4) 45.0 ml EF(MOD-sp4) 55.4 % EDV(MOD-sp2) 105.0 ml ESV(MOD-sp2) 48.0 ml EF(MOD-sp2) 54.3 % SV(MOD-sp4) 56.0 ml SI(MOD-sp4) 28.9 ml/m\S\2 SV(MOD-sp2) 57.0 ml SI(MOD-sp2) 29.4 ml/m\S\2 Doppler Measurements and Calculations MV E max keegan 105.2 cm/sec MV A max keegan 70.1 cm/sec MV E/A 1.5 MV P1/2t max keegan 103.0 cm/sec MV P1/2t 65.4 msec MVA(P1/2t) 3.4 cm\S\2 MV dec slope 460.9 cm/sec\S\2 MV dec time 0.20 sec Ao V2 max 111.6 cm/sec Ao max PG 5.0 mmHg Ao max PG (full) 1.3 mmHg LV V1 max PG 3.7 mmHg LV V1 max 96.0 cm/sec PA V2 max 96.2 cm/sec PA max PG 3.7 mmHg TR max keegan 224.2 cm/sec
--- NOTE | 2017-10-29 12:35 | Progress Note ---
Subjective Date of Service: Oct 29, 2017. Subjective Pt looks and feels much better at this point, no further wheezing or afib, and no significant hematuria Problem List Medical Problems: (1) Hyponatremia Status: Acute (2) Medication side effect Status: Acute (3) SOB (shortness of breath) Status: Acute (4) TIA (transient ischemic attack) Status: Acute (5) Troponin level elevated Status: Acute (6) Weakness Status: Acute Review of Systems Constitutional: + weakness, No fever, No chills Respiratory: No cough, No shortness of breath, No dyspnea on exertion Cardiac: No chest pain, No edema Abdomen: No pain, No nausea, No vomiting, No diarrhea Musculoskeletal: + joint pain, + muscle pain Male : No dysuria, No urinary frequency Neurologic: + memory loss (at times usually some ), No paralysis, No weakness Objective Vital Signs Date Time Temp Pulse Resp B/P (MAP) Pulse Ox O2 Delivery O2 Flow Rate FiO2 10/29/17 11:40 36.6 85 18 131/69 (89) 97 10/29/17 08:00 36.4 89 20 165/53 (90) 99 Room Air 10/29/17 08:00 Room Air 10/29/17 07:25 101 16 97 Room Air 10/29/17 04:00 Room Air 10/29/17 01:54 103 16 97 Room Air 10/29/17 00:00 Room Air 10/28/17 23:56 36.5 88 18 134/61 (85) 95 Room Air 10/28/17 20:00 Room Air 10/28/17 19:53 92 16 96 Room Air 10/28/17 19:33 36.4 89 20 156/78 (104) 97 Room Air 10/28/17 16:00 Room Air 10/28/17 15:49 36.4 87 18 126/69 (88) 99 Room Air Physical Exam General Appearance: WD/WN, + mild distress Eyes: normal inspection, sclerae normal Neck: supple, no JVD Respiratory/Chest: chest non-tender, lungs clear, normal breath sounds Cardiovascular: regular rate, rhythm, no murmur Abdomen: normal bowel sounds, non tender, soft Extremities: no pedal edema, no calf tenderness Neurologic/Psychiatric: alert, oriented x 3 Laboratory Results Last 24 Hours Test 10/28/17 15:25 10/28/17 16:35 10/28/17 20:03 10/28/17 21:27 Troponin I < 0.015 ng/ml < 0.015 ng/ml Pro-B-Type Natriuretic Peptide 3887 pg/ml Bedside Glucose 172 mg/dl 271 mg/dl Test 10/29/17 07:41 10/29/17 07:47 10/29/17 11:38 Bedside Glucose 245 mg/dl 286 mg/dl White Blood Count 6.66 K/uL Red Blood Count 3.90 M/uL Hemoglobin 10.6 g/dL Hematocrit 31.1 % Mean Corpuscular Volume 79.7 fL Mean Corpuscular Hemoglobin 27.2 pg Mean Corpuscular Hemoglobin Concent 34.1 g/dl RDW Standard Deviation 41.7 fL RDW Coefficient of Variation 14.5 % Platelet Count 260 K/uL Mean Platelet Volume 8.9 fL Sodium Level 133 mmol/L Potassium Level 3.6 mmol/L Chloride Level 102 mmol/L Carbon Dioxide Level 21 mmol/L Anion Gap 10.0 mmol/L Blood Urea Nitrogen 11 mg/dl Creatinine 1.07 mg/dl Est Creatinine Clear Calc Drug Dose 59.8 ml/min Estimated GFR () 77.7 Estimated GFR (Non- 67.1 BUN/Creatinine Ratio 9.9 Random Glucose 242 mg/dl Calcium Level 8.6 mg/dl Assessment and Plan 77 M presents with chills, restlessness and general ill feeling. had sundowning last evening and no to baseline and family is concerned Anemic, did check and is very iron deficient, CT scan of abdomen did reveal possible bladder mass, not enough significant hematuria to suggest this as cause , since anemia is somewhat stable given a dose of Venofer 10/28. remains stable 10/29 COPD intermittently with wheezes, did CTA and was without PE, comments on tree in bud again, did have bronchi in 2015 for same, is on azithromycin given allergy to Levaquin, steroids have causes glucose control issues, will taper as clinically improved, Pulmonary med agrees with linda, taper steroids and if stable 10/29 change back to MDI's Did have some JVD with wheezing episodes and with brief afib RVR did spontaneously convert, not long enought to consider AC, and likely from physiologic stressors, negative troponin but with increase bNp, did have one dose of lasix and ECHO shows diastolic dysfunction 2, likely had a small amount of acute diastolic heart failure, will treat with increased b Hardy joint pain, great improvement of symptom control with prn toradol Ct also comments on tree in bud appearance of bases concerns for pneumonitis or atypical infection, did change augmentin to azithromycin, will ask pulmonary med about duration, started 10/27 Restless ness, improved with stopping bentyl and reglan did have some ing stopped seroquel, does ok with hs ativan DM unstable with steroids, reduced 10/29 continue with basal bolus and ssi along with diabetic diet Cerebrovascular risk reduction with history of stroke,hold plavix and aspirin with upcoming bladder surgery lovenox was stopped with anemia adding scd's
--- NOTE | 2017-10-29 16:05 | Progress Note ---
Subjective Date of Service: Oct 29, 2017. Subjective Pt evaluation today including: conversation w/ patient, conversation w/ family , physical exam, chart review, lab review, review of inpatient medication list Pain: Denies PO Intake: Eufemia PO Voiding: no voiding problems Comorbid 77 yo male, known to Dr. Malone with recent hematuria and a likely bladder mass found on CT scan imaging with contrast. His past notes are reviewed. He was originally due for an outpatient cystoscopy but the current plan is for cysto, possible TURBT by Dr. Malone on Nov 01. Family present in room with queries. No specific complaints. Problem List Medical Problems: (1) Hyponatremia Status: Acute (2) Medication side effect Status: Acute (3) SOB (shortness of breath) Status: Acute (4) TIA (transient ischemic attack) Status: Acute (5) Troponin level elevated Status: Acute (6) Weakness Status: Acute Review of Systems Constitutional: No fever, No chills Eyes: No worsening of vision ENT: No hearing loss Respiratory: No wheezing Cardiac: No chest pain Abdomen: No nausea, No vomiting Male : + see HPI Neurologic: No memory loss, No paralysis Psychiatric: No depression symptoms Objective Vital Signs Date Time Temp Pulse Resp B/P (MAP) Pulse Ox O2 Delivery O2 Flow Rate FiO2 10/29/17 15:45 Room Air 10/29/17 14:52 36.6 110 18 164/84 (110) 98 Room Air 10/29/17 14:00 67 16 98 Room Air 10/29/17 12:00 Room Air 10/29/17 11:40 36.6 85 18 131/69 (89) 97 10/29/17 08:00 36.4 89 20 165/53 (90) 99 Room Air 10/29/17 08:00 Room Air 10/29/17 07:25 101 16 97 Room Air 10/29/17 04:00 Room Air 10/29/17 01:54 103 16 97 Room Air 10/29/17 00:00 Room Air 10/28/17 23:56 36.5 88 18 134/61 (85) 95 Room Air 10/28/17 20:00 Room Air 10/28/17 19:53 92 16 96 Room Air 10/28/17 19:33 36.4 89 20 156/78 (104) 97 Room Air Physical Exam General Appearance: WD/WN, no apparent distress ENT: hearing grossly normal Neck: supple, no adenopathy Respiratory/Chest: no respiratory distress, no accessory muscle use Cardiovascular: no JVD Abdomen: non tender, soft Neurologic/Psychiatric: alert, oriented x 3 Skin: normal color Laboratory Results Last 24 Hours Test 10/28/17 16:35 10/28/17 20:03 10/28/17 21:27 10/29/17 07:41 Bedside Glucose 172 mg/dl 271 mg/dl 245 mg/dl Troponin I < 0.015 ng/ml Test 10/29/17 07:47 10/29/17 11:38 White Blood Count 6.66 K/uL Red Blood Count 3.90 M/uL Hemoglobin 10.6 g/dL Hematocrit 31.1 % Mean Corpuscular Volume 79.7 fL Mean Corpuscular Hemoglobin 27.2 pg Mean Corpuscular Hemoglobin Concent 34.1 g/dl RDW Standard Deviation 41.7 fL RDW Coefficient of Variation 14.5 % Platelet Count 260 K/uL Mean Platelet Volume 8.9 fL Sodium Level 133 mmol/L Potassium Level 3.6 mmol/L Chloride Level 102 mmol/L Carbon Dioxide Level 21 mmol/L Anion Gap 10.0 mmol/L Blood Urea Nitrogen 11 mg/dl Creatinine 1.07 mg/dl Est Creatinine Clear Calc Drug Dose 59.8 ml/min Estimated GFR () 77.7 Estimated GFR (Non- 67.1 BUN/Creatinine Ratio 9.9 Random Glucose 242 mg/dl Calcium Level 8.6 mg/dl Bedside Glucose 286 mg/dl Assessment and Plan A/P 77 yo male with bladder mass. CT scan images reviewed with patient, questions answered, surgical plan reviewed. Patient and family vocalize good understanding of the plan. Optimization for operative intervention by primary service, OR as planned Nov 01, [address] Malone.
[2017-10-29] MEDS: INSULIN GLARGINE SOLOSTAR 100 UNITS/ML 3 ML PEN SC SCH (20:35)
[2017-10-29] MEDS: LORAZEPAM 1 MG TAB PO SCH (21:43)
[2017-10-29] MEDS: GUAIFENESIN SUGAR FREE 200 MG/10 ML UDC PO PRN (21:43)
[2017-10-30] VITALS (9 sets, daily range): BP systolic 123–165; BP diastolic 50–87; PULSE 84–96; TEMP 36.4–36.7; O2SAT 93–100
[2017-10-30] MEDS: LEVALBUTEROL 0.63MG/3 ML NEB INH SCH ×4 (02:36→19:36)
[2017-10-30] MEDS: IPRATROPIUM BROMIDE NEB SOLN 0.02% 2.5 ML VIAL INH SCH ×4 (02:36→19:35)
[2017-10-30] MEDS: LEVOTHYROXINE 100 MCG TAB PO SCH (05:53)
[2017-10-30 07:36] LABS: HEMATOCRIT 31.9 % (42-52); HEMOGLOBIN 10.4 g/dL (14.0-18.0); MEAN CELL VOLUME 80.4 fL (80-100); MEAN CORPUSCULAR HEMOGLOBIN 26.2 pg (25-34); MEAN CORPUSCULAR HGB CONC 32.6 g/dl (32-36); MEAN PLATELET VOLUME 8.9 fL (7.4-10.4); PLATELET COUNT 356 K/uL (130-400); RED CELL DISTRIBUTION WIDTH CV 14.6 % (11.5-14.5); RED CELL DISTRIBUTION WIDTH SD 42.6 fL (36.4-46.3); WHITE BLOOD COUNT 11.66 K/uL (4.8-10.8)
[2017-10-30 08:14] LABS: CALCIUM 8.6 mg/dl (8.5-10.1); CREATININE 0.96 mg/dl (0.60-1.40); POTASSIUM 4.1 mmol/L (3.5-5.1)
[2017-10-30] MEDS: POLYETHYLENE (MIRALAX) 17 GM PACK PO SCH (09:00)
[2017-10-30] MEDS: ATORVASTATIN 40 MG TAB PO SCH (09:07)
[2017-10-30] MEDS: PANTOprazole SOD 40 MG TAB PO SCH ×2 (09:07→21:25)
[2017-10-30] MEDS: VENLAFAXINE HCL XR 75 MG CAPXR PO SCH (09:07)
[2017-10-30] MEDS: FERROUS SULFATE 325 MG TAB PO SCH ×2 (09:08→17:01)
[2017-10-30] MEDS: METOPROLOL SUCC 50MG EXT REL TAB PO SCH ×2 (09:08→21:25)
[2017-10-30] MEDS: MULTIVITAMIN TAB PO SCH (09:08)
[2017-10-30] MEDS: BUDESONIDE/FORMOTEROL FUMARATE 160/4.5 60 PUFFS/INHALER INH SCH ×2 (09:08→21:25)
[2017-10-30] MEDS: ASCORBIC ACID 500 MG TAB PO SCH (09:09)
[2017-10-30] MEDS: INSULIN ASPART 100 UNITS/ML 3 ML PEN SC SCH ×4 (09:15→21:31)
[2017-10-30] MEDS: AZITHROMYCIN 250 MG TAB PO SCH (11:00)
[2017-10-30] MEDS ORDERED: POTASSIUM CHLORIDE 10 MEQ TABCR PO ONE (13:15)
[2017-10-30] MEDS ORDERED: MAGNESIUM OXIDE 400 MG TAB PO ONE (13:15)
[2017-10-30] MEDS ORDERED: FUROSEMIDE INJ 20 MG in SYRINGE 0 ML IV ONE (13:15)
--- NOTE | 2017-10-30 16:44 | PULMONARY PROGRESS NOTE ---
DATE: 10/30/2017 TIME: 03:15 p.m. SUBJECTIVE: The patient is feeling much better. He thinks he did not sleep well last night, but nursing indicated he did much better last night than the night before. He did not have any confusion. He did cough a fair amount during the night. His breathing has been improved. He has numerous family members who were with him at present. OBJECTIVE: GENERAL: The patient appeared comfortable at rest. VITAL SIGNS: Temperature is 36.6. Heart rate is 92 per minute, but it was seen to be up to 110 per minute. The rhythm is regular. Blood pressure is 143/69. LUNGS: Lung boyd today were clear. No wheezes or rales were heard. Respiratory rate was 18 breaths per minute. Oxygen saturation on room air was 95%. EXTREMITIES: Showed no edema. The patient's echocardiogram did show diastolic dysfunction, stage II. LABORATORY DATA: CBC today shows a white count of 11.66. This was increased from 6.66. Hemoglobin is 10.4. Platelets are 356,000. Electrolytes show sodium 135, potassium 4.1, chloride 103, and bicarbonate 24. IMPRESSIONS: 1. Patchy lung infiltrates -- possible pneumonitis. 2. Chronic obstructive pulmonary disease. 3. Mycobacterium avium intracellulare infection by history. 4. Subcarinal adenopathy. 5. Atrial fibrillation -- paroxysmal. 6. Bladder tumor. COMMENTS: The patient's respiratory status seems much improved. It may be a combination of improving both the COPD and some congestive heart failure. Dr. Perez did give the patient Lasix today. The hope is that he can be as good as possible for his upcoming surgery planned for Tuesday. I believe I would continue his neb treatments as they have been in light of his improvement. After the surgery, once he is stable, I would resume his outpatient inhalers and make the nebulizers just p.r.n. Pulmonary service will sign off for now. Dr. Mondragon is on the pulmonary service as of tomorrow. Please feel free to call her if he feel the patient needs reevaluation. SHADY
--- NOTE | 2017-10-30 18:07 | Progress Note ---
Subjective Date of Service: Oct 30, 2017. Subjective Pt evaluation today including: conversation w/ patient, conversation w/ family (, daughter at bedside), physical exam, chart review, lab review, conversation w/ process consultant (pulmonary), review of inpatient medication list Pain: denies PO Intake: fair at best had episode of hematuria overnight no additional a. fib episodes has ongoing cough and had difficulty breathing last pm - couldn't lay flat or get comfortable mild confusion at night but this improves during the daytime Problem List Medical Problems: (1) Hyponatremia Status: Acute (2) Medication side effect Status: Acute (3) SOB (shortness of breath) Status: Acute (4) TIA (transient ischemic attack) Status: Acute (5) Troponin level elevated Status: Acute (6) Weakness Status: Acute Review of Systems Constitutional: No fever, No chills Cardiac: + orthopnea, No chest pain, No edema Abdomen: No pain Objective Vital Signs Date Time Temp Pulse Resp B/P (MAP) Pulse Ox O2 Delivery O2 Flow Rate FiO2 10/30/17 15:45 Room Air 10/30/17 14:39 36.6 87 18 143/69 (93) 100 10/30/17 14:10 92 16 95 Room Air 10/30/17 12:00 Room Air 10/30/17 11:17 36.4 84 18 123/67 (85) 98 Room Air 10/30/17 08:00 Room Air 10/30/17 07:51 36.4 92 18 151/70 (97) 96 10/30/17 06:06 93 16 98 Room Air 10/30/17 05:20 36.5 88 20 157/50 (85) 97 Room Air 10/30/17 04:00 Room Air 10/30/17 00:00 Room Air 10/29/17 23:38 36.4 90 16 154/70 (98) 97 Room Air 10/29/17 20:00 Room Air 10/29/17 19:49 36.3 98 18 157/75 (102) 95 Room Air 10/29/17 19:41 96 16 97 Room Air Physical Exam General Appearance: no apparent distress ENT: pharynx normal Neck: + JVD Respiratory/Chest: no respiratory distress, no accessory muscle use, + rales ( bases) Cardiovascular: regular rate, rhythm, no gallop, no murmur Abdomen: normal bowel sounds, non tender, soft, no organomegaly Extremities: no pedal edema Neurologic/Psychiatric: alert Laboratory Results Last 24 Hours Test 10/29/17 20:23 10/30/17 06:53 10/30/17 07:28 10/30/17 11:33 Bedside Glucose 254 mg/dl 166 mg/dl 206 mg/dl White Blood Count 11.66 K/uL Red Blood Count 3.97 M/uL Hemoglobin 10.4 g/dL Hematocrit 31.9 % Mean Corpuscular Volume 80.4 fL Mean Corpuscular Hemoglobin 26.2 pg Mean Corpuscular Hemoglobin Concent 32.6 g/dl RDW Standard Deviation 42.6 fL RDW Coefficient of Variation 14.6 % Platelet Count 356 K/uL Mean Platelet Volume 8.9 fL Sodium Level 135 mmol/L Potassium Level 4.1 mmol/L Chloride Level 103 mmol/L Carbon Dioxide Level 24 mmol/L Anion Gap 9.0 mmol/L Blood Urea Nitrogen 15 mg/dl Creatinine 0.96 mg/dl Est Creatinine Clear Calc Drug Dose 66.7 ml/min Estimated GFR () 88.6 Estimated GFR (Non- 76.5 BUN/Creatinine Ratio 15.8 Random Glucose 152 mg/dl Calcium Level 8.6 mg/dl Test 10/30/17 16:29 Bedside Glucose 130 mg/dl Assessment and Plan 77yo male with: 1. anemia - likely acute blood loss anemia 2nd to bladder mass. H/H stable last few days. Daily AM cbc for stability. Iron studies with component of iron deficiency - s/p IV Fe administration. B12/folate wnl. 2. bladder mass - highly suspicious for bladder cancer. Cystoscopy planned for 11/01/[address] Malone. 3. hematuria - 2nd to #2. Holding chemical DVT proph, aspirin, and plavix. 4. probable acute diastolic CHF - lasix IV x 1 today along with K/mag supplementation; labs in AM. Likely occurred in setting of PAF. 5. PAF - resolved. Continue tele status. Cont beta edy. 6. COPD with probable exacerbation - finish z-pack and taper steroids. Cont bronchodilators. Day #4 of zithromax today. Plan 5-days of such. 7. abnormal chest CT w/ tree-in-bud opacities - zithromax. 8. metabolic encephalopathy - improved. Apparently didn't tolerate seroquel. Now getting HS ativan. Tolerating such per family. 9. T2DM, uncontrolled 2nd to steroids - adjust correction factor/carb ratio of novolog. 10. h/o stroke - noted. Resume asa/plavix once cystoscopy is complete. 11. hyponatremia - resolved. 12. acute kidney injury - resolved, Cr at baseline. family updated at bedside today cont PT, OT Continued [facility] stay due to: multiple IV medications needed Discharge planning: uncertain
[2017-10-30] MEDS: GUAIFENESIN SUGAR FREE 200 MG/10 ML UDC PO PRN (21:24)
[2017-10-30] MEDS: LORAZEPAM 1 MG TAB PO SCH (21:24)
[2017-10-30] MEDS: INSULIN GLARGINE SOLOSTAR 100 UNITS/ML 3 ML PEN SC SCH (21:31)
[2017-10-31] VITALS (9 sets, daily range): BP systolic 129–170; BP diastolic 68–85; PULSE 79–91; TEMP 36.3–36.9; O2SAT 91–98
[2017-10-31] MEDS: LORAZEPAM INJ 0.5 MG in SYRINGE 0.25 ML IV PRN (00:11)
[2017-10-31] MEDS: LEVALBUTEROL 0.63MG/3 ML NEB INH SCH ×4 (02:21→20:38)
[2017-10-31] MEDS: IPRATROPIUM BROMIDE NEB SOLN 0.02% 2.5 ML VIAL INH SCH ×4 (02:21→20:38)
[2017-10-31] MEDS: LEVOTHYROXINE 100 MCG TAB PO SCH (05:31)
[2017-10-31 05:52] LABS: HEMOGLOBIN 12.2 g/dL (14.0-18.0); MEAN CELL VOLUME 80.7 fL (80-100); MEAN CORPUSCULAR HEMOGLOBIN 27.4 pg (25-34); MEAN CORPUSCULAR HGB CONC 33.9 g/dl (32-36); MEAN PLATELET VOLUME 8.7 fL (7.4-10.4); PLATELET COUNT 435 K/uL (130-400); RED CELL DISTRIBUTION WIDTH CV 14.9 % (11.5-14.5); WHITE BLOOD COUNT 9.93 K/uL (4.8-10.8)
[2017-10-31 06:27] LABS: CALCIUM 8.9 mg/dl (8.5-10.1); CREATININE 1.02 mg/dl (0.60-1.40); POTASSIUM 3.7 mmol/L (3.5-5.1)
[2017-10-31] MEDS: PANTOprazole SOD 40 MG TAB PO SCH ×2 (08:33→21:40)
[2017-10-31] MEDS: METOPROLOL SUCC 50MG EXT REL TAB PO SCH ×2 (08:33→21:41)
[2017-10-31] MEDS: VENLAFAXINE HCL XR 75 MG CAPXR PO SCH (08:33)
[2017-10-31] MEDS: ATORVASTATIN 40 MG TAB PO SCH (08:33)
[2017-10-31] MEDS: FERROUS SULFATE 325 MG TAB PO SCH ×2 (08:33→17:44)
[2017-10-31] MEDS: MULTIVITAMIN TAB PO SCH (08:33)
[2017-10-31] MEDS: ASCORBIC ACID 500 MG TAB PO SCH (08:34)
[2017-10-31] MEDS: AZITHROMYCIN 250 MG TAB PO SCH (08:44)
[2017-10-31] MEDS: POLYETHYLENE (MIRALAX) 17 GM PACK PO SCH (08:45)
[2017-10-31] MEDS: BUDESONIDE/FORMOTEROL FUMARATE 160/4.5 60 PUFFS/INHALER INH SCH ×2 (08:45→21:39)
[2017-10-31] MEDS: INSULIN ASPART 100 UNITS/ML 3 ML PEN SC SCH ×4 (08:47→21:46)
--- NOTE | 2017-10-31 12:41 | Progress Note ---
Subjective Date of Service: Oct 31, 2017. Subjective Pt evaluation today including: conversation w/ patient, conversation w/ family , physical exam, chart review, lab review, review of inpatient medication list Pain: Denies PO Intake: Eufemia PO diet Voiding: no voiding problems (intermittent hematuria) 77 yo male with multiple medical problems, intermittent hematuria, bladder mass on CT scan pending add on cysto, possible TURBT tomorrow by Dr. Malone. Past notes reviewed. Anticoagulation on hold per primary service for intervention tomorrow. Family present in room today. Problem List Medical Problems: (1) Hyponatremia Status: Acute (2) Medication side effect Status: Acute (3) SOB (shortness of breath) Status: Acute (4) TIA (transient ischemic attack) Status: Acute (5) Troponin level elevated Status: Acute (6) Weakness Status: Acute Review of Systems Constitutional: No fever, No chills Eyes: No worsening of vision ENT: No hearing loss Respiratory: No wheezing, No shortness of breath Cardiac: No chest pain Abdomen: No nausea, No vomiting Male : + see HPI, + hematuria Neurologic: No memory loss, No paralysis Psychiatric: No depression symptoms Heme: + abnormal bleeding/bruising Skin: No new/changing skin lesions, No color change Objective Vital Signs Date Time Temp Pulse Resp B/P (MAP) Pulse Ox O2 Delivery O2 Flow Rate FiO2 10/31/17 12:00 Room Air 10/31/17 11:15 36.6 79 18 158/78 (104) 94 10/31/17 08:00 Room Air 10/31/17 07:42 36.8 86 18 147/79 (101) 91 Room Air 10/31/17 07:33 91 16 94 Room Air 10/31/17 05:02 36.9 91 19 170/85 (113) 92 Room Air 10/31/17 04:00 Room Air 10/31/17 00:00 Room Air 10/30/17 23:24 36.7 95 16 165/87 (113) 93 Room Air 10/30/17 20:00 Room Air 10/30/17 19:37 96 16 94 Room Air 10/30/17 19:02 36.7 86 20 157/75 (102) 94 Room Air 10/30/17 15:45 Room Air 10/30/17 14:39 36.6 87 18 143/69 (93) 100 10/30/17 14:10 92 16 95 Room Air Physical Exam General Appearance: WD/WN, no apparent distress ENT: hearing grossly normal Neck: supple, no adenopathy Respiratory/Chest: no respiratory distress, no accessory muscle use Cardiovascular: no JVD Abdomen: non tender, soft Extremities: non-tender Neurologic/Psychiatric: alert, oriented x 3 Skin: normal color Laboratory Results Last 24 Hours Test 10/30/17 16:29 10/30/17 20:19 10/31/17 05:41 10/31/17 05:59 Bedside Glucose 130 mg/dl 325 mg/dl 74 mg/dl White Blood Count 9.93 K/uL Red Blood Count 4.46 M/uL Hemoglobin 12.2 g/dL Hematocrit 36.0 % Mean Corpuscular Volume 80.7 fL Mean Corpuscular Hemoglobin 27.4 pg Mean Corpuscular Hemoglobin Concent 33.9 g/dl RDW Standard Deviation 43.0 fL RDW Coefficient of Variation 14.9 % Platelet Count 435 K/uL Mean Platelet Volume 8.7 fL Sodium Level 138 mmol/L Potassium Level 3.7 mmol/L Chloride Level 101 mmol/L Carbon Dioxide Level 31 mmol/L Anion Gap 6.0 mmol/L Blood Urea Nitrogen 14 mg/dl Creatinine 1.02 mg/dl Est Creatinine Clear Calc Drug Dose 62.7 ml/min Estimated GFR () 82.4 Estimated GFR (Non- 71.1 BUN/Creatinine Ratio 14.0 Random Glucose 57 mg/dl Calcium Level 8.9 mg/dl Magnesium Level 2.0 mg/dl Test 10/31/17 07:08 10/31/17 11:45 Bedside Glucose 121 mg/dl 163 mg/dl Assessment and Plan A/P 77 yo male with bladder mass on CT scan, hematuria. Questions answered with patient and family, risks and benefits of surgical plan reviewed. Optimization for operative intervention by primary service, OR as planned Nov 01, [address] Malone. NPO after midnight, [employer] consultant for OR seen Levofloxacin allergy, IVF ordered when NPO, anticoagulation on hold per primary service. Continued [facility] stay due to: multiple IV medications needed Discharge planning: uncertain
--- NOTE | 2017-10-31 13:21 | Progress Note ---
Subjective Date of Service: Oct 31, 2017. Subjective Pt evaluation today including: conversation w/ patient, physical exam, chart review, lab review Pain: denies PO Intake: normal Voiding: no voiding problems (although he had episode of gross hematuria once again this AM) cough, orthopnea, and dyspnea all improved this AM slept much better last night staff report owning once again he overall feels better and is anxious to get his cystoscopy done tomorrow Problem List Medical Problems: (1) Hyponatremia Status: Acute (2) Medication side effect Status: Acute (3) SOB (shortness of breath) Status: Acute (4) TIA (transient ischemic attack) Status: Acute (5) Troponin level elevated Status: Acute (6) Weakness Status: Acute Review of Systems Constitutional: No fever Respiratory: No shortness of breath, No dyspnea on exertion Cardiac: No chest pain, No orthopnea, No edema Abdomen: No pain Objective Vital Signs Date Time Temp Pulse Resp B/P (MAP) Pulse Ox O2 Delivery O2 Flow Rate FiO2 10/31/17 12:00 Room Air 10/31/17 11:15 36.6 79 18 158/78 (104) 94 10/31/17 08:00 Room Air 10/31/17 07:42 36.8 86 18 147/79 (101) 91 Room Air 10/31/17 07:33 91 16 94 Room Air 10/31/17 05:02 36.9 91 19 170/85 (113) 92 Room Air 10/31/17 04:00 Room Air 10/31/17 00:00 Room Air 10/30/17 23:24 36.7 95 16 165/87 (113) 93 Room Air 10/30/17 20:00 Room Air 10/30/17 19:37 96 16 94 Room Air 10/30/17 19:02 36.7 86 20 157/75 (102) 94 Room Air 10/30/17 15:45 Room Air 10/30/17 14:39 36.6 87 18 143/69 (93) 100 10/30/17 14:10 92 16 95 Room Air Physical Exam General Appearance: no apparent distress ENT: pharynx normal Neck: no JVD (resolved) Respiratory/Chest: no respiratory distress, no accessory muscle use, + crackles (focal, right base only; otherwise lungs sound better today) Cardiovascular: regular rate, rhythm, no gallop, no murmur Abdomen: normal bowel sounds, non tender, soft, no organomegaly Extremities: no pedal edema Neurologic/Psychiatric: alert Laboratory Results Last 24 Hours Test 10/30/17 16:29 10/30/17 20:19 10/31/17 05:41 10/31/17 05:59 Bedside Glucose 130 mg/dl 325 mg/dl 74 mg/dl White Blood Count 9.93 K/uL Red Blood Count 4.46 M/uL Hemoglobin 12.2 g/dL Hematocrit 36.0 % Mean Corpuscular Volume 80.7 fL Mean Corpuscular Hemoglobin 27.4 pg Mean Corpuscular Hemoglobin Concent 33.9 g/dl RDW Standard Deviation 43.0 fL RDW Coefficient of Variation 14.9 % Platelet Count 435 K/uL Mean Platelet Volume 8.7 fL Sodium Level 138 mmol/L Potassium Level 3.7 mmol/L Chloride Level 101 mmol/L Carbon Dioxide Level 31 mmol/L Anion Gap 6.0 mmol/L Blood Urea Nitrogen 14 mg/dl Creatinine 1.02 mg/dl Est Creatinine Clear Calc Drug Dose 62.7 ml/min Estimated GFR () 82.4 Estimated GFR (Non- 71.1 BUN/Creatinine Ratio 14.0 Random Glucose 57 mg/dl Calcium Level 8.9 mg/dl Magnesium Level 2.0 mg/dl Test 10/31/17 07:08 10/31/17 11:45 Bedside Glucose 121 mg/dl 163 mg/dl Assessment and Plan 77yo male with: 1. anemia - likely acute blood loss anemia 2nd to bladder mass. H/H stable once again today. Daily AM cbc for stability. Iron studies with component of iron deficiency - s/p IV Fe administration. B12/folate wnl. 2. bladder mass - highly suspicious for bladder cancer. Cystoscopy planned - by Dr. Malone. 3. hematuria - 2nd to #2. Holding chemical DVT proph, aspirin, and plavix. Despite such H/H have been stable. 4. acute diastolic CHF - resolved. No further lasix; observe; control his BP. 5. PAF - resolved. Continue tele status. Cont beta edy. 6. COPD with probable exacerbation - improved. Cont bronchodilators. Day #5 of zithromax today. Plan 5-days of such. Wean steroids in [address]. 7. abnormal chest CT w/ tree-in-bud opacities - zithromax. 8. metabolic encephalopathy - only; mental status during the day is normal. Supportive care. 9. T2DM - improved. Did have low glucose this AM likely due to HS novolog. Follow for now. If lows persist then back off insulin. 10. h/o stroke - noted. Resume asa/plavix once cystoscopy is complete. 11. hyponatremia - resolved. 12. acute kidney injury - resolved, Cr stable. cont PT, OT dispo - uncertain Continued [facility] stay due to: multiple IV medications needed Discharge planning: uncertain
[2017-10-31] MEDS ORDERED: INSULIN GLARGINE SOLOSTAR 100 UNITS/ML 3 ML PEN SC SCH (21:00)
[2017-10-31] MEDS: GUAIFENESIN SUGAR FREE 200 MG/10 ML UDC PO PRN (21:38)
[2017-10-31] MEDS: LORAZEPAM 1 MG TAB PO SCH (21:41)
[2017-10-31] MEDS ORDERED: SODIUM CHLORIDE 0.9% 1000ML 1,000 ML IV SCH (23:30)
[2017-11-01] VITALS (13 sets, daily range): BP systolic 133–163; BP diastolic 67–79; PULSE 69–85; TEMP 36.2–36.8; O2SAT 90–97; BMI 20.9
[2017-11-01] MEDS ORDERED: D5W AND NSS 1,000 ML IV SCH (02:00)
[2017-11-01] MEDS: LEVALBUTEROL 0.63MG/3 ML NEB INH SCH ×4 (02:50→19:49)
[2017-11-01] MEDS: IPRATROPIUM BROMIDE NEB SOLN 0.02% 2.5 ML VIAL INH SCH ×4 (02:50→19:49)
[2017-11-01] MEDS: LEVOTHYROXINE 100 MCG TAB PO SCH (05:06)
[2017-11-01] MEDS ORDERED: GENTAMICIN INJ 120 MG in DEXTROSE 5% 100ML 100 ML IV ONE (06:00)
[2017-11-01] MEDS ORDERED: EpHEDrine SULFATE INJ 50 MG/ML AMP IV PRN (07:45)
[2017-11-01] MEDS ORDERED: ATROPINE SULFATE 0.1 MG/ML 5ML SYR IV PRN (07:45)
[2017-11-01] MEDS ORDERED: FENTANYL CITRATE INJ 50 MCG/1 ML 2 ML VIAL IV PRN (07:45)
[2017-11-01] MEDS ORDERED: ONDANSETRON INJ 2 MG/ML 2 ML VIAL IV PRN (07:45)
[2017-11-01] MEDS: FERROUS SULFATE 325 MG TAB PO SCH ×2 (08:00→16:04)
[2017-11-01] MEDS: INSULIN ASPART 100 UNITS/ML 3 ML PEN SC SCH ×5 (08:02→20:42)
[2017-11-01] MEDS: BUDESONIDE/FORMOTEROL FUMARATE 160/4.5 60 PUFFS/INHALER INH SCH ×2 (08:03→20:39)
[2017-11-01] MEDS: METOPROLOL SUCC 50MG EXT REL TAB PO SCH ×2 (08:40→20:40)
[2017-11-01] MEDS: PANTOprazole SOD 40 MG TAB PO SCH ×2 (09:00→20:39)
--- NOTE | 2017-11-01 09:15 | Hospitalist Progress Note ---
Hospitalist Progress Note Date of Service Nov 01, 2017. (Rica De La Paz PA-C) Subjective Pt evaluation today including: conversation w/ patient, physical exam, chart review, lab review, review of studies Pain: None PO Intake: NPO for procedure Voiding: no voiding problems, no incontinence The patient was seen and examined this morning. Pt reports feeling well today, anticipating cystoscopy today. His , Jocy and daughter are present at bedside. He still has bright red to dark red hematuria. He denies abd pain, cramping, soreness or pain with urination. Pt denies lightheadedness or dizziness. No excess fatigue. ROS: 6 point ROS reviewed and otherwise negative. (Rica De La Paz PA-C) Objective Vital Signs Date Time Temp Pulse Resp B/P (MAP) Pulse Ox O2 Delivery O2 Flow Rate FiO2 11/01/17 08:00 Room Air 11/01/17 07:35 78 16 96 Room Air 11/01/17 07:22 36.6 76 18 163/79 (107) 97 Room Air 11/01/17 04:15 96 Room Air 11/01/17 04:00 36.8 78 18 151/68 (95) 96 Room Air 11/01/17 00:30 96 Room Air 11/01/17 00:00 36.6 69 20 152/74 (100) 96 Room Air 10/31/17 20:39 80 16 98 Room Air 10/31/17 20:22 93 Room Air 10/31/17 19:46 36.3 84 18 129/68 (88) 93 Room Air 10/31/17 16:00 Room Air 10/31/17 15:40 36.6 86 18 164/81 (108) 93 Room Air 10/31/17 15:03 83 16 94 Room Air 10/31/17 12:00 Room Air 10/31/17 11:15 36.6 79 18 158/78 (104) 94 (Rica De La Paz PA-C) Physical Exam General Appearance: WD/WN, no apparent distress, + pertinent finding (pale) Eyes: PERRL, EOMI ENT: hearing grossly normal, pharynx normal Neck: supple, no JVD Respiratory/Chest: lungs clear, no respiratory distress, no accessory muscle use, + pertinent finding (on room air) Cardiovascular: regular rate, rhythm, no murmur Abdomen: normal bowel sounds, non tender, soft Extremities: non-tender, no pedal edema Neurologic/Psychiatric: alert, normal mood/affect, oriented x 3 Skin: warm/dry, + pallor (Rica De La Paz PA-C) Laboratory Results Last 24 Hours Test 10/31/17 11:45 10/31/17 16:23 10/31/17 19:05 11/01/17 01:04 Bedside Glucose 163 mg/dl 246 mg/dl 305 mg/dl 53 mg/dl Test 11/01/17 01:23 11/01/17 01:44 11/01/17 02:19 11/01/17 07:35 Bedside Glucose 67 mg/dl 73 mg/dl 96 mg/dl 200 mg/dl (Rica De La Paz PA-C) Assessment and Plan 77yo male with: Anemia - likely acute blood loss anemia 2nd to bladder mass. - H/H stable, follow daily cbc - Iron studies with component of iron deficiency - s/p IV Fe administration. - B12/folate wnl. Bladder mass - highly suspicious for bladder cancer. Cystoscopy planned - 11/01/[address] Malone. Hematuria - 2nd bladder mass - Holding chemical DVT proph, aspirin, and plavix. Despite such H/H have been stable. Acute diastolic CHF - resolved. - No further lasix; observe; control his BP. PAF - resolved. - Continue tele status. - Cont beta edy. COPD with probable exacerbation - improved. Abnormal chest CT w/ tree-in-bud opacities - Cont bronchodilators. - Finished 5d course of zithromax on 10/31 - Prednisone taper- had 2 days of 20 mg, did not get prednisone yet today - down to 10 mg starting tomorrow Metabolic encephalopathy - only; mental status during the day is normal. Supportive care. T2DM - improved. - Did have low glucose this AM likely due to HS novolog - lantus 20 U, this has been reduced from 35 U but pt may benefit from slight reduction again. - Follow for now H/o stroke - noted. - Resume asa/plavix once cystoscopy is complete. Hyponatremia - resolved. Acute kidney injury - resolved, Cr stable. DVT ppx: Teds, scds, no chemical anticoagulation in light of acute blood loss as above CODE STATUS: Full Code Disposition: From home, lives with (Rica De La Paz, TANA) Attending Attestation: Pt seen/examined, chart reviewed, care plan d/w DUTCH De La Paz. I agree w/ the castro components of her documentation. I saw the pt post-cystoscopy. Mondragon was in place draining red urine. He denied any pain or dyspnea. Family at bedside. VSS, afebrile gen - nad heart - RRR, s1, s2 neck - no JVD lungs - fine dry rales bases b/l abd - soft, NT, minimally distended, BS+ ext - no edema A/P: bladder mass, s/p cysto with TURBT today by Dr. Malone. mass highly suspicious for bladder cancer. management per urology. Diabetes with hypoglycemia this AM - agree that HS novolog caused the low. Doubt lantus as he received LESS lantus than his usual amount. He will spike tonight as he received perioperative decadron. Increase lantus back to 30 units HS & continue novolog w/ correction / carb ratio. Repeat BMP/CBC in am. Family updated. Jae Perez MD (Jae Perez MD)
[2017-11-01] MEDS ORDERED: FENTANYL CITRATE INJ 50 MCG/1 ML 2 ML VIAL ONE (11:35)
[2017-11-01] MEDS ORDERED: MIDAZOLAM HCL 1 MG/ML 2ML VIAL ONE (11:36)
[2017-11-01] MEDS ORDERED: PROPOFOL IV EMULSION 10 MG/ML 20 ML VIAL IV ONE (12:27)
[2017-11-01] MEDS ORDERED: ONDANSETRON INJ 2 MG/ML 2 ML VIAL ONE (12:27)
[2017-11-01] MEDS ORDERED: LIDOCAINE HCL 2% 2 ML VIAL (20MG/ML) ONE (12:27)
--- NOTE | 2017-11-01 12:28 | Progress Note ---
Subjective Date of Service: Nov 01, 2017. Subjective Pt evaluation today including: conversation w/ patient, physical exam, chart review, lab review, review of studies 77y/o male w/ complex chronic and acute medical histories with numerous, significant co-morbid conditions - intermittent hematuria for several weeks - CT revealing a large bladder mass on the posterior left wall - Afib, COPD, general status have all been optimized over the past several days in anticipation of intervention (TURBT) Test 11/01/17 11:44 Bedside Glucose 189 mg/dl (70-99) Problem List Medical Problems: (1) Hyponatremia Status: Acute (2) Medication side effect Status: Acute (3) SOB (shortness of breath) Status: Acute (4) TIA (transient ischemic attack) Status: Acute (5) Troponin level elevated Status: Acute (6) Weakness Status: Acute Review of Systems Constitutional: No see HPI, No fever, No chills, No sweats, No weight loss, No weakness, No fatigue, No problem reported Eyes: No see HPI, No worsening of vision, No eye pain, No redness, No discharge , No diplopia, No problem reported ENT: No see HPI, No hearing loss, No unusual epistaxis, No nasal symptoms, No sore throat, No tinnitus, No dental problems, No trouble swallowing, No problem reported Respiratory: No see HPI, No cough, No sputum, No wheezing, No shortness of breath, No dyspnea on exertion, No dyspnea at rest, No hemoptysis, No problem reported Cardiac: No see HPI, No chest pain, No orthopnea, No PND, No edema, No claudication, No palpitations, No problem reported Breast: No see HPI, No breast lump, No change in shape, No nipple discharge, No breast pain, No problem reported Abdomen: No pain, No nausea Musculoskeletal: No joint pain Male : + hematuria, + problem reported Neurologic: + memory loss Psychiatric: No see HPI, No depression symptoms, No anhedonism, No anxiety, No insomnia, No substance abuse, No problem reported Heme: No see HPI, No abnormal bleeding/bruising, No clotting problems, No swollen lymph nodes, No night sweats, No problem reported Endo: No see HPI, No fatigue, No excessive thirst, No excessive urination, No problem reported Skin: No see HPI, No rash, No itch, No new/changing skin lesions, No color change, No bleeding, No problem reported All Other Systems: Reviewed and Negative Objective Vital Signs Date Time Temp Pulse Resp B/P (MAP) Pulse Ox O2 Delivery O2 Flow Rate FiO2 11/01/17 11:49 36.6 73 18 133/71 (91) 94 Room Air 11/01/17 08:00 Room Air 11/01/17 07:35 78 16 96 Room Air 11/01/17 07:22 36.6 76 18 163/79 (107) 97 Room Air 11/01/17 04:15 96 Room Air 11/01/17 04:00 36.8 78 18 151/68 (95) 96 Room Air 11/01/17 00:30 96 Room Air 11/01/17 00:00 36.6 69 20 152/74 (100) 96 Room Air 10/31/17 20:39 80 16 98 Room Air 10/31/17 20:22 93 Room Air 10/31/17 19:46 36.3 84 18 129/68 (88) 93 Room Air 10/31/17 16:00 Room Air 10/31/17 15:40 36.6 86 18 164/81 (108) 93 Room Air 10/31/17 15:03 83 16 94 Room Air Physical Exam General Appearance: WD/WN, no apparent distress Eyes: normal inspection ENT: hearing grossly normal Neck: no adenopathy Respiratory/Chest: no respiratory distress, no accessory muscle use Cardiovascular: regular rate, rhythm Abdomen: non tender, soft Extremities: normal range of motion, normal inspection Neurologic/Psychiatric: alert, normal mood/affect, oriented x 3 Skin: warm/dry Lymphatic: no adenopathy Laboratory Results Last 24 Hours Test 10/31/17 16:23 10/31/17 19:05 11/01/17 01:04 11/01/17 01:23 Bedside Glucose 246 mg/dl 305 mg/dl 53 mg/dl 67 mg/dl Test 11/01/17 01:44 11/01/17 02:19 11/01/17 07:35 11/01/17 11:44 Bedside Glucose 73 mg/dl 96 mg/dl 200 mg/dl 189 mg/dl Assessment and Plan Large bladder tumor; hematuria - discussed imaging findings and suspected diagnosis - plan for cystoscopy and possible TURBT to fully evaluate and potentially treat - resume anticoagulation within 2-3 days of surgery if recovering appropriately. Continued [facility] stay due to: multiple IV medications needed Discharge planning: uncertain
[2017-11-01] MEDS ORDERED: CIPROFLOXACIN 400MG / 200ML D5W ONE (12:57)
[2017-11-01] MEDS ORDERED: NEOSTIGMINE METHYLSULFATE 5 MG/5 ML SYR ONE (13:35)
[2017-11-01] MEDS ORDERED: SUCCINYLCHOLINE 100MG/5ML SYR IV ONE (13:35)
[2017-11-01] MEDS ORDERED: GLYCOPYRROLATE INJ 0.2 MG/ML VIAL ONE (13:35)
[2017-11-01] MEDS ORDERED: ROCURONIUM BROMIDE 10 MG/ML 5 ML VIAL IV ONE (13:35)
[2017-11-01] MEDS ORDERED: DEXAMETHASONE SOD INJ 4 MG/ML VIAL ONE (13:36)
[2017-11-01] MEDS ORDERED: LORAZEPAM 2 MG/ML 1 ML VIAL ONE (14:39)
--- NOTE | 2017-11-01 14:43 | [facility] Operative Report ---
Operative Report Operative Date Nov 01, 2017. Pre-Operative Diagnosis Bladder Mass Post-Operative Diagnosis Same Procedure(s) Performed Transurethral Resection Bladder Tumor (Large); evacuation of clot Surgeon Dr. Malone Industrial Sales Manager Surgeon(s) none Estimated Blood Loss 25ML Findings Very large bladder tumor arising from the left lateral wall, immediately adjacent to, but not involving, the L UO. tumor >5cm2 Specimens A. Bladder tumor Drains 18F councill Anesthesia Gen Complication(s) None Disposition Recovery Room / PACU (stable) Indications Significant hematuria from a large bladder tumor Description of Procedure The patient was identified in the preoperative holding area, appropriate informed consent reviewed and completed and he was transported to the operating suite. Upon arrival he received appropriate preoperative antibiotics in the form of gentamicin. Adequate general anesthesia was achieved and the patient was intubated and placed in dorsal lithotomy position where he was sterilely prepped and draped in standard fashion. Paralysis was induced before introduction of the 24 Angolan resectoscope with 30 lens and visual obturator. He has no evidence of urethral stricture disease, but he does have a large prostate with a small intravesical component. Visualization upon entry into the bladder was very compromised by old blood. Approximately 100 mL of clot was irrigated and the bladder. The tumor was easily seen protruding from the left lateral wall, however details of this were somewhat compromised by continued mild bleeding from the tumor itself. I made my best effort to evaluate the entire bladder, however visualization remained challenging I elected turned my attention to the tumor and treat this tumor as my primary step. At the initiation of resection, I was unable to visualize the ureteral orifice. Instead, I believe elected to start lateral aspect of this tumor resected from lateral to medial. I carefully working the way through the tumor until I appreciated healthy-appearing lateral tissue at the base of the mass. I carefully fulgurated vessels that were found to be bleeding at the base. Ultimately, I was able to entirely resect the tumor, and as I evaluated the medial aspect of the tumor, I was able to identify the ureteral orifice proximally 1 cm from the tumor. I irrigated all tumor chips out of the bladder and then returned to fulgurate the base of the resection site further. There is excellent hemostasis at that time. I conducted a full 30 and 70 inspection of the bladder revealing no other bladder tumors. I withdrew the scope and attempted to pass an 18 Angolan Coud catheter. Unfortunately, catheter would not pass easily. I reintroduced the scope and placed a wire through the lumen of the scope. I then placed an 18 Angolan lummi tip catheter over the wire. Patient was subsequently extubated and taken to the PACU in stable condition. I attest to the content of the Intraoperative Record and any orders documented therein. Any exceptions are noted below.
[2017-11-01] MEDS: LORAZEPAM INJ 1 MG in SYRINGE 0.5 ML IV PRN (14:44)
--- NOTE | 2017-11-01 15:51 | Anesthesiology Progress Note ---
Anesthesia Post Op Note Date & Time Nov 01, 2017 at 15:51 Vital Signs Pain Intensity: 0 Vital Signs Past 12 Hours Date Time Temp Pulse Resp B/P (MAP) Pulse Ox O2 Delivery O2 Flow Rate FiO2 11/01/17 15:05 168/82 11/01/17 15:00 78 16 168/100 94 Room Air 11/01/17 14:50 36.3 83 17 179/94 93 Room Air 11/01/17 14:40 81 14 192/102 100 Oxymask 10 11/01/17 14:30 91 17 156/105 99 Oxymask 10 11/01/17 14:22 36.8 81 14 173/94 93 Oxymask 10 11/01/17 12:00 Room Air 11/01/17 11:49 36.6 73 18 133/71 (91) 94 Room Air 11/01/17 08:00 Room Air 11/01/17 07:35 78 16 96 Room Air 11/01/17 07:22 36.6 76 18 163/79 (107) 97 Room Air 11/01/17 04:15 96 Room Air 11/01/17 04:00 36.8 78 18 151/68 (95) 96 Room Air Notes Mental Status: alert / awake / arousable, participated in evaluation Pt Amnestic to Procedure: Yes Nausea / Vomiting: adequately controlled Pain: adequately controlled Airway Patency, RR, SpO2: stable & adequate BP & HR: stable & adequate Hydration State: stable & adequate Anesthetic Complications: no major complications apparent
[2017-11-01] MEDS: ASCORBIC ACID 500 MG TAB PO SCH (16:04)
[2017-11-01] MEDS: ATORVASTATIN 40 MG TAB PO SCH (16:04)
[2017-11-01] MEDS: POLYETHYLENE (MIRALAX) 17 GM PACK PO SCH (16:04)
[2017-11-01] MEDS: VENLAFAXINE HCL XR 75 MG CAPXR PO SCH (16:04)
[2017-11-01] MEDS: MULTIVITAMIN TAB PO SCH (16:04)
[2017-11-01] MEDS: LORAZEPAM 0.5 MG TAB PO PRN (20:40)
[2017-11-01] MEDS: INSULIN GLARGINE SOLOSTAR 100 UNITS/ML 3 ML PEN SC SCH (20:41)
[2017-11-01] MEDS: LORAZEPAM 1 MG TAB PO SCH (22:18)
[2017-11-02] VITALS (12 sets, daily range): BP systolic 128–156; BP diastolic 67–78; PULSE 70–84; TEMP 36.3–36.4; O2SAT 91–97
[2017-11-02] MEDS: IPRATROPIUM BROMIDE NEB SOLN 0.02% 2.5 ML VIAL INH SCH ×4 (02:25→19:01)
[2017-11-02] MEDS: LEVALBUTEROL 0.63MG/3 ML NEB INH SCH ×4 (02:25→19:01)
[2017-11-02] MEDS: GUAIFENESIN SUGAR FREE 200 MG/10 ML UDC PO PRN ×2 (03:11→23:24)
[2017-11-02] MEDS: LEVOTHYROXINE 100 MCG TAB PO SCH (06:07)
[2017-11-02] MEDS: PANTOprazole SOD 40 MG TAB PO SCH ×2 (08:20→20:49)
[2017-11-02] MEDS: METOPROLOL SUCC 50MG EXT REL TAB PO SCH ×2 (08:20→20:49)
[2017-11-02] MEDS: POLYETHYLENE (MIRALAX) 17 GM PACK PO SCH (08:20)
[2017-11-02] MEDS: FERROUS SULFATE 325 MG TAB PO SCH ×2 (08:20→16:45)
[2017-11-02] MEDS: BUDESONIDE/FORMOTEROL FUMARATE 160/4.5 60 PUFFS/INHALER INH SCH ×2 (08:23→20:48)
[2017-11-02] MEDS: INSULIN ASPART 100 UNITS/ML 3 ML PEN SC SCH ×4 (08:28→20:51)
--- NOTE | 2017-11-02 08:28 | Progress Note ---
Subjective Date of Service: Nov 02, 2017. Subjective Pt evaluation today including: conversation w/ patient, physical exam, chart review, lab review Voiding: goel catheter in place Did very well overnight - urine clear - tolerated the catheter - reports he feels well Problem List Medical Problems: (1) Hyponatremia Status: Acute (2) Medication side effect Status: Acute (3) SOB (shortness of breath) Status: Acute (4) TIA (transient ischemic attack) Status: Acute (5) Troponin level elevated Status: Acute (6) Weakness Status: Acute Review of Systems Constitutional: No see HPI, No fever, No chills, No sweats, No weight loss, No weakness, No fatigue, No problem reported Respiratory: No see HPI, No cough, No sputum, No wheezing, No shortness of breath, No dyspnea on exertion, No dyspnea at rest, No hemoptysis, No problem reported Abdomen: No see HPI, No pain, No nausea, No vomiting, No diarrhea, No constipation, No GI bleeding, No problem reported Objective Vital Signs Date Time Temp Pulse Resp B/P (MAP) Pulse Ox O2 Delivery O2 Flow Rate FiO2 11/02/17 07:47 36.4 75 18 139/77 (97) 91 Room Air 11/02/17 07:45 91 Room Air 11/02/17 04:00 Room Air 11/02/17 02:25 76 16 95 Room Air 11/02/17 00:00 Room Air 11/02/17 00:00 36.3 79 17 128/71 (90) 93 Nasal Cannula 11/01/17 20:00 Room Air 11/01/17 19:49 75 16 95 Room Air 11/01/17 19:32 36.2 85 16 135/67 (89) 94 Room Air 11/01/17 17:37 80 18 149/68 (95) 91 Room Air 11/01/17 16:47 82 156/78 (104) 94 Room Air 11/01/17 16:08 73 20 154/78 (103) 94 Room Air 11/01/17 16:00 Room Air 11/01/17 15:16 36.5 76 20 159/77 (104) 90 Room Air 11/01/17 15:05 168/82 11/01/17 15:00 78 16 168/100 94 Room Air 11/01/17 14:50 36.3 83 17 179/94 93 Room Air 11/01/17 14:40 81 14 192/102 100 Oxymask 10 11/01/17 14:30 91 17 156/105 99 Oxymask 10 11/01/17 14:22 36.8 81 14 173/94 93 Oxymask 10 11/01/17 12:00 Room Air 11/01/17 11:49 36.6 73 18 133/71 (91) 94 Room Air Physical Exam General Appearance: no apparent distress Eyes: normal inspection Respiratory/Chest: no respiratory distress Abdomen: non tender, soft Extremities: non-tender Neurologic/Psychiatric: alert, normal mood/affect, oriented x 3 Laboratory Results Last 24 Hours Test 11/01/17 11:44 11/01/17 14:27 11/01/17 16:27 11/01/17 19:38 Bedside Glucose 189 mg/dl 203 mg/dl 230 mg/dl 350 mg/dl Test 11/02/17 07:36 Bedside Glucose 188 mg/dl Assessment and Plan Large bladder tumor; hematuria POD #1 s/p TURBT - voiding trial today - urine clear now - if he remains clear for the next 24 hrs, consider resuming plavix, etc Continued [facility] stay due to: multiple IV medications needed Discharge planning: uncertain
--- NOTE | 2017-11-02 08:34 | Hospitalist Progress Note ---
Hospitalist Progress Note Date of Service Nov 02, 2017. (Rica De La Paz PA-C) Subjective Pt evaluation today including: conversation w/ patient, physical exam, chart review Pain: None PO Intake: good Voiding: no voiding problems The patient was seen and examined this morning. Pt reports doing well. His daughter Rebecca is present at bedside. Goel cath removed earlier this morning, pt has not yet voided. He denies abdominal pain, cramping or discomfort. No fever , chills or sweats. He has been drinking some fluids but daughter reporting he could be drinking a little more. He has been walking about the room without difficulty. ROS: 6 point ROS reviewed and otherwise negative. (Rica De La Paz PA-C) Objective Vital Signs Date Time Temp Pulse Resp B/P (MAP) Pulse Ox O2 Delivery O2 Flow Rate FiO2 11/02/17 07:47 36.4 75 18 139/77 (97) 91 Room Air 11/02/17 07:45 91 Room Air 11/02/17 04:00 Room Air 11/02/17 02:25 76 16 95 Room Air 11/02/17 00:00 Room Air 11/02/17 00:00 36.3 79 17 128/71 (90) 93 Nasal Cannula 11/01/17 20:00 Room Air 11/01/17 19:49 75 16 95 Room Air 11/01/17 19:32 36.2 85 16 135/67 (89) 94 Room Air 11/01/17 17:37 80 18 149/68 (95) 91 Room Air 11/01/17 16:47 82 156/78 (104) 94 Room Air 11/01/17 16:08 73 20 154/78 (103) 94 Room Air 11/01/17 16:00 Room Air 11/01/17 15:16 36.5 76 20 159/77 (104) 90 Room Air 11/01/17 15:05 168/82 11/01/17 15:00 78 16 168/100 94 Room Air 11/01/17 14:50 36.3 83 17 179/94 93 Room Air 11/01/17 14:40 81 14 192/102 100 Oxymask 10 11/01/17 14:30 91 17 156/105 99 Oxymask 10 1/2/18 14:22 36.8 81 14 173/94 93 Oxymask 10 11/01/17 12:00 Room Air 11/01/17 11:49 36.6 73 18 133/71 (91) 94 Room Air (Rica De La Paz PA-C) Physical Exam Notes: General Appearance: WD/WN, no apparent distress, + pertinent finding (pale) Eyes: PERRL, EOMI ENT: hearing grossly normal, pharynx normal Neck: supple, no JVD Respiratory/Chest: lungs clear, no respiratory distress, no accessory muscle use, + pertinent finding (on room air) Cardiovascular: regular rate, rhythm, no murmur Abdomen: normal bowel sounds, non tender, soft, goel catheter out. Extremities: non-tender, no pedal edema Neurologic/Psychiatric: alert, normal mood/affect, oriented x 3 Skin: warm/dry, + pallor (Rica De La Paz PA-C) Laboratory Results Last 24 Hours Test 11/01/17 11:44 11/01/17 14:27 11/01/17 16:27 11/01/17 19:38 Bedside Glucose 189 mg/dl 203 mg/dl 230 mg/dl 350 mg/dl Test 11/02/17 07:36 Bedside Glucose 188 mg/dl (Rica De La Paz PA-C) Assessment and Plan 77yo male with: Anemia - likely acute blood loss anemia 2nd to bladder mass. - H/H stable, follow cbc - Iron studies with component of iron deficiency - s/p IV Fe administration. - B12/folate wnl. Bladder mass - highly suspicious for bladder cancer. - S/p Cystoscopy 11/01/[address] Malone with tumor removal, clot evacuation and biopsy sent for pathology. Will need uro follow up in 1-2 weeks post discharge. Hematuria - 2nd bladder mass - Holding chemical DVT proph and plavix. Despite such H/H have been stable. - next H&H tomorrow am. Likely can start plavix tomorrow if urine is clear for 24 hours. Acute diastolic CHF - resolved. - No further lasix; observe; control his BP. PAF - resolved. - Continue tele status. - Cont beta edy. COPD with probable exacerbation - improved. Abnormal chest CT w/ tree-in-bud opacities - Cont bronchodilators. - Finished 5d course of zithromax on 10/31 - Prednisone taper- had 2 days of 20 mg, did not get prednisone yet today - down to 10 mg starting tomorrow Metabolic encephalopathy - only; mental status during the day is normal. Supportive care. T2DM - improved. - Did have low glucose this AM likely due to HS novolog - lantus 20 U, this has been reduced from 35 U but pt may benefit from slight reduction again. - Follow for now H/o stroke - noted. - Resume plavix tomorrow morning if urine remains clear x 24 hours. - Daughter notes pt is not on asa. Hyponatremia - resolved. Acute kidney injury - resolved, Cr stable. DVT ppx: Teds, scds, no chemical anticoagulation in light of acute blood loss as above CODE STATUS: Full Code Disposition: From home, lives with , possible dc tomorrow. (Rica De La Paz, TANA) Attending Attestation: Pt seen/examined, chart reviewed, care plan d/w DUTCH De La Paz. I agree w/ the castro components of her documentation except - patient already IS on 10mg of prednisone and patient is currently on lantus 30 units HS. He did not have any hypoglycemia this AM or today. Patient having frequency and dribbling of urination w/ incomplete emptying. I asked staff to check bladder scan/PVR -- 450cc. Dr. Malone contacted - goel to be placed back. VSS, afebrile gen - nad heart - RRR, s1, s2 neck - no JVD lungs - scant dry rales bases b/l abd - soft, NT, distended over bladder, BS+ ext - no edema A/P: bladder mass, POD #1, s/p cysto with TURBT by Dr. Malone. path c/w NONINVASIVE PAPILLARY UROTHELIAL CARCINOMA, HIGH-GRADE management per urology. urinary retention - goel to be placed back. Diabetes, labile - body habitus would suggest T1DM physiology. leave lantus as is at 30 units HS increase correction factor to 20 and carb ratio of 1:6 recent acute diastolic CHF - resolved recent acute bronchitis - resolving; prednisone 10mg 1-2 more days then stop family updated at bedside dispo - home Jae Perez MD (Jae Perez MD)
--- NOTE | 2017-11-02 08:44 | Anesthesiology Progress Note ---
Anesthesia Post Op Note Date & Time Nov 02, 2017 at 08:43 Vital Signs Vital Signs Past 12 Hours Date Time Temp Pulse Resp B/P (MAP) Pulse Ox O2 Delivery O2 Flow Rate FiO2 11/02/17 07:47 36.4 75 18 139/77 (97) 91 Room Air 11/02/17 07:45 91 Room Air 11/02/17 04:00 Room Air 11/02/17 02:25 76 16 95 Room Air 11/02/17 00:00 Room Air 11/02/17 00:00 36.3 79 17 128/71 (90) 93 Nasal Cannula Notes Mental Status: alert / awake / arousable, participated in evaluation Pt Amnestic to Procedure: Yes Nausea / Vomiting: adequately controlled Pain: adequately controlled Airway Patency, RR, SpO2: stable & adequate BP & HR: stable & adequate Hydration State: stable & adequate Anesthetic Complications: no major complications apparent
[2017-11-02] MEDS: ASCORBIC ACID 500 MG TAB PO SCH (09:19)
[2017-11-02] MEDS: ATORVASTATIN 40 MG TAB PO SCH (09:19)
[2017-11-02] MEDS: MULTIVITAMIN TAB PO SCH (09:19)
[2017-11-02] MEDS: VENLAFAXINE HCL XR 75 MG CAPXR PO SCH (09:19)
[2017-11-02 10:40] LABS: HEMATOCRIT 36.4 % (42-52); HEMOGLOBIN 12.1 g/dL (14.0-18.0); MEAN CELL VOLUME 81.4 fL (80-100); MEAN CORPUSCULAR HEMOGLOBIN 27.1 pg (25-34); MEAN CORPUSCULAR HGB CONC 33.2 g/dl (32-36); MEAN PLATELET VOLUME 8.6 fL (7.4-10.4); PLATELET COUNT 449 K/uL (130-400); RED CELL DISTRIBUTION WIDTH CV 14.5 % (11.5-14.5); RED CELL DISTRIBUTION WIDTH SD 42.9 fL (36.4-46.3); WHITE BLOOD COUNT 12.82 K/uL (4.8-10.8)
[2017-11-02 10:56] LABS: CALCIUM 8.7 mg/dl (8.5-10.1); CREATININE 1.16 mg/dl (0.60-1.40); POTASSIUM 3.7 mmol/L (3.5-5.1)
[2017-11-02] MEDS: INSULIN GLARGINE SOLOSTAR 100 UNITS/ML 3 ML PEN SC SCH (20:52)
[2017-11-02] MEDS: LORAZEPAM 1 MG TAB PO SCH (22:16)
[2017-11-03] VITALS (16 sets, daily range): BP systolic 123–174; BP diastolic 67–84; PULSE 65–91; TEMP 36.2–36.7; O2SAT 91–97; Ht 182.9 cm; Wt 68.4 kg
[2017-11-03] MEDS: OXYCODONE HCL IR 5 MG TAB (IMMEDIATE RELEASE) PO PRN (00:14)
[2017-11-03] MEDS: IPRATROPIUM BROMIDE NEB SOLN 0.02% 2.5 ML VIAL INH SCH ×4 (01:59→18:57)
[2017-11-03] MEDS: LEVALBUTEROL 0.63MG/3 ML NEB INH SCH ×4 (01:59→18:57)
[2017-11-03] MEDS: LEVOTHYROXINE 100 MCG TAB PO SCH (05:55)
[2017-11-03 06:10] LABS: HEMATOCRIT 36.3 % (42-52); MEAN CELL VOLUME 81.8 fL (80-100); MEAN CORPUSCULAR HGB CONC 33.1 g/dl (32-36); MEAN PLATELET VOLUME 8.5 fL (7.4-10.4); PLATELET COUNT 439 K/uL (130-400); RED CELL DISTRIBUTION WIDTH CV 14.6 % (11.5-14.5); RED CELL DISTRIBUTION WIDTH SD 43.2 fL (36.4-46.3); WHITE BLOOD COUNT 11.71 K/uL (4.8-10.8)
[2017-11-03 06:38] LABS: CALCIUM 8.6 mg/dl (8.5-10.1); CREATININE 1.01 mg/dl (0.60-1.40); POTASSIUM 3.7 mmol/L (3.5-5.1)
[2017-11-03] MEDS: PANTOprazole SOD 40 MG TAB PO SCH ×2 (08:09→21:07)
[2017-11-03] MEDS: VENLAFAXINE HCL XR 75 MG CAPXR PO SCH (08:09)
[2017-11-03] MEDS: METOPROLOL SUCC 50MG EXT REL TAB PO SCH ×2 (08:09→21:07)
[2017-11-03] MEDS: ATORVASTATIN 40 MG TAB PO SCH (08:09)
[2017-11-03] MEDS: FERROUS SULFATE 325 MG TAB PO SCH ×2 (08:09→17:43)
[2017-11-03] MEDS: BUDESONIDE/FORMOTEROL FUMARATE 160/4.5 60 PUFFS/INHALER INH SCH ×2 (08:09→21:06)
[2017-11-03] MEDS: MULTIVITAMIN TAB PO SCH (08:10)
[2017-11-03] MEDS: POLYETHYLENE (MIRALAX) 17 GM PACK PO SCH (08:10)
[2017-11-03] MEDS: INSULIN ASPART 100 UNITS/ML 3 ML PEN SC SCH ×4 (08:16→21:01)
[2017-11-03] MEDS: ASCORBIC ACID 500 MG TAB PO SCH (08:17)
--- NOTE | 2017-11-03 12:54 | Progress Note ---
Subjective Date of Service: Nov 03, 2017. Subjective Pt evaluation today including: conversation w/ patient, physical exam, chart review, lab review Failed voiding trial yesterday - trial of void again today - elevated BG this AM - some fatigue - no pain - moving bowels - tolerating diet - ambulatory 11/03/17 05:51 11/03/17 05:51 Test 11/03/17 05:51 11/03/17 11:50 Red Blood Count 4.44 M/uL (4.7-6.1) Mean Corpuscular Volume 81.8 fL (80-100) Mean Corpuscular Hemoglobin 27.0 pg (25-34) Mean Corpuscular Hemoglobin Concent 33.1 g/dl (32-36) RDW Standard Deviation 43.2 fL (36.4-46.3) RDW Coefficient of Variation 14.6 % (11.5-14.5) Mean Platelet Volume 8.5 fL (7.4-10.4) Anion Gap 4.0 mmol/L (3-11) Est Creatinine Clear Calc Drug Dose 57.2 ml/min Estimated GFR () 83.4 Estimated GFR (Non- 71.9 BUN/Creatinine Ratio 13.3 (10-20) Calcium Level 8.6 mg/dl (8.5-10.1) Bedside Glucose 391 mg/dl (70-99) Problem List Medical Problems: (1) Hyponatremia Status: Acute (2) Medication side effect Status: Acute (3) SOB (shortness of breath) Status: Acute (4) TIA (transient ischemic attack) Status: Acute (5) Troponin level elevated Status: Acute (6) Weakness Status: Acute Review of Systems Constitutional: No see HPI, No fever, No chills, No sweats, No weight loss, No weakness, No fatigue, No problem reported Male : + problem reported Objective Vital Signs Date Time Temp Pulse Resp B/P (MAP) Pulse Ox O2 Delivery O2 Flow Rate FiO2 11/03/17 12:03 36.4 76 17 137/77 (97) 94 Room Air 11/03/17 10:19 36.5 75 18 123/71 (88) 95 Room Air 11/03/17 08:00 92 Room Air 11/03/17 07:43 36.6 79 18 157/84 (108) 92 Room Air 11/03/17 07:27 65 16 91 Room Air 11/03/17 04:50 36.2 73 20 149/72 (97) 96 Room Air 11/03/17 04:00 Room Air 11/03/17 02:00 87 16 96 Room Air 11/03/17 00:00 Room Air 11/02/17 20:18 36.4 84 18 142/67 (92) 96 Room Air 11/02/17 20:00 93 Room Air 11/02/17 19:03 70 16 97 Room Air 11/02/17 16:00 93 Room Air 11/02/17 15:38 36.4 80 20 156/77 (103) 93 Room Air 11/02/17 14:26 76 16 95 Room Air Physical Exam General Appearance: no apparent distress Cardiovascular: no edema Abdomen: non tender, soft Extremities: normal range of motion, non-tender Neurologic/Psychiatric: alert, normal mood/affect, oriented x 3 Laboratory Results Last 24 Hours Test 11/02/17 16:43 11/02/17 20:09 11/03/17 05:51 11/03/17 07:49 Bedside Glucose 254 mg/dl 299 mg/dl 84 mg/dl White Blood Count 11.71 K/uL Red Blood Count 4.44 M/uL Hemoglobin 12.0 g/dL Hematocrit 36.3 % Mean Corpuscular Volume 81.8 fL Mean Corpuscular Hemoglobin 27.0 pg Mean Corpuscular Hemoglobin Concent 33.1 g/dl RDW Standard Deviation 43.2 fL RDW Coefficient of Variation 14.6 % Platelet Count 439 K/uL Mean Platelet Volume 8.5 fL Sodium Level 135 mmol/L Potassium Level 3.7 mmol/L Chloride Level 99 mmol/L Carbon Dioxide Level 32 mmol/L Anion Gap 4.0 mmol/L Blood Urea Nitrogen 13 mg/dl Creatinine 1.01 mg/dl Est Creatinine Clear Calc Drug Dose 57.2 ml/min Estimated GFR () 83.4 Estimated GFR (Non- 71.9 BUN/Creatinine Ratio 13.3 Random Glucose 80 mg/dl Calcium Level 8.6 mg/dl Test 11/03/17 11:50 Bedside Glucose 391 mg/dl Assessment and Plan Large bladder tumor; hematuria POD #2 s/p TURBT - repeat voiding trial today - ambulate - H and H stable - presuming no significant changes, plan to resume plavix tomorrow Continued [facility] stay due to: multiple IV medications needed Discharge planning: uncertain
--- NOTE | 2017-11-03 14:15 | Hospitalist Progress Note ---
Hospitalist Progress Note Date of Service Nov 03, 2017. (Rica De La Paz PA-C) Subjective Pt evaluation today including: conversation w/ patient, conversation w/ family , physical exam Pain: None PO Intake: Good Voiding: goel catheter in place The patient was seen and examined this morning. Pts daughter Rebecca is present at bedside. Pt notes he feels well overall, but overnight goel required being replaced due to bladder scan of 453mL per nursing. A clot was evacuated with goel placement this morning. Discussion was held with Dr. Malone and he is agreeable to another void trial today. Pt is agreeable to this and understands if he is not able to urinate, the goel will need to be replaced and kept there for several days and pulled during an outpatinet visit next week. Pt is hopeful to be going home sometime soon. ROS: Denies wright, chest pain, sob, abd pain, n/v/d/c. 6 point ROS reviewed and otherwise negative. (Rica De La Paz PA-C) Objective Vital Signs Date Time Temp Pulse Resp B/P (MAP) Pulse Ox O2 Delivery O2 Flow Rate FiO2 11/03/17 12:03 36.4 76 17 137/77 (97) 94 Room Air 11/03/17 11:00 94 Room Air 11/03/17 10:19 36.5 75 18 123/71 (88) 95 Room Air 11/03/17 08:00 92 Room Air 11/03/17 07:43 36.6 79 18 157/84 (108) 92 Room Air 11/03/17 07:27 65 16 91 Room Air 11/03/17 04:50 36.2 73 20 149/72 (97) 96 Room Air 11/03/17 04:00 Room Air 11/03/17 02:00 87 16 96 Room Air 11/03/17 00:00 Room Air 11/02/17 20:18 36.4 84 18 142/67 (92) 96 Room Air 11/02/17 20:00 93 Room Air 11/02/17 19:03 70 16 97 Room Air 11/02/17 16:00 93 Room Air 11/02/17 15:38 36.4 80 20 156/77 (103) 93 Room Air 11/02/17 14:26 76 16 95 Room Air (Rica De La Paz PA-C) Physical Exam General Appearance: WD/WN, no apparent distress Eyes: PERRL, EOMI ENT: hearing grossly normal, pharynx normal Neck: supple, no JVD Respiratory/Chest: no respiratory distress, no accessory muscle use, + pertinent finding (faint crackles in the RLL) Cardiovascular: regular rate, rhythm, no murmur Abdomen: normal bowel sounds, non tender, soft, + pertinent finding (goel catheter in place draining dark yellow urine) Extremities: non-tender, no pedal edema, no calf tenderness Neurologic/Psychiatric: alert, normal mood/affect, oriented x 3 Skin: normal color, warm/dry (Rica De La Paz PA-C) Laboratory Results Last 24 Hours Test 11/02/17 16:43 11/02/17 20:09 11/03/17 05:51 11/03/17 07:49 Bedside Glucose 254 mg/dl 299 mg/dl 84 mg/dl White Blood Count 11.71 K/uL Red Blood Count 4.44 M/uL Hemoglobin 12.0 g/dL Hematocrit 36.3 % Mean Corpuscular Volume 81.8 fL Mean Corpuscular Hemoglobin 27.0 pg Mean Corpuscular Hemoglobin Concent 33.1 g/dl RDW Standard Deviation 43.2 fL RDW Coefficient of Variation 14.6 % Platelet Count 439 K/uL Mean Platelet Volume 8.5 fL Sodium Level 135 mmol/L Potassium Level 3.7 mmol/L Chloride Level 99 mmol/L Carbon Dioxide Level 32 mmol/L Anion Gap 4.0 mmol/L Blood Urea Nitrogen 13 mg/dl Creatinine 1.01 mg/dl Est Creatinine Clear Calc Drug Dose 57.2 ml/min Estimated GFR () 83.4 Estimated GFR (Non- 71.9 BUN/Creatinine Ratio 13.3 Random Glucose 80 mg/dl Calcium Level 8.6 mg/dl Test 11/03/17 11:50 Bedside Glucose 391 mg/dl (Rica De La Paz PA-C) Assessment and Plan 77yo male with: Anemia - likely acute blood loss anemia 2nd to bladder mass. - H/H stable, follow cbc - Iron studies with component of iron deficiency - s/p IV Fe administration. - B12/folate wnl. Bladder mass - Goel required being replaced overnight, will do void trial again today. If not successful then pt will need goel replaced and will have it removed next week in urology office. - S/p Cystoscopy 11/01/[address] 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 - Will ask urology to determine oncology consultation and request follow up. - Will need uro follow up in 1-2 weeks post discharge. Hematuria - 2nd bladder mass - Holding chemical DVT proph and plavix. - H&H remains stable. Resume plavix likely tomorrow as urine is darkened yellow today, possibly still with clot in the bladder. Acute diastolic CHF - resolved. - No further lasix; observe; control his BP. PAF - resolved. - Continue tele status. - Cont beta edy. COPD with probable exacerbation - improved. Abnormal chest CT w/ tree-in-bud opacities - Cont bronchodilators. - Finished 5d course of zithromax on 10/31 - Prednisone taper to finish on 11/04. - Faint crackles heard on exam - ordered incentive spirometry and encouraged ambulation. Nursing aware. Metabolic encephalopathy - only; mental status during the day is normal. Supportive care. T2DM - improved. - Did have low glucose this AM likely due to HS novolog - Had one episode of hypoglycemia, now glucoses running in high 100s again. Will increase lantus to 35 U tonight, elevated secondary to prednisone taper. Taper is scheduled to stop tomorrow, so likely can resume outpt regimen of 30 U QHS upon discharge. H/o stroke - noted. - Resume plavix tomorrow morning if urine remains clear x 24 hours. - Daughter notes pt is not on asa. Hyponatremia - resolved. Acute kidney injury - resolved, Cr stable. DVT ppx: Teds, scds, no chemical anticoagulation in light of acute blood loss as above CODE STATUS: Full Code Disposition: From home, lives with , possible dc tomorrow. (Rica De La Paz, TANA) DUTCH Physician Supervision Note: I interviewed and examined the patient. Discussed with Rica De La Paz PAC and agree with findings and plan as documented in the note. Any exceptions or clarifications are listed here: None Patient is in good spirits today accompanied by his daughter at the bedside is having some challenges with urinary retention requiring replacement of Goel catheter in the morning of 11/03/17. After discussion with urology this will be removed and a voiding trial be undertaken. With some mild blush of hematuria holding his Plavix dose will be continued for another day. Patient has no other complaints his breathing is under control without any dyspnea Vital signs are stable, blood glucoses in poor control Cardiac exam is regular lungs are clear suprapubic is mildly tender Patient initially presented with acute blood loss anemia, COPD exacerbation atrial fibrillation and a bladder mass which is supposedly underwent a TURB is doing well and recovering with anticipated discharge in the next 1-2 days Documented By: Sorin Barger (Sorin Barger M.D.)
[2017-11-03] MEDS ORDERED: INSULIN GLARGINE SOLOSTAR 100 UNITS/ML 3 ML PEN SC SCH (21:00)
[2017-11-03] MEDS: LORAZEPAM 1 MG TAB PO SCH (21:08)
[2017-11-03] MEDS: GUAIFENESIN SUGAR FREE 200 MG/10 ML UDC PO PRN (21:08)
[2017-11-04] MEDS: IPRATROPIUM BROMIDE NEB SOLN 0.02% 2.5 ML VIAL INH SCH ×3 (01:45→07:33)
[2017-11-04] MEDS: LEVALBUTEROL 0.63MG/3 ML NEB INH SCH ×3 (01:45→07:33)
[2017-11-04] MEDS: ACETAMINOPHEN 325 MG TAB PO PRN ×2 (01:49→10:50)
[2017-11-04 04:17] VITALS: BP 114/69; PULSE 82; TEMP 36.7; O2SAT 93
[2017-11-04] MEDS: ONDANSETRON INJ 2 MG/ML 2 ML VIAL IV PRN (05:28)
[2017-11-04] MEDS: LEVOTHYROXINE 100 MCG TAB PO SCH (05:33)
[2017-11-04 07:59] VITALS: BP 105/64; PULSE 90; TEMP 36.8; O2SAT 95
[2017-11-04] MEDS: POLYETHYLENE (MIRALAX) 17 GM PACK PO SCH (08:17)
[2017-11-04 08:19] VITALS: BP 111/67; PULSE 90
[2017-11-04] MEDS: BUDESONIDE/FORMOTEROL FUMARATE 160/4.5 60 PUFFS/INHALER INH SCH (08:20)
[2017-11-04] MEDS: MULTIVITAMIN TAB PO SCH (08:21)
[2017-11-04] MEDS: METOPROLOL SUCC 50MG EXT REL TAB PO SCH (08:21)
[2017-11-04] MEDS: PANTOprazole SOD 40 MG TAB PO SCH (08:21)
[2017-11-04] MEDS: VENLAFAXINE HCL XR 75 MG CAPXR PO SCH (08:21)
[2017-11-04] MEDS: FERROUS SULFATE 325 MG TAB PO SCH (08:21)
[2017-11-04] MEDS: ATORVASTATIN 40 MG TAB PO SCH (08:21)
[2017-11-04] MEDS: ASCORBIC ACID 500 MG TAB PO SCH (08:22)
--- NOTE | 2017-11-04 09:33 | Discharge Instructions ---
Discharge Instructions Date of Service Nov 04, 2017. Admission Reason for Admission: General Ill Feeling Discharge Discharge Diagnosis / Problem: Bladder carcinoma Discharge Goals Goal(s): Decrease discomfort, Improve function, Increase independence, Improve disease control Activity Recommendations Activity Limitations: resume your previous activity Lifting Limitations: no more than 25 pounds, gradually increase as tolerated Exercise/Sports Limitations: rest today, gradually increase as tolerated May Resume Sexual Activity: when tolerated Shower/Bathe: no limitations Driving or Machine Use: Do Not Drive . Instructions / Follow-Up Instructions / Follow-Up You were admitted to [facility] with generalized ill feeling and diagnosed with bladder mass which was removed by Dr. Malone and found to be noninvasive papillary urothelial carcinoma, high grade, no invasive carcinoma, muscularis propria tissue present. You will not require chemotherapy or other treatment at this time as the tumor was removed. Monitor for any signs of blood in urine, if this recurs then you should call the urology office or your PCP. Diarrhea will likely resolve with holding off on using miralax x 3 days, and eating low fiber foods. Eat a yogurt once daily for healthy probiotics and to help bowel function. Use immodium as directed over the counter if needed. During your stay here you were treated with supportive care. Medications: Continue taking plavix as directed. Continue taking your medications as above. Appointments: Follow up with your Primary Care Provider within 1 week. Follow up with urology within 1 week. Current Hospital Diet Patient's current hospital diet: Diabetes Type 2 Diet Discharge Diet Recommended Diet: Diabetes Type 2 Diet Procedures Procedures Performed: Transurethral Resection Bladder Tumor (Large); evacuation of clot Pending Studies Studies pending at discharge: no Laboratory Results Hemoglobin A1c Test 08/29/17 06:01 Range/Units Estimated Average Glucose 229 mg/dl Hemoglobin A1c 9.6 H 4.5-5.6 % Medical Emergencies . Who to Call and When: Medical Emergencies: If at any time you feel your situation is an emergency, please call 911 immediately. . Non-Emergent Contact Non-Emergency issues call your: Primary Care Provider, Urologist Call Non-Emergent contact if: you have a fever, you have any medication questions other concerns with your health. Call 911 or go directly to the Emergency Department if you experience any of the following: Chest pain, chest tightness, shortness of breath, abdominal pain , lightheadedness, dizziness, gastrointestinal bleeding, or have any other concerns regarding your health. . Past History Medical & Surgical History: (1) Bladder cancer . "Provider Documentation" section prepared by Pam De La Paz. . VTE Core Measure Inpt VTE Proph given/why not?: Other Anticoagulation
--- NOTE | 2017-11-04 09:45 | Discharge Summary ---
Discharge Summary Date of Service Nov 04, 2017. Discharge Summary Admission Date: Oct 27, 2017 at 08:20 Discharge Date: Nov 04, 2017 Discharge Disposition: Home Principal Diagnosis: Bladder carcinoma, s/p tumor removal. Problems/Secondary Diagnoses: Medical Problems: (1) Anemia (2) Asthma (3) Atrial fibrillation (4) Bladder cancer (5) Diabetes (6) Dyspnea (7) General ill feeling (8) Pneumonia (9) Stroke-like symptoms (10) Tachycardia Surgical Problems: (1) H/O lumbar discectomy Immunizations: Have You Had Influenza Vaccine: Yes Influenza Vaccine Date: Aug 14, 2009 History of Tetanus Vaccine?: Yes Tetanus Immunization Date: March 28, 2005 History of Pneumococcal: Yes Pneumococcal Date: Aug 28, 2009 History of Hepatitis B Vaccine: No Procedures: HEAD WITHOUT CONTRAST (CT) 10/25/17 Findings: The paranasal sinuses and mastoid air cells are clear. The calvarium and skull base are intact. The ventricles and sulci are within normal limits. There is no mass, hematoma, midline shift, or acute infarct. Age-related chronic small vessel change unaltered from the prior study. Impression: No acute intracranial abnormality. Chronic age-related small vessel change. RENAL ULTRASOUND 10/25/2017 IMPRESSION: Normal renal ultrasound. TWO VIEW CHEST 10/25/17 IMPRESSION: 1. Emphysema. 2. There are airspace opacities in the right upper lung which may represent an infectious/inflammatory pneumonitis. Continued radiographic follow-up to resolution is recommended. 3. There is no lobar consolidation or pleural effusion. CT SCAN OF THE ABDOMEN AND PELVIS WITH IV CONTRAST 10/27/17 IMPRESSION: 1. There is a 3.1 cm enhancing mass lesion involving the left posterior wall of the bladder. This should be considered bladder neoplasm until proven otherwise. Follow-up with urology is recommended. 2. There is no evidence of metastatic disease in the abdomen or pelvis. 3. The gallbladder is contracted and grossly unremarkable. 4. Hepatic periportal edema is noted and there is trace pericholecystic fluid as well as trace free fluid in the cul-de-sac. This is of indeterminant significance and may be related to hydration status. Clinical correlation will be required. 5. Tree-in-bud airspace opacities are present both lung bases, likely representing an atypical infectious/inflammatory process. 6. There are bilateral inguinal hernias. The left inguinal hernia contains a small segment of nonobstructed sigmoid colon. 7. Mild colonic diverticulosis without CT evidence of acute diverticulitis. 8. Mild splenomegaly. 9. Additional findings as above. CT ANGIOGRAPHY OF THE CHEST, PULMONARY EMBOLUS PROTOCOL 10/28/17 IMPRESSION: 1. No pulmonary emboli identified although lower lobe segmental and subsegmental pulmonary arteries suboptimally assessed due to respiratory motion artifact. 2. Scattered tree-in-bud nodules throughout the lungs. Similar findings were shown on prior studies and raise the possibility of an atypical mycobacterial infection. Mild subpleural groundglass opacities within the bilateral upper lobes suggest an infectious etiology. 3. Small bilateral pleural effusions with suspected mild interstitial edema. 4. Bronchial wall thickening which was shown on prior exams. 5. Mildly enlarged subcarinal right hilar lymph nodes which are nonspecific. Consultations: Urology Pulmonology Cardiology Gastroenterology Medication Reconciliation New Medications: Metoprolol Succinate (Metoprolol Succinate ER) 50 Mg Tabcr 50 MG PO BID, #60 DOSE 6 Refills Oxycodone HCl (Oxycodone HCl) 5 Mg Tab 10 MG PO Q6 PRN for Pain, #14 TAB Continued Medications: Albuterol Hfa (Ventolin Hfa) 200 Puffs/44615 Mcg Aers 2 PUFFS INH Q4-6HRS PRN for SOB/Wheezing Alprostadil (Vasodilator) (Edex) 20 Mcg Kit 1 DOSE INJ UD Ascorbic Acid (Vitamin C) 500 Mg Tab 500 MG PO DAILY Atorvastatin (Atorvastatin Calcium) 40 Mg Tab 40 MG PO DAILY Budesonide/Formoterol Fumarate (Symbicort 160/4.5 Inhaler) 120 Puffs/ Aero 2 PUFFS INH BID RINSE MOUTH AFTER USE. Buspirone Hcl (Buspirone Hcl) 7.5 Mg Tab 7.5 MG PO TID PRN for Anxiety Clopidogrel Bisulfate (Clopidogrel) 75 Mg Tab 75 MG PO QAM Insulin Aspart (Novolog Flexpen) 100 Units/Ml Inj 1 DOSE SC UD ADMINISTER 10 UNITS BEFORE BREAKFAST, 15 UNITS BEFORE LUNCH AND 20 UNITS BEFORE EVENING MEAL Insulin Glargine (Lantus Solostar) 100 Unit/Ml Inj 30 UNITS SC HS, PEN Levalbuterol Tartrate (Levalbuterol Tartrate Hfa) 45 Mcg/Act Aer 1 PUFF INH Q6H PRN for Shortness of Breath Levothyroxine Sodium (Levothyroxine Sodium) 100 Mcg Tab 100 MCG PO DAILY Multivitamin (Multivitamin) Tab 1 TAB PO DAILY Ondansetron (Ondansetron HCl) 4 Mg Tab 4 MG PO Q8 PRN for Nausea Pantoprazole (Protonix) 40 Mg Tab 40 MG PO DAILY, TAB Polyethylene (Miralax) 17 Gm Pow 17 GM PO DAILY Venlafaxine Hcl (Effexor Extended Rel) 75 Mg Capcr 75 MG PO DAILY TAKE THIS MEDICATION ONCE DAILY WITH FOOD Discontinued Medications: Dicyclomine Hcl (Dicyclomine Hcl) 20 Mg Tab 20 MG PO BID Hydrocodone/Homatropine (Hydromet 5-1.5 mg/5Ml) 5 Ml/Cup Syrp 5 ML PO BID PRN for SORE THROAT Metoclopramide Hcl (Metoclopramide Hcl) 5 Mg Tab 5 MG PO DAILYBB TAKE THIS MEDICATION 30 MINUTES BEFORE BREAKFAST Metoprolol Succinate (Metoprolol Succinate ER) 25 Mg Tabcr 25 MG PO BID Sulfamethoxazole-Trimethoprim (Bactrim Ds 800MG/160MG) 1 Tab Tab 1 TAB PO BID for 16 Days SCRIPT FILLED 10/17/2017, TAKE DIRECTED UNTIL GONE Discharge Exam The patient was seen and examined this morning. Pts family, daughter and are present at bedside. He has complaints of loose bowels and x times this morning since drinking prune juice and having miralax yesterday. He is tired from getting a new roommate overnight which was disturbing to his sleep. He denies any acute abdominal pain and is voiding frequently without difficulty. Urine is clear, no blood clots. Pt is anticipating discharge to home today. Review of Systems: Constitutional: + fatigue, No fever, No chills, No sweats, No weight loss Eyes: No redness, No diplopia ENT: No sore throat, No trouble swallowing Respiratory: No cough, No sputum, No wheezing, No shortness of breath, No dyspnea on exertion Cardiovascular: No chest pain, No edema, No palpitations Abdomen: + diarrhea, No pain, No nausea, No vomiting, No constipation, No GI bleeding Musculoskeletal: No joint pain, No swelling, No calf pain Genitourinary - Male: + urinary frequency, No hematuria, No dysuria, No urinary urgency, No urinary retention Neurologic: No weakness, No numbness/tingling Psychiatric: + anxiety (chronic), No depression symptoms Endocrine: + fatigue Integumentary: No rash, No itch Physical Exam: General Appearance: WD/WN, no apparent distress, + pertinent finding ( anxious and tearful at times) Eyes: PERRL, EOMI ENT: hearing grossly normal, pharynx normal Neck: supple, no JVD Respiratory/Chest: lungs clear, no respiratory distress, no accessory muscle use Cardiovascular: regular rate, rhythm, no murmur, normal peripheral pulses Abdomen / GI: normal bowel sounds, non tender, soft Extremities: normal inspection, no calf tenderness, no pedal edema Neurologic/Psychiatric: alert, oriented x 3 Skin: normal color, warm/dry Hospital Course History of Present Illness THis pt was brought in by his family after feeling feverish, acting confused and having a period of weakness overnight were he slumped to the floor. He has been continually treated for a presumed uti with bactrim for the last 6 days, this stems from some infectious symptoms and persistent hematuria. He and his family has noticed no significant improvement on bactrim. The pt is restless and cannot get comfortable but also cannot localize any focal discomfort. He states his COPD is not worse than usual, he has no dysuria despite the concerns for blood in urine, he has been having difficulty taking care of his glucose with blood sugars as elevated as 350 and has been tired and not eating and drinking. His restlessness reminds me of a medication affect and he is unclear on the schedule of some of his medicines, such as reglan, hydrocodone cough and bentyl. He is occasionally bothered by neuropathic pain of his legs. 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 - H/H stable, follow cbc - Iron studies with component of iron deficiency - s/p IV Fe administration. - B12/folate wnl. Bladder mass - Goel required being replaced overnight, will do void trial again today. If not successful then pt will need goel replaced and will have it removed next week in urology office. - S/p Cystoscopy 11/01/[address] 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 - Will ask urology to determine oncology consultation and request follow up. - Will need uro follow up in 1-2 weeks post discharge. Hematuria - 2nd bladder mass - Holding chemical DVT proph and plavix. - H&H remains stable. Resume plavix likely tomorrow as urine is darkened yellow today, possibly still with clot in the bladder. Acute diastolic CHF - resolved. - No further lasix; observe; control his BP. Paroxysmal Atrial Fibrillation: - Broke on 10/28 - Continue metoprolol 50 mg BID - No anticoagulation at this time in the setting of chronic anemia and recent procedure/hematuria. If/when safe from a bleeding standpoint, would consider anticoagulation for stroke risk reduction - will allow PCP to determine. COPD with probable exacerbation - improved. Abnormal chest CT w/ tree-in-bud opacities - Cont bronchodilators. - Finished 5d course of zithromax on 10/31 - Prednisone taper to finish on 11/04. - Faint crackles heard on exam are improved today. Metabolic encephalopathy - only; mental status during the day is normal. Supportive care. T2DM - improved. - Did have low glucose this AM likely due to HS novolog - Had one episode of hypoglycemia, now glucoses running in high 100s again. Given lantus to 35 U on 11/03, likely elevated secondary to prednisone taper. Taper is scheduled to stop tomorrow, can resume outpt regimen of 30 U QHS upon discharge. H/o stroke - noted. - Resume plavix today since urine remained clear x 24 hours. Hyponatremia - resolved. Acute kidney injury - resolved, Cr stable. DVT ppx: Teds, scds, no chemical anticoagulation in light of acute blood loss as above CODE STATUS: Full Code Disposition: From home, lives with , dc home today. PA Physician Supervision Note: I interviewed and examined the patient. Discussed with Rica De La Paz PAC and agree with findings and plan as documented in the note. Any exceptions or clarifications are listed here: None This patient doing well today has no significant problems with significant hospital stay most related to a bladder carcinoma status post TURB, acute blood loss anemia with transfusion, paroxysmal atrial fibrillation with return to sinus rhythm and no requirement for anticoagulation, and mild exacerbation of COPD. The patient currently stable vital signs his cardiac exam is regular without signs of A. fib his lungs are clear without any wheezes he did require escalation of his beta edy therapy. The patient will be discharged home with attention to his long-standing diabetic treatment and follow-up in close contact with urology to develop a treatment plan for his bladder carcinoma Documented By: Sorin Barger Total Time Spent: Greater than 30 minutes This includes examination of the patient, discharge planning, medication reconciliation, and communication with other providers. Discharge Instructions Please refer to the electronic Patient Visit Report (Discharge Instructions) for additional information. Follow-Up Follow up with your Primary Care Provider within 1 week. Follow up with urology within 1 week. Additional Copies To Maribell Worrell C.R.N.P
[2017-11-04] MEDS: INSULIN ASPART 100 UNITS/ML 3 ML PEN SC SCH (09:46)
[2017-11-04] MEDS ORDERED: TPRSR50 PO (10:52)
[2017-11-04] MEDS ORDERED: RXC5 PO (10:52)
[2017-11-04 11:24] VITALS: BP 111/67; PULSE 90; TEMP 36.8; O2SAT 95
== END 2017-11-04 11:50 | disposition home or self-care (01) | DRG 668 ==
LOC: EDBD 03:29 → C.EDB 03:30 → C.MS2W 08:30 → ENRESERV 09:15 → EDBEDREQSVC 09:16 → EDBEDREQ 09:16 → EDBEDREQSVC 09:27 → EDBEDREQ 09:36 → OBSVTOIN 10-27 08:20 → ENRESERV 10-28 09:38 → C.MED 10-28 10:20
PROVIDERS: ADMIT Internal Medicine; ATTEND Internal Medicine
PROC: 0TBB8ZZ Excision of Bladder, Via Natural or Artificial Opening Endoscopic (ICD-10-PCS; principal; 2017-11-01 13:00)
PROC: 0TCB8ZZ Extirpation of Matter from Bladder, Via Natural or Artificial Opening Endoscopic (ICD-10-PCS; principal; 2017-11-01 13:00)
DX: C67.9 Malignant neoplasm of bladder, unspecified (principal); I50.31 Acute diastolic (congestive) heart failure; G93.41 Metabolic encephalopathy; J44.1 Chronic obstructive pulmonary disease with (acute) exacerbation; N17.9 Acute kidney failure, unspecified; D62 Acute posthemorrhagic anemia; N02.8 Recurrent and persistent hematuria with other morphologic changes; E87.1 Hypo-osmolality and hyponatremia; J44.0 Chronic obstructive pulmonary disease with (acute) lower respiratory infection; F05 Delirium due to known physiological condition; R33.9 Retention of urine, unspecified; J20.9 Acute bronchitis, unspecified; E86.0 Dehydration; R91.8 Other nonspecific abnormal finding of lung field; D50.9 Iron deficiency anemia, unspecified; R59.0 Localized enlarged lymph nodes; M25.50 Pain in unspecified joint; I48.0 Paroxysmal atrial fibrillation; E11.649 Type 2 diabetes mellitus with hypoglycemia without coma; E11.65 Type 2 diabetes mellitus with hyperglycemia; T38.0X5A Adverse effect of glucocorticoids and synthetic analogues, initial encounter; E11.42 Type 2 diabetes mellitus with diabetic polyneuropathy; I10 Essential (primary) hypertension; E78.00 Pure hypercholesterolemia, unspecified; I34.0 Nonrheumatic mitral (valve) insufficiency; K21.9 Gastro-esophageal reflux disease without esophagitis; K58.9 Irritable bowel syndrome, unspecified; N41.9 Inflammatory disease of prostate, unspecified; M19.90 Unspecified osteoarthritis, unspecified site; F32.9 Major depressive disorder, single episode, unspecified; F41.9 Anxiety disorder, unspecified; Z86.73 Personal history of transient ischemic attack (TIA), and cerebral infarction without residual deficits; Z87.09 Personal history of other diseases of the respiratory system; Z87.891 Personal history of nicotine dependence; Z79.51 Long term (current) use of inhaled steroids; Z79.02 Long term (current) use of antithrombotics/antiplatelets; Z79.4 Long term (current) use of insulin; Z79.899 Other long term (current) drug therapy

== ENCOUNTER → 2017-11-08 | Outpatient (CLI) | payer BC, OTHER ==
[~2017-11-08] MED LIST changes: +ASCA500 PO; -ATOR-24 PO; +BUSP1TAB46 PO; -DICY1TAB25 PO; -EFFSR/75 PO; +EFFSR75 PO; +INSDGIPEN SC; -INSU1INJ2 SQ; +LEVA45AE INH; -LEVO100T PO; +LEVO100T7 PO; +LPT40 PO; +MRLP17 PO; +MULT-506 PO; +NVLGI/PEN SC; +ONDA4TAB9 PO; +PANT1TAB3 PO; -PLAVIX75 PO; +PLV75 PO; -PRVHFAIN INH; +RXC5 PO; -SULF800T23 PO; +SYMIN160 INH; +TPRSR50 PO; +VNTHFA/IN INH; +[UNRECOGNIZED DRUG - CODE] INJ
[2017-11-08 12:30] LABS: BASO % 0.6 %; BASO ABS # 0.04 K/uL (0-0.2); EOS % 2.5 %; EOS ABS # 0.17 K/uL (0-0.5); HEMATOCRIT 39.7 % (42-52); IG# 0.05 K/uL (0.00-0.02); LYMPH % 14.4 %; LYMPH ABS # 0.98 K/uL (1.2-3.4); MEAN CELL VOLUME 83.1 fL (80-100); MEAN CORPUSCULAR HEMOGLOBIN 27.2 pg (25-34); MEAN CORPUSCULAR HGB CONC 32.7 g/dl (32-36); MEAN PLATELET VOLUME 8.9 fL (7.4-10.4); MONO % 9.6 %; MONO ABS # 0.65 K/uL (0.11-0.59); NEUT % 72.2 %; PLATELET COUNT 363 K/uL (130-400); RED CELL DISTRIBUTION WIDTH SD 45.7 fL (36.4-46.3); WHITE BLOOD COUNT 6.79 K/uL (4.8-10.8)
[2017-11-08 17:35] LABS: ALBUMIN 3.1 gm/dl (3.4-5.0); ALT/SGPT 26 U/L (12-78); BLOOD UREA NITROGEN 17 mg/dl (7-18); CALCIUM 8.3 mg/dl (8.5-10.1); CARBON DIOXIDE 28 mmol/L (21-32); CREATININE 1.07 mg/dl (0.60-1.40); GLUCOSE 325 mg/dl (70-99); POTASSIUM 4.1 mmol/L (3.5-5.1); SODIUM 134 mmol/L (136-145)
[2017-11-08 17:44] LABS: ALKALINE PHOSPHATASE 99 U/L (45-117); AST/SGOT 17 U/L (15-37); TOTAL PROTEIN 6.3 gm/dl (6.4-8.2)
[2017-11-09 06:21] LABS: HEMOGLOBIN A1C 8.6 % (4.5-5.6)
== END | disposition home or self-care (01) ==
LOC: C.LABPVFM 11:09
PROVIDERS: ATTEND Nurse Practitioner
DX: D50.9 Iron deficiency anemia, unspecified (principal); E11.49 Type 2 diabetes mellitus with other diabetic neurological complication; I10 Essential (primary) hypertension

== ENCOUNTER 2017-11-24 15:58 | Inpatient (IN) | payer BC, OTHER ==
[~2017-11-24] VITALS: Ht 182.9 cm; Wt 70.8 kg
[2017-11-24] MEDS ORDERED: ONDANSETRON INJ 2 MG/ML 2 ML VIAL IV STA (16:26)
[2017-11-24] MEDS ORDERED: MoRPHine SULFATE 4 MG/ML 1 ML CARP\\VIAL IV STA ×2 (16:26→22:22)
[2017-11-24] MEDS ORDERED: ASPIRIN 81 MG CHEW PO STA (16:26)
--- NOTE | 2017-11-24 16:39 | EMERGENCY ROOM VISIT NOTE ---
History Report prepared by Jody: Jimy Villalobos Under the Supervision of: Dr. Thomas Mahajan M.D. First contact with patient: 16:17 Chief Complaint: SHORTNESS OF BREATH Stated Complaint: SOB/BLADDER PAIN/BLEED Nursing Triage Summary: PT STATES SHOB DURING AMBULATION WHILE AT UROLOGIST OFFICE, PT ROMI SHOB AT THIS TIME, STATES HX INTERMITTENT SHOB UNDIAGNOSED BY PCP History of Present Illness The patient is a 77 year old male who presents to the Emergency Room with complaints of intermittent bladder pain from his catheter beginning this morning. The patient states he recently had blood clots removed from his bladder. He reports he had a catheter placed after surgery. The patient notes his pain intensifies when his urine is draining through his catheter. He states he is also experiencing black stools and blood in his catheter. The patient notes his last episode of black stool was this morning. He reports he was short of breath earlier today, but it has resolved. The patient notes he called his surgeon and was told to come to the ED. He denies a history of bladder cancer, kidney problems, loss of consciousness, and blood in stool. Source of History: patient Onset: this morning Position: other (global) Quality: other (bladder pain from his catheter) Timing: intermittent Modifying Factors (Worsening): other (urine draining into catheter) Associated Symptoms: + SOB (mild and resolved), No LOC Note: Associated symptoms: blood in urine, black stools Denies: blood in stool Review of Systems See HPI for pertinent positives and negatives. A total of ten systems were reviewed and were otherwise negative. 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 (11) Stroke-like symptoms (12) Tachycardia Surgical Problems: (1) H/O lumbar discectomy Family History Cancer Diabetes mellitus Heart disease Hypertension Lung disease Social History Smoking Status: Former Smoker Alcohol Use: none Drug Use: none Marital Status: Housing Status: lives with family Occupation Status: retired Current/Historical Medications Scheduled Alprostadil (Vasodilator) (Edex), 1 DOSE INJ UD Atorvastatin (Lipitor), 40 MG PO DAILY Budesonide/Formoterol Fumarate (Symbicort 160/4.5 Inhaler), 2 PUFFS INH BID Clopidogrel Bisulfate (Clopidogrel), 75 MG PO QAM Insulin Aspart (Novolog Flexpen), 1 DOSE SC UD Insulin Glargine (Lantus Solostar), 30 UNITS SC HS Levothyroxine Sodium (Levothyroxine Sodium), 100 MCG PO DAILY Metoprolol Succinate (Metoprolol Succinate ER), 50 MG PO BID Multivitamin (Multivitamin), 1 TAB PO DAILY Pantoprazole (Protonix), 40 MG PO DAILY Polyethylene (Miralax), 17 GM PO DAILY Sulfa/Trimethoprim (Bactrim Ds 800MG/160MG), 1 TAB PO BID Venlafaxine Hcl (Effexor Extended Rel), 75 MG PO DAILY Scheduled PRN Albuterol Hfa (Ventolin Hfa), 2 PUFFS INH Q4-6HRS PRN for SOB/Wheezing Buspirone Hcl (Buspirone Hcl), 7.5 MG PO TID PRN for Anxiety Levalbuterol Tartrate (Levalbuterol Tartrate Hfa), 1 PUFF INH Q6H PRN for Shortness of Breath Ondansetron (Ondansetron HCl), 4 MG PO Q8 PRN for Nausea Allergies Coded Allergies: Levofloxacin (Verified Adverse Reaction, Unknown, fidgety and anxiety, ) Physical Exam Vital Signs Date Time Temp Pulse Resp B/P (MAP) Pulse Ox O2 Delivery O2 Flow Rate FiO2 11/24/17 23:06 101 20 115/59 93 11/24/17 23:01 147/95 11/24/17 22:36 92 94 11/24/17 22:31 160/90 11/24/17 22:06 93 95 11/24/17 22:01 157/90 11/24/17 21:46 109/84 11/24/17 21:06 93 23 11/24/17 21:01 164/84 11/24/17 20:58 88 27 94 11/24/17 20:31 111/71 11/24/17 20:30 79 11/24/17 20:28 79 17 95 11/24/17 20:01 140/88 11/24/17 19:58 81 21 93 11/24/17 19:42 151/83 11/24/17 19:41 78 16 151/83 97 Room Air 11/24/17 19:28 76 15 93 11/24/17 18:58 77 19 91 11/24/17 18:28 80 17 91 11/24/17 18:17 79 16 117/86 92 Room Air 11/24/17 18:16 117/68 11/24/17 17:28 84 20 93 11/24/17 17:09 95 Room Air 11/24/17 16:58 84 22 91 11/24/17 16:44 94 Room Air 11/24/17 16:28 106 18 11/24/17 16:10 87 11/24/17 16:09 94 Room Air 11/24/17 16:05 166/86 11/24/17 16:04 36.7 92 17 166/86 94 Room Air Physical Exam Physical Exam GENERAL: He is oriented to person, place, and time. He appears well-developed and well-nourished. He does not appear distressed. ____ HENT: Exam performed. Head: Normocephalic and atraumatic. Right Ear: External ear normal. No mastoid tenderness. Left Ear: External ear normal. No mastoid tenderness. Mouth/Throat: The oropharynx is clear and moist. No trismus in the jaw. No dental abscesses or uvula swelling. No oropharyngeal exudate or tonsillar abscesses. ____ EYES: Conjunctivae and EOM are normal. Pupils are equal, round, and reactive to light. Right eye exhibits no discharge. Left eye exhibits no discharge. No scleral icterus. ____ NECK: Normal range of motion. Neck supple. No JVD present. No spinous process tenderness present. No carotid bruit present. No rigidity. No tracheal deviation and normal range of motion present. No Brudzinski's sign and no Kernig 's sign noted. ____ CV: Normal rate, regular rhythm, normal heart sounds and intact distal pulses. There is no peripheral edema. Palpable radial pulses bue. ____ PULM/CHEST: Effort normal and breath sounds normal. No respiratory distress. No stridor. He has no wheezes. He has no rales. Chest Wall: He exhibits no tenderness. ____ ABD: The abdomen is soft. Bowel sounds are normal. He has no distension. No mass is present. There is no tenderness. There is no rebound, no guarding, no Gill's sign and no tenderness at McBurney's point. Rovsig negative : Urinary catheter in place with dry blood surrounding the meatus. ___ RECTAL: No hemorrhoids or fissures. Hemoccult negative. No bright read blood per rectum. ____ MUSC/SKEL: Normal range of motion. There is no peripheral edema, tenderness or deformity. LYMPH: No cervical adenopathy. ____ NEURO: He is alert and oriented to person, place, and time. He has normal strength. No cranial nerve deficit or sensory deficit. Coordination and gait normal. GCS eye subscore is 4. GCS verbal subscore is 5. GCS motor subscore is 6. cerebellar tests wnl. ____ SKIN: Skin is warm, dry, and pale. He is not diaphoretic. ____ PSYCH: He has a normal mood and affect. His behavior is normal. Judgment and thought content normal. ____ Medical Decision & Procedures ER Provider Diagnostic Interpretation: Radiology results as stated below per my review and radiologist interpretation: (CHEST FOR PE) ANGIO WITH HISTORY: 77 years-old Male presents with acute shortness of breath TECHNIQUE: Multiple CTA images of the chest were obtained after the intravenous administration of 93 ml Optiray 320. Coronal and sagittal MIPS were obtained from the axial data set and were submitted for review. A dose lowering technique was utilized adhering to the principles of ALARA. COMPARISON: CTA of the chest 10/28/2017. FINDINGS: CTA: Heart is normal in size without pericardial effusion. Coronary arterial calcifications are present. There is moderate atherosclerosis of the aorta. The imaged great vessels appear patent. The left subclavian artery is suboptimally visualized secondary to streak artifact from contrast bolus within the left subclavian vein. The remaining imaged great vessels are unremarkable and appear patent. There is no aortic aneurysm or dissection identified. The pulmonary arterial tree is opacified to level of the segmental branches. No focal filling defects are identified suggest pulmonary thromboembolic disease. The upper lobe segmental branches are not well opacified. Multiple opacified collateral venous vessels are seen within the left upper chest wall. High-grade narrowing without focal filling defect noted within the left subclavian vein on image 288 series 4 without definite filling defects identified. CT CHEST: No definite thyroid nodule. No pathologically enlarged lymph nodes by CT size criteria. There is no pneumothorax or pleural effusion. Multi segmental multilobar distribution of tree-in-bud micronodules are again seen with areas of multifocal bronchial wall thickening and mild mucous plugging. These findings have not significantly changed from the comparison study dated 10/28/2017. Respiratory motion limits evaluation of the lung bases. There is resolution of the previously described small bilateral pleural effusions and suggested mild interstitial pulmonary edema. Solid subpleural 6 mm pulmonary nodule of the right lower lobe as seen on image 133 series 4 which is not definitively seen on the comparison study. 4 mm solid nodule of the left lower lobe as seen on image 107 series 4 which appears unchanged. The central airways appear patent. No lobar airspace consolidations identified. No acute amount the of the imaged upper abdomen identified. 1.8 cm low attenuating lesion of the superior pole left kidney suggests renal cyst. The soft tissues are unremarkable. The bones appear intact. Multilevel degenerative changes of the spine. IMPRESSION: 1. No acute aortic pathology or evidence of pulmonary thromboembolic disease. 2. Redemonstration of multisegmental multilobar distribution of tree-in-bud micronodules with areas of multifocal bronchial wall thickening and mild mucous plugging again seen suggesting infectious bronchiolitis with bronchitis. New 6 mm pulmonary nodule of the right lower lobe as above. 3. 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 The above report was generated using voice recognition software. It may contain grammatical, syntax or spelling errors. Electronically signed by: Cosme Griffith M.D. 11/24/2017 6:25 PM Dictated Date/Time: 11/24/2017 6:16 PM SINGLE VIEW CHEST CLINICAL HISTORY: Atypical chest pain. FINDINGS: 2 AP, portable, upright chest radiographs our compared to study dated 10/25/2017 and correlated with chest CT dated 10/28/2017. The cardiomediastinal silhouette is unremarkable. There is atherosclerotic calcification of the thoracic ureter. Emphysema with chronic interstitial thickening and nodularity is similar to previous. No airspace consolidation or large pleural effusion is identified. No pneumothorax is seen. The skeletal structures are osteopenic. The bony thorax is grossly intact. IMPRESSION: Emphysematous change with no acute cardiopulmonary abnormality. Electronically signed by: Vega Johnston M.D. 11/24/2017 4:50 PM Dictated Date/Time: 11/24/2017 4:[address] SCAN OF THE ABDOMEN AND PELVIS WITH IV CONTRAST CLINICAL HISTORY: Postoperative abdominal pain. COMPARISON STUDY: Abdominal CT dated 10/27/2017. TECHNIQUE: Following the IV administration of 116 cc of Optiray 320, CT scan of the abdomen and pelvis is performed from the lung bases to the proximal femora. Images are reviewed in the axial, sagittal, and coronal planes. IV contrast was administered without complication. A dose lowering technique was utilized adhering to the principles of ALARA. The examination is degraded by motion artifact. CT DOSE: 568.83 mGy.cm FINDINGS: Lung bases: The heart is normal in size and without pericardial effusion. Emphysema is suspected. No lobar consolidation or pleural effusion is identified. Extensive tree-in-bud airspace opacities are present both lung bases. There is a tiny hiatal hernia. Circumferential wall thickening is noted in the distal esophagus. Liver: The contrast-enhanced liver is normal in size, contour, and attenuation. There is no intrahepatic biliary ductal dilatation. The hepatic veins and portal veins are patent. A 12 mm cyst is noted in the left hepatic lobe. Gallbladder: Unremarkable. Spleen: Normal in size and attenuation. Pancreas: Atrophic and grossly unremarkable. Adrenal glands: Unremarkable. Kidneys: The contrast enhanced kidneys demonstrate mild cortical atrophy and are without hydronephrosis. The kidneys enhance symmetrically. A 2.0 cm cyst is present in the left upper pole. Additional subcentimeter cortical hypodensities also likely represent cysts but are too small for definitive characterization. Abdominal vasculature: The abdominal aorta is normal in course and caliber noting moderate to advanced atherosclerotic calcification. Bowel: There is mild colonic diverticulosis without CT evidence of acute diverticulitis. No bowel obstruction is seen. The appendix is normal in appearance. Peritoneum: There is no intraperitoneal free air. There is trace free fluid in the pelvis. There is a small fat-containing umbilical hernia. Lymphadenopathy: None. Pelvic viscera: The prostate gland is enlarged and heterogeneous noting median lobe hypertrophy. The bladder is partially decompressed around a Mondragon catheter. Contrast fills the bladder lumen and there are numerous foci of intraluminal gas. The bladder mass lesion seen on 10/19/2017 is no longer clearly visualized. Intraluminal debris is suggested. There are bilateral fat-containing inguinal hernias. Skeletal structures: The skeletal structures are osteopenic. Moderate to advanced lumbosacral spondylosis is observed. 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 No lytic or blastic lesions are seen. IMPRESSION: 1. There are no acute infectious or inflammatory findings in the abdomen or pelvis. 2. The bladder is partially decompressed around a Mondragon catheter and there are foci of intraluminal gas, likely related to recent instrumentation. The bladder mass lesion seen on 10/27/2017 is no longer identified. Intraluminal debris may represent blood clots. Correlation with clinical findings and the patient's surgical history will be required. 3. There is no evidence of metastatic disease in the abdomen or pelvis. 4. Tree-in-bud airspace opacities are again seen at both lung bases, likely representing an atypical infectious/inflammatory process. This is likely chronic. 5. Circumferential wall thickening is suggested in the distal esophagus. Correlate clinically for evidence of esophagitis. 6. Additional findings as above. Electronically signed by: Vega Johnston M.D. 11/24/2017 6:21 PM Dictated Date/Time: 11/24/2017 6:12 PM Laboratory Results 11/24/17 16:57 Red Blood Count 5.01, Mean Corpuscular Volume 83.0, Mean Corpuscular Hemoglobin 27.5, Mean Corpuscular Hemoglobin Concent 33.2, Mean Platelet Volume 8.9, Neutrophils (%) (Auto) 71.4, Lymphocytes (%) (Auto) 12.6, Monocytes (%) (Auto) 12.7, Eosinophils (%) (Auto) 2.7, Basophils (%) (Auto) 0.4, Neutrophils # (Auto ) 5.91, Lymphocytes # (Auto) 1.04, Monocytes # (Auto) 1.05, Eosinophils # (Auto ) 0.22, Basophils # (Auto) 0.03 11/24/17 16:57 Test 11/24/17 16:57 11/24/17 17:10 11/24/17 18:20 11/24/17 19:00 White Blood Count 8.27 K/uL (4.8-10.8) Red Blood Count 5.01 M/uL (4.7-6.1) Hemoglobin 13.8 g/dL (14.0-18.0) Hematocrit 41.6 % (42-52) Mean Corpuscular Volume 83.0 fL (80-100) Mean Corpuscular Hemoglobin 27.5 pg (25-34) Mean Corpuscular Hemoglobin Concent 33.2 g/dl (32-36) Platelet Count 343 K/uL (130-400) Mean Platelet Volume 8.9 fL (7.4-10.4) Neutrophils (%) (Auto) 71.4 % Lymphocytes (%) (Auto) 12.6 % Monocytes (%) (Auto) 12.7 % Eosinophils (%) (Auto) 2.7 % Basophils (%) (Auto) 0.4 % Neutrophils # (Auto) 5.91 K/uL (1.4-6.5) Lymphocytes # (Auto) 1.04 K/uL (1.2-3.4) Monocytes # (Auto) 1.05 K/uL (0.11-0.59) Eosinophils # (Auto) 0.22 K/uL (0-0.5) Basophils # (Auto) 0.03 K/uL (0-0.2) RDW Standard Deviation 46.5 fL (36.4-46.3) RDW Coefficient of Variation 15.2 % (11.5-14.5) Immature Granulocyte % (Auto) 0.2 % Immature Granulocyte # (Auto) 0.02 K/uL (0.00-0.02) Prothrombin Time 10.7 SECONDS (9.0-12.0) Prothromb Time International Ratio 1.0 (0.9-1.1) Activated Partial Thromboplast Time 26.1 SECONDS (21.0-31.0) Partial Thromboplastin Ratio 1.0 Est Creatinine Clear Calc Drug Dose 51.2 ml/min Estimated GFR () 65.7 Estimated GFR (Non- 56.7 BUN/Creatinine Ratio 12.4 (10-20) Calcium Level 9.4 mg/dl (8.5-10.1) Bedside Hemoglobin 14.3 g/dl (14.0-18.0) Bedside Hematocrit 42 % (42-52) Bedside Sodium 139 mEq/L (135-144) Bedside Potassium 4.1 mEq/L (3.3-5.0) Bedside Chloride 98 mEq/L (101-112) Bedside Total CO2 28 mEq/l (24-31) Anion Gap 18.0 mmol/L (16-25) Bedside Blood Urea Nitrogen 15 mg/dl (7-18) Bedside Creatinine 1.2 mg/dl (0.6-1.3) Bedside Glucose (other) 80 mg/dl (70-99) Bedside Ionized Calcium (Helen) 1.19 mmol/l (1.12-1.32) Urine Color RED Urine Appearance TURBID (CLEAR) Urine pH (4.5-7.5) Urine Specific Burley 1.033 (1.000-1.030) Urine Protein (NEG) Urine Glucose (UA) (NEG) Urine Ketones (NEG) Urine Occult Blood (NEG) Urine Nitrite (NEG) Urine Bilirubin (NEG) Urine Urobilinogen (NEG) Urine Leukocyte Esterase (NEG) Urine RBC >30 /hpf (0-4) Urine WBC >30 /hpf (0-5) Urine Epithelial Cells 0-5 /lpf (0-5) Urine Bacteria NEG (NEG) Urine Hyaline Casts 0 /lpf (0-5) Troponin I < 0.015 ng/ml (0-0.045) Laboratory results reviewed by me Medications Administered Medications (Trade) Dose Ordered Sig/Rose Mary Route Start Time Stop Time Status Last Admin Dose Admin Morphine Sulfate (MoRPHine SULFATE INJ) 4 mg NOW STAT IV 11/24/17 16:26 11/24/17 16:31 DC 11/24/17 16:44 4 MG Ondansetron HCl (Zofran Inj) 4 mg NOW STAT IV 11/24/17 16:26 11/24/17 16:31 DC 11/24/17 16:44 4 MG Aspirin (Aspirin Chew) 324 mg NOW STAT PO 11/24/17 16:26 11/24/17 16:31 DC 11/24/17 16:44 324 MG Diazepam (Valium Tab) 5 mg NOW STAT PO 11/24/17 17:09 11/24/17 17:10 DC 11/24/17 17:33 5 MG Morphine Sulfate (MoRPHine SULFATE INJ) 4 mg NOW STAT IV 11/24/17 22:22 11/24/17 22:23 DC 11/24/17 22:27 4 MG Ceftriaxone Sodium (Rocephin Inj) 1 gm NOW STAT IV 11/24/17 22:29 11/24/17 22:30 DC 11/24/17 23:20 1 GM Oxybutynin Chloride (Ditropan Tab) 5 mg NOW STAT PO 11/24/17 22:52 11/24/17 22:53 DC 11/24/17 23:16 5 MG ECG Indication: SOB/dyspnea Rate (beats per minute): 88 Rhythm: normal sinus Findings: no acute ischemic change, no ectopy, other (TN, QRS, QTc are all within normal limits, no ST depression or elevation, Baseline artifact) Change: Patient's electrocardiogram was interpreted by me. ED Course 162: The patient was evaluated in room C08. A complete history and physical exam was performed. 1626: Ordered Aspirin 324mg PO, Ondansetron HCl 4mg IV, Morphine Sulfate 4 mg IV 1709: Patient continuing to have pain so Ordered Diazepam 5mg PO 1848: I reevaluated the patient. A repeat abdominal exam was within normal limits. He is resting comfortably and feels better after receiving Valium. CT and labs within normal limits His troponin will be repeated, and if it is negative, the patient will most likely be discharged. 3: I discussed the patient's case with the on-call urologist for Dr. Malone. The doctor agrees with the treatment plan and following up with an outpatient. 3: I discussed the patient's case with Dr. Rodriguez, Family Medicine. She states the patient has had problems with overusage of benzodiazepines, and he falls with drowsy medication. She reports the patient should follow-up with his PCP for pain management. Due to this conversation, I will not be discharging the patient with Valium. He will be discharge with an antibiotic for a possible UTI. 2030: I reevaluated the patient. Patient is resting comfortably. Repeat troponin within normal limits. 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 3: When the patient was going to be discharged, He was found to be having slight blood from his urethra meatus, and his catheter is still in place. The catheter was able to be flushed and drained properly by nursing. The patient and family do not feel comfortable going home given his pain and bleeding. He will be admitted to medicine for pain control and an evaluation by urology. 2215: I discussed the patient's case with [facility] Hospitalist. The patient will be evaluated for further pain management and care. 2222: Ordered Morphine Sulfate 4mg IV 2229: Ordered Ceftriaxone Sodium 1gm IV Medical Decision 1709: Patient continuing to have pain so Ordered Diazepam 5mg PO 1847: I reevaluated the patient. A repeat abdominal exam was within normal limits. He is resting comfortably and feels better after receiving Valium. CT and labs within normal limits His troponin will be repeated, and if it is negative, the patient will most likely be discharged. 1942: I discussed the patient's case with the on-call urologist for Dr. Malone. The doctor agrees with the treatment plan and following up with an outpatient. 2022: I discussed the patient's case with Dr. Rodriguez [facility]. She states the patient has had problems with overusage of benzodiazepines, and he falls with drowsy medication. She reports the patient should follow-up with his PCP for pain management. Due to this conversation, I will not be discharging the patient with Valium. He will be discharge with an antibiotic for a possible UTI. 2030: I reevaluated the patient. Patient is resting comfortably. Repeat troponin within normal limits. 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 2202: When the patient was going to be discharged, He was found to be having slight blood from his urethra meatus, and his catheter is still in place. The catheter was able to be flushed and drained properly by nursing. The patient and family do not feel comfortable going home given his pain and bleeding. He will be admitted to medicine for pain control and an evaluation by urology. 2214: I discussed the patient's case with [facility] Hospitalist. The patient will be evaluated for further pain management and care. Medication Reconcilliation Current Medication List: was not reviewed Blood Pressure Screening Patient's blood pressure: Elevated blood pressure Blood pressure disposition: Elevated BP felt to be situational Consults Time Called: 1936 Consulting Physician: on-call urologist for Dr. Malone Returned Call: 1942 I discussed the patient's case with the on-call urologist for Dr. Malone. The doctor agrees with the treatment plan and following up with an outpatient. Additional Consults: Time Called: 2016 Consulted Physician: Dr. Rodriguez, Family Medicine Returned Call: 2022 Additional Comments: I discussed the patient's case with Dr. Rodriguez [facility]. She states the patient has had problems with benzodiazepines, and he falls with drowsy medication. She reports the patient should follow-up with his PCP for pain management. Time Called: 2204 Consulted Physician: Dr. Zamudio [facility] Hospitalist Returned Call: 2214 Additional Comments: I discussed the patient's case with Dr. Zamudio [facility] Hospitalist. The patient will be evaluated for further management and care. Impression Primary Impression: Post-operative pain Additional Impressions: UTI (urinary tract infection) Dyspnea Scribe Attestation The scribe's documentation has been prepared under my direction and personally reviewed by me in its entirety. I confirm that the note above accurately reflects all work, treatment, procedures, and medical decision making performed by me. The chart was completed utilizing [employer] Speech voice recognition software. Grammatical errors, random word insertions, pronoun errors, and incomplete sentences are an occasional consequence of this system due to software limitations, ambient noise, and hardware issues. Any formal questions or concerns about the content, text, or information contained within the body of this dictation should be directly addressed to the physician for clarification. Departure Information Dispostion Being Evaluated By Hospitalist Prescriptions Sulfa/Trimethoprim (Bactrim Ds 800MG/160MG) Tab 1 TAB PO BID, #6 TAB Prov: Thomas Mahajan M.D. 11/24/17 Referrals Maribell Worrell, C.R.N.P (PCP) Patient Instructions My [facility] Problem Qualifiers Additional Impressions: UTI (urinary tract infection) Urinary tract infection type: catheter-associated UTI Indwelling urinary catheter type: indwelling urethral catheter Encounter type: initial encounter Qualified Codes: T83.511A - Infection and inflammatory reaction due to indwelling urethral catheter, initial encounter; N39.0 - Urinary tract infection, site not specified Dyspnea Dyspnea type: unspecified Qualified Codes: R06.00 - Dyspnea, unspecified
[2017-11-24] MEDS ORDERED: OPTIRAY 320 IV PRN (16:45)
--- NOTE | 2017-11-24 16:51 | DIAGNOSTIC IMAGING REPORT ---
SINGLE VIEW CHEST CLINICAL HISTORY: Atypical chest pain. FINDINGS: 2 AP, portable, upright chest radiographs our compared to study dated 10/25/2017 and correlated with chest CT dated 10/28/2017. The cardiomediastinal silhouette is unremarkable. There is atherosclerotic calcification of the thoracic ureter. Emphysema with chronic interstitial thickening and nodularity is similar to previous. No airspace consolidation or large pleural effusion is identified. No pneumothorax is seen. The skeletal structures are osteopenic. The bony thorax is grossly intact. IMPRESSION: Emphysematous change with no acute cardiopulmonary abnormality. Electronically signed by: Vega Johnston M.D. 11/24/2017 4:50 PM Dictated Date/Time: 11/24/2017 4:49 PM
[2017-11-24] MEDS ORDERED: DIAZEPAM 5MG TAB PO STA (17:09)
[2017-11-24 17:15] LABS: BASO % 0.4 %; BASO ABS # 0.03 K/uL (0-0.2); EOS % 2.7 %; EOS ABS # 0.22 K/uL (0-0.5); HEMATOCRIT 41.6 % (42-52); HEMOGLOBIN 13.8 g/dL (14.0-18.0); IG# 0.02 K/uL (0.00-0.02); LYMPH % 12.6 %; LYMPH ABS # 1.04 K/uL (1.2-3.4); MEAN CORPUSCULAR HEMOGLOBIN 27.5 pg (25-34); MEAN CORPUSCULAR HGB CONC 33.2 g/dl (32-36); MEAN PLATELET VOLUME 8.9 fL (7.4-10.4); MONO % 12.7 %; MONO ABS # 1.05 K/uL (0.11-0.59); NEUT % 71.4 %; NEUT ABS # 5.91 K/uL (1.4-6.5); PLATELET COUNT 343 K/uL (130-400); RED CELL DISTRIBUTION WIDTH CV 15.2 % (11.5-14.5); RED CELL DISTRIBUTION WIDTH SD 46.5 fL (36.4-46.3); WHITE BLOOD COUNT 8.27 K/uL (4.8-10.8)
[2017-11-24 17:24] LABS: PTT PATIENT 26.1 SECONDS (21.0-31.0)
[2017-11-24 17:37] LABS: BLOOD UREA NITROGEN 15 mg/dl (7-18); CALCIUM 9.4 mg/dl (8.5-10.1); CARBON DIOXIDE 28 mmol/L (21-32); CREATININE 1.23 mg/dl (0.60-1.40); GLUCOSE 76 mg/dl (70-99); SODIUM 137 mmol/L (136-145)
[2017-11-24 17:41] LABS: ISTAT CREATININE 1.2 mg/dl (0.6-1.3); ISTAT IONIZED CALCIUM 1.19 mmol/l (1.12-1.32); ISTAT POTASSIUM 4.1 mEq/L (3.3-5.0)
--- NOTE | 2017-11-24 18:23 | DIAGNOSTIC IMAGING REPORT ---
CT SCAN OF THE ABDOMEN AND PELVIS WITH IV CONTRAST CLINICAL HISTORY: Postoperative abdominal pain. COMPARISON STUDY: Abdominal CT dated 10/27/2017. TECHNIQUE: Following the IV administration of 116 cc of Optiray 320, CT scan of the abdomen and pelvis is performed from the lung bases to the proximal femora. Images are reviewed in the axial, sagittal, and coronal planes. IV contrast was administered without complication. A dose lowering technique was utilized adhering to the principles of ALARA. The examination is degraded by motion artifact. CT DOSE: 568.83 mGy.cm FINDINGS: Lung bases: The heart is normal in size and without pericardial effusion. Emphysema is suspected. No lobar consolidation or pleural effusion is identified. Extensive tree-in-bud airspace opacities are present both lung bases. There is a tiny hiatal hernia. Circumferential wall thickening is noted in the distal esophagus. Liver: The contrast-enhanced liver is normal in size, contour, and attenuation. There is no intrahepatic biliary ductal dilatation. The hepatic veins and portal veins are patent. A 12 mm cyst is noted in the left hepatic lobe. Gallbladder: Unremarkable. Spleen: Normal in size and attenuation. Pancreas: Atrophic and grossly unremarkable. Adrenal glands: Unremarkable. Kidneys: The contrast enhanced kidneys demonstrate mild cortical atrophy and are without hydronephrosis. The kidneys enhance symmetrically. A 2.0 cm cyst is present in the left upper pole. Additional subcentimeter cortical hypodensities also likely represent cysts but are too small for definitive characterization. Abdominal vasculature: The abdominal aorta is normal in course and caliber noting moderate to advanced atherosclerotic calcification. Bowel: There is mild colonic diverticulosis without CT evidence of acute diverticulitis. No bowel obstruction is seen. The appendix is normal in appearance. Peritoneum: There is no intraperitoneal free air. There is trace free fluid in the pelvis. There is a small fat-containing umbilical hernia. Lymphadenopathy: None. Pelvic viscera: The prostate gland is enlarged and heterogeneous noting median lobe hypertrophy. The bladder is partially decompressed around a Mondragon catheter. Contrast fills the bladder lumen and there are numerous foci of intraluminal gas. The bladder mass lesion seen on 10/19/2017 is no longer clearly visualized. Intraluminal debris is suggested. There are bilateral fat-containing inguinal hernias. Skeletal structures: The skeletal structures are osteopenic. Moderate to advanced lumbosacral spondylosis is observed. 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 No lytic or blastic lesions are seen. IMPRESSION: 1. There are no acute infectious or inflammatory findings in the abdomen or pelvis. 2. The bladder is partially decompressed around a Mondragon catheter and there are foci of intraluminal gas, likely related to recent instrumentation. The bladder mass lesion seen on 10/27/2017 is no longer identified. Intraluminal debris may represent blood clots. Correlation with clinical findings and the patient's surgical history will be required. 3. There is no evidence of metastatic disease in the abdomen or pelvis. 4. Tree-in-bud airspace opacities are again seen at both lung bases, likely representing an atypical infectious/inflammatory process. This is likely chronic. 5. Circumferential wall thickening is suggested in the distal esophagus. Correlate clinically for evidence of esophagitis. 6. Additional findings as above. Electronically signed by: Vega Johnston M.D. 11/24/2017 6:21 PM Dictated Date/Time: 11/24/2017 6:12 PM
--- NOTE | 2017-11-24 18:27 | DIAGNOSTIC IMAGING REPORT ---
(CHEST FOR PE) ANGIO WITH HISTORY: 77 years-old Male presents with acute shortness of breath TECHNIQUE: Multiple CTA images of the chest were obtained after the intravenous administration of 93 ml Optiray 320. Coronal and sagittal MIPS were obtained from the axial data set and were submitted for review. A dose lowering technique was utilized adhering to the principles of ALARA. COMPARISON: CTA of the chest 10/28/2017. FINDINGS: CTA: Heart is normal in size without pericardial effusion. Coronary arterial calcifications are present. There is moderate atherosclerosis of the aorta. The imaged great vessels appear patent. The left subclavian artery is suboptimally visualized secondary to streak artifact from contrast bolus within the left subclavian vein. The remaining imaged great vessels are unremarkable and appear patent. There is no aortic aneurysm or dissection identified. The pulmonary arterial tree is opacified to level of the segmental branches. No focal filling defects are identified suggest pulmonary thromboembolic disease. The upper lobe segmental branches are not well opacified. Multiple opacified collateral venous vessels are seen within the left upper chest wall. High-grade narrowing without focal filling defect noted within the left subclavian vein on image 288 series 4 without definite filling defects identified. CT CHEST: No definite thyroid nodule. No pathologically enlarged lymph nodes by CT size criteria. There is no pneumothorax or pleural effusion. Multi segmental multilobar distribution of tree-in-bud micronodules are again seen with areas of multifocal bronchial wall thickening and mild mucous plugging. These findings have not significantly changed from the comparison study dated 10/28/2017. Respiratory motion limits evaluation of the lung bases. There is resolution of the previously described small bilateral pleural effusions and suggested mild interstitial pulmonary edema. Solid subpleural 6 mm pulmonary nodule of the right lower lobe as seen on image 133 series 4 which is not definitively seen on the comparison study. 4 mm solid nodule of the left lower lobe as seen on image 107 series 4 which appears unchanged. The central airways appear patent. No lobar airspace consolidations identified. No acute amount the of the imaged upper abdomen identified. 1.8 cm low attenuating lesion of the superior pole left kidney suggests renal cyst. The soft tissues are unremarkable. The bones appear intact. Multilevel degenerative changes of the spine. IMPRESSION: 1. No acute aortic pathology or evidence of pulmonary thromboembolic disease. 2. Redemonstration of multisegmental multilobar distribution of tree-in-bud micronodules with areas of multifocal bronchial wall thickening and mild mucous plugging again seen suggesting infectious bronchiolitis with bronchitis. New 6 mm pulmonary nodule of the right lower lobe as above. 3. 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 The above report was generated using voice recognition software. It may contain grammatical, syntax or spelling errors. Electronically signed by: Cosme Griffith M.D. 11/24/2017 6:25 PM Dictated Date/Time: 11/24/2017 6:16 PM
[2017-11-24] MEDS ORDERED: SULF800T23 PO (20:30)
[2017-11-24] MEDS ORDERED: CEFTRIAXONE SOD INJ 1 GM ADDVIAL IV STA (22:29)
[2017-11-24] MEDS ORDERED: OXYBUTYNIN CHLORIDE 5 MG TAB PO STA (22:52)
--- NOTE | 2017-11-24 23:17 | History and Physical ---
History & Physical Date & Time of Service: Nov 24, 2017 at 23:17 Chief Complaint: Sob/Bladder Pain/Bleed Primary Care Physician: Maribell Worrell C.R.N.P History of Present Illness Source: patient, family, hospital records This is a 77 yo m with a recent removal of a bladder tumor that presented to us with bladder pain and hematuria. After cystoscopy the patient started to urinate and within the urine there was clots. Patient was seen by urology today and a goel was placed and irrigation of clots was completed. Soon after the procedure the patient developed severe bladder spasms and pain. He was sent to ED for evaluation. The patient is moaning on evaluation and states his pain is in the lower abd region. It is a 10/10 crapping like pain. The goel is draining dark red blood with no visible clots. patient denies any fever, chest pain or SOB. Past Medical/Surgical History Asthma DMII CAD HTN GERD Anxiety hypothyroidism Family History Cancer Diabetes mellitus Heart disease Hypertension Lung disease Social History Smoking Status: Former Smoker Smokeless Tobacco Use: No Alcohol Use: none Drug Use: none Marital Status: Housing status: lives with family Occupational Status: retired Immunizations History of Influenza Vaccine: Yes Influenza Vaccine Date: Aug 14, 2009 History of Tetanus Vaccine?: Yes Tetanus Immunization Date: March 28, 2005 History of Pneumococcal: Yes Pneumococcal Date: Aug 28, 2009 History of Hepatitis B Vaccine: No Multi-Drug Resistant Organisms History of MDRO: No Allergies Coded Allergies: Levofloxacin (Verified Adverse Reaction, Unknown, fidgety and anxiety, ) Home Medications Scheduled Alprostadil (Vasodilator) (Edex), 1 DOSE INJ UD Atorvastatin (Lipitor), 40 MG PO DAILY Budesonide/Formoterol Fumarate (Symbicort 160/4.5 Inhaler), 2 PUFFS INH BID Clopidogrel Bisulfate (Clopidogrel), 75 MG PO QAM Insulin Aspart (Novolog Flexpen), 1 DOSE SC UD Insulin Glargine (Lantus Solostar), 30 UNITS SC HS Levothyroxine Sodium (Levothyroxine Sodium), 100 MCG PO DAILY Metoprolol Succinate (Metoprolol Succinate ER), 50 MG PO BID Multivitamin (Multivitamin), 1 TAB PO DAILY Pantoprazole (Protonix), 40 MG PO DAILY Polyethylene (Miralax), 17 GM PO DAILY Sulfa/Trimethoprim (Bactrim Ds 800MG/160MG), 1 TAB PO BID Venlafaxine Hcl (Effexor Extended Rel), 75 MG PO DAILY Scheduled PRN Albuterol Hfa (Ventolin Hfa), 2 PUFFS INH Q4-6HRS PRN for SOB/Wheezing Buspirone Hcl (Buspirone Hcl), 7.5 MG PO TID PRN for Anxiety Levalbuterol Tartrate (Levalbuterol Tartrate Hfa), 1 PUFF INH Q6H PRN for Shortness of Breath Ondansetron (Ondansetron HCl), 4 MG PO Q8 PRN for Nausea Review of Systems Unable to obtain a meaningful ROS secondary to pain/ distraction Physical Exam Vital Signs Date Time Temp Pulse Resp B/P (MAP) Pulse Ox O2 Delivery O2 Flow Rate FiO2 11/24/17 21:01 164/84 11/24/17 20:58 88 27 94 11/24/17 20:31 111/71 11/24/17 20:30 79 11/24/17 20:28 79 17 95 11/24/17 20:01 140/88 11/24/17 19:58 81 21 93 11/24/17 19:42 151/83 11/24/17 19:41 78 16 151/83 97 Room Air 11/24/17 19:28 76 15 93 11/24/17 18:58 77 19 91 11/24/17 18:28 80 17 91 11/24/17 18:17 79 16 117/86 92 Room Air 11/24/17 18:16 117/68 11/24/17 17:28 84 20 93 11/24/17 17:09 95 Room Air 11/24/17 16:58 84 22 91 11/24/17 16:44 94 Room Air 11/24/17 16:28 106 18 11/24/17 16:10 87 11/24/17 16:09 94 Room Air 11/24/17 16:05 166/86 11/24/17 16:04 36.7 92 17 166/86 94 Room Air General Appearance: + moderate distress Head: normocephalic, atraumatic Eyes: normal inspection ENT: normal ENT inspection Neck: supple Respiratory/Chest: normal breath sounds, no respiratory distress, no accessory muscle use Cardiovascular: no murmur, normal peripheral pulses, + tachycardia Abdomen/GI: normal bowel sounds, non tender, + guarding Genitourinary - Male: + pertinent finding (goel in place) Back: normal inspection, no muscle spasm, normal range of motion Extremities/Musculoskelatal: normal inspection, no calf tenderness, no pedal edema, normal range of motion Neurologic/Psych: alert, oriented x 3 Skin: normal color, warm/dry, no rash Lymphatic: no adenopathy Diagnostics Laboratory Results Results Past 24 Hours Test 11/24/17 16:57 11/24/17 17:10 11/24/17 18:20 11/24/17 19:00 Range/Units White Blood Count 8.27 4.8-10.8 K/uL Red Blood Count 5.01 4.7-6.1 M/uL Hemoglobin 13.8 14.0-18.0 g/dL Hematocrit 41.6 42-52 % Mean Corpuscular Volume 83.0 80-100 fL Mean Corpuscular Hemoglobin 27.5 25-34 pg Mean Corpuscular Hemoglobin Concent 33.2 32-36 g/dl Platelet Count 343 130-400 K/uL Mean Platelet Volume 8.9 7.4-10.4 fL Neutrophils (%) (Auto) 71.4 % Lymphocytes (%) (Auto) 12.6 % Monocytes (%) (Auto) 12.7 % Eosinophils (%) (Auto) 2.7 % Basophils (%) (Auto) 0.4 % Neutrophils # (Auto) 5.91 1.4-6.5 K/uL Lymphocytes # (Auto) 1.04 1.2-3.4 K/uL Monocytes # (Auto) 1.05 0.11-0.59 K/uL Eosinophils # (Auto) 0.22 0-0.5 K/uL Basophils # (Auto) 0.03 0-0.2 K/uL RDW Standard Deviation 46.5 36.4-46.3 fL RDW Coefficient of Variation 15.2 11.5-14.5 % Immature Granulocyte % (Auto) 0.2 % Immature Granulocyte # (Auto) 0.02 0.00-0.02 K/uL Prothrombin Time 10.7 9.0-12.0 SECONDS Prothromb Time International Ratio 1.0 0.9-1.1 Activated Partial Thromboplast Time 26.1 21.0-31.0 SECONDS Partial Thromboplastin Ratio 1.0 Sodium Level 137 136-145 mmol/L Potassium Level 4.0 3.5-5.1 mmol/L Chloride Level 101 98-107 mmol/L Carbon Dioxide Level 28 21-32 mmol/L Anion Gap 7.0 18.0 16-25 mmol/L Blood Urea Nitrogen 15 7-18 mg/dl Creatinine 1.23 0.60-1.40 mg/dl Est Creatinine Clear Calc Drug Dose 51.2 ml/min Estimated GFR () 65.7 Estimated GFR (Non- 56.7 BUN/Creatinine Ratio 12.4 10-20 Random Glucose 76 70-99 mg/dl Calcium Level 9.4 8.5-10.1 mg/dl Troponin I < 0.015 < 0.015 0-0.045 ng/ml Bedside Hemoglobin 14.3 14.0-18.0 g/dl Bedside Hematocrit 42 42-52 % Bedside Sodium 139 135-144 mEq/L Bedside Potassium 4.1 3.3-5.0 mEq/L Bedside Chloride 98 101-112 mEq/L Bedside Total CO2 28 24-31 mEq/l Bedside Blood Urea Nitrogen 15 7-18 mg/dl Bedside Creatinine 1.2 0.6-1.3 mg/dl Bedside Glucose (other) 80 70-99 mg/dl Bedside Ionized Calcium (Helen) 1.19 1.12-1.32 mmol/l Urine Color RED Urine Appearance TURBID CLEAR Urine pH 4.5-7.5 Urine Specific [place] 1.033 1.000-1.030 Urine Protein NEG Urine Glucose (UA) NEG Urine Ketones NEG Urine Occult Blood NEG Urine Nitrite NEG Urine Bilirubin NEG Urine Urobilinogen NEG Urine Leukocyte Esterase NEG Urine RBC >30 0-4 /hpf Urine WBC >30 0-5 /hpf Urine Epithelial Cells 0-5 0-5 /lpf Urine Bacteria NEG NEG Urine Hyaline Casts 0 0-5 /lpf Diagnostic Radiology [~ rep ct add3]] CT SCAN OF THE ABDOMEN AND PELVIS WITH IV CONTRAST CLINICAL HISTORY: Postoperative abdominal pain. COMPARISON STUDY: Abdominal CT dated 10/27/2017. TECHNIQUE: Following the IV administration of 116 cc of Optiray 320, CT scan of the abdomen and pelvis is performed from the lung bases to the proximal femora. Images are reviewed in the axial, sagittal, and coronal planes. IV contrast was administered without complication. A dose lowering technique was utilized adhering to the principles of ALARA. The examination is degraded by motion artifact. CT DOSE: 568.83 mGy.cm FINDINGS: Lung bases: The heart is normal in size and without pericardial effusion. Emphysema is suspected. No lobar consolidation or pleural effusion is identified. Extensive tree-in-bud airspace opacities are present both lung bases. There is a tiny hiatal hernia. Circumferential wall thickening is noted in the distal esophagus. Liver: The contrast-enhanced liver is normal in size, contour, and attenuation. There is no intrahepatic biliary ductal dilatation. The hepatic veins and portal veins are patent. A 12 mm cyst is noted in the left hepatic lobe. Gallbladder: Unremarkable. Spleen: Normal in size and attenuation. Pancreas: Atrophic and grossly unremarkable. Adrenal glands: Unremarkable. Kidneys: The contrast enhanced kidneys demonstrate mild cortical atrophy and are without hydronephrosis. The kidneys enhance symmetrically. A 2.0 cm cyst is present in the left upper pole. Additional subcentimeter cortical hypodensities also likely represent cysts but are too small for definitive characterization. Abdominal vasculature: The abdominal aorta is normal in course and caliber noting moderate to advanced atherosclerotic calcification. Bowel: There is mild colonic diverticulosis without CT evidence of acute diverticulitis. No bowel obstruction is seen. The appendix is normal in appearance. Peritoneum: There is no intraperitoneal free air. There is trace free fluid in the pelvis. There is a small fat-containing umbilical hernia. Lymphadenopathy: None. Pelvic viscera: The prostate gland is enlarged and heterogeneous noting median lobe hypertrophy. The bladder is partially decompressed around a Goel catheter. Contrast fills the bladder lumen and there are numerous foci of intraluminal gas. The bladder mass lesion seen on 10/19/2017 is no longer clearly visualized. Intraluminal debris is suggested. There are bilateral fat-containing inguinal hernias. Skeletal structures: The skeletal structures are osteopenic. Moderate to advanced lumbosacral spondylosis is observed. 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 No lytic or blastic lesions are seen. IMPRESSION: 1. There are no acute infectious or inflammatory findings in the abdomen or pelvis. 2. The bladder is partially decompressed around a Goel catheter and there are foci of intraluminal gas, likely related to recent instrumentation. The bladder mass lesion seen on 10/27/2017 is no longer identified. Intraluminal debris may represent blood clots. Correlation with clinical findings and the patient's surgical history will be required. 3. There is no evidence of metastatic disease in the abdomen or pelvis. 4. Tree-in-bud airspace opacities are again seen at both lung bases, likely representing an atypical infectious/inflammatory process. This is likely chronic. 5. Circumferential wall thickening is suggested in the distal esophagus. Correlate clinically for evidence of esophagitis. 6. Additional findings as above. SINGLE VIEW CHEST CLINICAL HISTORY: Atypical chest pain. FINDINGS: 2 AP, portable, upright chest radiographs our compared to study dated 10/25/2017 and correlated with chest CT dated 10/28/2017. The cardiomediastinal silhouette is unremarkable. There is atherosclerotic calcification of the thoracic ureter. Emphysema with chronic interstitial thickening and nodularity is similar to previous. No airspace consolidation or large pleural effusion is identified. No pneumothorax is seen. The skeletal structures are osteopenic. The bony thorax is grossly intact. IMPRESSION: Emphysematous change with no acute cardiopulmonary abnormality. (CHEST FOR PE) ANGIO WITH HISTORY: 77 years-old Male presents with acute shortness of breath TECHNIQUE: Multiple CTA images of the chest were obtained after the intravenous administration of 93 ml Optiray 320. Coronal and sagittal MIPS were obtained from the axial data set and were submitted for review. A dose lowering technique was utilized adhering to the principles of ALARA. COMPARISON: CTA of the chest 10/28/2017. FINDINGS: CTA: Heart is normal in size without pericardial effusion. Coronary arterial calcifications are present. There is moderate atherosclerosis of the aorta. The imaged great vessels appear patent. The left subclavian artery is suboptimally visualized secondary to streak artifact from contrast bolus within the left subclavian vein. The remaining imaged great vessels are unremarkable and appear patent. There is no aortic aneurysm or dissection identified. The pulmonary arterial tree is opacified to level of the segmental branches. No focal filling defects are identified suggest pulmonary thromboembolic disease. The upper lobe segmental branches are not well opacified. Multiple opacified collateral venous vessels are seen within the left upper chest wall. High-grade narrowing without focal filling defect noted within the left subclavian vein on image 288 series 4 without definite filling defects identified. CT CHEST: No definite thyroid nodule. No pathologically enlarged lymph nodes by CT size criteria. There is no pneumothorax or pleural effusion. Multi segmental multilobar distribution of tree-in-bud micronodules are again seen with areas of multifocal bronchial wall thickening and mild mucous plugging. These findings have not significantly changed from the comparison study dated 10/28/2017. Respiratory motion limits evaluation of the lung bases. There is resolution of the previously described small bilateral pleural effusions and suggested mild interstitial pulmonary edema. Solid subpleural 6 mm pulmonary nodule of the right lower lobe as seen on image 133 series 4 which is not definitively seen on the comparison study. 4 mm solid nodule of the left lower lobe as seen on image 107 series 4 which appears unchanged. The central airways appear patent. No lobar airspace consolidations identified. No acute amount the of the imaged upper abdomen identified. 1.8 cm low attenuating lesion of the superior pole left kidney suggests renal cyst. The soft tissues are unremarkable. The bones appear intact. Multilevel degenerative changes of the spine. IMPRESSION: 1. No acute aortic pathology or evidence of pulmonary thromboembolic disease. 2. Redemonstration of multisegmental multilobar distribution of tree-in-bud micronodules with areas of multifocal bronchial wall thickening and mild mucous plugging again seen suggesting infectious bronchiolitis with bronchitis. New 6 mm pulmonary nodule of the right lower lobe as above. 3. 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 EKG Poor data quality, interpretation may be adversely affected Normal sinus rhythm Nonspecific T wave abnormality When compared with ECG of 28-OCT-2017 09:21, Atrial arrhythmia is no longer present HR 88 Impression Assessment and Plan This is a 77 yo m suffering from hematuria following bladder tumor resection and bladder pain Hematuria with bladder spasms secondary to recent TURBT for bladder tumor - med surg - q6h - Consult urology - irrigation of goel prn for clotting - oxybutynin trial 5 mg - morphine and dilaudid for pain control - per PCP patient tends to abuse benzo and recommended to avoid - cipro 400 gm bid Changes on CT scan calling for possible atypical pna vs chronic changes - patient denies any pulmonary symptoms/ cough/ sputum change, unlikely new infection - will continue to assess for changes New pulmonary nodule on Ct chest - follow up outpt per guidelines DMII lantus 30 units am - insulin ISS Asthma/ emphysema - Levalbuterol prn - continue Symbicort Hypothyroidism - levothyroxine 100 mcg HTN/CAD - plavix held - metoprolol 50 mg bid Anxiety - buspar prn and venlafaxine cont'd Esophagitis - Protonix cont'd FULL CODE Attending addendum: I have physically seen this patient, have supervised the medical residents activities, and agree with the H&P unless as otherwise noted. Assessment and Plan: Hematuria/bladder spasm/recent TURBT for bladder tumor-- Admit to medical surgical floor H&H every 6 hours Continue Goel catheter Morphine IV for pain control, if not effective, then we will use Dilaudid Valium did provide some relief in the ED, but is to be minimized per PCP instructions to ED. IV fluids Serial BMP and magnesium level is Bilateral bronchiolitis with bronchitis-- Noted on CT, however, patient has no symptoms, we'll therefore follow at this time. Asthma/COPD/new pulmonary nodule-- Xopenex nebulizer every 6 hours when necessary Symbicort twice a day Nodule follow-up per guidelines CAD/hypertension-- Hold Plavix Continue metoprolol tartrate 50 mg by mouth twice a day Diabetes mellitus-- will be nothing by mouth other than medications Hold a.m. Lantus [address] units at this time Place on Accu-Cheks before meals and at bedtime with NovoLog coverage per scale Level of Care Med/Surg Advanced Directives Existing Advance Directive: No Existing Living Will: No Existing Power of Director Of Instructional Technology: No Resuscitation Status FULL RESUSCITATION VTE Prophylaxis VTE Risk Assessment Done? Y/N: Yes Risk Level: Moderate Given or contraindicated: SCD's Social Service Consult None Apply, Cancer Patient Under [place] Note Total Time: Critical Care 30 - 74 minutes Additional Copies To Va Rodriguez M.D.
[2017-11-24] MEDS ORDERED: LEValbuterol HFA 15GM INHALER INH PRN (23:30)
[2017-11-24] MEDS ORDERED: ACETAMINOPHEN 325 MG TAB PO PRN (23:30)
[2017-11-24] MEDS ORDERED: ONDANSETRON INJ 2 MG/ML 2 ML VIAL IV PRN (23:30)
[2017-11-24] MEDS ORDERED: ALBUTEROL HFA 8 GM INHALER INH PRN (23:30)
[2017-11-24] MEDS ORDERED: ALUMINUM/MAGNESIUM/SIMETH (MAALOX MAX) 30 ML UDC PO PRN (23:30)
[2017-11-24] MEDS ORDERED: POLYETHYLENE (MIRALAX) 17 GM PACK PO PRN (23:30)
[2017-11-24] MEDS ORDERED: MAGNESIUM HYDROXIDE SUSP 30 ML UDC PO PRN (23:30)
[2017-11-25] VITALS (7 sets, daily range): BP systolic 117–197; BP diastolic 67–100; PULSE 81–94; TEMP 36.5–37.7; O2SAT 94–96; Ht 182.9 cm; Wt 70.8 kg
[2017-11-25] MEDS ORDERED: GLUCAGON FOR INJ 1 MG VIAL SQ PRN (01:00)
[2017-11-25] MEDS ORDERED: DEXTROSE 50% 50 ML SYR IV PRN (01:00)
[2017-11-25] MEDS ORDERED: GLUCOSE 10 TABS/TUBE PO PRN (01:00)
[2017-11-25] MEDS ORDERED: GLUCOSE 40% GEL 15 GM TUBE PO PRN (01:00)
[2017-11-25] MEDS: HYDROmorphone INJ 1 MG/ML SYR IV PRN ×2 (01:01→04:53)
[2017-11-25] MEDS ORDERED: IV FLUIDS COMPLETED PRN (02:00)
[2017-11-25 02:05] LABS: HEMATOCRIT 37.4 % (42-52); HEMOGLOBIN 12.6 g/dL (14.0-18.0)
[2017-11-25] MEDS: CIPROFLOXACIN / D5W 400 MG in PREMIXED IN D5W 200 ML IV SCH ×2 (05:05→18:26)
[2017-11-25] MEDS: LEVOTHYROXINE 100 MCG TAB PO SCH (06:35)
[2017-11-25] MEDS: METOPROLOL SUCC 50MG EXT REL TAB PO SCH ×2 (06:35→20:54)
[2017-11-25 08:05] LABS: HEMATOCRIT 36.8 % (42-52)
[2017-11-25] MEDS: BUDESONIDE/FORMOTEROL FUMARATE 160/4.5 60 PUFFS/INHALER INH SCH ×2 (08:08→20:52)
[2017-11-25] MEDS: OXYBUTYNIN CHLORIDE 5 MG TAB PO SCH ×2 (08:09→20:53)
[2017-11-25] MEDS: MULTIVITAMIN TAB PO SCH (08:09)
[2017-11-25] MEDS: VENLAFAXINE HCL XR 75 MG CAPXR PO SCH (08:09)
[2017-11-25] MEDS: POLYETHYLENE (MIRALAX) 17 GM PACK PO SCH ×2 (08:10→09:00)
[2017-11-25] MEDS: PANTOprazole SOD 40 MG TAB PO SCH (08:10)
[2017-11-25] MEDS: ATORVASTATIN 40 MG TAB PO SCH (08:10)
[2017-11-25] MEDS: MoRPHine SULFATE 4 MG/ML 1 ML CARP\\VIAL IV PRN ×2 (08:28→18:01)
[2017-11-25 08:30] LABS: CALCIUM 9.2 mg/dl (8.5-10.1); CREATININE 1.55 mg/dl (0.60-1.40); POTASSIUM 5.4 mmol/L (3.5-5.1)
[2017-11-25] MEDS ORDERED: CLOPIDOGREL BISULFATE 75 MG TAB PO SCH (09:00)
[2017-11-25] MEDS: INSULIN ASPART 100 UNITS/ML 3 ML PEN SC SCH ×4 (09:08→20:54)
[2017-11-25] MEDS: BELLADONNA/OPIUM SUPP 60 MG SUPP PR PRN ×2 (09:14→18:46)
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
[2017-11-25] MEDS: SODIUM CHLORIDE 0.45% 1000ML 1,000 ML IV SCH (13:03)
[2017-11-25 14:57] LABS: HEMATOCRIT 32.5 % (42-52); HEMOGLOBIN 10.8 g/dL (14.0-18.0)
--- NOTE | 2017-11-25 19:22 | Family Medicine Progress Note ---
Progress Note Date of Service Nov 25, 2017. Assessment and Plan 77y/oM with hx of bladder tumor presented with hematuria and pain following bladder tumor resection. Hematuria with bladder spasms secondary to recent TURBT for bladder tumor - hh q6h - cipro 400 gm bid - oxybutynin 5 mg BID - morphine 4mg Q3H PRN, tramadol and acetaminophen 650mg Q24H for pain - per PCP patient tends to abuse benzo and recommended to avoid - irrigation of goel prn for clotting - IVF NS 75mls/hr - Consult urology - attempted goel irritation this AM which was met with resistance and caused severe bladder spasm - morphine and B&O suppository for pain - wait and see if drains on its own before considering CBI - hold plavix Changes on CT scan calling for possible atypical pna vs chronic changes - patient denies any pulmonary symptoms/ cough/ sputum change, unlikely new infection New pulmonary nodule on Ct chest - follow up outpt per guidelines DMII - lantus 30 units am - insulin ISS Asthma/ emphysema - Continue Levalbuterol prn - continue Symbicort Hypothyroidism - Continue levothyroxine 100 mcg HTN/CAD/HLD - plavix held - metoprolol 50 mg bid - Atorvastatin 40mg daily Anxiety - Continue buspar 7.5 prn and venlafaxine 75 daily Esophagitis - Continue Protonix 40mg daily FULL CODE Resident Physician Supervision Note: I interviewed and examined the patient. Discussed with Dr. Onofre and agree with findings and plan as documented in the note. Any exceptions or clarifications are listed here: None Documented By: Tristan Guillen pain off and on - soemwhat sedated on pain meds at this time d/w urology - feeling is that bladder spasms are secondary to surgery, and that hematuria is not thick enough to be contributing to pain vitals noted fatigued nad bladder pain - appearing better controlled somewhat sedated for now so hesitate to change meds, follow otherwise as above Resident Involvement: Resident Care Provided Care Provided: Adult Hospital Medicine
[2017-11-25 20:23] LABS: BASO % 0.3 %; BASO ABS # 0.02 K/uL (0-0.2); EOS % 3.3 %; EOS ABS # 0.22 K/uL (0-0.5); HEMATOCRIT 32.1 % (42-52); HEMOGLOBIN 10.5 g/dL (14.0-18.0); IG# 0.02 K/uL (0.00-0.02); LYMPH % 13.7 %; LYMPH ABS # 0.91 K/uL (1.2-3.4); MEAN CELL VOLUME 83.6 fL (80-100); MEAN CORPUSCULAR HEMOGLOBIN 27.3 pg (25-34); MEAN CORPUSCULAR HGB CONC 32.7 g/dl (32-36); MEAN PLATELET VOLUME 8.7 fL (7.4-10.4); MONO % 15.4 %; MONO ABS # 1.02 K/uL (0.11-0.59); NEUT ABS # 4.44 K/uL (1.4-6.5); PLATELET COUNT 246 K/uL (130-400); RED CELL DISTRIBUTION WIDTH CV 15.4 % (11.5-14.5); RED CELL DISTRIBUTION WIDTH SD 47.5 fL (36.4-46.3); WHITE BLOOD COUNT 6.63 K/uL (4.8-10.8)
[2017-11-25] MEDS ORDERED: INSULIN GLARGINE SOLOSTAR 100 UNITS/ML 3 ML PEN SC SCH (21:00)
[2017-11-25 23:14] LABS: HEMATOCRIT 34.5 % (42-52); HEMOGLOBIN 11.4 g/dL (14.0-18.0)
[2017-11-26] MEDS: MoRPHine SULFATE 4 MG/ML 1 ML CARP\\VIAL IV PRN ×2 (01:17→04:03)
[2017-11-26] MEDS: TRAMADOL HCL 50 MG TAB PO PRN ×2 (01:47→15:11)
[2017-11-26] MEDS: BELLADONNA/OPIUM SUPP 60 MG SUPP PR PRN (02:43)
[2017-11-26] MEDS: BusPIRone 15 MG TAB PO PRN (03:03)
[2017-11-26] MEDS: SODIUM CHLORIDE 0.45% 1000ML 1,000 ML IV SCH ×2 (04:08→15:12)
[2017-11-26] MEDS: CIPROFLOXACIN / D5W 400 MG in PREMIXED IN D5W 200 ML IV SCH ×2 (05:36→18:07)
[2017-11-26] MEDS: LEVOTHYROXINE 100 MCG TAB PO SCH (05:37)
[2017-11-26 07:10] VITALS: BP 113/74; PULSE 86; TEMP 37; O2SAT 94
[2017-11-26 08:35] LABS: CALCIUM 8.8 mg/dl (8.5-10.1); CREATININE 1.05 mg/dl (0.60-1.40); POTASSIUM 4.3 mmol/L (3.5-5.1)
[2017-11-26] MEDS: OXYBUTYNIN CHLORIDE 5 MG TAB PO SCH ×3 (09:42→21:00)
[2017-11-26] MEDS: BUDESONIDE/FORMOTEROL FUMARATE 160/4.5 60 PUFFS/INHALER INH SCH ×2 (09:42→21:17)
[2017-11-26] MEDS: VENLAFAXINE HCL XR 75 MG CAPXR PO SCH (09:43)
[2017-11-26] MEDS: ATORVASTATIN 40 MG TAB PO SCH (09:43)
[2017-11-26] MEDS: PANTOprazole SOD 40 MG TAB PO SCH (09:43)
[2017-11-26] MEDS: MULTIVITAMIN TAB PO SCH (09:43)
[2017-11-26] MEDS: METOPROLOL SUCC 50MG EXT REL TAB PO SCH ×2 (09:44→21:18)
[2017-11-26] MEDS: POLYETHYLENE (MIRALAX) 17 GM PACK PO SCH (09:44)
[2017-11-26] MEDS: INSULIN ASPART 100 UNITS/ML 3 ML PEN SC SCH ×4 (09:50→21:30)
--- NOTE | 2017-11-26 15:08 | Family Medicine Progress Note ---
Progress Note Date of Service Nov 26, 2017. Subjective Pt evaluation today including: conversation w/ patient, physical exam, chart review, lab review Voiding: goel catheter in place Patient has a Goel catheter in place and reports continual hematuria (maroon colored). He says that he continues to have suprapubic pain. He does state decreased appetite, but reports a tolerating a normal diet. Patient is ambulating normally. Constitutional: No fever, No chills Respiratory: No cough, No sputum, No wheezing Abdomen: + pain, No vomiting, No diarrhea Male : + hematuria Medications Current Inpatient Medications Medications (Trade) Dose Ordered Sig/Rose Mary Route Start Time Stop Time Status Last Admin Dose Admin Ioversol (Optiray 320) 125 ml UD PRN IV 11/24/17 16:45 11/28/17 16:44 Acetaminophen (Tylenol Tab) 650 mg Q4H PRN PO 11/24/17 23:30 12/24/17 23:29 11/25/17 01:34 650 MG Al Hydrox/Mg Hydrox/Simethicone (Maalox Max Susp) 15 ml Q4H PRN PO 11/24/17 23:30 12/24/17 23:29 Magnesium Hydroxide (Milk Of Magnesia Susp) 30 ml Q6H PRN PO 11/24/17 23:30 12/24/17 23:29 Polyethylene (Miralax Powder Packet) 17 gm DAILY PRN PO 11/24/17 23:30 12/24/17 23:29 Ondansetron HCl (Zofran Inj) 4 mg Q6H PRN IV 11/24/17 23:30 12/24/17 23:29 Morphine Sulfate (MoRPHine SULFATE INJ) 4 mg Q3H PRN IV 11/24/17 23:30 12/08/17 23:29 11/26/17 04:03 4 MG Albuterol (Ventolin Hfa Inhaler) 2 puffs QID PRN INH 11/24/17 23:30 12/24/17 23:29 Atorvastatin Calcium (Lipitor Tab) 40 mg DAILY PO 11/25/17 09:00 12/25/17 08:59 11/26/17 09:43 40 MG Budesonide/ Formoterol Fumarate (Symbicort 160/ 4.5 Inh) 2 puffs BID INH 11/25/17 09:00 12/25/17 08:59 11/26/17 09:42 2 PUFFS Levalbuterol (Xopenex Hfa Inhaler) 2 puffs Q6H PRN INH 11/24/17 23:30 12/24/17 23:29 Levothyroxine Sodium (Synthroid Tab) 100 mcg DAILYBB PO 11/25/17 06:00 12/25/17 05:59 11/26/17 05:37 100 MCG Metoprolol Succinate (Toprol Xl Tab) 50 mg BID PO 11/25/17 09:00 12/25/17 08:59 11/26/17 09:44 50 MG Multivitamins (Multivitamin Tab) 1 tab DAILY PO 11/25/17 09:00 12/25/17 08:59 11/26/17 09:43 1 TAB Pantoprazole Sodium (Protonix Tab) 40 mg DAILY PO 11/25/17 09:00 12/25/17 08:59 11/26/17 09:43 40 MG Polyethylene (Miralax Powder Packet) 17 gm DAILY PO 11/25/17 09:00 12/25/17 08:59 11/26/17 09:44 17 GM Venlafaxine HCl (effeXOR EXTENDED REL CAP) 75 mg DAILY PO 11/25/17 09:00 12/25/17 08:59 11/26/17 09:43 75 MG Buspirone HCl (BusPAR TAB) 7.5 mg TID PRN PO 11/24/17 23:30 12/24/17 23:29 11/26/17 03:03 7.5 MG Glucose (Glucose 40% Gel) 15-30 GRAMS 15 GRAMS... UD PRN PO 11/25/17 01:00 12/25/17 00:59 Glucose (Glucose Chew Tab) 4-8 Tablets 4 Tabl... UD PRN PO 11/25/17 01:00 12/25/17 00:59 Dextrose (Dextrose 50% 50ML Syringe) 25-50ML OF 50% DW IV FOR... UD PRN IV 11/25/17 01:00 12/25/17 00:59 Glucagon (Glucagon Inj) 1 mg UD PRN SQ 11/25/17 01:00 12/25/17 00:59 Miscellaneous (Iv Fluids Completed) 1 ea PRN PRN N/A 11/25/17 02:00 11/25/18 01:59 Insulin Aspart (novoLOG ASPART) SLIDING SCALE G... ACHS SC 11/25/17 08:00 12/25/17 07:59 11/26/17 13:29 6 UNITS Ciprofloxacin/ Dextrose 400 mg/ Prmx 200 ml @ 100 mls/hr Q12H IV 11/25/17 06:00 11/27/17 05:59 11/26/17 05:36 100 MLS/HR Oxybutynin Chloride (Ditropan Tab) 5 mg BID PO 11/25/17 09:00 12/25/17 08:59 11/26/17 09:42 5 MG Belladonna/Opium (B & O Adult Supp) 60 mg Q8 PRN [place] 11/25/17 08:45 12/09/17 08:44 11/26/17 02:43 60 MG Tramadol HCl (Ultram Tab) 50 mg Q4H PRN PO 11/25/17 11:15 12/25/17 11:14 11/26/17 15:11 50 MG Sodium Chloride 1,000 ml @ 75 mls/hr [id number] IV 11/25/17 11:15 12/25/17 11:14 11/26/17 15:12 75 MLS/HR Objective Vital Signs Date Time Temp Pulse Resp B/P (MAP) Pulse Ox O2 Delivery O2 Flow Rate FiO2 11/26/17 16:04 36.6 82 16 131/73 (92) 93 Room Air 11/26/17 16:00 94 Room Air 11/26/17 08:10 Room Air 11/26/17 07:10 37.0 86 16 113/74 (87) 94 Room Air 11/25/17 23:55 Room Air 11/25/17 23:09 36.9 84 15 140/71 (94) 94 Room Air 11/25/17 20:51 92 117/67 (84) Physical Exam General Appearance: WD/WN, no apparent distress Respiratory/Chest: chest non-tender, lungs clear, normal breath sounds Cardiovascular: regular rate, rhythm, no murmur Abdomen: normal bowel sounds, non tender, soft Extremities: no pedal edema, no calf tenderness Neurologic/Psychiatric: alert, normal mood/affect, oriented x 3 Skin: normal color, warm/dry, no rash Laboratory Results 11/25/17 19:55 Red Blood Count 3.84, Mean Corpuscular Volume 83.6, Mean Corpuscular Hemoglobin 27.3, Mean Corpuscular Hemoglobin Concent 32.7, Mean Platelet Volume 8.7, Neutrophils (%) (Auto) 67.0, Lymphocytes (%) (Auto) 13.7, Monocytes (%) (Auto) 15.4, Eosinophils (%) (Auto) 3.3, Basophils (%) (Auto) 0.3, Neutrophils # (Auto ) 4.44, Lymphocytes # (Auto) 0.91, Monocytes # (Auto) 1.02, Eosinophils # (Auto ) 0.22, Basophils # (Auto) 0.02 11/26/17 07:51 Test 11/25/17 19:55 11/26/17 07:51 11/26/17 12:16 White Blood Count 6.63 K/uL (4.8-10.8) Red Blood Count 3.84 M/uL (4.7-6.1) Hemoglobin 10.5 g/dL (14.0-18.0) Hematocrit 32.1 % (42-52) Mean Corpuscular Volume 83.6 fL (80-100) Mean Corpuscular Hemoglobin 27.3 pg (25-34) Mean Corpuscular Hemoglobin Concent 32.7 g/dl (32-36) Platelet Count 246 K/uL (130-400) Mean Platelet Volume 8.7 fL (7.4-10.4) Neutrophils (%) (Auto) 67.0 % Lymphocytes (%) (Auto) 13.7 % Monocytes (%) (Auto) 15.4 % Eosinophils (%) (Auto) 3.3 % Basophils (%) (Auto) 0.3 % Neutrophils # (Auto) 4.44 K/uL (1.4-6.5) Lymphocytes # (Auto) 0.91 K/uL (1.2-3.4) Monocytes # (Auto) 1.02 K/uL (0.11-0.59) Eosinophils # (Auto) 0.22 K/uL (0-0.5) Basophils # (Auto) 0.02 K/uL (0-0.2) RDW Standard Deviation 47.5 fL (36.4-46.3) RDW Coefficient of Variation 15.4 % (11.5-14.5) Immature Granulocyte % (Auto) 0.3 % Immature Granulocyte # (Auto) 0.02 K/uL (0.00-0.02) Anion Gap 7.0 mmol/L (3-11) Est Creatinine Clear Calc Drug Dose 59.9 ml/min Estimated GFR () 79.5 Estimated GFR (Non- 68.6 BUN/Creatinine Ratio 17.5 (10-20) Calcium Level 8.8 mg/dl (8.5-10.1) Bedside Glucose 257 mg/dl (70-99) Assessment and Plan 77y/oM with hx of bladder tumor presented with hematuria and pain following bladder tumor resection. 11/26--Hematuria is improving and Hgb has remained stable. Patient no longer needs q 6 h/h. Continue fluids and irrigation of goel. Following recommendations of urology. Patient was alert and oriented x3, but he was unsure of the time of day, thought it was evening the morning. The patient needs to have the blinds open throughout the day. Hematuria with bladder spasms secondary to recent TURBT for bladder tumor - cipro 400 gm bid - oxybutynin 5 mg BID - morphine 4mg Q3H PRN, tramadol and acetaminophen 650mg Q24H for pain - per PCP patient tends to abuse benzo and recommended to avoid - irrigation of goel prn for clotting - IVF NS 75mls/hr - Consult urology - attempted goel irritation this AM which was met with resistance and caused severe bladder spasm - morphine and B&O suppository for pain - wait and see if drains on its own before considering CBI - hold plavix Changes on CT scan calling for possible atypical pna vs chronic changes - patient denies any pulmonary symptoms/ cough/ sputum change, unlikely new infection New pulmonary nodule on Ct chest - follow up outpt per guidelines DMII - lantus 30 units am - insulin ISS Asthma/ emphysema - Continue Levalbuterol prn - continue Symbicort Hypothyroidism - Continue levothyroxine 100 mcg HTN/CAD/HLD - plavix held - metoprolol 50 mg bid - Atorvastatin 40mg daily Anxiety - Continue buspar 7.5 prn and venlafaxine 75 daily Esophagitis - Continue Protonix 40mg daily FULL CODE Resident Involvement: Resident Care Provided Care Provided: [facility] Resident Physician Supervision Note: I interviewed and examined the patient. Discussed with Dr. Quiroz and agree with findings and plan as documented in the note. Any exceptions or clarifications are listed here: None Documented By: Tristan Guillen pain bad urology just increased oxybutinin and added pyridium while i was in the room notes that is the biggest problem vitals noted appearing frustrated more than in severe pain right now bladder pain - increased oxybutynin and added pyridium -tylneol scheudled -tramadol prn moderate pain, morphine prn severe pain -urine bloody but not clotting/thick not appearing to obstruct right now so CBI doesn't appera to be of benefit otherwise as above
--- NOTE | 2017-11-26 15:41 | Progress Note ---
Subjective Date of Service: Nov 26, 2017. Subjective Pt evaluation today including: conversation w/ patient, conversation w/ family Pain: Improved control PO Intake: Good Tolerating catheter. Considerable improvement of spasms. No major incontinence. Urine now light pink and draining well. No clots. Problem List Medical Problems: (1) Abdominal pain, left lower quadrant Status: Acute (2) Altered mental status Status: Acute (3) Bronchitis Status: Acute (4) Constipation Status: Acute (5) Dyspnea Status: Acute (6) Hyponatremia Status: Acute (7) Medication side effect Status: Acute (8) Pneumonia Status: Acute (9) Post-operative pain Status: Acute (10) SOB (shortness of breath) Status: Acute (11) TIA (transient ischemic attack) Status: Acute (12) Troponin level elevated Status: Acute (13) UTI (urinary tract infection) Status: Acute (14) UTI (urinary tract infection) Status: Acute Review of Systems All Other Systems: Reviewed and Negative (All pertinent positives and negatives in HPI) Objective Vital Signs Date Time Temp Pulse Resp B/P (MAP) Pulse Ox O2 Delivery O2 Flow Rate FiO2 11/26/17 08:10 Room Air 11/26/17 07:10 37.0 86 16 113/74 (87) 94 Room Air 11/25/17 23:55 Room Air 11/25/17 23:09 36.9 84 15 140/71 (94) 94 Room Air 11/25/17 20:51 92 117/67 (84) 11/25/17 15:46 36.5 81 18 121/73 (89) 96 Room Air Physical Exam General Appearance: WD/WN, no apparent distress Eyes: normal inspection ENT: normal ENT inspection, hearing grossly normal Neck: supple Respiratory/Chest: no respiratory distress, no accessory muscle use Cardiovascular: regular rate, rhythm Abdomen: non tender, soft, no organomegaly Extremities: normal range of motion, no pedal edema, no calf tenderness 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, no motor/sensory deficits, normal mood/affect Skin: normal color, warm/dry, no rash Lymphatic: no adenopathy Laboratory Results Last 24 Hours Test 11/25/17 16:58 11/25/17 19:55 11/25/17 20:40 11/26/17 07:51 Bedside Glucose 177 mg/dl 237 mg/dl White Blood Count 6.63 K/uL Red Blood Count 3.84 M/uL Hemoglobin 10.5 g/dL Hematocrit 32.1 % Mean Corpuscular Volume 83.6 fL Mean Corpuscular Hemoglobin 27.3 pg Mean Corpuscular Hemoglobin Concent 32.7 g/dl Platelet Count 246 K/uL Mean Platelet Volume 8.7 fL Neutrophils (%) (Auto) 67.0 % Lymphocytes (%) (Auto) 13.7 % Monocytes (%) (Auto) 15.4 % Eosinophils (%) (Auto) 3.3 % Basophils (%) (Auto) 0.3 % Neutrophils # (Auto) 4.44 K/uL Lymphocytes # (Auto) 0.91 K/uL Monocytes # (Auto) 1.02 K/uL Eosinophils # (Auto) 0.22 K/uL Basophils # (Auto) 0.02 K/uL RDW Standard Deviation 47.5 fL RDW Coefficient of Variation 15.4 % Immature Granulocyte % (Auto) 0.3 % Immature Granulocyte # (Auto) 0.02 K/uL Sodium Level 130 mmol/L Potassium Level 4.3 mmol/L Chloride Level 95 mmol/L Carbon Dioxide Level 28 mmol/L Anion Gap 7.0 mmol/L Blood Urea Nitrogen 18 mg/dl Creatinine 1.05 mg/dl Est Creatinine Clear Calc Drug Dose 59.9 ml/min Estimated GFR () 79.5 Estimated GFR (Non- 68.6 BUN/Creatinine Ratio 17.5 Random Glucose 247 mg/dl Calcium Level 8.8 mg/dl Test 11/26/17 08:07 11/26/17 12:16 Bedside Glucose 262 mg/dl 257 mg/dl Assessment and Plan 1 Non-Muscle Invasive Bladder cancer 2. Gross Hematuria 3 Clot Retention 4 Severe spasms Continue drainage and close monitoring with hydration. Discussed management. Will support through acute episode of GH with retention. Urine light pink at this time. No major clot or debris. Will need to transition to anticholenergics and other oral control for spasms. Encouraged patient to ambulate and regain strength. Has not been regularly ambulating and feeling weak. Maintain catheter.
[2017-11-26 16:00] VITALS: O2SAT 94
[2017-11-26 16:04] VITALS: BP 131/73; PULSE 82; TEMP 36.6; O2SAT 93
[2017-11-26] MEDS ORDERED: NURSING VERBAL MED ORDER ONE (17:30)
[2017-11-26] MEDS: PHENAZOPYRIDINE HCL 200 MG TAB PO SCH ×2 (18:32→21:00)
[2017-11-26 21:20] VITALS: BP 148/72; PULSE 82
[2017-11-26] MEDS: INSULIN GLARGINE SOLOSTAR 100 UNITS/ML 3 ML PEN SC SCH (21:31)
[2017-11-26] MEDS: ACETAMINOPHEN 325 MG TAB PO SCH (21:34)
[2017-11-26 23:43] VITALS: BP 117/65; PULSE 74; TEMP 36.8; O2SAT 94
[2017-11-27] MEDS: BELLADONNA/OPIUM SUPP 60 MG SUPP PR PRN (02:33)
[2017-11-27] MEDS: BusPIRone 15 MG TAB PO PRN ×2 (05:50→21:53)
[2017-11-27] MEDS: LEVOTHYROXINE 100 MCG TAB PO SCH (05:50)
[2017-11-27 06:10] LABS: BASO % 0.7 %; BASO ABS # 0.04 K/uL (0-0.2); EOS % 3.3 %; EOS ABS # 0.19 K/uL (0-0.5); HEMOGLOBIN 10.1 g/dL (14.0-18.0); IG# 0.01 K/uL (0.00-0.02); LYMPH % 17.5 %; LYMPH ABS # 1.01 K/uL (1.2-3.4); MEAN CELL VOLUME 83.6 fL (80-100); MEAN CORPUSCULAR HEMOGLOBIN 27.2 pg (25-34); MEAN CORPUSCULAR HGB CONC 32.6 g/dl (32-36); MEAN PLATELET VOLUME 8.5 fL (7.4-10.4); MONO % 16.5 %; MONO ABS # 0.95 K/uL (0.11-0.59); NEUT % 61.8 %; NEUT ABS # 3.56 K/uL (1.4-6.5); PLATELET COUNT 286 K/uL (130-400); RED CELL DISTRIBUTION WIDTH CV 15.1 % (11.5-14.5); RED CELL DISTRIBUTION WIDTH SD 46.2 fL (36.4-46.3); WHITE BLOOD COUNT 5.76 K/uL (4.8-10.8)
[2017-11-27 06:47] LABS: ALBUMIN 3.1 gm/dl (3.4-5.0); CALCIUM 8.9 mg/dl (8.5-10.1); CREATININE 1.19 mg/dl (0.60-1.40); POTASSIUM 3.9 mmol/L (3.5-5.1)
[2017-11-27 06:50] LABS: TOTAL PROTEIN 6.6 gm/dl (6.4-8.2)
[2017-11-27 07:20] VITALS: BP 155/74; PULSE 66; TEMP 36.7; O2SAT 99
[2017-11-27] MEDS: POLYETHYLENE (MIRALAX) 17 GM PACK PO SCH (07:57)
[2017-11-27] MEDS: INSULIN ASPART 100 UNITS/ML 3 ML PEN SC SCH ×4 (08:48→21:01)
[2017-11-27] MEDS: PANTOprazole SOD 40 MG TAB PO SCH (08:51)
[2017-11-27] MEDS: ATORVASTATIN 40 MG TAB PO SCH (08:51)
[2017-11-27] MEDS: PHENAZOPYRIDINE HCL 200 MG TAB PO SCH ×3 (08:53→20:54)
[2017-11-27] MEDS: VENLAFAXINE HCL XR 75 MG CAPXR PO SCH (08:56)
[2017-11-27] MEDS: ACETAMINOPHEN 325 MG TAB PO SCH ×4 (08:56→20:55)
[2017-11-27] MEDS: MULTIVITAMIN TAB PO SCH (08:57)
[2017-11-27] MEDS: OXYBUTYNIN CHLORIDE 5 MG TAB PO SCH ×4 (08:57→20:54)
[2017-11-27] MEDS: METOPROLOL SUCC 50MG EXT REL TAB PO SCH ×2 (08:58→20:54)
[2017-11-27] MEDS: BUDESONIDE/FORMOTEROL FUMARATE 160/4.5 60 PUFFS/INHALER INH SCH ×2 (08:59→20:54)
--- NOTE | 2017-11-27 12:40 | Family Medicine Progress Note ---
Progress Note Date of Service Nov 27, 2017. Subjective Pt evaluation today including: conversation w/ patient, physical exam, chart review, lab review Patient is doing well this morning, although he does remark that he woke up early this morning and became agitated and disoriented. The patient alert and oriented X3. He seems to have good insight and is appropriately responding. The patient continues to report suprapubic cramping, but feels like they are less frequent. Hematuria persist today. Constitutional: No fever, No chills Respiratory: No cough, No sputum, No wheezing Abdomen: No pain, No nausea, No vomiting, No diarrhea Male : + hematuria Medications Current Inpatient Medications Medications (Trade) Dose Ordered Sig/Rose Mary Route Start Time Stop Time Status Last Admin Dose Admin Ioversol (Optiray 320) 125 ml UD PRN IV 11/24/17 16:45 11/28/17 16:44 Al Hydrox/Mg Hydrox/Simethicone (Maalox Max Susp) 15 ml Q4H PRN PO 11/24/17 23:30 12/24/17 23:29 Magnesium Hydroxide (Milk Of Magnesia Susp) 30 ml Q6H PRN PO 11/24/17 23:30 12/24/17 23:29 Polyethylene (Miralax Powder Packet) 17 gm DAILY PRN PO 11/24/17 23:30 12/24/17 23:29 Ondansetron HCl (Zofran Inj) 4 mg Q6H PRN IV 11/24/17 23:30 12/24/17 23:29 Morphine Sulfate (MoRPHine SULFATE INJ) 4 mg Q3H PRN IV 11/24/17 23:30 12/08/17 23:29 11/26/17 04:03 4 MG Albuterol (Ventolin Hfa Inhaler) 2 puffs QID PRN INH 11/24/17 23:30 12/24/17 23:29 Atorvastatin Calcium (Lipitor Tab) 40 mg DAILY PO 11/25/17 09:00 12/25/17 08:59 11/27/17 08:51 40 MG Budesonide/ Formoterol Fumarate (Symbicort 160/ 4.5 Inh) 2 puffs BID INH 11/25/17 09:00 12/25/17 08:59 11/27/17 08:59 2 PUFFS Levalbuterol (Xopenex Hfa Inhaler) 2 puffs Q6H PRN INH 11/24/17 23:30 12/24/17 23:29 Levothyroxine Sodium (Synthroid Tab) 100 mcg DAILYBB PO 11/25/17 06:00 12/25/17 05:59 11/27/17 05:50 100 MCG Metoprolol Succinate (Toprol Xl Tab) 50 mg BID PO 11/25/17 09:00 12/25/17 08:59 11/27/17 08:58 50 MG Multivitamins (Multivitamin Tab) 1 tab DAILY PO 11/25/17 09:00 12/25/17 08:59 11/27/17 08:57 1 TAB Pantoprazole Sodium (Protonix Tab) 40 mg DAILY PO 11/25/17 09:00 12/25/17 08:59 11/27/17 08:51 40 MG Polyethylene (Miralax Powder Packet) 17 gm DAILY PO 11/25/17 09:00 12/25/17 08:59 11/27/17 07:57 17 GM Venlafaxine HCl (effeXOR EXTENDED REL CAP) 75 mg DAILY PO 11/25/17 09:00 12/25/17 08:59 11/27/17 08:56 75 MG Buspirone HCl (BusPAR TAB) 7.5 mg TID PRN PO 11/24/17 23:30 12/24/17 23:29 11/27/17 05:50 7.5 MG Glucose (Glucose 40% Gel) 15-30 GRAMS 15 GRAMS... UD PRN PO 11/25/17 01:00 12/25/17 00:59 Glucose (Glucose Chew Tab) 4-8 Tablets 4 Tabl... UD PRN PO 11/25/17 01:00 12/25/17 00:59 Dextrose (Dextrose 50% 50ML Syringe) 25-50ML OF 50% DW IV FOR... UD PRN IV 11/25/17 01:00 12/25/17 00:59 Glucagon (Glucagon Inj) 1 mg UD PRN SQ 11/25/17 01:00 12/25/17 00:59 Miscellaneous (Iv Fluids Completed) 1 ea PRN PRN N/A 11/25/17 02:00 11/25/18 01:59 Insulin Aspart (novoLOG ASPART) SLIDING SCALE G... ACHS SC 11/25/17 08:00 12/25/17 07:59 11/27/17 08:48 5 UNITS Belladonna/Opium (B & O Adult Supp) 60 mg Q8 PRN PA 11/25/17 08:45 12/09/17 08:44 11/27/17 02:33 60 MG Tramadol HCl (Ultram Tab) 50 mg Q4H PRN PO 11/25/17 11:15 12/25/17 11:14 11/26/17 15:11 50 MG Oxybutynin Chloride (Ditropan Tab) 5 mg TID PO 11/26/17 17:31 12/26/17 17:30 11/27/17 08:57 5 MG Phenazopyridine HCl (Pyridium Tab) 200 mg TID PO 11/26/17 17:32 12/26/17 17:31 11/27/17 08:53 200 MG Insulin Glargine (Lantus Solostar Pen) 20 units HS SC 11/26/17 21:00 12/26/17 20:59 11/26/17 21:31 20 UNITS Acetaminophen (Tylenol Tab) 650 mg QID PO 11/26/17 21:00 12/26/17 20:59 11/27/17 08:56 650 MG Objective Vital Signs Date Time Temp Pulse Resp B/P (MAP) Pulse Ox O2 Delivery O2 Flow Rate FiO2 11/27/17 09:54 Room Air 11/27/17 07:20 36.7 66 16 155/74 (101) 99 Room Air 11/26/17 23:45 Room Air 11/26/17 23:43 36.8 74 18 117/65 (82) 94 Room Air 11/26/17 21:20 82 148/72 (97) 11/26/17 20:00 Room Air 11/26/17 16:04 36.6 82 16 131/73 (92) 93 Room Air 11/26/17 16:00 94 Room Air Physical Exam General Appearance: WD/WN, no apparent distress Respiratory/Chest: chest non-tender, lungs clear, normal breath sounds Cardiovascular: regular rate, rhythm, no edema, no murmur Abdomen: normal bowel sounds, non tender, soft Neurologic/Psychiatric: alert, normal mood/affect, oriented x 3 Skin: normal color, warm/dry, no rash Laboratory Results 11/27/17 05:57 Red Blood Count 3.71, Mean Corpuscular Volume 83.6, Mean Corpuscular Hemoglobin 27.2, Mean Corpuscular Hemoglobin Concent 32.6, Mean Platelet Volume 8.5, Neutrophils (%) (Auto) 61.8, Lymphocytes (%) (Auto) 17.5, Monocytes (%) (Auto) 16.5, Eosinophils (%) (Auto) 3.3, Basophils (%) (Auto) 0.7, Neutrophils # (Auto ) 3.56, Lymphocytes # (Auto) 1.01, Monocytes # (Auto) 0.95, Eosinophils # (Auto ) 0.19, Basophils # (Auto) 0.04 11/27/17 05:57 Test 11/27/17 05:57 11/27/17 12:15 White Blood Count 5.76 K/uL (4.8-10.8) Red Blood Count 3.71 M/uL (4.7-6.1) Hemoglobin 10.1 g/dL (14.0-18.0) Hematocrit 31.0 % (42-52) Mean Corpuscular Volume 83.6 fL (80-100) Mean Corpuscular Hemoglobin 27.2 pg (25-34) Mean Corpuscular Hemoglobin Concent 32.6 g/dl (32-36) Platelet Count 286 K/uL (130-400) Mean Platelet Volume 8.5 fL (7.4-10.4) Neutrophils (%) (Auto) 61.8 % Lymphocytes (%) (Auto) 17.5 % Monocytes (%) (Auto) 16.5 % Eosinophils (%) (Auto) 3.3 % Basophils (%) (Auto) 0.7 % Neutrophils # (Auto) 3.56 K/uL (1.4-6.5) Lymphocytes # (Auto) 1.01 K/uL (1.2-3.4) Monocytes # (Auto) 0.95 K/uL (0.11-0.59) Eosinophils # (Auto) 0.19 K/uL (0-0.5) Basophils # (Auto) 0.04 K/uL (0-0.2) RDW Standard Deviation 46.2 fL (36.4-46.3) RDW Coefficient of Variation 15.1 % (11.5-14.5) Immature Granulocyte % (Auto) 0.2 % Immature Granulocyte # (Auto) 0.01 K/uL (0.00-0.02) Anion Gap 7.0 mmol/L (3-11) Est Creatinine Clear Calc Drug Dose 52.9 ml/min Estimated GFR () 68.4 Estimated GFR (Non- 59.0 BUN/Creatinine Ratio 10.4 (10-20) Calcium Level 8.9 mg/dl (8.5-10.1) Total Bilirubin 0.6 mg/dl (0.2-1) Aspartate Amino Transf (AST/SGOT) 29 U/L (15-37) Alanine Aminotransferase (ALT/SGPT) 23 U/L (12-78) Alkaline Phosphatase 94 U/L (45-117) Total Protein 6.6 gm/dl (6.4-8.2) Albumin 3.1 gm/dl (3.4-5.0) Globulin 3.5 gm/dl (2.5-4.0) Albumin/Globulin Ratio 0.9 (0.9-2) Bedside Glucose 304 mg/dl (70-99) Assessment and Plan 77y/oM with hx of bladder tumor presented with hematuria and pain following bladder tumor resection. 11/27--Patient reports continued pain today and bladder spasms. Increasing Oxybutynin to TID and adding IV Toradol 15 q 6h. In addition, continuing IVF while treating with Toradol. Patient seems to be have waxing and waning disorientation consistent with delirium. The patient has a number of risk factor ; age, pain, anticholinergic medications. While he is having episodes of confusion, the episodes are associated upon waking and he seems to have decent insight regarding confusion. Patient needs frequent orientation; leave the shades open, ambulate the patient. PT and OT has been ordered to work with the patient. Following urology recommendations. Hematuria with bladder spasms secondary to recent TURBT for bladder tumor - cipro 400 gm bid - oxybutynin 5 mg TID - Tramadol and acetaminophen 650mg Q24H for pain - Toradol 15mg q 6 hrs - per PCP patient tends to abuse benzo and recommended to avoid - irrigation of Goel prn for clotting - IVF NS 75mls/hr - Consult urology - attempted goel irritation this AM which was met with resistance and caused severe bladder spasm - morphine and B&O suppository for pain - wait and see if drains on its own before considering CBI - hold plavix Changes on CT scan calling for possible atypical pna vs chronic changes - patient denies any pulmonary symptoms/ cough/ sputum change, unlikely new infection New pulmonary nodule on Ct chest - follow up outpt per guidelines DMII - lantus 30 units am - insulin ISS Asthma/ emphysema - Continue Levalbuterol prn - continue Symbicort Hypothyroidism - Continue levothyroxine 100 mcg HTN/CAD/HLD - plavix held - metoprolol 50 mg bid - Atorvastatin 40mg daily Anxiety - Continue buspar 7.5 prn and venlafaxine 75 daily Esophagitis - Continue Protonix 40mg daily FULL CODE Resident Involvement: Resident Care Provided Care Provided: Adult [facility] Medicine Resident Physician Supervision Note: I interviewed and examined the patient. Discussed with Dr. Quiroz and agree with findings and plan as documented in the note. Any exceptions or clarifications are listed here: None Documented By: Tristan Guillen pain off and on - overall pattern is better but still quite intense when bladder spasms come. vitals noted nad slightly confused off and on hematuria about the same as above plus delirium - apeparing to be multifactorial metabolic encephalopathy w elements of environment, fatigue, med effect all playing a role. currently not on any "notoriously" delirogenic meds, but anticholinergic can contribute - although all in agreement for now that mitigating bladder spasms is a necessary role - and that uncontrolled pain would probably be at least as delirogenic if not more as the oxybutynin. continue supportive care.
[2017-11-27] MEDS ORDERED: KETOROLAC TROMETHAMINE 15 MG/ML VIAL IM PRN (12:45)
[2017-11-27] MEDS: SODIUM CHLOR 0.45% + 20MEQ KCL 1,000 ML IV SCH (14:09)
--- NOTE | 2017-11-27 15:41 | Progress Note ---
Subjective Date of Service: Nov 27, 2017. Subjective Pt evaluation today including: conversation w/ patient, conversation w/ family , physical exam, chart review, lab review, review of studies Pain: Tolerated. Improved spasms with less discomfort. Continues to have constipa PO Intake: Good Patient had delirium last night. Had similar episodes with previous admissions per family. Improved today. Spasms better controlled. Hematuria increased last night after passing small clots and debris. Draining well right now but dark red. No debris at this time. Transitioning to PO medications for spasms. Problem List Medical Problems: (1) Abdominal pain, left lower quadrant Status: Acute (2) Altered mental status Status: Acute (3) Bronchitis Status: Acute (4) Constipation Status: Acute (5) Dyspnea Status: Acute (6) Hyponatremia Status: Acute (7) Medication side effect Status: Acute (8) Pneumonia Status: Acute (9) Post-operative pain Status: Acute (10) SOB (shortness of breath) Status: Acute (11) TIA (transient ischemic attack) Status: Acute (12) Troponin level elevated Status: Acute (13) UTI (urinary tract infection) Status: Acute (14) UTI (urinary tract infection) Status: Acute Review of Systems All Other Systems: Reviewed and Negative Objective Vital Signs Date Time Temp Pulse Resp B/P (MAP) Pulse Ox O2 Delivery O2 Flow Rate FiO2 11/27/17 09:54 Room Air 11/27/17 07:20 36.7 66 16 155/74 (101) 99 Room Air 11/26/17 23:45 Room Air 11/26/17 23:43 36.8 74 18 117/65 (82) 94 Room Air 11/26/17 21:20 82 148/72 (97) 11/26/17 20:00 Room Air 11/26/17 16:04 36.6 82 16 131/73 (92) 93 Room Air 11/26/17 16:00 94 Room Air Physical Exam General Appearance: WD/WN, no apparent distress Eyes: normal inspection ENT: normal ENT inspection Neck: supple, no JVD Respiratory/Chest: no respiratory distress, no accessory muscle use Cardiovascular: regular rate, rhythm Abdomen: soft, no organomegaly Extremities: normal range of motion, no pedal edema, no calf tenderness 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, no motor/sensory deficits, alert, normal mood/affect, oriented x 3 Skin: normal color, warm/dry, no rash Lymphatic: no adenopathy Laboratory Results Last 24 Hours Test 11/26/17 17:11 11/26/17 20:46 11/27/17 05:57 11/27/17 08:11 Bedside Glucose 260 mg/dl 243 mg/dl 273 mg/dl White Blood Count 5.76 K/uL Red Blood Count 3.71 M/uL Hemoglobin 10.1 g/dL Hematocrit 31.0 % Mean Corpuscular Volume 83.6 fL Mean Corpuscular Hemoglobin 27.2 pg Mean Corpuscular Hemoglobin Concent 32.6 g/dl Platelet Count 286 K/uL Mean Platelet Volume 8.5 fL Neutrophils (%) (Auto) 61.8 % Lymphocytes (%) (Auto) 17.5 % Monocytes (%) (Auto) 16.5 % Eosinophils (%) (Auto) 3.3 % Basophils (%) (Auto) 0.7 % Neutrophils # (Auto) 3.56 K/uL Lymphocytes # (Auto) 1.01 K/uL Monocytes # (Auto) 0.95 K/uL Eosinophils # (Auto) 0.19 K/uL Basophils # (Auto) 0.04 K/uL RDW Standard Deviation 46.2 fL RDW Coefficient of Variation 15.1 % Immature Granulocyte % (Auto) 0.2 % Immature Granulocyte # (Auto) 0.01 K/uL Sodium Level 132 mmol/L Potassium Level 3.9 mmol/L Chloride Level 96 mmol/L Carbon Dioxide Level 29 mmol/L Anion Gap 7.0 mmol/L Blood Urea Nitrogen 12 mg/dl Creatinine 1.19 mg/dl Est Creatinine Clear Calc Drug Dose 52.9 ml/min Estimated GFR () 68.4 Estimated GFR (Non- 59.0 BUN/Creatinine Ratio 10.4 Random Glucose 225 mg/dl Calcium Level 8.9 mg/dl Total Bilirubin 0.6 mg/dl Aspartate Amino Transf (AST/SGOT) 29 U/L Alanine Aminotransferase (ALT/SGPT) 23 U/L Alkaline Phosphatase 94 U/L Total Protein 6.6 gm/dl Albumin 3.1 gm/dl Globulin 3.5 gm/dl Albumin/Globulin Ratio 0.9 Test 11/27/17 12:15 Bedside Glucose 304 mg/dl Assessment and Plan 1 Non-Muscle Invasive Bladder cancer 2. Gross Hematuria 3 Clot Retention 4 Severe spasms Continue drainage and close monitoring with hydration. Discussed management. Will support through acute episode of GH with retention. Urine light pink at this time. No major clot or debris. Will need to transition to anticholenergics and other oral control for spasms. Encouraged patient to ambulate and regain strength. Has not been regularly ambulating and feeling weak. Maintain catheter. \ 11/27/17 Delirium last night, likely exacerbation of chronic dementia issues. Hematuria restarted last night, now dark red but no clots. Will continue to monitor. Spasm medications transitioning from suppository to PO medications. Encouraged ambulation and change of environment.
[2017-11-27 16:12] VITALS: BP 151/69; PULSE 78; TEMP 36.8; O2SAT 93
[2017-11-27 16:27] VITALS: O2SAT 93
[2017-11-27 20:50] VITALS: BP 136/69; PULSE 78
[2017-11-27] MEDS: INSULIN GLARGINE SOLOSTAR 100 UNITS/ML 3 ML PEN SC SCH (21:01)
[2017-11-27 22:53] VITALS: BP 132/65; PULSE 86; TEMP 36.5; O2SAT 94
[2017-11-28] MEDS: SODIUM CHLOR 0.45% + 20MEQ KCL 1,000 ML IV SCH ×2 (01:52→15:16)
[2017-11-28] MEDS: BELLADONNA/OPIUM SUPP 60 MG SUPP PR PRN (04:03)
[2017-11-28] MEDS: LEVOTHYROXINE 100 MCG TAB PO SCH (05:49)
--- NOTE | 2017-11-28 06:41 | Family Medicine Progress Note ---
Progress Note Date of Service Nov 28, 2017. Subjective Patient is AAOX3. Seems to be a bit confused about hospital course. He says that the pain and bladder spasms have improved. PT is seeing patient today. Patient reports normal appetite. Constitutional: No fever, No chills Respiratory: No cough, No sputum, No wheezing, No shortness of breath Cardiovascular: No chest pain, No palpitations Abdomen: + pain, No nausea, No vomiting, No diarrhea Male : + hematuria Medications Current Inpatient Medications Medications (Trade) Dose Ordered Sig/Rose Mary Route Start Time Stop Time Status Last Admin Dose Admin Ioversol (Optiray 320) 125 ml UD PRN IV 11/24/17 16:45 11/28/17 16:44 Al Hydrox/Mg Hydrox/Simethicone (Maalox Max Susp) 15 ml Q4H PRN PO 11/24/17 23:30 12/24/17 23:29 Magnesium Hydroxide (Milk Of Magnesia Susp) 30 ml Q6H PRN PO 11/24/17 23:30 12/24/17 23:29 Polyethylene (Miralax Powder Packet) 17 gm DAILY PRN PO 11/24/17 23:30 12/24/17 23:29 Ondansetron HCl (Zofran Inj) 4 mg Q6H PRN IV 11/24/17 23:30 12/24/17 23:29 Morphine Sulfate (MoRPHine SULFATE INJ) 4 mg Q3H PRN IV 11/24/17 23:30 12/08/17 23:29 11/26/17 04:03 4 MG Albuterol (Ventolin Hfa Inhaler) 2 puffs QID PRN INH 11/24/17 23:30 12/24/17 23:29 Atorvastatin Calcium (Lipitor Tab) 40 mg DAILY PO 11/25/17 09:00 12/25/17 08:59 11/28/17 08:36 40 MG Budesonide/ Formoterol Fumarate (Symbicort 160/ 4.5 Inh) 2 puffs BID INH 11/25/17 09:00 12/25/17 08:59 11/28/17 08:37 2 PUFFS Levalbuterol (Xopenex Hfa Inhaler) 2 puffs Q6H PRN INH 11/24/17 23:30 12/24/17 23:29 Levothyroxine Sodium (Synthroid Tab) 100 mcg DAILYBB PO 11/25/17 06:00 12/25/17 05:59 11/28/17 05:49 100 MCG Metoprolol Succinate (Toprol Xl Tab) 50 mg BID PO 11/25/17 09:00 12/25/17 08:59 11/28/17 08:35 50 MG Multivitamins (Multivitamin Tab) 1 tab DAILY PO 11/25/17 09:00 12/25/17 08:59 11/28/17 08:36 1 TAB Pantoprazole Sodium (Protonix Tab) 40 mg DAILY PO 11/25/17 09:00 12/25/17 08:59 11/28/17 08:36 40 MG Polyethylene (Miralax Powder Packet) 17 gm DAILY PO 11/25/17 09:00 12/25/17 08:59 11/28/17 08:36 17 GM Venlafaxine HCl (effeXOR EXTENDED REL CAP) 75 mg DAILY PO 11/25/17 09:00 12/25/17 08:59 11/28/17 08:36 75 MG Buspirone HCl (BusPAR TAB) 7.5 mg TID PRN PO 11/24/17 23:30 12/24/17 23:29 11/27/17 21:53 7.5 MG Glucose (Glucose 40% Gel) 15-30 GRAMS 15 GRAMS... UD PRN PO 11/25/17 01:00 12/25/17 00:59 Glucose (Glucose Chew Tab) 4-8 Tablets 4 Tabl... UD PRN PO 11/25/17 01:00 12/25/17 00:59 Dextrose (Dextrose 50% 50ML Syringe) 25-50ML OF 50% DW IV FOR... UD PRN IV 11/25/17 01:00 12/25/17 00:59 Glucagon (Glucagon Inj) 1 mg UD PRN SQ 11/25/17 01:00 12/25/17 00:59 Miscellaneous (Iv Fluids Completed) 1 ea PRN PRN N/A 11/25/17 02:00 11/25/18 01:59 Insulin Aspart (novoLOG ASPART) SLIDING SCALE G... ACHS SC 11/25/17 08:00 12/25/17 07:59 11/28/17 12:55 7 UNITS Belladonna/Opium (B & O Adult Supp) 60 mg Q8 PRN KS 11/25/17 08:45 12/09/17 08:44 11/28/17 04:03 60 MG Tramadol HCl (Ultram Tab) 50 mg Q4H PRN PO 11/25/17 11:15 12/25/17 11:14 11/26/17 15:11 50 MG Phenazopyridine HCl (Pyridium Tab) 200 mg TID PO 11/26/17 17:32 12/26/17 17:31 11/28/17 12:51 200 MG Insulin Glargine (Lantus Solostar Pen) 20 units HS SC 11/26/17 21:00 12/26/17 20:59 11/27/17 21:01 20 UNITS Acetaminophen (Tylenol Tab) 650 mg QID PO 11/26/17 21:00 12/26/17 20:59 11/28/17 12:52 650 MG Oxybutynin Chloride (Ditropan Tab) 5 mg QID PO 11/27/17 13:00 12/26/17 17:30 11/28/17 12:51 5 MG Ketorolac Tromethamine (Toradol Inj) 15 mg Q6H PRN IM 11/27/17 12:45 12/02/17 12:44 Potassium Chloride/Sodium Chloride 1,000 ml @ 75 mls/hr [id number] IV 11/27/17 13:30 12/27/17 13:29 11/28/17 15:16 75 MLS/HR Objective Vital Signs Date Time Temp Pulse Resp B/P (MAP) Pulse Ox O2 Delivery O2 Flow Rate FiO2 11/28/17 15:41 36.6 75 18 112/64 (80) 93 Room Air 11/28/17 09:25 78 96 11/28/17 08:00 Room Air 11/28/17 07:55 36.6 72 16 149/83 (105) 95 Room Air 11/27/17 23:14 Room Air 11/27/17 22:53 36.5 86 17 132/65 (87) 94 Room Air 11/27/17 20:50 78 136/69 (91) 11/27/17 16:27 93 Room Air 11/27/17 16:12 36.8 78 16 151/69 (96) 93 Room Air Physical Exam General Appearance: WD/WN, no apparent distress Respiratory/Chest: chest non-tender, lungs clear, normal breath sounds Cardiovascular: regular rate, rhythm, no murmur Abdomen: normal bowel sounds, non tender, soft Neurologic/Psychiatric: alert, normal mood/affect, oriented x 3 Skin: normal color, warm/dry, no rash Laboratory Results 11/28/17 06:45 11/28/17 06:45 Test 11/27/17 20:29 11/28/17 06:45 Bedside Glucose 260 mg/dl (70-99) Red Blood Count 3.71 M/uL (4.7-6.1) Mean Corpuscular Volume 83.8 fL (80-100) Mean Corpuscular Hemoglobin 27.8 pg (25-34) Mean Corpuscular Hemoglobin Concent 33.1 g/dl (32-36) RDW Standard Deviation 46.3 fL (36.4-46.3) RDW Coefficient of Variation 15.2 % (11.5-14.5) Mean Platelet Volume 8.8 fL (7.4-10.4) Anion Gap 10.0 mmol/L (3-11) Est Creatinine Clear Calc Drug Dose 66.2 ml/min Estimated GFR () 89.8 Estimated GFR (Non- 77.4 BUN/Creatinine Ratio 8.4 (10-20) Calcium Level 9.4 mg/dl (8.5-10.1) Assessment and Plan 77y/oM with hx of bladder tumor presented with hematuria and pain following bladder tumor resection. 11/28--Patient reports decreased bladder spasm with increasing Oxybutynin to TID and adding IV Toradol 15 q 6h. In addition, continuing IVF while treating with Toradol. Followed up with urology regarding dispo. They would like to continue to monitor patients for clots and if the patient continue to produce urine, will challenge the patient without goel. Will consider goel removal as soon as tomorrow. In the meantime, continue to assess for clots and track output. H/ H remains stable today. Patient seems to be have waxing and waning disorientation consistent with delirium. The patient has a number of risk factor; age, pain, anticholinergic medications. Patient needs frequent orientation; leave the shades open, ambulate the patient. PT and OT has been ordered to work with the patient. Hematuria with bladder spasms secondary to recent TURBT for bladder tumor - oxybutynin 5 mg TID - Tramadol and acetaminophen 650mg Q24H for pain - Toradol 15mg q 6 hrs - per PCP patient tends to abuse benzo and recommended to avoid - irrigation of Goel prn for clotting - IVF NS 75mls/hr - Consult urology; appreciate recs. Changes on CT scan calling for possible atypical pna vs chronic changes - patient denies any pulmonary symptoms/ cough/ sputum change, unlikely new infection New pulmonary nodule on Ct chest - follow up outpt per guidelines DMII - lantus 30 units am - insulin ISS Asthma/ emphysema - Continue Levalbuterol prn - continue Symbicort Hypothyroidism - Continue levothyroxine 100 mcg HTN/CAD/HLD - plavix held - metoprolol 50 mg bid - Atorvastatin 40mg daily Anxiety - Continue buspar 7.5 prn and venlafaxine 75 daily Esophagitis - Continue Protonix 40mg daily FULL CODE Resident Involvement: Resident Care Provided Care Provided: Adult [facility] Medicine History Resident Physician Supervision Note: I was present with Dr. Quiroz during the history and exam. I discussed the case with the resident and agree with the findings and plan as documented in the note. Any exceptions or clarifications are listed here. Pt resting comfortably in bed without complaint at present. Still having hematuria through urinary catheter without clot or interruption of flow. General Appearance: WD/WN, no apparent distress Respiratory: chest non-tender, lungs clear, normal breath sounds, no respiratory distress Cardiovascular: normal peripheral pulses, regular rate, rhythm, no murmur Gastrointestinal: normal bowel sounds, non tender, soft, no organomegaly Assessment/Plan 77 y/o male h/o bladder tumor s/p TURBT, DMII, asthma/emphyzema presents w/ hematuria Hematuria with bladder spasm in the setting of recent TURBT - urology consultation - oxybutynin, tramadol/APAP for pain, IVF DMII - glargine with ISS - careful dietary control and coverage w/ insulin, regular FSBS Asthma/emphyzema - stable - continue inhalers HTN - stable - continue metoprolol CAD/HLD - holding Plavix, continue atorvastatin Anxiety - continue buspirone, venlafaxine. Avoid benzos Hypothyroidism - continue levothyroxine Pulmonary nodule - f/u as outpatient VTE PPX - SCDs FULL CODE
[2017-11-28 07:24] LABS: HEMATOCRIT 31.1 % (42-52); HEMOGLOBIN 10.3 g/dL (14.0-18.0); MEAN CELL VOLUME 83.8 fL (80-100); MEAN CORPUSCULAR HEMOGLOBIN 27.8 pg (25-34); MEAN CORPUSCULAR HGB CONC 33.1 g/dl (32-36); MEAN PLATELET VOLUME 8.8 fL (7.4-10.4); PLATELET COUNT 293 K/uL (130-400); RED CELL DISTRIBUTION WIDTH CV 15.2 % (11.5-14.5); RED CELL DISTRIBUTION WIDTH SD 46.3 fL (36.4-46.3); WHITE BLOOD COUNT 5.28 K/uL (4.8-10.8)
[2017-11-28 07:55] VITALS: BP 149/83; PULSE 72; TEMP 36.6; O2SAT 95
[2017-11-28 07:56] LABS: CALCIUM 9.4 mg/dl (8.5-10.1); CREATININE 0.95 mg/dl (0.60-1.40); POTASSIUM 4.4 mmol/L (3.5-5.1)
--- NOTE | 2017-11-28 08:34 | Progress Note ---
Subjective Date of Service: Nov 28, 2017. Subjective Pt evaluation today including: conversation w/ patient, chart review, lab review Voiding: goel catheter in place (patent, draining dark, merlot colored urine) 77 yo male with gross hematuria s/p TURBT. Pt continues to have dark, merlot colored urine this morning. H&H stable. Denies bladder spasms overnight. He states he feels weak this morning. Problem List Medical Problems: (1) Abdominal pain, left lower quadrant Status: Acute (2) Altered mental status Status: Acute (3) Bronchitis Status: Acute (4) Constipation Status: Acute (5) Dyspnea Status: Acute (6) Hyponatremia Status: Acute (7) Medication side effect Status: Acute (8) Pneumonia Status: Acute (9) Post-operative pain Status: Acute (10) SOB (shortness of breath) Status: Acute (11) TIA (transient ischemic attack) Status: Acute (12) Troponin level elevated Status: Acute (13) UTI (urinary tract infection) Status: Acute (14) UTI (urinary tract infection) Status: Acute Review of Systems Constitutional: No fever, No chills Respiratory: No shortness of breath Cardiac: No chest pain Abdomen: No pain, No nausea, No vomiting Male : + hematuria Heme: + abnormal bleeding/bruising Objective Vital Signs Date Time Temp Pulse Resp B/P (MAP) Pulse Ox O2 Delivery O2 Flow Rate FiO2 11/28/17 07:55 36.6 72 16 149/83 (105) 95 Room Air 11/27/17 23:14 Room Air 11/27/17 22:53 36.5 86 17 132/65 (87) 94 Room Air 11/27/17 20:50 78 136/69 (91) 11/27/17 16:27 93 Room Air 11/27/17 16:12 36.8 78 16 151/69 (96) 93 Room Air 11/27/17 09:54 Room Air Physical Exam General Appearance: no apparent distress Eyes: normal inspection ENT: hearing grossly normal Neck: no JVD Respiratory/Chest: no respiratory distress, no accessory muscle use Cardiovascular: no JVD Extremities: normal inspection Neurologic/Psychiatric: alert, normal mood/affect, oriented x 3 Skin: normal color Laboratory Results Last 24 Hours Test 11/27/17 12:15 11/27/17 17:21 11/27/17 20:29 11/28/17 06:45 Bedside Glucose 304 mg/dl 358 mg/dl 260 mg/dl White Blood Count 5.28 K/uL Red Blood Count 3.71 M/uL Hemoglobin 10.3 g/dL Hematocrit 31.1 % Mean Corpuscular Volume 83.8 fL Mean Corpuscular Hemoglobin 27.8 pg Mean Corpuscular Hemoglobin Concent 33.1 g/dl RDW Standard Deviation 46.3 fL RDW Coefficient of Variation 15.2 % Platelet Count 293 K/uL Mean Platelet Volume 8.8 fL Sodium Level 137 mmol/L Potassium Level 4.4 mmol/L Chloride Level 102 mmol/L Carbon Dioxide Level 25 mmol/L Anion Gap 10.0 mmol/L Blood Urea Nitrogen 8 mg/dl Creatinine 0.95 mg/dl Est Creatinine Clear Calc Drug Dose 66.2 ml/min Estimated GFR () 89.8 Estimated GFR (Non- 77.4 BUN/Creatinine Ratio 8.4 Random Glucose 208 mg/dl Calcium Level 9.4 mg/dl Assessment and Plan A/P: Gross hematuria s/p TURBT AFVSS. Hematuria persists. Will continue to observe for now. Continue to hold Plavix. Continue to monitor H&H. Management of bladder spasms with oxybutynin and Pyridium. Will continue to follow along with primary service.
[2017-11-28] MEDS: METOPROLOL SUCC 50MG EXT REL TAB PO SCH ×2 (08:35→21:47)
[2017-11-28] MEDS: PHENAZOPYRIDINE HCL 200 MG TAB PO SCH ×3 (08:36→21:46)
[2017-11-28] MEDS: MULTIVITAMIN TAB PO SCH (08:36)
[2017-11-28] MEDS: OXYBUTYNIN CHLORIDE 5 MG TAB PO SCH ×4 (08:36→21:47)
[2017-11-28] MEDS: POLYETHYLENE (MIRALAX) 17 GM PACK PO SCH (08:36)
[2017-11-28] MEDS: ATORVASTATIN 40 MG TAB PO SCH (08:36)
[2017-11-28] MEDS: VENLAFAXINE HCL XR 75 MG CAPXR PO SCH (08:36)
[2017-11-28] MEDS: PANTOprazole SOD 40 MG TAB PO SCH (08:36)
[2017-11-28] MEDS: ACETAMINOPHEN 325 MG TAB PO SCH ×4 (08:37→21:47)
[2017-11-28] MEDS: BUDESONIDE/FORMOTEROL FUMARATE 160/4.5 60 PUFFS/INHALER INH SCH ×2 (08:37→21:46)
[2017-11-28] MEDS: INSULIN ASPART 100 UNITS/ML 3 ML PEN SC SCH ×4 (08:41→21:51)
[2017-11-28 09:25] VITALS: BP 118/65; PULSE 78; O2SAT 96
[2017-11-28 15:15] VITALS: O2SAT 93
[2017-11-28 15:41] VITALS: BP 112/64; PULSE 75; TEMP 36.6; O2SAT 93
[2017-11-28 21:45] VITALS: BP 108/67; PULSE 67
[2017-11-28] MEDS: INSULIN GLARGINE SOLOSTAR 100 UNITS/ML 3 ML PEN SC SCH (21:52)
[2017-11-28] MEDS: BusPIRone 15 MG TAB PO PRN (23:09)
[2017-11-28 23:24] VITALS: BP 114/64; PULSE 62; TEMP 36.7; O2SAT 93
[2017-11-29] MEDS: SODIUM CHLOR 0.45% + 20MEQ KCL 1,000 ML IV SCH (04:01)
[2017-11-29] MEDS: LEVOTHYROXINE 100 MCG TAB PO SCH (05:45)
[2017-11-29 07:00] VITALS: BP 119/64; PULSE 65; TEMP 36.3; O2SAT 93
[2017-11-29 07:38] LABS: HEMATOCRIT 31.3 % (42-52); HEMOGLOBIN 10.1 g/dL (14.0-18.0); MEAN CELL VOLUME 84.8 fL (80-100); MEAN CORPUSCULAR HEMOGLOBIN 27.4 pg (25-34); MEAN CORPUSCULAR HGB CONC 32.3 g/dl (32-36); MEAN PLATELET VOLUME 8.5 fL (7.4-10.4); PLATELET COUNT 298 K/uL (130-400); RED CELL DISTRIBUTION WIDTH CV 15.4 % (11.5-14.5); RED CELL DISTRIBUTION WIDTH SD 47.4 fL (36.4-46.3)
[2017-11-29] MEDS ORDERED: INSULIN GLARGINE SOLOSTAR 100 UNITS/ML 3 ML PEN SC ONE (08:00)
[2017-11-29 08:12] LABS: CALCIUM 8.7 mg/dl (8.5-10.1); POTASSIUM 4.4 mmol/L (3.5-5.1)
[2017-11-29 08:15] VITALS: O2SAT 93
--- NOTE | 2017-11-29 08:25 | Progress Note ---
Subjective Date of Service: Nov 29, 2017. Subjective Pt evaluation today including: conversation w/ patient, chart review, lab review Voiding: goel catheter in place (patent, draining dark, beck colored urine. ) 77 yo male with gross hematuria s/p TURBT of large bladder tumor. Pt denies any bladder spasms overnight. States he is feeling better. Denies SOB. Urine dark beck colored in drainage tubing this morning with some small old clot. H&H remains stable. Problem List Medical Problems: (1) Abdominal pain, left lower quadrant Status: Acute (2) Altered mental status Status: Acute (3) Bronchitis Status: Acute (4) Constipation Status: Acute (5) Dyspnea Status: Acute (6) Hyponatremia Status: Acute (7) Medication side effect Status: Acute (8) Pneumonia Status: Acute (9) Post-operative pain Status: Acute (10) SOB (shortness of breath) Status: Acute (11) TIA (transient ischemic attack) Status: Acute (12) Troponin level elevated Status: Acute (13) UTI (urinary tract infection) Status: Acute (14) UTI (urinary tract infection) Status: Acute Review of Systems Constitutional: No fever, No chills Respiratory: No shortness of breath Cardiac: No chest pain Abdomen: No pain, No nausea, No vomiting Male : + hematuria Heme: + abnormal bleeding/bruising Objective Vital Signs Date Time Temp Pulse Resp B/P (MAP) Pulse Ox O2 Delivery O2 Flow Rate FiO2 11/29/17 07:00 36.3 65 18 119/64 (82) 93 Room Air 11/28/17 23:24 36.7 62 17 114/64 (81) 93 Room Air 11/28/17 23:22 Room Air 11/28/17 21:45 67 108/67 (81) 11/28/17 15:41 36.6 75 18 112/64 (80) 93 Room Air 11/28/17 15:15 93 Room Air 11/28/17 09:25 78 96 Physical Exam General Appearance: no apparent distress Eyes: normal inspection ENT: hearing grossly normal Neck: no JVD Respiratory/Chest: no respiratory distress, no accessory muscle use Cardiovascular: no JVD Extremities: normal inspection Neurologic/Psychiatric: alert, normal mood/affect, oriented x 3 Skin: normal color Laboratory Results Last 24 Hours Test 11/28/17 12:09 11/28/17 17:06 11/28/17 20:33 11/29/17 07:23 Bedside Glucose 252 mg/dl 339 mg/dl 230 mg/dl White Blood Count 5.50 K/uL Red Blood Count 3.69 M/uL Hemoglobin 10.1 g/dL Hematocrit 31.3 % Mean Corpuscular Volume 84.8 fL Mean Corpuscular Hemoglobin 27.4 pg Mean Corpuscular Hemoglobin Concent 32.3 g/dl RDW Standard Deviation 47.4 fL RDW Coefficient of Variation 15.4 % Platelet Count 298 K/uL Mean Platelet Volume 8.5 fL Sodium Level 138 mmol/L Potassium Level 4.4 mmol/L Chloride Level 105 mmol/L Carbon Dioxide Level 25 mmol/L Anion Gap 8.0 mmol/L Blood Urea Nitrogen 11 mg/dl Creatinine 1.00 mg/dl Est Creatinine Clear Calc Drug Dose 62.9 ml/min Estimated GFR () 84.4 Estimated GFR (Non- 72.8 BUN/Creatinine Ratio 10.6 Random Glucose 151 mg/dl Calcium Level 8.7 mg/dl Assessment and Plan A/P: Gross hematuria s/p TURBT AFVSS. Hematuria persists. Will continue to observe for now. Will attempt a TOV today as the catheter may be aggravating the bleeding. Continue bladder scans qshift to be sure he is emptying well. Continue to hold Plavix. Continue to monitor H&H. Management of bladder spasms with oxybutynin and Pyridium PRN. Recommend he remain inpatient at least until tomorrow to be sure he voids without issues. Will continue to follow along with primary service.
--- NOTE | 2017-11-29 08:30 | Family Medicine Progress Note ---
Progress Note Date of Service Nov 29, 2017. History Pt seen following goel removal - passing clear/yellow urine with some blood tinge. Reports no abdominal pain, nausea. General Appearance: WD/WN, no apparent distress Respiratory: chest non-tender, lungs clear, normal breath sounds, no respiratory distress Cardiovascular: normal peripheral pulses, regular rate, rhythm, no murmur Gastrointestinal: normal bowel sounds, non tender, soft, no organomegaly Assessment/Plan 77 y/o male h/o bladder tumor s/p TURBT, DMII, asthma/emphyzema presents w/ hematuria Hematuria with bladder spasm in the setting of recent TURBT - urology consultation - oxybutynin, tramadol/APAP for pain - goel removed and urinating well, precautions reviewed DMII - glargine with ISS - resume home regimen at discharge Asthma/emphyzema - stable - continue inhalers HTN - stable - continue metoprolol CAD/HLD - holding Plavix, continue atorvastatin Anxiety - continue buspirone, venlafaxine. Avoid benzos Hypothyroidism - continue levothyroxine Pulmonary nodule - f/u as outpatient VTE PPX - SCDs FULL CODE
[2017-11-29] MEDS: INSULIN ASPART 100 UNITS/ML 3 ML PEN SC SCH ×2 (08:45→13:24)
--- NOTE | 2017-11-29 09:18 | Clinical Documentation Query ---
CLINICAL DOCUMENTATION QUERY Dr. PEÑA, In your clinical opinion is this patient being managed for: ( ) Acute blood loss anemia ( ) Not Agree ( ) Other explanation of clinical findings (Please Explain) ( ) Unable to determine (Please Define) ( ) Need to Discuss The medical record reflects the following clinical findings, treatment, and risk factors. Clinical Indicators: 77 yo male presenting with postprocedural hematuria. Urine described as being merlot in color. Pt reported feeling weak. Initial Hgb 13.8, Hct 41.6 which has trended down to 10.1/31.3. Treatment: daily CBC's, urology consult, d/c goel catheter, hold plavix Risk Factors: gross hematuria Please clarify and document your clinical opinion in the progress notes and discharge summary. Terms such as "probable", "suspected", "likely", "questionable", "possible", or "still to be ruled out" are acceptable. IF IN AGREEMENT, YOU MUST DOCUMENT ABOVE DIAGNOSTIC STATEMENT IN DAILY PROGRESS NOTES AND DISCHARGE SUMMARY. This document is not part of the patient's record. Thank You, Kaila Rollins RN [phone]
[2017-11-29] MEDS: ATORVASTATIN 40 MG TAB PO SCH (09:19)
[2017-11-29] MEDS: BUDESONIDE/FORMOTEROL FUMARATE 160/4.5 60 PUFFS/INHALER INH SCH (09:19)
[2017-11-29] MEDS: MULTIVITAMIN TAB PO SCH (09:20)
[2017-11-29] MEDS: VENLAFAXINE HCL XR 75 MG CAPXR PO SCH (09:20)
[2017-11-29] MEDS: POLYETHYLENE (MIRALAX) 17 GM PACK PO SCH (09:20)
[2017-11-29] MEDS: OXYBUTYNIN CHLORIDE 5 MG TAB PO SCH ×3 (09:20→16:43)
[2017-11-29] MEDS: METOPROLOL SUCC 50MG EXT REL TAB PO SCH (09:20)
[2017-11-29] MEDS: PHENAZOPYRIDINE HCL 200 MG TAB PO SCH ×2 (09:21→13:25)
[2017-11-29] MEDS: PANTOprazole SOD 40 MG TAB PO SCH (09:21)
--- NOTE | 2017-11-29 09:21 | Clinical Documentation Query ---
CLINICAL DOCUMENTATION QUERY Dr. BRYAN, In your clinical opinion is this patient being managed for: ( ) Acute blood loss anemia ( ) Not Agree ( ) Other explanation of clinical findings (Please Explain) ( ) Unable to determine (Please Define) ( ) Need to Discuss The medical record reflects the following clinical findings, treatment, and risk factors. Clinical Indicators: 77 yo male presenting with postprocedural hematuria. Urine described as being merlot in color. Pt reported feeling weak. Initial Hgb 13.8, Hct 41.6 which has trended down to 10.1/31.3. Treatment: daily CBC's, urology consult, d/c goel catheter, hold plavix Risk Factors: gross hematuria Please clarify and document your clinical opinion in the progress notes and discharge summary. Terms such as "probable", "suspected", "likely", "questionable", "possible", or "still to be ruled out" are acceptable. IF IN AGREEMENT, YOU MUST DOCUMENT ABOVE DIAGNOSTIC STATEMENT IN DAILY PROGRESS NOTES AND DISCHARGE SUMMARY. This document is not part of the patient's record. Thank You, Kaila Rollins RN [phone]
[2017-11-29] MEDS: ACETAMINOPHEN 325 MG TAB PO SCH ×3 (09:22→16:43)
[2017-11-29 15:25] VITALS: O2SAT 93
[2017-11-29 15:26] VITALS: BP 135/68; PULSE 70; TEMP 36.3; O2SAT 93
--- NOTE | 2017-11-29 15:47 | Progress Note ---
Progress Note Date of Service Nov 29, 2017. Progress Note Pt seen this afternoon. Mondragon catheter removed this morning, and he is voiding without difficulty. Continues to have some hematuria. Pt OK for d/c home from [facility] as he is hemodynamically stable and voiding without difficulty. May tolerate some bleeding. Recommend he remain off Plavix while actively bleeding. Will arrange for outpatient f/u with Dr. Malone next week.
[2017-11-29] MEDS ORDERED: DTR5 PO (17:05)
--- NOTE | 2017-11-29 17:12 | Discharge Instructions ---
Discharge Instructions Date of Service Nov 29, 2017. Admission Reason for Admission: Hematuria, Spastic Bladder Discharge Discharge Diagnosis / Problem: Hematuria Discharge Goals Goal(s): Decrease discomfort, Therapeutic intervention Activity Recommendations Activity Limitations: resume your previous activity Lifting Limitations: none Exercise/Sports Limitations: none May Resume Sexual Activity: when tolerated Shower/Bathe: no limitations . Instructions / Follow-Up Instructions / Follow-Up You were admitted to the hospital for bleeding from the urinary tract after a recent procedure on your bladder. With urology following, we kept you to monitor your hemoglobin levels to ensure that they are stable. Fortunately you did not require any blood products or transfusions. Your hemoglobin remained stable during your admission and we all felt that you could safely be discharged home with close follow-up with your primary care provider and urology. You will need to follow-up with Urology next week. We can help you make this appointment. The only medication that we stopped was the Plavix, which you are taking for stroke prevention. Unfortunately, this increases the risk of bleeding. You should not take this until you are seen by urology and your primary care provider and they will decide if and when it is safe to resume this medication. We will also start you on oxybutynin to help with bladder spasm. So that we can make sure that your hemoglobin levels remain stable after you go home, please have blood done at the hospital in the next 3 days to ensure that your hemoglobin remains stable. If your symptoms fail to improve, acutely worsen, please seek medical attention immediately by either calling your primary care provider or going to your nearest emergency department. Otherwise, please see your primary care provider within 3-5 days to ensure that your symptoms continue to improve. It was a pleasure to be involved in your care and we wish you all the best. Current Hospital Diet Patient's current hospital diet: Diabetes Type 2 Diet Discharge Diet Recommended Diet: AHA Diet (Heart Healthy), Diabetes Type 2 Diet Pending Studies Studies pending at discharge: no Laboratory Results Hemoglobin A1c Test 11/08/17 11:15 Range/Units Estimated Average Glucose 200 mg/dl Hemoglobin A1c 8.6 H 4.5-5.6 % Medical Emergencies . Who to Call and When: Medical Emergencies: If at any time you feel your situation is an emergency, please call 911 immediately. . Non-Emergent Contact Non-Emergency issues call your: Primary Care Provider Call Non-Emergent contact if: you have a fever, your pain is worsening, your pain is concerning you, wound has increased drainage, you have any medication questions . . "Provider Documentation" section prepared by Pablo Rodriguez. . VTE Core Measure Inpt VTE Proph given/why not?: SCD's
[2017-11-29 17:30] VITALS: BP 135/68; PULSE 70; TEMP 36.3; O2SAT 93
[2017-11-29] MEDS ORDERED: INSULIN GLARGINE SOLOSTAR 100 UNITS/ML 3 ML PEN SC SCH (21:00)
--- NOTE | 2017-11-29 21:54 | Discharge Summary ---
Discharge Summary Date of Service Nov 29, 2017. Discharge Summary Admission Date: Nov 28, 2017 at 11:00 Discharge Date: Nov 29, 2017 Discharge Disposition: Home Principal Diagnosis: hematuria Immunizations: Have You Had Influenza Vaccine: Yes Influenza Vaccine Date: Aug 14, 2009 History of Tetanus Vaccine?: Yes Tetanus Immunization Date: March 28, 2005 History of Pneumococcal: Yes Pneumococcal Date: Aug 28, 2009 History of Hepatitis B Vaccine: No Discharge Exam Review of Systems: Constitutional: No fever, No chills, No sweats Respiratory: No cough, No sputum, No wheezing Cardiovascular: No chest pain, No palpitations Abdomen: No pain, No nausea, No vomiting Physical Exam: General Appearance: WD/WN, no apparent distress Respiratory/Chest: chest non-tender, lungs clear, normal breath sounds Cardiovascular: regular rate, rhythm, no edema, no gallop Abdomen / GI: normal bowel sounds, non tender, soft Neurologic/Psychiatric: alert, normal mood/affect, oriented x 3 Skin: normal color, warm/dry, no rash Hospital Course 77 yo m with a recent removal of a bladder tumor that presented to us with bladder pain and hematuria on Plavix for previous CVA. Patient presented to [facility] with passing clots, hematuria and severe bladder spasms. During his hospitalization, patient was observed with a goel catheter for clots and Plavix was dc'ed. In addition, the patient pain and spasms were controlled with Oxybutinin and Toradol. Throughout this period, the spasm subsided, H/H remained stable and the patient was challenged without goel and was able to urinate. With this said, urology recommended dc with close f/u of H/H. Will follow up shortly with PCP and urology. Pt instructed to continue to hold plavix. Of note, patient did have moments of delirium. Follow up mental status in the outpatient. See the problem for more information regarding course; Hematuria with bladder spasms secondary to recent TURBT for bladder tumor - oxybutynin 5 mg TID - Tramadol and acetaminophen 650mg Q24H for pain - Toradol 15mg q 6 hrs - per PCP patient tends to abuse benzo and recommended to avoid - irrigation of Goel prn for clotting - IVF NS 75mls/hr - Consult urology; appreciate recs. Changes on CT scan calling for possible atypical pna vs chronic changes - patient denies any pulmonary symptoms/ cough/ sputum change, unlikely new infection New pulmonary nodule on Ct chest - follow up outpt per guidelines DMII - lantus 30 units am - insulin ISS Asthma/ emphysema - Continue Levalbuterol prn - continue Symbicort Hypothyroidism - Continue levothyroxine 100 mcg HTN/CAD/HLD - plavix held - metoprolol 50 mg bid - Atorvastatin 40mg daily Anxiety - Continue buspar 7.5 prn and venlafaxine 75 daily Esophagitis - Continue Protonix 40mg daily FULL CODE Resident Involvement: Resident Care Provided Care Provided: Adult Hospital Medicine History Total Time Spent: Less than 30 minutes This includes examination of the patient, discharge planning, medication reconciliation, and communication with other providers. Discharge Instructions Please refer to the electronic Patient Visit Report (Discharge Instructions) for additional information. Additional Copies To Maribell Worrell C.R.N.P History Resident Physician Supervision Note: I was present with Dr. Quiroz during the history and exam. I discussed the case with the resident and agree with the findings and plan as documented in the note. Any exceptions or clarifications are listed here. For full attending history and exam, please see note from day of discharge. Assessment/Plan 77 y/o male h/o bladder tumor s/p TURBT, DMII, asthma/emphyzema presents w/ hematuria Hematuria with bladder spasm in the setting of recent TURBT - urology consultation - oxybutynin, tramadol/APAP for pain - goel removed and urinating well, precautions reviewed DMII - glargine with ISS - resume home regimen at discharge Asthma/emphyzema - stable - continue inhalers HTN - stable - continue metoprolol CAD/HLD - holding Plavix, continue atorvastatin Anxiety - continue buspirone, venlafaxine. Avoid benzos Hypothyroidism - continue levothyroxine Pulmonary nodule - f/u as outpatient
== END 2017-11-29 18:39 | disposition home or self-care (01) | DRG 921 ==
LOC: EDBD 15:58 → C.EDC 15:59 → C.MSW 23:21 → ENRESERV 23:44 → OBSVTOIN 11-28 11:00
PROVIDERS: ADMIT Hospitalist; ATTEND Family Medicine
DX: N99.820 Postprocedural hemorrhage of a genitourinary system organ or structure following a genitourinary system procedure (principal); J45.909 Unspecified asthma, uncomplicated; E11.9 Type 2 diabetes mellitus without complications; I25.10 Atherosclerotic heart disease of native coronary artery without angina pectoris; I10 Essential (primary) hypertension; K21.9 Gastro-esophageal reflux disease without esophagitis; F41.9 Anxiety disorder, unspecified; E03.9 Hypothyroidism, unspecified; Z83.3 Family history of diabetes mellitus; Z82.49 Family history of ischemic heart disease and other diseases of the circulatory system; Z87.891 Personal history of nicotine dependence; Z79.4 Long term (current) use of insulin; J43.9 Emphysema, unspecified; K20.9 Esophagitis, unspecified; R31.0 Gross hematuria; C67.9 Malignant neoplasm of bladder, unspecified; Z86.73 Personal history of transient ischemic attack (TIA), and cerebral infarction without residual deficits; N32.89 Other specified disorders of bladder; Y84.8 Other medical procedures as the cause of abnormal reaction of the patient, or of later complication, without mention of misadventure at the time of the procedure

== ENCOUNTER → 2018-05-17 | Outpatient (CLI) | payer BC ==
[~2018-05-17] MED LIST changes: -ASCA500 PO; +DTR5 PO; -PLV75 PO; -RXC5 PO
--- NOTE | 2018-05-17 08:15 | DIAGNOSTIC IMAGING REPORT ---
(CHEST) THORAX WITHOUT CT DOSE: 258.09 mGy.cm CLINICAL HISTORY: 77 years-old Male with R91.8 Pulmonary nodules. Follow-up study in a patient with pulmonary nodules TECHNIQUE: Multiaxial CT images of the chest were performed without contrast. A dose lowering technique was utilized adhering to the principles of ALARA. COMPARISON: CTA chest 11/24/2017, CT chest 10/28/2017 FINDINGS: Heart is normal in size with coronary arterial calcifications noted. No thoracic aortic aneurysm. Moderate calcification of the aorta. The unopacified pulmonary arterial tree appears unremarkable. There are no pathologically enlarged lymph nodes of the chest identified. Scattered nonenlarged mediastinal lymph nodes are likely physiologic. There is no pneumothorax or pleural effusion. Bilateral bronchial wall thickening with areas of mucous plugging redemonstrated. Multisegmental multilobar distribution of tree-in-bud nodules throughout all lobes bilaterally redemonstrated. Overall distribution of disease has not slightly worsened from most recent comparison 11/24/2017. 8 mm solid nodule within the posterior segment right upper lobe on image 141 of series 4 is new from comparison. Pleural-based 5 mm nodule of the anterior segment right upper lobe on image 150 series 4 also appears new. 6 mm probable fissural lymph node adjacent to the minor fissure on image 170 series 4 is unchanged. 7 mm nodule of the right middle lobe appears new as does a 1.3 cm nodule or conglomerate nodules about the right lower lobe on image 243 series 4. 6 mm pleural-based nodule right lower lobe on image 236 series 4 is unchanged. 5 mm solid nodule of the left upper lobe on image 104 series 4 appears new. No overt pulmonary edema. Mild biapical pleural-parenchymal scarring. Imaged upper abdominal structures demonstrate no acute abnormality. Unchanged probable cyst of the superior pole left kidney. Soft tissues are unremarkable. Suggested calcific tendinosis about the right rotator cuff. Probable remote fracture deformity of the proximal right clavicle. Multilevel discogenic degenerative changes and facet arthrosis. IMPRESSION: 1. Multi-segmental and multilobar distribution of tree-in-bud nodules with bilateral bronchial wall thickening and mild mucous plugging is again noted most compatible with infectious bronchiolitis with bronchitis. 2. There is mild progression of the solid pulmonary nodules which are predominately seen within a peripheral distribution measuring up to 1.3 cm within the right lower lobe, likely conglomerate solid nodularity. Additional scattered solid nodules are seen measuring up to 6-8 mm as detailed above. These are most likely on an infectious or inflammatory basis however precautionary guidelines are provided below. 3. Additional findings as above. Please refer to below summary of Fleischner criteria recommendations for follow-up of incidental CT nodules (Jean Mahajan, Guidelines for management of small pulmonary nodules detected on CT scans: A statement from the Fleischner Society, Radiology 237: [phone].) SOLID NODULES Multiple nodules size: <6 mm * Low risk patients: no routine follow-up * high risk patients: optional CT at 12 months Multiple nodules size: 6-8 mm * Low risk patients: follow-up at 3-6 months, then consider further follow-up at 18-24 months * high risk patients: follow-up at 3-6 months, then at 18-24 months if no change Multiple nodules size: >8 mm * Low risk patients: follow-up at 3-6 months, then consider further follow-up at 18-24 months * high risk patients: follow-up at 3-6 months, then at 18-24 months if no change Note: newly detected indeterminate nodule in persons 35 years of age or older. * Low risk patients: minimal or absent history of smoking and/or other known risk factors * high risk patients: history of smoking or of other known risk factors (e.g. first degree relative with lung cancer, or exposure to asbestos, radon, uranium) * if a nodule up to 8 mm is partly solid or is ground glass further follow-up is required after 24 months to exclude possible slow growing adenocarcinoma ([facility]) The above report was generated using voice recognition software. It may contain grammatical, syntax or spelling errors. Electronically signed by: Cosme Griffith M.D. 05/17/2018 8:14 AM Dictated Date/Time: 05/17/2018 7:54 AM
== END | disposition home or self-care (01) ==
LOC: C.CTS 07:41
PROVIDERS: ATTEND Nurse Practitioner
DX: R91.8 Other nonspecific abnormal finding of lung field (principal)

== ENCOUNTER 2020-12-03 04:04 | Inpatient (IN) ==
[2020-12-03] MEDS ORDERED: PHENAZOPYRIDINE HCL 200 MG TAB PO STA (04:19)
--- NOTE | 2020-12-03 04:19 | Emergency Department Note ---
Impression & Plan Acute hyperglycemia, Acute urinary retention, Gross hematuria, Lactic acidosis, Intractable abdominal pain ED Provider Note Name: CARA VERA Age: 80 Sex: M Arrives Via: Ambulance Informant: Patient, EMS ED Provider: Delta Caro MD Chief Complaint: Urinary Symptoms Impression: Acute Hyperglycemia Acute Urinary Retention Gross Hematuria Lactic Acidosis Intractable Abdominal Pain Medical Decision Makin yr old male with extensive PMH including diabetes, COPD, anxiety/depression, PAF, hypothyroid, gerd, gastroparesis, dlp arrives with complaint of pain with urination. Patient as TURBT done 5 days ago and notes blood since, sometimes with clots. He restarted Plavix 3 days ago. Now worsening pain and burning though on exam dose clearly have TTP over suprapubic area (though bladder scan with minimal). A bit tachy on arrival though clearly anxious/upset. Given Pyridium and basic labs ordered. Persistent tachy and anxiety thus small dose ativan given with minimal improvement. Goel attempted without significant clots obtained though bleeding/urine around it. IV fentanyl given x 2 with mild improvement pain. Persistent tachy, setting of significant hyperglycemia, and recent surgery thus obtained cultures, ct abd/pelv and further labs. EKG with sinus tach. Trop is negative. No evidence of DKA, with normal CO2, normal vbg. Did obtain blood cultures and lactate given persistent tachy and discomfort in setting of hyperglycemia. Lactate returned elevated. Already had received 1L NSS IV, thus second 1 L NSS IV bolus ordered for full 30ml/kg IV fluids resus. Tachy did start coming down with fluids and pain control. CT with large bladder hematoma. Air likely from goel flush earlier. Prior Medical Record and Triage/Nursing Notes reviewed by Me Additional history obtained from chart, ems Differentials:UTI, Urinary Retention, Post op complication, infection, obstructions, renal colic, amongst others Vital Signs: reviewed and remarkable for tachy, HTN Interventions: saline lock, nss bolus 500ml x 2, fentanyl 50mcg IV x 2, ativan 0.5mg IV, Dilaudid 0.5mg IV, insulin 6mg IV Labs:Reviewed and remarkable for elevated BSG Imaging:X ray results are stated below per my interpretation: Chest: 1 view: No infiltrate, no effusion, normal cardiac border. Questionable lucency under diaphragm left EKG:Per My Interpretation: Indication Tachycardia: Sinus tach 121 bpm, qtc 522. No Ectopy. No Ischemia. Compared to EKG 12/03/20, no significant changes. Cardiac/Tele Monitoring: Cardiac Monitoring: An Order was placed for continuous cardiac monitoring. The monitor shows a rate of 121 with a sinus tach rhythm. Consults: Dr Malone: Requests hospitalist admit for medical issue management. Hold off on further irrigation/goel and do not do CBI Dr Rowell: [place] Hospitalist. Plan: Disposition:Hospitalization. Condition: Fair History of Present Illness:80 yr old male arrives for evaluation of pain with urination. Patient notes bladder surgery (TURBT per chart) done 5 days ago. Since then with blood in urine. The last 2 days increasing pain with urination and passing some clots. Notes severe pain tonight. Waxes and wanes with moderate pain currently. Notes chronic SOB, unchanged currently. No fevers, chills, cp, syncope, back pain, abdominal pain, bowel changes, leg swelling nor other symptoms. Notes GOMEZ chronically unchanged as well. No medications prior to arrival. Urination makes worse, not peeing makes better. Patient on plavix and restarted 3 days ago. ROS: See above HPI for pertinent positives & negatives. A total of 10 systems reviewed and were otherwise negative. Past Medical History:See Below Past Surgical History:See Below Family History:See Below Social History:See Below Home Medications:See Below Allergies:doxy, levaquin, oxycodone Vitals:Blood Pressure: 153/104, Pulse 126, RR 18, T 36C, O2 97% on RA Physical Exam: GENERAL: Patient is severely anxious appearing and in minimal distress. upset EYES: No scleral icterus, unremarkable pupils. ENT: Mucous membranes moist, no nasal congestion. NECK: No masses appreciated, nomeningismus, trachea is midline. RESPIRATORY: No dyspnea. Clear to auscultation and equal bilaterally. No wheeze, no rhonchi. CARDIOVASCULAR: Tachy.No murmurs, rubs, gallops appreciated. GASTROINTESTINAL: Abdomen soft, non-tender, no peritonitis.Bowel sounds positive.No masses appreciated. : small drop of blood at tip meatus. Circumcised male with normal external genitalia. BACK: No midline tenderness, no CVA tenderness EXTREMITIES: Normal motion all extremities, no cyanosis, no edema. NEUROLOGIC: Alert and oriented, no acute motor or sensory deficits, no focal weakness, cranial nerves grossly intact. SKIN: No rash, no jaundice, no diaphoresis. PSYCH: Very anxious and upset GCS: 15 ED Course: Times/Reassessments: Waxing/waning pain. Unable to clear bladder with goel flush. Pain eventually controlled with multiple rounds narcotics. With persistent tachy cultures/lactate obtained. lactate up and further fluids ordered. Patient stable and feeling better with improving HR Delta Caro MD Past Med/Surg History Medical History (Updated 12/03/20 @ 22:22 by Ranjeet Rowell DO) Afib Single episode 09/2017 in setting of acute illness. No known reoccurance. Anxiety Asthma Using rescue inhaler BID Cancer H/O BLADDER CA/TURBT- NO CHEMO OR RADIATION Chronic obstructive pulmonary disease CVA (cerebral vascular accident) 03/2017. Continues on Plavix. Depression Diabetes mellitus IDDM, uncontrolled -- A1C 11% 11/21/20. Diabetic peripheral neuropathy Very mild Dyslipidemia Gastroparesis GERD without esophagitis History of stroke Versus TIA, history is unclear, but pt continues on Clopidogrel. 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 Previously had a severe chronic cough but now feels this has mostly resolved on medications. Per 01/2020 ID note, "pt will continue on current abx, month #6, will likely require at least 12 months therapy for MAC ." CXR showed chronic infection 07/2020. Nausea Chronic, intermittent. Poor historian Pt reports some issues with recall/memory. Pulmonary nodules Surgical History H/O lumbar discectomy History of bladder surgery TURBT= 11/01/17= GRADE [facility]IEW 2, MAC 3.0, ETT 8.0 AT [facility] History of cataract surgery left and right History of colonoscopy (~2011) Diverticulosis History of esophagogastroduodenoscopy (EGD) History of tonsillectomy Family History Mother Family history of diabetes mellitus Myocardial infarction Father Myocardial infarction Other No family history of bleeding disorder Denies family history of Ovarian cancer Prostate cancer Breast cancer Colorectal cancer Social History Smoking Status: Former smoker Tobacco Type: Cigarettes Second Hand Exposure: No; Hx Alcohol Use: No Hx Substance Use: No Preferred Language: Yi Communication Ability: Effective Visual Impairment: No Limitations Spray Stainer Required: No Beliefs That Will Affect Care: None Current Living Situation: Spouse Feels Safe at Home: Yes caffeine: Yes Dental Care, Regularly: Yes Physical Activity Frequency: Does not Exercise Seatbelt Use: always Sunscreen Use: No Assistive Devices: Walker Allergies Allergies Allergy/AdvReac Type Severity Reaction Status Date / Time doxycycline AdvReac Intermediate nausea Verified 12/03/20 04:51 levofloxacin AdvReac Mild fidgety Verified 12/03/20 04:51 and anxiety oxycodone AdvReac Mild NAUSEA AND Verified 12/03/20 04:51 VOMITING Home Meds Home Medications Medication Instructions Recorded Confirmed albuterol sulfate 2 puff INHALATION Q6H PRN 11/13/19 12/03/20 clopidogrel [Plavix] 75 mg PO HS 06/04/20 12/03/20 insulin glargine 100 unit/mL (3 45 unit SQ QAM ml 09/09/20 12/03/20 mL) subcutaneous pen quetiapine 100 mg tablet 100 mg PO ONCE HS tab 09/09/20 12/03/20 atorvastatin 40 mg tablet 40 mg PO HS tab 09/12/20 12/03/20 levothyroxine 112 mcg tablet 112 mcg PO QAM tab 09/12/20 12/03/20 mirtazapine 45 mg tablet 45 mg PO QPM 09/12/20 12/03/20 venlafaxine 150 mg 150 mg PO HS cap 09/12/20 12/03/20 capsule,extended release 24 hr Advair HFA 2 puff INHALATION BID 11/20/20 12/03/20 cholecalciferol (vitamin D3) 125 mcg PO DAILY 11/20/20 12/03/20 ferrous sulfate 325 mg PO DAILY 11/20/20 12/03/20 olanzapine 2.5 mg PO HS 11/20/20 12/03/20 Previous Rx's Medication Instructions Recorded ondansetron HCl 4 mg tablet 4 mg PO Q8H PRN #30 tab 08/18/20 multivitamin 1 tab PO QAM #30 tab 09/09/20 Novolog Flexpen U-100 Insulin 100 20 unit SQ TID #30 ml NS 09/10/20 unit/mL (3 mL) subcutaneous OneTouch Ultra Blue Test Strip #400 ea NS 09/10/20 ethambutol 400 mg tablet 1,200 mg PO .COMPLEX #36 tab 09/12/20 olanzapine 5 mg tablet 5 mg PO HS #30 tab 09/12/20 rifampin 300 mg capsule 600 mg PO .COMPLEX #24 cap 09/12/20 tamsulosin 0.4 mg capsule 0.4 mg PO QPM #90 cap 10/23/20 metoprolol succinate 50 mg 50 mg PO BID #60 tab 11/25/20 tablet,extended release 24 hr pantoprazole 20 mg tablet,delayed 20 mg PO BID #60 tab 11/25/20 release hydrocodone-homatropine 5 mg-1.5 5 ml PO Q6H PRN #473 ml 11/27/20 mg/5 mL (5 mL) oral syrup sulfamethoxazole-trimethoprim 1 tab PO BID #3 tab 11/27/20 [Bactrim DS] Results & Data (ED) Vital Signs Vital Signs - 24 hr 12/03/20 04:17 12/03/20 05:14 12/03/20 05:31 Temperature 36.6 C Temperature Source Oral Pulse Rate 126 H 120 H 118 H Pulse Rate from SpO2 Sensor 123 H 117 H Pulse Rhythm Regular Respiratory Rate 18 20 24 Respiratory Effort / Characteristics Non-Labored Spontaneous Respiratory Depth Normal Respiratory Pattern Regular Blood Pressure 153/104 H 153/89 H 196/103 H Blood Pressure Mean 120 110 134 Blood Pressure Position Lying Pulse Oximetry 97 94 93 Oxygen Delivery Method Room Air Sepsis Recent Fever Within 48 Hours No Sepsis New/Unexplained Change in Mental Status No Sepsis Action Taken by Nursing No Action Required 12/03/20 06:00 12/03/20 06:26 12/03/20 07:00 Temperature Temperature Source Pulse Rate 118 H 112 H 106 H Pulse Rate from SpO2 Sensor 119 H 113 H Pulse Rhythm Respiratory Rate 12 24 21 Respiratory Effort / Characteristics Respiratory Depth Respiratory Pattern Blood Pressure 201/116 H 182/92 H 145/79 H Blood Pressure Mean 144 122 101 Blood Pressure Position Pulse Oximetry 96 96 Oxygen Delivery Method Sepsis Recent Fever Within 48 Hours Sepsis New/Unexplained Change in Mental Status Sepsis Action Taken by Nursing 12/03/20 07:40 12/03/20 07:42 12/03/20 08:00 Temperature Temperature Source Pulse Rate 103 H 96 H Pulse Rate from SpO2 Sensor 103 H 100 H 95 H Pulse Rhythm Respiratory Rate 18 19 17 Respiratory Effort / Characteristics Respiratory Depth Respiratory Pattern Blood Pressure 150/75 H 134/63 Blood Pressure Mean 100 86 Blood Pressure Position Pulse Oximetry 93 91 94 Oxygen Delivery Method Sepsis Recent Fever Within 48 Hours Sepsis New/Unexplained Change in Mental Status Sepsis Action Taken by Nursing Laboratory Data Result diagrams: 12/03/20 04:29 12/03/20 04:29 Lab Results 12/03/20 12/03/20 12/03/20 Range/Units 04:29 04:29 04:29 WBC 12.05 H (4.8-10.8) K/uL RBC 4.06 L (4.7-6.1) M/uL Hgb 12.0 L (14.0-18.0) g/dL Hct 34.7 L (42-52) % MCV 85.5 (80-100) fL MCH 29.6 (25-34) pg MCHC 34.6 (32-36) g/dL RDW Std Deviation 42.5 (36.4-46.3) fL RDW Coeff of Yulissa 13.8 (11.5-14.5) % Plt Count 309 (130-400) K/uL MPV 9.0 (7.4-10.4) fL Immature Gran % (Auto) 0.2 % Neut % (Auto) 80.0 % Lymph % (Auto) 10.1 % Crowley % (Auto) 8.7 % Eos % (Auto) 0.7 % Baso % (Auto) 0.3 % Neut # (Auto) 9.62 H (1.4-6.5) K/uL Lymph # (Auto) 1.22 (1.2-3.4) K/uL Crowley # (Auto) 1.05 H (0.11-0.59) K/uL Eos # (Auto) 0.09 (0-0.5) K/uL Baso # (Auto) 0.04 (0-0.2) K/uL Immature Gran # (Auto) 0.03 H (0.00-0.02) K/uL RBC Morphology Unremarkable PT (9.0-12.0) Seconds INR (0.9-1.1) APTT (21.0-31.0) Seconds PTT Ratio VBG pH (7.36-7.41) VBG pCO2 (38-50) mmHg VBG pO2 mmHg VBG HCO3 mmol/L VBG O2 Saturation % VBG Base Excess mEq/L Barometric Pressure mm/Hg Sodium 136 (136-145) mmol/L Potassium 4.6 (3.5-5.1) mmol/L Chloride 103 (98-107) mmol/L Carbon Dioxide 23 (21-32) mmol/L Anion Gap 10.0 (3-11) BUN 16 (7-18) mg/dl Creatinine 1.43 H (0.6-1.4) mg/dl Est Cr Clr Drug Dosing 39.6 ml/min Est GFR ( Amer) 53.6 Est GFR (Non-Af Amer) 46.3 BUN/Creatinine Ratio 10.9 (10-20) Glucose 529 H* (70-99) mg/dl POC Glucose (70-99) mg/dl Lactate (0.4-2.0) mmol/L Calcium 9.1 (8.5-10.1) mg/dl Magnesium (1.8-2.4) mg/dl Total Bilirubin (0.2-1) mg/dl Direct Bilirubin (0-0.2) mg/dl AST (15-37) U/L ALT (12-78) U/L Alkaline Phosphatase (45-117) U/L Troponin I (0-0.045) ng/ml Total Protein (6.4-8.2) gm/dl Albumin (3.4-5.0) gm/dl Lipase (73-393) U/L Beta-Hydroxybutyric Acd 6.30 H (0.2-2.81) mg/dl TSH (0.300-4.500) uIu/ml Urine Color Red Urine Appearance Turbid A (Clear) Urine pH 7.0 (4.5-7.5) Ur Specific Union 1.025 (1.000-1.030) Urine Protein 3+ H (Negative) Urine Glucose (UA) 3+ H (Negative) Urine Ketones Negative (Negative) Urine Blood 3+ H (Negative) Urine Nitrite Negative (Negative) Urine Bilirubin Negative (Negative) Urine Urobilinogen Negative (Negative) Ur Leukocyte Esterase Negative (Negative) Urine RBC >30 H (0-4) /hpf Urine WBC 5-10 H (0-5) /hpf Ur Epithelial Cells 0-5 (0-5) /lpf Urine Bacteria Negative (Negative) COVID-19 Eval Order SARS-CoV-2, RNA, NAAT (NEGATIVE) 12/03/20 12/03/20 12/03/20 Range/Units 04:30 05:20 05:20 WBC (4.8-10.8) K/uL RBC (4.7-6.1) M/uL Hgb (14.0-18.0) g/dL Hct (42-52) % MCV (80-100) fL MCH (25-34) pg MCHC (32-36) g/dL RDW Std Deviation (36.4-46.3) fL RDW Coeff of Yulissa (11.5-14.5) % Plt Count (130-400) K/uL MPV (7.4-10.4) fL Immature Gran % (Auto) % Neut % (Auto) % Lymph % (Auto) % Crowley % (Auto) % Eos % (Auto) % Baso % (Auto) % Neut # (Auto) (1.4-6.5) K/uL Lymph # (Auto) (1.2-3.4) K/uL Crowley # (Auto) (0.11-0.59) K/uL Eos # (Auto) (0-0.5) K/uL Baso # (Auto) (0-0.2) K/uL Immature Gran # (Auto) (0.00-0.02) K/uL RBC Morphology PT 10.5 (9.0-12.0) Seconds INR 1.0 (0.9-1.1) APTT 20.4 L (21.0-31.0) Seconds PTT Ratio 0.8 VBG pH (7.36-7.41) VBG pCO2 (38-50) mmHg VBG pO2 mmHg VBG HCO3 mmol/L VBG O2 Saturation % VBG Base Excess mEq/L Barometric Pressure mm/Hg Sodium (136-145) mmol/L Potassium (3.5-5.1) mmol/L Chloride (98-107) mmol/L Carbon Dioxide (21-32) mmol/L Anion Gap (3-11) BUN (7-18) mg/dl Creatinine (0.6-1.4) mg/dl Est Cr Clr Drug Dosing ml/min Est GFR ( Amer) Est GFR (Non-Af Amer) BUN/Creatinine Ratio (10-20) Glucose (70-99) mg/dl POC Glucose (70-99) mg/dl Lactate (0.4-2.0) mmol/L Calcium (8.5-10.1) mg/dl Magnesium (1.8-2.4) mg/dl Total Bilirubin (0.2-1) mg/dl Direct Bilirubin (0-0.2) mg/dl AST (15-37) U/L ALT (12-78) U/L Alkaline Phosphatase (45-117) U/L Troponin I (0-0.045) ng/ml Total Protein (6.4-8.2) gm/dl Albumin (3.4-5.0) gm/dl Lipase (73-393) U/L Beta-Hydroxybutyric Acd (0.2-2.81) mg/dl TSH (0.300-4.500) uIu/ml Urine Color Urine Appearance (Clear) Urine pH (4.5-7.5) Ur Specific Union (1.000-1.030) Urine Protein (Negative) Urine Glucose (UA) (Negative) Urine Ketones (Negative) Urine Blood (Negative) Urine Nitrite (Negative) Urine Bilirubin (Negative) Urine Urobilinogen (Negative) Ur Leukocyte Esterase (Negative) Urine RBC (0-4) /hpf Urine WBC (0-5) /hpf Ur Epithelial Cells (0-5) /lpf Urine Bacteria (Negative) COVID-19 Eval Order Covid19 [facility] SARS-CoV-2, RNA, NAAT NEGATIVE (NEGATIVE) 12/03/20 12/03/20 12/03/20 Range/Units 06:11 06:11 06:11 WBC (4.8-10.8) K/uL RBC (4.7-6.1) M/uL Hgb (14.0-18.0) g/dL Hct (42-52) % MCV (80-100) fL MCH (25-34) pg MCHC (32-36) g/dL RDW Std Deviation (36.4-46.3) fL RDW Coeff of Yulissa (11.5-14.5) % Plt Count (130-400) K/uL MPV (7.4-10.4) fL Immature Gran % (Auto) % Neut % (Auto) % Lymph % (Auto) % Crowley % (Auto) % Eos % (Auto) % Baso % (Auto) % Neut # (Auto) (1.4-6.5) K/uL Lymph # (Auto) (1.2-3.4) K/uL Crowley # (Auto) (0.11-0.59) K/uL Eos # (Auto) (0-0.5) K/uL Baso # (Auto) (0-0.2) K/uL Immature Gran # (Auto) (0.00-0.02) K/uL RBC Morphology PT (9.0-12.0) Seconds INR (0.9-1.1) APTT (21.0-31.0) Seconds PTT Ratio VBG pH 7.39 (7.36-7.41) VBG pCO2 39 (38-50) mmHg VBG pO2 33 mmHg VBG HCO3 23 mmol/L VBG O2 Saturation 63.0 % VBG Base Excess -2.0 mEq/L Barometric Pressure 724.3 mm/Hg Sodium (136-145) mmol/L Potassium (3.5-5.1) mmol/L Chloride (98-107) mmol/L Carbon Dioxide (21-32) mmol/L Anion Gap (3-11) BUN (7-18) mg/dl Creatinine (0.6-1.4) mg/dl Est Cr Clr Drug Dosing ml/min Est GFR ( Amer) Est GFR (Non-Af Amer) BUN/Creatinine Ratio (10-20) Glucose (70-99) mg/dl POC Glucose (70-99) mg/dl Lactate 3.2 H* (0.4-2.0) mmol/L Calcium (8.5-10.1) mg/dl Magnesium 1.7 L (1.8-2.4) mg/dl Total Bilirubin 0.4 (0.2-1) mg/dl Direct Bilirubin 0.1 (0-0.2) mg/dl AST 12 L (15-37) U/L ALT 21 (12-78) U/L Alkaline Phosphatase 84 (45-117) U/L Troponin I < 0.015 (0-0.045) ng/ml Total Protein 6.5 (6.4-8.2) gm/dl Albumin 3.3 L (3.4-5.0) gm/dl Lipase 115 (73-393) U/L Beta-Hydroxybutyric Acd (0.2-2.81) mg/dl TSH 5.730 H (0.300-4.500) uIu/ml Urine Color Urine Appearance (Clear) Urine pH (4.5-7.5) Ur Specific Union (1.000-1.030) Urine Protein (Negative) Urine Glucose (UA) (Negative) Urine Ketones (Negative) Urine Blood (Negative) Urine Nitrite (Negative) Urine Bilirubin (Negative) Urine Urobilinogen (Negative) Ur Leukocyte Esterase (Negative) Urine RBC (0-4) /hpf Urine WBC (0-5) /hpf Ur Epithelial Cells (0-5) /lpf Urine Bacteria (Negative) COVID-19 Eval Order SARS-CoV-2, RNA, NAAT (NEGATIVE) 12/03/20 Range/Units 07:06 WBC (4.8-10.8) K/uL RBC (4.7-6.1) M/uL Hgb (14.0-18.0) g/dL Hct (42-52) % MCV (80-100) fL MCH (25-34) pg MCHC (32-36) g/dL RDW Std Deviation (36.4-46.3) fL RDW Coeff of Yulissa (11.5-14.5) % Plt Count (130-400) K/uL MPV (7.4-10.4) fL Immature Gran % (Auto) % Neut % (Auto) % Lymph % (Auto) % Crowley % (Auto) % Eos % (Auto) % Baso % (Auto) % Neut # (Auto) (1.4-6.5) K/uL Lymph # (Auto) (1.2-3.4) K/uL Crowley # (Auto) (0.11-0.59) K/uL Eos # (Auto) (0-0.5) K/uL Baso # (Auto) (0-0.2) K/uL Immature Gran # (Auto) (0.00-0.02) K/uL RBC Morphology PT (9.0-12.0) Seconds INR (0.9-1.1) APTT (21.0-31.0) Seconds PTT Ratio VBG pH (7.36-7.41) VBG pCO2 (38-50) mmHg VBG pO2 mmHg VBG HCO3 mmol/L VBG O2 Saturation % VBG Base Excess mEq/L Barometric Pressure mm/Hg Sodium (136-145) mmol/L Potassium (3.5-5.1) mmol/L Chloride (98-107) mmol/L Carbon Dioxide (21-32) mmol/L Anion Gap (3-11) BUN (7-18) mg/dl Creatinine (0.6-1.4) mg/dl Est Cr Clr Drug Dosing ml/min Est GFR ( Amer) Est GFR (Non-Af Amer) BUN/Creatinine Ratio (10-20) Glucose (70-99) mg/dl POC Glucose 456 H* (70-99) mg/dl Lactate (0.4-2.0) mmol/L Calcium (8.5-10.1) mg/dl Magnesium (1.8-2.4) mg/dl Total Bilirubin (0.2-1) mg/dl Direct Bilirubin (0-0.2) mg/dl AST (15-37) U/L ALT (12-78) U/L Alkaline Phosphatase (45-117) U/L Troponin I (0-0.045) ng/ml Total Protein (6.4-8.2) gm/dl Albumin (3.4-5.0) gm/dl Lipase (73-393) U/L Beta-Hydroxybutyric Acd (0.2-2.81) mg/dl TSH (0.300-4.500) uIu/ml Urine Color Urine Appearance (Clear) Urine pH (4.5-7.5) Ur Specific Union (1.000-1.030) Urine Protein (Negative) Urine Glucose (UA) (Negative) Urine Ketones (Negative) Urine Blood (Negative) Urine Nitrite (Negative) Urine Bilirubin (Negative) Urine Urobilinogen (Negative) Ur Leukocyte Esterase (Negative) Urine RBC (0-4) /hpf Urine WBC (0-5) /hpf Ur Epithelial Cells (0-5) /lpf Urine Bacteria (Negative) COVID-19 Eval Order SARS-CoV-2, RNA, NAAT (NEGATIVE) Administered Medications Atorvastatin Calcium (Atorvastatin 40 Mg Tab) 40 mg PO HS [facility] Stop: 01/02/21 20:59 Last Admin: 12/03/20 21:15 Dose: 40 mg Documented by: [id number] Ethambutol HCl (Ethambutol Hcl 400 Mg Tab) 1,200 mg PO [id number] [facility] Stop: 01/02/21 14:31 Last Admin: 12/03/20 15:31 Dose: 1,200 mg Documented by: [id number] Sodium Chloride (Nss 1000ml) 1,000 mls @ 125 mls/hr IV .Q8H [facility] Stop: 01/02/21 07:14 Last Admin: 12/03/20 23:00 Dose: 125 mls/hr Documented by: [id number] Infusion: 12/03/20 22:49 Dose: 125 mls/hr Documented by: [id number] Admin: 12/03/20 14:49 Dose: 125 mls/hr Documented by: [id number] Infusion: 12/03/20 14:49 Dose: 125 mls/hr Documented by: [id number] Admin: 12/03/20 08:27 Dose: 125 mls/hr Documented by: [id number] Insulin Aspart (Insulin Aspart 100 Units/Ml 3 Ml Pen) 0 units SC ACHS [facility] Stop: 01/02/21 16:29 Last Admin: 12/03/20 21:16 Dose: 1 units Documented by: [id number] Cosigned by: [id number] Admin: 12/03/20 17:20 Dose: 12 units Documented by: [id number] Cosigned by: [id number] Admin: 12/03/20 15:26 Dose: 7 units Documented by: [id number] Cosigned by: [id number] Insulin Glargine (Insulin Glargine Solostar 100 Units/Ml 3 Ml Pen) 45 units SQ QAM [facility] Stop: 01/02/21 14:59 Last Admin: 12/03/20 15:24 Dose: 45 units Documented by: [id number] Cosigned by: [id number] Levothyroxine Sodium (Levothyroxine Sodium 112 Mcg Tablet) 112 mcg PO DAILYBB [facility] Stop: 01/02/21 15:29 Last Admin: 12/03/20 15:22 Dose: 112 mcg Documented by: [id number] Metoprolol Succinate (Metoprolol Succ 50mg Ext Rel Tab) 50 mg PO BID [facility] Stop: 01/02/21 14:59 Last Admin: 12/03/20 21:16 Dose: Not Given Documented by: [id number] Admin: 12/03/20 15:31 Dose: 50 mg Documented by: [id number] Mirtazapine (Mirtazapine Soltab 15 Mg) 45 mg PO QPM [facility] Stop: 01/02/21 20:59 Last Admin: 12/03/20 21:15 Dose: 45 mg Documented by: [id number] Olanzapine (Olanzapine 2.5 Mg Tab) 2.5 mg PO HS [facility] Stop: 01/02/21 20:59 Last Admin: 12/03/20 21:15 Dose: 2.5 mg Documented by: [id number] Olanzapine (Olanzapine 5 Mg Tablet) 5 mg PO HS [facility] Stop: 01/02/21 20:59 Last Admin: 12/03/20 21:15 Dose: 5 mg Documented by: [id number] Pantoprazole Sodium (Pantoprazole 40 Mg Tab) 40 mg PO BID [facility] Stop: 01/02/21 14:59 Last Admin: 12/03/20 21:15 Dose: 40 mg Documented by: [id number] Admin: 12/03/20 15:30 Dose: 40 mg Documented by: [id number] Quetiapine Fumarate (Quetiapine Fumarate 25 Mg Tablet) 50 mg PO HS [facility] Stop: 01/02/21 20:59 Last Admin: 12/03/20 21:15 Dose: Not Given Documented by: [id number] Rifampin (Rifampin 300 Mg Capsule) 600 mg PO [id number] [facility] Stop: 01/02/21 14:59 Last Admin: 12/03/20 15:32 Dose: 600 mg Documented by: [id number] Tamsulosin HCl (Tamsulosin Hcl 0.4 Mg Cap) 0.4 mg PO QPM [facility] Stop: 01/02/21 20:59 Last Admin: 12/03/20 21:15 Dose: 0.4 mg Documented by: [id number] Venlafaxine HCl (Venlafaxine Hcl Xr 150 Mg Capxr) 150 mg PO HS [facility] Stop: 01/02/21 20:59 Last Admin: 12/03/20 21:15 Dose: 150 mg Documented by: [id number] Discontinued Medications Fentanyl Citrate (Fentanyl Citrate 100 Mcg/2 Ml Vial) 50 mcg IV NOW STA Stop: 12/03/20 05:29 Last Admin: 12/03/20 05:31 Dose: 50 mcg Documented by: [id number] Fentanyl Citrate (Fentanyl Citrate 100 Mcg/2 Ml Vial) 50 mcg IV NOW STA Stop: 12/03/20 06:15 Last Admin: 12/03/20 06:26 Dose: 50 mcg Documented by: [id number] Hydromorphone HCl (Hydromorphone Inj 0.5 Mg/0.5 Ml Syr) 0.5 mg IV NOW STA Stop: 12/03/20 06:48 Last Admin: 12/03/20 07:35 Dose: 0.5 mg Documented by: [id number] Lorazepam (Ativan) 0.5 mg in 1 mls @ 1 mls/min IV NOW STA Stop: 12/03/20 05:06 Last Admin: 12/03/20 05:11 Dose: 1 mls/min Documented by: [id number] Sodium Chloride (Nss 1000ml) 500 mls @ 999 mls/hr IV .Q31M ONE Stop: 12/03/20 05:58 Last Infusion: 12/03/20 06:08 Dose: 0 mls/hr Documented by: [id number] Admin: 12/03/20 05:36 Dose: 999 mls/hr Documented by: [id number] Sodium Chloride (Nss 1000ml) 500 mls @ 999 mls/hr IV .Q31M ONE Stop: 12/03/20 06:19 Last Infusion: 12/03/20 06:39 Dose: 0 mls/hr Documented by: [id number] Admin: 12/03/20 06:06 Dose: 999 mls/hr Documented by: [id number] Sodium Chloride (Nss 1000ml) 1,000 mls @ 999 mls/hr IV .Q1H1M ONE Stop: 12/03/20 07:53 Last Infusion: 12/03/20 08:28 Dose: 0 mls/hr Documented by: [id number] Admin: 12/03/20 07:36 Dose: 999 mls/hr Documented by: [id number] Ceftriaxone Sodium (Rocephin) 2,000 mg in 70 mls @ 140 mls/hr IV NOW STA Stop: 12/03/20 07:28 Last Admin: 12/03/20 07:13 Dose: Not Given Documented by: [id number] Cefepime HCl (Maxipime) 2,000 mg in 20 mls @ 5 mls/min IV NOW STA Stop: 12/03/20 07:04 Last Admin: 12/03/20 07:35 Dose: 5 mls/min Documented by: [id number] Vancomycin HCl 1,250 mg/ (Sodium Chloride) 525 mls @ 200 mls/hr IV NOW ONE Stop: 12/03/20 09:38 Last Infusion: 12/03/20 11:17 Dose: 0 mls/hr Documented by: [id number] Admin: 12/03/20 07:36 Dose: 200 mls/hr Documented by: [id number] Insulin Aspart (Insulin Aspart Per Unit) Confirm Administered Dose 8 units .ROUTE .STK-MED ONE Stop: 12/03/20 13:29 Last Admin: 12/03/20 16:21 Dose: Not Given Documented by: [id number] Insulin Human Regular (Novolin-R Insulin Per Unit Charge) Confirm Administered Dose 6 units .ROUTE .STK-MED ONE Stop: 12/03/20 06:02 Last Admin: 12/03/20 06:06 Dose: Not Given Documented by: [id number] Insulin Human Regular (Insulin Human Regular) 6 units IV NOW STA Stop: 12/03/20 06:05 Last Admin: 12/03/20 06:05 Dose: 6 units Documented by: [id number] Cosigned by: [id number] Insulin Human Regular (Insulin Human Regular) 6 units IV NOW STA Stop: 12/03/20 07:09 Last Admin: 12/03/20 07:47 Dose: 6 units Documented by: [id number] Cosigned by: [id number] Insulin Human Regular (Novolin-R Insulin Per Unit Charge) Confirm Administered Dose 6 units .ROUTE .[facility]-MED ONE Stop: 12/03/20 07:18 Last Admin: 12/03/20 08:08 Dose: Not Given Documented by: [id number] Ioversol (Ioversol 100ml) 94 ml IV ONCE ONE Stop: 12/03/20 07:18 Last Admin: 12/03/20 07:18 Dose: 94 ml Documented by: [id number] Phenazopyridine HCl (Phenazopyridine Hcl 200 Mg Tab) 200 mg PO NOW STA Stop: 12/03/20 04:20 Last Admin: 12/03/20 04:30 Dose: 200 mg Documented by: [id number] Discharge Plan Visit Data Chief Complaint: Urinary Symptoms Stated Complaint: URINARY SYMPTOMS/BLOOD IN URINE ED Provider: Delta Caro Discharge Problem: Acute hyperglycemia, Acute urinary retention, Gross hematuria, Lactic acidosis, Intractable abdominal pain Patient Disposition: Admitted As Inpatient Discharge Instructions Interventions: ED Discharge Assessment Last Done: 12/03/20 11:32
[2020-12-03 04:41] LABS: Hematocrit (blood only) 34.7 % (42-52); Mean Corpuscular Hemoglobin 29.6 pg (25-34); Mean Corpuscular Hgb Conc 34.6 g/dL (32-36); Mean Corpuscular Volume 85.5 fL (80-100); Platelet Count 309 K/uL (130-400); RDW Coefficient of Variation 13.8 % (11.5-14.5); RDW Standard Deviation 42.5 fL (36.4-46.3); Red Blood Count 4.06 M/uL (4.7-6.1); White Blood Count 12.05 K/uL (4.8-10.8)
[2020-12-03 04:52] LABS: Appearance Urine Turbid (Clear); Bilirubin Urine Negative (Negative); Blood Urine 3+ (Negative); Color Urine Red; Glucose Urine UA 3+ (Negative); Ketones Urine Negative (Negative); Leukocyte Esterase Urine Negative (Negative); Nitrite Urine Negative (Negative); Protein Urine 3+ (Negative); Specific Gravity Urine 1.025 (1.000-1.030); Urobilinogen Urine Negative (Negative)
[2020-12-03 05:03] LABS: Epithelial Cell Urine 0-5 /lpf (0-5)
[2020-12-03 05:04] LABS: Bacteria Urine Negative (Negative); RBC Urine >30 /hpf (0-4)
[2020-12-03] MEDS ORDERED: LORazepam 0.5 MG/1 ML VIAL IV STA (05:05)
[2020-12-03 05:09] LABS: Basophils # (auto) 0.04 K/uL (0-0.2); Basophils % (auto) 0.3 %; Eosinophils # (auto) 0.09 K/uL (0-0.5); Eosinophils % (auto) 0.7 %; Immature Granulocytes # (auto) 0.03 K/uL (0.00-0.02); Immature Granulocytes % (auto) 0.2 %; Lymphocytes # (auto) 1.22 K/uL (1.2-3.4); Lymphocytes % (auto) 10.1 %; Monocytes # (auto) 1.05 K/uL (0.11-0.59); Monocytes % (auto) 8.7 %; Neutrophils # (auto) 9.62 K/uL (1.4-6.5); RBC Morphology Unremarkable
[2020-12-03] MEDS ORDERED: SODIUM CHLORIDE 0.9% 1000ML 500 ML IV ONE ×2 (05:28→05:49)
[2020-12-03] MEDS ORDERED: fentaNYL citrate 100 MCG/2 ML VIAL IV STA ×2 (05:28→06:14)
[2020-12-03 05:40] LABS: BUN Creatinine Ratio 10.9 (10-20); Calcium 9.1 mg/dl (8.5-10.1); Creatinine Clr Calc Pharmacy 39.6 ml/min; Est GFR (African American) 53.6; Est GFR (Non-African American) 46.3; Potassium 4.6 mmol/L (3.5-5.1)
[2020-12-03 05:40] LABS: Partial Thromboplastin Ratio 0.8; Partial Thromboplastin Time 20.4 Seconds (21.0-31.0); Prothrombin Time 10.5 Seconds (9.0-12.0)
[2020-12-03] MEDS ORDERED: NovoLIN-R INSULIN PER UNIT CHARGE ONE ×2 (06:01→07:17)
[2020-12-03] MEDS ORDERED: INSULIN HUMAN REGULAR IV STA ×2 (06:04→07:08)
[2020-12-03 06:09] LABS: Beta-Hydroxybutyrate 6.3 mg/dl (0.2-2.81)
[2020-12-03 06:34] LABS: pH VBG 7.39 (7.36-7.41)
[2020-12-03] MEDS ORDERED: HYDROmorphone INJ 0.5 MG/0.5 ML SYR IV STA (06:47)
[2020-12-03] MEDS ORDERED: SODIUM CHLORIDE 0.9% 1000ML 1,000 ML IV ONE (06:53)
--- NOTE | 2020-12-03 06:54 | XRay Report ---
XR chest 1V portable HISTORY: 80 years-old Male acute hyperglycemia post op acute hyperglycemia COMPARISON: Chest radiograph 07/29/2020, CTA of the chest 09/14/2018. TECHNIQUE: Portable AP view of the chest FINDINGS: Cardiomediastinal and hilar silhouettes are within normal limits. Chronic reticulonodular opacities w ithout pneumothorax, pleural effusion, overt pulmonary edema or lobar airspace consolidation. Degener ative changes of the shoulders and spine. IMPRESSION: 1. No acute process. 2. Stable chronic reticular nodular opacities are better characterized on comparison CTA of the chest suggestive of a nonspecific chronic infectious or inflammatory pneumonitis. ACT 112: Negative or not required by law. The above report was generated using voice recognition software. It may contain grammatical, syntax o r spelling errors. Electronically signed by: Cosme Griffith M.D. 12/03/2020 6:53 AM
[2020-12-03 06:55] LABS: Alanine Aminotransferase 21 U/L (12-78); Albumin Level 3.3 gm/dl (3.4-5.0); Alkaline Phosphatase 84 U/L (45-117); Aspartate Aminotransferase 12 U/L (15-37); Bilirubin Direct 0.1 mg/dl (0-0.2); Bilirubin,Total 0.4 mg/dl (0.2-1); Lipase 115 U/L (73-393); Magnesium 1.7 mg/dl (1.8-2.4); Total Protein 6.5 gm/dl (6.4-8.2); Troponin I < 0.015 ng/ml (0-0.045)
[2020-12-03] MEDS ORDERED: cefTRIAXone SODIUM 2,000 MG/70 ML BAG IV STA (06:59)
[2020-12-03] MEDS ORDERED: CEFEPIME 2,000 MG/20 ML VIAL IV STA (07:01)
[2020-12-03] MEDS ORDERED: VANCOMYCIN CONSULT ACTIVE PRN (07:01)
[2020-12-03] MEDS ORDERED: VANCOMYCIN HCL 1,250 MG in SODIUM CHLORIDE 0.9% 500 ML IV ONE (07:01)
[2020-12-03] MEDS ORDERED: OPTIRAY 320 100ml IV ONE (07:17)
[2020-12-03] MEDS ORDERED: INSULIN HUMAN REGULAR SC SCH (07:30)
--- NOTE | 2020-12-03 08:25 | CT Scan Report ---
CT SCAN OF THE ABDOMEN AND PELVIS WITH IV CONTRAST CLINICAL HISTORY: Pelvic pain. Recent bladder surgery. COMPARISON STUDY: Abdominal CT dated 06/19/2020. TECHNIQUE: Following the IV administration of 94 cc of Optiray 320, CT scan of the abdomen and pelvi s is performed from the lung bases to the proximal femora. Images are reviewed in the axial, sagittal , and coronal planes. IV contrast was administered without complication. A dose lowering technique wa s utilized adhering to the principles of ALARA. CT DOSE: 363.47 mGy.cm FINDINGS: Lung bases: The heart is normal in size and without pericardial effusion. Scarring/atelectasis is not ed in the right middle lobe and lingula. Numerous foci of tree-in-bud nodularity are present at the l blaze bases. There is no lobar consolidation or pleural effusion. There is a small hiatal hernia. Circu mferential wall thickening is seen in the distal esophagus. Liver: The contrast-enhanced liver is normal in size, contour, and attenuation. There is no intrahepa tic biliary ductal dilatation. The hepatic veins and portal veins are patent. Gallbladder: Unremarkable. Spleen: Normal in size and attenuation. Pancreas: Moderately atrophic and grossly unremarkable. Adrenal glands: Unremarkable. Kidneys: The contrast enhanced kidneys demonstrate mild cortical atrophy. There is mild bilateral hyd roureteronephrosis. The ureters are distended to the level of the bladder. The kidneys enhance symmet rically. A 2 cm cyst is noted in the left upper pole. Abdominal vasculature: The abdominal aorta is normal in course and caliber noting moderate to advance d atherosclerotic calcification. Bowel: There is mild to moderate colonic diverticulosis without CT evidence of acute diverticulitis. No bowel obstruction is seen. The appendix is well-visualized and normal. Peritoneum: There is no intraperitoneal free air. Trace free fluid is seen in the pelvis. There is a small fat-containing umbilical hernia. Lymphadenopathy: None. Pelvic viscera: The prostate gland is enlarged and heterogeneous noting median lobe hypertrophy. The bladder is markedly distended. The bladder is filled with hyperdense debris consistent with blood fran ts. There are also foci of intraluminal gas. Foci of active extravasation are seen within the bladder lumen on image #[id number]. There are small bilateral fat-containing inguinal hernias. Skeletal structures: The skeletal structures are osteopenic. There is moderate to advanced lumbosacra l spondylosis. Laminectomy change is seen throughout the lumbar spine. No lytic or blastic lesions ar e seen. IMPRESSION: 1. The bladder is markedly distended. The bladder is filled with hyperdense debris and there are foci of intraluminal gas. This is consistent with blood clot/hemorrhage. Foci of active extravasation are identified within the bladder lumen. 2. There is mild bilateral hydroureteronephrosis, likely related to marked bladder distention. 3. Trace free fluid is seen in the pelvis. 4. Colonic diverticulosis without CT evidence of acute diverticulitis. 5. Punctate nonobstructing right renal calculus. 6. Circumferential wall thickening is noted in the distal esophagus. Correlate clinically for evidenc e of esophagitis. 7. Chronic parenchymal change at the lung bases as above. The appearance suggests a chronic infectiou s process such as atypical mycobacterium. Consider nonemergent pulmonology follow-up. 8. Additional findings as above. ACT 112: Negative or not required by law. Electronically signed by: Vega Johnston M.D. 12/03/2020 8:23 AM
[2020-12-03] MEDS: SODIUM CHLORIDE 0.9% 1000ML 1,000 ML IV SCH ×3 (08:27→23:00)
--- NOTE | 2020-12-03 09:17 | Urology Consultation ---
Date of Consultation December 03, 2020 Assessment & Plan (1) Gross hematuria: (2) Acute urinary retention: (3) Bladder cancer: 80 year-old male patient, with multiple comorbidities, admitted with acute hyperglycemia, lactic acidosis, and gross hematuria with acute urinary retention. -Plan of care reviewed with Dr. Malone. -Patient with history of bladder cancer s/p TURBT with Dr. Malone on 11/27/20. -Imaging reviewed - CT abd/pelvis with distended bladder, debris consistent with clot/hemorrhage, and mild b/l hydronephrosis. -Labs reviewed - mild elevation in wbc and creatinine from baseline. -He is afebrile. -Currently without catheter - hold on reinsertion of goel catheter for now, bladder scan PRN. -Continue supportive care and antibiotic therapy. -Keep NPO. -Plan for surgical intervention today with Dr. Brewer. -Will proceed to OR for cystoscopy, clot evacuation, possible fulguration. Risks and benefits of procedure discussed and to be reviewed with patient by Dr. Brewer. OR notified. Preoperative CXR and EKG in chart. COVID-19 negative. Patient received IV Vancomycin in ER. -Patient's and HIPAA contact, Jocy, updated via telephone. She and patient in agreement with above plan. Supervising Physician Co-Signing Physician Notes agree with above History of Present Illness Reason for Consultation: Bladder hematoma, gross hematuria, AUR, s/p TURBT History of Present Illness 80 year-old male patient with extensive past medical history including diabetes type II, COPD, anxiety/depression, A-fib, hx of CVA, hypothyroidism, GERD, gastroparesis, and bladder cancer s/p TURBT 11/27/[address] Malone who presented to the emergency room today with complaints of pain with urination. Patient reports symptoms developed over the weekend. Symptoms started with dysuria and bright red urine, no noticeable clots. Of note, he restarted his Plavix 3 days ago. Symptoms then developed into worsening hematuria, inability to void, and abdominal pain/pressure. Imaging was performed which demonstrated distended bladder with debris consistent with blood clot/hemorrhage with mild bilateral hydronephrosis. Decision was made to admit the patient for further management. Urology consulted for bladder hematoma. Patient well known to [facility] Urology service, follows with Dr. Malone. Patient history of low grade TCC with multiple recurrences. Patient status post transurethral resection of large bladder tumor with Mitomycin C on 11/27/20. Chart review: Afebrile Wbc 12.05 Hgb 12.0 Creatinine 1.43 (previously 1.29 (baseline around 1.2) on 11/21/20) Blood pressure elevated, tachycardic. Urinalysis with >30 rbc, 5-10 wbc, negative bacteria, negative nitrates Urine culture from 11/21 with coag negative staph Blood cultures pending. Patient currently on IV Vancomycin. Home Plavix is currently on hold (prior history of CVA). 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 - Infiltration of the subepithelial connective tissue is not seen. - Muscularis propria is not seen on microscopy. - The TNM stage Ta. Imaging: CT abd/pelvis with IV contrast - IMPRESSION: 1. The bladder is markedly distended. The bladder is filled with hyperdense debris and there are foci of intraluminal gas. This is consistent with blood clot/hemorrhage. Foci of active extravasation are identified within the bladder lumen. 2. There is mild bilateral hydroureteronephrosis, likely related to marked bladder distention. 3. Trace free fluid is seen in the pelvis. 4. Colonic diverticulosis without CT evidence of acute diverticulitis. 5. Punctate nonobstructing right renal calculus. 6. Circumferential wall thickening is noted in the distal esophagus. Correlate clinically for evidence of esophagitis. 7. Chronic parenchymal change at the lung bases as above. The appearance suggests a chronic infectious process such as atypical mycobacterium. Consider nonemergent pulmonology follow-up. Patient examined in emergency room. He is alert, awake and appears comfortable. He reports his symptoms started over this past weekend and progressively worsened with difficulty urinating which prompted him to come to the ER. During his ER course, he did have a catheter inserted with gentle irrigation, no significant clots removed with irrigation per patient. Goel catheter has since been removed. He does state he feels slightly better overall since arrival to hospital. Has been voiding spontaneously. No longer having abdominal pain/pressure. Mild back pain. Does report continued gross hematuria and dysuria with pain on urination. Has continued urinary frequency/urgency. Does not feel like he fully empties his bladder. No visible clots that the patient has observed. He denies fevers or chills. Denies nausea or vomiting. Reports mild dizziness. He states the last time he ate was last evening, egg sandwich for dinner. Has been drinking water this morning, no other beverages since midnight. Denies additional urologic concerns today. Allergies Allergy/AdvReac Type Severity Reaction Status Date / Time doxycycline AdvReac Intermediate nausea Verified 12/03/20 04:51 levofloxacin AdvReac Mild fidgety Verified 12/03/20 04:51 and anxiety oxycodone AdvReac Mild NAUSEA AND Verified 12/03/20 04:51 VOMITING Home Medications Medication Instructions Recorded Confirmed Type albuterol sulfate 2 puff INHALATION Q6H PRN 11/13/19 12/03/20 History clopidogrel [Plavix] 75 mg PO HS 06/04/20 12/03/20 History ondansetron HCl 4 mg tablet 4 mg PO Q8H PRN #30 tab 08/18/20 12/03/20 Rx insulin glargine 100 unit/mL (3 45 unit SQ QAM ml 09/09/20 12/03/20 History mL) subcutaneous pen multivitamin 1 tab PO QAM #30 tab 09/09/20 12/03/20 Rx quetiapine 100 mg tablet 100 mg PO ONCE HS tab 09/09/20 12/03/20 History Novolog Flexpen U-100 Insulin 100 20 unit SQ TID #30 ml NS 09/10/20 12/03/20 Rx unit/mL (3 mL) subcutaneous OneTouch Ultra Blue Test Strip #400 ea NS 09/10/20 11/06/20 Rx atorvastatin 40 mg tablet 40 mg PO HS tab 09/12/20 12/03/20 History ethambutol 400 mg tablet 1,200 mg PO .COMPLEX #36 tab 09/12/20 12/03/20 Rx levothyroxine 112 mcg tablet 112 mcg PO QAM tab 09/12/20 12/03/20 History mirtazapine 45 mg tablet 45 mg PO QPM 09/12/20 12/03/20 History olanzapine 5 mg tablet 5 mg PO HS #30 tab 09/12/20 12/03/20 Rx rifampin 300 mg capsule 600 mg PO .COMPLEX #24 cap 09/12/20 12/03/20 Rx venlafaxine 150 mg 150 mg PO HS cap 09/12/20 12/03/20 History capsule,extended release 24 hr tamsulosin 0.4 mg capsule 0.4 mg PO QPM #90 cap 10/23/20 12/03/20 Rx Advair HFA 2 puff INHALATION BID 11/20/20 12/03/20 History cholecalciferol (vitamin D3) 125 mcg PO DAILY 11/20/20 12/03/20 History ferrous sulfate 325 mg PO DAILY 11/20/20 12/03/20 History olanzapine 2.5 mg PO HS 11/20/20 12/03/20 History metoprolol succinate 50 mg 50 mg PO BID #60 tab 11/25/20 12/03/20 Rx tablet,extended release 24 hr pantoprazole 20 mg tablet,delayed 20 mg PO BID #60 tab 11/25/20 12/03/20 Rx release hydrocodone-homatropine 5 mg-1.5 5 ml PO Q6H PRN #473 ml 11/27/20 12/03/20 Rx mg/5 mL (5 mL) oral syrup sulfamethoxazole-trimethoprim 1 tab PO BID #3 tab 11/27/20 12/03/20 Rx [Bactrim DS] Patient History Medical History Afib Single episode 09/2017 in setting of acute illness. No known reoccurance. Anxiety Asthma Using rescue inhaler BID Cancer H/O BLADDER CA/TURBT- NO CHEMO OR RADIATION Chronic obstructive pulmonary disease CVA (cerebral vascular accident) 03/2017. Continues on Plavix. Depression Diabetes mellitus IDDM, uncontrolled -- A1C 11% 11/21/20. Diabetic peripheral neuropathy Very mild Dyslipidemia Gastroparesis GERD without esophagitis History of stroke Versus TIA, history is unclear, but pt continues on Clopidogrel. 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 Previously had a severe chronic cough but now feels this has mostly resolved on medications. 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 Nausea Chronic, intermittent. Poor historian Pt reports some issues with recall/memory. Pulmonary nodules Surgical History H/O lumbar discectomy History of bladder surgery TURBT= 11/01/17= GRADE VIEW 2, MAC 3.0, ETT 8.0 AT [facility] History of cataract surgery left and right History of colonoscopy (~2011) Diverticulosis History of esophagogastroduodenoscopy (EGD) History of tonsillectomy Family History Mother Family history of diabetes mellitus Myocardial infarction Father Myocardial infarction Other No family history of bleeding disorder Denies family history of Ovarian cancer Prostate cancer Breast cancer Colorectal cancer Social History Smoking Status: Former smoker Tobacco Type: Cigarettes Second Hand Exposure: No; Hx Alcohol Use: No Hx Substance Use: No Preferred Language: Hong [place]er Communication Ability: Effective Visual Impairment: No Limitations Instrument Engineer Required: No Beliefs That Will Affect Care: None Current Living Situation: Spouse Feels Safe at Home: Yes caffeine: Yes Dental Care, Regularly: Yes Physical Activity Frequency: Does not Exercise Seatbelt Use: always Sunscreen Use: No Assistive Devices: Denture - Upper Review of Systems Constitutional: as per Subjective / HPI; no fever and no chills Eyes: no problem reported Ear, Nose, Mouth, Throat: + dizziness Respiratory: + dyspnea on exertion (Chronic ); no cough Cardiovascular: no chest pain and no edema Gastrointestinal: as per Subjective / HPI Genitourinary: + as per Subjective / HPI, + dysuria and + hematuria Musculoskeletal: as per Subjective / HPI and + back pain Neurologic: as per Subjective / HPI and + dizziness Psychiatric: + anxiety Endocrine: no fatigue Hematologic / Lymphatic: + easy bleeding; no easy bruising Physical Exam Constitutional: well developed, cooperative and comfortable; no acute distress and not ill appearing Eyes: EOM intact bilaterally ENMT: Ears: no external ear abnormality Nose: no external nose abnormality Neck: normal visual inspection and trachea midline Respiratory: normal respiratory effort and able to speak in complete sentences; no respiratory distress and no audible wheezes Cardiovascular: Extremities: no calf tenderness and no edema Gastrointestinal (Abdomen): Inspection/Auscultation: abdomen normal to inspection; abdomen not distended Percussion/Palpation: abdomen soft; abdomen nontender and no guarding Musculoskeletal: Moves all extremities without difficulty. Skin: + pallor (Mild) No visible rashes, lesions, or wounds noted. Neurologic: moves all extremities and awake Psychiatric: Orientation: alert, oriented x 3 and cooperative Affect: euthymic affect Genitourinary: No CVA tenderness on exam. Urine beck red in color without visible clots in urinal. No penile or scrotal swelling. Results & Data ([facility]) Vital Signs (Past 12 Hours) Vital Signs Temp Pulse Resp BP Pulse Ox 12/03/20 06:26 112 H 24 182/92 H 96 12/03/20 06:00 118 H 12 201/116 H 96 12/03/20 05:31 118 H 24 196/103 H 93 12/03/20 05:14 120 H 20 153/89 H 94 12/03/20 04:17 36.6 C 126 H 18 153/104 H 97 PG Care Time/CCT Total # of Minutes Spent Total Time Spent with Patient: Total time spent is greater than 50% in coordination of care (as documented) at patient's floor/unit and/or counseling patient: Coding Level of Care Code 76461 Initial Inpt Care Lvl 3 Diagnoses Gross hematuria R31.0 Acute urinary retention R33.8 Bladder cancer C67.9
[2020-12-03] MEDS ORDERED: PROPOFOL IV EMULSION 10 MG/ML 20 ML VIAL IV ONE (11:22)
[2020-12-03] MEDS ORDERED: LIDOCAINE HCL 2% 2 ML VIAL/AMP(20MG/ML) INFIL ONE (11:22)
[2020-12-03] MEDS ORDERED: fentaNYL citrate 100 MCG/2 ML VIAL ONE (11:23)
--- NOTE | 2020-12-03 11:32 | Anesthesiology Consultation ---
Date of Service December 03, 2020 Assessment & Plan (1) Encounter for pre-operative examination: Chart Review Chart Review: Acceptable Risk for Surgery (bloog glucose needs more treatment through course of care but patient has blood clots and hydronephrosis and needs to be done) History Surgery Operation Date: 12/03/20 10:45 Proposed Procedures p Cystoscopy, Clot Evacuation, Possible Fulguration - Elias Brewer MD Height/Weight Height: 6 ft Weight: 66.8 kg Allergies Allergy/AdvReac Type Severity Reaction Status Date / Time doxycycline AdvReac Intermediate nausea Verified 12/03/20 04:51 levofloxacin AdvReac Mild fidgety Verified 12/03/20 04:51 and anxiety oxycodone AdvReac Mild NAUSEA AND Verified 12/03/20 04:51 VOMITING Medications Home Medications Medication Instructions Recorded Confirmed Last Taken albuterol sulfate 2 puff INHALATION Q6H PRN 11/13/19 12/03/20 07/29/20 clopidogrel [Plavix] 75 mg PO HS 06/04/20 12/03/20 11/23/20 ondansetron HCl 4 mg tablet 4 mg PO Q8H PRN #30 tab 08/18/20 12/03/20 Unknown insulin glargine 100 unit/mL (3 45 unit SQ QAM ml 09/09/20 12/03/20 11/26/20 08:00 mL) subcutaneous pen multivitamin 1 tab PO QAM #30 tab 09/09/20 12/03/20 11/26/20 08:00 quetiapine 100 mg tablet 100 mg PO ONCE HS tab 09/09/20 12/03/20 11/26/20 18:00 Novolog Flexpen U-100 Insulin 100 20 unit SQ TID #30 ml NS 09/10/20 12/03/20 11/26/20 18:00 unit/mL (3 mL) subcutaneous OneTouch Ultra Blue Test Strip #400 ea NS 09/10/20 11/06/20 Unknown atorvastatin 40 mg tablet 40 mg PO HS tab 09/12/20 12/03/20 11/26/20 18:00 ethambutol 400 mg tablet 1,200 mg PO .COMPLEX #36 tab 09/12/20 12/03/20 11/26/20 12:00 levothyroxine 112 mcg tablet 112 mcg PO QAM tab 09/12/20 12/03/20 11/27/20 04:00 mirtazapine 45 mg tablet 45 mg PO QPM 09/12/20 12/03/20 11/26/20 18:00 olanzapine 5 mg tablet 5 mg PO HS #30 tab 09/12/20 12/03/20 11/26/20 18:00 rifampin 300 mg capsule 600 mg PO .COMPLEX #24 cap 09/12/20 12/03/20 11/26/20 12:00 venlafaxine 150 mg 150 mg PO HS cap 09/12/20 12/03/20 11/26/20 18:00 capsule,extended release 24 hr tamsulosin 0.4 mg capsule 0.4 mg PO QPM #90 cap 10/23/20 12/03/20 11/26/20 18:00 Advair HFA 2 puff INHALATION BID 11/20/20 12/03/20 11/27/20 04:00 cholecalciferol (vitamin D3) 125 mcg PO DAILY 11/20/20 12/03/20 11/26/20 08:00 ferrous sulfate 325 mg PO DAILY 11/20/20 12/03/20 11/26/20 12:00 olanzapine 2.5 mg PO HS 11/20/20 12/03/20 11/26/20 18:00 metoprolol succinate 50 mg 50 mg PO BID #60 tab 11/25/20 12/03/20 11/27/20 04:00 tablet,extended release 24 hr pantoprazole 20 mg tablet,delayed 20 mg PO BID #60 tab 11/25/20 12/03/20 11/26/20 18:00 release hydrocodone-homatropine 5 mg-1.5 5 ml PO Q6H PRN #473 ml 11/27/20 12/03/20 Unknown mg/5 mL (5 mL) oral syrup sulfamethoxazole-trimethoprim 1 tab PO BID #3 tab 11/27/20 12/03/20 Unknown [Bactrim DS] Active Medications Generic Name Dose Route Start Last Admin Trade Name Freq PRN Reason Stop Dose Admin Sodium Chloride 1,000 mls @ 125 mls/hr 12/03/20 07:15 12/03/20 08:27 Nss 1000ml IV 01/02/21 07:14 125 mls/hr .Q8H NICKI Administration Past Medical History Medical History Afib Single episode 09/2017 in setting of acute illness. No known reoccurance. Anxiety Asthma Using rescue inhaler BID Cancer H/O BLADDER CA/TURBT- NO CHEMO OR RADIATION Chronic obstructive pulmonary disease CVA (cerebral vascular accident) 03/2017. Continues on Plavix. Depression Diabetes mellitus IDDM, uncontrolled -- A1C 11% 11/21/20. Diabetic peripheral neuropathy Very mild Dyslipidemia Gastroparesis GERD without esophagitis History of stroke Versus TIA, history is unclear, but pt continues on Clopidogrel. 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 Previously had a severe chronic cough but now feels this has mostly resolved on medications. 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 Nausea Chronic, intermittent. Poor historian Pt reports some issues with recall/memory. Pulmonary nodules Past Family History Family History Mother Family history of diabetes mellitus Myocardial infarction Father Myocardial infarction Other No family history of bleeding disorder Denies family history of Ovarian cancer Prostate cancer Breast cancer Colorectal cancer Past Surgical History Surgical History H/O lumbar discectomy History of bladder surgery TURBT= 11/01/17= GRADE VIEW 2, MAC 3.0, ETT 8.0 AT [facility] History of cataract surgery left and right History of colonoscopy (~2011) Diverticulosis History of esophagogastroduodenoscopy (EGD) History of tonsillectomy Social History Smoking Status: Former smoker tobacco type: cigarettes Hx Alcohol Use: No Hx Substance Use: No substance use type: does not use Physical Exam Vital Signs Last Vital Signs Temp 36.6 C 12/03/20 04:17 Pulse 89 12/03/20 09:30 Resp 19 12/03/20 09:30 BP 128/73 12/03/20 09:30 Pulse Ox 98 12/03/20 09:30 Testing Laboratory Results 12/03/20 04:29 12/03/20 04:29 PT 10.5 Seconds (9.0-12.0) 12/03/20 04:30 INR 1.0 (0.9-1.1) 12/03/20 04:30 APTT 20.4 Seconds (21.0-31.0) L 12/03/20 04:30 Urine Color Red 12/03/20 04:29 Urine Appearance Turbid (Clear) A 12/03/20 04:29 Urine pH 7.0 (4.5-7.5) 12/03/20 04:29 Ur Specific [place] 1.025 (1.000-1.030) 12/03/20 04:29 Urine Protein 3+ (Negative) H 12/03/20 04:29 Urine Glucose (UA) 3+ (Negative) H 12/03/20 04:29 Urine Ketones Negative (Negative) 12/03/20 04:29 Urine Nitrite Negative (Negative) 12/03/20 04:29 Ur Leukocyte Esterase Negative (Negative) 12/03/20 04:29 Urine RBC >30 /hpf (0-4) H 12/03/20 04:29 Urine WBC 5-10 /hpf (0-5) H 12/03/20 04:29 Ur Epithelial Cells 0-5 /lpf (0-5) 12/03/20 04:29 12/03/20 12/03/20 08:25 07:06 POC Glucose 438 H* 456 H*
[2020-12-03] MEDS ORDERED: ATROPINE SULFATE 0.1 MG/ML 10ML SYR IV PRN (11:51)
[2020-12-03] MEDS ORDERED: LABETALOL HCL IV 5 MG/ML 20ML IV PRN (11:51)
[2020-12-03] MEDS ORDERED: fentaNYL citrate 100 MCG/2 ML VIAL IV PRN (11:51)
[2020-12-03] MEDS ORDERED: ONDANSETRON INJ 2 MG/ML 2 ML VIAL IV PRN ×2 (11:51→14:32)
[2020-12-03] MEDS ORDERED: ROCURONIUM BROMIDE 10 MG/ML 5 ML VIAL IV ONE (12:00)
[2020-12-03] MEDS ORDERED: SUCCINYLCHOLINE 100MG/5ML SYR IV ONE (12:10)
[2020-12-03] MEDS ORDERED: ONDANSETRON INJ 2 MG/ML 2 ML VIAL ONE (12:10)
[2020-12-03] MEDS ORDERED: ePHEDrine sulfate 50 MG/ML SYR ONE (13:21)
[2020-12-03] MEDS ORDERED: PHENYLEPHRINE 100MCG/ML 5ML SYR ONE (13:21)
--- NOTE | 2020-12-03 13:22 | Operative Report ---
PG Post Operative Report Pre & Post Diagnosis Operation Date: 12/03/20 10:45 Pre-Op Diagnosis: URINARY SYMPTOMS/BLOOD IN URINE Post-Op Diagnosis: URINARY SYMPTOMS/BLOOD IN URINE I identified the patient and participated in the time-out.: Yes Procedure Operation Date: 12/03/20 10:45 Actual Procedures p Cystoscopy, Clot Evacuation, Fulguration(Not Applicable) - Elias Brewer MD Surgeon Elias Brewer MD [employer] None Estimated Blood Loss 5 Findings See Below Cystoscopy showed a normal anterior urethra. Prostatic fossa was mildly to moderately obstructing with kissing lateral lobes and a somewhat elevated median lobe bladder showed a large amount of clot and several areas of prior resection of his bladder tumors Specimens None Drains 20 Scottish Mondragon Anesthesia Type General Complications none Disposition Accompanied Patient To Recovery: Yes Disposition: Recovery Room Indications 80-year-old white male who is approximately 6 days post transurethral resection of several bladder tumors. He restarted his anticoagulation and then developed gross hematuria and went into clot retention. He is being brought to the op erating room for cystoscopy clot evacuation and fulguration Description of Procedure After the induction of an adequate general anesthetic and appropriate timeout patient was placed in the dorsolithotomy position. Lower abdomen genitalia were prepped with Hibiclens draped in a sterile fashion. Next using a 22 Scottish cystoscope routine cystoscopic exam was done there was a large amount of clot in the bladder the clot was irrigated free from the bladder using an [employer] evacuator there was approximately 400 cc of clot in the bladder. After removing all of the clot the cystoscope was removed and a 24 Scottish resection scope and rollerball was used to fulgurate the prior areas of resection and any bleeding points care was taken to avoid injury to either ureteral orifice. After fulgurating all of the areas patient's bladder was filled resection scope was removed. 20 Scottish Mondragon catheter was inserted per urethra into the bladder and hooked to gravity drainage. All needle sponge and instrument counts were correct at the end of the case. Patient tolerated the procedure well was taken to recovery in stable condition I attest to the content of the Intraoperative Record and any orders documented therein. Any exceptions are noted below.
[2020-12-03] MEDS ORDERED: METHYLENE BLUE 0.5% 10 ML VIAL ONE (13:23)
[2020-12-03] MEDS ORDERED: INSULIN ASPART PER UNIT ONE (13:28)
[2020-12-03] MEDS ORDERED: INSULIN ASPART PER UNIT SC STA (13:29)
[2020-12-03] MEDS ORDERED: ACETAMINOPHEN 325 MG TAB PO PRN (14:32)
--- NOTE | 2020-12-03 14:39 | Anesthesiology Progress Note ---
Date of Service December 03, 2020 Anesthesia Post Procedure Vital Signs Vital Signs: Temp Pulse Pulse Pulse Resp BP BP 12/03/20 13:55 36.4 C L 99 H 16 113/58 L 12/03/20 13:45 99 H 16 123/52 L 12/03/20 13:35 104 H 16 126/51 L 12/03/20 13:25 109 H 16 132/59 L 12/03/20 13:16 36.2 C L 104 H 16 92/69 L 12/03/20 11:25 36.6 C 105 H 18 12/03/20 11:00 101 H 26 H 166/101 H 12/03/20 10:30 95 H 20 165/102 H 12/03/20 10:00 92 H 17 152/73 H 12/03/20 09:30 89 19 128/73 12/03/20 09:00 96 H 18 141/76 H 12/03/20 08:30 93 H 15 146/73 H 12/03/20 08:00 96 H 17 134/63 12/03/20 07:42 103 H 19 150/75 H 12/03/20 07:40 18 12/03/20 07:00 106 H 21 145/79 H 12/03/20 06:26 112 H 24 182/92 H 12/03/20 06:00 118 H 12 201/116 H 12/03/20 05:31 118 H 24 196/103 H 12/03/20 05:14 120 H 20 153/89 H 12/03/20 04:17 36.6 C 126 H 18 153/104 H BP Pulse Ox 12/03/20 13:55 98 12/03/20 13:45 98 12/03/20 13:35 100 12/03/20 13:25 100 12/03/20 13:16 100 12/03/20 11:25 117/66 98 12/03/20 11:00 12/03/20 10:30 99 12/03/20 10:00 97 12/03/20 09:30 98 12/03/20 09:00 94 12/03/20 08:30 99 12/03/20 08:00 94 12/03/20 07:42 91 12/03/20 07:40 93 12/03/20 07:00 12/03/20 06:26 96 12/03/20 06:00 96 12/03/20 05:31 93 12/03/20 05:14 94 12/03/20 04:17 97 Pain Intensity Abdomen: Pain Intensity: 8 Transfer of Care Handoff Completed per policy Notes Mental Status: alert / awake / arousable Patient Amnestic to Procedure: Yes Nausea / Vomiting: adequately controlled Pain: adequately controlled Airway Patency, RR, SpO2: stable & adequate BP & HR: stable & adequate Hydration State: stable & adequate Anesthetic Complications: no major complications apparent
[2020-12-03] MEDS ORDERED: HYDROcodone/HOMATROPINE SYRUP 5MG/1.5MG 5ML UDP PO PRN (14:57)
--- NOTE | 2020-12-03 15:15 | Pharmacy Report ---
Pharmacy Abx Dose Short Note - Date of Service December 03, 2020 - Assessment & Plan Assessment 80 year old M admitted with leukocytosis, hematuria and pain with urination. h/o of bladder cancer s/p TURBT. To OR today for cystoscopy, clot evacuation. * Ordered empiric vancomycin and cefepime * Scr slightly increased from baseline. Will monitor closely. Plan Vancomycin * Patient received vancomycin 1250 mg IV this morning in the ED * Start vancomycin 1250 mg (18.7 mg/kg) IV q24h * Goal trough level: ~15 mcg/mL * Trough level will be ordered with continued therapy Pharmacy will continue to follow and will adjust dose/frequency as necessary. Thank you.
[2020-12-03] MEDS: LEVOTHYROXINE SODIUM 112 MCG TABLET PO SCH (15:22)
[2020-12-03] MEDS: INSULIN GLARGINE SOLOSTAR 100 UNITS/ML 3 ML PEN SQ SCH (15:24)
[2020-12-03] MEDS: INSULIN ASPART 100 UNITS/ML 3 ML PEN SC SCH ×3 (15:26→21:16)
[2020-12-03] MEDS: PANTOprazole 40 MG TAB PO SCH ×2 (15:30→21:15)
[2020-12-03] MEDS: METOPROLOL SUCC 50MG EXT REL TAB PO SCH ×2 (15:31→21:16)
[2020-12-03] MEDS: ETHAMBUTOL HCL 400 MG TAB PO SCH (15:31)
[2020-12-03] MEDS: rifAMPin 300 MG CAPSULE PO SCH (15:32)
--- NOTE | 2020-12-03 16:03 | History & Physical Report ---
Date of Service December 03, 2020 Assessment & Plan (1) Acute kidney failure: likely combination of obstructive and dehydration s/p cystoscopy with removal of bladder hematoma, draining beck colored urine via goel continue NSS at 125cc/hr today and tonight repeat BMP in the morning non-oliguric, making a lot of urine (2) Acute urinary retention: due to hematoma forming after TURBT several days prior s/p cystoscopy with evacuation of bladder hematoma now with goel, draining urine urology managing possible UTI, continue on Cefepime until urine culture is resulted (3) Gross hematuria: due to bleeding from recent TURBT sites Hb stable at 12 repeat tomorrow (4) Lactic acidosis: due to hypovolemia, dehydration repeat trending down (5) Acute hyperglycemia: without evidence of DKA likely from stress, missing insulin doses gave normal dose of Lantus 45 units this AM Novolog SS with correction factor 20 and carb ratio 5 sugar coming down (6) Bladder cancer: s/p TURBT, no radiation or chemotherapy (7) GERD without esophagitis: Protonix (8) 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 Malone several days ago. He said he was recovering well until last night when he had to pee all the time and every time he urinated it was extremely painful. He was urinating blood. The pain was incredibly intense, stabbing pain, would last for minutes every time he had to urinate. He did not have any fever or chills. No chest pain, no dyspnea, no abdominal pain, no nausea/vomiting. He came to the ED last night, early this morning for evaluation. He was hypertensive, afebrile. WBC 12k, hb 12, plts 309k, Cr up slightly at 1.4, electrolytes stable. Glucose markedly elevated, > 500, he admitted to not taking his insulin as prescribed. Case was discussed with urology, they requested to keep patient NPO and ordered no goel to be placed, planned for cystoscopy. Allergies Allergy/AdvReac Type Severity Reaction Status Date / Time doxycycline AdvReac Intermediate nausea Verified 12/03/20 04:51 levofloxacin AdvReac Mild fidgety Verified 12/03/20 04:51 and anxiety oxycodone AdvReac Mild NAUSEA AND Verified 12/03/20 04:51 VOMITING Home Medications Medication Instructions Recorded Confirmed Type albuterol sulfate 2 puff INHALATION Q6H PRN 11/13/19 12/03/20 History clopidogrel [Plavix] 75 mg PO HS 06/04/20 12/03/20 History ondansetron HCl 4 mg tablet 4 mg PO Q8H PRN #30 tab 08/18/20 12/03/20 Rx insulin glargine 100 unit/mL (3 45 unit SQ QAM ml 09/09/20 12/03/20 History mL) subcutaneous pen multivitamin 1 tab PO QAM #30 tab 09/09/20 12/03/20 Rx quetiapine 100 mg tablet 100 mg PO ONCE HS tab 09/09/20 12/03/20 History Novolog Flexpen U-100 Insulin 100 20 unit SQ TID #30 ml NS 09/10/20 12/03/20 Rx unit/mL (3 mL) subcutaneous OneTouch Ultra Blue Test Strip #400 ea NS 09/10/20 11/06/20 Rx atorvastatin 40 mg tablet 40 mg PO HS tab 09/12/20 12/03/20 History ethambutol 400 mg tablet 1,200 mg PO .COMPLEX #36 tab 09/12/20 12/03/20 Rx levothyroxine 112 mcg tablet 112 mcg PO QAM tab 09/12/20 12/03/20 History mirtazapine 45 mg tablet 45 mg PO QPM 09/12/20 12/03/20 History olanzapine 5 mg tablet 5 mg PO HS #30 tab 09/12/20 12/03/20 Rx rifampin 300 mg capsule 600 mg PO .COMPLEX #24 cap 09/12/20 12/03/20 Rx venlafaxine 150 mg 150 mg PO HS cap 09/12/20 12/03/20 History capsule,extended release 24 hr tamsulosin 0.4 mg capsule 0.4 mg PO QPM #90 cap 10/23/20 12/03/20 Rx Advair HFA 2 puff INHALATION BID 11/20/20 12/03/20 History cholecalciferol (vitamin D3) 125 mcg PO DAILY 11/20/20 12/03/20 History ferrous sulfate 325 mg PO DAILY 11/20/20 12/03/20 History olanzapine 2.5 mg PO HS 11/20/20 12/03/20 History metoprolol succinate 50 mg 50 mg PO BID #60 tab 11/25/20 12/03/20 Rx tablet,extended release 24 hr pantoprazole 20 mg tablet,delayed 20 mg PO BID #60 tab 11/25/20 12/03/20 Rx release hydrocodone-homatropine 5 mg-1.5 5 ml PO Q6H PRN #473 ml 11/27/20 12/03/20 Rx mg/5 mL (5 mL) oral syrup sulfamethoxazole-trimethoprim 1 tab PO BID #3 tab 11/27/20 12/03/20 Rx [Bactrim DS] Past Med/Surg History Medical History Afib Single episode 09/2017 in setting of acute illness. No known reoccurance. Anxiety Asthma Using rescue inhaler BID Cancer H/O BLADDER CA/TURBT- NO CHEMO OR RADIATION Chronic obstructive pulmonary disease CVA (cerebral vascular accident) 03/2017. Continues on Plavix. Depression Diabetes mellitus IDDM, uncontrolled -- A1C 11% 11/21/20. Diabetic peripheral neuropathy Very mild Dyslipidemia Gastroparesis GERD without esophagitis History of stroke Versus TIA, history is unclear, but pt continues on Clopidogrel. 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 Previously had a severe chronic cough but now feels this has mostly resolved on medications. 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 Nausea Chronic, intermittent. Poor historian Pt reports some issues with recall/memory. Pulmonary nodules Surgical History H/O lumbar discectomy History of bladder surgery TURBT= 11/01/17= [facility] 2, MAC 3.0, ETT 8.0 AT [facility] History of cataract surgery left and right History of colonoscopy (~2011) Diverticulosis History of esophagogastroduodenoscopy (EGD) History of tonsillectomy Family History Mother Family history of diabetes mellitus Myocardial infarction Father Myocardial infarction Other No family history of bleeding disorder Denies family history of Ovarian cancer Prostate cancer Breast cancer Colorectal cancer Social History Smoking Status: Former smoker Tobacco Type: Cigarettes Second Hand Exposure: No; Hx Alcohol Use: No Hx Substance Use: No Preferred Language: Latvian Communication Ability: Effective Visual Impairment: No Limitations [employer] Agent Required: No Beliefs That Will Affect Care: None Current Living Situation: Spouse Feels Safe at Home: Yes caffeine: Yes Dental Care, Regularly: Yes Physical Activity Frequency: Does not Exercise Seatbelt Use: always Sunscreen Use: No Assistive Devices: Walker Review of Systems Review of Systems: All systems reviewed & are unremarkable except as noted in HPI & below Constitutional: + fatigue and + weakness; no fever, no chills and no sweats Respiratory: no cough, no dyspnea and no dyspnea on exertion Cardiovascular: no chest pain, no palpitations, no syncope and no edema Gastrointestinal: no abdominal pain, no nausea, no vomiting, no constipation and no diarrhea/loose stools Genitourinary: + dysuria, + difficulty urinating, + urinary frequency and + hematuria; no flank pain Musculoskeletal: no back pain, no joint pain and no myalgia Integumentary: no rash and no erythema Neurologic: no unsteadiness, no falls, no paralysis, no numbness, no headache(s) and no confusion Psychiatric: + anxiety Physical Exam Constitutional: well developed, well nourished, + in distress (due to pain from bladder) and + diaphoretic; no altered mental status ENMT: Mouth: + dry oral mucous membranes Neck: trachea midline, no thyromegaly Respiratory: normal respiratory effort, lungs clear to auscultation Cardiovascular: RRR, no murmur, no edema Gastrointestinal (Abdomen): normal bowel sounds, soft, nontender, no hepatosplenomegaly Musculoskeletal: no cyanosis or clubbing, extremities motor strength 5/5 Skin: no rashes, warm and dry Neurologic: patellar DTR's 2+ bilat, sensation intact and PERRL, EOMI, accommodation nl, no face palsy, no dysarthria Psychiatric: A+Ox3, euthymic affect Lymphatic: no cervical or axillary lymphadenopathy Results & Data Results & Data ([facility]) Vital Signs (Past 12 Hours) Vital Signs Temp Pulse Pulse Pulse Resp BP BP 12/03/20 15:06 36.4 C L 94 H 20 104/62 12/03/20 14:45 36.5 C 95 H 20 111/64 12/03/20 14:35 36.5 C 96 H 20 102/70 12/03/20 13:55 36.4 C L 99 H 16 113/58 L 12/03/20 13:45 99 H 16 123/52 L 12/03/20 13:35 104 H 16 126/51 L 12/03/20 13:25 109 H 16 132/59 L 12/03/20 13:16 36.2 C L 104 H 16 92/69 L 12/03/20 11:25 36.6 C 105 H 18 12/03/20 11:00 101 H 26 H 166/101 H 12/03/20 10:30 95 H 20 165/102 H 12/03/20 10:00 92 H 17 152/73 H 12/03/20 09:30 89 19 128/73 12/03/20 09:00 96 H 18 141/76 H 12/03/20 08:30 93 H 15 146/73 H 12/03/20 08:00 96 H 17 134/63 12/03/20 07:42 103 H 19 150/75 H 12/03/20 07:40 18 12/03/20 07:00 106 H 21 145/79 H 12/03/20 06:26 112 H 24 182/92 H 12/03/20 06:00 118 H 12 201/116 H 12/03/20 05:31 118 H 24 196/103 H 12/03/20 05:14 120 H 20 153/89 H 12/03/20 04:17 36.6 C 126 H 18 153/104 H BP Pulse Ox 12/03/20 15:06 97 12/03/20 14:45 97 12/03/20 14:35 97 12/03/20 13:55 98 12/03/20 13:45 98 12/03/20 13:35 100 12/03/20 13:25 100 12/03/20 13:16 100 12/03/20 11:25 117/66 98 12/03/20 11:00 12/03/20 10:30 99 12/03/20 10:00 97 12/03/20 09:30 98 12/03/20 09:00 94 12/03/20 08:30 99 12/03/20 08:00 94 12/03/20 07:42 91 12/03/20 07:40 93 12/03/20 07:00 12/03/20 06:26 96 12/03/20 06:00 96 12/03/20 05:31 93 12/03/20 05:14 94 12/03/20 04:17 97 Laboratory Results Laboratory Results - last 24 hr 12/03/20 12/03/20 12/03/20 04:29 04:29 04:29 WBC 12.05 H RBC 4.06 L Hgb 12.0 L Hct 34.7 L MCV 85.5 MCH 29.6 MCHC 34.6 RDW Std Deviation 42.5 RDW Coeff of Yulissa 13.8 Plt Count 309 MPV 9.0 Immature Gran % (Auto) 0.2 Neut % (Auto) 80.0 Lymph % (Auto) 10.1 [place] % (Auto) 8.7 Eos % (Auto) 0.7 Baso % (Auto) 0.3 Neut # (Auto) 9.62 H Lymph # (Auto) 1.22 [place] # (Auto) 1.05 H Eos # (Auto) 0.09 Baso # (Auto) 0.04 Immature Gran # (Auto) 0.03 H RBC Morphology Unremarkable PT INR APTT PTT Ratio VBG pH VBG pCO2 VBG pO2 VBG HCO3 VBG O2 Saturation VBG Base Excess Barometric Pressure Sodium 136 Potassium 4.6 Chloride 103 Carbon Dioxide 23 Anion Gap 10.0 BUN 16 Creatinine 1.43 H Est Cr Clr Drug Dosing 39.6 Est GFR ( Amer) 53.6 Est GFR (Non-Af Amer) 46.3 BUN/Creatinine Ratio 10.9 Glucose 529 H* POC Glucose Lactate Calcium 9.1 Magnesium Total Bilirubin Direct Bilirubin AST ALT Alkaline Phosphatase Troponin I Total Protein Albumin Lipase Beta-Hydroxybutyric Acd 6.30 H TSH Urine Color Red Urine Appearance Turbid A Urine pH 7.0 Ur Specific [place] 1.025 Urine Protein 3+ H Urine Glucose (UA) 3+ H Urine Ketones Negative Urine Blood 3+ H Urine Nitrite Negative Urine Bilirubin Negative Urine Urobilinogen Negative Ur Leukocyte Esterase Negative Urine RBC >30 H Urine WBC 5-10 H Ur Epithelial Cells 0-5 Urine Bacteria Negative COVID-19 Eval Order SARS-CoV-2, RNA, NAAT 12/03/20 12/03/20 12/03/20 04:30 05:20 05:20 WBC RBC Hgb Hct MCV MCH MCHC RDW Std Deviation RDW Coeff of Yulissa Plt Count MPV Immature Gran % (Auto) Neut % (Auto) Lymph % (Auto) [place] % (Auto) Eos % (Auto) Baso % (Auto) Neut # (Auto) Lymph # (Auto) [place] # (Auto) Eos # (Auto) Baso # (Auto) Immature Gran # (Auto) RBC Morphology PT 10.5 INR 1.0 APTT 20.4 L PTT Ratio 0.8 VBG pH VBG pCO2 VBG pO2 VBG HCO3 VBG O2 Saturation VBG Base Excess Barometric Pressure Sodium Potassium Chloride Carbon Dioxide Anion Gap BUN Creatinine Est Cr Clr Drug Dosing Est GFR ( Amer) Est GFR (Non-Af Amer) BUN/Creatinine Ratio Glucose POC Glucose Lactate Calcium Magnesium Total Bilirubin Direct Bilirubin AST ALT Alkaline Phosphatase Troponin I Total Protein Albumin Lipase Beta-Hydroxybutyric Acd TSH Urine Color Urine Appearance Urine pH Ur Specific [place] Urine Protein Urine Glucose (UA) Urine Ketones Urine Blood Urine Nitrite Urine Bilirubin Urine Urobilinogen Ur Leukocyte Esterase Urine RBC Urine WBC Ur Epithelial Cells Urine Bacteria COVID-19 Eval [facility] SARS-CoV-2, RNA, NAAT NEGATIVE 12/03/20 12/03/20 12/03/20 06:11 06:11 06:11 WBC RBC Hgb Hct MCV MCH MCHC RDW Std Deviation RDW Coeff of Yulissa Plt Count MPV Immature Gran % (Auto) Neut % (Auto) Lymph % (Auto) [place] % (Auto) Eos % (Auto) Baso % (Auto) Neut # (Auto) Lymph # (Auto) [place] # (Auto) Eos # (Auto) Baso # (Auto) Immature Gran # (Auto) RBC Morphology PT INR APTT PTT Ratio VBG pH 7.39 VBG pCO2 39 VBG pO2 33 VBG HCO3 23 VBG O2 Saturation 63.0 VBG Base Excess -2.0 Barometric Pressure 724.3 Sodium Potassium Chloride Carbon Dioxide Anion Gap BUN Creatinine Est Cr Clr Drug Dosing Est GFR ( Amer) Est GFR (Non-Af Amer) BUN/Creatinine Ratio Glucose POC Glucose Lactate 3.2 H* Calcium Magnesium 1.7 L Total Bilirubin 0.4 Direct Bilirubin 0.1 AST 12 L ALT 21 Alkaline Phosphatase 84 Troponin I < 0.015 Total Protein 6.5 Albumin 3.3 L Lipase 115 Beta-Hydroxybutyric Acd TSH 5.730 H Urine Color Urine Appearance Urine pH Ur Specific [place] Urine Protein Urine Glucose (UA) Urine Ketones Urine Blood Urine Nitrite Urine Bilirubin Urine Urobilinogen Ur Leukocyte Esterase Urine RBC Urine WBC Ur Epithelial Cells Urine Bacteria COVID-19 Eval Order SARS-CoV-2, RNA, NAAT 12/03/20 12/03/20 12/03/20 07:06 08:25 08:41 WBC RBC Hgb Hct MCV MCH MCHC RDW Std Deviation RDW Coeff of Yulissa Plt Count MPV Immature Gran % (Auto) Neut % (Auto) Lymph % (Auto) [place] % (Auto) Eos % (Auto) Baso % (Auto) Neut # (Auto) Lymph # (Auto) [place] # (Auto) Eos # (Auto) Baso # (Auto) Immature Gran # (Auto) RBC Morphology PT INR APTT PTT Ratio VBG pH VBG pCO2 VBG pO2 VBG HCO3 VBG O2 Saturation VBG Base Excess Barometric Pressure Sodium Potassium Chloride Carbon Dioxide Anion Gap BUN Creatinine Est Cr Clr Drug Dosing Est GFR ( Amer) Est GFR (Non-Af Amer) BUN/Creatinine Ratio Glucose POC Glucose 456 H* 438 H* Lactate 2.0 Calcium Magnesium Total Bilirubin Direct Bilirubin AST ALT Alkaline Phosphatase Troponin I Total Protein Albumin Lipase Beta-Hydroxybutyric Acd TSH Urine Color Urine Appearance Urine pH Ur Specific [place] Urine Protein Urine Glucose (UA) Urine Ketones Urine Blood Urine Nitrite Urine Bilirubin Urine Urobilinogen Ur Leukocyte Esterase Urine RBC Urine WBC Ur Epithelial Cells Urine Bacteria COVID-19 Eval Order SARS-CoV-2, RNA, NAAT 12/03/20 12/03/20 12/03/20 11:44 13:27 13:55 WBC RBC Hgb Hct MCV MCH MCHC RDW Std Deviation RDW Coeff of Yulissa Plt Count MPV Immature Gran % (Auto) Neut % (Auto) Lymph % (Auto) [place] % (Auto) Eos % (Auto) Baso % (Auto) Neut # (Auto) Lymph # (Auto) [place] # (Auto) Eos # (Auto) Baso # (Auto) Immature Gran # (Auto) RBC Morphology PT INR APTT PTT Ratio VBG pH VBG pCO2 VBG pO2 VBG HCO3 VBG O2 Saturation VBG Base Excess Barometric Pressure Sodium Potassium Chloride Carbon Dioxide Anion Gap BUN Creatinine Est Cr Clr Drug Dosing Est GFR ( Amer) Est GFR (Non-Af Amer) BUN/Creatinine Ratio Glucose POC Glucose 366 H* 393 H* 376 H* Lactate Calcium Magnesium Total Bilirubin Direct Bilirubin AST ALT Alkaline Phosphatase Troponin I Total Protein Albumin Lipase Beta-Hydroxybutyric Acd TSH Urine Color Urine Appearance Urine pH Ur Specific [place] Urine Protein Urine Glucose (UA) Urine Ketones Urine Blood Urine Nitrite Urine Bilirubin Urine Urobilinogen Ur Leukocyte Esterase Urine RBC Urine WBC Ur Epithelial Cells Urine Bacteria COVID-19 Eval Order SARS-CoV-2, RNA, NAAT 12/03/20 15:07 WBC RBC Hgb Hct MCV MCH MCHC RDW Std Deviation RDW Coeff of Yulissa Plt Count MPV Immature Gran % (Auto) Neut % (Auto) Lymph % (Auto) [place] % (Auto) Eos % (Auto) Baso % (Auto) Neut # (Auto) Lymph # (Auto) [place] # (Auto) Eos # (Auto) Baso # (Auto) Immature Gran # (Auto) RBC Morphology PT INR APTT PTT Ratio VBG pH VBG pCO2 VBG pO2 VBG HCO3 VBG O2 Saturation VBG Base Excess Barometric Pressure Sodium Potassium Chloride Carbon Dioxide Anion Gap BUN Creatinine Est Cr Clr Drug Dosing Est GFR ( Amer) Est GFR (Non-Af Amer) BUN/Creatinine Ratio Glucose POC Glucose 298 H Lactate Calcium Magnesium Total Bilirubin Direct Bilirubin AST ALT Alkaline Phosphatase Troponin I Total Protein Albumin Lipase Beta-Hydroxybutyric Acd TSH Urine Color Urine Appearance Urine pH Ur Specific [place] Urine Protein Urine Glucose (UA) Urine Ketones Urine Blood Urine Nitrite Urine Bilirubin Urine Urobilinogen Ur Leukocyte Esterase Urine RBC Urine WBC Ur Epithelial Cells Urine Bacteria COVID-19 Eval Order SARS-CoV-2, RNA, NAAT Medications Administered Current Inpatient Medications Acetaminophen (Acetaminophen 325 Mg Tab) 650 mg PO Q4H PRN PRN Reason: Pain or Fever Stop: 01/02/21 14:31 Atorvastatin Calcium (Atorvastatin 40 Mg Tab) 40 mg PO HS [facility] Stop: 01/02/21 20:59 Ethambutol HCl (Ethambutol Hcl 400 Mg Tab) 1,200 mg PO [id number] [facility] Stop: 01/02/21 14:31 Last Admin: 12/03/20 15:31 Dose: 1,200 mg Documented by: Fluticasone/Vilanterol (Fluticasone/Vilanterol 200/25mcg 14 Puffs/Inhaler) 1 puffs INH DAILY [facility]; Protocol Stop: 01/03/21 08:59 Hydrocodone Bit/Homatropine Methylb (Hydrocodone/Homatropine Syrup 5mg/1.5mg 5ml Udp) 5 ml PO Q6H PRN PRN Reason: Cough Stop: 12/17/20 14:56 Sodium Chloride (Nss 1000ml) 1,000 mls @ 125 mls/hr IV .Q8H [facility] Stop: 01/02/21 07:14 Last Admin: 12/03/20 14:49 Dose: 125 mls/hr Documented by: Cefepime HCl 2,000 mg/ Syringe 20 mls @ 5 mls/min IV Q24H [facility]; Protocol Stop: 12/13/20 06:59 Vancomycin HCl 1,250 mg/ (Sodium Chloride) 275 mls @ 200 mls/hr IV Q24H [facility]; Protocol Stop: 12/13/20 05:59 Insulin Aspart (Insulin Aspart 100 Units/Ml 3 Ml Pen) 0 units SC ACHS [facility] Stop: 01/02/21 16:29 Last Admin: 12/03/20 15:26 Dose: 7 units Documented by: Insulin Glargine (Insulin Glargine Solostar 100 Units/Ml 3 Ml Pen) 45 units SQ QAM [facility] Stop: 01/02/21 14:59 Last Admin: 12/03/20 15:24 Dose: 45 units Documented by: Levothyroxine Sodium (Levothyroxine Sodium 112 Mcg Tablet) 112 mcg PO DAILYBB [facility] Stop: 01/02/21 15:29 Last Admin: 12/03/20 15:22 Dose: 112 mcg Documented by: Metoprolol Succinate (Metoprolol Succ 50mg Ext Rel Tab) 50 mg PO BID [facility] Stop: 01/02/21 14:59 Last Admin: 12/03/20 15:31 Dose: 50 mg Documented by: Mirtazapine (Mirtazapine Soltab 15 Mg) 45 mg PO QPM [facility] Stop: 01/02/21 20:59 Miscellaneous Information (Vancomycin Consult Active) 1 ea N/A UD PRN PRN Reason: Consult Stop: 01/02/21 07:00 Olanzapine (Olanzapine 2.5 Mg Tab) 2.5 mg PO HS [facility] Stop: 01/02/21 20:59 Olanzapine (Olanzapine 5 Mg Tablet) 5 mg PO [facility] Stop: 01/02/21 20:59 Ondansetron HCl (Ondansetron Inj 2 Mg/Ml 2 Ml Vial) 4 mg IV Q6H PRN PRN Reason: Nausea Stop: 01/02/21 14:31 Pantoprazole Sodium (Pantoprazole 40 Mg Tab) 40 mg PO BID [facility] Stop: 01/02/21 14:59 Last Admin: 12/03/20 15:30 Dose: 40 mg Documented by: Quetiapine Fumarate (Quetiapine Fumarate 25 Mg Tablet) 50 mg PO [facility] Stop: 01/02/21 20:59 Rifampin (Rifampin 300 Mg Capsule) 600 mg PO [id number] [facility] Stop: 01/02/21 14:59 Last Admin: 12/03/20 15:32 Dose: 600 mg Documented by: Tamsulosin HCl (Tamsulosin Hcl 0.4 Mg Cap) 0.4 mg PO QPM [facility] Stop: 01/02/21 20:59 Venlafaxine HCl (Venlafaxine Hcl Xr 150 Mg Capxr) 150 mg PO [facility] Stop: 01/02/21 20:59 Code Status & VTE Plan VTE Prophylaxis Plan VTE Prophylaxis will be ordered: Yes PG Care Time/CCT Total # of Minutes Spent Total Time Spent with Patient: Total time spent is greater than 50% in coordination of care (as documented) at patient's floor/unit and/or counseling patient: Coding Level of Care Code 64532 Initial Inpt Care Lvl 3 Diagnoses Acute kidney failure N17.9 Acute urinary retention R33.8 Gross hematuria R31.0 Lactic acidosis E87.2 Acute hyperglycemia R73.9 Bladder cancer C67.9 GERD without esophagitis K21.9 [place]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
--- NOTE | 2020-12-03 16:06 | Electrocardiogram Report ---
Test Reason : Blood Pressure : / mmHG Vent. Rate : 121 BPM Atrial Rate : 121 BPM P-R Int : 164 ms QRS Dur : 074 ms QT Int : 368 ms P-R-T Axes : 081 -35 086 degrees QTc Int : 522 ms Poor data quality, interpretation may be adversely affected Sinus tachycardia Left axis deviation Nonspecific ST and T wave abnormality Abnormal ECG When compared with ECG of 29-JUL-2020 13:32, Vent. rate has increased BY 50 BPM Confirmed by Fritz Humphrey ([id number]) on 12/03/2020 4:06:14 PM Referred By: REFERRED SELF Confirmed By:Fritz Humphrey
[2020-12-03] MEDS: VENLAFAXINE HCL XR 150 MG CAPXR PO SCH (21:15)
[2020-12-03] MEDS: OLANZapine 5 MG TABLET PO SCH (21:15)
[2020-12-03] MEDS: QUEtiapine FUMARATE 25 MG TABLET PO SCH (21:15)
[2020-12-03] MEDS: ATORVASTATIN 40 MG TAB PO SCH (21:15)
[2020-12-03] MEDS: TAMSULOSIN HCL 0.4 MG CAP PO SCH (21:15)
[2020-12-03] MEDS: MIRTAZAPINE SOLTAB 15 MG PO SCH (21:15)
[2020-12-03] MEDS: OLANZAPINE 2.5 MG TAB PO SCH (21:15)
[2020-12-04] MEDS: LEVOTHYROXINE SODIUM 112 MCG TABLET PO SCH (05:47)
[2020-12-04] MEDS ORDERED: VANCOMYCIN HCL 1,250 MG in SODIUM CHLORIDE 0.9% 250 ML IV SCH (06:00)
[2020-12-04] MEDS ORDERED: CEFEPIME 2,000 MG in SYRINGE 0 ML IV SCH (07:00)
[2020-12-04] MEDS: SODIUM CHLORIDE 0.9% 1000ML 1,000 ML IV SCH ×2 (07:07→16:37)
[2020-12-04 07:26] LABS: Hematocrit (blood only) 22.5 % (42-52); Hemoglobin 7.7 g/dL (14.0-18.0); Mean Corpuscular Hemoglobin 29.7 pg (25-34); Mean Corpuscular Hgb Conc 34.2 g/dL (32-36); Mean Corpuscular Volume 86.9 fL (80-100); Mean Platelet Volume 8.6 fL (7.4-10.4); Platelet Count 161 K/uL (130-400); RDW Coefficient of Variation 14.2 % (11.5-14.5); RDW Standard Deviation 44.8 fL (36.4-46.3); Red Blood Count 2.59 M/uL (4.7-6.1); White Blood Count 5.77 K/uL (4.8-10.8)
[2020-12-04] MEDS ORDERED: SODIUM CHLORIDE 0.9% 250 ML IV PRN (07:29)
[2020-12-04 07:39] LABS: Basophils # (auto) 0.01 K/uL (0-0.2); Basophils % (auto) 0.2 %; Eosinophils # (auto) 0.24 K/uL (0-0.5); Eosinophils % (auto) 4.2 %; Immature Granulocytes # (auto) 0.01 K/uL (0.00-0.02); Immature Granulocytes % (auto) 0.2 %; Lymphocytes # (auto) 0.74 K/uL (1.2-3.4); Lymphocytes % (auto) 12.8 %; Monocytes # (auto) 0.72 K/uL (0.11-0.59); Monocytes % (auto) 12.5 %; Neutrophils # (auto) 4.05 K/uL (1.4-6.5); Neutrophils % (auto) 70.1 %
[2020-12-04 07:54] LABS: BUN Creatinine Ratio 11.5 (10-20); Calcium 7.2 mg/dl (8.5-10.1); Creatinine Clr Calc Pharmacy 67.5 ml/min; Est GFR (African American) 90.2; Est GFR (Non-African American) 77.8; Magnesium 1.7 mg/dl (1.8-2.4); Potassium 3.9 mmol/L (3.5-5.1)
[2020-12-04] MEDS: INSULIN ASPART 100 UNITS/ML 3 ML PEN SC SCH ×4 (09:00→20:10)
[2020-12-04] MEDS: INSULIN GLARGINE SOLOSTAR 100 UNITS/ML 3 ML PEN SQ SCH (09:02)
[2020-12-04] MEDS: METOPROLOL SUCC 50MG EXT REL TAB PO SCH ×2 (09:03→20:10)
[2020-12-04] MEDS: PANTOprazole 40 MG TAB PO SCH ×2 (09:04→20:12)
[2020-12-04] MEDS: FLUTICASONE/VILANTEROL 200/25MCG 14 PUFFS/INHALER INH SCH (09:06)
--- NOTE | 2020-12-04 09:36 | Hospitalist Progress Note ---
Date of Service December 04, 2020 Assessment & Plan (1) Acute kidney failure: likely combination of obstructive and dehydration s/p cystoscopy with removal of bladder hematoma, draining beck colored urine via goel, now urine is dark/clear treated with IV fluids initially, will stop this morning Cr down to 0.9, KEN resolved non-oliguric, making a lot of urine (2) Acute urinary retention: due to hematoma forming after TURBT several days prior s/p cystoscopy with evacuation of bladder hematoma on 12/03 now with goel, draining urine Dr. Malone would like to see clear urine for a day would like to perform voiding trial prior to discharge possible UTI, no cultures, will stop Cefepime after tomorrow (3) Gross hematuria: due to bleeding from recent TURBT sites Hb down to 7.5, repeat is 8.7 no need for transfusion hold Plavix (4) Lactic acidosis: due to hypovolemia, dehydration repeat trending down (5) Acute hyperglycemia: without evidence of DKA likely from stress, missing insulin doses gave normal dose of Lantus 45 units this AM Novolog SS with correction factor 20 and carb ratio 5 sugars stable today, no levels > 200 (6) Bladder cancer: s/p TURBT, no radiation or chemotherapy (7) GERD without esophagitis: Protonix (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 (9) Anxiety: mood stable now that he has relief continue home regimen Admission and Anticipated Discharge Date Admission Date: December 03, 2020 Subjective patient says he feels well today, no pain goel in place draining dark urine, no malou blood no nausea, no fever, he ate eggs and toast this morning, great appetite no fever/chills, no chest pain he says he always has some dyspnea on exertion, no dyspnea at rest labs this morning, Hb is down to 7.7 Cr down to 0.93, K 3.9, Na 145, mag 1.7 stop fluids, give Mag IV Review of Systems Review of Systems: All systems reviewed & are unremarkable except as noted in Subjective Constitutional: no fever, no chills, no sweats, no fatigue and no weakness Respiratory: + dyspnea on exertion; no cough and no dyspnea Cardiovascular: no chest pain, no palpitations and no edema Gastrointestinal: no abdominal pain, no nausea, no vomiting, no constipation and no diarrhea/loose stools Genitourinary: + problem reported (goel) Physical Exam Constitutional: well developed and well nourished; no acute distress and no altered mental status Neck: trachea midline, no thyromegaly Respiratory: normal respiratory effort, lungs clear to auscultation Cardiovascular: RRR, no murmur, no edema Gastrointestinal (Abdomen): normal bowel sounds, soft, nontender, no hepatosplenomegaly Musculoskeletal: no cyanosis or clubbing, extremities motor strength 5/5 Skin: no rashes, warm and dry Neurologic: patellar DTR's 2+ bilat, sensation intact and PERRL, EOMI, accommodation nl, no face palsy, no dysarthria Psychiatric: A+Ox3, euthymic affect Lymphatic: no cervical or axillary lymphadenopathy Results & Data Results & Data ([facility]) Vital Signs (Past 12 Hours) Vital Signs Temp Pulse Pulse Pulse Resp BP BP 12/04/20 07:40 78 105/57 L 12/04/20 07:28 36.7 C 81 20 92/53 L 12/04/20 03:34 36.7 C 86 20 96/61 L 12/04/20 00:04 75 12/03/20 22:54 36.8 C 81 20 95/51 L Pulse Ox 12/04/20 07:40 12/04/20 07:28 94 12/04/20 03:34 90 12/04/20 00:04 12/03/20 22:54 95 Laboratory Results Laboratory Results - last 24 hr 12/03/20 12/03/20 12/04/20 08:42 23:37 07:05 WBC 5.77 RBC 2.59 L Hgb 7.7 L D Hct 22.5 L MCV 86.9 MCH 29.7 MCHC 34.2 RDW Std Deviation 44.8 RDW Coeff of Yulissa 14.2 Plt Count 161 MPV 8.6 Immature Gran % (Auto) 0.2 Neut % (Auto) 70.1 Lymph % (Auto) 12.8 Ponce % (Auto) 12.5 Eos % (Auto) 4.2 Baso % (Auto) 0.2 Neut # (Auto) 4.05 Lymph # (Auto) 0.74 L Ponce # (Auto) 0.72 H Eos # (Auto) 0.24 Baso # (Auto) 0.01 Immature Gran # (Auto) 0.01 Sodium Potassium Chloride Carbon Dioxide Anion Gap BUN Creatinine Est Cr Clr Drug Dosing Est GFR ( Amer) Est GFR (Non-Af Amer) BUN/Creatinine Ratio Glucose POC Glucose 79 Calcium Magnesium Blood Type O Positive Blood Type Recheck Antibody Screen NEGATIVE Crossmatch See Detail 12/04/20 12/04/20 12/04/20 07:05 07:05 07:23 WBC RBC Hgb Hct MCV MCH MCHC RDW Std Deviation RDW Coeff of Yulissa Plt Count MPV Immature Gran % (Auto) Neut % (Auto) Lymph % (Auto) Ponce % (Auto) Eos % (Auto) Baso % (Auto) Neut # (Auto) Lymph # (Auto) Ponce # (Auto) Eos # (Auto) Baso # (Auto) Immature Gran # (Auto) Sodium 145 D Potassium 3.9 D Chloride 115 H Carbon Dioxide 26 Anion Gap 4.0 BUN 11 Creatinine 0.93 D Est Cr Clr Drug Dosing 67.5 Est GFR ( Amer) 90.2 Est GFR (Non-Af Amer) 77.8 BUN/Creatinine Ratio 11.5 Glucose 119 H POC Glucose 164 H Calcium 7.2 L D Magnesium 1.7 L Blood Type Blood Type Recheck O Positive Antibody Screen Crossmatch 12/04/20 12/04/20 12/04/20 11:22 13:53 16:20 WBC RBC Hgb 8.7 L Hct 25.5 L MCV MCH MCHC RDW Std Deviation RDW Coeff of Yulissa Plt Count MPV Immature Gran % (Auto) Neut % (Auto) Lymph % (Auto) Ponce % (Auto) Eos % (Auto) Baso % (Auto) Neut # (Auto) Lymph # (Auto) Ponce # (Auto) Eos # (Auto) Baso # (Auto) Immature Gran # (Auto) Sodium Potassium Chloride Carbon Dioxide Anion Gap BUN Creatinine Est Cr Clr Drug Dosing Est GFR ( Amer) Est GFR (Non-Af Amer) BUN/Creatinine Ratio Glucose POC Glucose 175 H 102 H Calcium Magnesium Blood Type Blood Type Recheck Antibody Screen Crossmatch 12/04/20 20:01 WBC RBC Hgb Hct MCV MCH MCHC RDW Std Deviation RDW Coeff of Yulissa Plt Count MPV Immature Gran % (Auto) Neut % (Auto) Lymph % (Auto) Ponce % (Auto) Eos % (Auto) Baso % (Auto) Neut # (Auto) Lymph # (Auto) Ponce # (Auto) Eos # (Auto) Baso # (Auto) Immature Gran # (Auto) Sodium Potassium Chloride Carbon Dioxide Anion Gap BUN Creatinine Est Cr Clr Drug Dosing Est GFR ( Amer) Est GFR (Non-Af Amer) BUN/Creatinine Ratio Glucose POC Glucose 106 H Calcium Magnesium Blood Type Blood Type Recheck Antibody Screen Crossmatch Medications Administered Current Inpatient Medications Acetaminophen (Acetaminophen 325 Mg Tab) 650 mg PO Q4H PRN PRN Reason: Pain or Fever Stop: 01/02/21 14:31 Atorvastatin Calcium (Atorvastatin 40 Mg Tab) 40 mg PO HS NICKI Stop: 01/02/21 20:59 Last Admin: 12/04/20 20:10 Dose: 40 mg Documented by: Ethambutol HCl (Ethambutol Hcl 400 Mg Tab) 1,200 mg PO MoWeFr@1200 NICKI Stop: 01/02/21 14:31 Last Admin: 12/03/20 15:31 Dose: 1,200 mg Documented by: Fluticasone/Vilanterol (Fluticasone/Vilanterol 200/25mcg 14 Puffs/Inhaler) 1 puffs INH DAILY NICKI; Protocol Stop: 01/03/21 08:59 Last Admin: 12/04/20 09:06 Dose: 1 puffs Documented by: Hydrocodone Bit/Homatropine Methylb (Hydrocodone/Homatropine Syrup 5mg/1.5mg 5ml Udp) 5 ml PO Q6H PRN PRN Reason: Cough Stop: 12/17/20 14:56 Sodium Chloride (Nss 1000ml) 1,000 mls @ 125 mls/hr IV .Q8H NICKI Stop: 01/02/21 07:14 Last Admin: 12/04/20 16:37 Dose: 125 mls/hr Documented by: Cefepime HCl 2,000 mg/ Syringe 20 mls @ 5 mls/min IV Q12H NICKI; Protocol Stop: 12/14/20 06:59 Last Admin: 12/04/20 20:20 Dose: 5 mls/min Documented by: Insulin Aspart (Insulin Aspart 100 Units/Ml 3 Ml Pen) 0 units SC ACHS NICKI Stop: 01/02/21 16:29 Last Admin: 12/04/20 17:07 Dose: 5 units Documented by: Insulin Glargine (Insulin Glargine Solostar 100 Units/Ml 3 Ml Pen) 45 units SQ QAM [facility] Stop: 01/02/21 14:59 Last Admin: 12/04/20 09:02 Dose: 45 units Documented by: Levothyroxine Sodium (Levothyroxine Sodium 112 Mcg Tablet) 112 mcg PO DAILYBB NICKI Stop: 01/02/21 15:29 Last Admin: 12/04/20 05:47 Dose: 112 mcg Documented by: Metoprolol Succinate (Metoprolol Succ 50mg Ext Rel Tab) 50 mg PO BID [facility] Stop: 01/02/21 14:59 Last Admin: 12/04/20 20:10 Dose: 50 mg Documented by: Mirtazapine (Mirtazapine Soltab 15 Mg) 45 mg PO QPM [facility] Stop: 01/02/21 20:59 Last Admin: 12/04/20 20:10 Dose: 45 mg Documented by: Olanzapine (Olanzapine 2.5 Mg Tab) 2.5 mg PO [facility] Stop: 01/02/21 20:59 Last Admin: 12/04/20 20:10 Dose: 2.5 mg Documented by: Olanzapine (Olanzapine 5 Mg Tablet) 5 mg PO [facility] Stop: 01/02/21 20:59 Last Admin: 12/04/20 20:10 Dose: 5 mg Documented by: Ondansetron HCl (Ondansetron Inj 2 Mg/Ml 2 Ml Vial) 4 mg IV Q6H PRN PRN Reason: Nausea Stop: 01/02/21 14:31 Pantoprazole Sodium (Pantoprazole 40 Mg Tab) 40 mg PO BID [facility] Stop: 01/02/21 14:59 Last Admin: 12/04/20 20:12 Dose: 40 mg Documented by: Quetiapine Fumarate (Quetiapine Fumarate 25 Mg Tablet) 50 mg PO [facility] Stop: 01/02/21 20:59 Last Admin: 12/04/20 20:10 Dose: 50 mg Documented by: Rifampin (Rifampin 300 Mg Capsule) 600 mg PO MoWeFr@1200 [facility] Stop: 01/02/21 14:59 Last Admin: 12/03/20 15:32 Dose: 600 mg Documented by: Tamsulosin HCl (Tamsulosin Hcl 0.4 Mg Cap) 0.4 mg PO QPM [facility]I Stop: 01/02/21 20:59 Last Admin: 12/04/20 20:10 Dose: 0.4 mg Documented by: Venlafaxine HCl (Venlafaxine Hcl Xr 150 Mg Capxr) 150 mg PO HS NICKI Stop: 01/02/21 20:59 Last Admin: 12/04/20 20:09 Dose: 150 mg Documented by: PG Care Time/CCT Total # of Minutes Spent Total Time Spent with Patient: Total time spent is greater than 50% in coordi nation of care (as documented) at patient's floor/unit and/or counseling patient: Coding Level of Care Code 58304 Subseq Hosp Care Lvl 3 Diagnoses Acute kidney failure N17.9 Acute urinary retention R33.8 Gross hematuria R31.0 Lactic acidosis E87.2 Acute hyperglycemia R73.9 Bladder cancer C67.9 GERD without esophagitis K21.9 KENTON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
[2020-12-04] MEDS ORDERED: MAGNESIUM SULFATE / D5W 1 GM/100 ML BAG IV ONE (10:00)
--- NOTE | 2020-12-04 11:49 | Urology Progress Note ---
Date of Service December 04, 2020 Assessment & Plan (1) Gross hematuria: (2) Bladder cancer: Clot retention after recent TURBT in the setting of Plavix use Continue to hold Plavix Hemoglobin was 7.7 this morningheart rate, blood pressure do not seem to reflect this degree of drop, however he has a repeat hemoglobin ordered for this afternoon as well as a transfusion which I think is very appropriate Continue Mondragon catheter for the time being, manual irrigation as needed Hoping to see the urine clear over the next 24 hoursideally I would like to offer a voiding trial before DC home from the hospital Admission and Anticipated Discharge Date Admission Date: December 03, 2020 Subjective Subjectively doing okay He denies any significant pain Catheter drained without issue overnight, however remains quite dark and bloody Tolerated cystoscopy and clot evacuation yesterday Physical Exam Physical Exam: Catheter draining Merlot colored urine Constitutional: well developed and well nourished Respiratory: no respiratory distress Cardiovascular: Extremities: no pedal edema Gastrointestinal (Abdomen): Inspection/Auscultation: abdomen normal to inspection Results & Data ([facility]) Vital Signs (Past 12 Hours) Vital Signs Temp Pulse Pulse Pulse Resp BP BP 12/04/20 11:00 36.7 C 72 18 113/63 12/04/20 10:25 73 12/04/20 07:40 78 105/57 L 12/04/20 07:28 36.7 C 81 20 92/53 L 12/04/20 03:34 36.7 C 86 20 96/61 L 12/04/20 00:04 75 Pulse Ox 12/04/20 11:00 97 12/04/20 10:25 12/04/20 07:40 12/04/20 07:28 94 12/04/20 03:34 90 12/04/20 00:04 PG Care Time/CCT Total # of Minutes Spent Total Time Spent with Patient: Total time spent is greater than 50% in coordination of care (as documented) at patient's floor/unit and/or counseling patient: Coding Level of Care Code 49587 Subseq Hosp Care Lvl 2 Diagnoses Gross hematuria R31.0 Bladder cancer C67.9
[2020-12-04 14:15] LABS: Hematocrit (blood only) 25.5 % (42-52); Hemoglobin 8.7 g/dL (14.0-18.0)
[2020-12-04] MEDS: VENLAFAXINE HCL XR 150 MG CAPXR PO SCH (20:09)
[2020-12-04] MEDS: MIRTAZAPINE SOLTAB 15 MG PO SCH (20:10)
[2020-12-04] MEDS: ATORVASTATIN 40 MG TAB PO SCH (20:10)
[2020-12-04] MEDS: OLANZAPINE 2.5 MG TAB PO SCH (20:10)
[2020-12-04] MEDS: TAMSULOSIN HCL 0.4 MG CAP PO SCH (20:10)
[2020-12-04] MEDS: OLANZapine 5 MG TABLET PO SCH (20:10)
[2020-12-04] MEDS: QUEtiapine FUMARATE 25 MG TABLET PO SCH (20:10)
[2020-12-04] MEDS: CEFEPIME 2,000 MG in SYRINGE 0 ML IV SCH (20:20)
[2020-12-05] MEDS: SODIUM CHLORIDE 0.9% 1000ML 1,000 ML IV SCH ×2 (00:34→07:45)
[2020-12-05] MEDS: LEVOTHYROXINE SODIUM 112 MCG TABLET PO SCH (06:10)
[2020-12-05 06:29] LABS: Basophils # (auto) 0.01 K/uL (0-0.2); Basophils % (auto) 0.2 %; Eosinophils # (auto) 0.21 K/uL (0-0.5); Eosinophils % (auto) 4.1 %; Hematocrit (blood only) 21.5 % (42-52); Hemoglobin 7.4 g/dL (14.0-18.0); Immature Granulocytes # (auto) 0.01 K/uL (0.00-0.02); Immature Granulocytes % (auto) 0.2 %; Lymphocytes # (auto) 0.99 K/uL (1.2-3.4); Lymphocytes % (auto) 19.4 %; Mean Corpuscular Hemoglobin 29.8 pg (25-34); Mean Corpuscular Hgb Conc 34.4 g/dL (32-36); Mean Corpuscular Volume 86.7 fL (80-100); Mean Platelet Volume 8.7 fL (7.4-10.4); Monocytes # (auto) 0.58 K/uL (0.11-0.59); Monocytes % (auto) 11.4 %; Neutrophils % (auto) 64.7 %; Platelet Count 173 K/uL (130-400); RDW Coefficient of Variation 14.1 % (11.5-14.5); RDW Standard Deviation 44.8 fL (36.4-46.3); Red Blood Count 2.48 M/uL (4.7-6.1)
[2020-12-05 07:15] LABS: BUN Creatinine Ratio 10.8 (10-20); Calcium 7.2 mg/dl (8.5-10.1); Creatinine Clr Calc Pharmacy 69.4 ml/min; Est GFR (African American) 92.6; Est GFR (Non-African American) 79.9; Potassium 3.3 mmol/L (3.5-5.1)
--- NOTE | 2020-12-05 07:59 | Urology Progress Note ---
Date of Service December 05, 2020 Assessment & Plan (1) Gross hematuria: (2) Bladder cancer: 80 year-old male patient, with multiple comorbidities, admitted with acute hyperglycemia, lactic acidosis, and gross hematuria with acute urinary retention. -Plan of care reviewed with Dr. Quijano. -Clot retention after recent TURBT in the setting of Plavix use. -Remains afebrile. -Labs reviewed - creatinine stable, hemoglobin 7.4 this morning. -Plans in place by medicine to repeat H&H this afternoon. -Continue to hold Plavix. -Continue goel catheter for the time being, manual irrigation as needed. -Continue with supportive care and close monitoring. -Recommend NPO at midnight in the event he requires repeat cystoscopy while inpatient. -Will continue to follow with primary team. Admission and Anticipated Discharge Date Admission Date: December 03, 2020 Subjective Patient POD#2 cystoscopy, clot evacuation, fulguration. He reports he is feeling good overall. States he feels more confused this morning, he forgot where he was overnight. Is able to recall date and event. Denies abdominal or suprapubic pain. Goel catheter intact, draining without issues overnight. Did not require manual irrigation. Denies fevers or chills. Denies nausea or vomiting. Bed alarm on for safety. Chart review: Afebrile. Wbc 5.10 Hgb 7.4 (previously 8.7) - PRBC on hold, did not require transfusion yesterday. Creatinine 0.91 Heart rate normal, bp 107/57 this morning. Blood cultures no growth after 24 hours. Denies additional urologic concerns today. Review of Systems Constitutional: as per Subjective / HPI; no fever and no chills Gastrointestinal: as per Subjective / HPI; no nausea and no vomiting Genitourinary: + as per Subjective / HPI Neurologic: as per Subjective / HPI Physical Exam Constitutional: well developed, well nourished, cooperative and comfortable; no acute distress Respiratory: normal respiratory effort and able to speak in complete sentences; no respiratory distress and no audible wheezes Cardiovascular: Extremities: no calf tenderness and no edema Gastrointestinal (Abdomen): Inspection/Auscultation: abdomen normal to inspection; abdomen not distended Percussion/Palpation: abdomen soft; abdomen nontender and no guarding Psychiatric: Orientation: alert, oriented to person, oriented to time and cooperative; + not oriented to place Affect: euthymic affect Genitourinary: no CVA tenderness Goel catheter intact draining dark bloody urine, does appear clearer and less thick as compared to yesterdays exam. Results & Data ([facility]) Vital Signs (Past 12 Hours) Vital Signs Temp Pulse Pulse Pulse Resp BP BP 12/05/20 07:00 36.5 C 68 20 107/57 L 12/05/20 04:00 36.6 C 73 16 100/54 L 12/04/20 23:00 36.6 C 85 18 118/65 12/04/20 22:30 79 Pulse Ox 12/05/20 07:00 95 12/05/20 04:00 93 12/04/20 23:00 92 12/04/20 22:30 PG Care Time/CCT Total # of Minutes Spent Total Time Spent with Patient: Total time spent is greater than 50% in coordination of care (as documented) at patient's floor/unit and/or counseling patient: Coding Level of Care Code 23762 Subseq Hosp Care Lvl 2 Diagnoses Gross hematuria R31.0 Bladder cancer C67.9
[2020-12-05] MEDS: POTASSIUM CHLORIDE CRTAB 20 MEQ TABCR PO SCH ×2 (09:11→20:23)
[2020-12-05] MEDS: METOPROLOL SUCC 50MG EXT REL TAB PO SCH ×2 (09:11→20:22)
[2020-12-05] MEDS: CEFEPIME 2,000 MG in SYRINGE 0 ML IV SCH (09:11)
[2020-12-05] MEDS: PANTOprazole 40 MG TAB PO SCH ×2 (09:12→20:23)
[2020-12-05] MEDS: INSULIN ASPART 100 UNITS/ML 3 ML PEN SC SCH ×4 (09:13→20:36)
[2020-12-05] MEDS: INSULIN GLARGINE SOLOSTAR 100 UNITS/ML 3 ML PEN SQ SCH (09:19)
[2020-12-05] MEDS: FLUTICASONE/VILANTEROL 200/25MCG 14 PUFFS/INHALER INH SCH (09:20)
[2020-12-05] MEDS: rifAMPin 300 MG CAPSULE PO SCH (12:29)
[2020-12-05] MEDS: ETHAMBUTOL HCL 400 MG TAB PO SCH (12:29)
[2020-12-05 13:07] LABS: Hemoglobin 7.4 g/dL (14.0-18.0)
[2020-12-05] MEDS: ALBUT/IPRATROP 3MG/0.5MG NEB 3 ML VIAL NEB PRN ×2 (14:00→20:19)
[2020-12-05] MEDS ORDERED: SODIUM CHLORIDE 0.9% 250 ML IV PRN (14:29)
--- NOTE | 2020-12-05 14:35 | Hospitalist Progress Note ---
Date of Service December 05, 2020 Assessment & Plan (1) Acute kidney failure: likely combination of obstructive and dehydration s/p cystoscopy with removal of bladder hematoma, draining beck colored urine via goel, now urine is dark, old blood treated with IV fluids initially, stopped Cr down to 0.9, KEN resolved non-oliguric, making a lot of urine (2) Acute urinary retention: due to hematoma forming after TURBT several days prior, prior use of Plavix s/p cystoscopy with evacuation of bladder hematoma on 12/03 now with goel, draining dark urine Dr. Malone would like to see clear urine for a day would like to perform voiding trial prior to discharge possible UTI, no cultures, will stop Cefepime since urine is not clear, make NPO after midnight, urology may take back for repeat cystoscopy to assess bleeding (3) Gross hematuria: due to bleeding from recent TURBT sites Hb down to 7.4 this morning, repeat 7.4 this afternoon will give one unit PRBC, consent signed hold Plavix (4) Lactic acidosis: due to hypovolemia, dehydration repeat trending down, no need to follow further (5) Acute hyperglycemia: without evidence of DKA likely from stress, missing insulin doses gave normal dose of Lantus 45 units this AM Novolog SS with correction factor 20 and carb ratio 5 sugars stable all day today cut lantus to 25 units in the morning with NPO after midnight order (6) Bladder cancer: s/p TURBT, no radiation or chemotherapy (7) GERD without esophagitis: Protonix (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 Ethambutol (9) Anxiety: mood stable now that he has relief continue home regimen Admission and Anticipated Discharge Date Admission Date: December 03, 2020 Subjective patient doing well today, only complaint is that he feels like he has to urinate all the time discussed that the sensation is due to goel explained that urine is still dark, some old blood, not clear like we are hoping for d/w urology, make NPO after midnight, he may need repeat cystoscopy spoke with RN about this, will cut Lantus in half since he will be NPO reviewed labs, Hb is 7.4 this AM, repeat also 7.4, BP low normal, he agrees to one unit PRBC Cr is back down to normal at 0.91, K low at 3.3, added PO replacement eating and drinking well, breathing well, no chest pain, no fever/chills Review of Systems Review of Systems: All systems reviewed & are unremarkable except as noted in Subjective Physical Exam Constitutional: well developed and well nourished; no acute distress and no altered mental status Neck: trachea midline, no thyromegaly Respiratory: normal respiratory effort, lungs clear to auscultation Cardiovascular: RRR, no murmur, no edema Gastrointestinal (Abdomen): normal bowel sounds, soft, nontender, no hepatosplenomegaly Musculoskeletal: no cyanosis or clubbing, extremities motor strength 5/5 Skin: no rashes, warm and dry Neurologic: patellar DTR's 2+ bilat, sensation intact and PERRL, EOMI, accommodation nl, no face palsy, no dysarthria Psychiatric: A+Ox3, euthymic affect Lymphatic: no cervical or axillary lymphadenopathy Results & Data Results & Data ([facility]) Vital Signs (Past 12 Hours) Vital Signs Temp Pulse Pulse Resp BP BP Pulse Ox 12/05/20 14:00 73 16 94 12/05/20 11:41 36.6 C 66 20 103/66 98 12/05/20 07:00 36.5 C 68 20 107/57 L 95 12/05/20 04:00 36.6 C 73 16 100/54 L 93 Laboratory Results Laboratory Results - last 24 hr 12/04/20 12/04/20 12/05/20 16:20 20:01 06:15 WBC 5.10 RBC 2.48 L Hgb 7.4 L Hct 21.5 L MCV 86.7 MCH 29.8 MCHC 34.4 RDW Std Deviation 44.8 RDW Coeff of Yulissa 14.1 Plt Count 173 MPV 8.7 Immature Gran % (Auto) 0.2 Neut % (Auto) 64.7 Lymph % (Auto) 19.4 [place] % (Auto) 11.4 Eos % (Auto) 4.1 Baso % (Auto) 0.2 Neut # (Auto) 3.30 Lymph # (Auto) 0.99 L [place] # (Auto) 0.58 Eos # (Auto) 0.21 Baso # (Auto) 0.01 Immature Gran # (Auto) 0.01 Sodium Potassium Chloride Carbon Dioxide Anion Gap BUN Creatinine Est Cr Clr Drug Dosing Est GFR ( Amer) Est GFR (Non-Af Amer) BUN/Creatinine Ratio Glucose POC Glucose 102 H 106 H Calcium 12/05/20 12/05/20 12/05/20 06:15 07:53 11:14 WBC RBC Hgb Hct MCV MCH MCHC RDW Std Deviation RDW Coeff of Yulissa Plt Count MPV Immature Gran % (Auto) Neut % (Auto) Lymph % (Auto) [place] % (Auto) Eos % (Auto) Baso % (Auto) Neut # (Auto) Lymph # (Auto) [place] # (Auto) Eos # (Auto) Baso # (Auto) Immature Gran # (Auto) Sodium 145 Potassium 3.3 L D Chloride 116 H Carbon Dioxide 24 Anion Gap 5.0 BUN 10 Creatinine 0.91 Est Cr Clr Drug Dosing 69.4 Est GFR ( Amer) 92.6 Est GFR (Non-Af Amer) 79.9 BUN/Creatinine Ratio 10.8 Glucose 58 L POC Glucose 74 164 H Calcium 7.2 L 12/05/20 12:52 WBC RBC Hgb 7.4 L Hct 22.0 L MCV MCH MCHC RDW Std Deviation RDW Coeff of Yulissa Plt Count MPV Immature Gran % (Auto) Neut % (Auto) Lymph % (Auto) [place] % (Auto) Eos % (Auto) Baso % (Auto) Neut # (Auto) Lymph # (Auto) [place] # (Auto) Eos # (Auto) Baso # (Auto) Immature Gran # (Auto) Sodium Potassium Chloride Carbon Dioxide Anion Gap BUN Creatinine Est Cr Clr Drug Dosing Est GFR ( Amer) Est GFR (Non-Af Amer) BUN/Creatinine Ratio Glucose POC Glucose Calcium Medications Administered Current Inpatient Medications Acetaminophen (Acetaminophen 325 Mg Tab) 650 mg PO Q4H PRN PRN Reason: Pain or Fever Stop: 01/02/21 14:31 Albuterol (Albut/Ipratrop 3mg/0.5mg Neb 3 Ml Vial) 3 ml NEB Q2R PRN PRN Reason: Wheezing Stop: 01/04/21 10:39 Last Admin: 12/05/20 14:00 Dose: 3 ml Documented by: Atorvastatin Calcium (Atorvastatin 40 Mg Tab) 40 mg PO HS [facility] Stop: 01/02/21 20:59 Last Admin: 12/04/20 20:10 Dose: 40 mg Documented by: Ethambutol HCl (Ethambutol Hcl 400 Mg Tab) 1,200 mg PO MoWeFr@1200 [facility] Stop: 01/02/21 14:31 Last Admin: 12/05/20 12:29 Dose: 1,200 mg Documented by: Fluticasone/Vilanterol (Fluticasone/Vilanterol 200/25mcg 14 Puffs/Inhaler) 1 puffs INH DAILY [facility]; Protocol Stop: 01/03/21 08:59 Last Admin: 12/05/20 09:20 Dose: 1 puffs Documented by: Hydrocodone Bit/Homatropine Methylb (Hydrocodone/Homatropine Syrup 5mg/1.5mg 5ml Udp) 5 ml PO Q6H PRN PRN Reason: Cough Stop: 12/17/20 14:56 Cefepime HCl 2,000 mg/ Syringe 20 mls @ 5 mls/min IV Q12H [facility]; Protocol Stop: 12/14/20 06:59 Last Admin: 12/05/20 09:11 Dose: 5 mls/min Documented by: Sodium Chloride (Nss) 250 mls @ 15 mls/hr IV .[id number] PRN PRN Reason: For Transfusion Stop: 12/06/20 00:29 Insulin Aspart (Insulin Aspart 100 Units/Ml 3 Ml Pen) 0 units SC ACHS [facility] Stop: 01/02/21 16:29 Last Admin: 12/05/20 12:27 Dose: 6 units Documented by: Insulin Glargine (Insulin Glargine Solostar 100 Units/Ml 3 Ml Pen) 45 units SQ QAM [facility] Stop: 01/02/21 14:59 Last Admin: 12/05/20 09:19 Dose: 45 units Documented by: Levothyroxine Sodium (Levothyroxine Sodium 112 Mcg Tablet) 112 mcg PO DAILYBB [facility] Stop: 01/02/21 15:29 Last Admin: 12/05/20 06:10 Dose: 112 mcg Documented by: Metoprolol Succinate (Metoprolol Succ 50mg Ext Rel Tab) 50 mg PO BID [facility] Stop: 01/02/21 14:59 Last Admin: 12/05/20 09:11 Dose: 50 mg Documented by: Mirtazapine (Mirtazapine Soltab 15 Mg) 45 mg PO QPM [facility] Stop: 01/02/21 20:59 Last Admin: 12/04/20 20:10 Dose: 45 mg Documented by: Olanzapine (Olanzapine 2.5 Mg Tab) 2.5 mg PO [facility] Stop: 01/02/21 20:59 Last Admin: 12/04/20 20:10 Dose: 2.5 mg Documented by: Olanzapine (Olanzapine 5 Mg Tablet) 5 mg PO [facility] Stop: 01/02/21 20:59 Last Admin: 12/04/20 20:10 Dose: 5 mg Documented by: Ondansetron HCl (Ondansetron Inj 2 Mg/Ml 2 Ml Vial) 4 mg IV Q6H PRN PRN Reason: Nausea Stop: 01/02/21 14:31 Pantoprazole Sodium (Pantoprazole 40 Mg Tab) 40 mg PO BID [facility] Stop: 01/02/21 14:59 Last Admin: 12/05/20 09:12 Dose: 40 mg Documented by: Potassium Chloride (Potassium Chloride Crtab 20 Meq Tabcr) 20 meq PO BID [facility] Stop: 01/04/21 08:59 Last Admin: 12/05/20 09:11 Dose: 20 meq Documented by: Quetiapine Fumarate (Quetiapine Fumarate 25 Mg Tablet) 50 mg PO [facility] Stop: 01/02/21 20:59 Last Admin: 12/04/20 20:10 Dose: 50 mg Documented by: Rifampin (Rifampin 300 Mg Capsule) 600 mg PO MoWeFr@1200 [facility] Stop: 01/02/21 14:59 Last Admin: 12/05/20 12:29 Dose: 600 mg Documented by: Tamsulosin HCl (Tamsulosin Hcl 0.4 Mg Cap) 0.4 mg PO QPM [facility] Stop: 01/02/21 20:59 Last Admin: 12/04/20 20:10 Dose: 0.4 mg Documented by: Venlafaxine HCl (Venlafaxine Hcl Xr 150 Mg Capxr) 150 mg PO [facility] Stop: 01/02/21 20:59 Last Admin: 12/04/20 20:09 Dose: 150 mg Documented by: PG Care Time/CCT Total # of Minutes Spent Total Time Spent with Patient: Total time spent is greater than 50% in coordination of care (as documented) at patient's floor/unit and/or counseling patient: Coding Level of Care Code 86948 Subseq Hosp Care Lvl 3 Diagnoses Acute kidney failure N17.9 Acute urinary retention R33.8 Gross hematuria R31.0 Lactic acidosis E87.2 Acute hyperglycemia R73.9 Bladder cancer C67.9 GERD without esophagitis K21.9 [place]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
[2020-12-05] MEDS: TAMSULOSIN HCL 0.4 MG CAP PO SCH (20:22)
[2020-12-05] MEDS: QUEtiapine FUMARATE 25 MG TABLET PO SCH (20:22)
[2020-12-05] MEDS: MIRTAZAPINE SOLTAB 15 MG PO SCH (20:23)
[2020-12-05] MEDS: VENLAFAXINE HCL XR 150 MG CAPXR PO SCH (20:23)
[2020-12-05] MEDS: ATORVASTATIN 40 MG TAB PO SCH (20:23)
[2020-12-05] MEDS: OLANZAPINE 2.5 MG TAB PO SCH (20:24)
[2020-12-05] MEDS: OLANZapine 5 MG TABLET PO SCH (20:51)
[2020-12-06] MEDS: LEVOTHYROXINE SODIUM 112 MCG TABLET PO SCH (05:44)
[2020-12-06 07:07] LABS: Basophils # (auto) 0.01 K/uL (0-0.2); Basophils % (auto) 0.2 %; Eosinophils # (auto) 0.18 K/uL (0-0.5); Eosinophils % (auto) 3.6 %; Hematocrit (blood only) 24.4 % (42-52); Hemoglobin 8.4 g/dL (14.0-18.0); Immature Granulocytes # (auto) 0.02 K/uL (0.00-0.02); Immature Granulocytes % (auto) 0.4 %; Lymphocytes # (auto) 0.79 K/uL (1.2-3.4); Lymphocytes % (auto) 15.7 %; Mean Corpuscular Hemoglobin 29.9 pg (25-34); Mean Corpuscular Hgb Conc 34.4 g/dL (32-36); Mean Corpuscular Volume 86.8 fL (80-100); Monocytes # (auto) 0.71 K/uL (0.11-0.59); Monocytes % (auto) 14.1 %; Neutrophils # (auto) 3.33 K/uL (1.4-6.5); Platelet Count 200 K/uL (130-400); RDW Coefficient of Variation 13.7 % (11.5-14.5); RDW Standard Deviation 43.7 fL (36.4-46.3); Red Blood Count 2.81 M/uL (4.7-6.1); White Blood Count 5.04 K/uL (4.8-10.8)
[2020-12-06 07:46] LABS: BUN Creatinine Ratio 10.4 (10-20); Calcium 8.3 mg/dl (8.5-10.1); Creatinine Clr Calc Pharmacy 74.2 ml/min; Est GFR (African American) 97.5; Est GFR (Non-African American) 84.1; Potassium 3.7 mmol/L (3.5-5.1)
[2020-12-06] MEDS: INSULIN ASPART 100 UNITS/ML 3 ML PEN SC SCH ×4 (08:54→20:36)
[2020-12-06] MEDS: POTASSIUM CHLORIDE CRTAB 20 MEQ TABCR PO SCH ×2 (08:55→20:33)
[2020-12-06] MEDS: PANTOprazole 40 MG TAB PO SCH ×2 (08:55→20:34)
[2020-12-06] MEDS: FLUTICASONE/VILANTEROL 200/25MCG 14 PUFFS/INHALER INH SCH (08:55)
[2020-12-06] MEDS: METOPROLOL SUCC 50MG EXT REL TAB PO SCH ×2 (08:55→20:35)
[2020-12-06] MEDS ORDERED: INSULIN GLARGINE SOLOSTAR 100 UNITS/ML 3 ML PEN SQ SCH (09:00)
--- NOTE | 2020-12-06 12:36 | Hospitalist Progress Note ---
Date of Service December 06, 2020 Assessment & Plan (1) Acute kidney failure: likely combination of obstructive and dehydration s/p cystoscopy with removal of bladder hematoma, draining beck colored urine via goel, now urine is dark, old blood treated with IV fluids initially, stopped two days ago Cr down to 0.8, KEN resolved non-oliguric, making a lot of urine (2) Acute urinary retention: due to hematoma forming after TURBT several days prior, prior use of Plavix s/p cystoscopy with evacuation of bladder hematoma on 12/03 now with goel, draining clear urine with some dark sediment Dr. Malone would like to see clear urine for a day would like to perform voiding trial prior to discharge Dr. Lakhani rounding today, hold on discharge, re-evaluate tomorrow possible UTI, no cultures, will stop Cefepime (3) Hypoglycemia: low last night at 64 and again this morning at 65 will change Lantus to 30 units qAM, normally on 45 at home will loosen correction factor to 30 and carb ratio to 12 follow sugars closely (4) Gross hematuria: due to bleeding from recent TURBT sites Hb down to 7.4 2/5 transfused one unit PRBC, Hb up to 8.4 today repeat H/H tomorrow hold Plavix (5) Lactic acidosis: due to hypovolemia, dehydration repeat trending down, no need to follow further (6) Acute hyperglycemia: without evidence of DKA likely from stress, missing insulin doses corrected quickly with lantus and Novolog (7) Bladder cancer: s/p TURBT, no radiation or chemotherapy (8) GERD without esophagitis: Protonix (9) [place]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 Lakhani, unsure of when the goel can come out, might need to go home with goel, will come up with plan Hb is stable at 8.4, up from 7.4 after one unit of PRBC yesterday goel urine is more clear, some old blood / clot but nothing fresh which is a good sign eating well, good strength and balance when walking Review of Systems Review of Systems: All systems reviewed & are unremarkable except as noted in Subjective Physical Exam Constitutional: well developed and well nourished; no acute distress and no altered mental status Neck: trachea midline, no thyromegaly Respiratory: normal respiratory effort, lungs clear to auscultation Cardiovascular: RRR, no murmur, no edema Gastrointestinal (Abdomen): normal bowel sounds, soft, nontender, no hepatosplenomegaly Musculoskeletal: no cyanosis or clubbing, extremities motor strength 5/5 Skin: no rashes, warm and dry Neurologic: patellar DTR's 2+ bilat, sensation intact and PERRL, EOMI, accommodation nl, no face palsy, no dysarthria Psychiatric: A+Ox3, euthymic affect Lymphatic: no cervical or axillary lymphadenopathy Results & Data Results & Data ([facility]) Vital Signs (Past 12 Hours) Vital Signs Temp Pulse Pulse Resp BP Pulse Ox 12/06/20 11:10 36.5 C 100 H 18 148/74 H 94 12/06/20 07:47 36.3 C L 72 18 115/60 95 12/06/20 07:00 76 12/06/20 04:00 36.3 C L 74 18 117/67 97 12/06/20 00:42 79 Laboratory Results Laboratory Results - last 24 hr 12/03/20 12/05/20 12/05/20 08:42 12:52 16:52 WBC RBC Hgb 7.4 L Hct 22.0 L MCV MCH MCHC RDW Std Deviation RDW Coeff of Yulissa Plt Count MPV Immature Gran % (Auto) Neut % (Auto) Lymph % (Auto) [place] % (Auto) Eos % (Auto) Baso % (Auto) Neut # (Auto) Lymph # (Auto) [place] # (Auto) Eos # (Auto) Baso # (Auto) Immature Gran # (Auto) Sodium Potassium Chloride Carbon Dioxide Anion Gap BUN Creatinine Est Cr Clr Drug Dosing Est GFR ( Amer) Est GFR (Non-Af Amer) BUN/Creatinine Ratio Glucose POC Glucose 65 L* Calcium Blood Type O Positive Antibody Screen NEGATIVE Crossmatch See Detail 12/05/20 12/05/20 12/05/20 16:53 17:14 17:16 WBC RBC Hgb Hct MCV MCH MCHC RDW Std Deviation RDW Coeff of Yulissa Plt Count MPV Immature Gran % (Auto) Neut % (Auto) Lymph % (Auto) [place] % (Auto) Eos % (Auto) Baso % (Auto) Neut # (Auto) Lymph # (Auto) [place] # (Auto) Eos # (Auto) Baso # (Auto) Immature Gran # (Auto) Sodium Potassium Chloride Carbon Dioxide Anion Gap BUN Creatinine Est Cr Clr Drug Dosing Est GFR ( Amer) Est GFR (Non-Af Amer) BUN/Creatinine Ratio Glucose POC Glucose 65 L* 67 L* 72 Calcium Blood Type Antibody Screen Crossmatch 12/05/20 12/06/20 12/06/20 20:10 06:44 06:44 WBC 5.04 RBC 2.81 L Hgb 8.4 L Hct 24.4 L MCV 86.8 MCH 29.9 MCHC 34.4 RDW Std Deviation 43.7 RDW Coeff of Yulissa 13.7 Plt Count 200 MPV 9.0 Immature Gran % (Auto) 0.4 Neut % (Auto) 66.0 Lymph % (Auto) 15.7 [place] % (Auto) 14.1 Eos % (Auto) 3.6 Baso % (Auto) 0.2 Neut # (Auto) 3.33 Lymph # (Auto) 0.79 L [place] # (Auto) 0.71 H Eos # (Auto) 0.18 Baso # (Auto) 0.01 Immature Gran # (Auto) 0.02 Sodium 145 Potassium 3.7 Chloride 115 H Carbon Dioxide 22 Anion Gap 8.0 BUN 9 Creatinine 0.82 Est Cr Clr Drug Dosing 74.2 Est GFR ( Amer) 97.5 Est GFR (Non-Af Amer) 84.1 BUN/Creatinine Ratio 10.4 Glucose 65 L POC Glucose 84 Calcium 8.3 L D Blood Type Antibody Screen Crossmatch 12/06/20 12/06/20 07:30 11:18 WBC RBC Hgb Hct MCV MCH MCHC RDW Std Deviation RDW Coeff of Yulissa Plt Count MPV Immature Gran % (Auto) Neut % (Auto) Lymph % (Auto) [place] % (Auto) Eos % (Auto) Baso % (Auto) Neut # (Auto) Lymph # (Auto) [place] # (Auto) Eos # (Auto) Baso # (Auto) Immature Gran # (Auto) Sodium Potassium Chloride Carbon Dioxide Anion Gap BUN Creatinine Est Cr Clr Drug Dosing Est GFR ( Amer) Est GFR (Non-Af Amer) BUN/Creatinine Ratio Glucose POC Glucose 81 79 Calcium Blood Type Antibody Screen Crossmatch Medications Administered Current Inpatient Medications Acetaminophen (Acetaminophen 325 Mg Tab) 650 mg PO Q4H PRN PRN Reason: Pain or Fever Stop: 01/02/21 14:31 Albuterol (Albut/Ipratrop 3mg/0.5mg Neb 3 Ml Vial) 3 ml NEB Q2R PRN PRN Reason: Wheezing Stop: 01/04/21 10:39 Last Admin: 12/05/20 20:19 Dose: 3 ml Documented by: Atorvastatin Calcium (Atorvastatin 40 Mg Tab) 40 mg PO HS [facility] Stop: 01/02/21 20:59 Last Admin: 12/05/20 20:23 Dose: 40 mg Documented by: Ethambutol HCl (Ethambutol Hcl 400 Mg Tab) 1,200 mg PO MoWeFr@1200 [facility] Stop: 01/02/21 14:31 Last Admin: 12/05/20 12:29 Dose: 1,200 mg Documented by: Fluticasone/Vilanterol (Fluticasone/Vilanterol 200/25mcg 14 Puffs/Inhaler) 1 puffs INH DAILY [facility]; Protocol Stop: 01/03/21 08:59 Last Admin: 12/06/20 08:55 Dose: 1 puffs Documented by: Hydrocodone Bit/Homatropine Methylb (Hydrocodone/Homatropine Syrup 5mg/1.5mg 5ml Udp) 5 ml PO Q6H PRN PRN Reason: Cough Stop: 12/17/20 14:56 Insulin Aspart (Insulin Aspart 100 Units/Ml 3 Ml Pen) 0 units SC ACHS [facility] Stop: 01/02/21 16:29 Last Admin: 12/06/20 08:54 Dose: Not Given Documented by: Insulin Glargine (Insulin Glargine Solostar 100 Units/Ml 3 Ml Pen) 25 units SQ QAM [facility] Stop: 01/05/21 08:59 Last Admin: 12/06/20 08:56 Dose: 25 units Documented by: Levothyroxine Sodium (Levothyroxine Sodium 112 Mcg Tablet) 112 mcg PO DAILYBB [facility] Stop: 01/02/21 15:29 Last Admin: 12/06/20 05:44 Dose: 112 mcg Documented by: Metoprolol Succinate (Metoprolol Succ 50mg Ext Rel Tab) 50 mg PO BID [facility] Stop: 01/02/21 14:59 Last Admin: 12/06/20 08:55 Dose: 50 mg Documented by: Mirtazapine (Mirtazapine Soltab 15 Mg) 45 mg PO QPM [facility] Stop: 01/02/21 20:59 Last Admin: 12/05/20 20:23 Dose: 45 mg Documented by: Olanzapine (Olanzapine 2.5 Mg Tab) 2.5 mg PO [facility] Stop: 01/02/21 20:59 Last Admin: 12/05/20 20:24 Dose: 2.5 mg Documented by: Olanzapine (Olanzapine 5 Mg Tablet) 5 mg PO [facility] Stop: 01/02/21 20:59 Last Admin: 12/05/20 20:51 Dose: 5 mg Documented by: Ondansetron HCl (Ondansetron Inj 2 Mg/Ml 2 Ml Vial) 4 mg IV Q6H PRN PRN Reason: Nausea Stop: 01/02/21 14:31 Pantoprazole Sodium (Pantoprazole 40 Mg Tab) 40 mg PO BID [facility] Stop: 01/02/21 14:59 Last Admin: 12/06/20 08:55 Dose: 40 mg Documented by: Potassium Chloride (Potassium Chloride Crtab 20 Meq Tabcr) 20 meq PO BID [facility] Stop: 01/04/21 08:59 Last Admin: 12/06/20 08:55 Dose: 20 meq Documented by: Quetiapine Fumarate (Quetiapine Fumarate 25 Mg Tablet) 50 mg PO [facility] Stop: 01/02/21 20:59 Last Admin: 12/05/20 20:22 Dose: 50 mg Documented by: Rifampin (Rifampin 300 Mg Capsule) 600 mg PO MoWeFr@1200 [facility] Stop: 01/02/21 14:59 Last Admin: 12/05/20 12:29 Dose: 600 mg Documented by: Tamsulosin HCl (Tamsulosin Hcl 0.4 Mg Cap) 0.4 mg PO QPM [facility] Stop: 01/02/21 20:59 Last Admin: 12/05/20 20:22 Dose: 0.4 mg Documented by: Venlafaxine HCl (Venlafaxine Hcl Xr 150 Mg Capxr) 150 mg PO [facility] Stop: 01/02/21 20:59 Last Admin: 12/05/20 20:23 Dose: 150 mg Documented by: PG Care Time/CCT Total # of Minutes Spent Total Time Spent with Patient: Total time spent is greater than 50% in coordination of care (as documented) at patient's floor/unit and/or counseling patient: Coding Level of Care Code 62684 Subseq Hosp Care Lvl 3 Diagnoses Acute kidney failure N17.9 Acute urinary retention R33.8 Hypoglycemia E16.2 Gross hematuria R31.0 Lactic acidosis E87.2 Acute hyperglycemia R73.9 Bladder cancer C67.9 GERD without esophagitis K21.9 [place]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
--- NOTE | 2020-12-06 13:35 | Urology Progress Note ---
Date of Service December 06, 2020 Assessment & Plan (1) Gross hematuria: (2) Bladder cancer: Postop day 3 status post clot evacuation and resection. 80 year-old male patient, with multiple comorbidities, admitted with acute hyperglycemia, lactic acidosis, and gross hematuria with acute urinary retention. Urine clear at this point. Has small amount of clot material in tubing and bag which appears to be old blood. Patient has been tolerating catheter. Has not had considerable fevers chills or other issues. Patient is eating lunch today. We will continue to monitor. We will need to determine long-term plan for management. We need to consider keeping Mondragon at discharge however patient is highly motivated to have catheter out prior to leaving. We will plan to reassess over the next few days to determine when catheter can be removed safely. Admission and Anticipated Discharge Date Admission Date: December 03, 2020 Subjective Postop from clot evacuation and TURBT on Tuesday. Patient has been tolerating well. Has noticed some frequency and urgency. Has not had severe pain in the back and flank. Does have occasional burning and irritation. No severe episodes or major changes. No new nausea or vomiting. Had tolerated anesthesia without major problems. Yesterday patient's hemoglobin had dropped and had been transfused. Since then has stabilized and urine has drastically cleared. Review of Systems Review of Systems: All systems reviewed & are unremarkable except as noted in HPI & below Physical Exam Physical Exam: General: Alert in no acute distress. HEENT: Normocephalic Atraumatic. Inspection normal. Cranial Nerves 2-12 Grossly intact. Normal inspection of face. Normal inspection of neck. Psychologic: Normal affect. Respiratory: Nonlabored. No use of accessory muscles. No tachypnea or dyspnea. Cardiovascular: No tachycardia Skin: [place] and Dry. No rashes or visible lesions. Extremities/Lymphatics: No edema Abdomen: Soft Non-distended. No rebound or guarding. : Clear urine with small purple/dark clot. Within tubing Results & Data ([facility]) Vital Signs (Past 12 Hours) Vital Signs Temp Pulse Pulse Resp BP Pulse Ox 12/06/20 11:10 36.5 C 100 H 18 148/74 H 94 12/06/20 07:47 36.3 C L 72 18 115/60 95 12/06/20 07:00 76 12/06/20 04:00 36.3 C L 74 18 117/67 97 PG Care Time/CCT Total # of Minutes Spent Total Time Spent with Patient: Total time spent is greater than 50% in coordination of care (as documented) at patient's floor/unit and/or counseling patient: Coding Level of Care Code 76347 Subseq Hosp Care Lvl 3 Diagnoses Gross hematuria R31.0 Bladder cancer C67.9
[2020-12-06] MEDS: VENLAFAXINE HCL XR 150 MG CAPXR PO SCH (20:33)
[2020-12-06] MEDS: ATORVASTATIN 40 MG TAB PO SCH (20:33)
[2020-12-06] MEDS: TAMSULOSIN HCL 0.4 MG CAP PO SCH (20:33)
[2020-12-06] MEDS: MIRTAZAPINE SOLTAB 15 MG PO SCH (20:34)
[2020-12-06] MEDS: OLANZapine 5 MG TABLET PO SCH (20:35)
[2020-12-06] MEDS: OLANZAPINE 2.5 MG TAB PO SCH (20:35)
[2020-12-06] MEDS: QUEtiapine FUMARATE 25 MG TABLET PO SCH (20:35)
[2020-12-06] MEDS: ALBUT/IPRATROP 3MG/0.5MG NEB 3 ML VIAL NEB PRN (22:05)
[2020-12-07] MEDS: LEVOTHYROXINE SODIUM 112 MCG TABLET PO SCH (05:23)
[2020-12-07 08:26] LABS: Hematocrit (blood only) 27.8 % (42-52); Hemoglobin 9.6 g/dL (14.0-18.0)
[2020-12-07] MEDS: FLUTICASONE/VILANTEROL 200/25MCG 14 PUFFS/INHALER INH SCH (08:29)
[2020-12-07] MEDS: PANTOprazole 40 MG TAB PO SCH (08:30)
[2020-12-07] MEDS: METOPROLOL SUCC 50MG EXT REL TAB PO SCH (08:30)
[2020-12-07] MEDS: POTASSIUM CHLORIDE CRTAB 20 MEQ TABCR PO SCH (08:30)
[2020-12-07] MEDS: INSULIN ASPART 100 UNITS/ML 3 ML PEN SC SCH ×3 (08:36→17:09)
[2020-12-07 08:41] LABS: Calcium 8.5 mg/dl (8.5-10.1); Creatinine Clr Calc Pharmacy 69.6 ml/min; Est GFR (African American) 94.7; Est GFR (Non-African American) 81.7; Potassium 3.9 mmol/L (3.5-5.1)
[2020-12-07] MEDS ORDERED: INSULIN GLARGINE SOLOSTAR 100 UNITS/ML 3 ML PEN SQ SCH (09:00)
--- NOTE | 2020-12-07 16:00 | Discharge Summary ---
Date of Service December 07, 2020 Admission HPI Per Admitting Provider 80 yo male with history of bladder tumors, had TURBT with Dr. Malone several days ago. He said he was recovering well until last night when he had to pee all the time and every time he urinated it was extremely painful. He was urinating blood. The pain was incredibly intense, stabbing pain, would last for minutes every time he had to urinate. He did not have any fever or chills. No chest pain, no dyspnea, no abdominal pain, no nausea/vomiting. He came to the ED last night, early this morning for evaluation. He was hypertensive, afebrile. WBC 12k, hb 12, plts 309k, Cr up slightly at 1.4, electrolytes stable. Glucose markedly elevated, > 500, he admitted to not taking his insulin as prescribed. Case was discussed with urology, they requested to keep patient NPO and ordered no goel to be placed, planned for cystoscopy. Principal Diagnosis Acute kidney injury due to urinary retention from clot in bladder after TURBT Discharge Exam Constitutional well developed and well nourished; no acute distress and no altered mental status Neck trachea midline, no thyromegaly Respiratory normal respiratory effort, lungs clear to auscultation Cardiovascular RRR, no murmur, no edema Gastrointestinal (Abdomen) normal bowel sounds, soft, nontender, no hepatosplenomegaly Musculoskeletal no cyanosis or clubbing, extremities motor strength 5/5 Skin no rashes, warm and dry Neurologic patellar DTR's 2+ bilat, sensation intact and PERRL, EOMI, accommodation nl, no face palsy, no dysarthria Psychiatric A+Ox3, euthymic affect Lymphatic no cervical or axillary lymphadenopathy Discharge Data Allergies Allergy/AdvReac Type Severity Reaction Status Date / Time doxycycline AdvReac Intermediate nausea Verified 12/03/20 04:51 levofloxacin AdvReac Mild fidgety Verified 12/03/20 04:51 and anxiety oxycodone AdvReac Mild NAUSEA AND Verified 12/03/20 04:51 VOMITING Consultations 12/03/20 07:52 ED Decision to Admit Stat 12/03/20 14:32 Consult Urology Routine Procedures Performed Operation Date: 12/03/20 10:45 Actual Procedures p Cystoscopy, Clot Evacuation, Fulguration(Not Applicable) - Elias Brewer MD Ordered Studies 12/03/20 06:15 CT abd pelvis IV con only Stat Hospital Course (1) Acute kidney failure: likely combination of obstructive and dehydration s/p cystoscopy with removal of bladder hematoma goel initially had beck colored urine, then cloudy with dark sediment urine was clear today, goel removed, able to void 200mL total of clear urine discharge to home, follow up closely with Dr. Malone treated with IV fluids initially, stopped three days ago Cr down to 0.8, KEN resolved non-oliguric, making a lot of urine (2) Acute urinary retention: due to hematoma forming after TURBT several days prior, prior use of Plavix s/p cystoscopy with evacuation of bladder hematoma on 12/03 now with goel, draining clear urine the past 24 hours goel pulled this morning, urinated several times, 200mL total no evidence of UTI, stop Cefepime d/c to home, follow up with Dr Malone, continue to hold Plavix until instructed to resume (3) Hypoglycemia: resolved, likely because his diet is better controlled here in the hospital typically no issues at home continue home regimen (4) Gross hematuria: due to bleeding from recent TURBT sites Hb down to 7.4 2/5 transfused one unit PRBC on 12/05, Hb up to 9.6 today continue to hold Plavix (5) Lactic acidosis: due to hypovolemia, dehydration repeat trending down, no need to follow further (6) Acute hyperglycemia: this was on admission without evidence of DKA likely from stress, missing insulin doses corrected quickly with lantus and Novolog (7) Bladder cancer: s/p TURBT, no radiation or chemotherapy (8) GERD without esophagitis: Protonix (9) KENTON (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 Lakhani and Dr. Malone) Discharge Plan Discharge Items Patient Disposition: Home - Self-Care Reason For Visit: UTI, SEPSIS, HYPERGLYCEMIA Discharge Diagnosis: Urinary retention due to hematoma Hyperglycemia Condition on Discharge: Good Activity: Resume your previous activity Non-emergency contact: Primary Care Provider and Urologist Call non-emergency contact if: you have any medication questions, your symptoms worsen and you have a fever Follow-up/Referrals: Maribell Worrell CRNP [Primary Care Provider] - (5-7 days) Cesar Malone MD [Physician] - (1-2 weeks) Diet: Carb Consistent or DM2 Addtl Attending Provider Instructions: Medications: - PLAVIX: continue to hold this due to bleeding concerns, do not resume until instructed that it is okay by Dr. Malone Urinary retention, acute kidney injury, hematuria, clot formation after removal of bladder tumors issue resolved after cystoscopy and removal of clot, bladder irrigation no evidence of UTI on urine culture no further signs of active bleeding, some small specs of clot would be expected renal function is stable, hemoglobin (red blood cell count) is stable continue to hold Plavix to reduce risk of bleeding Dr. Malone's office will call you tomorrow to confirm follow up with him Pending Studies at Discharge: No Stand-Alone Forms: [facility] [employer], Smoking Cessation Medications and DC Order Prescriptions: Continued (DME) OneTouch Ultra Blue Test Strip Strip See Rx Instructions .ROUTE .MEDSUPPLY Qty: 400 RF: 3 insulin aspart U-100 [Novolog Flexpen U-100 Insulin] 100 unit/mL (3 mL) insulin pen 20 unit SQ TID Qty: 30 RF: 5 atorvastatin 40 mg tablet 40 mg PO HS RF: 0 ethambutol [Myambutol] 400 mg tablet 1,200 mg PO .COMPLEX Qty: 36 RF: 3 levothyroxine [Synthroid] 112 mcg tablet 112 mcg PO QAM RF: 0 mirtazapine 45 mg tablet 45 mg PO QPM RF: 0 olanzapine 5 mg tablet 5 mg PO HS Qty: 30 RF: 2 rifampin 300 mg capsule 600 mg PO .COMPLEX Qty: 24 RF: 3 venlafaxine 150 mg capsule,extended release 24hr 150 mg PO HS RF: 0 tamsulosin [Flomax] 0.4 mg capsule 0.4 mg PO QPM Qty: 90 RF: 1 metoprolol succinate 50 mg tablet extended release 24 hr 50 mg PO BID Qty: 60 RF: 11 pantoprazole 20 mg tablet,delayed release (DR/EC) 20 mg PO BID Qty: 60 RF: 11 hydrocodone-homatropine 5-1.5 mg/5 mL (5 mL) syrup 5 ml PO Q6H PRN (Reason: cough) Qty: 473 RF: 0 ondansetron HCl 4 mg tablet 4 mg PO Q8H PRN (Reason: nausea and vomiting) Qty: 30 RF: 4 Hold Instructions: no longer nauseated Lantus Solostar U-100 Insulin 100 unit/mL (3 mL) insulin pen 45 unit SQ QAM RF: 0 quetiapine 100 mg tablet 100 mg PO ONCE HS RF: 0 multivitamin [Daily Multi-Vitamin] Tablet 1 tab PO QAM Qty: 30 RF: 5 olanzapine 2.5 mg tablet 2.5 mg PO HS RF: 0 ferrous sulfate 325 mg (65 mg iron) tablet 325 mg PO DAILY RF: 0 cholecalciferol (vitamin D3) 125 mcg (5,000 unit) capsule 125 mcg PO DAILY RF: 0 Advair HFA 230-21 mcg/actuation HFA aerosol inhaler 2 puff inhalation BID RF: 0 sulfamethoxazole-trimethoprim [Bactrim DS] 800-160 mg tablet 1 tab PO BID Qty: 3 RF: 6 albuterol sulfate 90 mcg/actuation HFA aerosol inhaler 2 puff INHALATION Q6H PRN (Reason: Shortness Of Breath) RF: 0 Discontinued clopidogrel [Plavix] 75 mg tablet 75 mg PO HS RF: 0 Discharge Orders: Discharge Order (Routine); Ordered 12/07/20 Ordered By: Ranjeet Rowell Admission Data Admit Date/Time: 12/03/20 08:14 Attending Provider: Ranjeet Rowell Admit Provider: Ranjeet Rowell Primary Care Provider: Maribell Worrell Other Providers: Ranjeet Rowell ; Cesar Malone Coding Level of Care Code D/C Day Management >30 mins Diagnoses Acute kidney failure N17.9 Acute urinary retention R33.8 Hypoglycemia E16.2 Gross hematuria R31.0 Lactic acidosis E87.2 Acute hyperglycemia R73.9 Bladder cancer C67.9 GERD without esophagitis K21.9 [place]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
--- NOTE | 2020-12-25 10:51 | Coding Query ---
CODING QUERY To promote full compliance with coding requirements relating to patient care, provider participation is requested in all cases of light industrial uncertainty. Please assist us with the question(s) below: Coding Question(s): Please clarify if the hemorrhage was a postprocedural complication. Physician's Response(s): bladder hemorrhage was post-procedural complication from TURBT Thank you Alexandrea Lopez Principal Diagnosis: "that condition established after study, to be chiefly responsible for occasioning the admission of the patient to the hospital for care." Co-Existing Principal Diagnosis: "when two or more diagnoses equally meet the criteria for principal diagnosis as determined by the circumstances of admission, diagnostic work up, and/or therapy provided, and the Alphabetic Index, Tabular List, or another coding guideline does not provide sequencing direction, any one of the diagnoses may be sequenced first." "When the physician has documented what appears to be a current diagnosis in the body of the record, but has not included the diagnosis in the final diagnostic statement, the physician should be asked whether the diagnosis should be added." (Source [facility]oding [facility] 2 QTR90. p3-4) SHADY
== END 2020-12-07 17:54 | disposition home or self-care (01) | DRG 988 ==
LOC: ED 04:04 → 2N 08:14 → ASU 11:30

== ENCOUNTER 2023-11-16 13:24 | Observation (INO) ==
--- NOTE | 2023-11-16 13:36 | ED Triage Note ---
Date of Service November 16, 2023 Provider in Triage Author: Cali Engel. History of Present Illness This patient was briefly evaluated while in triage. An abbreviated physical exam was performed. This patient is a 83-year-old Male who presents to the ED for evaluation of shortness of breath that began acutely last night when he was trying to go to sleep. [place] nauseous at the time. No vomiting. No chest pain. Does not always feel short of breath. Has a chronic cough. No leg pain or leg swelling. No history of PE or DVT. No history of afib. No blood thinners Physical Exam CONSTITUTIONAL: in no acute pain or distress, resting comfortably SKIN: pink, warm, dry CARDIAC: tachycardic rate and slightly irregular rhythm. No edema in b/l lower extremities RESPIRATORY: in no respiratory distress, lungs clear to auscultation Initial orders for labs and / or imaging were placed and patient was placed in the waiting area until a bed is available. Please see further documentation for the full ED course.
--- NOTE | 2023-11-16 14:07 | Emergency Department Note ---
Impression & Plan SOB (shortness of breath), Elevated troponin I level, Acute hyperglycemia ED Provider Note NAME: CARA VERA AGE: 83 SEX: M : 1940 ARRIVES VIA: Walk-In INFORMANT: Patient, ED PROVIDER(S): Fritz Betancourt DO CHIEF COMPLAINT: Difficulty breathing HPI: The patient is an 83-year-old male who presented to the emergency department at the request of his primary care physician for an evaluation. The patient states that around midnight last night he awoke with not feeling well. He went to see the provider in his clinic today and was sent to the emergency department for further evaluation. Apparently patient did have some nausea but at this time he denies having any nausea or difficulty breathing. He denies having any chest pain or lower extremity swelling. He denies having any fever but he did take Tylenol today. The patient denies having any trauma. He states has been compliant with his outpatient medications. ROS: See above HPI for pertinent positives & negatives. A total of 10 systems reviewed and were otherwise negative. PAST MEDICAL HISTORY: See Below PAST SURGICAL HISTORY: See Below FAMILY HISTORY: See Below SOCIAL HISTORY: See Below HOME MEDICATIONS: See Below ALLERGIES: See Below VITALS: See Below PHYSICAL EXAMINATION: GENERAL: Patient is awake alert in no acute distress patient is resting comfortably and showing no signs of anxiety EYES: The conjunctivae are clear. The pupils are round and reactive. EARS, NOSE, MOUTH AND THROAT: The nose is without any evidence of any deformity. NECK: The neck is nontender and supple. RESPIRATORY: Normal respiratory effort is noted there is no evidence of wheezing rhonchi or rales CARDIOVASCULAR: Regular rate and rhythm noted there no murmurs rubs or gallops normal S1 normal S2. GASTROINTESTINAL: The abdomen is soft. Abdomen is nontender. MUSCULOSKELETAL/EXTREMITIES: There is no evidence of gross deformity full range of motion is noted in the hips and shoulders. SKIN: There is no obvious evidence of any rash. There is no pedal edema or calf tenderness elicited. NEUROLOGIC: Patient is awake alert and oriented x3 MEDICAL DECISION MAKING: The patient is an 83-year-old male that presented to the emergency department for an evaluation of difficulty breathing. The patient was seen by his primary care physician and then sent to the emergency department for further evaluation. Given his age and comorbidities further laboratory and radiographic studies were obtained. Chest x-ray does not appear to show any acute process although there could be some worsening of his previously noted lung abnormalities. He was found to have an elevation in his D-dimer. He was also found to have an elevation in his troponin. For this reason I discussed patient's laboratory and radiographic studies with the on-call [facility]. They have agreed to evaluate the patient in the emergency department for further management and disposition. Triage Nursing notes reviewed. Prior medical records reviewed Vital Signs: reviewed and remarkable for initial tachycardia. Differential diagnosis: Reactive airway disease, pneumonia, pneumothorax, COPD, CHF, infections, cardiac ischemia, pulmonary embolism, musculoskeletal, gastrointestinal, as well as other pathologies. ER treatment provided: See below Diagnostics interpreted by me: ECG: EKG was obtained in the emergency department. My interpretation is sinus tachycardia at 105 bpm. There is no ectopy. There is no acute ST segment abnormalities noted. This was compared to a tracing from March 14, 2022. No significant changes were noted. Cardiac Monitoring: An order was placed for continuous cardiac monitoring. The monitor shows a rate of 82 bpm with sinus rhythm Laboratory studies: As stated above and show below. Imaging studies: See below. Radiographic imaging was reviewed by myself Consultation(s): I discussed this case with Dr. Villa who is on-call for the [facility] group. He will evaluate the patient in the emergency department for further management and disposition Past Med/Surg History Medical History (Updated 11/16/23 @ 17:58 by Wallace Richter MD) Dyspnea Troponin level elevated On anticoagulant therapy plavix daily Gastroparesis Hypoglycemia Intractable abdominal pain Lactic acidosis Gross hematuria hx of CVA (cerebral vascular accident) 03/2017. Continues on Plavix. Afib Single episode 09/2017 in setting of acute illness. No known reoccurance. Poor historian Pt reports some issues with recall/memory. Diabetes mellitus IDDM, uncontrolled -- A1C 9%, followed by endo Nausea Chronic, intermittent. KENTON (mycobacterium avium-intracellulare) infection Has been evaluated by ID (started on triple ABX therapy fall 2018), following with pulmonology. Previously had a severe chronic cough but now feels this has mostly resolved on medications. 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 History of stroke Versus TIA, history is unclear, but pt continues on Clopidogrel. Pulmonary nodules Irritable bowel syndrome Iron deficiency anemia Insomnia Hypothyroidism GERD without esophagitis Dyslipidemia Diabetic peripheral neuropathy Very mild Depression Anxiety Cancer H/O BLADDER CA/TURBT- NO CHEMO OR RADIATION Chronic obstructive pulmonary disease Asthma inhaler daily/prn, nebulizer prn Surgical History History of cystoscopy 12/03/20 @ [facility] History of esophagogastroduodenoscopy (EGD) History of cataract surgery left and right History of colonoscopy (~2011) Diverticulosis History of tonsillectomy History of bladder surgery TURBT= 11/01/17= [facility] 2, MAC 3.0, ETT 8.0 AT [facility] H/O lumbar discectomy Family History Mother Family history of diabetes mellitus Myocardial infarction Father Myocardial infarction Other No family history of bleeding disorder Denies family history of Ovarian cancer Prostate cancer Breast cancer Colorectal cancer Social History Smoking Status: Former smoker Tobacco Type: Cigarettes Second Hand Exposure: No; Do You Dip or Chew Tobacco: No; Hx Alcohol Use: No Hx Substance Use: No Preferred Language: Martiniquais Communication Ability: Effective Visual Impairment: No Limitations Engineering Technician Required: No Beliefs That Will Affect Care: None marital status: Current Living Situation: Alone Feels Safe at Home: Yes caffeine: Yes Dental Care, Regularly: Yes Physical Activity Frequency: Does not Exercise Seatbelt Use: always Sunscreen Use: No Assistive Devices: Denture - Lower and Glasses Allergies Allergies Allergy/AdvReac Type Severity Reaction Status Date / Time doxycycline AdvReac Intermediate nausea Verified 11/16/23 11:20 levofloxacin AdvReac Mild fidgety Verified 11/16/23 11:20 and anxiety oxycodone AdvReac Mild NAUSEA AND Verified 11/16/23 11:20 VOMITING Home Meds Home Medications Medication Instructions Recorded Confirmed mirtazapine 45 mg tablet 45 mg PO HS 03/24/21 11/16/23 venlafaxine 150 mg 150 mg PO HS 03/24/21 11/16/23 capsule,extended release 24 hr lactobacillus combination no.8 3 3,000 mmu cells PO HS 01/28/23 11/16/23 billion cell capsule Previous Rx's Medication Instructions Recorded nebulizer accessories #1 ea 12/08/21 nebulizer and tubing #1 ea 12/08/21 clopidogrel 75 mg tablet (Plavix) 75 mg PO HS #30 tabs 01/07/23 albuterol sulfate 90 mcg/actuation 2 puff inhalation Q4H PRN 01/17/23 aerosol inhaler Shortness Of Breath #18 grams olanzapine 2.5 mg tablet 2.5 mg PO QPM #20 tabs 01/18/23 ferrous sulfate 325 mg (65 mg 325 mg PO DAILY@1200 #30 tabs 02/17/23 iron) tablet Tirosint 125 mcg capsule 125 mcg PO QAM #30 caps 03/03/23 (levothyroxine) cholecalciferol (vitamin D3) 125 125 mcg PO DAILY@1200 #30 caps 03/03/23 mcg (5,000 unit) capsule insulin glargine 100 unit/mL (3 See Rx Instructions subcut QAM #60 03/23/23 mL) subcutaneous pen (Lantus mL Solostar U-100 Insulin) multivitamin (Daily Multi-Vitamin 1 tab PO QAM #30 tabs 03/29/23 tablet) tamsulosin 0.4 mg capsule (Flomax) 0.4 mg PO QPM #90 caps 04/26/23 atorvastatin 40 mg tablet 40 mg PO HS #30 tabs 06/14/23 fluticasone fur. 100 mcg-umeclid 1 inh inhalation DAILY #28 ea 07/06/23 62.5 mcg-vilant 25 mcg inhalat.powder (Trelegy Ellipta) blood sugar diagnostic (OneTouch #500 ea 07/08/23 Verio test strips) pen needle, diabetic 32 gauge x #500 ea 07/11/2332" (BD Ultra-Fine Miranda Pen Needle) albuterol sulfate 2.5 mg/3 mL See Rx Instructions .Route 09/06/23 (0.083 %) solution for nebulization .COMPLEX #180 mL ondansetron 4 mg disintegrating 4 mg PO Q8H PRN nausea and 09/27/23 tablet vomiting #30 tabs codeine 10 mg-guaifenesin 100 mg/5 5 ml PO Q6H PRN For Cough #473 mL 10/05/23 mL oral liquid Novolog FlexPen U-100 Insulin 100 20 unit (0.2 mL) subcut TID #30 mL 10/06/23 unit/mL (3 mL) subcutaneous (insulin aspart U-100) metoprolol succinate 50 mg 50 mg PO BIDM #60 tabs 10/19/23 tablet,extended release 24 hr pantoprazole 20 mg tablet,delayed 20 mg PO BIDM #60 tabs 11/02/23 release carbamide peroxide 6.5 % ear drops 5 drp otic (ear) BID 4 days #15 mL 11/16/23 (Debrox) Results & Data (ED) Vital Signs Vital Signs - 24 hr 11/16/23 13:30 11/16/23 13:56 11/16/23 13:58 Temperature 36.8 C Temperature Source Temporal Artery Scan Pulse Rate 108 H Pulse Rate [Apical] Pulse Rate from SpO2 Sensor Respiratory Rate 18 Respiratory Effort / Characteristics Non-Labored Spontaneous Non-Labored Respiratory Depth Normal Normal Respiratory Pattern Regular Regular Blood Pressure 135/67 Blood Pressure [Left Arm] Blood Pressure Mean 89 Blood Pressure Mean [Left Arm] Blood Pressure Position Sitting Pulse Oximetry 96 92 Oxygen Delivery Method Room Air Room Air Oxygen Flow Rate 0 Sepsis Recent Fever Within 48 Hours No Sepsis New/Unexplained Change in Mental Status No Sepsis Action Taken by Nursing No Action Required 11/16/23 13:59 11/16/23 14:00 11/16/23 14:00 Temperature Temperature Source Pulse Rate 97 H 97 H 100 H Pulse Rate [Apical] Pulse Rate from SpO2 Sensor 96 H 100 H Respiratory Rate 24 24 Respiratory Effort / Characteristics Respiratory Depth Respiratory Pattern Blood Pressure 147/83 H 144/80 H Blood Pressure [Left Arm] Blood Pressure Mean 104 101 Blood Pressure Mean [Left Arm] Blood Pressure Position Pulse Oximetry 95 96 Oxygen Delivery Method Oxygen Flow Rate Sepsis Recent Fever Within 48 Hours Sepsis New/Unexplained Change in Mental Status Sepsis Action Taken by Nursing 11/16/23 14:08 11/16/23 14:30 11/16/23 15:00 Temperature Temperature Source Pulse Rate 93 H 90 Pulse Rate [Apical] Pulse Rate from SpO2 Sensor 93 H 90 Respiratory Rate 23 23 Respiratory Effort / Characteristics Respiratory Depth Respiratory Pattern Blood Pressure 141/80 H 157/83 H Blood Pressure [Left Arm] Blood Pressure Mean 100 107 Blood Pressure Mean [Left Arm] Blood Pressure Position Pulse Oximetry 100 96 98 Oxygen Delivery Method Room Air Oxygen Flow Rate Sepsis Recent Fever Within 48 Hours Sepsis New/Unexplained Change in Mental Status Sepsis Action Taken by Nursing 11/16/23 19:19 Temperature 36.5 C Temperature Source Oral Pulse Rate Pulse Rate [Apical] 82 Pulse Rate from SpO2 Sensor Respiratory Rate 20 Respiratory Effort / Characteristics Respiratory Depth Respiratory Pattern Blood Pressure Blood Pressure [Left Arm] 146/87 H Blood Pressure Mean Blood Pressure Mean [Left Arm] 106 Blood Pressure Position Pulse Oximetry 97 Oxygen Delivery Method Room Air Oxygen Flow Rate Sepsis Recent Fever Within 48 Hours Sepsis New/Unexplained Change in Mental Status Sepsis Action Taken by [facility] Medications Current Medication List: was personally reviewed by me Laboratory Data Attestation: I reviewed the patient's lab results. 11/16/23 13:52 11/16/23 13:52 Lab Results 11/16/23 11/16/23 11/16/23 Range/Units 13:52 14:03 15:45 WBC 7.15 (4.8-10.8) K/ul RBC 4.53 L (4.70-6.10) M/uL Hgb 13.6 L (14.0-18.0) g/dl Hct 39.5 L (42.0-52.0) % MCV 87.2 (80.0-100.0) fL MCH 30.0 (25.0-34.0) pg MCHC 34.4 (32.0-36.0) g/dL RDW Std Deviation 40.2 (36.4-46.3) fL RDW Coeff of Yulissa 12.7 (11.5-14.5) % Plt Count 273 (130-400) K/uL MPV 9.2 L (9.4-12.4) fL Immature Gran % (Auto) 0.3 % Neut % (Auto) 79.8 % Lymph % (Auto) 9.9 % [place] % (Auto) 9.0 % Eos % (Auto) 0.7 % Baso % (Auto) 0.3 % Neut # (Auto) 5.71 (1.40-6.50) K/uL Lymph # (Auto) 0.71 L (1.20-3.40) K/uL [place] # (Auto) 0.64 H (0.11-0.59) K/uL Eos # (Auto) 0.05 (0.00-0.50) K/uL Baso # (Auto) 0.02 (0.00-0.20) K/uL Immature Gran # (Auto) 0.02 (0.01-0.20) K/uL PT 10.9 (9.0-12.0) Seconds INR 1.0 (0.9-1.1) APTT 30 (21-31) Seconds PTT Ratio 1.1 D-Dimer 4430 H* (0-500) ug/L FEU Sodium 135 L (136-145) mmol/L Potassium 4.6 (3.5-5.1) mmol/L Chloride 98 (98-107) mmol/L Carbon Dioxide 29 (21-32) mmol/L Anion Gap 8 (3-11) BUN 20 (6-23) mg/dl Creatinine 1.26 (0.6-1.4) mg/dl Est Cr Clr Drug Dosing Not Reportable Est GFR ( Amer) 61.2 ml/min Est GFR (Non-Af Amer) 52.8 ml/min BUN/Creatinine Ratio 15.9 (10-20) Glucose 417 H* (70-99(Fasting)) mg/dl POC Glucose (70-99) mg/dl Calcium 9.9 (8.6-10.3) mg/dl Magnesium 1.7 (1.7-2.4) mg/dl Total Bilirubin 0.4 (0.2-1.0) mg/dl AST 21 (13-39) U/L ALT 17 (7-52) U/L Alkaline Phosphatase 113 H (34-104) U/L Troponin I High Sens 47.4 H 48.1 H (0-20) pg/ml Total Protein 7.6 (6.0-8.3) gm/dl Albumin 4.1 (3.4-5.0) gm/dl Globulin 3.5 (2.5-4.0) gm/dl Albumin/Globulin Ratio 1.2 (0.9-2) TSH 0.598 (0.300-4.500) uIu/ml Urine Color Urine Appearance (Clear) Urine pH (4.5-7.5) Ur Specific [place] (1.000-1.030) Urine Protein (Negative) Urine Glucose (UA) (Negative) Urine Ketones (Negative) Urine Blood (Negative) Urine Nitrite (Negative) Urine Bilirubin (Negative) Urine Urobilinogen (Negative) Ur Leukocyte Esterase (Negative) Adenovirus (PCR) Not Detected (NotDetected) B. pertussis DNA (PCR) Not Detected (NotDetected) B.parapertussis DNA PCR Not Detected (NotDetected) C. pneumoniae DNA (PCR) Not Detected (NotDetected) Coronavirus OC43 (PCR) Not Detected (NotDetected) Coronavirus HKU1 (PCR) Not Detected (NotDetected) Coronavirus 229E (PCR) Not Detected (NotDetected) SARS-CoV-2 (PCR) Not Detected (NotDetected) Coronavirus NL63 (PCR) Not Detected (NotDetected) Human Metapneumovir PCR Not Detected (NotDetected) Influenza Type A (PCR) Not Detected (NotDetected) Influenza Type B (PCR) Not Detected (NotDetected) M. pneumoniae (PCR) Not Detected (NotDetected) Parainfluenza 1 (PCR) Not Detected (NotDetected) Parainfluenza 2 (PCR) Not Detected (NotDetected) Parainfluenza 3 (PCR) Not Detected (NotDetected) Parainfluenza 4 (PCR) Not Detected (NotDetected) RSV (PCR) Not Detected (NotDetected) Entero/Rhino (PCR) Not Detected (NotDetected) 11/16/23 11/16/23 11/16/23 Range/Units 16:07 16:48 17:50 WBC (4.8-10.8) K/ul RBC (4.70-6.10) M/uL Hgb (14.0-18.0) g/dl Hct (42.0-52.0) % MCV (80.0-100.0) fL MCH (25.0-34.0) pg MCHC (32.0-36.0) g/dL RDW Std Deviation (36.4-46.3) fL RDW Coeff of Yulissa (11.5-14.5) % Plt Count (130-400) K/uL MPV (9.4-12.4) fL Immature Gran % (Auto) % Neut % (Auto) % Lymph % (Auto) % [place] % (Auto) % Eos % (Auto) % Baso % (Auto) % Neut # (Auto) (1.40-6.50) K/uL Lymph # (Auto) (1.20-3.40) K/uL [place] # (Auto) (0.11-0.59) K/uL Eos # (Auto) (0.00-0.50) K/uL Baso # (Auto) (0.00-0.20) K/uL Immature Gran # (Auto) (0.01-0.20) K/uL PT (9.0-12.0) Seconds INR (0.9-1.1) APTT (21-31) Seconds PTT Ratio D-Dimer (0-500) ug/L FEU Sodium (136-145) mmol/L Potassium (3.5-5.1) mmol/L Chloride (98-107) mmol/L Carbon Dioxide (21-32) mmol/L Anion Gap (3-11) BUN (6-23) mg/dl Creatinine (0.6-1.4) mg/dl Est Cr Clr Drug Dosing Est GFR ( Amer) ml/min Est GFR (Non-Af Amer) ml/min BUN/Creatinine Ratio (10-20) Glucose (70-99(Fasting)) mg/dl POC Glucose 187 H 110 H 122 H (70-99) mg/dl Calcium (8.6-10.3) mg/dl Magnesium (1.7-2.4) mg/dl Total Bilirubin (0.2-1.0) mg/dl AST (13-39) U/L ALT (7-52) U/L Alkaline Phosphatase (34-104) U/L Troponin I High Sens (0-20) pg/ml Total Protein (6.0-8.3) gm/dl Albumin (3.4-5.0) gm/dl Globulin (2.5-4.0) gm/dl Albumin/Globulin Ratio (0.9-2) TSH (0.300-4.500) uIu/ml Urine Color Urine Appearance (Clear) Urine pH (4.5-7.5) Ur Specific [place] (1.000-1.030) Urine Protein (Negative) Urine Glucose (UA) (Negative) Urine Ketones (Negative) Urine Blood (Negative) Urine Nitrite (Negative) Urine Bilirubin (Negative) Urine Urobilinogen (Negative) Ur Leukocyte Esterase (Negative) Adenovirus (PCR) (NotDetected) B. pertussis DNA (PCR) (NotDetected) B.parapertussis DNA PCR (NotDetected) C. pneumoniae DNA (PCR) (NotDetected) Coronavirus OC43 (PCR) (NotDetected) Coronavirus HKU1 (PCR) (NotDetected) Coronavirus 229E (PCR) (NotDetected) SARS-CoV-2 (PCR) (NotDetected) Coronavirus NL63 (PCR) (NotDetected) Human Metapneumovir PCR (NotDetected) Influenza Type A (PCR) (NotDetected) Influenza Type B (PCR) (NotDetected) M. pneumoniae (PCR) (NotDetected) Parainfluenza 1 (PCR) (NotDetected) Parainfluenza 2 (PCR) (NotDetected) Parainfluenza 3 (PCR) (NotDetected) Parainfluenza 4 (PCR) (NotDetected) RSV (PCR) (NotDetected) Entero/Rhino (PCR) (NotDetected) 11/16/23 11/16/23 Range/Units 18:09 19:06 WBC (4.8-10.8) K/ul RBC (4.70-6.10) M/uL Hgb (14.0-18.0) g/dl Hct (42.0-52.0) % MCV (80.0-100.0) fL MCH (25.0-34.0) pg MCHC (32.0-36.0) g/dL RDW Std Deviation (36.4-46.3) fL RDW Coeff of Yulissa (11.5-14.5) % Plt Count (130-400) K/uL MPV (9.4-12.4) fL Immature Gran % (Auto) % Neut % (Auto) % Lymph % (Auto) % [place] % (Auto) % Eos % (Auto) % Baso % (Auto) % Neut # (Auto) (1.40-6.50) K/uL Lymph # (Auto) (1.20-3.40) K/uL [place] # (Auto) (0.11-0.59) K/uL Eos # (Auto) (0.00-0.50) K/uL Baso # (Auto) (0.00-0.20) K/uL Immature Gran # (Auto) (0.01-0.20) K/uL PT (9.0-12.0) Seconds INR (0.9-1.1) APTT (21-31) Seconds PTT Ratio D-Dimer (0-500) ug/L FEU Sodium (136-145) mmol/L Potassium (3.5-5.1) mmol/L Chloride (98-107) mmol/L Carbon Dioxide (21-32) mmol/L Anion Gap (3-11) BUN (6-23) mg/dl Creatinine (0.6-1.4) mg/dl Est Cr Clr Drug Dosing Est GFR ( Amer) ml/min Est GFR (Non-Af Amer) ml/min BUN/Creatinine Ratio (10-20) Glucose (70-99(Fasting)) mg/dl POC Glucose 134 H (70-99) mg/dl Calcium (8.6-10.3) mg/dl Magnesium (1.7-2.4) mg/dl Total Bilirubin (0.2-1.0) mg/dl AST (13-39) U/L ALT (7-52) U/L Alkaline Phosphatase (34-104) U/L Troponin I High Sens (0-20) pg/ml Total Protein (6.0-8.3) gm/dl Albumin (3.4-5.0) gm/dl Globulin (2.5-4.0) gm/dl Albumin/Globulin Ratio (0.9-2) TSH (0.300-4.500) uIu/ml Urine Color Yellow Urine Appearance Clear (Clear) Urine pH 6.5 (4.5-7.5) Ur Specific [place] > 1.045 H (1.000-1.030) Urine Protein Negative (Negative) Urine Glucose (UA) 2+ H (Negative) Urine Ketones Negative (Negative) Urine Blood Negative (Negative) Urine Nitrite Negative (Negative) Urine Bilirubin Negative (Negative) Urine Urobilinogen Negative (Negative) Ur Leukocyte Esterase Negative (Negative) Adenovirus (PCR) (NotDetected) B. pertussis DNA (PCR) (NotDetected) B.parapertussis DNA PCR (NotDetected) C. pneumoniae DNA (PCR) (NotDetected) Coronavirus OC43 (PCR) (NotDetected) Coronavirus HKU1 (PCR) (NotDetected) Coronavirus 229E (PCR) (NotDetected) SARS-CoV-2 (PCR) (NotDetected) Coronavirus NL63 (PCR) (NotDetected) Human Metapneumovir PCR (NotDetected) Influenza Type A (PCR) (NotDetected) Influenza Type B (PCR) (NotDetected) M. pneumoniae (PCR) (NotDetected) Parainfluenza 1 (PCR) (NotDetected) Parainfluenza 2 (PCR) (NotDetected) Parainfluenza 3 (PCR) (NotDetected) Parainfluenza 4 (PCR) (NotDetected) RSV (PCR) (NotDetected) Entero/Rhino (PCR) (NotDetected) Administered Medications Discontinued Medications Sodium Chloride (Nss) 500 mls @ 999 mls/hr IV .Q31M ONE Stop: 11/16/23 15:07 Last Infusion: 11/16/23 15:27 Dose: Infused Documented By: Admin: 11/16/23 14:54 Dose: 999 mls/hr Documented By: MAICO Insulin Human Regular (Novolin-R Insulin Per Unit Charge) 6 units IV NOW STA Stop: 11/16/23 15:04 Last Admin: 11/16/23 15:39 Dose: 6 units Documented By: MAICO Co-signed By: JAZZY Ioversol (Optiray 320 125ml) 116 ml IV ONCE ONE Stop: 11/16/23 16:44 Last Admin: 11/16/23 16:43 Dose: 116 ml Documented By: KANDACE Imaging Data Attestation: I personally reviewed and interpreted this imaging study as follows: My Impression: 1 view chest x-ray was obtained in the emergency department. My interpretation is no free air, there appears to be some chronic inflammatory process noted. Final report below Radiologist's Impression: Chest X-Ray 11/16/23 13:37 SINGLE VIEW CHEST CLINICAL HISTORY: Dyspnea. FINDINGS: 2 AP, portable, upright chest radiographs are compared to study 12/25/2022 and correlated with chest CT dated 06/04/2022. The cardiomediastinal silhouette is top normal for projection noting atherosclerotic calcification of the thoracic aorta. Emphysematous change is again noted. Chronic interstitial thickening and nodularity is similar previous and suggests a chronic infectious/inflammatory pneumonitis. No superimposed airspace consolidation or pleural effusion is identified. No pneumothorax is seen. The skeletal structures are osteopenic. There are healed left-sided rib fractures. IMPRESSION: Mild emphysema and chronic parenchymal changes as above. 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 No superimposed airspace consolidation or pleural effusion is identified. ACT 112: Negative or not required by law. Electronically signed by: Vega Johnston M.D. 11/16/2023 2:24 PM Chest CTA 11/16/23 15:57 CT angio chest PE protocol CT DOSE: 598.42 mGy.cm HISTORY: 83 years-old Male with PE. Acute shortness of breath TECHNIQUE: Multiple CTA images of the chest were obtained after the intravenous administration of 116 ml Optiray. Coronal and sagittal MIPS were obtained from the axial data set and were submitted for review. All measurements were obtained according to NASCET criteria. A dose lowering technique was utilized adhering to the principles of ALARA. COMPARISON: CTA chest 06/04/2022, CT abdomen and pelvis 12/25/2021 FINDINGS: CTA: The heart is normal in size without pericardial effusion. Moderate coronary artery calcifications. Dilation of the aortic root measures up to 4.2 cm. Atherosclerosis of the aorta. No pulmonary emboli identified. 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 CT CHEST: No thyroid nodule or pathologically enlarged lymph nodes identified. Borderline enlarged subcarinal lymph node measures 10 mm. No pneumothorax, pleural effusion or overt pulmonary edema. Multifocal tree-in-bud nodules with areas of mucous plugging and lingular prominent bronchiectasis redemonstrated which has been present on numerous prior exams. The extent of disease has mildly worsened compared to the 2021 study. No acute upper abdominal abnormality. Probable small cyst of the superior pole left kidney. Indeterminate 1.8 cm hypodense left hepatic lobe lesion suggested. This may also be artifactual. Unremarkable soft tissues. No acute fracture. IMPRESSION: 1. No pulmonary emboli identified. 2. 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 3. No pleural effusion. ACT 112: Negative or not required by law. The above report was generated using voice recognition software. It may contain grammatical, syntax or spelling errors. Electronically signed by: Boy Griffith M.D. 11/16/2023 4:53 PM Discharge Plan Visit Data Chief Complaint: Shortness of Breath/Dyspnea Stated Complaint: heart racing, sob, nauseous ED Provider: Fritz Betancourt Discharge Problem: SOB (shortness of breath), Elevated troponin I level, Acute hyperglycemia Patient Disposition: Being Evaluated by Hospitalist Forms Stand Alone Forms: [facility] Prescriptions Prescriptions: No Action mirtazapine 45 mg tablet 45 mg PO HS Rx Instructions: ordered by Dr. Mckeon venlafaxine 150 mg capsule,extended release 24hr 150 mg PO HS Rx Instructions: Ordered by Dr. Mckeon clopidogrel [Plavix] 75 mg tablet 75 mg PO HS Qty: 30 11RF albuterol sulfate 90 mcg/actuation HFA aerosol inhaler 2 puff INHALATION Q4H PRN (Reason: Shortness Of Breath) Qty: 18 11RF olanzapine 2.5 mg tablet 2.5 mg PO QPM Qty: 20 0RF Rx Instructions: temp increase dose till see Dr Mckeon ferrous sulfate 325 mg (65 mg iron) tablet 325 mg PO DAILY@1200 Qty: 30 11RF Rx Instructions: 325 mg PO AT NOON levothyroxine [Tirosint] 125 mcg capsule 125 mcg PO QAM Qty: 30 11RF Rx Instructions: brand necessary cholecalciferol (vitamin D3) 125 mcg (5,000 unit) capsule 125 mcg PO DAILY@1200 Qty: 30 11RF Rx Instructions: 125 mcg PO AT NOON insulin glargine [Lantus Solostar U-100 Insulin] 100 unit/mL (3 mL) insulin pen See Rx Instructions SQ QAM Qty: 60 2RF Rx Instructions: 45 units subcut QAM; slowly titrate up to 60 units QD; TDD 60 units multivitamin [Daily Multi-Vitamin] Tablet 1 tab PO QAM Qty: 30 11RF tamsulosin [Flomax] 0.4 mg capsule 0.4 mg PO QPM Qty: 90 3RF atorvastatin 40 mg tablet 40 mg PO HS Qty: 30 11RF (DME) OneTouch Verio test strips Strip See Rx Instructions .ROUTE .MEDSUPPLY Qty: 500 3RF Rx Instructions: test BS 5 times a day (DME) pen needle, diabetic [BD Ultra-Fine Miranda Pen Needle] 32 gauge x 5/32" needle See Dose Instructions .ROUTE .MEDSUPPLY Qty: 500 3RF Rx Instructions: use up to 5 a day to administer insulin albuterol sulfate 2.5 mg /3 mL (0.083 %) solution for nebulization See Rx Instructions .ROUTE .COMPLEX Qty: 180 6RF Dose Instruction: INHALE 1 VIAL VIA NEBULIZER FOUR TIMES A DAY NEEDED FOR SHORTNESS OF BREATH OR WHEEZING Rx Instructions: INHALE 1 VIAL VIA NEBULIZER FOUR TIMES A DAY NEEDED FOR SHORTNESS OF BREATH OR WHEEZING codeine-guaifenesin 10-100 mg/5 mL liquid 5 ml PO Q6H PRN (Reason: For Cough) Qty: 473 0RF Rx Instructions: 5 ML every 6HR as needed for coughing metoprolol succinate 50 mg tablet extended release 24 hr 50 mg PO BIDM Qty: 60 11RF Rx Instructions: 50 mg PO TWICE A DAY IN A.M. AND SUPPER pantoprazole 20 mg tablet,delayed release (DR/EC) 20 mg PO BIDM Qty: 60 11RF Rx Instructions: 20 mg PO TWICE DAILY ONCE IN A.M. AND ONCE AT SUPPER; (DME) nebulizer and tubing See Rx Instructions .Route .MEDSUPPLY Qty: 1 0RF Rx Instructions: use 2-3 times a day. PLEASE INSTRUCT ON USE. Use- 99 yrs (DME) nebulizer accessories Kit See Rx Instructions .Route Qty: 1 0RF Rx Instructions: Use 2-3 times a day Dx:J44.9 Use=99 years Trelegy Ellipta 100-62.5-25 mcg blister with device 1 inh inhalation DAILY Qty: 28 11RF insulin aspart U-100 [Novolog FlexPen U-100 Insulin] 100 unit/mL (3 mL) insulin pen 20 unit SQ TID Qty: 30 5RF Rx Instructions: Takes usually 8-12 units per meal with sliding scale. Debrox 6.5 % drops 5 drp otic (ear) BID 4 Days Qty: 15 0RF ondansetron 4 mg tablet,disintegrating 4 mg PO Q8H PRN (Reason: nausea and vomiting) Qty: 30 3RF Rx Instructions: pt d/c phenergan lactobacillus combination no.8 3 billion cell capsule 3,000 mmu cells PO HS Rx Instructions: administer with a meal Referrals Referrals: Maribell Worrell CRNP [Primary Care Provider] -
--- NOTE | 2023-11-16 14:26 | XRay Report ---
SINGLE VIEW CHEST CLINICAL HISTORY: Dyspnea. FINDINGS: 2 AP, portable, upright chest radiographs are compared to study 12/25/2022 and correlated wi th chest CT dated 06/04/2022. The cardiomediastinal silhouette is top normal for projection noting athe rosclerotic calcification of the thoracic aorta. Emphysematous change is again noted. Chronic interst itial thickening and nodularity is similar previous and suggests a chronic infectious/inflammatory pn eumonitis. No superimposed airspace consolidation or pleural effusion is identified. No pneumothorax is seen. The skeletal structures are osteopenic. There are healed left-sided rib fractures. IMPRESSION: Mild emphysema and chronic parenchymal changes as above. 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 No superimposed airspac e consolidation or pleural effusion is identified. ACT 112: Negative or not required by law. Electronically signed by: Vega Johnston M.D. 11/16/2023 2:24 PM
[2023-11-16 14:27] LABS: Basophils # (auto) 0.02 K/uL (0.00-0.20); Basophils % (auto) 0.3 %; Eosinophils # (auto) 0.05 K/uL (0.00-0.50); Eosinophils % (auto) 0.7 %; Hematocrit (blood only) 39.5 % (42.0-52.0); Hemoglobin 13.6 g/dl (14.0-18.0); Immature Granulocytes # (auto) 0.02 K/uL (0.01-0.20); Immature Granulocytes % (auto) 0.3 %; Lymphocytes # (auto) 0.71 K/uL (1.20-3.40); Lymphocytes % (auto) 9.9 %; Mean Corpuscular Hgb Conc 34.4 g/dL (32.0-36.0); Mean Corpuscular Volume 87.2 fL (80.0-100.0); Mean Platelet Volume 9.2 fL (9.4-12.4); Monocytes # (auto) 0.64 K/uL (0.11-0.59); Neutrophils # (auto) 5.71 K/uL (1.40-6.50); Neutrophils % (auto) 79.8 %; Platelet Count 273 K/uL (130-400); RDW Coefficient of Variation 12.7 % (11.5-14.5); RDW Standard Deviation 40.2 fL (36.4-46.3); Red Blood Count 4.53 M/uL (4.70-6.10); White Blood Count 7.15 K/ul (4.8-10.8)
[2023-11-16 14:35] LABS: Glucose 417 mg/dl (70-99(Fasting))
[2023-11-16 14:37] LABS: Alanine Aminotransferase 17 U/L (7-52); Albumin Globulin Ratio 1.2 (0.9-2); Albumin Level 4.1 gm/dl (3.4-5.0); Alkaline Phosphatase 113 U/L (34-104); Anion Gap 8 (3-11); Aspartate Aminotransferase 21 U/L (13-39); BUN Creatinine Ratio 15.9 (10-20); Bilirubin,Total 0.4 mg/dl (0.2-1.0); Blood Urea Nitrogen 20 mg/dl (6-23); Calcium 9.9 mg/dl (8.6-10.3); Carbon Dioxide 29 mmol/L (21-32); Chloride 98 mmol/L (98-107); Est GFR (African American) 61.2 ml/min; Est GFR (Non-African American) 52.8 ml/min; Globulin 3.5 gm/dl (2.5-4.0); Magnesium 1.7 mg/dl (1.7-2.4); Potassium 4.6 mmol/L (3.5-5.1); Sodium 135 mmol/L (136-145); Total Protein 7.6 gm/dl (6.0-8.3); Troponin I High Sensitivity 47.4 pg/ml (0-20)
[2023-11-16] MEDS ORDERED: SODIUM CHLORIDE 0.9% 500 ML IV ONE (14:37)
[2023-11-16 14:42] LABS: Partial Thromboplastin Ratio 1.1; Partial Thromboplastin Time 30 Seconds (21-31); Prothrombin Time 10.9 Seconds (9.0-12.0)
[2023-11-16 15:01] LABS: Thyroid Stimulating Hormone 0.598 uIu/ml (0.300-4.500)
[2023-11-16] MEDS ORDERED: NovoLIN-R INSULIN PER UNIT CHARGE IV STA (15:03)
[2023-11-16 15:09] LABS: Adenovirus PCR Not Detected (NotDetected); Bordetella parapertussis PCR Not Detected (NotDetected); Bordetella pertussis PCR Not Detected (NotDetected); Chlamydia pneumoniae PCR Not Detected (NotDetected); Coronavirus 229E PCR Not Detected (NotDetected); Coronavirus CoV-2 (COVID19)PCR Not Detected (NotDetected); Coronavirus HKU1 PCR Not Detected (NotDetected); Coronavirus NL63 PCR Not Detected (NotDetected); Coronavirus OC43PCR Not Detected (NotDetected); Human Metapneumovirus PCR Not Detected (NotDetected); Influenza A PCR Not Detected (NotDetected); Influenza B PCR Not Detected (NotDetected); Mycoplasma pneumoniae PCR Not Detected (NotDetected); Parainfluenza Virus 1 PCR Not Detected (NotDetected); Parainfluenza Virus 2 PCR Not Detected (NotDetected); Parainfluenza Virus 3 PCR Not Detected (NotDetected); Parainfluenza Virus 4 PCR Not Detected (NotDetected); Respiratory Syncytial VirusPCR Not Detected (NotDetected); Rhinovirus/Enterovirus PCR Not Detected (NotDetected)
[2023-11-16] MEDS ORDERED: DEXTROSE 50% 50 ML SYRINGE IV PRN (15:35)
[2023-11-16] MEDS ORDERED: CARBOHYDRATES FOR HYPOGLYCEMIA PO PRN (15:35)
[2023-11-16] MEDS ORDERED: PHARMACY GLYCEMIC MGMT CONSULT PRN (15:35)
[2023-11-16] MEDS ORDERED: GLUCAGON FOR INJ 1 MG VIAL SQ PRN (15:35)
[2023-11-16] MEDS ORDERED: GLUCOSE 40% GEL 15 GM TUBE PO PRN (15:35)
[2023-11-16] MEDS ORDERED: GLUCOSE 10 TAB/TUBE PO PRN (15:35)
--- NOTE | 2023-11-16 15:41 | History & Physical Report ---
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 Recurrent sx last 24 hours Denies chest pain, chest pressure. Denies pleuritic pain. Does feel as he is much more short of breath with exertion than normal. No leg injuries or other trauma. No leg swelling - 98% on RA, heart rate regular. D-dimer 4430, patient reports he is not on any blood thinners but does take Plavix CTA with no evidence of PE, with evidence as KENTON. - MAC discussed further as belownono G sputum production, no fever, no chills, no leukocytosis and is satting normally on room air without symptoms at rest. 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 Stable 07/21 - Sputum 05/2022 enterobacter, no AFB+. Improved with bactrim. - CT followup 07/2023 with increased bronchiectatic changes and t-i-b opacities suspicious for KENTON, sputum culture positive for MAC. Declined tx at that time due to very poor GI tolerance. Repeat CT Diffuse tree-in-bud nodules with mucous plugging and mild lingular predominant bronchiectasis redemonstrated, similar to mildly worsened compared to the 06/04/2022 study compatible with a chronic infectious or inflammatory pneumonitis/bronchiolitis such as mycobacterium avium (KENTON). - Pt is a limited historian. Daughter Charlotte called for collateral, msg went to [employer]. Callback number left. -Discussed w/ pulm. Hypertonic saline, chest vest. nebs. Sputum culture pending. No bronch currently indicated. Recommend ID consult for antibiotic recs, e specially given poor tolerance to triple tx. Followup outpatient with Dr. Stroud. ID consulted. Appreciate recs (3) COPD (chronic obstructive pulmonary disease): Plan: COPD Patient reports he does not have a history of COPD, but does use inhalers for his breathing. Chart review with COPD as existing dx prior to 2018 and prior to MAC tx. No PFTs available for review Home inhalers continued Duonebs PRN - No wheezing on admitting exam. Steroids deferred. Abx deferred pending pulm consultation. (4) Diabetes mellitus: Plan: Type II DM Poorly controlled as outpatient Repeat A1c is pending Hyperglycemic at 417 on admission, patient did take his morning insulin both short and long-acting. Received 6 units of IV insulin for BSG of 417 in the ER, rapidly improved with blood sugar in the 100s Discussed with nursing staff to monitor closely for hypoglycemia, every hour checks x 3 with dextrose on-call. Will transition to basal bolus insulin based on home basal requirement 45 units (patient confirms this is what he is taking and has not uptitrated to 60 as noted in his initial medication comments), glucose checks AC/at bedtime (5) Elevated troponin I level: Plan: Elevated trop - Denies chest pain/pressure/neck pain/shoulder pain at rest and with exertion at time of admit, prior to admit, or in the prior few weeks. - Endorses chronic exertional dyspnea due to pulmonary disease actually improved in the last week since being on pred/azithro in september -EKG: Sinus tachycardia without ischemic change, QTc 396 -No leukocytosis -BSG 417 -High-sensitivity troponin 47.4, repeat pending .Suspect demand. Plan Chronic stable issues: History of bladder cancer. Frequent cystoscopies due to recurrence, following with urology. No acute change in this at this time Hypothyroidism. TSH normal. Continue Synthroid B12/vitamin deficiency. Continue home vitamins Hyperlipidemia. Statin continued Hypertension. Metoprolol continued. Patient denies any history of CHF DVT prophylaxis: Heparin Diet: T2DM CODE STATUS: DNR/DNI Disposition: Med/Tele for dyspnea w/ trop pending trend History of Present Illness Primary Care Provider: RONNIE Santana is an 83-year-old male with a past medical history of type II DM on insulin, paroxysmal A-fib, depression/anxiety, COPD, GERD, and KENTON infection who presents to the emergency department with 1 day of generalized unwellness and fatigue. He was seen by PCP earlier in the morning for cough and congestion with increased shortness of breath atypical of his usual episodes, was seen 10/25 for similar symptoms which improved after a course of azithromycin and prednisone Last night felt nauseus and tired, 'just not right.' Predominant sx was nausea. Feels back to normal 99% at time of ER evaluation. No fevers, chills, or sweats No night sweats, but did not his Tshirt was wet when he woke up for the first time. 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 No dyspnea at rest, but increased dyspnea on exertion since yesterday. 'If I work on the lawn I get short breath normally, but I'd say its getting worse and more in the last week.' He did have a productive cough in the last few weeks, yellow in color last month but has greatly improved since taking prednisone and azithromycin. No diarrhea. No abdominal pain. Took his insulin this morning. Took his long acting this morning 45u lantus along with his breakfast insulin. Uses inhalers for wheezing. Does not think he has a dx of COPD or emphysema. Medical History: Reviewed Medications: Reviewed Surgical History: Reviewed Family history: Reviewed Allergies: Reviewed. Social History: No tobacco or etoh use. Code Status: DNR/DNI. Allergies Allergy/AdvReac Type Severity Reaction Status Date / Time doxycycline AdvReac Intermediate nausea Verified 11/16/23 11:20 levofloxacin AdvReac Mild fidgety Verified 11/16/23 11:20 and anxiety oxycodone AdvReac Mild NAUSEA AND Verified 11/16/23 11:20 VOMITING Home Medications Medication Instructions Recorded Confirmed Type mirtazapine 45 mg tablet 45 mg PO HS 03/24/21 11/16/23 History venlafaxine 150 mg 150 mg PO HS 03/24/21 11/16/23 History capsule,extended release 24 hr nebulizer accessories #1 ea 12/08/21 11/16/23 Rx nebulizer and tubing #1 ea 12/08/21 11/16/23 Rx clopidogrel 75 mg tablet (Plavix) 75 mg PO HS #30 tabs 01/07/23 11/16/23 Rx albuterol sulfate 90 mcg/actuation 2 puff inhalation Q4H PRN 01/17/23 11/16/23 Rx aerosol inhaler Shortness Of Breath #18 grams olanzapine 2.5 mg tablet 2.5 mg PO QPM #20 tabs 01/18/23 11/16/23 Rx lactobacillus combination no.8 3 3,000 mmu cells PO HS 01/28/23 11/16/23 History billion cell capsule ferrous sulfate 325 mg (65 mg 325 mg PO DAILY@1200 #30 tabs 02/17/23 11/16/23 Rx iron) tablet Tirosint 125 mcg capsule 125 mcg PO QAM #30 caps 03/03/23 11/16/23 Rx (levothyroxine) cholecalciferol (vitamin D3) 125 125 mcg PO DAILY@1200 #30 caps 03/03/23 11/16/23 Rx mcg (5,000 unit) capsule insulin glargine 100 unit/mL (3 See Rx Instructions subcut QAM #60 03/23/23 11/16/23 Rx mL) subcutaneous pen (Lantus mL Solostar U-100 Insulin) multivitamin (Daily Multi-Vitamin 1 tab PO QAM #30 tabs 03/29/23 11/16/23 Rx tablet) tamsulosin 0.4 mg capsule (Flomax) 0.4 mg PO QPM #90 caps 04/26/23 11/16/23 Rx atorvastatin 40 mg tablet 40 mg PO HS #30 tabs 06/14/23 11/16/23 Rx fluticasone fur. 100 mcg-umeclid 1 inh inhalation DAILY #28 ea 07/06/23 11/16/23 Rx 62.5 mcg-vilant 25 mcg inhalat.powder (Trelegy Ellipta) blood sugar diagnostic (OneTouch #500 ea 07/08/23 11/16/23 Rx Verio test strips) pen needle, diabetic 32 gauge x #500 ea 07/11/23 11/16/23 Rx 5/32" (BD Ultra-Fine Miranda Pen Needle) albuterol sulfate 2.5 mg/3 mL See Rx Instructions .Route 09/06/23 11/16/23 Rx (0.083 %) solution for nebulization .COMPLEX #180 mL ondansetron 4 mg disintegrating 4 mg PO Q8H PRN nausea and 09/27/23 11/16/23 Rx tablet vomiting #30 tabs codeine 10 mg-guaifenesin 100 mg/5 5 ml PO Q6H PRN For Cough #473 mL 10/05/23 11/16/23 Rx mL oral liquid Novolog FlexPen U-100 Insulin 100 20 unit (0.2 mL) subcut TID #30 mL 10/06/23 11/16/23 Rx unit/mL (3 mL) subcutaneous (insulin aspart U-100) metoprolol succinate 50 mg 50 mg PO BIDM #60 tabs 10/19/23 11/16/23 Rx tablet,extended release 24 hr pantoprazole 20 mg tablet,delayed 20 mg PO BIDM #60 tabs 11/02/23 11/16/23 Rx release carbamide peroxide 6.5 % ear drops 5 drp otic (ear) BID 4 days #15 mL 11/16/23 11/16/23 Rx (Debrox) Past Med/Surg History Medical History (Updated 11/16/23 @ 17:58 by Wallace Richter MD) Dyspnea Troponin level elevated On anticoagulant therapy plavix daily Gastroparesis Hypoglycemia Intractable abdominal pain Lactic acidosis Gross hematuria hx of CVA (cerebral vascular accident) 03/2017. Continues on Plavix. Afib Single episode 09/2017 in setting of acute illness. No known reoccurance. Poor historian Pt reports some issues with recall/memory. Diabetes mellitus IDDM, uncontrolled -- A1C 9%, followed by endo Nausea Chronic, intermittent. KENTON (mycobacterium avium-intracellulare) infection Has been evaluated by ID (started on triple ABX therapy fall 2018), following with pulmonology. Previously had a severe chronic cough but now feels this has mostly resolved on medications. 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 History of stroke Versus TIA, history is unclear, but pt continues on Clopidogrel. Pulmonary nodules Irritable bowel syndrome Iron deficiency anemia Insomnia Hypothyroidism GERD without esophagitis Dyslipidemia Diabetic peripheral neuropathy Very mild Depression Anxiety Cancer H/O BLADDER CA/TURBT- NO CHEMO OR RADIATION Chronic obstructive pulmonary disease Asthma inhaler daily/prn, nebulizer prn Surgical History History of cystoscopy 12/03/20 @ [facility] History of esophagogastroduodenoscopy (EGD) History of cataract surgery left and right History of colonoscopy (~2011) Diverticulosis History of tonsillectomy History of bladder surgery TURBT= 11/01/17= [facility] 2, MAC 3.0, ETT 8.0 AT [facility] H/O lumbar discectomy Family History Mother Family history of diabetes mellitus Myocardial infarction Father Myocardial infarction Other No family history of bleeding disorder Denies family history of Ovarian cancer Prostate cancer Breast cancer Colorectal cancer Social History Smoking Status: Former smoker Tobacco Type: Cigarettes Second Hand Exposure: No; Do You Dip or Chew Tobacco: No; Hx Alcohol Use: No Hx Substance Use: No Preferred Language: Iranian Communication Ability: Effective Visual Impairment: No 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 NAD. Cooperative. HEENT: Atraumatic, normocephalic. Vision/hearing grossly intact. Pulm: CTAB A&P. -wheezes, -rales, -rhonchi. Symmetrical chest rise. No increased work of breathing. No respiratory distress. Cardiac: RRR, soft sm. Radial pulses intact and symmetrical. Abdominal: Nontender, nondistended, soft. BS present. Ext: warm, dry. No swelling Results & Data Results & Data Vital Signs (Past 12 Hours) Vital Signs Temp Pulse Resp BP Pulse Ox O2 Del Method O2 Flow Rate 11/16/23 15:00 90 23 157/83 H 98 11/16/23 14:30 93 H 23 141/80 H 96 11/16/23 14:08 100 Room Air 11/16/23 14:00 100 H 24 144/80 H 96 11/16/23 14:00 97 H 11/16/23 13:59 97 H 24 147/83 H 95 11/16/23 13:58 92 Room Air 0 11/16/23 13:30 36.8 C 108 H 18 135/67 96 Room Air PG Care Time/CCT Total # of Minutes Spent Total Time Spent with Patient: Total time spent is greater than 50% in coordination of care (as documented) at patient's floor/unit and/or counseling patient: Coding Level of Care Code 24888 INT INP/OBS CARE 3/75MIN Diagnoses Dyspnea on exertion R06.09 Mycobacterium avium complex A31.0 COPD (chronic obstructive pulmonary disease) J44.9 COPD type: unspecified COPD Diabetes mellitus E11.9 Elevated troponin I level R79.89 (3) COPD (chronic obstructive pulmonary disease) COPD type: unspecified COPD Qualified Code(s): J44.9 - Chronic obstructive pulmonary disease, unspecified
[2023-11-16 15:54] LABS: D Dimer 4430 ug/L FEU (0-500)
[2023-11-16] MEDS ORDERED: Patient's HEIGHT &/or WEIGHT Needed SCH (16:15)
--- NOTE | 2023-11-16 16:18 | Pharmacy Report ---
Pharmacy Glycemic Short Note 2 - Date of Service November 16, 2023 - Glycemic Short BSG Results (Last 24 hours): 11/16/23 11/16/23 13:52 16:07 Glucose 417 H* POC Glucose 187 H OUTPATIENT ANTIDIABETIC REGIMEN: * Lantus 45 units AM, Novolog 8-12 units TIDM ASSESSMENT: * 83 year old admitted with dyspnea/SOB/nausea. Recently treated with course of antibiotics/prednisone last month. Type 2 diabetic, follows with [facility]. BSGs elevated on admission >400s - given IV insulin bolus in ER. BSGs trending down 180s this afternoon. Per notes, patient already took AM basal dose. Will hold further basal this evening and reassess again in AM PLAN FOR INPATIENT GLYCEMIC CONTROL: * Hold outpatient oral diabetes medications * Basal insulin * Lantus 45 units daily - will assess dosing 11/17 AM * Bolus insulin * NovoLog per scale ACHS or Q6hrs while NPO * Goal Range: Low 110 mg/dL - High 150 mg/dL * Correction Factor: 20 mg/dL/unit * Nutritional / Prandial insulin per carb ratio of 1 unit per 8 grams CHO consumed
[2023-11-16] MEDS ORDERED: INSULIN ASPART PER UNIT CHARGE SC SCH (16:30)
[2023-11-16] MEDS ORDERED: OPTIRAY 320 125ml IV ONE (16:43)
--- NOTE | 2023-11-16 16:55 | CT Scan Report ---
CT angio chest PE protocol CT DOSE: 598.42 mGy.cm HISTORY: 83 years-old Male with PE. Acute shortness of breath TECHNIQUE: Multiple CTA images of the chest were obtained after the intravenous administration of 116 ml Optiray. Coronal and sagittal MIPS were obtained from the axial data set and were submitted for review. All measurements were obtained according to NASCET criteria. A dose lowering technique was u tilized adhering to the principles of ALARA. COMPARISON: CTA chest 06/04/2022, CT abdomen and pelvis 12/25/2021 FINDINGS: CTA: The heart is normal in size without pericardial effusion. Moderate coronary artery calcifications. Di lation of the aortic root measures up to 4.2 cm. Atherosclerosis of the aorta. No pulmonary emboli id entified. 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 CT CHEST: No thyroid nodule or pathologically enlarged lymph nodes identified. Borderline enlarged subcarinal l ymph node measures 10 mm. No pneumothorax, pleural effusion or overt pulmonary edema. Multifocal tree-in-bud nodules with areas of mucous plugging and lingular prominent bronchiectasis redemonstrated which has been present on nu merous prior exams. The extent of disease has mildly worsened compared to the 2021 study. No acute upper abdominal abnormality. Probable small cyst of the superior pole left kidney. Indetermi ralph 1.8 cm hypodense left hepatic lobe lesion suggested. This may also be artifactual. Unremarkable soft tissues. No acute fracture. IMPRESSION: 1. No pulmonary emboli identified. 2. Diffuse tree-in-bud nodules with mucous plugging and mild lingular predominant bronchiectasis rede monstrated, similar to mildly worsened compared to the 06/04/2022 study compatible with a chronic infec tious or inflammatory pneumonitis/bronchiolitis such as mycobacterium avium (K[place]ON). 3. No pleural effusion. ACT 112: Negative or not required by law. The above report was generated using voice recognition software. It may contain grammatical, syntax o r spelling errors. Electronically signed by: Boy Griffith M.D. 11/16/2023 4:53 PM
[2023-11-16 18:22] LABS: Appearance Urine Clear (Clear); Bilirubin Urine Negative (Negative); Blood Urine Negative (Negative); Color Urine Yellow; Glucose Urine UA 2+ (Negative); Ketones Urine Negative (Negative); Leukocyte Esterase Urine Negative (Negative); Nitrite Urine Negative (Negative); Protein Urine Negative (Negative); Specific Gravity Urine > 1.045 (1.000-1.030); Urobilinogen Urine Negative (Negative); pH Urine 6.5 (4.5-7.5)
[2023-11-16] MEDS ORDERED: ACETAMINOPHEN 325 MG TAB PO PRN (20:57)
[2023-11-16] MEDS ORDERED: ONDANSETRON 4 MG OD TAB PO PRN (20:57)
[2023-11-16] MEDS ORDERED: ALBUT/IPRATROP 3MG/0.5MG NEB 3 ML VIAL NEB PRN (20:57)
[2023-11-16] MEDS ORDERED: LANTUS PER UNIT CHARGE SQ SCH (21:00)
[2023-11-16] MEDS ORDERED: ATORVASTATIN 40 MG TAB PO SCH (21:00)
[2023-11-16] MEDS ORDERED: MIRTAZAPINE SOLTAB 15 MG PO SCH (21:00)
[2023-11-16] MEDS ORDERED: CLOPIDOGREL BISULFATE 75 MG TAB PO SCH (21:00)
[2023-11-16] MEDS ORDERED: TAMSULOSIN HCL 0.4 MG CAP PO SCH (21:00)
[2023-11-16] MEDS ORDERED: VENLAFAXINE HCL XR 150 MG CAPXR PO SCH (21:00)
[2023-11-16] MEDS ORDERED: OLANZAPINE 2.5 MG TAB PO SCH (21:00)
[2023-11-16] MEDS: guaiFENesin 600 MG TABCR PO SCH (21:27)
[2023-11-16] MEDS: INSULIN ASPART PER UNIT CHARGE SC SCH (21:39)
[2023-11-16] MEDS: SODIUM CHLOR 7% 4 ML NEB NEB SCH (23:12)
[2023-11-17] MEDS ORDERED: LEVOTHYROXINE SODIUM 125 MCG TABLET PO SCH (06:30)
--- NOTE | 2023-11-17 06:59 | Hospitalist Progress Note ---
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 Recurrent sx last 24 hours Denies chest pain, chest pressure. Denies pleuritic pain. Does feel as he is much more short of breath with exertion than normal. No leg injuries or other trauma. No leg swelling - 98% on RA, heart rate regular. D-dimer 4430, patient reports he is not on any blood thinners but does take Plavix CTA with no evidence of PE, with evidence as [place]. - MAC discussed further as belownono G sputum production, no fever, no chills, no leukocytosis and is satting normally on room air without symptoms at rest. 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 Stable 07/21 - Sputum 05/2022 enterobacter, no AFB+. Improved with bactrim. - CT followup 07/2023 with increased bronchiectatic changes and t-i-b opacities suspicious for K[place], sputum culture positive for MAC. Declined tx at that time due to very poor GI tolerance. Repeat CT Diffuse tree-in-bud nodules with mucous plugging and mild lingular predominant bronchiectasis redemonstrated, similar to mildly worsened compared to the 06/04/2022 study compatible with a chronic infectious or inflammatory pneumonitis/bronchiolitis such as mycobacterium avium (K[place]). - Pt is a limited historian. Daughter Charlotte called for collateral, msg went to [employer]. Callback number left. -Discussed w/ pulm. Hypertonic saline, chest vest. nebs. Sputum culture pending. No bronch currently indicated. Recommend ID consult for antibiotic recs, especially given poor tolerance to triple tx. Followup outpatient with Dr. Stroud. ID consulted. Appreciate recs (3) COPD (chronic obstructive pulmonary disease): Plan: COPD Patient reports he does not have a history of COPD, but does use inhalers for his breathing. Chart review with COPD as existing dx prior to 2018 and prior to MAC tx. No PFTs available for review Home inhalers continued Duonebs PRN - No wheezing on admitting exam. Steroids deferred. Abx deferred pending pulm consultation. (4) Diabetes mellitus: Plan: Type II DM Poorly controlled as outpatient Repeat A1c is pending Hyperglycemic at 417 on admission, patient did take his morning insulin both short and long-acting. Received 6 units of IV insulin for BSG of 417 in the ER, rapidly improved with blood sugar in the 100s Discussed with nursing staff to monitor closely for hypoglycemia, every hour checks x 3 with dextrose on-call. Will transition to basal bolus insulin based on home basal requirement 45 units (patient confirms this is what he is taking and has not uptitrated to 60 as noted in his initial medication comments), glucose checks AC/at bedtime (5) Elevated troponin I level: Plan: Elevated trop - Denies chest pain/pressure/neck pain/shoulder pain at rest and with exertion at time of admit, prior to admit, or in the prior few weeks. - Endorses chronic exertional dyspnea due to pulmonary disease actually improved in the last week since being on pred/azithro in september -EKG: Sinus tachycardia without ischemic change, QTc 396 -No leukocytosis -BSG 417 -High-sensitivity troponin 47.4, repeat pending .Suspect demand. Plan Chronic stable issues: History of bladder cancer. Frequent cystoscopies due to recurrence, following with urology. No acute change in this at this time Hypothyroidism. TSH normal. Continue Synthroid B12/vitamin deficiency. Continue home vitamins Hyperlipidemia. Statin continued Hypertension. Metoprolol continued. Patient denies any history of CHF DVT prophylaxis: Heparin Diet: T2DM CODE STATUS: DNR/DNI Disposition: Med/Tele for dyspnea w/ trop pending trend Admission and Anticipated Discharge Date Admission Date: November 16, 2023 Results & Data Results & Data Vital Signs (Past 12 Hours) Vital Signs Temp Pulse Pulse Resp BP Pulse Ox O2 Del Method 11/17/23 03:27 36.5 C 93 H 20 150/78 H 92 Room Air 11/16/23 23:45 84 11/16/23 23:30 Room Air 11/16/23 23:30 36.7 C 96 H 18 180/89 H 93 Room Air 11/16/23 23:12 79 18 94 Room Air 11/16/23 21:31 36.5 C 84 20 150/72 H 96 Room Air 11/16/23 21:25 83 11/16/23 21:14 79 19 97 Room Air 11/16/23 19:19 36.5 C 82 20 146/87 H 97 Room Air (3) COPD (chronic obstructive pulmonary disease) COPD type: unspecified COPD Qualified Code(s): J44.9 - Chronic obstructive pulmonary disease, unspecified
[2023-11-17] MEDS: SODIUM CHLOR 7% 4 ML NEB NEB SCH (07:28)
[2023-11-17 07:49] LABS: Estimated Average Glucose 237 mg/dl; Hemoglobin A1C 9.9 % (4.5-5.6)
[2023-11-17 07:56] LABS: Basophils # (auto) 0.03 K/uL (0.00-0.20); Basophils % (auto) 0.5 %; Eosinophils # (auto) 0.22 K/uL (0.00-0.50); Eosinophils % (auto) 3.3 %; Hematocrit (blood only) 37.7 % (42.0-52.0); Hemoglobin 12.9 g/dl (14.0-18.0); Immature Granulocytes # (auto) 0.02 K/uL (0.01-0.20); Immature Granulocytes % (auto) 0.3 %; Lymphocytes # (auto) 1.21 K/uL (1.20-3.40); Lymphocytes % (auto) 18.3 %; Mean Corpuscular Hemoglobin 29.9 pg (25.0-34.0); Mean Corpuscular Hgb Conc 34.2 g/dL (32.0-36.0); Mean Corpuscular Volume 87.3 fL (80.0-100.0); Monocytes # (auto) 0.87 K/uL (0.11-0.59); Monocytes % (auto) 13.2 %; Neutrophils # (auto) 4.25 K/uL (1.40-6.50); Neutrophils % (auto) 64.4 %; Platelet Count 233 K/uL (130-400); RDW Coefficient of Variation 12.5 % (11.5-14.5); RDW Standard Deviation 40.1 fL (36.4-46.3); Red Blood Count 4.32 M/uL (4.70-6.10)
[2023-11-17] MEDS ORDERED: PANTOprazole 40 MG TAB PO SCH (08:00)
[2023-11-17] MEDS ORDERED: METOPROLOL SUCC 50MG EXT REL TAB PO SCH (08:00)
[2023-11-17 08:14] LABS: BUN Creatinine Ratio 15.8 (10-20); Calcium 9.4 mg/dl (8.6-10.3); Creatinine Clr Calc Pharmacy 47.8 ml/min; Est GFR (African American) 64.9 ml/min; Potassium 4.1 mmol/L (3.5-5.1)
[2023-11-17] MEDS: guaiFENesin 600 MG TABCR PO SCH (08:16)
[2023-11-17] MEDS: INSULIN ASPART PER UNIT CHARGE SC SCH ×2 (08:57→12:42)
[2023-11-17] MEDS ORDERED: NON-FORMULARY MEDICATION (Fluticasone-Umeclidin-Vilanter [Trelegy Ellipta] 100-62.5-25 mcg INH SCH (09:00)
[2023-11-17] MEDS ORDERED: UMECLIDINIUM/VILANTEROL 62.5/25MCG 7 PUFFS/INHALER INH SCH (09:00)
[2023-11-17] MEDS ORDERED: LANTUS PER UNIT CHARGE SC SCH (09:00)
[2023-11-17] MEDS ORDERED: HEPARIN SOD 5,000 UNIT/0.5 ML VIAL SQ SCH (09:00)
[2023-11-17] MEDS ORDERED: FLUTICASONE FUROATE 100MCG 14 PUFFS/INHALER INH SCH (09:00)
--- NOTE | 2023-11-17 09:11 | Infectious Disease Consult ---
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 He was seen by his PCP earlier that morning where he reported cough, congestion, some shortness of breath. He denied fevers/chills. COVID-19 and flu were negative. Of note, he had been seen by his PCP on 10/25 with symptoms of cough, shortness of breath, fatigue, and was treated with a course of prednisone and azithromycin, with improvement. On presentation, pt was afebrile, saturating well on room air. Labs showed no leukocytosis. RVP negative. UA negative. CXR with mild emphysema, chronic interstitial thickening and nodularity similar to prior and suggesting a chronic infectious/inflammatory pneumonitis. CTA chest showed no PE, diffuse tree-in-bud nodules with mucous plugging and mild lingular predominant bronchiectasis redemonstrated, similar to mildly worsened compared to 06/04/2022 study compatible with a chronic infectious or inflammatory pneumonitis/bronchiolitis such as KENTON. ID was consulted for evaluation for pulmonary MAC. On 11/17, pt reported his breathing was improved and he felt back to normal. He reported a chronic cough without recent worsening, sometimes productive of phlegm. Denies hemoptysis, weight loss, fevers. He does not remember his prior MAC treatment. For his pulmonary MAC, he first saw Dr. Menjivar of [facility] on 08/22/19. At that time, he had chronic cough for several months, intermittently productive with yellow sputum, no hemoptysis, no fevers, some GOMEZ. An AFB sputum culture from 07/11/2019 grew MAC. A CTA chest from 09/14/2018 showed tree-in-bud nodules. Pt was treated with azithro 500 mg three times weekly, ethambutol 1200 mg three times weekly, and rifampin 600 mg three times weekly from 07/2019 - 02/2021, and completed ~18 months of therapy. I do not see any sputum cultures while on treatment demonstrating clearance of MAC from the cultures. Per notes from Dr. Velez, the treatment was stopped due to GI intolerance. A CTA chest on 06/04/22 showed diffuse tree-in-bud nodularity throughout both lungs with mild groundglass change and mucous plugging, suggesting a chronic infectious/inflammatory process such as KENTON, modestly worsened compared to 08/2018. Sputum cultures from 06/09/22 showed Enterobacter cloacae, MAC. Per Dr. Velez's note from 07/22/22, the pt was not interested in restarting KENTON treatment at that time because he tolerated it poorly in the past. He last saw Dr. Velez on 07/06/23. Micro: 11/17 Sputum AFB smear, cx: pending 11/17 Sputum cx: pending. GS--GPCs, GPRs, GNRs 11/16 RVP: negtive 06/09/22 Sputum AFB smear neg, cx MAC 06/09/22 Sputum cx: Enterobacter cloacae 07/11/19 Sputum cx: MAC 03/20/19 Sputum AFB cx: Mycobacterium gordonae Abx: none Problems: #Dypnsea: resolved #Pulmonary MAC Discussion: I discussed with Dr. Velez by phone. Uncertain whether pt's recent acute dyspnea is related to worsening MAC. He has not received antibiotics, MAC therapy, or steroids and feels back to his baseline today. His CTA chest shows similar to mildly worsened findings of tree-in-bud nodules, mucus plugging, bronchiectasis. 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 Per discussion with Dr. Velez and hospitalist Dr. Guillen, given his clinical improvement, will manage as possible COPD exacerbation for now, and have him follow-up as an outpatient to discuss starting MAC treatment. Recommendations: -Ordered a sputum AFB culture. If MAC again grows, would request susceptibi lities. It appears that he received a course of azithromycin in 09/2023--uncertain how frequently he receives these courses, but could raise concern of MAC developing resistance to azithromycin. -Follow-up bacterial sputum culture -Please arrange for follow-up with Dr. Velez and ID locally -If pt continues to be symptomatic, would consider initiation of MAC therapy as outpatient with azithromycin 500 mg three times weekly, ethambutol 25 mg/kg three times weekly, and rifampin 600 mg three times weekly -As above, please send MAC for susceptibility testing -Obtain baseline eye exam and then every 3 months while on ethambutol -To monitor for clinical response, would obtain a sputum AFB culture every 1- 2 months initially. Would continue treatment until sputum cultures have been consecutively negative for at least 12 months. Will sign off. Please page [facility] Call Center with further questions. Consultation Information Consultation was provided via telemedicine using two-way real-time interactive telecommunication between the patient and the telemedicine provider. For the duration of the visit, the provider was performing the assessment from a different facility than the patient. This includesuse of bluetooth stethoscope forauscultationperformed by the telepresenter that the telemedicine provider can hear if described in the physical exam. Leather Coverer contact information: Please call [facility] . 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 He was seen by his PCP earlier that morning where he reported cough, congestion, some shortness of breath. He denied fevers/chills. COVID-19 and flu were negative. Of note, he had been seen by his PCP on 10/25 with symptoms of cough, shortness of breath, fatigue, and was treated with a course of prednisone and azithromycin, with improvement. On presentation, pt was afebrile, HR 120, hypertensive, RR 18, saturating well on room air. Labs showed no leukocytosis. RVP negative. UA negative. CXR with mild emphysema, chronic interstitial thickening and nodularity similar to prior and suggesting a chronic infectious/inflammatory pneumonitis. CTA chest showed no PE, diffuse tree-in-bud nodules with mucous plugging and mild lingular predominant bronchiectasis redemonstrated, similar to mildly worsened compared to 06/04/2022 study compatible with a chronic infectious or inflammatory pneumonitis/bronchiolitis such as KENTON. Pt reports his breathing is better and he feels back to normal. He has a chronic cough, no recent worsening, sometimes productive of phlegm. Denies hemoptysis, weight loss, fevers. He does not remember his prior MAC treatment. For his pulmonary MAC, he first saw Dr. Menjivar of [place] on 08/22/19. At that time, he had chronic cough for several months, intermittently productive with yellow sputum, no hemoptysis, no fevers, some GOMEZ. An AFB sputum culture from 07/11/2019 grew MAC. A CTA chest from 09/14/2018 showed tree-in-bud nodules. Pt was treated with azithro 500 mg three times weekly, ethambutol 1200 mg three times weekly, and rifampin 600 mg three times weekly from 07/2019 - 02/2021, and completed ~18 months of therapy. Per notes, the treatment was stopped due to GI intolerance. A CTA chest on 06/04/22 showed diffuse tree-in-bud nodularity throughout both lungs with mild groundglass change and mucous plugging, suggesting a chronic infectious/inflammatory process such as KENTON, modestly worsened compared to 08/2018. Sputum cultures from 06/09/22 showed Enterobacter cloacae, MAC. Per Dr. Velez's note from 07/22/22, the pt was not interested in restarting KENTON treatment at that time because he tolerated it poorly in the past. He last saw Dr. Velez on 07/06/23. Allergies Allergy/AdvReac Type Severity Reaction Status Date / Time doxycycline AdvReac Intermediate nausea Verified 11/16/23 11:20 levofloxacin AdvReac Mild fidgety Verified 11/16/23 11:20 and anxiety oxycodone AdvReac Mild NAUSEA AND Verified 11/16/23 11:20 VOMITING Home Medications Medication Instructions Recorded Confirmed Type mirtazapine 45 mg tablet 45 mg PO HS 03/24/21 11/16/23 History venlafaxine 150 mg 150 mg PO HS 03/24/21 11/16/23 History capsule,extended release 24 hr nebulizer accessories #1 ea 12/08/21 11/16/23 Rx nebulizer and tubing #1 ea 12/08/21 11/16/23 Rx clopidogrel 75 mg tablet (Plavix) 75 mg PO HS #30 tabs 01/07/23 11/16/23 Rx albuterol sulfate 90 mcg/actuation 2 puff inhalation Q4H PRN 01/17/23 11/16/23 Rx aerosol inhaler Shortness Of Breath #18 grams olanzapine 2.5 mg tablet 2.5 mg PO QPM #20 tabs 01/18/23 11/16/23 Rx lactobacillus combination no.8 3 3,000 mmu cells PO HS 01/28/23 11/16/23 History billion cell capsule ferrous sulfate 325 mg (65 mg 325 mg PO DAILY@1200 #30 tabs 02/17/23 11/16/23 Rx iron) tablet Tirosint 125 mcg capsule 125 mcg PO QAM #30 caps 03/03/23 11/16/23 Rx (levothyroxine) cholecalciferol (vitamin D3) 125 125 mcg PO DAILY@1200 #30 caps 03/03/23 11/16/23 Rx mcg (5,000 unit) capsule insulin glargine 100 unit/mL (3 See Rx Instructions subcut QAM #60 03/23/23 11/16/23 Rx mL) subcutaneous pen (Lantus mL Solostar U-100 Insulin) multivitamin (Daily Multi-Vitamin 1 tab PO QAM #30 tabs 03/29/23 11/16/23 Rx tablet) tamsulosin 0.4 mg capsule (Flomax) 0.4 mg PO QPM #90 caps 04/26/23 11/16/23 Rx atorvastatin 40 mg tablet 40 mg PO HS #30 tabs 06/14/23 11/16/23 Rx fluticasone fur. 100 mcg-umeclid 1 inh inhalation DAILY #28 ea 07/06/23 11/16/23 Rx 62.5 mcg-vilant 25 mcg inhalat.powder (Trelegy Ellipta) blood sugar diagnostic (OneTouch #500 ea 07/08/23 11/16/23 Rx Verio test strips) pen needle, diabetic 32 gauge x #500 ea 07/11/23 11/16/23 Rx 5/32" (BD Ultra-Fine Miranda Pen Needle) albuterol sulfate 2.5 mg/3 mL See Rx Instructions .Route 09/06/23 11/16/23 Rx (0.083 %) solution for nebulization .COMPLEX #180 mL ondansetron 4 mg disintegrating 4 mg PO Q8H PRN nausea and 09/27/23 11/16/23 Rx tablet vomiting #30 tabs codeine 10 mg-guaifenesin 100 mg/5 5 ml PO Q6H PRN For Cough #473 mL 10/05/23 11/16/23 Rx mL oral liquid Novolog FlexPen U-100 Insulin 100 20 unit (0.2 mL) subcut TID #30 mL 10/06/23 11/16/23 Rx unit/mL (3 mL) subcutaneous (insulin aspart U-100) metoprolol succinate 50 mg 50 mg PO BIDM #60 tabs 10/19/23 11/16/23 Rx tablet,extended release 24 hr pantoprazole 20 mg tablet,delayed 20 mg PO BIDM #60 tabs 11/02/23 11/16/23 Rx release carbamide peroxide 6.5 % ear drops 5 drp otic (ear) BID 4 days #15 mL 11/16/23 11/16/23 Rx (Debrox) Patient History Medical History (Updated 11/16/23 @ 17:58 by Wallace Richter MD) Dyspnea Troponin level elevated On anticoagulant therapy plavix daily Gastroparesis Hypoglycemia Intractable abdominal pain Lactic acidosis Gross hematuria hx of CVA (cerebral vascular accident) 03/2017. Continues on Plavix. Afib Single episode 09/2017 in setting of acute illness. No known reoccurance. Poor historian Pt reports some issues with recall/memory. Diabetes mellitus IDDM, uncontrolled -- A1C 9%, followed by endo Nausea Chronic, intermittent. KENTON (mycobacterium avium-intracellulare) infection Has been evaluated by ID (started on triple ABX therapy fall 2018), following with pulmonology. Previously had a severe chronic cough but now feels this has mostly resolved on medications. 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 History of stroke Versus TIA, history is unclear, but pt continues on Clopidogrel. Pulmonary nodules Irritable bowel syndrome Iron deficiency anemia Insomnia Hypothyroidism GERD without esophagitis Dyslipidemia Diabetic peripheral neuropathy Very mild Depression Anxiety Cancer H/O BLADDER CA/TURBT- NO CHEMO OR RADIATION Chronic obstructive pulmonary disease Asthma inhaler daily/prn, nebulizer prn Surgical History History of cystoscopy 12/03/20 @ [facility] History of esophagogastroduodenoscopy (EGD) History of cataract surgery left and right History of colonoscopy (~2011) Diverticulosis History of tonsillectomy History of bladder surgery TURBT= 11/01/17= [facility] 2, MAC 3.0, ETT 8.0 AT [facility] H/O lumbar discectomy Family History Mother Family history of diabetes mellitus Myocardial infarction Father Myocardial infarction Other No family history of bleeding disorder Denies family history of Ovarian cancer Prostate cancer Breast cancer Colorectal cancer Social History Smoking Status: Former smoker Tobacco Type: Cigarettes Second Hand Exposure: No; Do You Dip or Chew Tobacco: No; Hx Alcohol Use: No Hx Substance Use: No Preferred Language: Jamaican Communication Ability: Effective Visual Impairment: No Limitations Fence Machine Operator Required: No Beliefs That Will Affect Care: None marital status: Current Living Situation: Alone Feels Safe at Home: Yes Safety Concerns: Feels Safe At This Time caffeine: Yes Dental Care, Regularly: Yes Physical Activity Frequency: Does not Exercise Seatbelt Use: always Sunscreen Use: No Assistive Devices: Glasses Review of System A complete ROS was performed and is negative except as mentioned in the HPI. Physical Exam Physical Exam: GEN: elderly man in NAD. HEENT: Normocephalic, atraumatic. RESP: No increased work of breathing, lungs clear to auscultation bilaterally ABD: Soft, non-distended. Non-tender to palpation. EXT: No LE edema. Warm, well-perfused. SKIN: No lesions or rashes on exposed skin. NEURO: Alert and oriented. Answers all questions appropriately. Speech not slurred. PSYCH: Normal mood, affect appropriate. Results & Data Vital Signs (Past 12 Hours) Vital Signs Temp Pulse Pulse Resp BP Pulse Ox O2 Del Method 11/17/23 08:09 36.5 C 86 16 133/76 92 Room Air 11/17/23 07:41 91 H 11/17/23 07:32 81 14 91 Room Air 11/17/23 07:31 Room Air 11/17/23 03:27 36.5 C 93 H 20 150/78 H 92 Room Air 11/16/23 23:45 84 11/16/23 23:30 Room Air 11/16/23 23:30 36.7 C 96 H 18 180/89 H 93 Room Air 11/16/23 23:12 79 18 94 Room Air 11/16/23 21:31 36.5 C 84 20 150/72 H 96 Room Air 11/16/23 21:25 83 11/16/23 21:14 79 19 97 Room Air FiO2 11/17/23 08:09 11/17/23 07:41 11/17/23 07:32 21 11/17/23 07:31 11/17/23 03:27 11/16/23 23:45 11/16/23 23:30 11/16/23 23:30 11/16/23 23:12 11/16/23 21:31 11/16/23 21:25 11/16/23 21:14 Laboratory Results Short CBC 11/16/23 11/17/23 Range/Units 13:52 07:02 WBC 7.15 6.60 (4.8-10.8) K/ul Hgb 13.6 L 12.9 L (14.0-18.0) g/dl Hct 39.5 L 37.7 L (42.0-52.0) % Plt Count 273 233 (130-400) K/uL BMP 11/16/23 11/17/23 13:52 07:02 Sodium 135 L 137 Potassium 4.6 4.1 Chloride 98 101 Carbon Dioxide 29 28 BUN 20 19 Creatinine 1.26 1.20 Glucose 417 H* 157 H Calcium 9.9 9.4 Liver Function 11/16/23 Range/Units 13:52 Total Bilirubin 0.4 (0.2-1.0) mg/dl AST 21 (13-39) U/L ALT 17 (7-52) U/L Alkaline Phosphatase 113 H (34-104) U/L Albumin 4.1 (3.4-5.0) gm/dl Urine 11/16/23 Range/Units 18:09 Urine Color Yellow Urine Appearance Clear (Clear) Urine pH 6.5 (4.5-7.5) Ur Specific [place] > 1.045 H (1.000-1.030) Urine Protein Negative (Negative) Urine Glucose (UA) 2+ H (Negative) Diagnostic Findings Chest X-Ray 11/16/23 13:37 SINGLE VIEW CHEST CLINICAL HISTORY: Dyspnea. FINDINGS: 2 AP, portable, upright chest radiographs are compared to study 12/25/2022 and correlated with chest CT dated 06/04/2022. The cardiomediastinal silhouette is top normal for projection noting atherosclerotic calcification of the thoracic aorta. Emphysematous change is again noted. Chronic interstitial thickening and nodularity is similar previous and suggests a chronic infectious/inflammatory pneumonitis. No superimposed airspace consolidation or pleural effusion is identified. No pneumothorax is seen. The skeletal structures are osteopenic. There are healed left-sided rib fractures. IMPRESSION: Mild emphysema and chronic parenchymal changes as above. 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 No superimposed airspace consolidation or pleural effusion is identified. ACT 112: Negative or not required by law. Electronically signed by: Vega Johnston M.D. 11/16/2023 2:24 PM Chest CTA 11/16/23 15:57 CT angio chest PE protocol CT DOSE: 598.42 mGy.cm HISTORY: 83 years-old Male with PE. Acute shortness of breath TECHNIQUE: Multiple CTA images of the chest were obtained after the intravenous administration of 116 ml Optiray. Coronal and sagittal MIPS were obtained from the axial data set and were submitted for review. All measurements were obtained according to NASCET criteria. A dose lowering technique was utilized adhering to the principles of ALARA. COMPARISON: CTA chest 06/04/2022, CT abdomen and pelvis 12/25/2021 FINDINGS: CTA: The heart is normal in size without pericardial effusion. Moderate coronary artery calcifications. Dilation of the aortic root measures up to 4.2 cm. Atherosclerosis of the aorta. No pulmonary emboli identified. 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 CT CHEST: No thyroid nodule or pathologically enlarged lymph nodes identified. Borderline enlarged subcarinal lymph node measures 10 mm. No pneumothorax, pleural effusion or overt pulmonary edema. Multifocal tree-in-bud nodules with areas of mucous plugging and lingular prominent bronchiectasis redemonstrated which has been present on numerous prior exams. The extent of disease has mildly worsened compared to the 2021 study. No acute upper abdominal abnormality. Probable small cyst of the superior pole left kidney. Indeterminate 1.8 cm hypodense left hepatic lobe lesion suggested. This may also be artifactual. Unremarkable soft tissues. No acute fracture. IMPRESSION: 1. No pulmonary emboli identified. 2. 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 3. No pleural effusion. ACT 112: Negative or not required by law. The above report was generated using voice recognition software. It may contain grammatical, syntax or spelling errors. Electronically signed by: Boy Griffith M.D. 11/16/2023 4:53 PM Medications Administered Current Inpatient Medications Acetaminophen (Acetaminophen 325 Mg Tab) 650 mg PO Q4H PRN PRN Reason: Pain or Fever Stop: 12/16/23 20:56 Last Admin: 11/17/23 04:32 Dose: 650 mg Albuterol (Albut/Ipratrop 3mg/0.5mg Neb 3 Ml Vial) 3 ml NEB Q4R PRN; Protocol PRN Reason: wheezing/sob Stop: 12/16/23 20:56 Atorvastatin Calcium (Atorvastatin 40 Mg Tab) 40 mg PO HS NICKI Stop: 12/16/23 20:59 Last Admin: 11/16/23 21:27 Dose: 40 mg Clopidogrel Bisulfate (Clopidogrel Bisulfate 75 Mg Tab) 75 mg PO HS NICKI Stop: 12/16/23 20:59 Last Admin: 11/16/23 21:27 Dose: 75 mg Dextrose (Dextrose 50% 50 Ml Syringe) 25 - 50 ml IV UD PRN; Protocol PRN Reason: Hypoglycemia Protocol Stop: 12/16/23 15:34 Fluticasone Furoate (Fluticasone Furoate 100mcg 14 Puffs/Inhaler) 1 puffs INH DAILY NICKI Stop: 12/17/23 08:59 Last Admin: 11/17/23 08:16 Dose: 1 puffs Glucagon (Glucagon For Inj 1 Mg Vial) 1 mg SQ UD PRN; Protocol PRN Reason: Hypoglycemia Protocol Stop: 12/16/23 15:34 Glucose (Glucose 10 Tab/Tube) 4 - 8 tab PO UD PRN; Protocol PRN Reason: Hypoglycemia Treatment Stop: 12/16/23 15:34 Glucose (Glucose 40% Gel 15 Gm Tube) 15 - 30 gm PO UD PRN; Protocol PRN Reason: Hypoglycemia Protocol Stop: 12/16/23 15:34 Guaifenesin (Guaifenesin 600 Mg Tabcr) 1,200 mg PO BID [facility] Stop: 12/16/23 20:59 Last Admin: 11/17/23 08:16 Dose: 1,200 mg Heparin Sodium (Porcine) (Heparin Sod 5,000 Unit/0.5 Ml Vial) 5,000 units SQ Q12 [facility]ICKI Stop: 12/17/23 08:59 Last Admin: 11/17/23 08:16 Dose: 5,000 units Insulin Aspart (Insulin Aspart Per Unit Charge) 0 units SC ACHS [facility] Stop: 12/16/23 20:59 Last Admin: 11/17/23 08:57 Dose: 8 units Insulin Glargine (Lantus Per Unit Charge) 45 units SC DAILY [facility]; Protocol Stop: 12/17/23 08:59 Last Admin: 11/17/23 08:57 Dose: 45 units Levothyroxine Sodium (Levothyroxine Sodium 125 Mcg Tablet) 125 mcg PO DAILYBB [facility] Stop: 12/17/23 06:29 Last Admin: 11/17/23 04:32 Dose: 125 mcg Metoprolol Succinate (Metoprolol Succ 50mg Ext Rel Tab) 50 mg PO BIDM [facility] Stop: 12/17/23 07:59 Last Admin: 11/17/23 08:16 Dose: 50 mg Mirtazapine (Mirtazapine Soltab 15 Mg) 45 mg PO HS [facility] Stop: 12/16/23 20:59 Last Admin: 11/16/23 21:27 Dose: 45 mg Miscellaneous (Carbohydrates For Hypoglycemia ) 15 - 30 gm PO UD PRN PRN Reason: Hypoglycemia Protocol Stop: 12/16/23 15:34 Miscellaneous Information (Pharmacy Glycemic Mgmt Consult) 1 each N/A UD PRN PRN Reason: Consult Stop: 12/16/23 15:34 Olanzapine (Olanzapine 2.5 Mg Tab) 2.5 mg PO QPM [facility] Stop: 12/16/23 20:59 Last Admin: 11/16/23 21:28 Dose: 2.5 mg Ondansetron HCl (Ondansetron 4 Mg Od Tab) 4 mg PO Q8H PRN PRN Reason: nausea and vomiting Stop: 12/16/23 20:56 Pantoprazole Sodium (Pantoprazole 40 Mg Tab) 40 mg PO BIDM [facility] Stop: 12/17/23 07:59 Last Admin: 11/17/23 08:16 Dose: 40 mg Sodium Chloride (Sodium Chlor 7% 4 Ml Neb) 4 ml NEB BIDR [facility] Stop: 12/16/23 21:14 Last Admin: 11/17/23 07:28 Dose: 4 ml Tamsulosin HCl (Tamsulosin Hcl 0.4 Mg Cap) 0.4 mg PO QPM [facility] Stop: 12/16/23 20:59 Last Admin: 11/16/23 21:28 Dose: 0.4 mg Umeclidinium/Vilanterol (Umeclidinium/Vilanterol 62.5/25mcg 7 Puffs/Inhaler) 1 puffs INH DAILY [facility] Stop: 12/17/23 08:59 Last Admin: 11/17/23 08:17 Dose: 1 puffs Venlafaxine HCl (Venlafaxine Hcl Xr 150 Mg Capxr) 150 mg PO HS [facility] Stop: 12/16/23 20:59 Last Admin: 11/16/23 21:28 Dose: 150 mg Vitamin D (Cholecalciferol 5,000 Units 125 Mcg Tab) 5,000 units PO DAILY@1200 [facility] Stop: 12/17/23 11:59
[2023-11-17] MEDS ORDERED: CHOLECALCIFEROL 5,000 UNITS 125 MCG TAB PO SCH (12:00)
--- NOTE | 2023-11-17 15:12 | Discharge Summary ---
Date of Service November 17, 2023 Admission HPI Per Admitting Provider Darrick is an 83-year-old male with a past medical history of type II DM on insulin, paroxysmal A-fib, depression/anxiety, COPD, GERD, and KENTON infection who presents to the emergency department with 1 day of generalized unwellness and fatigue. He was seen by PCP earlier in the morning for cough and congestion with increased shortness of breath atypical of his usual episodes, was seen 10/25 for similar symptoms which improved after a course of azithromycin and prednisone Last night felt nauseus and tired, 'just not right.' Predominant sx was nausea. Feels back to normal 99% at time of ER evaluation. No fevers, chills, or sweats No night sweats, but did not his Tshirt was wet when he woke up for the first time. 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 No dyspnea at rest, but increased dyspnea on exertion since yesterday. 'If I work on the lawn I get short breath normally, but I'd say its getting worse and more in the last week.' He did have a productive cough in the last few weeks, yellow in color last month but has greatly improved since taking prednisone and azithromycin. No diarrhea. No abdominal pain. Took his insulin this morning. Took his long acting this morning 45u lantus along with his breakfast insulin. Uses inhalers for wheezing. Does not think he has a dx of COPD or emphysema. Medical History: Reviewed Medications: Reviewed Surgical History: Reviewed Family history: Reviewed Allergies: Reviewed. Social History: No tobacco or etoh use. Code Status: DNR/DNI. Admission Exam Per Admitting Provider General: A&Ox3. NAD. Cooperative. HEENT: Atraumatic, normocephalic. Vision/hearing grossly intact. Pulm: CTAB A&P. -wheezes, -rales, -rhonchi. Symmetrical chest rise. No increased work of breathing. No respiratory distress. Cardiac: RRR, soft sm. Radial pulses intact and symmetrical. Abdominal: Nontender, nondistended, soft. BS present. Ext: warm, dry. No swelling Principal Diagnosis COPD exacerbation Discharge Exam Constitutional: well-appearing, no acute distress HEENT: NCAT, no conjunctival injection CV: regular rhythm, no murmur appreciated, extremities well-perfused, no LE edema Resp: CTABL, no wheezes/rales/rhonchi appreciated, no increased work of breathing GI: soft, nondistended, nontender, BS normoactive MSK: no gross deformities appreciated Skin: warm, dry, no rash appreciated Neuro: alert, oriented, no focal neurologic deficit appreciated Discharge Data Allergies Allergy/AdvReac Type Severity Reaction Status Date / Time doxycycline AdvReac Intermediate nausea Verified 11/16/23 11:20 levofloxacin AdvReac Mild fidgety Verified 11/16/23 11:20 and anxiety oxycodone AdvReac Mild NAUSEA AND Verified 11/16/23 11:20 VOMITING Consultations 11/16/23 15:57 ED Decision to Admit Stat 11/16/23 20:57 Consult Infectious Diseases Routine Ordered Studies 11/16/23 15:57 CT angio chest PE protocol Stat Chest X-Ray 11/16/23 13:37 SINGLE VIEW CHEST CLINICAL HISTORY: Dyspnea. FINDINGS: 2 AP, portable, upright chest radiographs are compared to study 12/25/2022 and correlated with chest CT dated 06/04/2022. The cardiomediastinal silhouette is top normal for projection noting atherosclerotic calcification of the thoracic aorta. Emphysematous change is again noted. Chronic interstitial thickening and nodularity is similar previous and suggests a chronic infectious/inflammatory pneumonitis. No superimposed airspace consolidation or pleural effusion is identified. No pneumothorax is seen. The skeletal structures are osteopenic. There are healed left-sided rib fractures. IMPRESSION: Mild emphysema and chronic parenchymal changes as above. 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 No superimposed airspace consolidation or pleural effusion is identified. ACT 112: Negative or not required by law. Electronically signed by: Vega Johnston M.D. 11/16/2023 2:24 PM Chest CTA 11/16/23 15:57 CT angio chest PE protocol CT DOSE: 598.42 mGy.cm HISTORY: 83 years-old Male with PE. Acute shortness of breath TECHNIQUE: Multiple CTA images of the chest were obtained after the intravenous administration of 116 ml Optiray. Coronal and sagittal MIPS were obtained from the axial data set and were submitted for review. All measurements were obtained according to NASCET criteria. A dose lowering technique was utilized adhering to the principles of ALARA. COMPARISON: CTA chest 06/04/2022, CT abdomen and pelvis 12/25/2021 FINDINGS: CTA: The heart is normal in size without pericardial effusion. Moderate coronary artery calcifications. Dilation of the aortic root measures up to 4.2 cm. Atherosclerosis of the aorta. No pulmonary emboli identified. 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 CT CHEST: No thyroid nodule or pathologically enlarged lymph nodes identified. Borderline enlarged subcarinal lymph node measures 10 mm. No pneumothorax, pleural effusion or overt pulmonary edema. Multifocal tree-in-bud nodules with areas of mucous plugging and lingular prominent bronchiectasis redemonstrated which has been present on numerous prior exams. The extent of disease has mildly worsened compared to the 2021 study. No acute upper abdominal abnormality. Probable small cyst of the superior pole left kidney. Indeterminate 1.8 cm hypodense left hepatic lobe lesion suggested. This may also be artifactual. Unremarkable soft tissues. No acute fracture. IMPRESSION: 1. No pulmonary emboli identified. 2. 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 3. No pleural effusion. ACT 112: Negative or not required by law. The above report was generated using voice recognition software. It may contain grammatical, syntax or spelling errors. Electronically signed by: Boy Griffith M.D. 11/16/2023 4:53 PM Hospital Course (1) Dyspnea on exertion: (2) Mycobacterium avium complex: (3) COPD (chronic obstructive pulmonary disease): (4) Diabetes mellitus: (5) Elevated troponin I level: Plan #Dyspnea on exertion #COPD exacerbation - No hypoxia - Suspect COPD exacerbation in the setting of patient not using home inhalers. - Recent episode of similar with transiently improved w/ z pack and prednisone 10/25/23. Recurrent sx last 24 hours Denies chest pain, chest pressure. Denies pleuritic pain. Does feel as he is much more short of breath with exertion than normal. No leg injuries or other trauma. No leg swelling - 98% on RA, heart rate regular. D-dimer 4430, patient reports he is not on any blood thinners but does take Plavix CTA with no evidence of PE, with evidence as KENTON. - MAC discussed further as belownono G sputum production, no fever, no chills, no leukocytosis and is satting normally on room air without symptoms at rest. Do not suspect superimposed pneumonia -Restarted home inhalers, though did not have Trelegy in inpatient. Will switch to Anoro Ellipta and Arnuity elliptica for his COPD. Refill sent to pharmacy. -will follow-up with pulmonology to discuss back and COPD treatment. Spoke with son about plan and to remind patient to take inhalers. Mycobacterium avium complex: - Hx KENTON infection - Was on triple antibiotic therapy ethambutol/rifampin/azithro 3x/wk fall 2018 and followed with infectious disease at that time - Completed 18 months of therapy, dced after 18 months 02/2021. Stable 07/21 - Sputum 05/2022 enterobacter, no AFB+. Improved with bactrim. - CT followup 07/2023 with increased bronchiectatic changes and t-i-b opacities suspicious for KENTON, sputum culture positive for MAC. Declined tx at that time due to very poor GI tolerance. - Repeat CT Diffuse tree-in-bud nodules with mucous plugging and mild lingular predominant bronchiectasis redemonstrated, similar to mildly worsened compared to the 06/04/2022 study compatible with a chronic infectious or inflammatory pneumonitis/bronchiolitis such as mycobacterium avium (KENTON). - Pt is a limited historian. Daughter Charlotte called for collateral, msg went to [employer]. Callback number left. - Discussed w/ pulm. Hypertonic saline, chest vest. nebs. Sputum culture pending. No bronch currently indicated. Recommend ID consult for antibiotic recs, especially given poor tolerance to triple tx. -Patient clinically improved without any antibiotics or COPD treatments besides restarting inhalers. She will follow-up with infectious disease as an outpatient. Diabetes mellitus Poorly controlled as outpatient Repeat A1c is 9.9 Hyperglycemic at 417 on admission, patient did take his morning insulin both short and long-acting. Received 6 units of IV insulin for BSG of 417 in the ER, rapidly improved with blood sugar in the 100s Elevated troponin I level - Elevated trop - Denies chest pain/pressure/neck pain/shoulder pain at rest and with exertion at time of admit, prior to admit, or in the prior few weeks. - Endorses chronic exertional dyspnea due to pulmonary disease actually improved in the last week since being on pred/azithro in september -EKG: Sinus tachycardia without ischemic change, QTc 396 -No leukocytosis -BSG 417 -High-sensitivity troponin 47.4, suspect demand ischemia. Plan Chronic stable issues: History of bladder cancer. Frequent cystoscopies due to recurrence, following with urology. No acute change in this at this time Hypothyroidism. TSH normal. Continue Synthroid B12/vitamin deficiency. Continue home vitamins Hyperlipidemia. Statin continued Hypertension. Metoprolol continued. Patient denies any history of CHF Total Time Total Time Spent Total Time Spent (In Minutes): <30 Discharge Plan Discharge Items Patient Disposition: Home - Self-Care Reason For Visit: GOMEZ, MAC Discharge Diagnosis: COPD exacerbation Activity: Resume your previous activity Non-emergency contact: Primary Care Provider Call non-emergency contact if: you have any medication questions, your pain is unusual for you and your temperature is above 101.5 Follow-up/Referrals: Maribell Worrell CRNP [Primary Care Provider] - 11/24/23 10:30 am Amauri Velez MD [Physician] - Milady Menjivar DO [Outside Practitioners] - (Hospital follow-up COPD exacerbation, history of MAC) Diet: Carb Consistent or DM2 Addtl Attending Provider Instructions: You were admitted to the hospital for COPD exacerbation. You were treated with inhalers and got better. A discharge summary will be sent to your primary care physician to ensure continuity of care. Please bring this discharge summary with you to your next office appointment so that your provider can review it at that time. Follow-up appointments: * Make a follow-up appointment with your PCP within the next week. It is very important that you follow up with them shortly after discharge from the hospital. * Make a follow-up appointment with your sap bi architect within the next 2 to 4 weeks. Is very important that you follow-up with your sap bi architect after discharge from the hospital. Please call the office if you do not hear from them. * Make a follow-up appointment with your infectious disease physician in 1 to 2 weeks. * Keep all your follow-up appointments as already scheduled. If you cannot make an appointment, notify your provider. Medications: Your medication list has been reviewed and reconciled upon discharge to ensure accuracy and continuity of care. An updated list of all your medications is included with your hospital discharge paperwork. Please review this list closely, and make note of any changes. * We change her inhaler regimen. You should stop the Trelegy at this time. * We sent a inhaler called Anoro Ellipta to your pharmacy. Take this inhaler 1 puff a day. * We sent an inhaler called Arnuity Ellipta to your pharmacy. Take this inhaler 1 puff a day. * If you have any issues filling these prescriptions, please call [phone] and ask to leave a message for Dr. Lowe. * Take your medications as instructed; do not skip a dose of your medicines. Make sure all of your doctors know every medicine you are taking (including lpkq-bep-pkiwssm medicines, vitamins, and supplements). Call your primary care provider before taking any new medicines (including over- the-counter medicines, vitamins, and supplements), because some of these may interact with your current medications, or may make your symptoms worse. Tell your primary care provider if you cannot afford your medications. CONTACT YOUR PRIMARY CARE PROVIDER if you experience any of the following: * Worsening of symptoms * Fever, chills, or fatigue * Difficulty following your treatment plan, or difficulty taking medications CALL 911 OR GO TO THE EMERGENCY DEPARTMENT if you experience any of the following: * Sudden, severe abdominal pain or nausea/vomiting * Severe chest pain, or chest pain that radiates (moves) to your jaw or arm * Sudden, severe shortness of breath or difficulty breathing Thank you for allowing us to participate in your care. Pending Studies at Discharge: Yes Studies:: Sputum culture results Stand-Alone Forms: My [facility] [employer], Smoking Cessation Medications and DC Order Prescriptions: New Anoro Ellipta 62.5-25 mcg/actuation Blister With Device 1 inh inhalation DAILY Qty: 60 0RF Arnuity Ellipta 100 mcg/actuation Blister With Device 1 inh inhalation DAILY Qty: 30 0RF Continued mirtazapine 45 mg tablet 45 mg PO HS Rx Instructions: ordered by Dr. Mckeon venlafaxine 150 mg capsule,extended release 24hr 150 mg PO HS Rx Instructions: Ordered by Dr. Mckeon clopidogrel [Plavix] 75 mg tablet 75 mg PO HS Qty: 30 11RF albuterol sulfate 90 mcg/actuation HFA aerosol inhaler 2 puff INHALATION Q4H PRN (Reason: Shortness Of Breath) Qty: 18 11RF olanzapine 2.5 mg tablet 2.5 mg PO QPM Qty: 20 0RF Rx Instructions: temp increase dose till see Dr Mckeon ferrous sulfate 325 mg (65 mg iron) tablet 325 mg PO DAILY@1200 Qty: 30 11RF Rx Instructions: 325 mg PO AT NOON levothyroxine [Tirosint] 125 mcg capsule 125 mcg PO QAM Qty: 30 11RF Rx Instructions: brand necessary cholecalciferol (vitamin D3) 125 mcg (5,000 unit) capsule 125 mcg PO DAILY@1200 Qty: 30 11RF Rx Instructions: 125 mcg PO AT NOON insulin glargine [Lantus Solostar U-100 Insulin] 100 unit/mL (3 mL) insulin pen See Rx Instructions SQ QAM Qty: 60 2RF Rx Instructions: 45 units subcut QAM; slowly titrate up to 60 units QD; TDD 60 units multivitamin [Daily Multi-Vitamin] Tablet 1 tab PO QAM Qty: 30 11RF tamsulosin [Flomax] 0.4 mg capsule 0.4 mg PO QPM Qty: 90 3RF atorvastatin 40 mg tablet 40 mg PO HS Qty: 30 11RF (DME) OneTouch Verio test strips Strip See Rx Instructions .ROUTE .MEDSUPPLY Qty: 500 3RF Rx Instructions: test BS 5 times a day (DME) pen needle, diabetic [BD Ultra-Fine Miranda Pen Needle] 32 gauge x 5/32" needle See Dose Instructions .ROUTE .MEDSUPPLY Qty: 500 3RF Rx Instructions: use up to 5 a day to administer insulin albuterol sulfate 2.5 mg /3 mL (0.083 %) solution for nebulization See Rx Instructions .ROUTE .COMPLEX Qty: 180 6RF Dose Instruction: INHALE 1 VIAL VIA NEBULIZER FOUR TIMES A DAY NEEDED FOR SHORTNESS OF BREATH OR WHEEZING Rx Instructions: INHALE 1 VIAL VIA NEBULIZER FOUR TIMES A DAY NEEDED FOR SHORTNESS OF BREATH OR WHEEZING codeine-guaifenesin 10-100 mg/5 mL liquid 5 ml PO Q6H PRN (Reason: For Cough) Qty: 473 0RF Rx Instructions: 5 ML every 6HR as needed for coughing metoprolol succinate 50 mg tablet extended release 24 hr 50 mg PO BIDM Qty: 60 11RF Rx Instructions: 50 mg PO TWICE A DAY IN A.M. AND SUPPER pantoprazole 20 mg tablet,delayed release (DR/EC) 20 mg PO BIDM Qty: 60 11RF Rx Instructions: 20 mg PO TWICE DAILY ONCE IN A.M. AND ONCE AT SUPPER; (DME) nebulizer and tubing See Rx Instructions .Route .MEDSUPPLY Qty: 1 0RF Rx Instructions: use 2-3 times a day. PLEASE INSTRUCT ON USE. Use- 99 yrs (DME) nebulizer accessories Kit See Rx Instructions .Route Qty: 1 0RF Rx Instructions: Use 2-3 times a day Dx:J44.9 Use=99 years insulin aspart U-100 [Novolog FlexPen U-100 Insulin] 100 unit/mL (3 mL) insulin pen 20 unit SQ TID Qty: 30 5RF Rx Instructions: Takes usually 8-12 units per meal with sliding scale. Debrox 6.5 % drops 5 drp otic (ear) BID 4 Days Qty: 15 0RF ondansetron 4 mg tablet,disintegrating 4 mg PO Q8H PRN (Reason: nausea and vomiting) Qty: 30 3RF Rx Instructions: pt d/c phenergan lactobacillus combination no.8 3 billion cell capsule 3,000 mmu cells PO HS Rx Instructions: administer with a meal Discontinued Trelegy Ellipta 100-62.5-25 mcg blister with device 1 inh inhalation DAILY Qty: 28 11RF Discharge Orders: Discharge Order (Routine); Ordered 11/17/23 Ordered By: Vega Lowe Admission Data Admit Date/Time: 11/16/23 18:00 Attending Provider: Tristan Guillen Admit Provider: Wallace Richter Primary Care Provider: Maribell Worrell Other Providers: Wallace Richter; Davina Macedo; Amisha Miranda; Leonard Fuller; Felipa Lao; Jeanette Pickett; Celina Acosta; Nessa Hopkins; Valery Juárez Other Interventions: Discharge Summary Assessment (RN) Last Done: 11/17/23 15:35 Supervising Physician Co-Signing Physician Notes I personally examined the patient and verified all castro points of history and exam, discussed case, and agree with decision making with Dr Lowe Feeling okay and would very much like to go home. Dr. Lowe was able to discuss with family, and it sounds like patient is more or less at his baseline. Discussed with infectious diseaseinput greatly appreciated. Will have close follow-up with PCP, pulmonary, local infectious disease, but no clear-cut indications for repeat MAC treatment overtly indicated. Vitals noted, in general he is awake and alert pleasant no distress. HEENT normocephalic atraumatic mucous membranes moist. Breathing unlabored no accessory muscle use good effort. Skin shows no rashes no pallor or icterus. Dyspnea on exertionseems to have been transient and resolved without much specific intervention. Safe/stable for home. Reiterated normal use of inhalers. Close pulmonary and outpatient infectious disease follow-up. Otherwise as above. Resident Activity Tracking Resident Involvement: Resident Care Provided Care Provided: Adult Hospital Medicine
--- NOTE | 2023-11-17 17:45 | Billing Data ---
Date of Service November 17, 2023 Coding Level of Care Code 70230 IN/OBS DISCH 30 MIN/LESS
--- NOTE | 2023-11-18 22:03 | Electrocardiogram Report ---
Test Reason : Blood Pressure : / mmHG Vent. Rate : 105 BPM Atrial Rate : 105 BPM P-R Int : 168 ms QRS Dur : 066 ms QT Int : 300 ms P-R-T Axes : 069 -20 030 degrees QTc Int : 396 ms Sinus tachycardia Otherwise normal ECG When compared with ECG of 14-MAR-2022 08:03, No significant change was found Confirmed by Pierce Joe ([id number]) on 11/18/2023 10:03:45 PM Referred By: Confirmed By:Pierce Joe
== END 2023-11-17 16:13 | disposition home or self-care (01) ==
LOC: ED 13:24 → EDINP 13:24 → SUATTDRO 18:00 → 2N 22:46
DX: R73.9 Hyperglycemia, unspecified; I48.0 Paroxysmal atrial fibrillation; Z88.1 Allergy status to other antibiotic agents; Z79.51 Long term (current) use of inhaled steroids; R11.0 Nausea; Z79.899 Other long term (current) drug therapy; R79.89 Other specified abnormal findings of blood chemistry; E11.9 Type 2 diabetes mellitus without complications; Z87.891 Personal history of nicotine dependence; K21.9 Gastro-esophageal reflux disease without esophagitis; Z79.02 Long term (current) use of antithrombotics/antiplatelets; Z88.5 Allergy status to narcotic agent; J44.1 Chronic obstructive pulmonary disease with (acute) exacerbation; Z79.4 Long term (current) use of insulin; R06.02 Shortness of breath; A31.0 Pulmonary mycobacterial infection

== ENCOUNTER 2024-07-15 14:05 | Inpatient (IN) ==
--- NOTE | 2024-07-15 14:52 | Emergency Department Note ---
History of Present Illness General Chief complaint: Penis Pain Stated complaint: BLEEDING FROM PENIS Time Seen by Provider: 07/15/24 14:45 History of Present Illness This is an 84-year-old male that presents to the emergency department via private vehicle with complaints of "blood in urine/bleeding from penis". The patient notes that he underwent office procedure by Dr. Malone on 07/11/2024. Per review of the EMR this was cystoscopy with fulguration. 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 There was also 4-5 tiny satellite tumors fulgurated as well. Patient notes that the following day he began with hematuria but also bleeding from the penis even when he was not urinating. He also notes urinary incontinence which began this past . This is new for him he notes. The patient denies any fevers or chills. No abdominal pain. No penile pain. Home Medications Medication Instructions Recorded Confirmed Type mirtazapine 45 mg tablet 45 mg PO HS 03/24/21 06/27/24 History venlafaxine 150 mg 150 mg PO HS 03/24/21 06/27/24 History capsule,extended release 24 hr nebulizer accessories #1 ea 12/08/21 06/27/24 Rx nebulizer and tubing #1 ea 12/08/21 06/27/24 Rx albuterol sulfate 90 mcg/actuation 2 puff inhalation Q4H PRN 01/17/23 06/27/24 Rx aerosol inhaler Shortness Of Breath #18 grams olanzapine 2.5 mg tablet 2.5 mg PO QPM #20 tabs 01/18/23 06/27/24 Rx lactobacillus combination no.8 3 3,000 mmu cells PO HS 01/28/23 06/27/24 History billion cell capsule pen needle, diabetic 32 gauge x #500 ea 07/11/23 06/27/24 Rx 5/32" (BD Ultra-Fine Miranda Pen Needle) albuterol sulfate 2.5 mg/3 mL See Rx Instructions .Route 09/06/23 06/27/24 Rx (0.083 %) solution for nebulization .COMPLEX #180 mL ondansetron 4 mg disintegrating 4 mg PO Q8H PRN nausea and 09/27/23 06/27/24 Rx tablet vomiting #30 tabs Novolog FlexPen U-100 Insulin 100 20 unit (0.2 mL) subcut TID #30 mL 10/06/23 06/27/24 Rx unit/mL (3 mL) subcutaneous (insulin aspart U-100) metoprolol succinate 50 mg 50 mg PO BIDM #60 tabs 10/19/23 06/27/24 Rx tablet,extended release 24 hr pantoprazole 20 mg tablet,delayed 20 mg PO BIDM #60 tabs 11/02/23 06/27/24 Rx release carbamide peroxide 6.5 % ear drops 5 drp otic (ear) BID 4 days #15 mL 11/16/23 06/27/24 Rx (Debrox) fluticasone fur. 100 mcg-umeclid 1 inh inhalation DAILY #28 ea 11/24/23 06/27/24 Rx 62.5 mcg-vilant 25 mcg inhalat.powder (Trelegy Ellipta) clopidogrel 75 mg tablet (Plavix) 75 mg PO HS #30 tabs 12/27/23 06/27/24 Rx Tirosint 125 mcg capsule 125 mcg PO QAM #30 caps 01/24/24 06/27/24 Rx (levothyroxine) ferrous sulfate 325 mg (65 mg 325 mg PO DAILY@1200 #30 tabs 01/24/24 06/27/24 Rx iron) tablet multivitamin (Daily Multi-Vitamin 1 tab PO QAM #30 tabs 03/07/24 06/27/24 Rx tablet) cholecalciferol (vitamin D3) 125 125 mcg PO DAILY@1200 #30 caps 03/20/24 06/27/24 Rx mcg (5,000 unit) capsule tamsulosin 0.4 mg capsule (Flomax) 0.4 mg PO QPM #90 caps 03/20/24 06/27/24 Rx insulin glargine 100 unit/mL (3 See Rx Instructions subcut QAM #60 04/17/24 06/27/24 Rx mL) subcutaneous pen (Lantus mL Solostar U-100 Insulin) blood sugar diagnostic (OneTouch #500 ea 05/09/24 06/27/24 Rx Verio test strips) atorvastatin 40 mg tablet 40 mg PO HS #30 tabs 05/15/24 06/27/24 Rx molnupiravir 200 mg capsule (EUA) 800 mg (4 x 200 mg) PO Q12H 5 days 06/27/24 06/27/24 Rx (Lagevrio) #40 caps codeine 10 mg-guaifenesin 100 mg/5 5 ml PO Q6H PRN For Cough #473 mL 07/03/24 Rx mL oral liquid Allergies Allergy/AdvReac Type Severity Reaction Status Date / Time doxycycline AdvReac Intermediate nausea Verified 06/27/24 11:14 levofloxacin AdvReac Mild fidgety Verified 06/27/24 11:14 and anxiety oxycodone AdvReac Mild NAUSEA AND Verified 06/27/24 11:14 VOMITING Past Med/Surg History Problem List (Updated 07/15/24 @ 16:58 by Aristides Felix PA-C) Uncontrolled type 2 diabetes mellitus with hyperglycemia, with long-term current use of insulin Elevated troponin I level (Acute) Hypertension Bladder cancer Hematuria (Acute) Spastic bladder Diastolic dysfunction COPD (chronic obstructive pulmonary disease) (Acute) Depression with anxiety (Chronic) Laryngopharyngeal reflux Low ferritin Vitamin B12 deficiency (dietary) anemia Diabetic peripheral neuropathy (Acute) Very mild Dyslipidemia (Chronic) GERD without esophagitis (Chronic) Hypothyroidism (Chronic) Insomnia (Acute) Iron deficiency anemia (Acute) Pulmonary nodules (Acute) [place] (mycobacterium avium-intracellulare) infection Has been evaluated by ID (started on triple ABX therapy fall 2018), following with pulmonology. Previously had a severe chronic cough but now feels this has mostly resolved on medications. 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 Medical History SOB (shortness of breath) Dyspnea Troponin level elevated On anticoagulant therapy plavix daily Gastroparesis Hypoglycemia Intractable abdominal pain Lactic acidosis Gross hematuria hx of CVA (cerebral vascular accident) 03/2017. Continues on Plavix. Afib Single episode 09/2017 in setting of acute illness. No known reoccurance. Poor historian Pt reports some issues with recall/memory. Nausea Chronic, intermittent. History of stroke Versus TIA, history is unclear, but pt continues on Clopidogrel. Irritable bowel syndrome Depression Cancer H/O BLADDER CA/TURBT- NO CHEMO OR RADIATION Chronic obstructive pulmonary disease Asthma inhaler daily/prn, nebulizer prn Surgical History History of cystoscopy 12/03/20 @ [facility] History of esophagogastroduodenoscopy (EGD) History of cataract surgery left and right History of colonoscopy (~2011) Diverticulosis History of tonsillectomy History of bladder surgery TURBT= 11/01/17= [facility] 2, MAC 3.0, ETT 8.0 AT [facility] H/O lumbar discectomy Family History Mother Family history of diabetes mellitus Myocardial infarction Father Myocardial infarction Other No family history of bleeding disorder Denies family history of Ovarian cancer Prostate cancer Breast cancer Colorectal cancer Social History Smoking Status: Former smoker Tobacco Type: Cigarettes Second Hand Exposure: No; Do You Dip or Chew Tobacco: No; Tobacco Cessation Education Requested by Patient: No Hx Alcohol Use: No Hx Substance Use: No Preferred Language: Azeri Communication Ability: Effective Visual Impairment: No Limitations Hearing Ability: Normal Billing Manager Required: No Beliefs That Will Affect Care: None marital status: / Current Living Situation: Alone current occupational status: retired How many Children do You have: 2 Other Information That Helps Us Care for You: No Feels Safe at Home: Yes Safety Concerns: Feels Safe At This Time Childhood Exposure to Second-Hand Smoke: No Diet: diabetic and regular caffeine: Yes during the past year weight has: remained stable Dental Care, Regularly: Yes Physical Activity Frequency: Does not Exercise Seatbelt Use: always Sunscreen Use: No Do you think of yourself as: straight/heterosexual Gender Identity: Male Assistive Devices: None Review of Systems A total of 10 systems reviewed and were otherwise negative Physical Exam Vital Signs Vital Signs - 24 hr 07/15/24 14:38 07/15/24 17:43 Temperature 36.5 C Temperature Source Temporal Artery Scan Pulse Rate 101 H Pulse Rate [Left Finger] 95 H Respiratory Rate 20 20 Respiratory Effort / Characteristics Non-Labored Spontaneous Non-Labored Respiratory Depth Normal Normal Blood Pressure 113/60 Blood Pressure [Left Arm] 170/91 H Blood Pressure Mean 77 Blood Pressure Mean [Left Arm] 117 Pulse Oximetry 93 98 Oxygen Delivery Method Room Air Room Air Sepsis Recent Fever Within 48 Hours No Sepsis New/Unexplained Change in Mental Status N/A Sepsis Action Taken by Nursing No Action Required VITAL SIGNS - Vital signs and nursing notes were reviewed. Stable and afebrile. GENERAL - 84-year-old male appearing his stated age who is in no acute distress. Communicates well with provider and answers questions appropriately. SKIN - Without rashes. ABDOMEN - Abdominal contour normal without pulsations or visible masses. BS normoactive all four quadrants. No tenderness, palpable masses, hepatosplenomegaly, or ascites noted. EXTREMITIES - +5/5 strength noted in UE/LE bilaterally. PSYCH -alert, oriented and pleasant on examination. - radiologic technologist chief Leti present for examination. Verbal consent was obtained from the patient. There is a circumcised, normal penis and scrotum. Tiny amount of blood at the urethral meatus, otherwise no blood seen. No erythema or edema. No tenderness. No lesions. Course Administered Medications Acetaminophen (Acetaminophen 325 Mg Tab) 650 mg PO Q4H PRN PRN Reason: pain/fever Stop: 08/14/24 20:25 Last Admin: 07/16/24 05:34 Dose: 650 mg Documented By: Admin: 07/15/24 21:24 Dose: 650 mg Documented By: CAMILLA Atorvastatin Calcium (Atorvastatin 40 Mg Tab) 40 mg PO HS NICKI Stop: 08/14/24 20:59 Last Admin: 07/15/24 21:26 Dose: 40 mg Documented By: CAMILLA Lactated Ringer's (Lr) 1,000 mls @ 80 mls/hr IV .[id number] NICKI Stop: 07/16/24 18:59 Last Admin: 07/16/24 05:35 Dose: 80 mls/hr Documented By: Infusion: 07/16/24 05:35 Dose: Infused Documented By: Admin: 07/15/24 18:26 Dose: 80 mls/hr Documented By: ML Insulin Aspart (Insulin Aspart Per Unit Charge) 0 units SC ACHS NICKI Stop: 08/14/24 21:44 Last Admin: 07/15/24 21:55 Dose: 1,000 units Documented By: CAMILLA Co-signed By: EDIL Levothyroxine Sodium (Levothyroxine Sodium 125 Mcg Tablet) 125 mcg PO DAILYBB NICKI Stop: 08/15/24 06:29 Last Admin: 07/16/24 05:30 Dose: 125 mcg Documented By: CAMILLA Metoprolol Succinate (Metoprolol Succ 50mg Ext Rel Tab) 50 mg PO BIDM NICKI Stop: 08/14/24 21:44 Last Admin: 07/15/24 22:08 Dose: 50 mg Documented By: CAMILLA Mirtazapine (Mirtazapine Soltab 15 Mg) 45 mg PO HS NICKI Stop: 08/14/24 20:59 Last Admin: 07/15/24 21:25 Dose: 45 mg Documented By: CAMILLA Olanzapine (Olanzapine 2.5 Mg Tab) 2.5 mg PO QPM NICKI Stop: 08/14/24 20:59 Last Admin: 07/15/24 21:25 Dose: 2.5 mg Documented By: CAMILLA Tamsulosin HCl (Tamsulosin Hcl 0.4 Mg Cap) 0.4 mg PO QPM NICKI Stop: 08/14/24 20:59 Last Admin: 07/15/24 21:26 Dose: 0.4 mg Documented By: CAMILLA Venlafaxine HCl (Venlafaxine Hcl Xr 150 Mg Capxr) 150 mg PO HS NICKI Stop: 08/14/24 20:59 Last Admin: 07/15/24 21:29 Dose: 150 mg Documented By: CAMILLA Discontinued Medications Insulin Human Regular 5 units/ (Syringe) 5 mls @ 60 mls/min IV ONE STA Stop: 07/15/24 21:38 Last Admin: 07/15/24 22:09 Dose: 60 mls/min Documented By: CAMILLA Co-signed By: GENNARO Lactated Ringer's (Lr) 1,000 mls @ 999 mls/hr IV .Q1H1M ONE Stop: 07/15/24 22:31 Last Admin: 07/15/24 22:50 Dose: Not Given Documented By: CAMILLA Lactated Ringer's (Lr) 500 mls @ 999 mls/hr IV .Q31M ONE Stop: 07/15/24 22:01 Last Infusion: 07/15/24 22:49 Dose: Infused Documented By: Admin: 07/15/24 22:09 Dose: 999 mls/hr Documented By: CAMILLA Morphine Sulfate (Morphine Sulfate 2 Mg/Ml Carp) 1 mg IV NOW ONE Stop: 07/15/24 22:13 Last Admin: 07/15/24 22:39 Dose: 1 mg Documented By: CAMILLA Medical Decision Making Laboratory Data 07/15/24 15:11 07/15/24 15:11 Lab Results 07/15/24 07/15/24 Range/Units 15:11 15:15 WBC 11.76 H (4.8-10.8) K/ul RBC 4.13 L (4.70-6.10) M/uL Hgb 12.3 L (14.0-18.0) g/dl Hct 36.5 L (42.0-52.0) % MCV 88.4 (80.0-100.0) fL MCH 29.8 (25.0-34.0) pg MCHC 33.7 (32.0-36.0) g/dL RDW Std Deviation 41.2 (36.4-46.3) fL RDW Coeff of Yulissa 12.7 (11.5-14.5) % Plt Count 331 (130-400) K/uL MPV 9.2 L (9.4-12.4) fL Immature Gran % (Auto) 0.3 % Neut % (Auto) 82.9 % Lymph % (Auto) 7.9 % [place] % (Auto) 6.8 % Eos % (Auto) 1.6 % Baso % (Auto) 0.5 % Neut # (Auto) 9.74 H (1.40-6.50) K/uL Lymph # (Auto) 0.93 L (1.20-3.40) K/uL [place] # (Auto) 0.80 H (0.11-0.59) K/uL Eos # (Auto) 0.19 (0.00-0.50) K/uL Baso # (Auto) 0.06 (0.00-0.20) K/uL Immature Gran # (Auto) 0.04 (0.01-0.20) K/uL PT 11.0 (9.0-12.0) Seconds INR 1.0 (0.9-1.1) APTT 29 (21-31) Seconds PTT Ratio 1.1 Sodium 135 L (136-145) mmol/L Potassium 4.9 (3.5-5.1) mmol/L Chloride 99 (98-107) mmol/L Carbon Dioxide 27 (21-32) mmol/L Anion Gap 9 (3-11) BUN 29 H (6-23) mg/dl Creatinine 1.40 (0.6-1.4) mg/dl Est Cr Clr Drug Dosing 36.1 ml/min Est GFR ( Amer) 53.5 ml/min Est GFR (Non-Af Amer) 46.1 ml/min BUN/Creatinine Ratio 20.7 H (10-20) Glucose 372 H* (70-99(Fasting)) mg/dl Calcium 9.6 (8.6-10.3) mg/dl Total Bilirubin 0.4 (0.2-1.0) mg/dl AST 18 (13-39) U/L ALT 16 (7-52) U/L Alkaline Phosphatase 111 H (34-104) U/L Total Protein 7.3 (6.0-8.3) gm/dl Albumin 4.2 (3.4-5.0) gm/dl Globulin 3.1 (2.5-4.0) gm/dl Albumin/Globulin Ratio 1.4 (0.9-2) Urine Color Red Urine Appearance Turbid A (Clear) Urine pH 7.0 (4.5-7.5) Ur Specific [place] 1.025 (1.000-1.030) Urine Protein 3+ H (Negative) Urine Glucose (UA) 3+ H (Negative) Urine Ketones Negative (Negative) Urine Blood 3+ H (Negative) Urine Nitrite Negative (Negative) Urine Bilirubin Negative (Negative) Urine Urobilinogen Negative (Negative) Ur Leukocyte Esterase Negative (Negative) Urine RBC >20 H (0-2) /hpf Urine WBC 0-5 (0-5) /hpf Ur Epithelial Cells 0-2 (0-2) /hpf Urine Bacteria None Seen (None Seen) MDM Narrative Patient was seen and evaluated as above in room D03a. Review was performed of triage nursing notes and vital signs. I did review pertinent previous visits and patient history. After obtaining a thorough history and physical examination the above work up was performed. Patient presents to us today for assessment of bleeding from the penis. Hematuria also noted. This is status post bladder cystoscopy with fulguration on 07/11/2024. Patient also notes urinary incontinence. Patient well-appearing and nontoxic. No active bleeding from the penis at this time. No wounds. Vital signs stable. Options of care were discussed with the patient. IV access was established. Labs were drawn. Urinalysis was obtained. Bladder scan was ordered. This was performed post void and there was no retained urine noted.Labs reveal mild leukocytosis 11.76. Minor anemia similar to previous with hemoglobin of 12.3. Mild hyponatremia 135. Mild elevation of BUN at 29. Glucose 372. Alk phos 111. Urinalysis reveals blood, no evidence of infection. I discussed the presentation and findings with the on-call urologist, Dr. Quijano at 4:23 PM on 07/15/2024. We agreed at this time by allowing the patient to hold the Plavix for a few days and that should resolve his symptoms. The patient again is clinically well-appearing and nontoxic. He has a benign abdominal examination. I presented these recommendations to the patient. The patient expressed great concern about going home, notes he lives alone. He also is not sure which pill in his pillbox is Plavix as he notes that these are pre done up kits for him by the pharmacy. It appears the patient will be due to take a Plavix this evening. I do believe the patient is safe and stable to be discharged to follow-up in the outpatient setting, however noting the patient's concern did discuss this with the hospitalist service. I will note that I do not suspect this to be a complication of the procedure, rather is likely expected bleeding but amplified secondary to the patient's Plavix use. GCS: 15 In the evaluation and treatment of this patient the following differential diagnoses were entertained: UTI, antiplatelet therapy causing bleeding, infection, among others. Impression & Plan Hematuria Discharge Plan Visit Data Chief Complaint: Penis Pain Stated Complaint: BLEEDING FROM PENIS ED Provider: Kwesi Hines ED Midlevel Provider: Aristides Felix Discharge Problem: Hematuria Patient Disposition: Admitted As Inpatient Condition: Good Discharge Instructions Interventions: ED Discharge Assessment Last Done: 07/15/24 19:51
[2024-07-15 15:41] LABS: Basophils # (auto) 0.06 K/uL (0.00-0.20); Basophils % (auto) 0.5 %; Eosinophils # (auto) 0.19 K/uL (0.00-0.50); Eosinophils % (auto) 1.6 %; Hematocrit (blood only) 36.5 % (42.0-52.0); Hemoglobin 12.3 g/dl (14.0-18.0); Immature Granulocytes # (auto) 0.04 K/uL (0.01-0.20); Immature Granulocytes % (auto) 0.3 %; Lymphocytes # (auto) 0.93 K/uL (1.20-3.40); Lymphocytes % (auto) 7.9 %; Mean Corpuscular Hemoglobin 29.8 pg (25.0-34.0); Mean Corpuscular Hgb Conc 33.7 g/dL (32.0-36.0); Mean Corpuscular Volume 88.4 fL (80.0-100.0); Mean Platelet Volume 9.2 fL (9.4-12.4); Monocytes % (auto) 6.8 %; Neutrophils # (auto) 9.74 K/uL (1.40-6.50); Neutrophils % (auto) 82.9 %; Platelet Count 331 K/uL (130-400); RDW Coefficient of Variation 12.7 % (11.5-14.5); RDW Standard Deviation 41.2 fL (36.4-46.3); Red Blood Count 4.13 M/uL (4.70-6.10); White Blood Count 11.76 K/ul (4.8-10.8)
[2024-07-15 15:44] LABS: Appearance Urine Turbid (Clear); Bilirubin Urine Negative (Negative); Blood Urine 3+ (Negative); Color Urine Red; Glucose Urine UA 3+ (Negative); Ketones Urine Negative (Negative); Leukocyte Esterase Urine Negative (Negative); Nitrite Urine Negative (Negative); Protein Urine 3+ (Negative); Specific Gravity Urine 1.025 (1.000-1.030); Urobilinogen Urine Negative (Negative)
[2024-07-15 15:47] LABS: Bacteria Urine None Seen (None Seen); Epithelial Cell Urine 0-2 /hpf (0-2); RBC Urine >20 /hpf (0-2); WBC Urine 0-5 /hpf (0-5)
[2024-07-15 15:59] LABS: Albumin Globulin Ratio 1.4 (0.9-2); Albumin Level 4.2 gm/dl (3.4-5.0); BUN Creatinine Ratio 20.7 (10-20); Bilirubin,Total 0.4 mg/dl (0.2-1.0); Calcium 9.6 mg/dl (8.6-10.3); Creatinine Clr Calc Pharmacy 36.1 ml/min; Est GFR (African American) 53.5 ml/min; Est GFR (Non-African American) 46.1 ml/min; Globulin 3.1 gm/dl (2.5-4.0); Potassium 4.9 mmol/L (3.5-5.1); Total Protein 7.3 gm/dl (6.0-8.3)
--- NOTE | 2024-07-15 16:02 | Emergency Department Note ---
ED Visit Note I was consulted in regards to the patient's presentation and plan of care by the Advanced Practice Provider. I engaged in a detailed/meaningful discussion with the Advanced Practice Provider in regards to this patient's workup and plan of care. I performed a substantiative portion of the medical decision making following discussion with the Advanced Practice Provider. Please see the Advanced Practice Provider's separate documentation for full details of the patient's visit. I agree with the assessment and plan of Aristides Felix PA-C. Kwesi Hines, Emergency Medicine .
[2024-07-15 16:04] LABS: Partial Thromboplastin Ratio 1.1; Partial Thromboplastin Time 29 Seconds (21-31)
--- NOTE | 2024-07-15 17:18 | History & Physical Report ---
Date of Service July 15, 2024 Assessment & Plan (1) Hematuria: Plan: New onset hematuria that began the evening of 07/14 He also notes urinary incontinence that began on 07/12 Recent cystoscopy with fulguration for bladder cancer with Dr. Malone on 07/11 Patient notes he has been in significant distress at home with 10/10 pain whenever he urinates, and does not feel comfortable returning home until the issue resolves Hgb 12.3 on arrival Hold Plavix the evening of 07/15 Fluid resuscitation with LR at 80mL/hr x 2 L Continue tamsulosin HS Acetaminophen as needed for pain ED reached out to urology, who are okay with seeing him in the morning Urology consult appreciated A.m. CBC, BMP, mag (2) Uncontrolled type 2 diabetes mellitus with hyperglycemia, with long-term current use of insulin: Plan: Last A1c at 9.9% on 11/17/2023 Patient reports he takes 40u Lantus QAM; most recent PCP note on 06/27 was 45u QAM, but patient reports they have been scaling back on this Will plan on Lantus 20u BID while inpatient SSI; with target BSG range 110-140mg/dL, CF 50, carb ratio 15 T2DM diet BSG ACHS Adjust regimen as needed AM A1c (3) Bladder cancer: Plan Disposition: Obs - admit to MedSurg DNR/DNI T2DM diet VTE PPx: Hold Plavix and chemical DVT PPx in the setting of gross hematuria; SCDs History of Present Illness Chief Complaint: Penis pain, hematuria Primary Care Provider: RONNIE Santana Darrick is a 84-year-old gentleman with PMH of T2DM, iron deficiency anemia, GERD, hypothyroidism, dyslipidemia, depression, anxiety, COPD, bladder cancer, and HTN. He presented on 07/15 for hematuria. Patient reports that he had a cystoscopy for bladder cancer with Dr. Quijano on Wednesday 07/11, and felt fine following the procedure. Then on he started to develop hematuria with urination, as well as decreased urinary amount. He believes there may have been blood clots in his urine. He also endorses episodes of urinary incontinence where blood will leak from his penis. He denies any groin pain at rest, but does have significant dysuria. He rates the dysuria 10/10 whenever he needs to urinate. He has not been taking any additional pain medications at home for this. No pain at present. No other drainage from his penis. Patient took all of his regular morning medications today. He was previously stopped on Plavix for 5 days prior to his urological procedure, but then started again on and has been taking it recently; last dose was the evening of 07/14. Patient is unsure why he takes Plavix; he denies a history of CVA/TIA, and denies history of heart stents. He believes it might be for primary prevention. Patient is a former smoker but quit 40 years ago. No recent alcohol use. Patient is mildly tachycardic at 101 bpm at time of admission; vitals otherwise stable. ED course: ROS: Patient endorses lightheadedness, GOMEZ (chronic), hematuria, decreased urinary amount, and loss of urinary continence (which is new for him). Patient denies fever, chills, night sweats, dizziness, headaches, chest pain, chest palpitations, SOB at rest, pleuritic CP, abdominal pain, N/B/D, lower back pain, saddle anesthesia, or change in bowel habits. Patient is unsure what medications he takes on a daily basis, and reports that he uses "pill packs" that are sent in from the pharmacy. He is unsure of the names of the medications. The only medication he knows the dosage for is his long-acting insulin (believes he takes 40u of the Lantus in the mornings). Reached out to med rec, who were unable to verify medications as the patient's pharmacy was closed. Will base current medications off of his last PCP appointment (06/27/24). Please have med rec verify medications once able to reach patient's pharmacy. Allergies Allergy/AdvReac Type Severity Reaction Status Date / Time doxycycline AdvReac Intermediate nausea Verified 06/27/24 11:14 levofloxacin AdvReac Mild fidgety Verified 06/27/24 11:14 and anxiety oxycodone AdvReac Mild NAUSEA AND Verified 06/27/24 11:14 VOMITING Home Medications Medication Instructions Recorded Confirmed Type mirtazapine 45 mg tablet 45 mg PO HS 03/24/21 06/27/24 History venlafaxine 150 mg 150 mg PO HS 03/24/21 06/27/24 History capsule,extended release 24 hr nebulizer accessories #1 ea 12/08/21 06/27/24 Rx nebulizer and tubing #1 ea 12/08/21 06/27/24 Rx albuterol sulfate 90 mcg/actuation 2 puff inhalation Q4H PRN 01/17/23 06/27/24 Rx aerosol inhaler Shortness Of Breath #18 grams olanzapine 2.5 mg tablet 2.5 mg PO QPM #20 tabs 01/18/23 06/27/24 Rx lactobacillus combination no.8 3 3,000 mmu cells PO HS 01/28/23 06/27/24 History billion cell capsule pen needle, diabetic 32 gauge x #500 ea 07/11/23 06/27/24 Rx 5/32" (BD Ultra-Fine Miranda Pen Needle) albuterol sulfate 2.5 mg/3 mL See Rx Instructions .Route 09/06/23 06/27/24 Rx (0.083 %) solution for nebulization .COMPLEX #180 mL ondansetron 4 mg disintegrating 4 mg PO Q8H PRN nausea and 09/27/23 06/27/24 Rx tablet vomiting #30 tabs Novolog FlexPen U-100 Insulin 100 20 unit (0.2 mL) subcut TID #30 mL 10/06/23 06/27/24 Rx unit/mL (3 mL) subcutaneous (insulin aspart U-100) metoprolol succinate 50 mg 50 mg PO BIDM #60 tabs 10/19/23 06/27/24 Rx tablet,extended release 24 hr pantoprazole 20 mg tablet,delayed 20 mg PO BIDM #60 tabs 11/02/23 06/27/24 Rx release carbamide peroxide 6.5 % ear drops 5 drp otic (ear) BID 4 days #15 mL 11/16/23 06/27/24 Rx (Debrox) fluticasone fur. 100 mcg-umeclid 1 inh inhalation DAILY #28 ea 11/24/23 06/27/24 Rx 62.5 mcg-vilant 25 mcg inhalat.powder (Trelegy Ellipta) clopidogrel 75 mg tablet (Plavix) 75 mg PO HS #30 tabs 12/27/23 06/27/24 Rx Tirosint 125 mcg capsule 125 mcg PO QAM #30 caps 01/24/24 06/27/24 Rx (levothyroxine) ferrous sulfate 325 mg (65 mg 325 mg PO DAILY@1200 #30 tabs 01/24/24 06/27/24 Rx iron) tablet multivitamin (Daily Multi-Vitamin 1 tab PO QAM #30 tabs 03/07/24 06/27/24 Rx tablet) cholecalciferol (vitamin D3) 125 125 mcg PO DAILY@1200 #30 caps 03/20/24 06/27/24 Rx mcg (5,000 unit) capsule tamsulosin 0.4 mg capsule (Flomax) 0.4 mg PO QPM #90 caps 03/20/24 06/27/24 Rx insulin glargine 100 unit/mL (3 See Rx Instructions subcut QAM #60 04/17/24 06/27/24 Rx mL) subcutaneous pen (Lantus mL Solostar U-100 Insulin) blood sugar diagnostic (OneTouch #500 ea 05/09/24 06/27/24 Rx Verio test strips) atorvastatin 40 mg tablet 40 mg PO HS #30 tabs 05/15/24 06/27/24 Rx molnupiravir 200 mg capsule (EUA) 800 mg (4 x 200 mg) PO Q12H 5 days 06/27/24 06/27/24 Rx (Lagevrio) #40 caps codeine 10 mg-guaifenesin 100 mg/5 5 ml PO Q6H PRN For Cough #473 mL 07/03/24 Rx mL oral liquid Past Med/Surg History Problem List (Updated 07/15/24 @ 16:58 by Aristides eFlix PA-C) Uncontrolled type 2 diabetes mellitus with hyperglycemia, with long-term current use of insulin Elevated troponin I level (Acute) Hypertension Bladder cancer Hematuria (Acute) Spastic bladder Diastolic dysfunction COPD (chronic obstructive pulmonary disease) (Acute) Depression with anxiety (Chronic) Laryngopharyngeal reflux Low ferritin Vitamin B12 deficiency (dietary) anemia Diabetic peripheral neuropathy (Acute) Very mild Dyslipidemia (Chronic) GERD without esophagitis (Chronic) Hypothyroidism (Chronic) Insomnia (Acute) Iron deficiency anemia (Acute) Pulmonary nodules (Acute) [place] (mycobacterium avium-intracellulare) infection Has been evaluated by ID (started on triple ABX therapy fall 2018), following with pulmonology. Previously had a severe chronic cough but now feels this has mostly resolved on medications. 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 Medical History SOB (shortness of breath) Dyspnea Troponin level elevated On anticoagulant therapy plavix daily Gastroparesis Hypoglycemia Intractable abdominal pain Lactic acidosis Gross hematuria hx of CVA (cerebral vascular accident) 03/2017. Continues on Plavix. Afib Single episode 09/2017 in setting of acute illness. No known reoccurance. Poor historian Pt reports some issues with recall/memory. Nausea Chronic, intermittent. History of stroke Versus TIA, history is unclear, but pt continues on Clopidogrel. Irritable bowel syndrome Depression Cancer H/O BLADDER CA/TURBT- NO CHEMO OR RADIATION Chronic obstructive pulmonary disease Asthma inhaler daily/prn, nebulizer prn Surgical History History of cystoscopy 12/03/20 @ [facility] History of esophagogastroduodenoscopy (EGD) History of cataract surgery left and right History of colonoscopy (~2011) Diverticulosis History of tonsillectomy History of bladder surgery TURBT= 11/01/17= GRADE VIEW 2, MAC 3.0, ETT 8.0 AT [facility] H/O lumbar discectomy Family History Mother Family history of diabetes mellitus Myocardial infarction Father Myocardial infarction Other No family history of bleeding disorder Denies family history of Ovarian cancer Prostate cancer Breast cancer Colorectal cancer Social History Smoking Status: Never smoker Tobacco Type: Cigarettes Second Hand Exposure: No; Do You Dip or Chew Tobacco: No; Hx Alcohol Use: No Hx Substance Use: No Preferred Language: Romanian Communication Ability: Effective Visual Impairment: No Limitations Hearing Ability: Normal Canvas Marker Required: No Beliefs That Will Affect Care: None marital status: / Current Living Situation: Alone current occupational status: retired How many Children do You have: 2 Feels Safe at Home: Yes Childhood Exposure to Second-Hand Smoke: No Diet: diabetic and regular caffeine: Yes during the past year weight has: remained stable Dental Care, Regularly: Yes Physical Activity Frequency: Does not Exercise Seatbelt Use: always Sunscreen Use: No Do you think of yourself as: straight/heterosexual Gender Identity: Male Assistive Devices: Glasses Review of Systems Review of Systems: See HPI above Physical Exam Physical Exam: General: no acute distress; pleasant affect; non-toxic appearing; frail appearing; cooperative; SpO2 98% on RA HEENT: normocephalic, atraumatic; no scleral icterus; PERRLA; vision and hearing grossly intact Neck: supple; no lymphadenopathy; trachea midline Skin: Pale; warm, dry without signs of tenting; no cyanosis; no rashes, bruising, lesions, or erythema noted CV: chest wall NTP; RRR; S1/S2 normal; no murmurs/rubs/gallops; pulses intact and symmetric at radial, DP, and PT Lungs: no acute respiratory distress; symmetrical chest wall expansion; clear breath sounds across all lung boyd w/o adventitious sounds; no wheezing ABD: Soft, NTP; BS present; no rebound/guarding; no distention : Nurse salsa dance instructor present in the room; patient does have blood draining from the penis, and the head of the penis is vaguely purple in appearance; mild suprapubic tenderness MSK: no tics or fasciculations; no edema noted in the LEs b/l, nonerythematous Neuro: A&Ox3; normal mood and affect; fluent speech; no focal deficits; sensation intact and symmetric in the lower extremities bilaterally Results & Data Results & Data Vital Signs (Past 12 Hours) Vital Signs Temp Pulse Resp BP Pulse Ox O2 Del Method 07/15/24 14:38 36.5 C 101 H 20 113/60 93 Room Air Laboratory Results Abnormal lab results 07/15/24 07/15/24 Range/Units 15:11 15:15 WBC 11.76 H (4.8-10.8) K/ul RBC 4.13 L (4.70-6.10) M/uL Hgb 12.3 L (14.0-18.0) g/dl Hct 36.5 L (42.0-52.0) % MPV 9.2 L (9.4-12.4) fL Neut # (Auto) 9.74 H (1.40-6.50) K/uL Lymph # (Auto) 0.93 L (1.20-3.40) K/uL [place] # (Auto) 0.80 H (0.11-0.59) K/uL Sodium 135 L (136-145) mmol/L BUN 29 H (6-23) mg/dl BUN/Creatinine Ratio 20.7 H (10-20) Glucose 372 H* (70-99(Fasting)) mg/dl Alkaline Phosphatase 111 H (34-104) U/L Urine Appearance Turbid A (Clear) Urine Protein 3+ H (Negative) Urine Glucose (UA) 3+ H (Negative) Urine Blood 3+ H (Negative) Urine RBC >20 H (0-2) /hpf Code Status & VTE Plan Code Status DNR/DNI VTE Prophylaxis Plan VTE Prophylaxis will be ordered: Yes Supervising Physician Co-Signing Physician Notes Patient seen and examined, chart reviewed, case discussed with Jeet Coe PA-C and I agree with the assessment and plan as above except as otherwise noted Labs and images reviewed Darrick is a 83-year-old male with past medical history of recent cystoscopy and fulguration due to TCC who had his Plavix on hold for a week who restarted this several days ago and has had ongoing hematuria since. Urology is aware. Patient's hemoglobin is within 1 point of prior however has continued to have ongoing bleeding and patient feels both due to bleeding in his condition he is not able to manage at home where he lives alone. If patient is retaining, or if obstruction develops then place Mondragon and irrigate. Hemoglobin trended. Plavix held. History of TIA/CVA, no indwelling stents. No indication for transfusion. No chest pain, chest pressure. Mildly tachycardic, fluids given, pain control overnight. Mild suprapubic tenderness at time of visit, no active bleeding at time assessment. Agree with above PG Care Time/CCT Total # of Minutes Spent Total Time Spent with Patient: Total time spent is greater than 50% in coordination of care (as documented) at patient's floor/unit and/or counseling patient: C[place] [address] INT INP/OBS CARE 2/55MIN Patient Type Established Medical Decision Making Moderate Complexity Diagnoses Hematuria R31.9 Uncontrolled type 2 diabetes mellitus with hyperglycemia, with long-term current use of insulin E11.65; Z79.4 Bladder cancer C67.9
[2024-07-15] MEDS: LACTATED RINGER'S 1,000 ML IV SCH (18:26)
[2024-07-15] MEDS ORDERED: CARBOHYDRATES FOR HYPOGLYCEMIA PO PRN (20:26)
[2024-07-15] MEDS ORDERED: GLUCOSE 40% GEL 15 GM TUBE PO PRN (20:26)
[2024-07-15] MEDS ORDERED: GLUCOSE 10 TAB/TUBE PO PRN (20:26)
[2024-07-15] MEDS ORDERED: DEXTROSE 50% 50 ML SYRINGE IV PRN (20:26)
[2024-07-15] MEDS ORDERED: GLUCAGON FOR INJ 1 MG VIAL SQ PRN (20:26)
[2024-07-15] MEDS ORDERED: ALBUTEROL HFA 8 GM INHALER INH PRN (20:26)
[2024-07-15] MEDS: ACETAMINOPHEN 325 MG TAB PO PRN (21:24)
[2024-07-15] MEDS: OLANZAPINE 2.5 MG TAB PO SCH (21:25)
[2024-07-15] MEDS: MIRTAZAPINE SOLTAB 15 MG PO SCH (21:25)
[2024-07-15] MEDS: ATORVASTATIN 40 MG TAB PO SCH (21:26)
[2024-07-15] MEDS: TAMSULOSIN HCL 0.4 MG CAP PO SCH (21:26)
[2024-07-15] MEDS: VENLAFAXINE HCL XR 150 MG CAPXR PO SCH (21:29)
[2024-07-15] MEDS: INSULIN ASPART PER UNIT CHARGE SC SCH (21:55)
[2024-07-15] MEDS: METOPROLOL SUCC 50MG EXT REL TAB PO SCH (22:08)
[2024-07-15] MEDS: LACTATED RINGER'S 500 ML IV ONE (22:09)
[2024-07-15] MEDS: INSULIN HUMAN REGULAR PER UNIT 5 UNITS in SYRINGE 4.95 ML IV STA (22:09)
[2024-07-15] MEDS: MoRPHine SULFATE 2 MG/ML CARP IV ONE (22:39)
[2024-07-15] MEDS: LACTATED RINGER'S 1,000 ML IV ONE (22:50)
[2024-07-16] MEDS: LEVOTHYROXINE SODIUM 125 MCG TABLET PO SCH (05:30)
[2024-07-16 07:08] LABS: Basophils # (auto) 0.05 K/uL (0.00-0.20); Basophils % (auto) 0.5 %; Eosinophils % (auto) 1.1 %; Hematocrit (blood only) 28.4 % (42.0-52.0); Hemoglobin 9.6 g/dl (14.0-18.0); Immature Granulocytes # (auto) 0.03 K/uL (0.01-0.20); Immature Granulocytes % (auto) 0.3 %; Lymphocytes # (auto) 1.24 K/uL (1.20-3.40); Lymphocytes % (auto) 13.1 %; Mean Corpuscular Hemoglobin 30.2 pg (25.0-34.0); Mean Corpuscular Hgb Conc 33.8 g/dL (32.0-36.0); Mean Corpuscular Volume 89.3 fL (80.0-100.0); Mean Platelet Volume 9.1 fL (9.4-12.4); Monocytes # (auto) 0.95 K/uL (0.11-0.59); Neutrophils # (auto) 7.11 K/uL (1.40-6.50); Platelet Count 274 K/uL (130-400); RDW Coefficient of Variation 12.9 % (11.5-14.5); RDW Standard Deviation 42.1 fL (36.4-46.3); Red Blood Count 3.18 M/uL (4.70-6.10); White Blood Count 9.48 K/ul (4.8-10.8)
[2024-07-16 07:30] LABS: BUN Creatinine Ratio 24.4 (10-20); Calcium 9.1 mg/dl (8.6-10.3); Creatinine Clr Calc Pharmacy 38.9 ml/min; Est GFR (African American) 57.9 ml/min; Potassium 4.7 mmol/L (3.5-5.1)
[2024-07-16 08:39] LABS: Estimated Average Glucose 252 mg/dl; Hemoglobin A1C 10.4 % (4.5-5.6)
[2024-07-16] MEDS ORDERED: PHARMACY GLYCEMIC MGMT CONSULT PRN (08:44)
[2024-07-16] MEDS ORDERED: NON-FORMULARY MEDICATION (Fluticasone-Umeclidin-Vilanter [Trelegy Ellipta] 100-62.5-25 mcg INH SCH (09:00)
[2024-07-16] MEDS ORDERED: LANTUS PER UNIT CHARGE SQ SCH (09:00)
[2024-07-16] MEDS: LANTUS PER UNIT CHARGE SC SCH (09:22)
[2024-07-16] MEDS: PANTOprazole 40 MG TAB PO SCH (09:26)
[2024-07-16] MEDS: UMECLIDINIUM/VILANTEROL 62.5/25MCG 7 PUFFS/INHALER INH SCH (09:27)
[2024-07-16] MEDS: FLUTICASONE FUROATE 100MCG 14 PUFFS/INHALER INH SCH (09:27)
--- NOTE | 2024-07-16 09:27 | Pharmacy Report ---
Pharmacy Glycemic Short Note 2 - Date of Service July 16, 2024 - Glycemic Short BSG Results (Last 24 hours): 07/15/24 07/15/24 07/15/24 15:11 20:19 20:29 Glucose 372 H* POC Glucose 428 H* 449 H* 07/15/24 07/16/24 07/16/24 23:52 06:43 07:42 Glucose 138 H POC Glucose 235 H 137 H OUTPATIENT ANTIDIABETIC REGIMEN: * Lantus 45 units SQ daily * Novolog 8-12 units SQ AC HbA1C: 10.4% ASSESSMENT: * Pt is an 84 YOM admitted with hematuria. History of DM2 on insulin therapy at home. Pharmacy consulted to assist with inpatient glycemic management. * BSGs [phone]/dl since admission. Received a 5 units IV insulin bolus last night + Novolog SQ correction (unclear of dose). * Ordered a diet, other stressors stable. * Begin Lantus qAM slightly reduced from home regimen (titrate as appropriate). Novolog ACHS moderate stress scale. PLAN FOR INPATIENT GLYCEMIC CONTROL: * Hold outpatient oral diabetes medications * Basal insulin * Lantus 32 units SQ daily * Bolus insulin * NovoLog per scale ACHS or Q6hrs while NPO * Goal Range: Low 110 mg/dL - High 140 mg/dL * Correction Factor: 30 mg/dL/unit * Nutritional / Prandial insulin per carb ratio of 1 unit per 10 grams CHO consumed
[2024-07-16] MEDS: FERROUS SULFATE 325 MG TAB PO SCH (12:53)
--- NOTE | 2024-07-16 13:24 | Urology Consultation ---
Date of Consultation July 16, 2024 Assessment & Plan (1) Hematuria: (2) Bladder cancer: Plan 84yo/M with a hx of bladder cancer and hematuria who is s/p cystoscopy with fulguration on 07/11/2024 in the urology clinic who presented to the ED with gross hematuria. - He is afebrile with stable vitals. - Lab work reviewed -Hemoglobin 9.6 (12.3 yesterday); Creatinine 1.31; WBC 9.48. - Urinalysis on arrival with 3+ blood, >20RBC otherwise unremarkable. - Voiding spontaneously w/hematuria. PVRs have been acceptable. - No plan for acute intervention at this time. - Hematuria likely due to recent procedure and anticoagulation. - Continue to monitor ability to void and urine output. Recommend checking bladder scans/PVRs to ensure he is emptying. - If patient develops urinary retention/clot obstruction, recommend placing a large bore Mondragon catheter and can manually hand irrigate as needed for clots/obstruction, retention, suprapubic pain. - Would also recommend checking a urine culture given his reports of dysuria. - Renal ultrasound ordered for today. - Continue supportive care. - Continue to trend labs. - Anticoagulation on hold. - Urology to follow. Plan reviewed with Dr. Quijano. History of Present Illness Attending Physician: Placido Roche History of Present Illness 84-year-old male with a past medical history including bladder cancer and hematuria who presented to the ED on 07/15/24 with gross hematuria. Patient had an outpatient cystoscopy with fulguration on 07/11/[address] Malone. He reports developing hematuria a few days after his procedure. He reportedly stopped Plavix for 5 days prior to his procedure but started again that evening or following day. He was admitted to medicine service for further managmenet and monitoring. Urology consulted for hematuria. On exam today, he is voiding spontaneously in the urinal. Still with hematuria. Also reports frequency and incontinence. Some dysuria. He denies bladder pain/pressure. Denies f/c/n/v. Plavix is on hold. No new imaging for review. Allergies Allergy/AdvReac Type Severity Reaction Status Date / Time doxycycline AdvReac Intermediate nausea Verified 06/27/24 11:14 levofloxacin AdvReac Mild fidgety Verified 06/27/24 11:14 and anxiety oxycodone AdvReac Mild NAUSEA AND Verified 06/27/24 11:14 VOMITING Home Medications Medication Instructions Recorded Confirmed Type mirtazapine 45 mg tablet 45 mg PO HS 03/24/21 07/16/24 History venlafaxine 150 mg 150 mg PO HS 03/24/21 07/16/24 History capsule,extended release 24 hr nebulizer accessories #1 ea 12/08/21 06/27/24 Rx nebulizer and tubing #1 ea 12/08/21 06/27/24 Rx albuterol sulfate 90 mcg/actuation 2 puff inhalation Q4H PRN 01/17/23 07/16/24 Rx aerosol inhaler Shortness Of Breath #18 grams olanzapine 2.5 mg tablet 2.5 mg PO QPM #20 tabs 01/18/23 07/16/24 Rx lactobacillus combination no.8 3 3,000 mmu cells PO UD 01/28/23 07/16/24 History billion cell capsule pen needle, diabetic 32 gauge x #500 ea 07/11/23 06/27/24 Rx 5/32" (BD Ultra-Fine Miranda Pen Needle) albuterol sulfate 2.5 mg/3 mL See Rx Instructions .Route 09/06/23 07/16/24 Rx (0.083 %) solution for nebulization .COMPLEX #180 mL ondansetron 4 mg disintegrating 4 mg PO Q8H PRN nausea and 09/27/23 07/16/24 Rx tablet vomiting #30 tabs Novolog FlexPen U-100 Insulin 100 20 unit (0.2 mL) subcut TID #30 mL 10/06/23 Rx unit/mL (3 mL) subcutaneous (insulin aspart U-100) metoprolol succinate 50 mg 50 mg PO BIDM #60 tabs 10/19/23 07/16/24 Rx tablet,extended release 24 hr pantoprazole 20 mg tablet,delayed 20 mg PO BIDM #60 tabs 11/02/23 07/16/24 Rx release carbamide peroxide 6.5 % ear drops 5 drp otic (ear) BID 4 days #15 mL 11/16/23 07/16/24 Rx (Debrox) fluticasone fur. 100 mcg-umeclid 1 inh inhalation DAILY #28 ea 11/24/23 07/16/24 Rx 62.5 mcg-vilant 25 mcg inhalat.powder (Trelegy Ellipta) clopidogrel 75 mg tablet (Plavix) 75 mg PO HS #30 tabs 12/27/23 07/16/24 Rx Tirosint 125 mcg capsule 125 mcg PO QAM #30 caps 01/24/24 07/16/24 Rx (levothyroxine) ferrous sulfate 325 mg (65 mg 325 mg PO DAILY@1200 #30 tabs 01/24/24 07/16/24 Rx iron) tablet multivitamin (Daily Multi-Vitamin 1 tab PO QAM #30 tabs 03/07/24 07/16/24 Rx tablet) cholecalciferol (vitamin D3) 125 125 mcg PO DAILY@1200 #30 caps 03/20/24 07/16/24 Rx mcg (5,000 unit) capsule tamsulosin 0.4 mg capsule (Flomax) 0.4 mg PO QPM #90 caps 03/20/24 07/16/24 Rx insulin glargine 100 unit/mL (3 See Rx Instructions subcut QAM #60 04/17/24 07/16/24 Rx mL) subcutaneous pen (Lantus mL Solostar U-100 Insulin) blood sugar diagnostic (OneTouch #500 ea 05/09/24 06/27/24 Rx Verio test strips) atorvastatin 40 mg tablet 40 mg PO HS #30 tabs 05/15/24 07/16/24 Rx codeine 10 mg-guaifenesin 100 mg/5 5 ml PO Q6H PRN For Cough #473 mL 07/03/24 07/16/24 Rx mL oral liquid Patient History Medical History SOB (shortness of breath) Dyspnea Troponin level elevated On anticoagulant therapy plavix daily Gastroparesis Hypoglycemia Intractable abdominal pain Lactic acidosis Gross hematuria hx of CVA (cerebral vascular accident) 03/2017. Continues on Plavix. Afib Single episode 09/2017 in setting of acute illness. No known reoccurance. Poor historian Pt reports some issues with recall/memory. Nausea Chronic, intermittent. History of stroke Versus TIA, history is unclear, but pt continues on Clopidogrel. Irritable bowel syndrome Depression Cancer H/O BLADDER CA/TURBT- NO CHEMO OR RADIATION Chronic obstructive pulmonary disease Asthma inhaler daily/prn, nebulizer prn Surgical History History of cystoscopy 12/03/20 @ [facility] History of esophagogastroduodenoscopy (EGD) History of cataract surgery left and right History of colonoscopy (~2011) Diverticulosis History of tonsillectomy History of bladder surgery TURBT= 11/01/17= GRADE VIEW 2, MAC 3.0, ETT 8.0 AT [facility] H/O lumbar discectomy Family History Mother Family history of diabetes mellitus Myocardial infarction Father Myocardial infarction Other No family history of bleeding disorder Denies family history of Ovarian cancer Prostate cancer Breast cancer Colorectal cancer Social History Smoking Status: Former smoker Tobacco Type: Cigarettes Second Hand Exposure: No; Do You Dip or Chew Tobacco: No; Tobacco Cessation Education Requested by Patient: No Hx Alcohol Use: No Hx Substance Use: No Preferred Language: Citizen [place] Communication Ability: Effective Visual Impairment: No Limitations Hearing Ability: Normal Van Loader Required: No Beliefs That Will Affect Care: None marital status: / Current Living Situation: Alone current occupational status: retired How many Children do You have: 2 Other Information That Helps Us Care for You: No Feels Safe at Home: Yes Safety Concerns: Feels Safe At This Time Childhood Exposure to Second-Hand Smoke: No Diet: diabetic and regular caffeine: Yes during the past year weight has: remained stable Dental Care, Regularly: Yes Physical Activity Frequency: Does not Exercise Seatbelt Use: always Sunscreen Use: No Do you think of yourself as: straight/heterosexual Gender Identity: Male Assistive Devices: None Review of Systems Review of Systems: All systems reviewed & are unremarkable except as noted in HPI & below Physical Exam Constitutional: no acute distress Respiratory: no respiratory distress and no labored breathing Gastrointestinal (Abdomen): Percussion/Palpation: abdomen soft; abdomen nontender Musculoskeletal: Head/Neck/Chest: normocephalic Neurologic: moves all extremities and awake Psychiatric: A+Ox3, euthymic affect Genitourinary: Small amount of hematuria in urinal Results & Data Vital Signs (Past 12 Hours) Vital Signs Temp Pulse Resp BP BP Pulse Ox O2 Del Method 07/16/24 09:26 78 104/66 07/16/24 07:04 36.8 C 87 16 102/60 94 Room Air PG Care Time/CCT Total # of Minutes Spent Total Time Spent with Patient: Total time spent is greater than 50% in coordination of care (as documented) at patient's floor/unit and/or counseling patient: Coding Level of Care Code 48022 INT INP/OBS CARE 2/55MIN Diagnoses Hematuria R31.9 Bladder cancer C67.9
--- NOTE | 2024-07-16 13:54 | Hospitalist Progress Note ---
Date of Service July 16, 2024 Assessment & Plan (1) Hematuria: Plan: Patient presented to ED on 07/15 following a new onset of hematuria that began on 07/14 and urinary incontinence that began 07/12. Patient had recent cystoscopy with fulguration for bladder cancer with Dr. Malone on 07/11 hgb 12.3 on arrival, reviewed hgb 07/16 afternoon stable at 9.7. Hold Plavix - patient unsure why he is on this. Hx of stroke possibly? s/p LR x 2L Tamsulosin HS Tylenol prn for pain Urology consult reviewed 07/16 no plan for acute intervention hematuria due to recent procedure and anticoagulation bladder scans/PVRs to ensure emptying if patient develops urinary retention/clot obstruction, recommend large bore goel catheter and manually hand irrigate prn for clots/obstruction, retention, suprapubic pain check urine culture renal US Renal ultrasound reviewed 07/16: no renal calculi/hydronephrosis identified by US. decompressed urinary bladder w/ indeterminate structure within urinary bladder lumen. ddx considerations include blood clot, mass vs prostate tissue protruding into base of bladder. findings could be correlated with cystoscopy. BMP reviewed 07/16: BUN 32, creatinine 1.31, electrolytes stable. AM CBC, BMP (2) Bladder cancer: Plan: see plan above (3) Uncontrolled type 2 diabetes mellitus with hyperglycemia, with long-term current use of insulin: Plan: Last A1c at 9.9% on 11/17/2023 Patient reports he takes 40u Lantus QAM; most recent PCP note on 06/27 was 45u QAM, but patient reports they have been scaling back on this Pharmacy consulted, appreciate recommendations Lantus 32 units SQ daily Novolog per scale ACHS or Q6hrs while NPO goal: 110-140 CF 30 Carb ratio 1:10 Plan Disposition: Continued inpatient stay DNR/DNI T2DM diet VTE PPx: Hold Plavix and chemical DVT PPx in the setting of gross hematuria; [facility] [place] Admission and Anticipated Discharge Date Admission Date: July 15, 2024 Subjective Patient seen and examined this afternoon. Patient still experiencing hematuria. He denies any additional complaints today. He is unsure why he is on plavix but per documentation there is history of stroke listed. He denied dizziness or shortness of breath. Denied chest pain. Physical Exam 2 Constitutional: WD/WN, vitals as above Eyes: PERRL, conjunctivae normal, anicteric sclerae Respiratory: normal respiratory effort, lungs clear to auscultation Cardiovascular: RRR, no murmur, no edema Skin: no rashes, warm and dry Psychiatric: A+Ox3, euthymic affect Results & Data Results & Data Vital Signs (Past 12 Hours) Vital Signs Temp Pulse Resp BP BP Pulse Ox O2 Del Method 07/16/24 09:26 78 104/66 07/16/24 07:04 36.8 C 87 16 102/60 94 Room Air Laboratory Results 07/16/24 16:34 07/16/24 06:43 PG Care Time/CCT Total # of Minutes Spent Total Time Spent with Patient: Total time spent is greater than 50% in coordination of care (as documented) at patient's floor/unit and/or counseling patient: Coding Level of Care Code 33050 SUB INP/OBS CARE 3/50MIN Diagnoses Gross hematuria R31.0 Hematuria type: gross Malignant neoplasm of urinary bladder, unspecified site C67.9 Bladder location: unspecified site Uncontrolled type 2 diabetes mellitus with hyperglycemia, with long-term current use of insulin E11.65; Z79.4 (1) Hematuria Hematuria type: gross Qualified Code(s): R31.0 - Gross hematuria (2) Bladder cancer Bladder location: unspecified site Qualified Code(s): C67.9 - Malignant neoplasm of bladder, unspecified
--- NOTE | 2024-07-16 14:13 | Ultrasound Report ---
RENAL ULTRASOUND HISTORY: Acute hematuria gross hematuria COMPARISON: CT 12/25/2022 FINDINGS: Right kidney: 10.5 cm. No hydronephrosis. Normal corticomedullary differentiation and cortical thickn ess. Left kidney: 10.5 cm. No hydronephrosis. Normal corticomedullary differentiation and cortical thickne ss. Bladder: Avascular debris versus mass within the urinary bladder lumen measures up to approximately 7 .5 cm. The urinary bladder is partially decompressed. IMPRESSION: 1. No renal calculi or hydronephrosis identified by ultrasound. 2. Decompressed urinary bladder with indeterminate structure within the urinary bladder lumen. Differ ential considerations include blood clot, mass versus prostate tissue protruding into the base of the bladder. Findings could be correlated with cystoscopy. ACT 112: Negative or not required by law. Electronically signed by: Boy Griffith M.D. 07/16/2024 2:11 PM
[2024-07-16 17:05] LABS: Hematocrit (blood only) 29.2 % (42.0-52.0); Hemoglobin 9.7 g/dl (14.0-18.0); Mean Corpuscular Hemoglobin 29.5 pg (25.0-34.0); Mean Corpuscular Hgb Conc 33.2 g/dL (32.0-36.0); Mean Corpuscular Volume 88.8 fL (80.0-100.0); Mean Platelet Volume 9.1 fL (9.4-12.4); Platelet Count 278 K/uL (130-400); RDW Coefficient of Variation 12.8 % (11.5-14.5); RDW Standard Deviation 41.4 fL (36.4-46.3); Red Blood Count 3.29 M/uL (4.70-6.10); White Blood Count 8.04 K/ul (4.8-10.8)
[2024-07-17 08:06] LABS: Basophils # (auto) 0.03 K/uL (0.00-0.20); Basophils % (auto) 0.4 %; Eosinophils # (auto) 0.16 K/uL (0.00-0.50); Eosinophils % (auto) 2.1 %; Hematocrit (blood only) 29.3 % (42.0-52.0); Hemoglobin 9.6 g/dl (14.0-18.0); Immature Granulocytes # (auto) 0.02 K/uL (0.01-0.20); Immature Granulocytes % (auto) 0.3 %; Lymphocytes # (auto) 0.96 K/uL (1.20-3.40); Lymphocytes % (auto) 12.4 %; Mean Corpuscular Hemoglobin 29.3 pg (25.0-34.0); Mean Corpuscular Hgb Conc 32.8 g/dL (32.0-36.0); Mean Corpuscular Volume 89.3 fL (80.0-100.0); Monocytes # (auto) 0.69 K/uL (0.11-0.59); Monocytes % (auto) 8.9 %; Neutrophils # (auto) 5.87 K/uL (1.40-6.50); Neutrophils % (auto) 75.9 %; Platelet Count 267 K/uL (130-400); RDW Coefficient of Variation 12.9 % (11.5-14.5); Red Blood Count 3.28 M/uL (4.70-6.10); White Blood Count 7.73 K/ul (4.8-10.8)
--- NOTE | 2024-07-17 08:14 | Urology Progress Note ---
Date of Service July 17, 2024 Assessment & Plan (1) Hematuria: Plan: 84yo/M with a hx of bladder cancer and hematuria who is s/p cystoscopy with fulguration on 07/11/2024 in the urology clinic who presented to the ED with gross hematuria. - He is afebrile with stable vitals. - Lab work reviewed -Hemoglobin stable at 9.6 WBC 7.73. - Urinalysis on arrival with 3+ blood, >20RBC otherwise unremarkable. - Voiding spontaneously w/hematuria. PVR 256 mL this am. Continue to monitor. - Hematuria likely due to recent procedure and anticoagulation. - JAVIER yesterday showing clot within the bladder. - Plan of care reviewed with Dr. Malone. - Plan for cystoscopy and clot evacuation today in OR. - Keep n.p.o. for procedure. - Will cover with Ancef prior to procedure. - Continue supportive care. - Continue to trend labs. - Anticoagulation on hold. - Urology to follow. Admission and Anticipated Discharge Date Admission Date: July 15, 2024 Supervising Physician Co-Signing Physician Notes Agree with above. plan for cysto, clot evacuation today. Risks, benefits, and expectations reviewed Subjective Patient seen and examined at bedside this morning. He is resting in bed, arouses easily to speech. Denies suprapubic or flank pain. He reports di fficulty voiding overnight. Voiding this am. Notes hematuria with clots. Bladder scans this am 149 mL, 256 mL. Denies fever or chills. Review of Systems Constitutional: as per Subjective / HPI Genitourinary: + as per Subjective / HPI Physical Exam Constitutional: well developed and well nourished; no acute distress Respiratory: normal respiratory effort; no respiratory distress and no labored breathing Gastrointestinal (Abdomen): Inspection/Auscultation: abdomen normal to inspection Musculoskeletal: Head/Neck/Chest: normocephalic Neurologic: moves all extremities and awake Psychiatric: Orientation: alert and oriented x 3 Genitourinary: Urine in urinal is dark maroon Results & Data Vital Signs (Past 12 Hours) Vital Signs Temp Pulse Resp BP Pulse Ox O2 Del Method 07/17/24 07:08 36.6 C 79 17 105/56 L 98 Room Air 07/16/24 20:28 36.7 C 86 18 134/71 95 Room Air PG Care Time/CCT Total # of Minutes Spent Total Time Spent with Patient: Total time spent is greater than 50% in coordination of care (as documented) at patient's floor/unit and/or counseling patient: Coding Level of Care Code 63207 SUB INP/OBS CARE 2/35MIN Diagnoses Gross hematuria R31.0 Hematuria type: gross (1) Hematuria Hematuria type: gross Qualified Code(s): R31.0 - Gross hematuria
[2024-07-17 08:21] LABS: BUN Creatinine Ratio 23.4 (10-20); Creatinine Clr Calc Pharmacy 45.9 ml/min; Est GFR (African American) 70.8 ml/min; Est GFR (Non-African American) 61.1 ml/min; Potassium 4.5 mmol/L (3.5-5.1)
[2024-07-17] MEDS: LACTATED RINGER'S 1,000 ML IV SCH (09:08)
[2024-07-17] MEDS ORDERED: PROPOFOL IV EMULSION 10 MG/ML 20 ML VIAL IV ONE ×2 (09:11→09:14)
[2024-07-17] MEDS ORDERED: fentaNYL citrate PF 100 MCG/2 ML VIAL ONE (09:11)
[2024-07-17] MEDS ORDERED: MIDAZOLAM HCL 1 MG/ML 2ML VIAL ONE (09:12)
--- NOTE | 2024-07-17 09:24 | Anesthesiology Consultation ---
Date of Service July 17, 2024 Assessment & Plan (1) Encounter for pre-operative examination: Chart Review Chart Review: Acceptable Risk for Surgery and Patient NOT seen in Pre Admission Testing Consults Requested none History Surgery Operation Date: 07/17/24 07:00 Proposed Procedures p Cystoscopy with Clot Evacuation - Jed Malone MD Height/Weight Height: 6 ft Weight: 64.3 kg Allergies Allergy/AdvReac Type Severity Reaction Status Date / Time doxycycline AdvReac Intermediate nausea Verified 06/27/24 11:14 levofloxacin AdvReac Mild fidgety Verified 06/27/24 11:14 and anxiety oxycodone AdvReac Mild NAUSEA AND Verified 06/27/24 11:14 VOMITING Medications Home Medications Medication Instructions Recorded Confirmed Last Taken mirtazapine 45 mg tablet 45 mg PO HS 03/24/21 07/16/24 02/02/23 venlafaxine 150 mg 150 mg PO HS 03/24/21 07/16/24 02/02/23 capsule,extended release 24 hr nebulizer accessories #1 ea 12/08/21 06/27/24 Unknown nebulizer and tubing #1 ea 12/08/21 06/27/24 Unknown albuterol sulfate 90 mcg/actuation 2 puff inhalation Q4H PRN 01/17/23 07/16/24 02/03/23 08:00 aerosol inhaler Shortness Of Breath #18 grams olanzapine 2.5 mg tablet 2.5 mg PO QPM #20 tabs 01/18/23 07/16/24 02/02/23 lactobacillus combination no.8 3 3,000 mmu cells PO UD 01/28/23 07/16/24 02/02/23 billion cell capsule pen needle, diabetic 32 gauge x #500 ea 07/11/23 06/27/24 Unknown 5/32" (BD Ultra-Fine Miranda Pen Needle) albuterol sulfate 2.5 mg/3 mL See Rx Instructions .Route 09/06/23 07/16/24 Unknown (0.083 %) solution for nebulization .COMPLEX #180 mL ondansetron 4 mg disintegrating 4 mg PO Q8H PRN nausea and 09/27/23 07/16/24 Unknown tablet vomiting #30 tabs Novolog FlexPen U-100 Insulin 100 20 unit (0.2 mL) subcut TID #30 mL 10/06/23 07/16/24 Unknown unit/mL (3 mL) subcutaneous (insulin aspart U-100) metoprolol succinate 50 mg 50 mg PO BIDM #60 tabs 10/19/23 07/16/24 Unknown tablet,extended release 24 hr pantoprazole 20 mg tablet,delayed 20 mg PO BIDM #60 tabs 11/02/23 07/16/24 Unknown release carbamide peroxide 6.5 % ear drops 5 drp otic (ear) BID 4 days #15 mL 11/16/23 07/16/24 Unknown (Debrox) fluticasone fur. 100 mcg-umeclid 1 inh inhalation DAILY #28 ea 11/24/23 07/16/24 Unknown 62.5 mcg-vilant 25 mcg inhalat.powder (Trelegy Ellipta) clopidogrel 75 mg tablet (Plavix) 75 mg PO HS #30 tabs 12/27/23 07/16/24 Unknown Tirosint 125 mcg capsule 125 mcg PO QAM #30 caps 01/24/24 07/16/24 Unknown (levothyroxine) ferrous sulfate 325 mg (65 mg 325 mg PO DAILY@1200 #30 tabs 01/24/24 07/16/24 Unknown iron) tablet multivitamin (Daily Multi-Vitamin 1 tab PO QAM #30 tabs 03/07/24 07/16/24 Unknown tablet) cholecalciferol (vitamin D3) 125 125 mcg PO DAILY@1200 #30 caps 03/20/24 07/16/24 Unknown mcg (5,000 unit) capsule tamsulosin 0.4 mg capsule (Flomax) 0.4 mg PO QPM #90 caps 03/20/24 07/16/24 Unknown insulin glargine 100 unit/mL (3 See Rx Instructions subcut QAM #60 04/17/24 07/16/24 Unknown mL) subcutaneous pen (Lantus mL Solostar U-100 Insulin) blood sugar diagnostic (OneTouch #500 ea 05/09/24 06/27/24 Unknown Verio test strips) atorvastatin 40 mg tablet 40 mg PO HS #30 tabs 05/15/24 07/16/24 Unknown codeine 10 mg-guaifenesin 100 mg/5 5 ml PO Q6H PRN For Cough #473 mL 07/03/24 07/16/24 Unknown mL oral liquid Active Medications Generic Name Dose Route Start Last Admin Trade Name Georgeq PRN Reason Stop Dose Admin Acetaminophen 650 mg 07/15/24 20:26 07/16/24 21:13 Acetaminophen 325 Mg Tab PO 08/14/24 20:25 650 mg Q4H PRN Administration pain/fever Atorvastatin Calcium 40 mg 07/15/24 21:00 07/16/24 21:13 Atorvastatin 40 Mg Tab PO 08/14/24 20:59 40 mg HS NICKI Administration Ferrous Sulfate 325 mg 07/16/24 12:00 07/16/24 12:53 Ferrous Sulfate 325 Mg Tab PO 08/15/24 11:59 325 mg DAILY@1200 NICKI Administration Fluticasone Furoate 1 puffs 07/16/24 09:00 07/16/24 09:27 Fluticasone Furoate 100mcg 14 Puffs/Inhaler INH 08/15/24 08:59 1 puffs DAILY NICKI Administration Lactated Ringer's 1,000 mls @ 15 mls/hr 07/17/24 09:15 07/17/24 09:08 Lr IV 08/16/24 09:14 15 mls/hr .Q24H NICKI Administration Insulin Aspart 0 units 07/15/24 21:45 07/16/24 22:21 Insulin Aspart Per Unit Charge SC 08/14/24 21:44 Not Given ACH NICKI Insulin Glargine 32 units 07/16/24 09:05 07/16/24 09:22 Lantus Per Unit Charge SC 08/15/24 09:04 32 units DAILY NICKI Administration Levothyroxine Sodium 125 mcg 07/16/24 06:30 07/17/24 05:46 Levothyroxine Sodium 125 Mcg Tablet PO 08/15/24 06:29 125 mcg DAILYBB NICKI Administration Metoprolol Succinate 50 mg 07/15/24 21:45 07/16/24 17:06 Metoprolol Succ 50mg Ext Rel Tab PO 08/14/24 21:44 50 mg BIDM NICKI Administration Mirtazapine 45 mg 07/15/24 21:00 07/16/24 21:13 Mirtazapine Soltab 15 Mg PO 08/14/24 20:59 45 mg HS NICKI Administration Olanzapine 2.5 mg 07/15/24 21:00 07/16/24 21:13 Olanzapine 2.5 Mg Tab PO 08/14/24 20:59 2.5 mg QPM NICKI Administration Pantoprazole Sodium 20 mg 07/16/24 08:00 07/16/24 17:06 Pantoprazole 40 Mg Tab PO 08/15/24 07:59 20 mg BIDM NICKI Administration Tamsulosin HCl 0.4 mg 07/15/24 21:00 07/16/24 21:13 Tamsulosin Hcl 0.4 Mg Cap PO 08/14/24 20:59 0.4 mg QPM NICKI Administration Umeclidinium/Vilanterol 1 puffs 07/16/24 09:00 07/16/24 09:27 Umeclidinium/Vilanterol 62.5/25mcg 7 Puffs/Inhaler INH 08/15/24 08:59 1 puffs DAILY NICKI Administration Venlafaxine HCl 150 mg 07/15/24 21:00 07/16/24 21:13 Venlafaxine Hcl Xr 150 Mg Capxr PO 08/14/24 20:59 150 mg HS NICKI Administration NPO Date Last Intake of Fluids: 07/16/24 Time Last Intake of Fluids: 22:00 Date Last Intake of Solids: 07/16/24 Time Last Intake of Solids: 18:00 Past Medical History Medical History SOB (shortness of breath) Dyspnea Troponin level elevated On anticoagulant therapy plavix daily Gastroparesis Hypoglycemia Intractable abdominal pain Lactic acidosis Gross hematuria hx of CVA (cerebral vascular accident) 03/2017. Continues on Plavix. Afib Single episode 09/2017 in setting of acute illness. No known reoccurance. Poor historian Pt reports some issues with recall/memory. Nausea Chronic, intermittent. History of stroke Versus TIA, history is unclear, but pt continues on Clopidogrel. Irritable bowel syndrome Depression Cancer H/O BLADDER CA/TURBT- NO CHEMO OR RADIATION Chronic obstructive pulmonary disease Asthma inhaler daily/prn, nebulizer prn Past Family History Family History Mother Family history of diabetes mellitus Myocardial infarction Father Myocardial infarction Other No family history of bleeding disorder Denies family history of Ovarian cancer Prostate cancer Breast cancer Colorectal cancer Past Surgical History Surgical History History of cystoscopy 12/03/20 @ [facility] History of esophagogastroduodenoscopy (EGD) History of cataract surgery left and right History of colonoscopy (~2011) Diverticulosis History of tonsillectomy History of bladder surgery TURBT= 11/01/17= [facility] 2, MAC 3.0, ETT 8.0 AT [facility] H/O lumbar discectomy Social History Smoking Status: Former smoker tobacco type: cigarettes Do You Dip or Chew Tobacco: No Hx Alcohol Use: No Hx Substance Use: No substance use type: does not use Physical Exam Vital Signs Last Vital Signs Temp 97.9 F 07/17/24 08:52 Pulse 80 07/17/24 08:52 Resp 20 07/17/24 08:52 BP 112/62 07/17/24 08:52 Pulse Ox 99 07/17/24 08:52 O2 Del Method Room Air 07/17/24 08:52 Testing Laboratory Results 07/17/24 07:39 07/17/24 07:39 PT 11.0 Seconds (9.0-12.0) 07/15/24 15:11 INR 1.0 (0.9-1.1) 07/15/24 15:11 APTT 29 Seconds (21-31) 07/15/24 15:11 Hemoglobin A1c 10.4 % (4.5-5.6) H 07/16/24 06:43 Urine Color Red 07/15/24 15:15 Urine Appearance Turbid (Clear) A 07/15/24 15:15 Urine pH 7.0 (4.5-7.5) 07/15/24 15:15 Ur Specific [place] 1.025 (1.000-1.030) 07/15/24 15:15 Urine Protein 3+ (Negative) H 07/15/24 15:15 Urine Glucose (UA) 3+ (Negative) H 07/15/24 15:15 Urine Ketones Negative (Negative) 07/15/24 15:15 Urine Nitrite Negative (Negative) 07/15/24 15:15 Ur Leukocyte Esterase Negative (Negative) 07/15/24 15:15 Urine RBC >20 /hpf (0-2) H 07/15/24 15:15 Urine WBC 0-5 /hpf (0-5) 07/15/24 15:15 Ur Epithelial Cells 0-2 /hpf (0-2) 07/15/24 15:15 07/17/24 07:36 POC Glucose 161 H
[2024-07-17] MEDS ORDERED: ONDANSETRON INJ 2 MG/ML 2 ML VIAL IV PRN (09:25)
[2024-07-17] MEDS ORDERED: fentaNYL citrate PF 100 MCG/2 ML VIAL IV PRN (09:25)
[2024-07-17] MEDS ORDERED: ATROPINE SULFATE 0.1 MG/ML 10ML SYR IV PRN (09:25)
[2024-07-17] MEDS ORDERED: ePHEDrine sulfate 50 MG/ML AMP IV PRN (09:25)
[2024-07-17] MEDS ORDERED: ONDANSETRON INJ 2 MG/ML 2 ML VIAL ONE (09:36)
--- NOTE | 2024-07-17 09:57 | Operative Report ---
PG Post Operative Report Pre & Post Diagnosis Operation Date: 07/17/24 07:00 Pre-Op Diagnosis: Hematuria. Post-Op Diagnosis: Hematuria. I identified the patient and participated in the time-out.: Yes Procedure Operation Date: 07/17/24 07:00 Actual Procedures p Cystoscopy with Clot Evacuation, Fulguration - Jed Malone MD Surgeon Jed Malone MD Draw Off Worker none Estimated Blood Loss 0 Findings Consistent with Post-Op Diagnosis Specimens none Description of Procedure The patient was identified in the preoperative holding area, appropriate informed consents were reviewed and completed and the patient was transferred to the operative suite. Upon arrival, appropriate antibiotics and anesthesia were administered and the patient was placed in dorsal lithotomy position and prepped and draped in sterile fashion. To begin the case I passed a 27 Grenadian resectoscope with 30 degree lens and visual after repair inspection revealed a healthy-appearing urethra and a moderately enlarged prostate with a high bladder neck and a small intravesical median lobe. Upon entry into the bladder immediately encountered a substantial amount of clot. Utilizing a Kristine syringe I was able to evacuate this clot. I would estimate approximately 500 cc of clot were evacuated. After clearing the clot there was no active bleeding within the bladder. I did use a loop electrode and cauterize an area in the posterior wall which had some inflammation. I also cauterized the original biopsy and fulguration site at the dome of the bladder. Hemostasis was excellent. I did not leave a Mondragon catheter. His bladder was emptied and the case concluded. There were no complications. I attest to the content of the Intraoperative Record and any orders documented therein. Any exceptions are noted below.
--- NOTE | 2024-07-17 10:20 | Anesthesiology Progress Note ---
Date of Service July 17, 2024 Anesthesia Post Procedure Vital Signs Vital Signs: Temp Pulse Resp BP BP Pulse Ox O2 Del Method 07/17/24 08:52 97.9 F 80 20 112/62 99 Room Air 07/17/24 07:08 97.9 F 79 17 105/56 L 98 Room Air 07/16/24 20:28 98.0 F 86 18 134/71 95 Room Air 07/16/24 14:53 97.7 F 80 17 122/70 96 Room Air Pain Intensity Groin: Pain Intensity: 10 Lower Abdomen: Pain Intensity: 5 Transfer of Care Handoff Completed per policy Notes Mental Status: alert / awake / arousable and participated in evaluation Patient Amnestic to Procedure: Yes Nausea / Vomiting: adequately controlled Pain: adequately controlled Airway Patency, RR, SpO2: stable & adequate BP & HR: stable & adequate Hydration State: stable & adequate Anesthetic Complications: no major complications apparent and Pt Satisfied with anesthetic care
[2024-07-17] MEDS: ceFAZolin 2000MG 2,000 MG/15 ML SYR IV ONE (11:17)
[2024-07-17] MEDS: PANTOprazole 40 MG TAB PO SCH (11:30)
[2024-07-17] MEDS: LANTUS PER UNIT CHARGE SQ STA (12:01)
--- NOTE | 2024-07-17 14:11 | Hospitalist Progress Note ---
Date of Service July 17, 2024 Assessment & Plan (1) Hematuria: Plan: Patient presented to ED on 07/15 following a new onset of hematuria that began on 07/14 and urinary incontinence that began 07/12. Patient had recent cystoscopy with fulguration for bladder cancer with Dr. Malone on 07/11 hgb 12.3 on arrival, reviewed hgb 07/17 stable at 9.6 Hold Plavix - patient unsure why he is on this. Hx of stroke possibly? s/p LR x 2L Tamsulosin HS Tylenol prn for pain Renal ultrasound reviewed 07/16: no renal calculi/hydronephrosis identified by US. decompressed urinary bladder w/ indeterminate structure within urinary bladder lumen. ddx considerations include blood clot, mass vs prostate tissue protruding into base of bladder. findings could be correlated with cystoscopy. Urology consulted and following s/p cystoscopy w/ clot evacuation 07/17 - per patient hematuria resolved BMP reviewed 07/17: BUN 26, creatinine 1.11, electrolytes stable. AM CBC, BMP (2) Bladder cancer: Plan: see plan above (3) Uncontrolled type 2 diabetes mellitus with hyperglycemia, with long-term current use of insulin: Plan: Last A1c at 9.9% on 11/17/2023 Patient reports he takes 40u Lantus QAM; most recent PCP note on 06/27 was 45u QAM, but patient reports they have been scaling back on this Pharmacy consulted, appreciate recommendations Lantus 32 units SQ daily Novolog per scale ACHS or Q6hrs while NPO goal: 110-140 CF 30 Carb ratio 1:10 Plan Disposition: Continued inpatient stay, anticipate discharge home 07/17 DNR/DNI T2DM diet VTE PPx: Hold Plavix and chemical DVT PPx in the setting of gross hematuria; SCDs Admission and Anticipated Discharge Date Admission Date: July 17, 2024 Subjective Patient seen and examined this afternoon. Patient reports to be feeling well following his cystoscopy. Reports his hematuria has since resolved. He denied any complaints and is hopeful he can return home tomorrow. Physical Exam 2 Constitutional: WD/WN, vitals as above Eyes: PERRL, conjunctivae normal, anicteric sclerae Respiratory: normal respiratory effort, lungs clear to auscultation Cardiovascular: RRR, no murmur, no edema Skin: no rashes, warm and dry Psychiatric: A+Ox3, euthymic affect Results & Data Results & Data Vital Signs (Past 12 Hours) Vital Signs Temp Pulse Pulse Resp BP BP Pulse Ox 07/17/24 10:49 78 20 123/61 99 07/17/24 10:40 36.5 C 76 22 117/56 L 99 07/17/24 10:30 77 18 111/54 L 96 07/17/24 10:20 81 16 102/51 L 98 07/17/24 10:10 80 21 92/56 L 98 07/17/24 10:01 70 17 99/47 L 100 07/17/24 10:00 36.2 C L 69 16 85/41 L 100 07/17/24 08:52 36.6 C 80 20 112/62 99 07/17/24 07:08 36.6 C 79 17 105/56 L 98 O2 Del Method O2 Flow Rate 07/17/24 10:49 Room Air 07/17/24 10:40 Room Air 07/17/24 10:30 Room Air 07/17/24 10:20 Oxymask 3 07/17/24 10:10 Oxymask 6 07/17/24 10:01 Oxymask 07/17/24 10:00 Oxymask 6 07/17/24 08:52 Room Air 07/17/24 07:08 Room Air Laboratory Results 07/17/24 07:39 07/17/24 07:39 PG Care Time/CCT Total # of Minutes Spent Total Time Spent with Patient: Total time spent is greater than 50% in coordination of care (as documented) at patient's floor/unit and/or counseling patient: Coding Level of Care Code 28971 SUB INP/OBS CARE 2/35MIN Diagnoses Gross hematuria R31.0 Hematuria type: gross Malignant neoplasm of urinary bladder, unspecified site C67.9 Bladder location: unspecified site Uncontrolled type 2 diabetes mellitus with hyperglycemia, with long-term current use of insulin E11.65; Z79.4 (1) Hematuria Hematuria type: gross Qualified Code(s): R31.0 - Gross hematuria (2) Bladder cancer Bladder location: unspecified site Qualified Code(s): C67.9 - Malignant neoplasm of bladder, unspecified
[2024-07-18 07:15] VITALS: TEMP 98.2
[2024-07-18 07:30] LABS: Hematocrit (blood only) 26.8 % (42.0-52.0); Hemoglobin 8.8 g/dl (14.0-18.0); Mean Corpuscular Hemoglobin 29.6 pg (25.0-34.0); Mean Corpuscular Hgb Conc 32.8 g/dL (32.0-36.0); Mean Corpuscular Volume 90.2 fL (80.0-100.0); Mean Platelet Volume 9.2 fL (9.4-12.4); Platelet Count 255 K/uL (130-400); RDW Coefficient of Variation 12.9 % (11.5-14.5); RDW Standard Deviation 42.1 fL (36.4-46.3); Red Blood Count 2.97 M/uL (4.70-6.10); White Blood Count 9.57 K/ul (4.8-10.8)
[2024-07-18 07:47] LABS: BUN Creatinine Ratio 18.5 (10-20); Calcium 8.5 mg/dl (8.6-10.3); Creatinine Clr Calc Pharmacy 47.1 ml/min; Est GFR (African American) 73.2 ml/min; Est GFR (Non-African American) 63.1 ml/min; Potassium 4.3 mmol/L (3.5-5.1)
--- NOTE | 2024-07-18 10:30 | Urology Progress Note ---
Date of Service July 18, 2024 Assessment & Plan (1) Hematuria: Plan: 84yo/M with a hx of bladder cancer and hematuria who is s/p cystoscopy with fulguration on 07/11/2024 in the urology clinic who presented to the ED with gross hematuria. - Patient is now POD #1 s/p Cystoscopy with Clot Evacuation, Fulguration with Dr. Malone. - He reports voiding spontaneously without issue and clear yellow urine today. - Remains afebrile with stable vitals. - Lab work reviewed -Hemoglobin 8.8, WBC 9.57, Creatinine 1.08. - Urine culture prelim pin point growth, reincubating - Ok for discharge from standpoint when medically stable. - Continue antibiotics and tailor per final culture results. - Continue supportive care. - Anticoagulation per primary team. - Will plan for outpatient follow-up with our service. - Urology will sign-off. Please call with any further questions, concerns, or changes in patient status. Admission and Anticipated Discharge Date Admission Date: July 17, 2024 Subjective Patient seen at bedside this morning. Awake and resting in bed on arrival, NAD. He reports clear yellow urine and voiding without issue. He denies suprapubic or flank pain. Reports some mild dysuria which has improved since yesterday. Denies f/c/n/v. Review of Systems Constitutional: as per Subjective / HPI Genitourinary: + as per Subjective / HPI Physical Exam Constitutional: well developed and well nourished; no acute distress Respiratory: normal respiratory effort; no respiratory distress and no labored breathing Gastrointestinal (Abdomen): Inspection/Auscultation: abdomen normal to inspection Musculoskeletal: Head/Neck/Chest: normocephalic Neurologic: moves all extremities and awake Psychiatric: Orientation: alert and oriented x 3 Results & Data Vital Signs (Past 12 Hours) Vital Signs Temp Pulse Pulse Resp BP Pulse Ox O2 Del Method 07/18/24 08:14 114/68 07/18/24 07:12 36.8 C 87 17 89/50 L 94 Room Air 07/18/24 01:41 36.7 C 90 18 110/60 93 Room Air PG Care Time/CCT Total # of Minutes Spent Total Time Spent with Patient: Total time spent is greater than 50% in coordination of care (as documented) at patient's floor/unit and/or counseling patient: Coding Level of Care Code 97064 SUB INP/OBS CARE 235MIN Diagnoses Gross hematuria R31.0 Hematuria type: gross (1) Hematuria Hematuria type: gross Qualified Code(s): R31.0 - Gross hematuria
--- NOTE | 2024-07-18 10:45 | Discharge Summary ---
Discharge Summary Date of Service July 18, 2024 Principal Dx & Hospital Course #1 = Principal Diagnosis (1) Hematuria: Patient presented to ED on 07/15 following a new onset of hematuria that began on 07/14 and urinary incontinence that began 07/12. He initially underwent a cystoscopy w/ fulguration for bladder cancer on 07/[address] Malone. After presenting to ED urology was consulted. Patient underwent a renal US on 07/16 that revealed no renal calucli/hydronephrosis identified by US. decompressed urinary bladder w/ indeterminate structure within urinary bladder lumen. ddx considerations include blood clot vs mass vs prostate tissue protruding into base of bladder. He underwent repeat cystoscpoy on 07/17 with clot evacuation. Following cystoscopy patient has been w/o hematuria. CBC 07/18 revealed hgb of 8.8 but likely due to procedure from day before. He is to continue Tamsulosin. Hold plavix until seen by PCP given no clear evidence as to why he is on the medication and given risk of re-bleeding will defer to PCP within next 1-2 weeks. Repeat CBC in 1 week. 3 days of bactrim sent to patient's pharmacy as well. (2) Bladder cancer: see plan above (3) Uncontrolled type 2 diabetes mellitus with hyperglycemia, with long-term current use of insulin: Last A1c at 9.9% on 11/17/2023, resume home diabetic medications upon discharge. Plan Discussed discharge with urology TIFFANIE. Admission HPI Per Admitting Provider Darrick is a 84-year-old gentleman with PMH of T2DM, iron deficiency anemia, GERD, hypothyroidism, dyslipidemia, depression, anxiety, COPD, bladder cancer, and HTN. He presented on 07/15 for hematuria. Patient reports that he had a cystoscopy for bladder cancer with Dr. Quijano on Wednesday 07/11, and felt fine following the procedure. Then on he started to develop hematuria with urination, as well as decreased urinary amount. He believes there may have been blood clots in his urine. He also endorses episodes of urinary incontinence where blood will leak from his penis. He denies any groin pain at rest, but does have significant dysuria. He rates the dysuria 10/10 whenever he needs to urinate. He has not been taking any additional pain medications at home for this. No pain at present. No other drainage from his penis. Patient took all of his regular morning medications today. He was previously stopped on Plavix for 5 days prior to his urological procedure, but then started again on and has been taking it recently; last dose was the evening of 07/14. Patient is unsure why he takes Plavix; he denies a history of CVA/TIA, and denies history of heart stents. He believes it might be for primary prevention. Patient is a former smoker but quit 40 years ago. No recent alcohol use. Patient is mildly tachycardic at 101 bpm at time of admission; vitals otherwise stable. ED course: ROS: Patient endorses lightheadedness, GOMEZ (chronic), hematuria, decreased urinary amount, and loss of urinary continence (which is new for him). Patient denies fever, chills, night sweats, dizziness, headaches, chest pain, chest palpitations, SOB at rest, pleuritic CP, abdominal pain, N/B/D, lower back pain, saddle anesthesia, or change in bowel habits. Patient is unsure what medications he takes on a daily basis, and reports that he uses "pill packs" that are sent in from the pharmacy. He is unsure of the names of the medications. The only medication he knows the dosage for is his long-acting insulin (believes he takes 40u of the Lantus in the mornings). Reached out to med rec, who were unable to verify medications as the patient's pharmacy was closed. Will base current medications off of his last PCP appointment (06/27/24). Please have med rec verify medications once able to reach patient's pharmacy. Discharge Exam Constitutional WD/WN, vitals as above Eyes PERRL, conjunctivae normal, anicteric sclerae Respiratory normal respiratory effort, lungs clear to auscultation Cardiovascular RRR, no murmur, no edema Skin no rashes, warm and dry Psychiatric A+Ox3, euthymic affect Discharge Plan Discharge Items Patient Disposition: Home - Self-Care Reason For Visit: HEMATURIA Discharge Diagnosis: Hematuria Condition on Discharge: Good Activity: Resume your previous activity Non-emergency contact: Primary Care Provider and Urologist Call non-emergency contact if: you have any medication questions and your symptoms worsen Follow-up/Referrals: Maribell Worrell CRNP [Primary Care Provider] - 07/23/24 12:00 pm Jed Malone MD [Physician] - 10/10/24 11:45 am Diet: Carb Consistent or DM2 Ambulatory Orders: Complete Blood Count no Diff (Timed) Timeframe: [id number] Location: Determined by Patient Ordered By: Linda Beltrán Attending Provider Instructions: Mr. Falk, You were recently hospitalized following blood in your urine. You underwent a cystoscopy and had a clot removed. Please see recommendations below regarding your discharge. 1. Please take Bactrim twice daily for the next 3 days. Your first dose will be this evening. Please take with food to avoid GI upset. 2. Please follow up with urology - they will be in contact with you. 3. Please obtain lab work in 1 week to recheck your blood counts. 4. Please hold your Plavix until seen by your PCP. The remainder of your medications you can resume. Please follow up with your PCP within 1-2 weeks of discharge. If you develop blood in urine, dizziness, weakness, shortness of breath, chest pain please report to the ER for further care. Sincerely, Linda Ervin PA-C Pending Studies at Discharge: No Stand-Alone Forms: My [employer], Smoking Cessation Medications and DC Order Prescriptions: New sulfamethoxazole-trimethoprim [Bactrim DS] 800-160 mg tablet 1 tab PO BID Qty: 6 0RF Continued mirtazapine 45 mg tablet 45 mg PO HS Rx Instructions: ordered by Dr. Mckeon venlafaxine 150 mg capsule,extended release 24hr 150 mg PO HS Rx Instructions: Ordered by Dr. Mckeon albuterol sulfate 90 mcg/actuation HFA aerosol inhaler 2 puff INHALATION Q4H PRN (Reason: Shortness Of Breath) Qty: 18 11RF Rx Instructions: Not on list from pharmacy olanzapine 2.5 mg tablet 2.5 mg PO QPM Qty: 20 0RF Rx Instructions: temp increase dose till see Dr Mckeon albuterol sulfate 2.5 mg /3 mL (0.083 %) solution for nebulization See Rx Instructions .ROUTE .COMPLEX Qty: 180 6RF Dose Instruction: INHALE 1 VIAL VIA NEBULIZER FOUR TIMES A DAY NEEDED FOR SHORTNESS OF BREATH OR WHEEZING Rx Instructions: INHALE 1 VIAL VIA NEBULIZER FOUR TIMES A DAY NEEDED FOR SHORTNESS OF BREATH OR WHEEZING metoprolol succinate 50 mg tablet extended release 24 hr 50 mg PO BIDM Qty: 60 11RF Rx Instructions: 50 mg PO TWICE A DAY IN A.M. AND SUPPER pantoprazole 20 mg tablet,delayed release (DR/EC) 20 mg PO BIDM Qty: 60 11RF Rx Instructions: 20 mg PO TWICE DAILY ONCE IN A.M. AND ONCE AT SUPPER; ferrous sulfate 325 mg (65 mg iron) tablet 325 mg PO DAILY@1200 Qty: 30 11RF Rx Instructions: 325 mg PO AT NOON levothyroxine [Tirosint] 125 mcg capsule 125 mcg PO QAM Qty: 30 11RF Rx Instructions: brand necessary multivitamin [Daily Multi-Vitamin] Tablet 1 tab PO QAM Qty: 30 11RF tamsulosin [Flomax] 0.4 mg capsule 0.4 mg PO QPM Qty: 90 3RF cholecalciferol (vitamin D3) 125 mcg (5,000 unit) capsule 125 mcg PO DAILY@1200 Qty: 30 11RF Rx Instructions: 125 mcg PO AT NOON insulin glargine [Lantus Solostar U-100 Insulin] 100 unit/mL (3 mL) insulin pen See Rx Instructions SQ QAM Qty: 60 2RF Rx Instructions: 45 units subcut QAM; slowly titrate up to 60 units QD; TDD 60 units atorvastatin 40 mg tablet 40 mg PO HS Qty: 30 11RF codeine-guaifenesin 10-100 mg/5 mL liquid 5 ml PO Q6H PRN (Reason: For Cough) Qty: 473 0RF Rx Instructions: 5 ML every 6HR as needed for coughing Trelegy Ellipta 100-62.5-25 mcg blister with device 1 inh inhalation DAILY Qty: 28 11RF insulin aspart U-100 [Novolog FlexPen U-100 Insulin] 100 unit/mL (3 mL) insulin pen 20 unit SQ TID Qty: 30 5RF Rx Instructions: Takes usually 8-12 units per meal with sliding scale. Debrox 6.5 % drops 5 drp otic (ear) BID 4 Days Qty: 15 0RF Rx Instructions: on hold at pharmacy ondansetron 4 mg tablet,disintegrating 4 mg PO Q8H PRN (Reason: nausea and vomiting) Qty: 30 3RF Rx Instructions: Not on list from pharmacy pt d/c phenergan lactobacillus combination no.8 3 billion cell capsule 3,000 mmu cells PO UD Rx Instructions: 3,000 mmu cells po hs. Not on list from pharmacy administer with a meal Held clopidogrel [Plavix] 75 mg tablet 75 mg PO HS Qty: 30 11RF Hold Instructions: Resume on 08/01/24. Until seen by PCP No Action (DME) pen needle, diabetic [BD Ultra-Fine Miranda Pen Needle] 32 gauge x 5/32" needle See Dose Instructions .ROUTE .MEDSUPPLY Qty: 500 3RF Rx Instructions: use up to 5 a day to administer insulin (DME) OneTouch Verio test strips Strip See Rx Instructions .ROUTE .MEDSUPPLY Qty: 500 3RF Rx Instructions: test BS 5 times a day (DME) nebulizer and tubing See Rx Instructions .Route .MEDSUPPLY Qty: 1 0RF Rx Instructions: use 2-3 times a day. PLEASE INSTRUCT ON USE. Use- 99 yrs (DME) nebulizer accessories Kit See Rx Instructions .Route Qty: 1 0RF Rx Instructions: Use 2-3 times a day Dx:J44.9 Use=99 years Discharge Orders: Discharge Order (Routine); Ordered 07/18/24 Ordered By: Linda Ervin Admission Data Admit Date/Time: 07/17/24 08:31 Attending Provider: Placido Roche Admit Provider: Wallace Richter Primary Care Provider: Maribell Worrell Other Providers: Wallace Richter; Brandon Quijano Hospital Stay Data Consultations 07/15/24 17:02 ED Decision to Admit Stat 07/15/24 17:42 Consult Urology Routine Procedures Performed Operation Date: 07/17/24 07:00 Actual Procedures p Cystoscopy with Clot Evacuation, Fulguration - Jed Malone MD Diagnostic Imagining Performed 07/16/24 12:36 US Renal Bladder [US renal/blad retro comp] Routine Pending Results Patient Have Any Pending Studies at Discharge: No Discharge Instructions Given to Patient (Per Discharging Provider) Mr. Falk, You were recently hospitalized following blood in your urine. You underwent a cystoscopy and had a clot removed. Please see recommendations below regarding your discharge. 1. Please take Bactrim twice daily for the next 3 days. Your first dose will be this evening. Please take with food to avoid GI upset. 2. Please follow up with urology - they will be in contact with you. 3. Please obtain lab work in 1 week to recheck your blood counts. 4. Please hold your Plavix until seen by your PCP. The remainder of your medications you can resume. Please follow up with your PCP within 1-2 weeks of discharge. If you develop blood in urine, dizziness, weakness, shortness of breath, chest pain please report to the ER for further care. Sincerely, Linda Ervin PA-C Total Time Total Time Spent Total Time Spent (In Minutes): 42 Total Time Includes: Examination of the Patient, Discharge Planning, Medication Reconciliation and Communication With Other Providers Coding Level of Care Code 18902 INP/OBS DISCH >30 MIN Diagnoses Gross hematuria R31.0 Hematuria type: gross Malignant neoplasm of urinary bladder, unspecified site C67.9 Bladder location: unspecified site Uncontrolled type 2 diabetes mellitus with hyperglycemia, with long-term current use of insulin E11.65; Z79.4
[2024-07-18 11:38] VITALS: BP 134/69; PULSE 89; RESP 18; O2SAT 96
--- NOTE | 2024-07-18 14:50 | Pharmacy Report ---
Pharmacy Glycemic Short Note 2 - Date of Service July 18, 2024 - Glycemic Short BSG Results (Last 24 hours): 07/17/24 07/17/24 07/18/24 16:30 20:02 06:53 Glucose 140 H POC Glucose 202 H 194 H 07/18/24 07/18/24 07:48 11:53 Glucose POC Glucose 144 H 252 H OUTPATIENT ANTIDIABETIC REGIMEN: * Lantus 45 units SQ daily * Novolog 8-12 units SQ AC * HbA1C: 10.4% ASSESSMENT: 07/18: * Mr Falk received 52 units of insulin yesterday, 32 of which were basal. * BSGs have been trending up throughout the day, so Novolog parameters were adjusted to provide additional prandial coverage. * Pharmacy will continue to follow and adjust regimen as indicated. 07/16: * Pt is an 84 YOM admitted with hematuria. History of DM2 on insulin therapy at home. Pharmacy consulted to assist with inpatient glycemic management. * BSGs [phone]/dl since admission. Received a 5 units IV insulin bolus last night + Novolog SQ correction (unclear of dose). * Ordered a diet, other stressors stable. * Begin Lantus qAM slightly reduced from home regimen (titrate as appropriate). Novolog ACHS moderate stress scale. PLAN FOR INPATIENT GLYCEMIC CONTROL: * Hold outpatient oral diabetes medications * Basal insulin * Lantus 32 units SQ daily * Bolus insulin * NovoLog per scale ACHS or Q6hrs while NPO * Goal Range: Low 110 mg/dL - High 140 mg/dL * Correction Factor: 30 mg/dL/unit * Nutritional / Prandial insulin per carb ratio of 1 unit per 9 grams CHO consumed
== END 2024-07-18 14:50 | disposition home or self-care (01) | DRG 921 ==
LOC: 3W 14:05 → ED 14:05 → SUATTDRO 17:48 → 3W 19:51
DX: E03.9 Hypothyroidism, unspecified; N40.1 Benign prostatic hyperplasia with lower urinary tract symptoms; Z88.5 Allergy status to narcotic agent; E11.65 Type 2 diabetes mellitus with hyperglycemia; Z87.891 Personal history of nicotine dependence; C67.9 Malignant neoplasm of bladder, unspecified; K21.9 Gastro-esophageal reflux disease without esophagitis; Z88.1 Allergy status to other antibiotic agents; Y83.8 Other surgical procedures as the cause of abnormal reaction of the patient, or of later complication, without mention of misadventure at the time of the procedure; R31.0 Gross hematuria; Z66 Do not resuscitate; N99.820 Postprocedural hemorrhage of a genitourinary system organ or structure following a genitourinary system procedure; Z79.02 Long term (current) use of antithrombotics/antiplatelets; Z79.4 Long term (current) use of insulin; I10 Essential (primary) hypertension; Z83.3 Family history of diabetes mellitus; J44.9 Chronic obstructive pulmonary disease, unspecified; Z98.890 Other specified postprocedural states; Y92.019 Unspecified place in single-family (private) house as the place of occurrence of the external cause; R32 Unspecified urinary incontinence

== ENCOUNTER 2024-11-16 14:04 | Observation (INO) ==
[2024-11-16 14:51] LABS: Basophils # (auto) 0.03 K/uL (0.00-0.20); Basophils % (auto) 0.3 %; Eosinophils # (auto) 0.08 K/uL (0.00-0.50); Eosinophils % (auto) 0.9 %; Hematocrit (blood only) 34.2 % (42.0-52.0); Hemoglobin 11.6 g/dl (14.0-18.0); Immature Granulocytes # (auto) 0.05 K/uL (0.01-0.20); Immature Granulocytes % (auto) 0.6 %; Lymphocytes # (auto) 0.85 K/uL (1.20-3.40); Lymphocytes % (auto) 9.5 %; Mean Corpuscular Hemoglobin 28.9 pg (25.0-34.0); Mean Corpuscular Hgb Conc 33.9 g/dL (32.0-36.0); Mean Corpuscular Volume 85.1 fL (80.0-100.0); Mean Platelet Volume 9.3 fL (9.4-12.4); Monocytes # (auto) 1.38 K/uL (0.11-0.59); Monocytes % (auto) 15.5 %; Neutrophils # (auto) 6.54 K/uL (1.40-6.50); Neutrophils % (auto) 73.2 %; Platelet Count 322 K/uL (130-400); RDW Coefficient of Variation 14.2 % (11.5-14.5); RDW Standard Deviation 43.8 fL (36.4-46.3); Red Blood Count 4.02 M/uL (4.70-6.10); White Blood Count 8.93 K/ul (4.8-10.8)
--- NOTE | 2024-11-16 15:02 | Emergency Department Note ---
Impression & Plan Pneumonia, KEN (acute kidney injury), Dehydration, Elevated troponin ED Provider Note NAME: CARA VERA AGE: 84 SEX: M : 1940 ARRIVES VIA: Walk-In INFORMANT: Patient ED PROVIDER(S): Merrick Adkins MD CHIEF COMPLAINT: Weakness, confusion PLAN: Disposition: Admit MEDICAL DECISION MAKING: The patient is a pleasant 84-year-old gentleman with a past medical history of COPD, diastolic heart failure, hypertension, hyperlipidemia, hypothyroidism, KENTON, diabetes who presents to the emergency department via walk-in accompanied by his son for evaluation of worsening generalized weakness over the past couple of days in the setting of recent treatment for pneumonia in September and then with diagnosis of human metapneumovirus with COPD flare and beginning of October presents emerged department via walk-in accompanied by his son for evaluation of worsening generalized weakness over the past couple of days where he had even had a controlled fall to the ground to his hands and knees and had to drag himself across the floor to get up. The patient admits that he has had poor appetite and is not eating or drinking much. He admits that he may be more confused than usual. On evaluation the patient is fatigued appearing but no distress, afebrile stable vital signs. He appears clinically dry. Lungs are clear with intermittent underlying wheeze. Abdomen is nontender. He has no focal neurologic deficits. EKG without overt acute ischemia. CXR chest x-ray with persistence of reticular nodular opacities consistent with infectious or inflammatory bronchiolitis initially characterized on visualized lower lung boyd on CT of the abdomen/pelvis. CT of the abdomen/pelvis demonstrates moderate amount of stool within the colon without diverticulitis. Increasing nodular infiltrates in the lower lung boyd is described. WBC within normal limits with neutrophilia but no left shift. H/H 11.6/34.2, decreased but approximate 2 prior values. Chemistry without metabolic acidosis. Creatinine is mildly above normal at 1.4 with BUN of 29. AST is mildly elevated at 146, nonspecific and LFTs otherwise unremarkable. Procalcitonin is elevated at 1.8 suggestive of bacterial infection/pneumonia. TSH within normal limits. HS troponin 60, nonspecific. Respiratory BioFire was negative. Given the patient's elevated procalcitonin with persistence of infiltrates on imaging empiric ceftriaxone and doxycycline were ordered. The patient did have significantly increased weakness from his baseline and nearly fell to the ground when walking to the bathroom with his RN. Thus, patient was referred to hospital service for admission and further management. Case was discussed with CANDICE Aviles PAC, with JONES Acosta hospitalist who will evaluate the patient for admission. Further management per admitting team. Triage Nursing notes reviewed and agree them. Prior/external medical records reviewed Vital Signs: reviewed Differential diagnosis: Infection, dehydration, metabolic abnormality, hypo/hyperglycemia, electrolyte disturbance, anemia, hypoxia, cardiac sources, intracerebral event, toxicologic, neurologic, as well as other pathologies. ER treatment provided: See below. Diagnostics interpreted by me: ECG: Normal sinus rhythm, 90 bpm, no ectopy, no overt ST ovation or depression, QTc 455, QRS 74. Cardiac Monitoring: An order for continuous cardiac monitoring was placed and demonstrated Normal sinus rhythm, 90 bpm, no ectopy. Laboratory studies: See below Imaging studies: See below Consultation(s): CANDICE Aviles PAC, with CANDICE Acosta hospitalist HPI: The patient is a pleasant 84-year-old gentleman with a past medical history of COPD, diastolic heart failure, hypertension, hyperlipidemia, hypothyroidism, KENTON, diabetes who presents to the emergency department via walk-in accompanied by his son for evaluation of worsening generalized weakness over the past couple of days in the setting of recent treatment for pneumonia in September and then with diagnosis of human metapneumovirus with COPD flare and beginning of October presents emerged department via walk-in accompanied by his son for evaluation of worsening generalized weakness over the past couple of days where he had even had a controlled fall to the ground to his hands and knees and had to drag himself across the floor to get up. The patient admits that he has had poor appetite and is not eating or drinking much. He admits that he may be more confused than usual. ROS: See above HPI for pertinent positives & negatives. A total of 10 systems reviewed and were otherwise negative. VITALS:See Below PHYSICAL EXAMINATION: GENERAL: Awake, alert, fatigued-appearing, in no distress HENT: Normocephalic, atraumatic. Oropharynx with dry mucous membranes and otherwise unremarkable. EYES: Normal conjunctiva. Sclera non-icteric. EOMI. No nystamgus. PEARRL. NECK: Supple. No nuchal rigidity. FROM. No JVD. RESPIRATORY: Intermittent wheeze and otherwise clear to auscultation. CARDIAC: Regular rate, normal rhythm. Extremities warm and well perfused. Pulses equal. ABDOMEN: Soft, non-distended. No tenderness to palpation. No rebound or guarding. No masses. MUSCULOSKELETAL: Chest examination reveals no tenderness. The back is symmetrical on inspection without obvious abnormality. There is no CVA tenderness to palpation. No joint edema. LOWER EXTREMITIES: Calves are equal size bilaterally and non-tender. No edema. No discoloration. NEURO: No focal sensory or motor deficits noted. Generalized weakness with 4/5 strength and SILT x 4 extremities. SKIN: No rash or jaundice noted. Merrick Adkins MD Past Med/Surg History Problem List (Updated 11/16/24 @ 23:08 by Merrick Adkins MD) Elevated troponin (Acute) Dehydration (Acute) KEN (acute kidney injury) (Acute) Pneumonia (Acute) KEN (acute kidney injury) Ambulatory dysfunction Pneumonia Generalized weakness Hyponatremia Altered mental status Acute URI of multiple sites Uncontrolled type 2 diabetes mellitus with hyperglycemia, with long-term current use of insulin Elevated troponin I level (Acute) Hypertension Bladder cancer Hematuria (Acute) Spastic bladder Diastolic dysfunction COPD (chronic obstructive pulmonary disease) (Acute) Depression with anxiety (Chronic) Laryngopharyngeal reflux Low ferritin Vitamin B12 deficiency (dietary) anemia Diabetic peripheral neuropathy (Acute) Very mild Dyslipidemia (Chronic) GERD without esophagitis (Chronic) Hypothyroidism (Chronic) Insomnia (Acute) Iron deficiency anemia (Acute) Pulmonary nodules (Acute) KENTON (mycobacterium avium-intracellulare) infection Has been evaluated by ID (started on triple ABX therapy fall 2018), following with pulmonology. Previously had a severe chronic cough but now feels this has mostly resolved on medications. 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 Medical History SOB (shortness of breath) Dyspnea Troponin level elevated On anticoagulant therapy plavix daily Gastroparesis Hypoglycemia Intractable abdominal pain Lactic acidosis Gross hematuria hx of CVA (cerebral vascular accident) 03/2017. Continues on Plavix. Afib Single episode 09/2017 in setting of acute illness. No known reoccurance. Poor historian Pt reports some issues with recall/memory. Nausea Chronic, intermittent. History of stroke Versus TIA, history is unclear, but pt continues on Clopidogrel. Irritable bowel syndrome Depression Cancer H/O BLADDER CA/TURBT- NO CHEMO OR RADIATION Chronic obstructive pulmonary disease Asthma inhaler daily/prn, nebulizer prn Surgical History History of cystoscopy 12/03/20 @ [facility] History of esophagogastroduodenoscopy (EGD) History of cataract surgery left and right History of colonoscopy (~2011) Diverticulosis History of tonsillectomy History of bladder surgery TURBT= 11/01/17= [facility] 2, MAC 3.0, ETT 8.0 AT [facility] H/O lumbar discectomy Family History Mother Family history of diabetes mellitus Myocardial infarction Father Myocardial infarction Other No family history of bleeding disorder Denies family history of Ovarian cancer Prostate cancer Breast cancer Colorectal cancer Social History Smoking Status: Never smoker Tobacco Type: Cigarettes Age Started Using Tobacco: 16; Age Quit Using Tobacco: 44; packs per day: 1; Second Hand Exposure: No; Do You Dip or Chew Tobacco: No; Hx Alcohol Use: No Hx Substance Use: No Preferred Language: Stateless Communication Ability: Effective Visual Impairment: No Limitations Hearing Ability: Normal A/C Tech Required: No Beliefs That Will Affect Care: None marital status: / Current Living Situation: Alone Current Living Situation Comment: Home alone, Son checks on patient current occupational status: retired How many Children do You have: 2 Feels Safe at Home: Yes Childhood Exposure to Second-Hand Smoke: No Diet: diabetic and regular caffeine: Yes during the past year weight has: remained stable Dental Care, Regularly: Yes Physical Activity Frequency: Does not Exercise Seatbelt Use: always Sunscreen Use: No Do you think of yourself as: straight/heterosexual Gender Identity: Male Assistive Devices: Walker Allergies Allergies Allergy/AdvReac Type Severity Reaction Status Date / Time doxycycline AdvReac Intermediate nausea Verified 11/16/24 18:24 levofloxacin AdvReac Mild fidgety Verified 11/16/24 18:24 and anxiety oxycodone AdvReac Mild NAUSEA AND Verified 11/16/24 18:24 VOMITING Home Meds Home Medications Medication Instructions Recorded Confirmed mirtazapine 45 mg tablet 45 mg PO HS 03/24/21 11/16/24 venlafaxine 150 mg 150 mg PO HS 03/24/21 11/16/24 capsule,extended release 24 hr lactobacillus combination no.8 3 3,000 mmu cells PO UD 01/28/23 11/16/24 billion cell capsule Previous Rx's Medication Instructions Recorded nebulizer accessories #1 ea 12/08/21 nebulizer and tubing #1 ea 12/08/21 olanzapine 2.5 mg tablet 2.5 mg PO QPM #20 tabs 01/18/23 pen needle, diabetic 32 gauge x #500 ea 07/11/23" (BD Ultra-Fine Miranda Pen Needle) ondansetron 4 mg disintegrating 4 mg PO Q8H PRN nausea and 09/27/23 tablet vomiting #30 tabs carbamide peroxide 6.5 % ear drops 5 drp otic (ear) BID 4 days #15 mL 11/16/23 (Debrox) fluticasone fur. 100 mcg-umeclid 1 inh inhalation DAILY #28 ea 11/24/23 62.5 mcg-vilant 25 mcg inhalat.powder (Trelegy Ellipta) Tirosint 125 mcg capsule 125 mcg PO QAM #30 caps 01/24/24 (levothyroxine) ferrous sulfate 325 mg (65 mg 325 mg PO DAILY@1200 #30 tabs 01/24/24 iron) tablet multivitamin (Daily Multi-Vitamin 1 tab PO QAM #30 tabs 03/07/24 tablet) cholecalciferol (vitamin D3) 125 125 mcg PO DAILY@1200 #30 caps 03/20/24 mcg (5,000 unit) capsule tamsulosin 0.4 mg capsule (Flomax) 0.4 mg PO QPM #90 caps 03/20/24 blood sugar diagnostic (OneTouch #500 ea 05/09/24 Verio test strips) atorvastatin 40 mg tablet 40 mg PO HS #30 tabs 05/15/24 aspirin 81 mg tablet,delayed 81 mg PO DAILY #30 tabs 08/06/24 release (Adult Low Dose Aspirin) metoprolol succinate 50 mg 50 mg PO BIDM #60 tabs 09/14/24 tablet,extended release 24 hr albuterol sulfate 2.5 mg/3 mL See Rx Instructions .Route 10/04/24 (0.083 %) solution for nebulization .COMPLEX #180 mL albuterol sulfate 90 mcg/actuation See Rx Instructions .Route 10/05/24 aerosol inhaler (Ventolin HFA) .COMPLEX #18 grams prednisone 10 mg tablet 40 mg (4 x 10 mg) PO DAILY 7 days 10/19/24 #28 tabs pantoprazole 20 mg tablet,delayed 20 mg PO BIDM #180 tabs 10/26/24 release benzonatate 200 mg capsule 200 mg PO TID PRN cough #30 caps 10/30/24 prednisone 20 mg tablet 20 mg PO DAILY #4 tabs 10/30/24 codeine 10 mg-guaifenesin 100 mg/5 5 ml PO Q6H PRN For Cough #473 mL 11/05/24 mL oral liquid Novolog FlexPen U-100 Insulin 100 20 unit (0.2 mL) subcut TID #30 mL 11/09/24 unit/mL (3 mL) subcutaneous (insulin aspart U-100) insulin glargine 100 unit/mL (3 See Rx Instructions subcut QAM #60 11/13/24 mL) subcutaneous pen (Lantus mL Solostar U-100 Insulin) Results & Data (ED) Vital Signs Vital Signs - 24 hr 11/16/24 14:07 11/16/24 15:14 11/16/24 16:03 Temperature 36.2 C L Temperature Source Temporal Artery Scan Pulse Rate 94 H 75 Pulse Rate [Apical] 79 Respiratory Rate 20 18 Respiratory Effort / Characteristics Non-Labored Spontaneous Respiratory Depth Normal Respiratory Pattern Regular Blood Pressure 96/57 L Blood Pressure [Right Arm] 111/62 Blood Pressure Mean 70 Blood Pressure Mean [Right Arm] 78 Pulse Oximetry 95 94 Oxygen Delivery Method Room Air Sepsis Recent Fever Within 48 Hours No Sepsis New/Unexplained Change in Mental Status N/A Sepsis Action Taken by Nursing No Action Required 11/16/24 17:05 11/16/24 18:00 11/16/24 19:00 Temperature Temperature Source Pulse Rate Pulse Rate [Apical] 75 77 76 Respiratory Rate 18 18 18 Respiratory Effort / Characteristics Non-Labored Spontaneous Non-Labored Spontaneous Respiratory Depth Normal Normal Respiratory Pattern Regular Regular Blood Pressure Blood Pressure [Right Arm] 104/62 138/84 129/70 Blood Pressure Mean Blood Pressure Mean [Right Arm] 76 102 89 Pulse Oximetry 92 96 99 Oxygen Delivery Method Room Air Room Air Room Air Sepsis Recent Fever Within 48 Hours Sepsis New/Unexplained Change in Mental Status Sepsis Action Taken by Nursing 11/16/24 20:00 Temperature Temperature Source Pulse Rate Pulse Rate [Apical] 81 Respiratory Rate 16 Respiratory Effort / Characteristics Respiratory Depth Respiratory Pattern Blood Pressure Blood Pressure [Right Arm] 146/83 H Blood Pressure Mean Blood Pressure Mean [Right Arm] 104 Pulse Oximetry 95 Oxygen Delivery Method Room Air Sepsis Recent Fever Within 48 Hours Sepsis New/Unexplained Change in Mental Status Sepsis Action Taken by Nursing Laboratory Data Attestation: I reviewed the patient's lab results. 11/16/24 14:34 11/16/24 14:34 Lab Results 11/16/24 11/16/24 11/16/24 Range/Units 14:34 17:28 19:48 WBC 8.93 (4.8-10.8) K/ul RBC 4.02 L (4.70-6.10) M/uL Hgb 11.6 L (14.0-18.0) g/dl Hct 34.2 L (42.0-52.0) % MCV 85.1 (80.0-100.0) fL MCH 28.9 (25.0-34.0) pg MCHC 33.9 (32.0-36.0) g/dL RDW Std Deviation 43.8 (36.4-46.3) fL RDW Coeff of Yulissa 14.2 (11.5-14.5) % Plt Count 322 (130-400) K/uL MPV 9.3 L (9.4-12.4) fL Immature Gran % (Auto) 0.6 % Neut % (Auto) 73.2 % Lymph % (Auto) 9.5 % Andrew % (Auto) 15.5 % Eos % (Auto) 0.9 % Baso % (Auto) 0.3 % Neut # (Auto) 6.54 H (1.40-6.50) K/uL Lymph # (Auto) 0.85 L (1.20-3.40) K/uL Andrew # (Auto) 1.38 H (0.11-0.59) K/uL Eos # (Auto) 0.08 (0.00-0.50) K/uL Baso # (Auto) 0.03 (0.00-0.20) K/uL Immature Gran # (Auto) 0.05 (0.01-0.20) K/uL Sodium 130 L (136-145) mmol/L Potassium 4.3 (3.5-5.1) mmol/L Chloride 94 L (98-107) mmol/L Carbon Dioxide 26 (21-32) mmol/L Anion Gap 10 (3-11) BUN 29 H (6-23) mg/dl Creatinine 1.41 H (0.6-1.4) mg/dl Est Cr Clr Drug Dosing Not Reportable eGFR 49.45 BUN/Creatinine Ratio 20.6 H (10-20) Glucose 256 H (70-99(Fasting)) mg/dl POC Glucose (70-99) mg/dl Calcium 9.7 (8.6-10.3) mg/dl Phosphorus 3.6 (2.5-4.9) mg/dl Magnesium 1.9 (1.7-2.4) mg/dl Total Bilirubin 0.9 (0.2-1.0) mg/dl AST 146 H (13-39) U/L ALT 47 (7-52) U/L Alkaline Phosphatase 117 H (34-104) U/L Troponin I High Sens 60.2 H* 45.7 H D (0-20) pg/ml Total Protein 7.3 (6.0-8.3) gm/dl Albumin 3.7 (3.4-5.0) gm/dl Globulin 3.6 (2.5-4.0) gm/dl Albumin/Globulin Ratio 1.0 (0.9-2) Procalcitonin 1.88 H (0-0.5) ng/ml TSH 0.786 (0.300-4.500) uIu/ml Adenovirus (PCR) Not Detected (NotDetected) B. pertussis DNA (PCR) Not Detected (NotDetected) B.parapertussis DNA PCR Not Detected (NotDetected) C. pneumoniae DNA (PCR) Not Detected (NotDetected) Coronavirus OC43 (PCR) Not Detected (NotDetected) Coronavirus HKU1 (PCR) Not Detected (NotDetected) Coronavirus 229E (PCR) Not Detected (NotDetected) SARS-CoV-2 (PCR) Not Detected (NotDetected) Coronavirus NL63 (PCR) Not Detected (NotDetected) Human Metapneumovir PCR Not Detected (NotDetected) Influenza Type A (PCR) Not Detected (NotDetected) Influenza Type B (PCR) Not Detected (NotDetected) M. pneumoniae (PCR) Not Detected (NotDetected) Parainfluenza 1 (PCR) Not Detected (NotDetected) Parainfluenza 2 (PCR) Not Detected (NotDetected) Parainfluenza 3 (PCR) Not Detected (NotDetected) Parainfluenza 4 (PCR) Not Detected (NotDetected) RSV (PCR) Not Detected (NotDetected) Entero/Rhino (PCR) Not Detected (NotDetected) 11/16/24 Range/Units 19:51 WBC (4.8-10.8) K/ul RBC (4.70-6.10) M/uL Hgb (14.0-18.0) g/dl Hct (42.0-52.0) % MCV (80.0-100.0) fL MCH (25.0-34.0) pg MCHC (32.0-36.0) g/dL RDW Std Deviation (36.4-46.3) fL RDW Coeff of Yulissa (11.5-14.5) % Plt Count (130-400) K/uL MPV (9.4-12.4) fL Immature Gran % (Auto) % Neut % (Auto) % Lymph % (Auto) % Andrew % (Auto) % Eos % (Auto) % Baso % (Auto) % Neut # (Auto) (1.40-6.50) K/uL Lymph # (Auto) (1.20-3.40) K/uL Andrew # (Auto) (0.11-0.59) K/uL Eos # (Auto) (0.00-0.50) K/uL Baso # (Auto) (0.00-0.20) K/uL Immature Gran # (Auto) (0.01-0.20) K/uL Sodium (136-145) mmol/L Potassium (3.5-5.1) mmol/L Chloride (98-107) mmol/L Carbon Dioxide (21-32) mmol/L Anion Gap (3-11) BUN (6-23) mg/dl Creatinine (0.6-1.4) mg/dl Est Cr Clr Drug Dosing eGFR BUN/Creatinine Ratio (10-20) Glucose (70-99(Fasting)) mg/dl POC Glucose 143 H (70-99) mg/dl Calcium (8.6-10.3) mg/dl Phosphorus (2.5-4.9) mg/dl Magnesium (1.7-2.4) mg/dl Total Bilirubin (0.2-1.0) mg/dl AST (13-39) U/L ALT (7-52) U/L Alkaline Phosphatase (34-104) U/L Troponin I High Sens (0-20) pg/ml Total Protein (6.0-8.3) gm/dl Albumin (3.4-5.0) gm/dl Globulin (2.5-4.0) gm/dl Albumin/Globulin Ratio (0.9-2) Procalcitonin (0-0.5) ng/ml TSH (0.300-4.500) uIu/ml Adenovirus (PCR) (NotDetected) B. pertussis DNA (PCR) (NotDetected) B.parapertussis DNA PCR (NotDetected) C. pneumoniae DNA (PCR) (NotDetected) Coronavirus OC43 (PCR) (NotDetected) Coronavirus HKU1 (PCR) (NotDetected) Coronavirus 229E (PCR) (NotDetected) SARS-CoV-2 (PCR) (NotDetected) Coronavirus NL63 (PCR) (NotDetected) Human Metapneumovir PCR (NotDetected) Influenza Type A (PCR) (NotDetected) Influenza Type B (PCR) (NotDetected) M. pneumoniae (PCR) (NotDetected) Parainfluenza 1 (PCR) (NotDetected) Parainfluenza 2 (PCR) (NotDetected) Parainfluenza 3 (PCR) (NotDetected) Parainfluenza 4 (PCR) (NotDetected) RSV (PCR) (NotDetected) Entero/Rhino (PCR) (NotDetected) Administered Medications Sodium Chloride (Nss) 1,000 mls @ 80 mls/hr IV .[id number] NICKI Stop: 11/17/24 09:44 Last Admin: 11/16/24 21:45 Dose: 80 mls/hr Documented By: PRATIK Insulin Aspart (Insulin Aspart Per Unit Charge) 0 units SC ACHS NICKI Stop: 12/16/24 20:59 Last Admin: 11/16/24 20:33 Dose: 5 units Documented By: AN Co-signed By: GROVER Discontinued Medications Sodium Chloride (Nss) 1,000 mls @ 999 mls/hr IV .[id number] ONE Stop: 11/16/24 16:01 Last Infusion: 11/16/24 16:09 Dose: Infused Documented By: Admin: 11/16/24 15:08 Dose: 999 mls/hr Documented By: LACI Ceftriaxone Sodium (Rocephin) 2,000 mg in 50 mls @ 100 mls/hr IV NOW STA Stop: 11/16/24 16:49 Last Infusion: 11/16/24 18:23 Dose: Infused Documented By: Admin: 11/16/24 17:53 Dose: 100 mls/hr Documented By: LACI Doxycycline Hyclate 100 mg/ (Dextrose) 100 mls @ 50 mls/hr IV NOW STA Stop: 11/16/24 20:11 Last Admin: 11/16/24 20:09 Dose: 50 mls/hr Documented By: PRATIK Miscellaneous (Patient's Height &/Or Weight Needed) 1 each N/A Q2H NICKI Stop: 11/16/24 21:30 Last Admin: 11/16/24 20:23 Dose: Not Given Documented By: Admin: 11/16/24 19:55 Dose: 1 each Documented By: AN Imaging Data Radiologist's Impression: Chest X-Ray 11/16/24 14:13 XR chest 1V portable HISTORY: 84 years-old Male cough COMPARISON: 10/30/2024 TECHNIQUE: AP view the chest FINDINGS: Chronic reticular nodular densities are again seen diffusely. Cardiac silhouette is normal. No pneumothorax, pleural effusion or overt pulmonary edema. Chronic appearing lateral left rib fractures. Bones appear grossly intact. IMPRESSION: No significant change in appearance of the chest with numerous chronic reticulonodular opacities suggestive of an infectious or inflammatory bronchiolitis. ACT 112: Negative or not required by law. The above report was generated using voice recognition software. It may contain grammatical, syntax or spelling errors. Electronically signed by: Boy Griffith M.D. 11/16/2024 3:09 PM Abdomen/Pelvis CT 11/16/24 16:17 EXAM: CT Abdomen and Pelvis Without Intravenous Contrast INDICATION: Weakness and worsening confusion. Unwitnessed fall 2 days ago. Kidney failure. TECHNIQUE: Axial computed tomography images of the abdomen and pelvis without intravenous contrast. Sagittal and coronal reformatted images were created and reviewed. This CT exam was performed using one or more of the following dose reduction techniques: automated exposure control, adjustment of the mA and/or kV according to patient size, and/or use of iterative reconstruction technique. COMPARISON: 09/21/2022 FINDINGS: Limitations: None. Lung bases: There is mild bronchiectasis with worsening tree-in-bud and patchy nodular infiltrates in both lower lungs. Pleural space: No basilar pleural effusion. Heart: No abnormality noted. Mediastinum: No abnormality noted. ABDOMEN: Liver: Lack of intravenous contrast limits detection of some masses. No abnormality noted. Gallbladder and bile ducts: No calcified stones or surrounding fluid. Pancreas: No pancreatic mass, calcification, inflammation or ductal dilation noted. Spleen: No significant abnormality noted. Adrenals: No significant abnormality noted. Kidneys and ureters: Simple left renal cyst/s. No simple cyst follow-up necessary. Right kidney appears normal. No renal stone, hydronephrosis or perinephric fluid. The right kidney appears normal. Stomach and bowel: The stomach is collapsed and not well assessed. There is a moderate amount of formed stool throughout the colon with diffuse diverticulosis. No diverticulitis or obstruction. PELVIS: Appendix: Well seen and appears normal. Bladder: Appears normal for the degree of filling. No stones or inflammation. No large mass. Masses may not be detected in the absence of opacification. Reproductive: No abnormalities noted. ABDOMEN and PELVIS: Intraperitoneal space: No free air. No significant fluid collection. 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 Multilevel lower lumbar laminectomy changes. No acute osseous abnormality. Soft tissues: No significant abnormality noted. Vasculature: Atherosclerotic calcification of the aorta and branches. No aneurysm. Lymph nodes: No pathologically enlarged lymph nodes. IMPRESSION: 1. Moderate amounts of stool in the colon and diffuse diverticulosis. No diverticulitis. 2. Worsening chronic small airway changes with increasing nodular infiltrates and tree-in-bud type opacities most likely inflammatory. ACT 112: Negative or not required by law. Electronically signed by Mariam White 11-16-2024 5:[address] 11/16/24 16:17 EXAM: CT Head Without Intravenous Contrast INDICATION: Unwitnessed fall. Worsening confusion. Weakness. TECHNIQUE: Axial computed tomography images of the head/brain without intravenous contrast. Sagittal and/or coronal reformats are provided. Sagittal and coronal reformatted images were created and reviewed. This CT exam was performed using one or more of the following dose reduction techniques: automated exposure control, adjustment of the mA and/or kV according to patient size, and/or use of iterative reconstruction technique. COMPARISON: 01/05/2021 FINDINGS: Limitations: None. Brain and extra-axial spaces: There is age appropriate cortical atrophy and chronic ischemic periventricular white matter hypodensity. No acute infarct, hemorrhage or mass noted. Bones/joints: No acute changes. Soft tissues: No significant abnormality noted. Vasculature: No acute abnormality noted. Sinuses: No layering fluid in the visualized portions of the paranasal sinuses. Mastoid air cells: No mastoid effusion. Orbits: No significant abnormality noted. IMPRESSION: Cerebral atrophy. No acute changes. ACT 112: Negative or not required by law. Electronically signed by Mariam White 11-16-2024 5:54 PM Discharge Plan Visit Data Chief Complaint: Confusion Stated Complaint: WEAKNESS, DISORIENTED/CONFUSION, FELL, COUGH ED Provider: Merrick Adkins Discharge Problem: Pneumonia, KEN (acute kidney injury), Dehydration, Elevated troponin Patient Disposition: Admitted As Inpatient Discharge Instructions Interventions: ED Discharge Assessment Last Done: 11/16/24 21:50 Discharge Problem: Pneumonia Qualifiers: Pneumonia type: due to unspecified organism Laterality: bilateral Lung location: lower lobe of lung Qualified Code(s): J18.9 - Pneumonia, unspecified organism
[2024-11-16 15:07] LABS: Alanine Aminotransferase 47 U/L (7-52); Albumin Level 3.7 gm/dl (3.4-5.0); Alkaline Phosphatase 117 U/L (34-104); Anion Gap 10 (3-11); Aspartate Aminotransferase 146 U/L (13-39); BUN Creatinine Ratio 20.6 (10-20); Bilirubin,Total 0.9 mg/dl (0.2-1.0); Blood Urea Nitrogen 29 mg/dl (6-23); Calcium 9.7 mg/dl (8.6-10.3); Carbon Dioxide 26 mmol/L (21-32); Chloride 94 mmol/L (98-107); Globulin 3.6 gm/dl (2.5-4.0); Glucose 256 mg/dl (70-99(Fasting)); Potassium 4.3 mmol/L (3.5-5.1); Sodium 130 mmol/L (136-145); Total Protein 7.3 gm/dl (6.0-8.3)
[2024-11-16] MEDS: SODIUM CHLORIDE 0.9% 1,000 ML IV ONE (15:08)
[2024-11-16 15:21] LABS: Magnesium 1.9 mg/dl (1.7-2.4); Phosphorus 3.6 mg/dl (2.5-4.9)
[2024-11-16 15:36] LABS: Thyroid Stimulating Hormone 0.786 uIu/ml (0.300-4.500)
--- NOTE | 2024-11-16 15:36 | XRay Report ---
XR chest 1V portable HISTORY: 84 years-old Male cough COMPARISON: 10/30/2024 TECHNIQUE: AP view the chest FINDINGS: Chronic reticular nodular densities are again seen diffusely. Cardiac silhouette is normal. No pneumo thorax, pleural effusion or overt pulmonary edema. Chronic appearing lateral left rib fractures. Bone s appear grossly intact. IMPRESSION: No significant change in appearance of the chest with numerous chronic reticulonodular op acities suggestive of an infectious or inflammatory bronchiolitis. ACT 112: Negative or not required by law. The above report was generated using voice recognition software. It may contain grammatical, syntax o r spelling errors. Electronically signed by: Boy Griffith M.D. 11/16/2024 3:09 PM
[2024-11-16 15:42] LABS: Adenovirus PCR Not Detected (NotDetected); Bordetella parapertussis PCR Not Detected (NotDetected); Bordetella pertussis PCR Not Detected (NotDetected); Chlamydia pneumoniae PCR Not Detected (NotDetected); Coronavirus 229E PCR Not Detected (NotDetected); Coronavirus CoV-2 (COVID19)PCR Not Detected (NotDetected); Coronavirus HKU1 PCR Not Detected (NotDetected); Coronavirus NL63 PCR Not Detected (NotDetected); Coronavirus OC43PCR Not Detected (NotDetected); Human Metapneumovirus PCR Not Detected (NotDetected); Influenza A PCR Not Detected (NotDetected); Influenza B PCR Not Detected (NotDetected); Mycoplasma pneumoniae PCR Not Detected (NotDetected); Parainfluenza Virus 1 PCR Not Detected (NotDetected); Parainfluenza Virus 2 PCR Not Detected (NotDetected); Parainfluenza Virus 3 PCR Not Detected (NotDetected); Parainfluenza Virus 4 PCR Not Detected (NotDetected); Respiratory Syncytial VirusPCR Not Detected (NotDetected); Rhinovirus/Enterovirus PCR Not Detected (NotDetected)
[2024-11-16] MEDS: cefTRIAXone SODIUM 2,000 MG/50 ML BAG IV STA (17:53)
--- NOTE | 2024-11-16 17:55 | CT Scan Report ---
EXAM: CT Head Without Intravenous Contrast INDICATION: Unwitnessed fall. Worsening confusion. Weakness. TECHNIQUE: Axial computed tomography images of the head/brain without intravenous contrast. Sagittal and/or coronal reformats are provided. Sagittal and coronal reformatted images were created and reviewed. This CT exam was performed using one or more of the following dose reduction techniques: automated exposure control, adjustment of the mA and/or kV according to patient size, and/or use of iterative reconstruction technique. COMPARISON: 01/05/2021 FINDINGS: Limitations: None. Brain and extra-axial spaces: There is age appropriate cortical atrophy and chronic ischemic periventricular white matter hypodensity. No acute infarct, hemorrhage or mass noted. Bones/joints: No acute changes. Soft tissues: No significant abnormality noted. Vasculature: No acute abnormality noted. Sinuses: No layering fluid in the visualized portions of the paranasal sinuses. Mastoid air cells: No mastoid effusion. Orbits: No significant abnormality noted. IMPRESSION: Cerebral atrophy. No acute changes. ACT 112: Negative or not required by law. Electronically signed by Mariam White 11-16-2024 5:54 PM
--- NOTE | 2024-11-16 17:59 | CT Scan Report ---
EXAM: CT Abdomen and Pelvis Without Intravenous Contrast INDICATION: Weakness and worsening confusion. Unwitnessed fall 2 days ago. Kidney failure. TECHNIQUE: Axial computed tomography images of the abdomen and pelvis without intravenous contrast. Sagittal and coronal reformatted images were created and reviewed. This CT exam was performed using one or more of the following dose reduction techniques: automated exposure control, adjustment of the mA and/or kV according to patient size, and/or use of iterative reconstruction technique. COMPARISON: 09/21/2022 FINDINGS: Limitations: None. Lung bases: There is mild bronchiectasis with worsening tree-in-bud and patchy nodular infiltrates in both lower lungs. Pleural space: No basilar pleural effusion. Heart: No abnormality noted. Mediastinum: No abnormality noted. ABDOMEN: Liver: Lack of intravenous contrast limits detection of some masses. No abnormality noted. Gallbladder and bile ducts: No calcified stones or surrounding fluid. Pancreas: No pancreatic mass, calcification, inflammation or ductal dilation noted. Spleen: No significant abnormality noted. Adrenals: No significant abnormality noted. Kidneys and ureters: Simple left renal cyst/s. No simple cyst follow-up necessary. Right kidney appears normal. No renal stone, hydronephrosis or perinephric fluid. The right kidney appears normal. Stomach and bowel: The stomach is collapsed and not well assessed. There is a moderate amount of formed stool throughout the colon with diffuse diverticulosis. No diverticulitis or obstruction. PELVIS: Appendix: Well seen and appears normal. Bladder: Appears normal for the degree of filling. No stones or inflammation. No large mass. Masses may not be detected in the absence of opacification. Reproductive: No abnormalities noted. ABDOMEN and PELVIS: Intraperitoneal space: No free air. No significant fluid collection. 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 Multilevel lower lumbar laminectomy changes. No acute osseous abnormality. Soft tissues: No significant abnormality noted. Vasculature: Atherosclerotic calcification of the aorta and branches. No aneurysm. Lymph nodes: No pathologically enlarged lymph nodes. IMPRESSION: 1. Moderate amounts of stool in the colon and diffuse diverticulosis. No diverticulitis. 2. Worsening chronic small airway changes with increasing nodular infiltrates and tree-in-bud type opacities most likely inflammatory. ACT 112: Negative or not required by law. Electronically signed by Mariam White 11-16-2024 5:58 PM
--- NOTE | 2024-11-16 18:32 | History & Physical Report ---
Date of Service November 16, 2024 Assessment & Plan (1) Pneumonia: Plan: Darrick is a pleasant 84-year-old male with PMH of T2DM, KHUSHBU, vitamin B12 deficiency, dyslipidemia, anxiety, depression, bladder cancer, and hematuria. He presented on 11/16 for increased weakness and disorientation. Patient's son (Jesus) is currently at bedside, and provides most of the history. Son reports that he has been "out of sorts", with increased confusion and leg weakness over the past few days. Patient reportedly had an unwitnessed fall on Tuesday night. Waxing and waning respiratory infections over the past month including: (1) human metapneumovirus, (2) COPD flares, and (3) pneumonia Rx 10/19 - azithromycin course + 7-day prednisone taper Rx 11/01 - prednisone 20 mg x 4 days Patient's son reports this helped him significantly last time While no leukocytosis on admission, patient's procalcitonin is elevated at 1.88 CXR shows infectious versus inflammatory bronchiolitis Rocephin 2000 g IV q24h Azithromycin 500 mg p.o. q24h Will defer doxy due to extreme nausea when taking (2) COPD (chronic obstructive pulmonary disease): Plan: Incentive spirometry, flutter valve Duoneb 3mL Q6R as needed Prednisone 20mg p.o. daily Continue home inhalers (3) Ambulatory dysfunction: Plan: Fall this past week In the ED, patient's legs began to give out ? Generalized weakness secondary to ongoing respiratory infection PT/OT evaluations appreciated Fall precautions (4) KEN (acute kidney injury): Plan: Mild; BUN 29, creatinine 1.41 (baseline around 1.2) Suspect prerenal in setting of dehydration Avoid nephrotoxic agents for possible Continue IVF resuscitation (5) Uncontrolled type 2 diabetes mellitus with hyperglycemia, with long-term current use of insulin: Plan: Last A1c at 10.4% on 07/16/2025 for Glucose around 250 on arrival Lantus BID while inpatient + SSI T2DM diet BSG ACHS Adjust regimen as needed Given both KEN and steroid use, pharmacy glycemic consult appreciated (6) Hyponatremia: Plan: Na 130 on arrival ? Secondary to acute infection Trend BMP (7) Generalized weakness: Plan Disposition: Admit to MedSurg telemetry DNR/DNI T2DM diet VTE PPx: High fall risk; will hold chemical DVT PPx for now; SCDs History of Present Illness Chief Complaint: Confusion, ambulatory dysfunction Primary Care Provider: RONNIE Santana Darrick is a pleasant 84-year-old male with PMH of T2DM, KHUSHBU, vitamin B12 deficiency, dyslipidemia, anxiety, depression, bladder cancer, and hematuria. He presented on 11/16 for increased weakness and disorientation. Patient's son (Jesus) is currently at bedside, and provides most of the history. Son reports that he has been "out of sorts", with increased confusion and leg weakness over the past few days. Patient reportedly had an unwitnessed fall on Tuesday night, while he was traveling from his bathroom back to bed. Patient reports he was not dizzy prior to falling, but instead stumbled on the carpet. No LOC. He is unsure if he hit his head. He does have rug simon on both of his knees from crawling back up into bed. Both patient and patient's son deny any strokelike symptoms such as slurred speech, facial droop, or unilateral deficits. He does have history of a TIA around 8 to 10 years ago. Additional remote history includes waxing and waning of several respiratory diseases over the holidays. For instance, he was told he had human metapneumovirus, and also received treatment for pneumonia (course of azithromycin) and COPD flares (prednisone taper). Patient endorses ongoing dyspnea on exertion; he denies SOB at rest. He continues to have a productive cough (light yellow, creamy colored). No blood in cough. No chest pain or pleuritic chest pain. He denies history of blood clots in his legs or his lungs. Patient denies smoking, tobacco use, recent alcohol use. Patient's vital stable at time of admission. ED course: Ceftriaxone 2000 mg IV NSS 1000 mL IV ROS: Patient endorses productive cough, GOMEZ, confusion, and lower extremity weakness. Patient denies fever, chills, night-sweats, dizziness, lightheadedness, RUTH, stroke-like s/s, neck pain, changes in vision, tinnitus, ear pain, chest pain, pleuritic CP, SOB at rest, hemopytsis, new lower back pain, abdominal pain, N/V/D, or numbness/tingling/pain in the legs. Allergies Allergy/AdvReac Type Severity Reaction Status Date / Time doxycycline AdvReac Intermediate nausea Verified 11/16/24 18:24 levofloxacin AdvReac Mild fidgety Verified 11/16/24 18:24 and anxiety oxycodone AdvReac Mild NAUSEA AND Verified 11/16/24 18:24 VOMITING Home Medications Medication Instructions Recorded Confirmed Type mirtazapine 45 mg tablet 45 mg PO HS 03/24/21 11/16/24 History venlafaxine 150 mg 150 mg PO HS 03/24/21 11/16/24 History capsule,extended release 24 hr nebulizer accessories #1 ea 12/08/21 10/19/24 Rx nebulizer and tubing #1 ea 12/08/21 10/19/24 Rx olanzapine 2.5 mg tablet 2.5 mg PO QPM #20 tabs 01/18/23 11/16/24 Rx lactobacillus combination no.8 3 3,000 mmu cells PO UD 01/28/23 11/16/24 History billion cell capsule pen needle, diabetic 32 gauge x #500 ea 07/11/23 10/19/24 Rx 5/32" (BD Ultra-Fine Miranda Pen Needle) ondansetron 4 mg disintegrating 4 mg PO Q8H PRN nausea and 09/27/23 11/16/24 Rx tablet vomiting #30 tabs carbamide peroxide 6.5 % ear drops 5 drp otic (ear) BID 4 days #15 mL 11/16/23 11/16/24 Rx (Debrox) fluticasone fur. 100 mcg-umeclid 1 inh inhalation DAILY #28 ea 11/24/23 11/16/24 Rx 62.5 mcg-vilant 25 mcg inhalat.powder (Trelegy Ellipta) Tirosint 125 mcg capsule 125 mcg PO QAM #30 caps 01/24/24 11/16/24 Rx (levothyroxine) ferrous sulfate 325 mg (65 mg 325 mg PO DAILY@1200 #30 tabs 01/24/24 11/16/24 Rx iron) tablet multivitamin (Daily Multi-Vitamin 1 tab PO QAM #30 tabs 03/07/24 11/16/24 Rx tablet) cholecalciferol (vitamin D3) 125 125 mcg PO DAILY@1200 #30 caps 03/20/24 11/16/24 Rx mcg (5,000 unit) capsule tamsulosin 0.4 mg capsule (Flomax) 0.4 mg PO QPM #90 caps 03/20/24 11/16/24 Rx blood sugar diagnostic (OneTouch #500 ea 05/09/24 10/19/24 Rx Verio test strips) atorvastatin 40 mg tablet 40 mg PO HS #30 tabs 05/15/24 11/16/24 Rx aspirin 81 mg tablet,delayed 81 mg PO DAILY #30 tabs 08/06/24 11/16/24 Rx release (Adult Low Dose Aspirin) metoprolol succinate 50 mg 50 mg PO BIDM #60 tabs 09/14/24 11/16/24 Rx tablet,extended release 24 hr albuterol sulfate 2.5 mg/3 mL See Rx Instructions .Route 10/04/24 11/16/24 Rx (0.083 %) solution for nebulization .COMPLEX #180 mL albuterol sulfate 90 mcg/actuation See Rx Instructions .Route 10/05/24 11/16/24 Rx aerosol inhaler (Ventolin HFA) .COMPLEX #18 grams prednisone 10 mg tablet 40 mg (4 x 10 mg) PO DAILY 7 days 10/19/24 11/16/24 Rx #28 tabs pantoprazole 20 mg tablet,delayed 20 mg PO BIDM #180 tabs 10/26/24 11/16/24 Rx release benzonatate 200 mg capsule 200 mg PO TID PRN cough #30 caps 10/30/24 11/16/24 Rx prednisone 20 mg tablet 20 mg PO DAILY #4 tabs 10/30/24 11/16/24 Rx codeine 10 mg-guaifenesin 100 mg/5 5 ml PO Q6H PRN For Cough #473 mL 11/05/24 11/16/24 Rx mL oral liquid Novolog FlexPen U-100 Insulin 100 20 unit (0.2 mL) subcut TID #30 mL 11/09/24 11/16/24 Rx unit/mL (3 mL) subcutaneous (insulin aspart U-100) insulin glargine 100 unit/mL (3 See Rx Instructions subcut QAM #60 11/13/24 11/16/24 Rx mL) subcutaneous pen (Lantus mL Solostar U-100 Insulin) Past Med/Surg History Problem List (Updated 11/16/24 @ 19:22 by Jeet Coe PA-C) KEN (acute kidney injury) Ambulatory dysfunction Pneumonia Generalized weakness Hyponatremia Altered mental status Acute URI of multiple sites Uncontrolled type 2 diabetes mellitus with hyperglycemia, with long-term current use of insulin Elevated troponin I level (Acute) Hypertension Bladder cancer Hematuria (Acute) Spastic bladder Diastolic dysfunction COPD (chronic obstructive pulmonary disease) (Acute) Depression with anxiety (Chronic) Laryngopharyngeal reflux Low ferritin Vitamin B12 deficiency (dietary) anemia Diabetic peripheral neuropathy (Acute) Very mild Dyslipidemia (Chronic) GERD without esophagitis (Chronic) Hypothyroidism (Chronic) Insomnia (Acute) Iron deficiency anemia (Acute) Pulmonary nodules (Acute) KENTON (mycobacterium avium-intracellulare) infection Has been evaluated by ID (started on triple ABX therapy fall 2018), following with pulmonology. Previously had a severe chronic cough but now feels this has mostly resolved on medications. 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 Medical History (Updated 11/16/24 @ 19:22 by Jeet Coe PA-C) SOB (shortness of breath) Dyspnea Troponin level elevated On anticoagulant therapy plavix daily Gastroparesis Hypoglycemia Intractable abdominal pain Lactic acidosis Gross hematuria hx of CVA (cerebral vascular accident) 03/2017. Continues on Plavix. Afib Single episode 09/2017 in setting of acute illness. No known reoccurance. Poor historian Pt reports some issues with recall/memory. Nausea Chronic, intermittent. History of stroke Versus TIA, history is unclear, but pt continues on Clopidogrel. Irritable bowel syndrome Depression Cancer H/O BLADDER CA/TURBT- NO CHEMO OR RADIATION Chronic obstructive pulmonary disease Asthma inhaler daily/prn, nebulizer prn Surgical History History of cystoscopy 12/03/20 @ [facility] History of esophagogastroduodenoscopy (EGD) History of cataract surgery left and right History of colonoscopy (~2011) Diverticulosis History of tonsillectomy History of bladder surgery TURBT= 11/01/17= [facility] 2, MAC 3.0, ETT 8.0 AT [facility] H/O lumbar discectomy Family History Mother Family history of diabetes mellitus Myocardial infarction Father Myocardial infarction Other No family history of bleeding disorder Denies family history of Ovarian cancer Prostate cancer Breast cancer Colorectal cancer Social History Smoking Status: Former smoker Tobacco Type: Cigarettes Age Started Using Tobacco: 16; Age Quit Using Tobacco: 44; packs per day: 1; Second Hand Exposure: No; Do You Dip or Chew Tobacco: No; Hx Alcohol Use: No Hx Substance Use: No Preferred Language: Slovenian Communication Ability: Effective Visual Impairment: No Limitations Hearing Ability: Normal Precision Mechanical 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 Maker Required: No Beliefs That Will Affect Care: None marital status: / Current Living Situation: Alone current occupational status: retired How many Children do You have: 2 Feels Safe at Home: Yes Childhood Exposure to Second-Hand Smoke: No Diet: diabetic and regular caffeine: Yes during the past year weight has: remained stable Dental Care, Regularly: Yes Physical Activity Frequency: Does not Exercise Seatbelt Use: always Sunscreen Use: No Do you think of yourself as: straight/heterosexual Gender Identity: Male Assistive Devices: None Review of Systems Review of Systems: See HPI above Physical Exam Physical Exam: General: no acute distress; pleasant affect; son at bedside; non-toxic appearing; well appearing; cooperative; SpO2 99% on RA HEENT: normocephalic, atraumatic; no scleral icterus; PERRLA; vision and hearing intact Neck: supple; no lymphadenopathy; trachea midline Skin: Superficial, erythematous rug simon noted on the knees bilaterally; warm, dry without signs of tenting; no cyanosis CV: chest wall NTP; RRR; S1/S2 normal; no murmurs/rubs/gallops; pulses intact and symmetric at radial, DP, and PT Lungs: no acute respiratory distress; symmetrical chest wall expansion; clear breath sounds across all lung boyd w/o adventitious sounds; no wheezing ABD: Soft, NTP; BS present; no rebound/guarding; no distention MSK: no tics or fasciculations; no edema noted in the LEs b/l, nonerythematous; patient demonstrates 4/5 strength when lifting legs from the bed bilaterally while lying supine Neuro: A&Ox3; normal mood and affect, but sometimes slow to respond to questioning; fluent speech; no facial droop; no focal deficits appreciated; patient reports that sensation is intact and symmetric in the lower EXTR bilaterally Results & Data Results & Data Vital Signs (Past 12 Hours) Vital Signs Temp Pulse Pulse Resp BP BP Pulse Ox 11/16/24 18:00 77 18 138/84 96 11/16/24 17:05 75 18 104/62 92 11/16/24 16:03 75 11/16/24 15:14 79 18 111/62 94 11/16/24 14:07 36.2 C L 94 H 20 96/57 L 95 O2 Del Method 11/16/24 18:00 Room Air 11/16/24 17:05 Room Air 11/16/24 16:03 11/16/24 15:14 Room Air 11/16/24 14:07 Laboratory Results Abnormal lab results 11/16/24 Range/Units 14:34 RBC 4.02 L (4.70-6.10) M/uL Hgb 11.6 L (14.0-18.0) g/dl Hct 34.2 L (42.0-52.0) % MPV 9.3 L (9.4-12.4) fL Neut # (Auto) 6.54 H (1.40-6.50) K/uL Lymph # (Auto) 0.85 L (1.20-3.40) K/uL [place] # (Auto) 1.38 H (0.11-0.59) K/uL Sodium 130 L (136-145) mmol/L Chloride 94 L (98-107) mmol/L BUN 29 H (6-23) mg/dl Creatinine 1.41 H (0.6-1.4) mg/dl BUN/Creatinine Ratio 20.6 H (10-20) Glucose 256 H (70-99(Fasting)) mg/dl AST 146 H (13-39) U/L Alkaline Phosphatase 117 H (34-104) U/L Procalcitonin 1.88 H (0-0.5) ng/ml Diagnostic Findings Chest X-Ray 11/16/24 14:13 XR chest 1V portable HISTORY: 84 years-old Male cough COMPARISON: 10/30/2024 TECHNIQUE: AP view the chest FINDINGS: Chronic reticular nodular densities are again seen diffusely. Cardiac silhouette is normal. No pneumothorax, pleural effusion or overt pulmonary edema. Chronic appearing lateral left rib fractures. Bones appear grossly intact. IMPRESSION: No significant change in appearance of the chest with numerous chronic reticulonodular opacities suggestive of an infectious or inflammatory bronchiolitis. ACT 112: Negative or not required by law. The above report was generated using voice recognition software. It may contain grammatical, syntax or spelling errors. Electronically signed by: Boy Griffith M.D. 11/16/2024 3:09 PM Abdomen/Pelvis CT 11/16/24 16:17 EXAM: CT Abdomen and Pelvis Without Intravenous Contrast INDICATION: Weakness and worsening confusion. Unwitnessed fall 2 days ago. Kidney failure. TECHNIQUE: Axial computed tomography images of the abdomen and pelvis without intravenous contrast. Sagittal and coronal reformatted images were created and reviewed. This CT exam was performed using one or more of the following dose reduction techniques: automated exposure control, adjustment of the mA and/or kV according to patient size, and/or use of iterative reconstruction technique. COMPARISON: 09/21/2022 FINDINGS: Limitations: None. Lung bases: There is mild bronchiectasis with worsening tree-in-bud and patchy nodular infiltrates in both lower lungs. Pleural space: No basilar pleural effusion. Heart: No abnormality noted. Mediastinum: No abnormality noted. ABDOMEN: Liver: Lack of intravenous contrast limits detection of some masses. No abnormality noted. Gallbladder and bile ducts: No calcified stones or surrounding fluid. Pancreas: No pancreatic mass, calcification, inflammation or ductal dilation noted. Spleen: No significant abnormality noted. Adrenals: No significant abnormality noted. Kidneys and ureters: Simple left renal cyst/s. No simple cyst follow-up necessary. Right kidney appears normal. No renal stone, hydronephrosis or perinephric fluid. The right kidney appears normal. Stomach and bowel: The stomach is collapsed and not well assessed. There is a moderate amount of formed stool throughout the colon with diffuse diverticulosis. No diverticulitis or obstruction. PELVIS: Appendix: Well seen and appears normal. Bladder: Appears normal for the degree of filling. No stones or inflammation. No large mass. Masses may not be detected in the absence of opacification. Reproductive: No abnormalities noted. ABDOMEN and PELVIS: Intraperitoneal space: No free air. No significant fluid collection. 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 Multilevel lower lumbar laminectomy changes. No acute osseous abnormality. Soft tissues: No significant abnormality noted. Vasculature: Atherosclerotic calcification of the aorta and branches. No aneurysm. Lymph nodes: No pathologically enlarged lymph nodes. IMPRESSION: 1. Moderate amounts of stool in the colon and diffuse diverticulosis. No diverticulitis. 2. Worsening chronic small airway changes with increasing nodular infiltrates and tree-in-bud type opacities most likely inflammatory. ACT 112: Negative or not required by law. Electronically signed by Mariam White 11-16-2024 5:[address] 11/16/24 16:17 EXAM: CT Head Without Intravenous Contrast INDICATION: Unwitnessed fall. Worsening confusion. Weakness. TECHNIQUE: Axial computed tomography images of the head/brain without intravenous contrast. Sagittal and/or coronal reformats are provided. Sagittal and coronal reformatted images were created and reviewed. This CT exam was performed using one or more of the following dose reduction techniques: automated exposure control, adjustment of the mA and/or kV according to patient size, and/or use of iterative reconstruction technique. COMPARISON: 01/05/2021 FINDINGS: Limitations: None. Brain and extra-axial spaces: There is age appropriate cortical atrophy and chronic ischemic periventricular white matter hypodensity. No acute infarct, hemorrhage or mass noted. Bones/joints: No acute changes. Soft tissues: No significant abnormality noted. Vasculature: No acute abnormality noted. Sinuses: No layering fluid in the visualized portions of the paranasal sinuses. Mastoid air cells: No mastoid effusion. Orbits: No significant abnormality noted. IMPRESSION: Cerebral atrophy. No acute changes. ACT 112: Negative or not required by law. Electronically signed by Mariam White 11-16-2024 5:54 PM ECG Additional Comments: ECG revealed NSR at 90 bpm; QTc 455 Code Status & VTE Plan Code Status DNR/DNI (confirmed with both patient and patient's son at bedside) VTE Prophylaxis Plan VTE Prophylaxis will be ordered: Yes Supervising Physician Co-Signing Physician Notes Patient seen and examined, chart reviewed, case discussed with Jeet Coe PA-C and I agree with the assessment and plan as above except as otherwise noted Labs and images reviewed 84-year-old male with past medical history of COPD, ambulatory dysfunction who presents with pneumonia and increasing confusion. On was home Tuesday. CXR +bronchiolitis. Multiple recent viral infections. Nko leukocytosis. +cough. PCT is elevated at 1.88. Pt is covered with abx --> Rocephin/Doxy. Lungs a grossly clear on exam. Somnolent, but awakens easily. MM tacky. +encourage orals. PT/OT pending Agree w/ above PG Care Time/CCT Total # of Minutes Spent Total Time Spent with Patient: Total time spent is greater than 50% in coordination of care (as documented) at patient's floor/unit and/or counseling patient: C[place] [address] INT INP/OBS CARE 3/75MIN Patient Type Established Medical Decision Making High Complexity Diagnoses Pneumonia J18.9 COPD (chronic obstructive pulmonary disease) J44.9 COPD type: unspecified COPD Ambulatory dysfunction R26.2 KEN (acute kidney injury) N17.9 Uncontrolled type 2 diabetes mellitus with hyperglycemia, with long-term current use of insulin E11.65; Z79.4 Hyponatremia E87.1 Generalized weakness R53.1 (2) COPD (chronic obstructive pulmonary disease) COPD type: unspecified COPD Qualified Code(s): J44.9 - Chronic obstructive pulmonary disease, unspecified
[2024-11-16] MEDS ORDERED: CARBOHYDRATES FOR HYPOGLYCEMIA PO PRN (19:03)
[2024-11-16] MEDS ORDERED: DEXTROSE 50% 50 ML SYRINGE IV PRN (19:03)
[2024-11-16] MEDS ORDERED: GLUCAGON FOR INJ 1 MG VIAL SQ PRN (19:03)
[2024-11-16] MEDS ORDERED: GLUCOSE 10 TAB/TUBE PO PRN (19:03)
[2024-11-16] MEDS ORDERED: GLUCOSE 40% GEL 15 GM TUBE PO PRN (19:03)
[2024-11-16] MEDS ORDERED: PHARMACY GLYCEMIC MGMT CONSULT PRN (19:14)
[2024-11-16] MEDS: DOXYCYCLINE HYCLATE 100 MG in DEXTROSE 5% MINI-B 100 ML IV STA (19:43)
[2024-11-16] MEDS: Patient's HEIGHT &/or WEIGHT Needed SCH (19:55)
[2024-11-16] MEDS: INSULIN ASPART PER UNIT CHARGE SC SCH (20:33)
[2024-11-16] MEDS: SODIUM CHLORIDE 0.9% 1,000 ML IV SCH (21:45)
--- NOTE | 2024-11-16 22:16 | Electrocardiogram Report ---
Test Reason : Blood Pressure : */* mmHG Vent. Rate : 90 BPM Atrial Rate : 90 BPM P-R Int : 148 ms QRS Dur : 74 ms QT Int : 372 ms P-R-T Axes : 60 -15 68 degrees QTcB Int : 455 ms Normal sinus rhythm Cannot rule out Anterior infarct , age undetermined Abnormal ECG When compared with ECG of 30-Oct-2024 16:42, No significant change Confirmed by Pierce Joe ([id number]) on 11/16/2024 10:15:41 PM Referred By: Confirmed By: Pierce Joe
[2024-11-16] MEDS ORDERED: BENZONATATE 100 MG CAPSULE PO PRN (22:24)
[2024-11-16] MEDS ORDERED: ALBUT/IPRATROP 3MG/0.5MG NEB 3 ML VIAL NEB PRN (22:24)
[2024-11-16 23:31] LABS: Appearance Urine Cloudy (Clear); Bacteria Urine Automated None Seen (None Seen); Bilirubin Urine 1+ (Negative); Blood Urine 1+ (Negative); Color Urine Dark Yellow; Glucose Urine UA 1+ (Negative); Ketones Urine Trace (Negative); Leukocyte Esterase Urine Trace (Negative); Nitrite Urine Negative (Negative); Protein Urine 2+ (Negative); RBC Urine Automated 0-2 /hpf (0-2); Specific Gravity Urine 1.035 (1.000-1.030); Urobilinogen Urine Negative (Negative); WBC Urine Automated 21-50 /hpf (0-5)
[2024-11-16] MEDS: PANTOprazole 40 MG TAB PO SCH (23:48)
[2024-11-16] MEDS: VENLAFAXINE HCL XR 150 MG CAPXR PO SCH (23:48)
[2024-11-16] MEDS: MIRTAZAPINE SOLTAB 15 MG PO SCH (23:48)
[2024-11-16] MEDS: OLANZAPINE 2.5 MG TAB PO SCH (23:49)
[2024-11-16] MEDS: ADVANCED PROBIOTIC 625 MG CAPSULE PO SCH (23:50)
[2024-11-16] MEDS: ATORVASTATIN 40 MG TAB PO SCH (23:50)
[2024-11-16] MEDS: TAMSULOSIN HCL 0.4 MG CAP PO SCH (23:50)
[2024-11-17] MEDS: ACETAMINOPHEN 325 MG TAB PO PRN (00:36)
[2024-11-17 06:40] LABS: Hematocrit (blood only) 30.5 % (42.0-52.0); Hemoglobin 10.3 g/dl (14.0-18.0); Mean Corpuscular Hemoglobin 28.7 pg (25.0-34.0); Mean Corpuscular Hgb Conc 33.8 g/dL (32.0-36.0); Mean Platelet Volume 8.9 fL (9.4-12.4); Platelet Count 313 K/uL (130-400); RDW Coefficient of Variation 14.1 % (11.5-14.5); RDW Standard Deviation 43.8 fL (36.4-46.3); Red Blood Count 3.59 M/uL (4.70-6.10); White Blood Count 7.79 K/ul (4.8-10.8)
[2024-11-17 07:04] LABS: Basophils # (auto) 0.03 K/uL (0.00-0.20); Basophils % (auto) 0.4 %; Eosinophils # (auto) 0.09 K/uL (0.00-0.50); Eosinophils % (auto) 1.2 %; Immature Granulocytes # (auto) 0.04 K/uL (0.01-0.20); Immature Granulocytes % (auto) 0.5 %; Lymphocytes # (auto) 0.62 K/uL (1.20-3.40); Monocytes # (auto) 0.89 K/uL (0.11-0.59); Monocytes % (auto) 11.4 %; Neutrophils # (auto) 6.12 K/uL (1.40-6.50); Neutrophils % (auto) 78.5 %; Polychromasia 1+
[2024-11-17 07:17] LABS: BUN Creatinine Ratio 25.8 (10-20); Calcium 8.6 mg/dl (8.6-10.3); Creatinine Clr Calc Pharmacy 53.2 ml/min; Potassium 3.7 mmol/L (3.5-5.1)
[2024-11-17] MEDS: DOXYCYCLINE HYCLATE 100 MG in DEXTROSE 5% MINI-B 100 ML IV SCH (08:54)
[2024-11-17] MEDS: ASPIRIN 81 MG ECTAB PO SCH (08:55)
[2024-11-17] MEDS: predniSONE 20 MG TAB PO SCH (08:55)
[2024-11-17] MEDS: METOPROLOL SUCC 50MG EXT REL TAB PO SCH (08:55)
[2024-11-17] MEDS: UMECLIDINIUM/VILANTEROL 62.5/25MCG 7 PUFFS/INHALER INH SCH (08:56)
[2024-11-17] MEDS: FLUTICASONE FUROATE 100MCG 14 PUFFS/INHALER INH SCH (08:57)
[2024-11-17] MEDS ORDERED: NON-FORMULARY MEDICATION (Fluticasone-Umeclidin-Vilanter [Trelegy Ellipta] 100-62.5-25 mcg INH SCH (09:00)
[2024-11-17] MEDS: LANTUS PER UNIT CHARGE SQ SCH ×2 (09:01→20:51)
[2024-11-17] MEDS: ALBUT/IPRATROP 3MG/0.5MG NEB 3 ML VIAL NEB SCH (10:35)
[2024-11-17] MEDS: FERROUS SULFATE 325 MG TAB PO SCH (13:05)
[2024-11-17] MEDS: cefTRIAXone SODIUM 2,000 MG/50 ML BAG IV SCH (18:29)
--- NOTE | 2024-11-17 20:28 | Hospitalist Progress Note ---
Date of Service November 17, 2024 Assessment & Plan (1) Pneumonia: Plan: Darrick is a pleasant 84-year-old male with PMH of T2DM, KHUSHBU, TIA, COPD, hypothyroidism, vitamin B12 deficiency, dyslipidemia, anxiety/depression, bladder cancer who p/w increased weakness and confusion for a few days prior to admission w/ an unwitnessed fall on Tuesday night. He had a human metapneumovirus infection the end of Sep into beginning of Oct and was treated with steroids and azithromycin. He continued to have decline despite treatment. Here with secondary bacterial PNA and COPD exacerbation CXR with reticulonodular opacities diffusely. CT A/P showed basilar tree in bud opacities No fevers or leukocytosis, BioFire negative, Procal elevated at 1.88 Improving on ceftriaxone and azithro, along with prednisone -continue ceftriaxone and doxy and convert to po cefdinir and doxy on discharge to finish out course -continue pulm toilet, prednisone burst -follow CBC, BMP in AM -check sputum culture if can give sample -follow chest imaging to resolution in 4-6 weeks (2) COPD (chronic obstructive pulmonary disease): Plan: Improving -continue Incentive spirometry, flutter valve, Duoneb 3mL Q6R as needed, home inhalers -continue Prednisone 20mg p.o. 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 Normocytic. TSH normal -check CBC, Fe studies, B12, folate in AM #BPH-continue tamsulosin #Depression/Anxiety-no acute issues -continue venlafaxine, olanzapine, mirtazapine Disposition:continued stay MedSurg telemetry, but likely stable for dc to home tomorrow if doing well on PT/OT assessments VTE PPx: SCDs, ok to add Lovenox SQ for DVT prevention Admission and Anticipated Discharge Date Admission Date: November 16, 2024 Subjective Pt feeling much better. More energy, was out of bed and ambulating today with nursing. Some cough, no SOB. On room air Tele with NSR, rates 90s Physical Exam Constitutional: WD/WN, vitals as above Eyes: PERRL, conjunctivae normal, anicteric sclerae ENMT: external ear and nose normal, oropharynx normal Neck: trachea midline, no thyromegaly Respiratory: normal respiratory effort; no cough Auscultation: + crackles (at bases bilat); no rhonchi and no wheezes Cardiovascular: RRR, no murmur, no edema Chest (Breasts): Chest: normal inspection of chest Gastrointestinal (Abdomen): normal bowel sounds, soft, nontender, no hepatosplenomegaly Musculoskeletal: Extremities: extremities normal to inspection; no cyanosis and no clubbing Skin: no rashes, warm and dry Neurologic: moves all extremities and awake; no focal motor deficits Psychiatric: A+Ox3, euthymic affect Lymphatic: no lymphedema Results & Data Results & Data Vital Signs (Past 12 Hours) Vital Signs Temp Pulse Pulse Resp BP Pulse Ox O2 Del Method 11/17/24 20:11 36.4 C L 86 18 113/66 95 Room Air 11/17/24 20:08 84 18 98 Room Air 11/17/24 15:32 36.6 C 83 18 110/66 94 Room Air 11/17/24 13:58 90 11/17/24 12:07 90 11/17/24 11:40 36.6 C 90 20 117/68 93 Room Air 11/17/24 10:36 91 H 18 94 Room Air Laboratory Results CBC, BMP, troponin reviewed PG Care Time/CCT Total # of Minutes Spent Total Time Spent with Patient: Total time spent is greater than 50% in coordination of care (as documented) at patient's floor/unit and/or counseling patient: Coding Level of Care Code 39290 SUB INP/OBS CARE MIN Diagnoses Pneumonia J18.9 COPD (chronic obstructive pulmonary disease) J44.9 COPD type: unspecified COPD Ambulatory dysfunction R26.2 KEN (acute kidney injury) N17.9 Uncontrolled type 2 diabetes mellitus with hyperglycemia, with long-term current use of insulin E11.65; Z79.4 Hyponatremia E87.1 (2) COPD (chronic obstructive pulmonary disease) COPD type: unspecified COPD Qualified Code(s): J44.9 - Chronic obstructive pulmonary disease, unspecified
[2024-11-17] MEDS: ENOXAPARIN INJ 40 MG/0.4 ML SYR SQ SCH (22:02)
[2024-11-18] MEDS: INSULIN ASPART PER UNIT CHARGE SC SCH (00:29)
[2024-11-18 06:42] LABS: Basophils # (auto) 0.01 K/uL (0.00-0.20); Basophils % (auto) 0.1 %; Eosinophils # (auto) 0.06 K/uL (0.00-0.50); Eosinophils % (auto) 0.9 %; Hematocrit (blood only) 29.3 % (42.0-52.0); Hemoglobin 9.9 g/dl (14.0-18.0); Immature Granulocytes # (auto) 0.07 K/uL (0.01-0.20); Lymphocytes # (auto) 0.78 K/uL (1.20-3.40); Lymphocytes % (auto) 11.1 %; Mean Corpuscular Hemoglobin 29.1 pg (25.0-34.0); Mean Corpuscular Hgb Conc 33.8 g/dL (32.0-36.0); Mean Corpuscular Volume 86.2 fL (80.0-100.0); Mean Platelet Volume 8.9 fL (9.4-12.4); Monocytes # (auto) 0.64 K/uL (0.11-0.59); Monocytes % (auto) 9.1 %; Neutrophils # (auto) 5.45 K/uL (1.40-6.50); Neutrophils % (auto) 77.8 %; Platelet Count 334 K/uL (130-400); RDW Coefficient of Variation 14.1 % (11.5-14.5); RDW Standard Deviation 44.5 fL (36.4-46.3); White Blood Count 7.01 K/ul (4.8-10.8)
[2024-11-18 07:09] LABS: BUN Creatinine Ratio 19.4 (10-20); Calcium 8.9 mg/dl (8.6-10.3); Magnesium 1.7 mg/dl (1.7-2.4); Potassium 3.9 mmol/L (3.5-5.1)
[2024-11-18 07:22] VITALS: RESP 18; TEMP 97.3
[2024-11-18 07:25] LABS: Folate (Folic Acid),Ser orPlas > 22.30 ng/ml (>5.38)
[2024-11-18 07:26] LABS: Vitamin B12 965 pg/ml (180-914)
[2024-11-18 07:29] LABS: Ferritin 274.2 ng/ml (8-388)
--- NOTE | 2024-11-18 07:34 | Discharge Summary ---
Discharge Summary Date of Service November 18, 2024 Principal Dx & Hospital Course #1 = Principal Diagnosis (1) Pneumonia: Darrick is a pleasant 84-year-old male with PMH of T2DM, KHUSHBU, TIA, COPD, hypothyroidism, vitamin B12 deficiency, dyslipidemia, anxiety/depression, bladder cancer who p/w increased weakness and confusion for a few days prior to admission w/ an unwitnessed fall on Tuesday night. He had a human metapneumovirus infection the end of Sep into beginning of Oct and was treated with steroids and azithromycin. He continued to have decline despite treatment. He was admitted for treatment of secondary bacterial pneumonia and COPD exacerbation. He clinically improved on antibiotics, did well with PT, no subsequently discharged home. To do as outpatient: 1. Complete a 1 week course of antibiotics with cefdinir/doxycycline with 5 additional days of cefdinir 300 mg p.o. twice daily and doxycycline 100 mg p.o. twice daily 2. Follow-up chest imaging to resolution with PCP in 4 to 6 weeks 3. Routine follow-up with PCP 4. Complete prednisone burst with 3 additional days of prednisone 20 mg p.o. Pneumonia CXR with reticulonodular opacities diffusely. CT A/P showed basilar tree in bud opacities No fevers or leukocytosis, BioFire negative, Procal elevated at 1.88 Improving on ceftriaxone and azithro, along with prednisone Converted to cefdinir/doxycycline on discharge Continue prednisone burst with 20 mg p.o. daily (2) COPD (chronic obstructive pulmonary disease): Improving -continue Incentive spirometry, flutter valve, Duoneb 3mL Q6R as needed, home inhalers -continue Prednisone 20mg p.o. 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 Normocytic. TSH normal -check CBC, Fe studies, B12, folate in AM #BPH-continue tamsulosin #Depression/Anxiety-no acute issues -continue venlafaxine, olanzapine, mirtazapine Disposition:continued stay MedSurg telemetry, but likely stable for dc to home tomorrow if doing well on PT/OT assessments VTE PPx: SCDs, ok to add Lovenox SQ for DVT prevention Admission HPI Per Admitting Provider Darrick is a pleasant 84-year-old male with PMH of T2DM, KHUSHBU, vitamin B12 deficiency, dyslipidemia, anxiety, depression, bladder cancer, and hematuria. He presented on 11/16 for increased weakness and disorientation. Patient's son (Jesus) is currently at bedside, and provides most of the history. Son reports that he has been "out of sorts", with increased confusion and leg weakness over the past few days. Patient reportedly had an unwitnessed fall on Tuesday night, while he was traveling from his bathroom back to bed. Patient reports he was not dizzy prior to falling, but instead stumbled on the carpet. No LOC. He is unsure if he hit his head. He does have rug simon on both of his knees from crawling back up into bed. Both patient and patient's son deny any strokelike symptoms such as slurred speech, facial droop, or unilateral deficits. He does have history of a TIA around 8 to 10 years ago. Additional remote history includes waxing and waning of several respiratory diseases over the holidays. For instance, he was told he had human metapneumovirus, and also received treatment for pneumonia (course of azithromycin) and COPD flares (prednisone taper). Patient endorses ongoing dyspnea on exertion; he denies SOB at rest. He continues to have a productive cough (light yellow, creamy colored). No blood in cough. No chest pain or pleuritic chest pain. He denies history of blood clots in his legs or his lungs. Patient denies smoking, tobacco use, recent alcohol use. Patient's vital stable at time of admission. ED course: Ceftriaxone 2000 mg IV NSS 1000 mL IV ROS: Patient endorses productive cough, GOMEZ, confusion, and lower extremity weakness. Patient denies fever, chills, night-sweats, dizziness, lightheadedness, RUTH, stroke-like s/s, neck pain, changes in vision, tinnitus, ear pain, chest pain, p leuritic CP, SOB at rest, hemopytsis, new lower back pain, abdominal pain, N/V/D, or numbness/tingling/pain in the legs. Discharge Exam General: A&Ox3. NAD. Cooperative. HEENT: Atraumatic, normocephalic. Vision/hearing intact Pulm: CTAB A&P. -wheezes, -rales, -rhonchi. Symmetrical chest rise. No increased work of breathing. No respiratory distress. Cardiac: RRR, -mrg. Radial pulses intact and symmetrical. Abdominal: Nontender, nondistended, soft. BS present. Discharge Plan Discharge Items Patient Disposition: Home - Self-Care Reason For Visit: AMBULATORY DYSFUNCTION, AMS; ? RESIDUAL PNA Discharge Diagnosis: Secondary pneumonia Activity: Resume your previous activity Non-emergency contact: Primary Care Provider Call non-emergency contact if: you have any medication questions, your symptoms worsen and your pain is not controlled Follow-up/Referrals: Maribell Worrell CRNP [Primary Care Provider] - Diet: Carb Consistent or DM2 and Heart Healthy Addtl Attending Provider Instructions: You are seen in the hospital and treated for pneumonia. You received antibiotics while in the hospital and clinically improved. You have been converted to to oral antibiotics on discharge to complete 5 additional days of treatment, and have been prescribed 3 additional days of prednisone as noted below. Please take cefdinir 300 mg twice daily for 5 additional days. This is an antibiotic. Please take doxycycline 100 mg by mouth twice daily for 5 additional days. This is an antibiotic. This antibiotic can be very irritating if taken without food, or gets stuck in the throat. Please make sure to take this medication with food and drink a glass of water with each pill You have been prescribed a short course of prednisone. Please take prednisone 20 mg by mouth once daily in the morning for 3 additional days. Please start taking this the morning of 11/19. If you develop any new or worsening symptoms including fever, chills, sweats, chest pain, chest pressure, difficulty breathing, uncontrolled nausea/vomiting, rash, wheezing, passing out or nearly passing out, bleeding, black/bloody bowel movements, or other new or concerning symptoms please call your primary care physician, or call 911 for re-evaluation in the emergency department if you are very concerned. Pending Studies at Discharge: No Stand-Alone Forms: My [facility], Smoking Cessation Medications and DC Order Prescriptions: New prednisone 20 mg Tablet 20 mg PO QAM Qty: 3 0RF cefdinir 300 mg capsule 300 mg PO BID 5 Days Qty: 10 0RF doxycycline hyclate 100 mg capsule 100 mg PO BID 5 Days Qty: 10 0RF Continued mirtazapine 45 mg tablet 45 mg PO HS Rx Instructions: ordered by Dr. Mckeon venlafaxine 150 mg capsule,extended release 24hr 150 mg PO HS Rx Instructions: Ordered by Dr. Mckeon olanzapine 2.5 mg tablet 2.5 mg PO QPM Qty: 20 0RF Rx Instructions: temp increase dose till see Dr Mckeon ([facility] [place]) pen needle, diabetic [BD Ultra-Fine Miranda Pen Needle] 32 gauge x 5/32" needle See Dose Instructions .ROUTE .MEDSUPPLY Qty: 500 3RF Rx Instructions: use up to 5 a day to administer insulin ferrous sulfate 325 mg (65 mg iron) tablet 325 mg PO DAILY@1200 Qty: 30 11RF Rx Instructions: 325 mg PO AT NOON levothyroxine [Tirosint] 125 mcg capsule 125 mcg PO QAM Qty: 30 11RF Rx Instructions: brand necessary multivitamin [Daily Multi-Vitamin] Tablet 1 tab PO QAM Qty: 30 11RF tamsulosin [Flomax] 0.4 mg capsule 0.4 mg PO QPM Qty: 90 3RF cholecalciferol (vitamin D3) 125 mcg (5,000 unit) capsule 125 mcg PO DAILY@1200 Qty: 30 11RF Rx Instructions: 125 mcg PO AT NOON (DME) OneTouch Verio test strips Strip See Rx Instructions .ROUTE .MEDSUPPLY Qty: 500 3RF Rx Instructions: test BS 5 times a day atorvastatin 40 mg tablet 40 mg PO HS Qty: 30 11RF metoprolol succinate 50 mg tablet extended release 24 hr 50 mg PO BIDM Qty: 60 11RF Rx Instructions: 50 mg PO TWICE A DAY IN A.M. AND SUPPER albuterol sulfate [Ventolin HFA] 90 mcg/actuation HFA aerosol inhaler See Rx Instructions .ROUTE .COMPLEX Qty: 18 11RF Dose Instruction: INHALE 2 PUFFS EVERY 4 HOURS NEEDED FOR SHOIRTNESS OF BREATH. Rx Instructions: INHALE 2 PUFFS EVERY 4 HOURS NEEDED FOR SHORTNESS OF BREATH. pantoprazole 20 mg tablet,delayed release (DR/EC) 20 mg PO BIDM Qty: 180 3RF Rx Instructions: 20 mg PO TWICE DAILY ONCE IN A.M. AND ONCE AT SUPPER; codeine-guaifenesin 10-100 mg/5 mL liquid 5 ml PO Q6H PRN (Reason: For Cough) Qty: 473 0RF Rx Instructions: 5 ML every 6HR as needed for coughing insulin aspart U-100 [Novolog FlexPen U-100 Insulin] 100 unit/mL (3 mL) insulin pen 20 unit SQ TID Qty: 30 5RF Rx Instructions: Takes usually 8-12 units per meal with sliding scale. insulin glargine [Lantus Solostar U-100 Insulin] 100 unit/mL (3 mL) insulin pen See Rx Instructions SQ QAM Qty: 60 3RF Rx Instructions: 45 units subcut QAM; slowly titrate up to 60 units QD; TDD 60 units (DME) nebulizer and tubing See Rx Instructions .Route .MEDSUPPLY Qty: 1 0RF Rx Instructions: use 2-3 times a day. PLEASE INSTRUCT ON USE. Use- 99 yrs (DME) nebulizer accessories Kit See Rx Instructions .Route Qty: 1 0RF Rx Instructions: Use 2-3 times a day Dx:J44.9 Use=99 years Trelegy Ellipta 100-62.5-25 mcg blister with device 1 inh inhalation DAILY Qty: 28 11RF Debrox 6.5 % drops 5 drp otic (ear) BID 4 Days Qty: 15 0RF Rx Instructions: on hold at pharmacy ondansetron 4 mg tablet,disintegrating 4 mg PO Q8H PRN (Reason: nausea and vomiting) Qty: 30 3RF Rx Instructions: Not on list from pharmacy pt d/c phenergan albuterol sulfate 2.5 mg /3 mL (0.083 %) solution for nebulization See Rx Instructions .ROUTE .COMPLEX Qty: 180 6RF Dose Instruction: INHALE 1 VIAL VIA NEBULIZER FOUR TIMES A DAY NEEDED FOR SHORTNESS OF BREATH OR WHEEZING Rx Instructions: INHALE 1 VIAL VIA NEBULIZER FOUR TIMES A DAY NEEDED FOR SHORTNESS OF BREATH OR WHEEZING aspirin [Adult Low Dose Aspirin] 81 mg tablet,delayed release (DR/EC) 81 mg PO DAILY Qty: 30 5RF Rx Instructions: d/c plavix lactobacillus combination no.8 3 billion cell capsule 3,000 mmu cells PO UD Rx Instructions: 3,000 mmu cells po hs. Not on list from pharmacy administer with a meal benzonatate 200 mg capsule 200 mg PO TID PRN (Reason: cough) Qty: 30 0RF Discontinued prednisone 10 mg tablet 40 mg PO DAILY 7 Days Qty: 28 0RF prednisone 20 mg tablet 20 mg PO DAILY Qty: 4 0RF Discharge Orders: Discharge Order (Routine); Ordered 11/18/24 Ordered By: Wallace Aguiar/Other Patient Handouts: High Blood Sugar (Hyperglycemia), Hypoglycemia (Low Blood Sugar), Managing Type 2 Diabetes Admission Data Admit Date/Time: 11/16/24 19:13 Attending Provider: Wlalace Richter Admit Provider: Wallace Richter Primary Care Provider: Maribell Worrell Other Providers: Wallace Richter Hospital Stay Data Consultations 11/16/24 18:06 ED Decision to Admit Stat Diagnostic Imagining Performed 11/16/24 16:17 CT abd pelvis wo con Stat CT head/brain wo con Stat Discharge Instructions Given to Patient (Per Discharging Provider) You are seen in the hospital and treated for pneumonia. You received antibiotics while in the hospital and clinically improved. You have been converted to to oral antibiotics on discharge to complete 5 additional days of treatment, and have been prescribed 3 additional days of prednisone as noted below. Please take cefdinir 300 mg twice daily for 5 additional days. This is an antibiotic. Please take doxycycline 100 mg by mouth twice daily for 5 additional days. This is an antibiotic. This antibiotic can be very irritating if taken without food, or gets stuck in the throat. Please make sure to take this medication with food and drink a glass of water with each pill You have been prescribed a short course of prednisone. Please take prednisone 20 mg by mouth once daily in the morning for 3 additional days. Please start taking this the morning of 11/19. If you develop any new or worsening symptoms including fever, chills, sweats, chest pain, chest pressure, difficulty breathing, uncontrolled nausea/vomiting, rash, wheezing, passing out or nearly passing out, bleeding, black/bloody bowel movements, or other new or concerning symptoms please call your primary care physician, or call 911 for re-evaluation in the emergency department if you are very concerned. Total Time Total Time Spent Total Time Spent (In Minutes): Time spend day of discharge 35 minutes including direct patient care, documentation, review of labs and images, and coordination of care. Coding Level of Care Code 17894 INP/OBS DISCH >30 MIN Diagnoses Pneumonia J18.9 COPD (chronic obstructive pulmonary disease) J44.9 COPD type: unspecified COPD Ambulatory dysfunction R26.2 KEN (acute kidney injury) N17.9 Uncontrolled type 2 diabetes mellitus with hyperglycemia, with long-term current use of insulin E11.65; Z79.4 Hyponatremia E87.1
[2024-11-18 08:08] VITALS: BP 132/70; O2SAT 97
[2024-11-18 08:53] LABS: Estimated Average Glucose 292 mg/dl; Hemoglobin A1C 11.8 % (4.5-5.6)
[2024-11-18] MEDS ORDERED: LANTUS PER UNIT CHARGE SQ SCH (11:00)
[2024-11-18 11:10] VITALS: PULSE 81
== END 2024-11-18 11:28 | disposition home or self-care (01) ==
LOC: ED 14:04 → 2N 14:04 → SUATTDRO 19:13 → 2N 21:50

== ENCOUNTER 2025-04-30 09:02 | Observation (INO) ==
--- NOTE | 2025-04-24 13:42 | PAT Medication Instructions ---
Medication Instructions Date of Service April 24, 2025 Home Medications Medication Instructions Recorded nebulizer accessories #1 ea 12/08/21 nebulizer and tubing #1 ea 12/08/21 olanzapine 2.5 mg tablet 2.5 mg PO QPM #20 tabs 01/18/23 pen needle, diabetic 32 gauge x #500 ea 07/11/23" (BD Ultra-Fine Miranda Pen Needle) blood sugar diagnostic (OneTouch #500 ea 05/09/24 Verio test strips) atorvastatin 40 mg tablet 40 mg PO HS #30 tabs 05/15/24 metoprolol succinate 50 mg 50 mg PO BIDM #60 tabs 09/14/24 tablet,extended release 24 hr pantoprazole 20 mg tablet,delayed 20 mg PO BIDM #180 tabs 10/26/24 release Novolog FlexPen U-100 Insulin 100 20 unit (0.2 mL) subcut TID #30 mL 11/09/24 unit/mL (3 mL) subcutaneous (insulin aspart U-100) insulin glargine 100 unit/mL (3 See Rx Instructions subcut QAM #60 11/13/24 mL) subcutaneous pen (Lantus mL Solostar U-100 Insulin) flutter valve #1 ea 11/22/24 incentive spirometer #1 ea 11/22/24 aspirin 81 mg tablet,delayed 81 mg PO DAILY #30 tabs 12/07/24 release (Adult Low Dose Aspirin) fluticasone fur. 100 mcg-umeclid 1 inh inhalation DAILY #28 ea 01/11/25 62.5 mcg-vilant 25 mcg inhalat.powder (Trelegy Ellipta) Tirosint 125 mcg capsule 125 mcg PO QAM #30 caps 01/21/25 (levothyroxine) ferrous sulfate 325 mg (65 mg 325 mg PO DAILY@1200 #30 tabs 01/21/25 iron) tablet cholecalciferol (vitamin D3) 125 125 mcg PO DAILY@1200 #30 caps 02/15/25 mcg (5,000 unit) capsule tamsulosin 0.4 mg capsule (Flomax) 0.4 mg PO QPM #90 caps 02/15/25 multivitamin (Daily Multi-Vitamin 1 tab PO QAM #30 tabs 03/21/25 tablet) mirtazapine 45 mg tablet 45 mg PO HS venlafaxine 150 mg capsule,extended release 24 hr 150 mg PO HS olanzapine 2.5 mg tablet 2.5 mg PO QPM lactobacillus combination no.8 3 billion cell capsule 3,000 mmu cells PO UD ondansetron 4 mg disintegrating tablet 4 mg PO Q8H PRN carbamide peroxide 6.5 % ear drops (Debrox) 5 drp otic (ear) BID atorvastatin 40 mg tablet 40 mg PO HS metoprolol succinate 50 mg tablet,extended release 24 hr 50 mg PO BID albuterol sulfate 2.5 mg/3 mL (0.083 %) solution for nebulization See Rx Instructions .Route .COMPLEX albuterol sulfate 90 mcg/actuation aerosol inhaler (Ventolin HFA) See Rx Instructions .Route .COMPLEX pantoprazole 20 mg tablet,delayed release 20 mg PO BID benzonatate 200 mg capsule 200 mg PO TID PRN Novolog FlexPen U-100 Insulin 100 unit/mL (3 mL) subcutaneous (insulin aspart U- 100) 20 unit (0.2 mL) subcut TID insulin glargine 100 unit/mL (3 mL) subcutaneous pen (Lantus Solostar U-100 Insulin) See Rx Instructions subcut QAM aspirin 81 mg tablet,delayed release (Adult Low Dose Aspirin) 81 mg PO DAILY fluticasone fur. 100 mcg-umeclid 62.5 mcg-vilant 25 mcg inhalat.powder (Trelegy Ellipta) 1 inh inhalation DAILY Tirosint 125 mcg capsule (levothyroxine) 125 mcg PO QAM ferrous sulfate 325 mg (65 mg iron) tablet 325 mg PO DAILY@1200 codeine 10 mg-guaifenesin 100 mg/5 mL oral liquid 5 ml PO Q6H PRN cholecalciferol (vitamin D3) 125 mcg (5,000 unit) capsule 125 mcg PO DAILY@1200 tamsulosin 0.4 mg capsule (Flomax) 0.4 mg PO QPM multivitamin (Daily Multi-Vitamin tablet) 1 tab PO QAM Continue as directed fluticasone fur. 100 mcg-umeclid 62.5 mcg-vilant 25 mcg inhalat.powder (Trelegy Ellipta) 1 inh inhalation DAILY ASK your prescriber and surgeon aspirin 81 mg tablet,delayed release (Adult Low Dose Aspirin) 81 mg PO DAILY DO NOT take the morning of surgery lactobacillus combination no.8 3 billion cell capsule 3,000 mmu cells PO UD benzonatate 200 mg capsule 200 mg PO TID PRN Novolog FlexPen U-100 Insulin 100 unit/mL (3 mL) subcutaneous (insulin aspart U- 100) 20 unit (0.2 mL) subcut TID ferrous sulfate 325 mg (65 mg iron) tablet 325 mg PO DAILY@1200 codeine 10 mg-guaifenesin 100 mg/5 mL oral liquid 5 ml PO Q6H PRN cholecalciferol (vitamin D3) 125 mcg (5,000 unit) capsule 125 mcg PO DAILY@1200 multivitamin (Daily Multi-Vitamin tablet) 1 tab PO QAM Take morning of surgery With a small sip of water, OTHERWISE NOTHING TO EAT OR DRINK AFTER MIDNIGHT: ondansetron 4 mg disintegrating tablet 4 mg PO Q8H PRN(if needed) carbamide peroxide 6.5 % ear drops (Debrox) 5 drp otic (ear) BID metoprolol succinate 50 mg tablet,extended release 24 hr 50 mg PO BID albuterol sulfate 2.5 mg/3 mL (0.083 %) solution for nebulization See Rx Instructions .Route .COMPLEX albuterol sulfate 90 mcg/actuation aerosol inhaler (Ventolin HFA) See Rx Instructions .Route .COMPLEX(please bring with you to hospital day of surgery if possible) pantoprazole 20 mg tablet,delayed release 20 mg PO BID Tirosint 125 mcg capsule (levothyroxine) 125 mcg PO QAM Take evening before surgery mirtazapine 45 mg tablet 45 mg PO HS venlafaxine 150 mg capsule,extended release 24 hr 150 mg PO HS olanzapine 2.5 mg tablet 2.5 mg PO QPM ondansetron 4 mg disintegrating tablet 4 mg PO Q8H PRN(if needed) carbamide peroxide 6.5 % ear drops (Debrox) 5 drp otic (ear) BID atorvastatin 40 mg tablet 40 mg PO HS metoprolol succinate 50 mg tablet,extended release 24 hr 50 mg PO BID albuterol sulfate 2.5 mg/3 mL (0.083 %) solution for nebulization See Rx Ins tructions .Route .COMPLEX albuterol sulfate 90 mcg/actuation aerosol inhaler (Ventolin HFA) See Rx Instructions .Route .COMPLEX pantoprazole 20 mg tablet,delayed release 20 mg PO BID benzonatate 200 mg capsule 200 mg PO TID PRN(if needed) Novolog FlexPen U-100 Insulin 100 unit/mL (3 mL) subcutaneous (insulin aspart U- 100) 20 unit (0.2 mL) subcut TID codeine 10 mg-guaifenesin 100 mg/5 mL oral liquid 5 ml PO Q6H PRN(if needed) tamsulosin 0.4 mg capsule (Flomax) 0.4 mg PO QPM Insulin Dependent Diabetic Patients * Test your blood sugar the morning of surgery * If Blood Sugar is GREATER THAN 150, take HALF of your regular dose of: insulin glargine 100 unit/mL (3 mL) subcutaneous pen (Lantus Solostar U-100 Insulin). * If Blood Sugar is LESS THAN 150, DO NOT TAKE ANY: insulin glargine 100 unit/mL (3 mL) subcutaneous pen (Lantus Solostar U-100 Insulin). Other Notes If you have any questions please call us at [phone] or [phone] or [phone] or [phone]
--- NOTE | 2025-04-24 13:52 | Anesthesiology Consultation ---
Date of Service April 24, 2025 Assessment & Plan (1) Encounter for pre-operative examination: Plan - to assigned anesthesiologist discretion if CXR needs updated DOS. - check BSG am DOS. - PAT RN stated patient thought he was being admitted the night before surgery; Jolanta with surgeon's office advised that he will present DOS to standard protocol and that she discussed this with him. I left patient a message requesting he return call to discuss medication instructions for morning of surgery. They are also going to follow-up with patient as he is supposed to stop aspirin tomorrow per Jolnata and he already had picked up medications for 04/25. She states patient was made aware of this and it was written on his paperwork after their in-office visit. I called his pharmacy and Lamar states aspirin will be removed from his medication packs 04/26-04/30, she advised [facility] which packages the medications was also made aware. Amy Sanchez with [facility] confirmed adjustments for morning of surgery as she can see pre-admission report and will coordinate this for patient. He will take medications to [facility] today for aspirin to be removed for tomorrow (already taken today). I also discussed insulin instructions with patient and he wrote the instructions for novolog and lantus down and correctly repeated them back to me. He confirmed understanding and that he wrote down the insulin changes are only for the morning of surgery. Surgeon's office made aware. Addendum 04/30/25: I called patient this morning and he stated that his blood sugar was above 200 so he took half of his usual 50 unit dose of Lantus stating he administered 25 units of Lantus, has not and confirmed he will not use any Novolog. He expressed appreciation for call, denied any questions or concerns. - Per bridge engineer on 04/24/25: No known infectious disease contacts, current infectious disease symptoms in past 10 days or COVID positive test result in the past 30 days. Chart Review Chart Review: Acceptable Risk for Surgery and Patient NOT seen in Pre Admission Testing History Surgery Operation Date: 04/30/25 10:30 Proposed Procedures p TURBT (Transurethral Resection Bladder Tumor), Cut Out the Tumor(s) by Going Through the Urethra, With or Without Multiple Cup Biopsies of the Bladder - Jed aMlone MD Height/Weight Height: 6 ft Weight: 70.307 kg Allergies Allergy/AdvReac Type Severity Reaction Status Date / Time doxycycline AdvReac Intermediate nausea Verified 04/09/25 10:30 levofloxacin AdvReac Mild fidgety Verified 04/09/25 10:30 and anxiety oxycodone AdvReac Mild NAUSEA AND Verified 04/09/25 10:30 VOMITING Medications Home Medications Medication Instructions Recorded Confirmed Last Taken mirtazapine 45 mg tablet 45 mg PO HS 03/24/21 04/24/25 02/02/23 venlafaxine 150 mg 150 mg PO HS 03/24/21 04/24/25 02/02/23 capsule,extended release 24 hr nebulizer accessories #1 ea 12/08/21 04/09/25 Unknown nebulizer and tubing #1 ea 12/08/21 04/09/25 Unknown olanzapine 2.5 mg tablet 2.5 mg PO QPM #20 tabs 01/18/23 04/24/25 02/02/23 pen needle, diabetic 32 gauge x #500 ea 07/11/23 04/09/25 Unknown 532" (BD Ultra-Fine Miranda Pen Needle) blood sugar diagnostic (OneTouch #500 ea 05/09/24 04/09/25 Unknown Verio test strips) atorvastatin 40 mg tablet 40 mg PO HS #30 tabs 05/15/24 04/24/25 Unknown metoprolol succinate 50 mg 50 mg PO BIDM #60 tabs 09/14/24 04/24/25 11/16/24 tablet,extended release 24 hr pantoprazole 20 mg tablet,delayed 20 mg PO BIDM #180 tabs 10/26/24 04/24/25 11/16/24 release Novolog FlexPen U-100 Insulin 100 20 unit (0.2 mL) subcut TID #30 mL 11/09/24 04/24/25 11/16/24 unit/mL (3 mL) subcutaneous (insulin aspart U-100) insulin glargine 100 unit/mL (3 See Rx Instructions subcut QAM #60 11/13/24 04/24/25 11/16/24 mL) subcutaneous pen (Lantus mL Solostar U-100 Insulin) flutter valve #1 ea 11/22/24 04/09/25 Unknown incentive spirometer #1 ea 11/22/24 04/09/25 Unknown aspirin 81 mg tablet,delayed 81 mg PO DAILY #30 tabs 12/07/24 04/24/25 Unknown release (Adult Low Dose Aspirin) fluticasone fur. 100 mcg-umeclid 1 inh inhalation DAILY #28 ea 01/11/25 04/24/25 Unknown 62.5 mcg-vilant 25 mcg inhalat.powder (Trelegy Ellipta) Tirosint 125 mcg capsule 125 mcg PO QAM #30 caps 01/21/25 04/24/25 Unknown (levothyroxine) ferrous sulfate 325 mg (65 mg 325 mg PO DAILY@1200 #30 tabs 01/21/25 04/24/25 Unknown iron) tablet cholecalciferol (vitamin D3) 125 125 mcg PO DAILY@1200 #30 caps 02/15/25 04/24/25 Unknown mcg (5,000 unit) capsule tamsulosin 0.4 mg capsule (Flomax) 0.4 mg PO QPM #90 caps 02/15/25 04/24/25 Unknown multivitamin (Daily Multi-Vitamin 1 tab PO QAM #30 tabs 03/21/25 04/24/25 Unknown tablet) Past Medical History Medical History Afib Single episode 09/2017 in setting of acute illness Ambulatory dysfunction hx, pt stated he has had no recent issues Asthma inhaler daily/prn, nebulizer prn CVA (cerebral vascular accident) 03/2017, continues on aspirin only, no longer on plavix Depression Diabetes mellitus, type 2 IDDM Diabetic peripheral neuropathy hx, "very mild" Dyslipidemia hx Dyspnea hx, w/exertion and steps Gastroparesis pt unsure Gross hematuria hx of, none recently per pt. History of COPD History of hypertension History of hypothyroidism History of [place] infection Has been evaluated by ID (started on triple ABX therapy fall 2018), following with pulmonology. Previously had a severe chronic cough but now feels this has mostly resolved on medications. 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 Hx of bladder cancer dx 2018, sx only, no chemo/xrt Hx of bronchiectasis Hx of gastroesophageal reflux (GERD) Hx of iron deficiency anemia Irritable bowel syndrome Laryngopharyngeal reflux hx Nausea Chronic, intermittent. Poor historian Pt reports some issues with recall/memory. Pulmonary nodules hx Risk for falls hx Past Family History Family History Mother Family history of diabetes mellitus Myocardial infarction Father Myocardial infarction Other No family history of bleeding disorder Denies family history of Ovarian cancer Prostate cancer Breast cancer Colorectal cancer Past Surgical History Surgical History H/O lumbar discectomy years ago, unsure of date History of bladder surgery TURBT= 11/01/17= GRADE VIEW 2, MAC 3.0, ETT 8.0 AT [facility] History of cataract surgery left and right History of colonoscopy Diverticulosis History of cystoscopy 12/03/20 @ [facility] History of esophagogastroduodenoscopy (EGD) History of tonsillectomy Social History Smoking Status: Former smoker tobacco type: cigarettes Do You Dip or Chew Tobacco: Yes (quit many years ago) Smoking End Date: 45 years ago Hx Alcohol Use: Yes ("none for years, never heavy drinker") Hx Substance Use: No substance use type: does not use Lab Results Anesthesia Preop Results Results Anesthesia Widget: WBC 7.46 K/ul (4.8-10.8) 04/09/25 Hgb 13.1 g/dl (14.0-18.0) L 04/09/25 Hct 38.4 % (42.0-52.0) L 04/09/25 Plt 298 K/uL (130-400) 04/09/25 Na 133 mmol/L (136-145) L 04/09/25 K 4.9 mmol/L (3.5-5.1) 04/09/25 Cl 98 mmol/L (98-107) 04/09/25 CO2 28 mmol/L (21-32) 04/09/25 BUN 29 mg/dl (6-23) H 04/09/25 Creat 1.33 mg/dl (0.6-1.4) 04/09/25 Glucose Level 241 mg/dl (70-99(Fasting)) H 04/09/25 Testing Electrocardiogram Date: 11/16/24 NSR, rate 90 bpm Cannot rule out anterior infarct, age undetermined No significant change vs 10/30/24 EKG Chest X-Ray Date: 12/04/24 1. Possible progressive consolidation anteriorly in the right middle lobe or lingula suggesting early pneumonia. 2. Persistent peripheral faint reticular nodular opacities are grossly stable. Echocardiogram Date: 10/29/17 EF 60-65% Normal LV wall motion Grade II diastolic dysfunction Mild mitral regurgitation Mild aortic root dilatation Compared to an echocardiogram obtained on 04/11/2017, the degree of mitral regurgitation appears slightly worse and there is stage II diastolic dysfunction. The aortic root also measured enlarged Other Testing Head CT 11/16/24 Cerebral atrophy. No acute changes. Abdomen pelvis 11/16/24 1. Moderate amounts of stool in the colon and diffuse diverticulosis. No diverticulitis. 2. Worsening chronic small airway changes with increasing nodular infiltrates and tree-in-bud type opacities most likely inflammatory.
--- NOTE | 2025-04-24 13:59 | PAT Medication Instructions ---
Medication Instructions Date of Service April 24, 2025 Home Medications Medication Instructions Recorded nebulizer accessories #1 ea 12/08/21 nebulizer and tubing #1 ea 12/08/21 olanzapine 2.5 mg tablet 2.5 mg PO QPM #20 tabs 01/18/23 pen needle, diabetic 32 gauge x #500 ea 07/11/23" (BD Ultra-Fine Miranda Pen Needle) blood sugar diagnostic (OneTouch #500 ea 05/09/24 Verio test strips) atorvastatin 40 mg tablet 40 mg PO HS #30 tabs 05/15/24 metoprolol succinate 50 mg 50 mg PO BIDM #60 tabs 09/14/24 tablet,extended release 24 hr pantoprazole 20 mg tablet,delayed 20 mg PO BIDM #180 tabs 10/26/24 release Novolog FlexPen U-100 Insulin 100 20 unit (0.2 mL) subcut TID #30 mL 11/09/24 unit/mL (3 mL) subcutaneous (insulin aspart U-100) insulin glargine 100 unit/mL (3 See Rx Instructions subcut QAM #60 11/13/24 mL) subcutaneous pen (Lantus mL Solostar U-100 Insulin) flutter valve #1 ea 11/22/24 incentive spirometer #1 ea 11/22/24 aspirin 81 mg tablet,delayed 81 mg PO DAILY #30 tabs 12/07/24 release (Adult Low Dose Aspirin) fluticasone fur. 100 mcg-umeclid 1 inh inhalation DAILY #28 ea 01/11/25 62.5 mcg-vilant 25 mcg inhalat.powder (Trelegy Ellipta) Tirosint 125 mcg capsule 125 mcg PO QAM #30 caps 01/21/25 (levothyroxine) ferrous sulfate 325 mg (65 mg 325 mg PO DAILY@1200 #30 tabs 01/21/25 iron) tablet cholecalciferol (vitamin D3) 125 125 mcg PO DAILY@1200 #30 caps 02/15/25 mcg (5,000 unit) capsule tamsulosin 0.4 mg capsule (Flomax) 0.4 mg PO QPM #90 caps 02/15/25 multivitamin (Daily Multi-Vitamin 1 tab PO QAM #30 tabs 03/21/25 tablet) mirtazapine 45 mg tablet 45 mg PO HS venlafaxine 150 mg capsule,extended release 24 hr 150 mg PO HS olanzapine 2.5 mg tablet 2.5 mg PO QPM atorvastatin 40 mg tablet 40 mg PO HS metoprolol succinate 50 mg tablet,extended release 24 hr 50 mg PO BID pantoprazole 20 mg tablet,delayed release 20 mg PO BID Novolog FlexPen U-100 Insulin 100 unit/mL (3 mL) subcutaneous (insulin aspart U- 100) 20 unit (0.2 mL) subcut TID insulin glargine 100 unit/mL (3 mL) subcutaneous pen (Lantus Solostar U-100 Insulin) See Rx Instructions subcut QAM aspirin 81 mg tablet,delayed release (Adult Low Dose Aspirin) 81 mg PO DAILY fluticasone fur. 100 mcg-umeclid 62.5 mcg-vilant 25 mcg inhalat.powder (Trelegy Ellipta) 1 inh inhalation DAILY Tirosint 125 mcg capsule (levothyroxine) 125 mcg PO QAM ferrous sulfate 325 mg (65 mg iron) tablet 325 mg PO DAILY@1200 cholecalciferol (vitamin D3) 125 mcg (5,000 unit) capsule 125 mcg PO DAILY@1200 tamsulosin 0.4 mg capsule (Flomax) 0.4 mg PO QPM multivitamin (Daily Multi-Vitamin tablet) 1 tab PO QAM Continue as directed fluticasone fur. 100 mcg-umeclid 62.5 mcg-vilant 25 mcg inhalat.powder (Trelegy Ellipta) 1 inh inhalation DAILY ASK your prescriber and surgeon aspirin 81 mg tablet,delayed release (Adult Low Dose Aspirin) 81 mg PO DAILY DO NOT take the morning of surgery Novolog FlexPen U-100 Insulin 100 unit/mL (3 mL) subcutaneous (insulin aspart U- 100) 20 unit (0.2 mL) subcut TID ferrous sulfate 325 mg (65 mg iron) tablet 325 mg PO DAILY@1200 cholecalciferol (vitamin D3) 125 mcg (5,000 unit) capsule 125 mcg PO DAILY@1200 multivitamin (Daily Multi-Vitamin tablet) 1 tab PO QAM Take morning of surgery With a small sip of water, OTHERWISE NOTHING TO EAT OR DRINK AFTER MIDNIGHT: metoprolol succinate 50 mg tablet,extended release 24 hr 50 mg PO BID pantoprazole 20 mg tablet,delayed release 20 mg PO BID Tirosint 125 mcg capsule (levothyroxine) 125 mcg PO QAM Take evening before surgery mirtazapine 45 mg tablet 45 mg PO HS venlafaxine 150 mg capsule,extended release 24 hr 150 mg PO HS olanzapine 2.5 mg tablet 2.5 mg PO QPM atorvastatin 40 mg tablet 40 mg PO HS metoprolol succinate 50 mg tablet,extended release 24 hr 50 mg PO BID pantoprazole 20 mg tablet,delayed release 20 mg PO BID Novolog FlexPen U-100 Insulin 100 unit/mL (3 mL) subcutaneous (insulin aspart U- 100) 20 unit (0.2 mL) subcut TID tamsulosin 0.4 mg capsule (Flomax) 0.4 mg PO QPM Insulin Dependent Diabetic Patients * Test your blood sugar the morning of surgery * If Blood Sugar is GREATER THAN 150, take HALF of your regular dose of: insulin glargine 100 unit/mL (3 mL) subcutaneous pen (Lantus Solostar U-100 Insulin). * If Blood Sugar is LESS THAN 150, DO NOT TAKE ANY: insulin glargine 100 unit/mL (3 mL). Other Notes If you have any questions please call us at [phone] or [phone] or [phone] or [phone]
--- NOTE | 2025-04-30 09:10 | Anesthesiology Consultation ---
Date of Service April 30, 2025 Assessment & Plan Chart Review Chart Review: Acceptable Risk for Surgery Consults Requested none History Surgery Operation Date: 04/30/25 10:30 Proposed Procedures p TURBT (Transurethral Resection Bladder Tumor), Cut Out the Tumor(s) by Going Through the Urethra, With or Without Multiple Cup Biopsies of the Bladder - Jed Malone MD Height/Weight Height: 6 ft Weight: 67.1 kg Allergies Allergy/AdvReac Type Severity Reaction Status Date / Time doxycycline AdvReac Intermediate nausea Verified 04/09/25 10:30 levofloxacin AdvReac Mild fidgety Verified 04/09/25 10:30 and anxiety oxycodone AdvReac Mild NAUSEA AND Verified 04/09/25 10:30 VOMITING Medications Home Medications Medication Instructions Recorded Confirmed Last Taken mirtazapine 45 mg tablet 45 mg PO HS 03/24/21 04/24/25 02/02/23 venlafaxine 150 mg 150 mg PO HS 03/24/21 04/24/25 02/02/23 capsule,extended release 24 hr nebulizer accessories #1 ea 12/08/21 04/09/25 Unknown nebulizer and tubing #1 ea 12/08/21 04/09/25 Unknown olanzapine 2.5 mg tablet 2.5 mg PO QPM #20 tabs 01/18/23 04/24/25 02/02/23 pen needle, diabetic 32 gauge x #500 ea 07/11/23 04/09/25 Unknown 5/32" (BD Ultra-Fine Miranda Pen Needle) blood sugar diagnostic (OneTouch #500 ea 05/09/24 04/09/25 Unknown Verio test strips) atorvastatin 40 mg tablet 40 mg PO HS #30 tabs 05/15/24 04/24/25 Unknown metoprolol succinate 50 mg 50 mg PO BIDM #60 tabs 09/14/24 04/24/25 11/16/24 tablet,extended release 24 hr pantoprazole 20 mg tablet,delayed 20 mg PO BIDM #180 tabs 10/26/24 04/24/25 11/16/24 release Novolog FlexPen U-100 Insulin 100 20 unit (0.2 mL) subcut TID #30 mL 11/09/24 04/24/25 11/16/24 unit/mL (3 mL) subcutaneous (insulin aspart U-100) insulin glargine 100 unit/mL (3 See Rx Instructions subcut QAM #60 11/13/24 04/24/25 11/16/24 mL) subcutaneous pen (Lantus mL Solostar U-100 Insulin) flutter valve #1 ea 11/22/24 04/09/25 Unknown incentive spirometer #1 ea 11/22/24 04/09/25 Unknown aspirin 81 mg tablet,delayed 81 mg PO DAILY #30 tabs 12/07/24 04/24/25 Unknown release (Adult Low Dose Aspirin) fluticasone fur. 100 mcg-umeclid 1 inh inhalation DAILY #28 ea 01/11/25 04/24/25 Unknown 62.5 mcg-vilant 25 mcg inhalat.powder (Trelegy Ellipta) Tirosint 125 mcg capsule 125 mcg PO QAM #30 caps 01/21/25 04/24/25 Unknown (levothyroxine) ferrous sulfate 325 mg (65 mg 325 mg PO DAILY@1200 #30 tabs 01/21/25 04/24/25 Unknown iron) tablet cholecalciferol (vitamin D3) 125 125 mcg PO DAILY@1200 #30 caps 02/15/25 04/24/25 Unknown mcg (5,000 unit) capsule tamsulosin 0.4 mg capsule (Flomax) 0.4 mg PO QPM #90 caps 02/15/25 04/24/25 Un known multivitamin (Daily Multi-Vitamin 1 tab PO QAM #30 tabs 03/21/25 04/24/25 Unknown tablet) Past Medical History Medical History Afib Single episode 09/2017 in setting of acute illness Ambulatory dysfunction hx, pt stated he has had no recent issues Asthma inhaler daily/prn, nebulizer prn CVA (cerebral vascular accident) 03/2017, continues on aspirin only, no longer on plavix Depression Diabetes mellitus, type 2 IDDM Diabetic peripheral neuropathy hx, "very mild" Dyslipidemia hx Dyspnea hx, w/exertion and steps Gastroparesis pt unsure Gross hematuria hx of, none recently per pt. History of COPD History of hypertension History of hypothyroidism History of [place] infection Has been evaluated by ID (started on triple ABX therapy fall 2018), following with pulmonology. Previously had a severe chronic cough but now feels this has mostly resolved on medications. 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 Hx of bladder cancer dx 2018, sx only, no chemo/xrt Hx of bronchiectasis Hx of gastroesophageal reflux (GERD) Hx of iron deficiency anemia Irritable bowel syndrome Laryngopharyngeal reflux hx Nausea Chronic, intermittent. Poor historian Pt reports some issues with recall/memory. Pulmonary nodules hx Risk for falls hx Past Family History Family History Mother Family history of diabetes mellitus Myocardial infarction Father Myocardial infarction Other No family history of bleeding disorder Denies family history of Ovarian cancer Prostate cancer Breast cancer Colorectal cancer Past Surgical History Surgical History H/O lumbar discectomy years ago, unsure of date History of bladder surgery TURBT= 11/01/17= GRADE VIEW 2, MAC 3.0, ETT [address] [facility] History of cataract surgery left and right History of colonoscopy Diverticulosis History of cystoscopy 12/03/[address] [facility] History of esophagogastroduodenoscopy (EGD) History of tonsillectomy Social History Smoking Status: Former smoker tobacco type: cigarettes Do You Dip or Chew Tobacco: Yes (quit many years ago) Smoking End Date: 45 years ago Hx Alcohol Use: Yes ("none for years, never heavy drinker") Hx Substance Use: No substance use type: does not use
[2025-04-30] MEDS ORDERED: PROMETHAZINE HCL 6.25 MG in SODIUM CHLORIDE 0.9% 50 ML IV PRN (09:11)
[2025-04-30] MEDS ORDERED: ONDANSETRON INJ 2 MG/ML 2 ML VIAL IV PRN (09:11)
[2025-04-30] MEDS ORDERED: ATROPINE SULFATE 0.1 MG/ML 10ML SYR IV PRN (09:11)
[2025-04-30] MEDS ORDERED: HYDROmorphone INJ 2 MG/ML SYR/VIAL IV PRN (09:11)
[2025-04-30] MEDS ORDERED: PROPOFOL IV EMULSION 10 MG/ML 20 ML VIAL IV ONE (09:21)
[2025-04-30] MEDS ORDERED: LIDOCAINE 2% 2 ML VIAL/AMP(20MG/ML) INFIL ONE (09:21)
[2025-04-30] MEDS ORDERED: ONDANSETRON INJ 2 MG/ML 2 ML VIAL ONE (09:21)
[2025-04-30] MEDS: LR 15ML/HR IV SCH (09:46)
[2025-04-30] MEDS: INSULIN HUMAN REGULAR SC STA ×2 (10:01→12:04)
[2025-04-30] MEDS: NovoLIN-R INSULIN PER UNIT CHARGE ONE ×2 (10:43→12:04)
--- NOTE | 2025-04-30 11:24 | History & Physical Bridge Note ---
Date of Service April 30, 2025 History & Physical Bridge Note I have examined the patient, reviewed the History & Physical and in the interval since the performance of the History & Physical I have noted the following changes of clinical significance: no changes noted
[2025-04-30] MEDS ORDERED: PHARMACY GLYCEMIC MGMT CONSULT PRN (13:29)
--- NOTE | 2025-04-30 13:47 | Operative Report ---
PG Post Operative Report Pre & Post Diagnosis Operation Date: 04/30/25 10:30 Pre-Op Diagnosis: Malignant Neoplasm of Bladder Post-Op Diagnosis: Malignant Neoplasm of Bladder I identified the patient and participated in the time-out.: Yes Procedure Operation Date: 04/30/25 10:30 Actual Procedures p Transurethral Resection Bladder Tumor(Not Applicable) - Jed Malone MD Surgeon Jed Malone MD Interventional Sale Consultant none Estimated Blood Loss 0 Findings Consistent with Post-Op Diagnosis Specimens none Description of Procedure The patient was identified in the preoperative holding area, appropriate informed consents were reviewed and completed and the patient was transferred to the operative suite. Upon arrival, appropriate antibiotics and anesthesia were administered and the patient was placed in dorsal lithotomy position and prepped and draped in sterile fashion. Beginning is a passed 26 K[place]ili resectoscope with 30 degree lens. Inspection reveals a healthy appearing urethra and a mildly enlarged prostate with a relatively high bladder neck. Upon entry into the bladder and immediately noted a relatively heavily trabeculated bladder. He had 4 distinct tumors around the dome of the bladder in the upper posterior wall, the largest of these was just under 2 cm in size. These were very consistent with low-grade TCC. There was a clear demarcation between the edge of the tumor and the normal healthy bladder. I used a loop electrode and initially tried to resect some of these tumors, however, the largely melted away with the touch of cautery. I used the cautery device then to destroy the remainder of the tumor and cauterized the base of each site. Of note, these tumors were essentially of a size that would have been amenable to treatment within the office, however he has had bleeding on multiple occasions in the past after TURBT or in office fulguration. After all tumors were completely treated I confirmed excellent hemostasis before emptying the bladder and concluding the case. There were no specimens collected. In total I would estimate I treated 3 cm of tumor. He will be kept overnight for observation as a precaution given his prior history of bleeding after surgery. I attest to the content of the Intraoperative Record and any orders documented therein. Any exceptions are noted below.
[2025-04-30] MEDS: CIPROFLOXACIN / D5W 400 MG/200 ML BAG IV SCH (14:04)
[2025-04-30] MEDS: LANTUS PER UNIT CHARGE SC SCH ×2 (14:33→20:18)
--- NOTE | 2025-04-30 14:56 | Anesthesiology Progress Note ---
Date of Service April 30, 2025 Anesthesia Post Procedure Vital Signs Vital Signs: Temp Pulse Pulse Resp BP Pulse Ox O2 Del Method 04/30/25 14:32 36.4 C L 74 18 111/66 94 Room Air 04/30/25 14:05 36.4 C L 76 18 115/66 91 Room Air 04/30/25 14:00 Room Air 04/30/25 13:31 36.4 C L 78 18 115/67 92 Room Air 04/30/25 13:20 81 21 128/55 L 93 Room Air 04/30/25 13:10 36.7 C 84 19 122/76 94 Room Air 04/30/25 13:00 86 20 130/63 93 Room Air 04/30/25 12:50 75 16 125/65 100 Oxymask 04/30/25 12:40 36.5 C 73 21 104/53 L 99 Oxymask 04/30/25 09:31 Room Air 04/30/25 09:29 36.7 C 95 H 20 130/76 92 Room Air O2 Flow Rate 04/30/25 14:32 04/30/25 14:05 04/30/25 14:00 04/30/25 13:31 04/30/25 13:20 04/30/25 13:10 04/30/25 13:00 04/30/25 12:50 5 04/30/25 12:40 5 04/30/25 09:31 04/30/25 09:29 Transfer of Care Handoff Completed per policy Notes Mental Status: alert / awake / arousable and participated in evaluation Patient Amnestic to Procedure: Yes Nausea / Vomiting: adequately controlled Pain: adequately controlled Airway Patency, RR, SpO2: stable & adequate BP & HR: stable & adequate Hydration State: stable & adequate Anesthetic Complications: no major complications apparent
--- NOTE | 2025-04-30 15:27 | Pharmacy Report ---
Pharmacy Glycemic Short Note 2 - Date of Service April 30, 2025 - Glycemic Short BSG Results (Last 24 hours): 04/30/25 04/30/25 04/30/25 09:38 09:41 10:33 POC Glucose 335 H* 323 H* 298 H 04/30/25 04/30/25 04/30/25 11:17 13:19 14:26 POC Glucose 292 H 226 H 131 H OUTPATIENT ANTIDIABETIC REGIMEN: * Lantus 50 units QAM * NovoLog 20 units SQ TID * HbA1c pending (05/01/25), 11.8% (11/18/24) ASSESSMENT: * Darrick is an 84 year old male status post TURP with a history of insulin dependent type 2 diabetes mellitus. Pharmacy has been consulted to assist with glycemic management while inpatient. * Fasting BSG this AM elevated, two IV regular insulin boluses given perioperatively, BSG trended down into 200s. Last basal dose given yesterday morning at home. Will give approximately half of home basal dose with dinner and a scale at bedtime up to full home dose if BSGs elevated. * He received Cipro preoperatively, no other glycemic stressors noted. NovoLog at a weight based stress of 3. PLAN FOR INPATIENT GLYCEMIC CONTROL: * Hold outpatient oral diabetes medications * Basal insulin * Lantus 30 units SQ daily * Lantus 0-20 units S@ HS (see eMAR for additional details) * Bolus insulin * NovoLog per scale ACHS or Q6hrs while NPO * Goal Range: Low 110 mg/dL - High 140 mg/dL * Correction Factor: 25 mg/dL/unit * Nutritional / Prandial insulin per carb ratio of 1 unit per 8 grams CHO consumed
[2025-04-30] MEDS: INSULIN ASPART PER UNIT CHARGE SC SCH (16:16)
[2025-04-30] MEDS: METOPROLOL SUCC 50MG EXT REL TAB PO SCH (16:28)
[2025-04-30] MEDS ORDERED: GLUCOSE 40% GEL 15 GM TUBE PO PRN (20:15)
[2025-04-30] MEDS ORDERED: GLUCAGON FOR INJ 1 MG VIAL SQ PRN (20:15)
[2025-04-30] MEDS ORDERED: DEXTROSE 50% 50 ML SYRINGE IV PRN (20:15)
[2025-04-30] MEDS: OLANZAPINE 2.5 MG TAB PO SCH (20:22)
[2025-04-30] MEDS: ATORVASTATIN 40 MG TAB PO SCH (20:22)
[2025-04-30] MEDS: MIRTAZAPINE SOLTAB 15 MG PO SCH (20:22)
[2025-04-30] MEDS: TAMSULOSIN HCL 0.4 MG CAP PO SCH (20:22)
[2025-04-30] MEDS: CARBOHYDRATES FOR HYPOGLYCEMIA PO PRN (20:24)
[2025-04-30] MEDS: VENLAFAXINE HCL XR 150 MG CAPXR PO SCH (20:47)
[2025-04-30] MEDS: GLUCOSE 10 TAB/TUBE PO PRN (21:01)
[2025-05-01 00:02] VITALS: RESP 16
[2025-05-01] MEDS: INSULIN ASPART PER UNIT CHARGE SC SCH (01:03)
[2025-05-01 07:43] LABS: Hematocrit (blood only) 34.0 % (42.0-52.0); Hemoglobin 11.3 g/dl (14.0-18.0); Immature Granulocytes # (auto) 0.03 K/uL (0.01-0.20); Immature Granulocytes % (auto) 0.4 %; Mean Corpuscular Hemoglobin 29.3 pg (25.0-34.0); Mean Corpuscular Volume 88.1 fL (80.0-100.0); Platelet Count 355 K/uL (130-400); RDW Standard Deviation 41.1 fL (36.4-46.3); Red Blood Count 3.86 M/uL (4.70-6.10); White Blood Count 7.23 K/ul (4.8-10.8)
[2025-05-01 08:13] LABS: Hemoglobin A1C 9.9 % (4.5-5.6)
--- NOTE | 2025-05-01 08:33 | Urology Progress Note ---
Date of Service May 01, 2025 Assessment & Plan (1) Bladder cancer: Plan Bladder cancer status post TURBT yesterday Urinating adequately Still with some blood Continue to hold aspirin until Tuesday Will reassess later today, possible discharge home later this afternoon if his u rine is clear, otherwise I would like to keep him 1 more day as a precaution as he has had numerous readmissions after prior procedures because of hematuria Admission and Anticipated Discharge Date Admission Date: April 30, 2025 Subjective Doing okay Had some blood in his urine but he is voiding adequately Had some hypoglycemia last night which was highly symptomatic No issues since that time Overall feels relatively well Justifiably anxious about going home because of his past experiences with hematuria and returns to the ER after procedures Results & Data Vital Signs (Past 12 Hours) Vital Signs Temp Pulse Pulse Resp BP Pulse Ox O2 Del Method 05/01/25 07:18 Room Air 05/01/25 07:17 36.6 C 81 16 102/59 L 92 Room Air 05/01/25 04:12 36.8 C 86 16 128/72 91 Room Air 05/01/25 00:01 36.6 C 80 16 114/64 94 Room Air PG Care Time/CCT Total # of Minutes Spent Total Time Spent with Patient: Total time spent is greater than 50% in coordination of care (as documented) at patient's floor/unit and/or counseling patient: Coding Level of Care Code None Diagnoses Malignant neoplasm of urinary bladder, unspecified site C67.9 Bladder location: unspecified site (1) Bladder cancer Bladder location: unspecified site Qualified Code(s): C67.9 - Malignant neoplasm of bladder, unspecified
[2025-05-01] MEDS: UMECLIDINIUM/VILANTEROL 62.5/25MCG 7 PUFFS/INHALER INH SCH (08:37)
[2025-05-01] MEDS: FLUTICASONE FUROATE 100MCG 14 PUFFS/INHALER INH SCH (08:37)
[2025-05-01] MEDS: MULTIVITAMIN TAB PO SCH (08:38)
[2025-05-01] MEDS ORDERED: NON-FORMULARY MEDICATION (Fluticasone-Umeclidin-Vilanter [Trelegy Ellipta] 100-62.5-25 mcg INH SCH (09:00)
[2025-05-01 11:02] VITALS: BP 120/68; PULSE 77; TEMP 97.5; O2SAT 91
[2025-05-01] MEDS: LANTUS PER UNIT CHARGE SC SCH (12:19)
[2025-05-01] MEDS: FERROUS SULFATE 325 MG TAB PO SCH (12:19)
== END 2025-05-01 13:44 | disposition home or self-care (01) ==
LOC: ASU 09:02 → 3N 09:02